=== PATIENT | male | born 1970 | race Caucasian/White ===

== ENCOUNTER 2019-08-25 11:57 | Inpatient (IN) | payer BC ==
[2019-08-25 13:02] LABS: Protime INR 1.24
[2019-08-25 13:03] LABS: Basophils % 0.5 % (0-1.3); Hematocrit 46.4 % (39.6-49.0); Lymphocytes % 5.8 % (15.3-44.8); RBC Red Blood Cell Count 5.08 M/uL (4.33-5.43)
[2019-08-25] MEDS ORDERED: NA CHLORIDE 0.9% 250 ML ONE (13:03)
[2019-08-25] MEDS ORDERED: NA CHLORIDE 0.9% 3,000 ML ONE (13:03)
[2019-08-25] MEDS ORDERED: CEFEPIME 2 GM VIAL ONE (13:03)
[2019-08-25] MEDS ORDERED: VANCOMYCIN/NS 1 gm 1 GM/250 ML BAG IV ONE ×3 (13:15→18:00)
[2019-08-25 13:16] LABS: ALT/SGPT 32 U/L (12-78); AST/SGOT 11 U/L (15-37); Albumin 3.4 g/dL (3.4-5.0); Alkaline Phosphatase 119 U/L (45-117); BUN Blood Urea Nitrogen 15 mg/dL (7-18); Bicarbonate 19 mmol/L (21-32); Bilirubin Direct 0.5 mg/dL (0-0.2); Bilirubin Total 1.4 mg/dL (0.2-1.0); CKMB Creatine Kinase MB < 1.0 ng/mL (0.3-3.6); Creatine Phosphokinase 55 U/L (39-308); Glucose Level 266 mg/dL (74-106); Lipase 119 U/L (73-393); Potassium 4.2 mmol/L (3.5-5.1); Protein, Total 8.3 g/dL (6.4-8.2); Sodium Level 126 mmol/L (136-145); Troponin (Emerg Dept Use Only) < 0.02 ng/mL (0.0-0.045)
[2019-08-25] MEDS ORDERED: FAMOTIDINE 20 MG/2 ML VIAL IV ONE (13:34)
[2019-08-25 13:42] LABS: Platelet Estimate ADEQ; Urine White Blood Cell Casts OK
[2019-08-25 13:43] LABS: Blood Morphology Comment NOT SEEN (NOT SEEN)
--- NOTE | 2019-08-25 13:58 | RAD REPORT ---
EXAM DESCRIPTION: RAD - Foot Right 3 View - 08/25/2019 1:29 pm CLINICAL HISTORY: Right foot pain status post injury FINDINGS: No fracture or dislocation is seen Pes planus deformity. Large calcaneal spur. 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 Amputation second phalanx Degenerative changes involve the MTP joints No bony destructive lesions seen
--- NOTE | 2019-08-25 14:01 | RAD REPORT ---
EXAM DESCRIPTION: Estelita Single View08/25/2019 1:29 pm CLINICAL HISTORY: Sepsis COMPARISON: 2017 FINDINGS: The lungs appear clear of acute infiltrate. The heart is normal size IMPRESSION: No acute abnormalities displayed
[2019-08-25] MEDS ORDERED: INSULIN -REGULAR HUMAN 50 UNIT/0.5 ML ML ONE (14:48)
--- NOTE | 2019-08-25 14:52 | ER ---
Nurse's Notes [facility] Name: Roverto Figueroa Age: 49 yrs Sex: Male : 1970 Arrival Date: 08/25/2019 Time: 12:[address] Private MD: Diagnosis: Cellulitis of right lower limb-foot Presentation: 08/25 12:15 Presenting complaint: Patient states: increased swelling to right foot, increased pain, iw black dot on very bottom and on side, hx of toe dislocation that never healed right, also feeling feverish X 2 days, vomiting last night. Transition of care: patient was not received from another setting of care. Onset of symptoms was August 23, 2019. Risk Assessment: Do you want to hurt yourself or someone else? Patient reports no desire to harm self or others. Initial Sepsis Screen: Does the patient meet any 2 criteria? HR > 90 bpm. Care prior to arrival: None. 12:15 Method Of Arrival: Wheelchair iw 12:15 Acuity: KAMRYN 3 iw 12:30 Initial Sepsis Screen: Does the patient have a suspected source of infection? Yes: Skin sg breakdown/wound. Historical: - Allergies: 12:18 No Known Allergies; iw - PMHx: 12:18 Diabetes - NIDDM; Hypertension; iw - PSHx: 12:18 None; iw - Immunization history:: Adult Immunizations not up to date. - Social history:: Smoking status: Patient/guardian denies using tobacco. - Ebola Screening: : Patient negative for fever greater than or equal to 101.5 degrees Fahrenheit, and additional compatible Ebola Virus Disease symptoms Patient denies exposure to infectious person Patient denies travel to an Ebola-affected area in the 21 days before illness onset No symptoms or risks identified at this time. Screenin:30 Abuse screen: Denies threats or abuse. Denies injuries from another. Nutritional sg screening: No deficits noted. Tuberculosis screening: No symptoms or risk factors identified. Never had TB. Sepsis Screening: . Infection: Patient has suspected or documented infection. SIRS - Systemic Inflammatory Response Syndrome: 2 or more indicates positive screen: [heart rate greater than 90 beats per minute] [WBC greater than or equal to 12,000/mm3 or less than or equal to 4,000/mm3 or greater than 0.5 K/uL bands]. Assessment: 12:30 General: Appears in no apparent distress. well groomed, well developed, well nourished, sg Behavior is calm, cooperative, appropriate for age. Pain: Pain: Complains of pain in right foot Quality of pain is described as aching, throbbing. 12:30 Neuro: Level of Consciousness is awake, alert, obeys commands, Oriented to person, sg place, time, Inbound Ingredient Logistics Specialist are equal bilaterally Moves all extremities. Gait is steady, Speech is normal, Pupils are PERRLA. Cardiovascular: Patient's skin is warm and dry. Chest pain is denied. Respiratory: Airway is patent Respiratory effort is even, unlabored, Respiratory pattern is regular, symmetrical. GI: Abdomen is round non-distended, Bowel sounds present X 4 quads. Reports normal bowel habits, tolerance of fluids, tolerance of food. : No signs and/or symptoms were reported regarding the genitourinary system. EENT: No signs and/or symptoms were reported regarding the EENT system. Derm: Skin is pink, warm \T\ dry. Skin temperature is hot Wound noted right foot Wound is unstageable due to eschar present at this time. Musculoskeletal: Circulation, motion, and sensation intact. Range of motion: intact in all extremities, Swelling present in right foot. 12:37 Reassessment: a code sepsis has been called. sg 12:58 Reassessment: Patient appears in no apparent distress at this time. pt requesting an sg antacid at this time, notified, orders received, pt medicated see EMAR. 15:50 Reassessment: a repeat lactate level has been drawn and sent per hospital sepsis sg protocol, awaiting results at this time. 15:56 Reassessment: Patient appears in no apparent distress at this time. ultrasound at sg bedside at this time. 16:10 Reassessment: Patient appears in no apparent distress at this time. Patient and/or sg family updated on plan of care and expected duration. Pain level reassessed. Patient is alert, oriented x 3, equal unlabored respirations, skin warm/dry/pink. ultrasound remains at bedside, pt to go to CT after Ultrasound, CT awaiting pt at this time, report called to Jigar COOK, pt to go to 2nd floor after radiology exam. Vital Signs: 12:17 BP 147 / 86; Pulse 130; Resp 18 S; Temp 99.1(O); Pulse Ox 97% on R/A; Weight 108.86 kg; iw Height 6 ft. (182.88 cm); Pain 8/10; 13:31 BP 142 / 80; Pulse 114; Resp 17; Temp 99.2; Pulse Ox 98% on R/A; sg 15:24 Pulse 102; Resp 17; Temp 99.0; Pulse Ox 99% on R/A; sg 12:17 Body Mass Index 32.55 (108.86 kg, 182.88 cm) iw ED Course: 12:04 Patient arrived in ED. mr 12:17 Triage completed. iw 12:17 Arm band placed on. iw 12:22 Kali Valiente, RN is Primary Nurse. sg 12:25 Sanju Jacobo MD is Attending Physician. kdr 12:26 Blood Glucose level 283 mg/dL. dh3 12:30 Patient has correct armband on for positive identification. Bed in low position. Call sg light in reach. Side rails up X2. Pulse ox on. NIBP on. Warm blanket given. Head of bed elevated. 12:38 Initial lab(s) drawn, by ED staff, sent to lab. Inserted saline lock: 20 gauge in right sg antecubital area, using aseptic technique. Blood collected. 12:40 First set of blood cultures drawn by ct. sg 12:44 EKG done, by ED staff, reviewed by Sanju Jacobo MD. dh3 13:30 Chest Single View XRAY In Process Unspecified. EDMS 13:30 Foot Right 3 View XRAY In Process Unspecified. EDMS 14:50 Paul Gutierrez MD is Hospitalizing Provider. kdr 16:14 No provider procedures requiring assistance completed. Patient admitted, IV remains in sg place. intact, No redness/swelling at site. Administered Medications: 12:58 Drug: NS 0.9% (30 ml/kg) 30 ml/kg Route: IV; Rate: bolus; Site: right antecubital; sg 15:40 Follow up: Response: No adverse reaction; IV Status: Completed infusion; IV Intake: sg 3265ml 12:58 Drug: Cefepime 2 grams Route: IVPB; Rate: 200 ml/hr; Infused Over: 30 mins; Site: right sg antecubital; 13:48 Drug: Pepcid 20 mg Route: IVP; Site: right antecubital; sg 14:15 Follow up: Response: No adverse reaction sg 13:49 Drug: vancoMYCIN 1 grams Route: IVPB; Infused Over: 2 hrs; Site: right antecubital; sg 14:48 Drug: Insulin Regular Human 6 units {Co-Signature: ragini (Kali Valiente RN).} Route: IVP; hb Site: right upper arm; 15:00 Follow up: Response: No adverse reaction; Blood sugar is lowered; medication was iw administered in the [facility] Intake: 15:40 IV: 3265ml; Total: 3265ml. sg Outcome: 14:51 Decision to Hospitalize by Provider. kdr 16:14 Admitted to Med/surg accompanied by tech, via stretcher, room 214, with chart, Report sg called to Jamie COOK 16:14 Condition: good 16:14 Instructed on the need for admit, safety practices. 16:22 Patient left the ED. sg Signatures: Dispatcher [employer] Kali Cerda RN RN sg Rittger, Kevin, MD MD [facility] Marissa Nadege Garcia RN RN iw Baxter, Heather, RN RN [place] [id number] Kali eid Corrections: (The following items were deleted from the chart) 12:53 12:52 Reassessment: a code sepsis has been called [facility] er 15:18 12:30 Pain: [facility] er 15:19 15:16 Neuro: Level of Consciousness is awake, alert, obeys commands, Oriented to sg person, place, time, Inbound Ingredient Logistics Specialist are equal bilaterally Moves all extremities. Gait is steady, Speech is normal, Pupils are PERRLA, 15:19 15:16 Cardiovascular: Patient's skin is warm and dry. Chest pain is denied sg 15:19 15:16 Respiratory: Airway is patent Respiratory effort is even, unlabored, Respiratory sg pattern is regular, symmetrical, sg 15:19 15:16 GI: Abdomen is round non-distended, Bowel sounds present X 4 quads. Reports sg normal bowel habits, tolerance of fluids, tolerance of food, sg 15:19 15:16 EENT: No signs and/or symptoms were reported regarding the EENT system. sg sg 15:19 15:16 : No signs and/or symptoms were reported regarding the genitourinary system. sg sg 15:19 15:16 Derm: Skin is pink, warm \T\ dry. Skin temperature is hot Wound noted right foot sg sg 15:19 15:16 Musculoskeletal: Circulation, motion, and sensation intact. Range of motion: sg intact in all extremities, Swelling present in right foot sg 15:24 12:30 Derm: Skin is pink, warm \T\ dry. Skin temperature is hot Wound noted right foot sg sg
--- NOTE | 2019-08-25 14:52 | EDPHYS ---
Physician Documentation [facility] Name: Roverto Figueroa Age: 49 yrs Sex: Male : 1970 Arrival Date: 08/25/2019 Time: 12:[address] Private MD: ED Physician Sanju Jacobo HPI: 08/25 15:47 This 49 yrs old Male presents to ER via Wheelchair with complaints of Foot kdr Pain, Feet Swelling. 15:47 The patient presents with swelling, The patient has had chronic swelling of the right kdr foot for several years after having his second toe amputated at [facility]. For the last several days, he has felt poorly with generalized body aches and malaise with subjective fever. he has also noted increased swelling and several lesions to the plantar and medial arch of the right foot.. The complaints affect the right foot. Context: The problem was sustained at home, resulted from a chronic condition, the patient can fully bear weight, the patient is able to ambulate, with mild difficulty. Onset: The symptoms/episode began/occurred gradually, 2 day(s) ago. Modifying factors: The symptoms are alleviated by nothing. Associated signs and symptoms: Pertinent positives: swelling, warmth, Pertinent negatives: calf tenderness, numbness, tingling. Severity of symptoms: At their worst the symptoms were mild, moderate, in the emergency department the symptoms are unchanged. The patient has not experienced similar symptoms in the past. The patient has been recently seen by a physician:. Historical: - Allergies: 12:18 No Known Allergies; iw - PMHx: 12:18 Diabetes - NIDDM; Hypertension; iw - PSHx: 12:18 None; iw - Immunization history:: Adult Immunizations not up to date. - Social history:: Smoking status: Patient/guardian denies using tobacco. - Ebola Screening: : Patient negative for fever greater than or equal to 101.5 degrees Fahrenheit, and additional compatible Ebola Virus Disease symptoms Patient denies exposure to infectious person Patient denies travel to an Ebola-affected area in the 21 days before illness onset No symptoms or risks identified at this time. ROS: 15:47 Constitutional: Negative for fever, chills, and weight loss, Eyes: Negative for injury, kdr pain, redness, and discharge, Neck: Negative for injury, pain, and swelling, Cardiovascular: Negative for chest pain, palpitations, and edema, Respiratory: Negative for shortness of breath, cough, wheezing, and pleuritic chest pain, Abdomen/GI: Negative for abdominal pain, nausea, vomiting, diarrhea, and constipation, Back: Negative for injury and pain, : Negative for injury, bleeding, discharge, and swelling, Skin: Negative for injury, rash, and discoloration, Neuro: Negative for headache, weakness, numbness, tingling, and seizure activity. Psych: Negative for depression, anxiety, suicide ideation, homicidal ideation, and hallucinations, Allergy/Immunology: Negative for hives, rash, and allergies, Endocrine: Negative for neck swelling, polydipsia, polyuria, polyphagia, and marked weight changes, Hematologic/Lymphatic: Negative for swollen nodes, abnormal bleeding, and unusual bruising. 15:47 MS/extremity: Positive for contusion, decreased range of motion, deformity, pain, swelling, tenderness, warmth, of the right ankle, medial aspect of right foot and dorsum of right foot, Negative for injury or acute deformity. Exam: 15:47 Constitutional: This is a well developed, well nourished patient who is awake, alert, kdr and in no acute distress. Head/Face: Normocephalic, atraumatic. Eyes: Pupils equal round and reactive to light, extra-ocular motions intact. Lids and lashes normal. Conjunctiva and sclera are non-icteric and not injected. Cornea within normal limits. Periorbital areas with no swelling, redness, or edema. ENT: Nares patent. No nasal discharge, no septal abnormalities noted. Tympanic membranes are normal and external auditory canals are clear. Oropharynx with no redness, swelling, or masses, exudates, or evidence of obstruction, uvula midline. Mucous membranes moist. Neck: Trachea midline, no thyromegaly or masses palpated, and no cervical lymphadenopathy. Supple, full range of motion without nuchal rigidity, or vertebral point tenderness. No Meningismus. Chest/axilla: Normal chest wall appearance and motion. Nontender with no deformity. No lesions are appreciated. Cardiovascular: Regular rate and rhythm with a normal S1 and S2. No gallops, murmurs, or rubs. Normal PMI, no JVD. No pulse deficits. Respiratory: Lungs have equal breath sounds bilaterally, clear to auscultation and percussion. No rales, rhonchi or wheezes noted. No increased work of breathing, no retractions or nasal flaring. Abdomen/GI: Soft, non-tender, with normal bowel sounds. No distension or tympany. No guarding or rebound. No evidence of tenderness throughout. Back: No spinal tenderness. No costovertebral tenderness. Full range of motion. Skin: Warm, dry with normal turgor. Normal color with no rashes, no lesions, and no evidence of cellulitis. Neuro: Awake and alert, GCS 15, oriented to person, place, time, and situation. Cranial nerves II-XII grossly intact. Motor strength 5/5 in all extremities. Sensory grossly intact. Cerebellar exam normal. Normal gait. Psych: Awake, alert, with orientation to person, place and time. Behavior, mood, and affect are within normal limits. 15:47 Musculoskeletal/extremity: The right foot has two lesions on the plantar and medial arch which are non-draining currently. The patient has limited pain sensation due to his peripheral neuroapthy. Vital Signs: 12:17 BP 147 / 86; Pulse 130; Resp 18 S; Temp 99.1(O); Pulse Ox 97% on R/A; Weight 108.86 kg; iw Height 6 ft. (182.88 cm); Pain 8/10; 13:31 BP 142 / 80; Pulse 114; Resp 17; Temp 99.2; Pulse Ox 98% on R/A; sg 15:24 Pulse 102; Resp 17; Temp 99.0; Pulse Ox 99% on R/A; sg 12:17 Body Mass Index 32.55 (108.86 kg, 182.88 cm) iw MDM: 14:51 Patient medically screened. kdr 15:47 Data reviewed: vital signs, nurses notes, lab test result(s), radiologic studies. kdr Counseling: I had a detailed discussion with the patient and/or guardian regarding: the historical points, exam findings, and any diagnostic results supporting the discharge/admit diagnosis, lab results, radiology results, the need for further work-up and treatment in the hospital. 08/25 12:29 Order name: Basic Metabolic Panel; Complete Time: 14:32 kdr 08/25 12:29 Order name: Blood Culture Adult (2) kdr 08/25 12:29 Order name: CBC with Diff; Complete Time: 14:32 kdr 08/25 12:29 Order name: Ckmb; Complete Time: 14:32 kdr 08/25 12:29 Order name: CPK; Complete Time: 14:32 kdr 08/25 12:29 Order name: Lactate; Complete Time: 14:32 kdr 08/25 12:29 Order name: LFT's; Complete Time: 14:32 kdr 08/25 12:29 Order name: Lipase; Complete Time: 14:32 kdr 08/25 12:29 Order name: Procalcitonin; Complete Time: 14:32 kdr 08/25 12:29 Order name: Protime (+inr); Complete Time: 14:32 kdr 08/25 12:29 Order name: Ptt, Activated; Complete Time: 14:32 kdr 08/25 12:29 Order name: Troponin (emerg Dept Use Only); Complete Time: 14:32 kdr 08/25 12:29 Order name: Urine Microscopic Only kdr 08/25 12:38 Order name: Glucose, Ancillary Testing; Complete Time: 14:32 EDMS 08/25 12:29 Order name: Chest Single View XRAY; Complete Time: 14:32 kdr 08/25 12:57 Order name: Foot Right 3 View XRAY; Complete Time: 14:32 kdr 08/25 13:36 Order name: CBC Smear Scan; Complete Time: 14:32 EDMS 08/25 14:37 Order name: Chem 7 kdr 08/25 15:22 Order name: CBC with Automated Diff EDMS 08/25 15:22 Order name: CBC with Automated Diff EDMS 08/25 15:22 Order name: Comprehensive Metabolic Panel EDMS 08/25 15:22 Order name: Comprehensive Metabolic Panel EDMS 08/25 15:22 Order name: Troponin I EDMS 08/25 15:22 Order name: Troponin I EDMS 08/25 15:23 Order name: Troponin I EDMS 08/25 15:23 Order name: Troponin I EDMS 08/25 15:23 Order name: Vancomycin Level Trough EDMS 08/25 15:23 Order name: Vancomycin Level Trough EDMS 08/25 15:23 Order name: Extremity Venous Uni Ltd EDMS 08/25 12:29 Order name: Accucheck; Complete Time: 12:46 kdr 08/25 12:29 Order name: Cardiac monitoring; Complete Time: 12:46 kdr 08/25 12:29 Order name: EKG - Nurse/Tech; Complete Time: 12:46 kdr 08/25 12:29 Order name: IV Saline Lock - Large Bore; Complete Time: 12:46 kdr 08/25 12:29 Order name: Labs collected and sent; Complete Time: 12:46 kdr 08/25 12:29 Order name: O2 Per Protocol; Complete Time: 12:46 kdr 08/25 12:29 Order name: O2 Sat Monitoring; Complete Time: 12:46 kdr 08/25 15:22 Order name: CONS Pharmacy Consult EDMS 08/25 15:22 Order name: Consistent Carb (ADA) 1800 Yfn EDMS 08/25 15:42 Order name: Lower Ext Wo Con W/ Mpr EDMS 08/25 15:42 Order name: Labs - recollect needed: repeat lactate due now; Complete Time: 15:56 iw Administered Medications: 12:58 Drug: NS 0.9% (30 ml/kg) 30 ml/kg Route: IV; Rate: bolus; Site: right antecubital; sg 15:40 Follow up: Response: No adverse reaction; IV Status: Completed infusion; IV Intake: sg 3265ml 12:58 Drug: Cefepime 2 grams Route: IVPB; Rate: 200 ml/hr; Infused Over: 30 mins; Site: right sg antecubital; 13:48 Drug: Pepcid 20 mg Route: IVP; Site: right antecubital; sg 14:15 Follow up: Response: No adverse reaction sg 13:49 Drug: vancoMYCIN 1 grams Route: IVPB; Infused Over: 2 hrs; Site: right antecubital; sg 14:48 Drug: Insulin Regular Human 6 units {Co-Signature: ragini (Kali Valiente RN).} Route: IVP; hb Site: right upper arm; 15:00 Follow up: Response: No adverse reaction; Blood sugar is lowered; medication was iw administered in the [facility] Disposition: 08/25/19 14:51 Hospitalization ordered by Paul Gutierrez for Inpatient Admission. Preliminary diagnosis is Cellulitis of right lower limb - foot. - Bed requested for Telemetry/MedSurg (Inpatient). - Status is Inpatient Admission. sg - Condition is Fair. - Problem is new. - Symptoms have improved. UTI on Admission? No Signatures: Dispatcher [facility] Oksana Jackson RN RN Kali Valiente RN RN sg Sanju Jacobo MD MD [facility] Nadege Dangelo RN RN Dyan Ellison RN RN Kali Valiente RN Corrections: (The following items were deleted from the chart) 15:42 15:22 CT RIGHT FOOT WO CONTRAST ordered. EDMS EDMS 16:01 14:51 Hospitalization Ordered by Paul Gutierrez MD for Inpatient Admission. Preliminary dw diagnosis is Cellulitis of right lower limb - foot. Bed requested for Telemetry/MedSurg (Inpatient). Status is Inpatient Admission. Condition is Fair. Problem is new. Symptoms have improved. UTI on Admission? No. kdr 16:22 16:01 08/25/2019 14:51 Hospitalization Ordered by Paul Gutierrez MD for Inpatient sg Admission. Preliminary diagnosis is Cellulitis of right lower limb - foot. Bed requested for Telemetry/MedSurg (Inpatient). Status is Inpatient Admission. Condition is Fair. Problem is new. Symptoms have improved. UTI on Admission? No. dw
[2019-08-25] MEDS ORDERED: MORPHINE 2 MG/ML SYR IV PRN (15:10)
[2019-08-25] MEDS ORDERED: ONDANSETRON 4 MG/2 ML VIAL IV PRN (15:10)
[2019-08-25] MEDS ORDERED: ALBUTEROL 2.5 MG/3 ML NEB SOL NEB PRN (15:10)
[2019-08-25] MEDS ORDERED: HYDRALAZINE HCL 20 MG/ML VIAL IV PRN (15:13)
[2019-08-25] MEDS ORDERED: MELATONIN 5 MG TABLET PO PRN (15:13)
[2019-08-25] MEDS ORDERED: GLUCAGON 1 MG/VIAL IM PRN (15:14)
[2019-08-25] MEDS ORDERED: D50W 25 GM/50 ML SYRINGE/VIAL IV PRN (15:14)
[2019-08-25 15:31] LABS: Potassium 4.1 mmol/L (3.5-5.1)
[2019-08-25] MEDS ORDERED: VANCOMYCIN 1.25 GM in NA CHLORIDE 0.9% 250 ML IVPB ONE (16:00)
--- NOTE | 2019-08-25 17:04 | RAD REPORT ---
EXAM DESCRIPTION: USExtremity Venous Uni Ltd08/25/2019 4:23 pm CLINICAL HISTORY: Right leg pain and swelling. COMPARISON: 2018 FINDINGS: Right common femoral, superficial femoral, popliteal and right posterior tibial veins are compressible and demonstrate augmentation. Doppler demonstrates good flow. IMPRESSION: No evidence of deep venous thrombosis involving the right lower extremity.
[2019-08-25 17:07] VITALS: BMI 33.7
[2019-08-25] MEDS: NA CHLORIDE 0.9% 1,000 ML IV SCH (17:08)
[2019-08-25] MEDS: ENOXAPARIN 40 MG/0.4 ML SQ SCH (17:11)
[2019-08-25] MEDS: INSULIN -REGULAR HUMAN 50 UNIT/0.5 ML ML SQ SCH ×2 (17:12→21:33)
--- NOTE | 2019-08-25 17:23 | RAD REPORT ---
EXAM DESCRIPTION: CT - Lower Ext Wo Con W/ Mpr - 08/25/2019 4:33 pm CLINICAL HISTORY: Right foot swelling and pain COMPARISON: August 25, 2019 x-ray right foot TECHNIQUE: Computed axial tomography of the right ankle and foot obtained. Contrast was not requeste d All CT scans are performed using dose optimization technique as appropriate and may include automated exposure control or mA/KV adjustment according to patient size. FINDINGS: Diffuse edema is present within the medial subcutaneous and plantar subcutaneous tissues Narrowing of the MTP joints with bony fragmentation and subchondral sclerosis. No additional bony katerina tructive lesion is noted. Chronic lateral subluxation of the base of the second metatarsal. Amputation second proximal phalanx. 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 If this remains a clinical concern MRI would be recommende d
[2019-08-25] MEDS: INSULIN GLARGINE 100 UNITS/ML SQ SCH (18:00)
[2019-08-25] MEDS ORDERED: INFLUENZA VACCINE (for 3y+) 0.5 ML DOSE IMVAC ONE (21:00)
[2019-08-25] MEDS ORDERED: PNEUMOCOCCAL VACCINE 0.5 ML IMVAC ONE (21:00)
[2019-08-25] MEDS: ACETAMINOPHEN 325 MG TABLET PO PRN (21:45)
[2019-08-26] MEDS: NA CHLORIDE 0.9% 1,000 ML IV SCH ×2 (02:00→05:30)
--- NOTE | 2019-08-26 03:49 | HP ---
Date of Admission: 08/25/2019 Presenting Complaint: Right foot swelling and pain. History Of Present Illness: Carolina Layne is a 49-year-old male with past medical history of hypertension, diabetes mellitus, history of right second digit amputation 2 years ago, complicated with chronic lower extremity swelling. The patient presented now because of worsening swelling with pain and new-onset fever since the last 3 weeks. The patient states the swelling has limited ambula tion. He denies any recent travel. He denies any shortness of breath. He admit to fever and chills at home, associated with intermittent nausea and decreased p.o. intake since the last 4 days. On ar rival in the ED, he was noted with a temperature of 99.1. The patient was also noted to be markedly tachycardic at 130 beats per minute. He was started on IV fluids and his heart rate has improved to 100 beats per minute now. The patient states he has had chronic swelling of the right foot, since en he was told to wear compression stockings, which he hardly does. He does recall history of infect ion in the foot resulting in amputation of the leg. He did have a 6-week course of IV antibiotics wi th PICC line after the second digit amputation on that same leg. He admit to intermittent swelling o n the left side, but not as much as the right. Past Medical History: Significant for hypertension, diabetes mellitus, obesity. Home Medications: Patient on meds. will bring home medications list. The patient d oes recall he takes metformin as well as a type of insulin. Allergies: NO KNOWN DRUG ALLERGY. Social History: He is a former smoker, quit about 5 years ago. No history of alcohol or illicit kalee g use. 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 He is and r esides with the in the community. Family History: Significant for father with history of bladder cancer. Mom with . No fam scott history of coronary artery disease, CVA, or DVTs. Review of Systems: All systems reviewed x14 were negative except as mentioned above. Physical Examination: Current Vitals: Blood pressure of 138/76; pulse of 100 to 104, improved from 136 on presentation; te mperature 99.1; O2 saturation of 96% on room air. General: Obese, middle-aged male, lying in bed, not in any distress. Head: Atraumatic, normocephalic. Pupils equal and reactive to light. [place] conjunctivae. Anicteric . Moist oral mucosa. Neck: No JVD. No carotid bruit. Respiratory: Good air entry. No crepitations. Cardiovascular: S1, S2, tachycardic with no murmur. GI: Abdomen obese, but soft. Bowel sounds positive in all 4 quadrants. No ascites by shifting dull ness. No suprapubic fullness. Extremities: Trace left lower extremity pedal edema. No calf tenderness. Right lower extremity wit h 2+ pedal edema and erythema just above the ankle area. Notable crescent-shaped distention, edemato us erythema extending from the medial malleolar region and crossing over to the base of the metatarsa ls. Area of darkened focus at the plantar surface in midway of crescent. Also noted bullae on the m edial surface of the crescent just above the arch of the foot. Tenderness to palpation all over the right foot also noted. Neuro: Patient is alert and oriented. Cranial nerves 2 through 12 grossly intact. No neurological focal motor deficits Laboratory Data: EKG on presentation shows sinus tach at a rate of 134 beats per minute. No ST-segm ent changes. WBC 7.2, hemoglobin 16, platelet 183, neutrophils 65, no bands. INR 1.2, PTT 29. Sodi um 126, chloride 91, bicarb 19, creatinine 1.2, glucose 266. Lactic acid 2.1. Troponin less than 0. 01. CK 55, albumin of 3.4, lipase 119. Procalcitonin of 0.61, T-bilirubin of 1.4. Urinalysis pendi ng. Chest x-ray shows no acute intrathoracic abnormality. Foot History: X-ray of the right foot shows a large calcaneal spur, pes planus deformity noted as we ll as chronic lateral subluxation base of the second metatarsal, amputation of the second phalanx not ed. Impression: 1.Right foot cellulitis. 2.Chronic right foot edema, likely due to calcaneal spur, osteoarthritis. 3.Hypertension. 4.Diabetes mellitus. 5.Impending sepsis given patient's tachycardia as well as borderline fever on presentation. Plan: 1.We will admit patient to inpatient status. My impression for the following right foot cellulitis is suspicions for osteomyelitis of the calcaneal base of metatarsal heads given previous right foot s econd digit amputation. We will obtain a CT of the right foot now to rule out evidence of osteomyeli tis. We will start patient on empiric vancomycin and clindamycin p.o. We will obtain blood cultures x2. We will do pain medication with Tylenol and [place] as needed. We will follow CBC trend since le ukocytosis. 2.Presumed sepsis. Continue IV fluid. Follow repeat lactic level. Continue antibiotics as stated. 3.Hypertension. Patient to update and bring home medications list. We will do IV hydralazine p.r.n . for now. 4.Diabetes mellitus. We will start the patient on Levemir insulin 50 units b.i.d. until home insuli n regimen is known. We will start insulin sliding scale with Accu-Cheks AC and at bedtime. 5.DVT prophylaxis. We will obtain ultrasound of the right foot to rule out DVT. We will start marisa ent on Lovenox subcu. 6.Advanced directives. Patient is a full code. Total time spent on review of record, discussion with patient and evaluation greater than 60 minutes. EO/MODL Voice ID: [id number]
[2019-08-26] MEDS ORDERED: VANCOMYCIN 1.25 GM in NA CHLORIDE 0.9% 250 ML IVPB SCH (04:00)
[2019-08-26] MEDS: VANCOMYCIN 2 GM in NA CHLORIDE 0.9% 500 ML IVPB SCH ×2 (05:30→16:41)
[2019-08-26 05:37] LABS: Basophils % 0.3 % (0-1.3); Hematocrit 41.6 % (39.6-49.0); Lymphocytes % 7.9 % (15.3-44.8); MPV 7.8 fL (7.6-11.3); RBC Red Blood Cell Count 4.52 M/uL (4.33-5.43)
[2019-08-26 05:55] LABS: ALT/SGPT 21 U/L (12-78); AST/SGOT 13 U/L (15-37); Albumin 2.7 g/dL (3.4-5.0); Alkaline Phosphatase 101 U/L (45-117); BUN Blood Urea Nitrogen 11 mg/dL (7-18); Bicarbonate 22 mmol/L (21-32); Glucose Level 173 mg/dL (74-106); Potassium 3.9 mmol/L (3.5-5.1); Sodium Level 133 mmol/L (136-145); Troponin I < 0.02 ng/mL (0.0-0.045)
[2019-08-26] MEDS: ENOXAPARIN 40 MG/0.4 ML SQ SCH (08:26)
[2019-08-26] MEDS: INSULIN -REGULAR HUMAN 50 UNIT/0.5 ML ML SQ SCH ×4 (08:26→21:43)
--- NOTE | 2019-08-26 10:12 | EKG ---
Test Date: 2019-08-25 Test Time: 12:44:49 Dianeticist: REMY MEASUREMENT RESULTS: Intervals: Rate: 118 SC: 148 QRSD: 92 QT: 320 QTc: 448 [place]: P: 42 SC: 148 QRS: 6 T: 76 INTERPRETIVE STATEMENTS: Sinus tachycardia Septal infarct, age undetermined Abnormal ECG No previous ECG available for comparison Electronically Signed On 08-26-19 10:11:52 FLOOR MECHANIC by Kerwin Damon
--- NOTE | 2019-08-26 10:46 | P.PN ---
Subjective Date of Service: 08/26/19 Chief Complaint: seen , adm for right foot cellulitis Subjective: No new changes, No C/O voiced admit to diaphoresis overnight but no fever now Review of Systems 10-point ROS is otherwise unremarkable Physical Examination - Vital Signs Temperature: 99.4 F Blood Pressure: 133/73 Pulse: 106 Respirations: 20 Pulse Ox (%): 96 - Physical Exam General: Alert, In no apparent distress, Obese HEENT: Atraumatic, Normocephalic, PERRLA, Mucous membr. moist/pink Neck: Supple, JVD not distended Respiratory: Clear to auscultation bilaterally, Normal air movement Cardiovascular: Normal pulses, Regular rate/rhythm, Normal S1 S2 Gastrointestinal: Normal bowel sounds, No tenderness Musculoskeletal: Swelling, Erythema, Tenderness (right foot , new extension blister of prior small blister on foot ) Neurological: Normal gait, Normal speech - Studies Laboratory Data (last 24 hrs) 08/25/19 15:00: Sodium 131 L, Potassium 4.1, BUN 13, Creatinine 1.03, Glucose 229 H 08/25/19 12:38: PT 14.5 H, INR 1.24, APTT 29.6 08/25/19 12:38: WBC 17.2 H, Hgb 16.4, Hct 46.4, Plt Count 183 08/25/19 12:38: Sodium 126 L, Potassium 4.2, BUN 15, Creatinine 1.23, Glucose 266 H, Total Bilirubin 1.4 H, AST 11 L, ALT 32, Alkaline Phosphatase 119 H, Lipase 119 Laboratory Last Values WBC 12.2 K/uL (4.3-10.9) H D 08/26/19 05:11 RBC 4.52 M/uL (4.33-5.43) 08/26/19 05:11 Hgb 14.6 g/dL (13.6-17.9) 08/26/19 05:11 Hct 41.6 % (39.6-49.0) 08/26/19 05:11 MCV 92.1 fL (80-100) 08/26/19 05:11 MCH 32.2 pg (27.0-35.0) 08/26/19 05:11 MCHC 35.0 g/dL (32.0-36.0) 08/26/19 05:11 RDW 13.5 % (12.1-15.2) 08/26/19 05:11 Plt Count 162 K/uL (152-406) 08/26/19 05:11 MPV 7.8 fL (7.6-11.3) 08/26/19 05:11 Neutrophils % 82.8 % (41.7-73.7) H 08/26/19 05:11 Lymphocytes % 7.9 % (15.3-44.8) L 08/26/19 05:11 Monocytes % 8.8 % (3.3-12.3) 08/26/19 05:11 Eosinophils % 0.2 % (0-4.4) 08/26/19 05:11 Basophils % 0.3 % (0-1.3) 08/26/19 05:11 Absolute Neutrophils 10.1 K/uL (1.8-8.0) H 08/26/19 05:11 Absolute Lymphocytes 1.0 K/uL (0.7-4.9) 08/26/19 05:11 Absolute Monocytes 1.1 K/uL (0.1-1.3) 08/26/19 05:11 Absolute Eosinophils 0.0 K/uL (0-0.5) 08/26/19 05:11 Absolute Basophils 0.0 K/uL (0-0.5) 08/26/19 05:11 Morphology Comment Not seen (NOT SEEN) 08/25/19 12:38 PT 14.5 SECONDS (9.5-12.5) H 08/25/19 12:38 INR 1.24 08/25/19 12:38 APTT 29.6 SECONDS (24.3-36.9) 08/25/19 12:38 Sodium 133 mmol/L (136-145) L 08/26/19 05:11 Potassium 3.9 mmol/L (3.5-5.1) 08/26/19 05:11 Chloride 102 mmol/L (98-107) 08/26/19 05:11 Carbon Dioxide 22 mmol/L (21-32) 08/26/19 05:11 BUN 11 mg/dL (7-18) 08/26/19 05:11 Creatinine 0.86 mg/dL (0.55-1.3) 08/26/19 05:11 Estimated GFR > 90 mL/min (=/>90) 08/26/19 05:11 Glucose 173 mg/dL (74-106) H 08/26/19 05:11 POC Glucose 199 mg/dl (65-120) H 08/26/19 07:58 Lactic Acid 2.4 mmol/L (0.4-2.0) H 08/25/19 15:50 Calcium 8.4 mg/dL (8.5-10.1) L 08/26/19 05:11 Total Bilirubin 1.0 mg/dL (0.2-1.0) 08/26/19 05:11 Direct Bilirubin 0.5 mg/dL (0-0.2) H 08/25/19 12:38 AST 13 U/L (15-37) L 08/26/19 05:11 ALT 21 U/L (12-78) 08/26/19 05:11 Alkaline Phosphatase 101 U/L (45-117) 08/26/19 05:11 Creatine Kinase 55 U/L (39-308) 08/25/19 12:38 CK-MB (CK-2) < 1.0 ng/mL (0.3-3.6) 08/25/19 12:38 Rapid Troponin I < 0.02 ng/mL (0.0-0.045) 08/25/19 12:38 Troponin I < 0.02 ng/mL (0.0-0.045) 08/26/19 05:11 Serum Total Protein 7.0 g/dL (6.4-8.2) 08/26/19 05:11 Albumin 2.7 g/dL (3.4-5.0) L 08/26/19 05:11 Globulin 4.3 g/dL (2.3-3.5) H D 08/26/19 05:11 Albumin/Globulin Ratio 0.6 (1.1-1.8) L 08/26/19 05:11 Lipase 119 U/L (73-393) 08/25/19 12:38 Procalcitonin 0.61 ng/mL (<0.50) H 08/25/19 12:38 Urine RBC Cancelled 08/25/19 12:29 Urine WBC Cancelled 08/25/19 12:29 Ur Squamous Epith Cells Cancelled 08/25/19 12:29 Ur Urothelial Cells Cancelled 08/25/19 12:29 Calcium Oxalate Crystal Cancelled 08/25/19 12:29 Uric Acid Crystals Cancelled 08/25/19 12:29 Triple Phos Crystals Cancelled 08/25/19 12:29 Other Crystals Cancelled 08/25/19 12:29 Amorphous Sediment Cancelled 08/25/19 12:29 Glitter Cells Cancelled 08/25/19 12:29 Urine Bacteria Cancelled 08/25/19 12:29 Hyaline Casts Cancelled 08/25/19 12:29 Fine Granular Casts Cancelled 08/25/19 12:29 Coarse Granular Casts Cancelled 08/25/19 12:29 Waxy Casts Cancelled 08/25/19 12:29 RBC Casts Cancelled 08/25/19 12:29 WBC Casts Cancelled 08/25/19 12:29 Urine Mucus Cancelled 08/25/19 12:29 Urine Other Cancelled 08/25/19 12:29 Urine Trichomonas Cancelled 08/25/19 12:29 Urine Yeast Cancelled 08/25/19 12:29 Ur Yeast w Hyphae Cancelled 08/25/19 12:29 Urine Yeast (Budding) Cancelled 08/25/19 12:29 Urine Sperm Cancelled 08/25/19 12:29 Urine Culture Reflexed Cancelled 08/25/19 12:29 Urine Total Volume Cancelled 08/25/19 12:29 Medications List Reviewed: Yes Assessment & Plan - Problems (Diagnosis) (1) Navicular fracture, foot Current Visit: Yes Status: Acute (2) Cellulitis and abscess of foot Current Visit: Yes Status: Acute (3) Diabetes Current Visit: Yes Status: Acute (4) HTN (hypertension) Current Visit: Yes Status: Acute (5) Osteomyelitis Current Visit: No Status: Acute Discharge Plan: Home Plan to discharge in: 48 Hours - Code Status/Comfort Care Code Status Assessed: Yes Code Status: Full Code Physician Review: Patient Assessed, Agree with Above Assessment and Plan Physician Review Additional Text: # Right Foot cellulitis - worsening area of blister - will consult surgery for possible debridement -c/w abx with vanco and clindamycin -CT did not show osteo , will cash for bone scan in am # DM -c/w regime , controlled # HTN -controlled # Right foot navicular fracture- may need ortho evel Dispo - for another 2-3 days Time Spent Managing Pts Care (In Minutes): 30
[2019-08-26] MEDS: INSULIN GLARGINE 100 UNITS/ML SQ SCH (16:40)
--- NOTE | 2019-08-26 18:40 | CON ---
Date of Consultation: 08/26/2019 Brief History Of Present Illness: Patient is a 49-year-old male with past medical history of hypertension, diabetes, and right 2nd digit amputation of the foot approximately 2 years ago, comp licated with chronic lower extremity swelling. The swelling got significantly worse over the past 3 weeks and pain increased as well as some redness to the dorsal aspect of the foot as well as drainage on the bottom of his foot. It has limited his ambulation due to this and he has been having worseni ng limp over the past similar episode of time and somewhat before this. He admits to fever and chill s at home associated with intermittent nausea, decreased p.o. intake over the last 4 days. Past Medical History: Significant for hypertension, diabetes, and obesity. Past Surgical History: Amputation of the right great toe as described. Allergies: NO KNOWN DRUG ALLERGIES. Home Medications: Included amlodipine, gabapentin, Lantus, metformin, and HydroDIURIL (hydrochloroth iazide). Social History: He is a former smoker, quitting approximately 5 years ago. He denies recreational d rug use, but does drink alcohol on occasion. 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 He lives with his . Family History: Significant for bladder cancer in his father. Review of Systems: A 10-point review of systems other than HPI, denies. Physical Examination: Vital Signs: At the time of examination, his blood pressure was 133/73, heart rate was 106, respirat ory rate 20, temperature 99.4. General: He is awake, alert, oriented. Psychiatric: Appropriate. Conversive. HEENT: Normocephalic. Sclerae anicteric. Mucous membranes moist. Oropharynx clear. Neck: Supple. No JVD. Chest: Normal expansion and excursion. Cardiovascular: Regular rate and rhythm. Pulmonary: Clear to auscultation bilaterally. Abdomen: Soft. Extremities: Focused examination of right lower extremity, he has a swollen right foot and a 2nd dig it phalanx amputation of the right foot. In addition, there is redness and streaking in the area con sistent with an infection. He does have drainage from the plantar aspect of the foot along the mid f oot near the 2nd and 3rd webspace. In addition, he has a blood blister on the side of his foot, whic h does not appear to have pus. It seems only to have blood material, which is seen through the trans lucent skin. He has a Charcot joint appearing foot generally with an enlargement of the area and the redness extends below the tibia on the right foot. There is minimal tenderness to the area. Remain elvia of the skin examination is unremarkable. Laboratory Data: Reveals a white blood count of 12.2, hemoglobin is 14.6, hematocrit of 41.6, platel et count is 162, neutrophils of 82%. Coagulation shows a PT of 14.5, INR 1.24, PTT is 29.6. His jennifer shannan shows a sodium 133, potassium 3.9, chloride 102, carbon dioxide 22, BUN 11, creatinine 0.8, gl ucose is 173. Lactic acid was 2.4 on admission. Total bilirubin is 1.4 on admission, now 1.0. AST 13, ALT 20, alkaline phosphatase is 101. Troponin less than 0.02 on 2 checks. Lipase is 119. Proca lcitonin 0.61. He had imaging performed, which included an extremity venous study, which showed no D VT in the right lower extremity. Lower extremity CT scan of the right foot was officially read as di ffuse edema within the medial subcutaneous and plantar subcutaneous tissues, likely cellulitis. Carroll ed degenerative changes involving the MTP joints, indicates a neuropathic joint and small nondisplace d fracture of the navicular bone. No radiographic evidence of osteomyelitis. He additionally had a foot x-ray on the right foot, which is officially read as no fracture, dislocation. Has planus defor mity, large calcaneal spur, chronic lateral subluxation at base of the 2nd metatarsal, amputation of the 2nd phalanx. Degenerative changes along the MTP. No bony destructive lesions appreciated. He h ad a chest x-ray performed as well, which is officially read as no acute abnormalities displayed. Assessment And Plan: This is a 49-year-old male who comes in with an infection of his right foot wit h some fluid on the plantar aspect and a blood blister on the lateral aspect. I have explained risks , benefits, and alternatives of debridement of this necrotic tissue and drainage of the fluid collect ion as well as culture, including but not limited to, bleeding, infection, damage to surrounding tiss ues, limb loss, need for further operation and procedures. In addition, I recommend continue IV flui ds, antibiotics, medical management. The patient agrees to proceed as indicated. JOE/RUTH ANN Voice ID: [id number] Report ID: [id number]
[2019-08-27 05:56] LABS: Troponin I < 0.02 ng/mL (0.0-0.045)
[2019-08-27] MEDS: VANCOMYCIN 2 GM in NA CHLORIDE 0.9% 500 ML IVPB SCH (06:47)
[2019-08-27] MEDS: ENOXAPARIN 40 MG/0.4 ML SQ SCH (09:00)
[2019-08-27] MEDS: INSULIN -REGULAR HUMAN 50 UNIT/0.5 ML ML SQ SCH ×4 (09:12→21:35)
[2019-08-27] MEDS ORDERED: NA CHLORIDE 0.9% 1,000 ML ONE (11:35)
--- NOTE | 2019-08-27 11:46 | RAD REPORT ---
EXAM DESCRIPTION: NM - Bone Imaging Three Phase - 08/27/2019 11:30 am CLINICAL HISTORY: Right foot pain and swelling COMPARISON: CT August 25, 2019 TECHNIQUE: 26.3 Tc MDPwas administered intravenously. Three-phase bone scan of the feet obtained FINDINGS: Perfusion and blood pool images demonstrate marked increased radiotracer uptake to the ri ght foot. Delayed images demonstrate persistence of a marked increased radiotracer uptake throughout midfoot. IMPRESSION: Marked increased radiotracer uptake on perfusion and blood pool images to the right foot compatible with cellulitis Marked increased radiotracer uptake on delayed images within the right midfoot. This can be seen with a neuropathic joint. A superimposed osteomyelitis would be difficult to detect in this region but is probably not present given the CT findings.
[2019-08-27] MEDS ORDERED: MIDAZOLAM HCL 2 MG/2 ML INJ ONE (11:50)
[2019-08-27] MEDS ORDERED: propofoL 200 MG/20 ML VIAL IV ONE (11:50)
[2019-08-27] MEDS ORDERED: FENTANYL CITR 100 MCG/2 ML ONE (11:50)
[2019-08-27] MEDS ORDERED: LIDOCAINE 1% MPF 5 ML VIAL ONE (11:50)
[2019-08-27] MEDS ORDERED: BUPIVACAINE 0.25% PF 30 ML VIAL ONE (11:54)
[2019-08-27] MEDS ORDERED: COLLAGENASE 30 GM OINTMENT TOP ONE (12:29)
[2019-08-27] MEDS ORDERED: KETOROLAC 30 MG/ML INJ ONE (12:32)
[2019-08-27] MEDS ORDERED: MORPHINE 10 MG/ML VIAL ONE (12:32)
--- NOTE | 2019-08-27 12:47 | P.OP ---
Preoperative diagnosis: RIGHT foot necrotizing soft tissue infection Postoperative diagnosis: RIGHT foot necrotizing soft tissue infection Primary procedure: Excisional Debridement of RIGHT lateral and plantar foot Anesthesia: GETA Estimated blood loss: <20cc Specimen: Cultures x 4, tissue Findings: extended into muscle up to bone Complications: None Transferred to: Recovery Room Condition: Good
[2019-08-27] MEDS ORDERED: ONDANSETRON 4 MG/2 ML VIAL ONE (13:22)
--- NOTE | 2019-08-27 13:51 | P.PN ---
Subjective Date of Service: 08/27/19 Chief Complaint: seen , adm for right foot cellulitis seen , feel fine -cash for OR fro debridement of right foot abscess today Review of Systems 10-point ROS is otherwise unremarkable Physical Examination - Vital Signs Temperature: 99.7 F Blood Pressure: 102/57 Pulse: 90 Respirations: 17 Pulse Ox (%): 97 - Physical Exam General: In no apparent distress, Oriented x3, Obese HEENT: Atraumatic, Normocephalic Neck: JVD not distended, No Thyromegaly Respiratory: Clear to auscultation bilaterally, Normal air movement Cardiovascular: Regular rate/rhythm, Normal S1 S2, Edema Gastrointestinal: Normal bowel sounds, Soft and benign Musculoskeletal: Swelling (rigt foot ), Erythema, Tenderness Neurological: Normal gait, Normal speech - Studies Medications List Reviewed: Yes Assessment & Plan - Problems (Diagnosis) (1) Navicular fracture, foot Current Visit: Yes Status: Acute (2) Cellulitis and abscess of foot Current Visit: Yes Status: Acute (3) Diabetes Current Visit: Yes Status: Acute (4) HTN (hypertension) Current Visit: Yes Status: Acute (5) Osteomyelitis Current Visit: No Status: Acute Physician Review: Patient Assessed, Agree with Above Assessment and Plan Physician Review Additional Text: # Right Foot cellulitis - s/p debridement with noted necrotic extension to muscle and bone today - s/p culture taken , follow cx result - c/w abx - may need wound care eval and possible wound vac -c/w abx with vanco and clindamycin -CT did not show osteo , follow bone scan but given operative findings , may have clinical osteomyelitis -will plan for Picc line for prolonged abx # DM -c/w regime , controlled # HTN -controlled # Right foot navicular fracture- may need ortho evel Dispo - for another 2-3 days
[2019-08-27] MEDS: INSULIN GLARGINE 100 UNITS/ML SQ SCH (17:05)
[2019-08-27] MEDS: VANCOMYCIN 2.25 GM in NA CHLORIDE 0.9% 500 ML IVPB SCH (17:12)
--- NOTE | 2019-08-27 23:48 | OP ---
Date of Procedure: 08/27/2019 Surgeon: Franklyn Hays MD, Brief History Of Present Illness: Patient is a 49-year-old male who comes with a complicated right l ower extremity wound, which is draining pus on the plantar aspect as well as the medial aspect of the same said foot with significant blister as well as purulent drainage. As such, he was deemed approp riate for operative intervention. Preoperative Diagnosis: Right foot necrotizing soft tissue infection. Postoperative Diagnosis: Right foot necrotizing soft tissue infection. Procedure Performed: Excisional debridement of the right lateral foot, on the lateral and plantar as pects area, generally approximately 22 cm x 18 cm size. Anesthesia: General endotracheal. Estimated Blood Loss: Less than 20 cc. Specimen: Cultures x4 and tissue. Findings: The necrotizing soft tissue infection extended into the muscle and abutting the bone inclu ding tendinous portions. There was some tracking along the plantar aspect of the foot as well. Complications: None. Disposition: Transferred to recovery room in good condition. Procedure In Detail: After informed consent was obtained, the patient was brought to the operating r oom and prepped and draped in usual sterile fashion. After adequate anesthesia was achieved in the a yadi of the plantar aspect of the foot where a purulent draining sinus was appreciated, this was opene d up using a scalpel blade down to subcutaneous tissues, immediately encountered was pus. This was c ultured at this time for both aerobic and anaerobic speciation. I then continued laterally to where there was a large fluid-filled blister on the medial aspect of the foot near the ankle joint. I exte nded this incision to this point and I appreciated that there was again purulent fluid appreciated. This was cultured once again and I circumferentially dissected down through subcutaneous tissues to e xpose pus and necrotizing soft tissue infection. I made progressive larger circles to ensure that I was beyond the necrotizing soft tissue infection and extended down into the muscle tissues and abutte d the bone in some areas but not significantly involving this area of bone, but did abut the muscle. I was able to remove all this necrotic tissue using electrocautery, sharp and blunt dissection, and I cleared out the area. Hemostasis was easily achieved with electrocautery. The defect was large as described above, but all necrotic and nonviable/infected tissue was removed. I then used a pulse la vage device to cleanse out the wound once again at the end and hemostasis was easily achieved with el ectrocautery. I then packed the wound with Santyl and damp to dry Kerlix, gauze, and a sterile dress ing was placed over top. The patient tolerated the procedure well without evidence of complication a nd transferred to PACU in good condition. All counts were correct at the end of the case. JOE/RUTH ANN Voice ID: [id number] Report ID: [id number]
[2019-08-28 05:47] LABS: Basophils % 0.5 % (0-1.3); Hematocrit 39.1 % (39.6-49.0); Lymphocytes % 12.2 % (15.3-44.8); MPV 7.8 fL (7.6-11.3); RBC Red Blood Cell Count 4.19 M/uL (4.33-5.43)
[2019-08-28] MEDS: VANCOMYCIN 2.25 GM in NA CHLORIDE 0.9% 500 ML IVPB SCH ×2 (05:58→17:42)
[2019-08-28 06:04] LABS: ALT/SGPT 22 U/L (12-78); AST/SGOT 18 U/L (15-37); Albumin 2.2 g/dL (3.4-5.0); Alkaline Phosphatase 104 U/L (45-117); BUN Blood Urea Nitrogen 15 mg/dL (7-18); Bicarbonate 26 mmol/L (21-32); Bilirubin Total 0.5 mg/dL (0.2-1.0); Glucose Level 181 mg/dL (74-106); Potassium 3.6 mmol/L (3.5-5.1); Protein, Total 6.2 g/dL (6.4-8.2); Sodium Level 136 mmol/L (136-145); Troponin I < 0.02 ng/mL (0.0-0.045)
[2019-08-28] MEDS: ENOXAPARIN 40 MG/0.4 ML SQ SCH (10:20)
[2019-08-28] MEDS: INSULIN -REGULAR HUMAN 50 UNIT/0.5 ML ML SQ SCH ×4 (10:20→21:29)
--- NOTE | 2019-08-28 11:58 | P.PN ---
Subjective Date of Service: 08/28/19 Chief Complaint: seen , adm for right foot cellulitis Subjective: No new changes, No C/O voiced, Doing well seen , pain improved Review of Systems 10-point ROS is otherwise unremarkable Physical Examination - Vital Signs Temperature: 98.3 F Blood Pressure: 116/67 Pulse: 86 Respirations: 18 Pulse Ox (%): 99 - Physical Exam General: Alert, In no apparent distress, Obese HEENT: Atraumatic, Normocephalic, PERRLA Neck: Supple, 2+ carotid pulse no bruit, JVD not distended Respiratory: Clear to auscultation bilaterally, Normal air movement Cardiovascular: No edema, Regular rate/rhythm, Normal S1 S2 Gastrointestinal: Normal bowel sounds, Soft and benign Musculoskeletal: No contractures, No erythema, Swelling (dsg over left foot ) Neurological: Normal gait, Normal speech, Normal strength at 5/5 x4 extr - Studies Laboratory Last Values WBC 7.9 K/uL (4.3-10.9) D 08/28/19 05:09 RBC 4.19 M/uL (4.33-5.43) L 08/28/19 05:09 Hgb 13.5 g/dL (13.6-17.9) L 08/28/19 05:09 Hct 39.1 % (39.6-49.0) L 08/28/19 05:09 MCV 93.4 fL (80-100) 08/28/19 05:09 MCH 32.3 pg (27.0-35.0) 08/28/19 05:09 MCHC 34.6 g/dL (32.0-36.0) 08/28/19 05:09 RDW 13.4 % (12.1-15.2) 08/28/19 05:09 Plt Count 171 K/uL (152-406) 08/28/19 05:09 MPV 7.8 fL (7.6-11.3) 08/28/19 05:09 Neutrophils % 76.9 % (41.7-73.7) H 08/28/19 05:09 Lymphocytes % 12.2 % (15.3-44.8) L 08/28/19 05:09 Monocytes % 9.8 % (3.3-12.3) 08/28/19 05:09 Eosinophils % 0.6 % (0-4.4) 08/28/19 05:09 Basophils % 0.5 % (0-1.3) 08/28/19 05:09 Absolute Neutrophils 6.1 K/uL (1.8-8.0) 08/28/19 05:09 Absolute Lymphocytes 1.0 K/uL (0.7-4.9) 08/28/19 05:09 Absolute Monocytes 0.8 K/uL (0.1-1.3) 08/28/19 05:09 Absolute Eosinophils 0.0 K/uL (0-0.5) 08/28/19 05:09 Absolute Basophils 0.0 K/uL (0-0.5) 08/28/19 05:09 Morphology Comment Not seen (NOT SEEN) 08/25/19 12:38 ESR Westergren 58 mm/HR (0-20) H 08/26/19 11:10 PT 14.5 SECONDS (9.5-12.5) H 08/25/19 12:38 INR 1.24 08/25/19 12:38 APTT 29.6 SECONDS (24.3-36.9) 08/25/19 12:38 Sodium 136 mmol/L (136-145) 08/28/19 05:09 Potassium 3.6 mmol/L (3.5-5.1) 08/28/19 05:09 Chloride 101 mmol/L (98-107) 08/28/19 05:09 Carbon Dioxide 26 mmol/L (21-32) 08/28/19 05:09 BUN 15 mg/dL (7-18) 08/28/19 05:09 Creatinine 0.84 mg/dL (0.55-1.3) 08/28/19 05:09 Estimated GFR > 90 mL/min (=/>90) 08/28/19 05:09 Glucose 181 mg/dL (74-106) H 08/28/19 05:09 POC Glucose 188 mg/dl (65-120) H 08/28/19 07:53 Lactic Acid 2.4 mmol/L (0.4-2.0) H 08/25/19 15:50 Calcium 8.5 mg/dL (8.5-10.1) 08/28/19 05:09 Total Bilirubin 0.5 mg/dL (0.2-1.0) 08/28/19 05:09 Direct Bilirubin 0.5 mg/dL (0-0.2) H 08/25/19 12:38 AST 18 U/L (15-37) 08/28/19 05:09 ALT 22 U/L (12-78) 08/28/19 05:09 Alkaline Phosphatase 104 U/L (45-117) 08/28/19 05:09 Creatine Kinase 55 U/L (39-308) 08/25/19 12:38 CK-MB (CK-2) < 1.0 ng/mL (0.3-3.6) 08/25/19 12:38 Rapid Troponin I < 0.02 ng/mL (0.0-0.045) 08/25/19 12:38 Troponin I < 0.02 ng/mL (0.0-0.045) 08/28/19 05:09 Serum Total Protein 6.2 g/dL (6.4-8.2) L 08/28/19 05:09 Albumin 2.2 g/dL (3.4-5.0) L 08/28/19 05:09 Globulin 4.0 g/dL (2.3-3.5) H 08/28/19 05:09 Albumin/Globulin Ratio 0.6 (1.1-1.8) L 08/28/19 05:09 Lipase 119 U/L (73-393) 08/25/19 12:38 Procalcitonin 0.61 ng/mL (<0.50) H 08/25/19 12:38 Urine RBC Cancelled 08/25/19 12:29 Urine WBC Cancelled 08/25/19 12:29 Ur Squamous Epith Cells Cancelled 08/25/19 12:29 Ur Urothelial Cells Cancelled 08/25/19 12:29 Calcium Oxalate Crystal Cancelled 08/25/19 12:29 Uric Acid Crystals Cancelled 08/25/19 12:29 Triple Phos Crystals Cancelled 08/25/19 12:29 Other Crystals Cancelled 08/25/19 12:29 Amorphous Sediment Cancelled 08/25/19 12:29 Glitter Cells Cancelled 08/25/19 12:29 Urine Bacteria Cancelled 08/25/19 12:29 Hyaline Casts Cancelled 08/25/19 12:29 Fine Granular Casts Cancelled 08/25/19 12:29 Coarse Granular Casts Cancelled 08/25/19 12:29 Waxy Casts Cancelled 08/25/19 12:29 RBC Casts Cancelled 08/25/19 12:29 WBC Casts Cancelled 08/25/19 12:29 Urine Mucus Cancelled 08/25/19 12:29 Urine Other Cancelled 08/25/19 12:29 Urine Trichomonas Cancelled 08/25/19 12:29 Urine Yeast Cancelled 08/25/19 12:29 Ur Yeast w Hyphae Cancelled 08/25/19 12:29 Urine Yeast (Budding) Cancelled 08/25/19 12:29 Urine Sperm Cancelled 08/25/19 12:29 Urine Culture Reflexed Cancelled 08/25/19 12:29 Urine Total Volume Cancelled 08/25/19 12:29 Vancomycin Trough 5.6 ug/mL (5.0-20.0) 08/27/19 05:06 Medications List Reviewed: Yes Assessment & Plan - Problems (Diagnosis) (1) Navicular fracture, foot Current Visit: Yes Status: Acute (2) Cellulitis and abscess of foot Current Visit: Yes Status: Acute (3) Diabetes Current Visit: Yes Status: Acute (4) HTN (hypertension) Current Visit: Yes Status: Acute (5) Osteomyelitis Current Visit: No Status: Acute Physician Review: Patient Assessed, Agree with Above Assessment and Plan Physician Review Additional Text: # Right Foot cellulitis - with MSSA bactremia -tissue wound cx also growing staph -c/w abx with Rocephin - will d/w with surgery regarding plan for worund care at LTC vs home with services -still clinicla osteomyelitis based on bone scan and op report -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
[2019-08-28] MEDS: INSULIN GLARGINE 100 UNITS/ML SQ SCH (17:42)
[2019-08-28] MEDS: ACETAMINOPHEN 325 MG TABLET PO PRN (21:27)
[2019-08-29] MEDS: VANCOMYCIN 2.25 GM in NA CHLORIDE 0.9% 500 ML IVPB SCH (05:59)
[2019-08-29 06:06] LABS: Absolute Lymphocytes (CBC) 1.2 K/uL (0.7-4.9); Basophils % 0.8 % (0-1.3); Hematocrit 37.6 % (39.6-49.0); Lymphocytes % 21.5 % (15.3-44.8); MPV 8.1 fL (7.6-11.3); RBC Red Blood Cell Count 4.12 M/uL (4.33-5.43)
[2019-08-29 06:27] LABS: ALT/SGPT 23 U/L (12-78); AST/SGOT 27 U/L (15-37); Albumin 2.2 g/dL (3.4-5.0); Alkaline Phosphatase 107 U/L (45-117); BUN Blood Urea Nitrogen 12 mg/dL (7-18); Bicarbonate 28 mmol/L (21-32); Bilirubin Total 0.6 mg/dL (0.2-1.0); Glucose Level 164 mg/dL (74-106); Potassium 3.4 mmol/L (3.5-5.1); Protein, Total 6.2 g/dL (6.4-8.2); Sodium Level 138 mmol/L (136-145)
[2019-08-29] MEDS: INSULIN -REGULAR HUMAN 50 UNIT/0.5 ML ML SQ SCH ×4 (08:16→21:41)
[2019-08-29] MEDS: ENOXAPARIN 40 MG/0.4 ML SQ SCH (08:17)
[2019-08-29] MEDS: GABAPENTIN 100 MG CAP PO SCH ×2 (12:59→21:41)
[2019-08-29] MEDS: CEFAZOLIN/SWI 2gm 2 GM/20 ML SYR IV SCH ×2 (12:59→17:32)
--- NOTE | 2019-08-29 13:46 | ECHO ---
HEIGHT: 6 ft 0 in WEIGHT: 248 lb 14.4 oz DATE OF STUDY: 08/29/[address]: Paul Gutierrez MD 2-DIMENSIONAL: YES M.MODE: YES DOPPLER: YES COLOR FLOW: YES TDS: NO PORTABLE: NO DEFINITY: NO BUBBLE STUDY: NO DIAGNOSIS: BACTEREMIA CARDIAC HISTORY: CATHERIZATION: NO SURGERY: NO PROSTHETIC VALVE: NO PACEMAKER: NO MEASUREMENTS (cm) DIASTOLIC (NORMALS) SYSTOLIC (NORMALS) IVSd 1.1 (0.6-1.2) LA Diam 3.9 (1.9-4.0) LVEF 63% LVIDd 3.8 (3.5-5.7) LVIDs 2.5 (2.0-3.5) %FS 33% LVPWd 1.1 (0.6-1.2) Ao Diam 2.8 (2.0-3.7) 2 DIMENSIONAL ASSESSMENT: RIGHT ATRIUM: NORMAL LEFT ATRIUM: NORMAL RIGHT VENTRICLE: NORMAL LEFT VENTRICLE: NORMAL TRICUSPID VALVE: NORMAL MITRAL VALVE: NORMAL PULMONIC VALVE: NORMAL AORTIC VALVE: NORMAL PERICARDIAL EFFUSION: NONE AORTIC ROOT: NORMAL LEFT VENTRICULAR WALL MOTION: NORMAL DOPPLER/COLOR FLOW: MILD MITRAL AND TRICUSPID REGURGITATION. MILD PULMONARY HYPERTENSION. ESTIMATED RIGHT VENTRICULAR SYSTOLIC PRESSURE 40 mmHg. COMMENTS: NORMAL 2D ECHOCARDIOGRAM. MILD MITRAL AND TRICUSPID REGURGITATION. MILD PULMONARY HYPERTENSION. TECHNOLOGIST: Ruthy GONZALEZ
--- NOTE | 2019-08-29 14:23 | P.PN ---
Subjective Date of Service: 08/29/19 Chief Complaint: seen , adm for right foot cellulitis Patient seen and examined at bedside with RN. Chart reviewed. Case discussed with general surgery. Overnight patient had no complaints to offer. Denies having any nausea vomiting abdominal pain or any other associated symptoms. Review of Systems 10-point ROS is otherwise unremarkable Physical Examination - Vital Signs Temperature: 98.3 F Blood Pressure: 124/64 Pulse: 75 Respirations: 18 Pulse Ox (%): 95 - Physical Exam General: Alert, In no apparent distress HEENT: Atraumatic, PERRLA, EOMI Neck: Supple, JVD not distended Respiratory: Clear to auscultation bilaterally, Normal air movement Cardiovascular: Regular rate/rhythm, Normal S1 S2 Gastrointestinal: Normal bowel sounds, No tenderness Musculoskeletal: Tenderness Integumentary: Tenderness/swelling Neurological: Normal speech, Normal tone, Normal affect Lymphatics: No axilla or inguinal lymphadenopathy - Studies Medications List Reviewed: Yes Assessment And Plan Discharge Plan: Home Plan to discharge in: Greater than 2 days - Code Status/Comfort Care Code Status Assessed: Yes Physician Review: Patient Assessed, Agree with Above Assessment and Plan Physician Review Additional Text: Assessment/Plan 1. Sepsis 2.2 to Right Foot cellulitis and MSSA bactremia -Wound and Blood + for MSSA -On Ancef, Will continue it for now -Wound culture consulted and Reccs noted. -s/p debridement with noted necrotic extension to muscle and bone with gen surgery -CT neagtive for osteomylities -Given the culture result patient will need to be on Ancef for total of 2 weeks. -will get PICC line placed today 2. DM -c/w regime , controlled on Accu-Cheks and insulin sliding scale 3. HTN -controlled home medication 4. Right foot navicular fracture- outpatient followup with Orthopedics once infectious disease resolved Disposition: Will get a PICC line placed and set up home antibiotics Critical Care: No
[2019-08-29] MEDS: INSULIN GLARGINE 100 UNITS/ML SQ SCH (17:32)
[2019-08-29] MEDS ORDERED: VANCOMYCIN 2.5 GM in NA CHLORIDE 0.9% 500 ML IVPB SCH (18:00)
[2019-08-29] MEDS: ACETAMINOPHEN 325 MG TABLET PO PRN (22:52)
[2019-08-30] MEDS: CEFAZOLIN/SWI 2gm 2 GM/20 ML SYR IV SCH ×3 (00:29→16:06)
[2019-08-30 05:19] LABS: Absolute Lymphocytes (CBC) 1.7 K/uL (0.7-4.9); Basophils % 1.2 % (0-1.3); Hematocrit 39.1 % (39.6-49.0); Lymphocytes % 31.2 % (15.3-44.8); MPV 7.9 fL (7.6-11.3); RBC Red Blood Cell Count 4.28 M/uL (4.33-5.43)
[2019-08-30 05:35] LABS: ALT/SGPT 31 U/L (12-78); AST/SGOT 39 U/L (15-37); Albumin 2.1 g/dL (3.4-5.0); Alkaline Phosphatase 130 U/L (45-117); BUN Blood Urea Nitrogen 11 mg/dL (7-18); Bicarbonate 28 mmol/L (21-32); Bilirubin Total 0.4 mg/dL (0.2-1.0); Glucose Level 215 mg/dL (74-106); Potassium 3.2 mmol/L (3.5-5.1); Protein, Total 6.3 g/dL (6.4-8.2); Sodium Level 138 mmol/L (136-145)
[2019-08-30] MEDS: INSULIN -REGULAR HUMAN 50 UNIT/0.5 ML ML SQ SCH ×2 (08:41→12:02)
[2019-08-30] MEDS: ENOXAPARIN 40 MG/0.4 ML SQ SCH (08:42)
[2019-08-30] MEDS: GABAPENTIN 100 MG CAP PO SCH ×2 (08:42→14:44)
[2019-08-30] MEDS ORDERED: AMLODIPINE 10 MG TAB PO SCH (09:00)
[2019-08-30] MEDS ORDERED: hydroCHLOROthiazide 25 MG TAB PO SCH (09:00)
[2019-08-30 09:02] VITALS: O2SAT 98
--- NOTE | 2019-08-30 11:16 | RAD REPORT ---
EXAM DESCRIPTION: Chest Single View CLINICAL HISTORY: 49 years Male, PICC Placement COMPARISON: None. FINDINGS: The heart and mediastinum are within normal limits. A right-sided PICC line is identified with distal tip in the superior vena cava. The lung arnold are clear of active infiltrates. The pulmonary vascularity is unremarkable. No active pleural disease is present. IMPRESSION: 1. Successful placement of right-sided PICC line. Electronically signed by: Juan Anderson MD 08/29/2019 11:00 PM HUMAN RELATIONS TEACHER Due to temporary technical issues with the PACS/Fluency reporting system, reports are being signed by the in house radiologist as a courtesy to ensure prompt reporting. The interpreting radiologist is f ully responsible for the content of the report.
--- NOTE | 2019-08-30 11:40 | P.DS ---
Admission Date: 08/25/19 Discharge Date: 08/30/19 Primary Care Provider: Dr. Dumont Disposition: DC HOME/HOME HEALTH CARE Discharge Condition: GOOD Reason for Admission: seen , adm for right foot cellulitis Consultations: Surgery-Dr. Hays Internal Medicine-Dr. Patino Procedures: CT: FINDINGS: Diffuse edema is present within the medial subcutaneous and plantar subcutaneous tissues Narrowing of the MTP joints with bony fragmentation and subchondral sclerosis. No additional bony destructive lesion is noted. Chronic lateral subluxation of the base of the second metatarsal. Amputation second proximal phalanx. Linear lucency is present within the anterior aspect of navicular consistent with a fracture IMPRESSION: Diffuse edema within the medial subcutaneous and plantar subcutaneous tissues likely a cellulitis Marked degenerative changes involving the MTP joints indicates a neuropathic joint Small nondisplaced fracture of the navicular bone No radiographic evidence of osteomyelitis Xray: FINDINGS: No fracture or dislocation is seen Pes planus deformity. Large calcaneal spur. 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 Amputation second phalanx Degenerative changes involve the MTP joints No bony destructive lesions seen Bone Scan: FINDINGS: Perfusion and blood pool images demonstrate marked increased radiotracer uptake to the right foot. Delayed images demonstrate persistence of a marked increased radiotracer uptake throughout midfoot. IMPRESSION: Marked increased radiotracer uptake on perfusion and blood pool images to the right foot compatible with cellulitis Marked increased radiotracer uptake on delayed images within the right midfoot. This can be seen with a neuropathic joint. A superimposed osteomyelitis would be difficult to detect in this region but is probably not present given the CT findings. ECHO: EF 55% LEFT VENTRICULAR WALL MOTION: NORMAL DOPPLER/COLOR FLOW: MILD MITRAL AND TRICUSPID REGURGITATION. MILD PULMONARY HYPERTENSION. ESTIMATED RIGHT VENTRICULAR SYSTOLIC PRESSURE 40 mmHg. COMMENTS: NORMAL 2D ECHOCARDIOGRAM. MILD MITRAL AND TRICUSPID REGURGITATION. MILD PULMONARY HYPERTENSION Surgery: Date of procedure: 08/27/2019 Surgeon: Dr. Hays Preop diagnosis: Right foot necrotizing soft tissue infection Postop diagnosis: Same Primary procedure: Excisional debridement of right lateral and plantar foot Medical Problem List: Right foot necrotizing soft tissue infection status post excisional debridement complicated with wound culture/bacteremia for Staph. aureus Hypertension Diabetes mellitus type 2 insulin dependent Diabetic neuropathy Chronic lymphedema Brief History of Present Illness: 49-year-old male with history of diabetes, hypertension and history of right 2nd digit amputation 2 years ago. Patient presented with fever, swelling to the lower extremities. Patient has an infection to the right lower extremity. Patient was admitted for further evaluation. Hospital Course: Patient admitted for right foot necrotizing soft tissue infection. Patient seen and evaluated by surgery. Surgical intervention was required. Excisional debridement noted. No osteomyelitis identified. Bone culture and blood cultures were positive for Staph aureus. This required long-term IV antibiotic therapy. At discharge home health and home antibiotics has been arranged. Patient will continue with Ancef 2 g IV 3 times a day for 14 days. Completion of antibiotics will be from the date of negative blood culture likely today. This will need to be followed up by a physician. I did consult Internal Medicine-Dr. Patino who will see the patient and follow up on the patient as an outpatient. Patient will also follow up with surgery to follow ups hospitalization and continue wound care. Patient will continue with current wound care. Patient with hypertension. Discharge will continue with Norvasc 10 mg daily. Patient with underlying diabetes mellitus type 2 insulin dependent. This has remained stable. Discharge patient will continue with his regular regimen of Lantus daily and metformin. Recommend blood sugars less than 140 fasting and less than 200 with meals. Further monitoring can be done by PCP. Patient with diabetic neuropathy. Patient may continue with gabapentin 100 mg 3 times a day. Vital Signs/Physical Exam: Temp Pulse Resp BP Pulse Ox 97.4 F 62 18 144/77 H 98 08/30/19 08:00 08/30/19 08:44 08/30/19 08:00 08/30/19 08:44 08/30/19 08:00 General: Alert, In no apparent distress, Oriented x3, Cooperative HEENT: Atraumatic Neck: Supple Respiratory: Clear to auscultation bilaterally, Normal air movement Cardiovascular: Normal pulses, Regular rate/rhythm Gastrointestinal: Normal bowel sounds, Soft and benign Neurological: Normal speech, Normal strength at 5/5 x4 extr, Normal tone Laboratory Data at Discharge: WBC 5.5 K/uL (4.3-10.9) 08/30/19 04:55 Hgb 13.8 g/dL (13.6-17.9) 08/30/19 04:55 Hct 39.1 % (39.6-49.0) L 08/30/19 04:55 Plt Count 186 K/uL (152-406) 08/30/19 04:55 PT 14.5 SECONDS (9.5-12.5) H 08/25/19 12:38 INR 1.24 08/25/19 12:38 APTT 29.6 SECONDS (24.3-36.9) 08/25/19 12:38 Sodium 138 mmol/L (136-145) 08/30/19 04:55 Potassium 3.2 mmol/L (3.5-5.1) L 08/30/19 04:55 BUN 11 mg/dL (7-18) 08/30/19 04:55 Creatinine 0.67 mg/dL (0.55-1.3) 08/30/19 04:55 Glucose 215 mg/dL (74-106) H 08/30/19 04:55 Total Bilirubin 0.4 mg/dL (0.2-1.0) 08/30/19 04:55 AST 39 U/L (15-37) H 08/30/19 04:55 ALT 31 U/L (12-78) 08/30/19 04:55 Alkaline Phosphatase 130 U/L (45-117) H 08/30/19 04:55 Troponin I < 0.02 ng/mL (0.0-0.045) 08/28/19 05:09 Lipase 119 U/L (73-393) 08/25/19 12:38 Home Medications: Amlodipine Besylate 10 mg PO DAILY 08/26/19 Gabapentin 100 mg PO TID 08/26/19 Insulin Glargine Human [Lantus*] 30 units SQ DAILY 08/26/19 Metformin HCl [Glucophage] 500 mg PO BID 08/26/19 hydroCHLOROthiazide [Hydrodiuril] 25 mg PO DAILY 08/26/19 Patient Discharge Instructions: 1. Patient will follow up with Dr. Patino. 2. Patient admitted for right foot necrotizing soft tissue infection. Patient seen and evaluated by surgery. Surgical intervention was required. Excisional debridement noted. No osteomyelitis identified. Bone culture and blood cultures were positive for Staph aureus. This required long-term IV antibiotic therapy. At discharge home health and home antibiotics has been arranged. Patient will continue with Ancef 2 g IV 3 times a day for 14 days. Completion of antibiotics will be from the date of negative blood culture likely today. This will need to be followed up by a physician. I did consult Internal Medicine-Dr. Patino who will see the patient and follow up on the patient as an outpatient. Patient will also follow up with surgery to follow ups hospitalization and continue wound care. Patient will continue with current wound care. This will include Santyl with 0.25% dakins solution damp to dry daily. 3. Patient with hypertension. Discharge will continue with Norvasc 10 mg daily. 4. Patient with underlying diabetes mellitus type 2 insulin dependent. This has remained stable. Discharge patient will continue with his regular regimen of Lantus daily and metformin. Recommend blood sugars less than 140 fasting and less than 200 with meals. Further monitoring can be done by PCP. 5. Patient with diabetic neuropathy. Patient may continue with gabapentin 100 mg 3 times a day. Activity: Non-weight bearing (Right foot) Followup: Franklyn Hays MD [ACTIVE - CAN ADMIT] - 1 Week Time spent managing pt's care (in minutes): 55
--- NOTE | 2019-08-30 13:52 | P.CNS ---
Date of Consult: 08/30/19 Patient is a pleasant 49 year old patient with a 5 year history of diabetes. Has not been going regularly to his pcp, or been regular with his medications. He came in to the hospital on 08/25. Was found to have a diabetic wound of his right foot. Required surgical debridement of the foot with Dr. Hays on 08/27. He is currently doing well. The patient last a1c was 8.0. However he has not had a recent one. He is slated to go home today. He needs a doctor to sign for an out patient IV antibiotics. Picc line is in place. He will be on Acef TID. He grew St Aureus out of his cultures. Which is multi drug sensitive. The patient seems pleasant and is willing to work with us [facility] diabetes PSG. Foot surgery. Oh MENDESDA. Meds. Please see nursing orders. 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 Will follow his antibiotics. Have him contact my office to establish care. Will work on the diabetes control. I have started discussing with him today Will have him follow up with us. Refer him to the [facility] diabetic education. Have spent a total of 25 min in the consult. Thank you for allowing me to take part in his care.
[2019-08-30 15:00] VITALS: BP 129/71; TEMP 97.7
== END 2019-08-30 17:27 | disposition home health service (06) | DRG 581 ==
LOC: ER 11:57 → ERHOLD 15:11 → 2ND 16:20
PROVIDERS: ADMIT Internal Medicine; ATTEND Internal Medicine
PROC: 0KBV0ZZ Excision of Right Foot Muscle, Open Approach (ICD-10-PCS; 2019-08-27)
PROC: 02HV33Z Insertion of Infusion Device into Superior Vena Cava, Percutaneous Approach (ICD-10-PCS; principal; 2019-08-29)
DX: L03.115 Cellulitis of right lower limb (principal); B95.61 Methicillin susceptible Staphylococcus aureus infection as the cause of diseases classified elsewhere; I10 Essential (primary) hypertension; E11.40 Type 2 diabetes mellitus with diabetic neuropathy, unspecified; I89.0 Lymphedema, not elsewhere classified; S92.251A Displaced fracture of navicular [scaphoid] of right foot, initial encounter for closed fracture; Z23 Encounter for immunization
CPT/HCPCS: 36415; 71045; 73700; 76377; 78315; 80048; 80053; 80076; 80202; 82550; 82553; 82947; 83605; 83690; 84145; 84484; 85025; 85610; 85652; 85730; 87040; 87070; 87075; 87077; 87186; 87205; 88304; 90471; 90670; 93005; 93306; 93971; 96361; 96374; 96375; 99285; A9503; J0690; J0692; J1650; J1815; J2250; J2270; J2405; J2704; J3010; J3370; J3590; J7030; J7040; Q2035

== ENCOUNTER 2020-04-29 16:29 | Inpatient (IN) | payer BC ==
[2020-04-29] MEDS ORDERED: HYDRALAZINE HCL 20 MG/ML VIAL IV PRN (16:52)
[2020-04-29] MEDS ORDERED: D50W 25 GM/50 ML SYRINGE/VIAL IV PRN (16:53)
[2020-04-29] MEDS ORDERED: GLUCAGON 1 MG/VIAL IM PRN (16:53)
[2020-04-29] MEDS ORDERED: ENOXAPARIN 40 MG/0.4 ML SQ SCH (17:00)
--- NOTE | 2020-04-29 17:02 | P.HP ---
Certification for Inpatient Patient admitted to: Inpatient With expected LOS: >2 Midnights Patient will require the following post-hospital care: Home Health Services Practitioner: I am a practitioner with admitting privileges, knowledge of patient current condition, hospital course, and medical plan of care. Services: Services provided to patient in accordance with Admission requirements found in Title 42 Section 412.3 of the Code of Federal Regulations Patient History Date of Service: 04/29/20 Primary Care Provider: Sukumar Reason for admission: infected diabetic foot. History of Present Illness: Patient of mine. Have been taking care of his foot ulcer. He has a chronic diabetic ulcer on the plantar surface of his right foot. Which I have been caring for in the wound center. He was having fevers yesterday per his . When she changed the dressing his foot was hot and there was discharge. She brought him to the office. The patient appeared toxic. In the office his vitals hr 150 weight 266 spO2 96% bp 187/67 temp 102.2 cbg was 314 The patient had a clean ulcer base with a mild odor. The foot was hot and more swollen then I remember when I last saw it. Which was 04/21 Considering all this the patient was sent to the hospital for a direct admission. Allergies No Known Allergies Allergy (Verified 08/25/19 16:47) Home medications list reviewed: Yes - Past Medical/Surgical History Diabetic: Yes -: Hypertension -: Diabetes -: Amputation of right toe 2016 - Family History Father -: Cancer - Social History Alcohol use: Yes CD- Drugs: No Caffeine use: Yes Review of Systems 10-point ROS is otherwise unremarkable (right plantar foot diabetic ulcer) General: Fever, Sweats Integumentary: Other (discharge from the diabetic wound) Physical Examination - Vital Signs Temperature: 102.2 F Blood Pressure: 189/67 Pulse: 150 Pulse Ox (%): 96 - Physical Exam General: Alert, In no apparent distress, Mild distress HEENT: Atraumatic, PERRLA, Mucous membr. moist/pink, EOMI, Sclerae nonicteric Neck: Supple, 2+ carotid pulse no bruit, No LAD, Without JVD or thyroid abnormality Respiratory: Clear to auscultation bilaterally, Normal air movement Cardiovascular: Regular rate/rhythm, Normal S1 S2 Gastrointestinal: Normal bowel sounds, No tenderness Musculoskeletal: Swelling (right foot), Warmth (of the right foot ) Integumentary: No rashes, Diabetic ulcer (slight odor) Neurological: Normal gait, Normal speech, Normal strength at 5/5 x4 extr, Normal tone, Normal affect Lymphatics: No axilla or inguinal lymphadenopathy Assessment and Plan - Problems (Diagnosis) (1) Cellulitis and abscess of foot Current Visit: No Status: Resolved Plan: will get cultures of the wound and blood cultures. Will then start the patient on vancomycin and levaquin. This will sufice till we have cultures. Will get an xray and mri of the right foot to rule out osteo. Have called. Dr. Hays. Will see the patient in the morning. Will keep him NPO after midnight in case the patient needs surgery. 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 Will hold his metformin. As he may have surgery tomorrow. Will order accucheck q6hrs for today. (3) Peripheral vascular disease due to secondary diabetes Current Visit: Yes Status: Acute Plan: diagnoised by Dr. Rocha. Will hold his elquis for now. Restart tomorrow if no surgery planned. (4) HTN (hypertension) Current Visit: No Status: Acute Plan: restart his home dosage of lisinopril. Will check his creatine and adjust his medications as warranted. Qualifiers: Hypertension type: essential hypertension Qualified Code(s): I10 - Essential (primary) hypertension - Advance Directives Does patient have a Living Will: No Does patient have a Durable POA for Healthcare: No - Code Status/Comfort Care Code Status Assessed: Yes Code Status: Full Code Physician Review: Patient Assessed, Agree with Above Assessment and Plan Critical Care: No Time Spent Managing Pts Care (In Minutes): 70
[2020-04-29 17:09] VITALS: BMI 35.6
[2020-04-29] MEDS ORDERED: VANCOMYCIN 2 GM in NA CHLORIDE 0.9% 500 ML IVPB ONE (18:00)
[2020-04-29] MEDS ORDERED: NA CHLORIDE 0.9% 500 ML IV SCH (18:00)
[2020-04-29 18:06] LABS: Protime INR 1.72
--- NOTE | 2020-04-29 18:09 | RAD REPORT ---
EXAM DESCRIPTION: RAD - Foot Right 2 View - 04/29/2020 6:02 pm CLINICAL HISTORY: foot infection Pain and swelling COMPARISON: Foot Right 3 View dated 08/25/2019; Foot Right 3 View dated 03/16/2018 FINDINGS: Charcot arthropathy changes are present involving the midfoot with midfoot collapse. Evide nce of previous second toe amputation present. Large amount of soft tissue swelling is present withou t subcutaneous gas. No radiographic finding to indicate osteomyelitis.
[2020-04-29 18:13] LABS: Absolute Lymphocytes (CBC) 0.1 K/uL (0.7-4.9); Basophils % 0.3 % (0-1.3); Hematocrit 41.4 % (39.6-49.0); Lymphocytes % 1.6 % (15.3-44.8); MPV 8.3 fL (7.6-11.3); RBC Red Blood Cell Count 4.61 M/uL (4.33-5.43)
[2020-04-29 18:15] LABS: Potassium 3.1 mmol/L (3.5-5.1)
[2020-04-29] MEDS: Levofloxacin500mg IV 500 MG/100 ML BAG IV SCH (18:18)
[2020-04-29] MEDS: NA CHLORIDE 0.9% 1,000 ML IV SCH (18:18)
[2020-04-29 18:34] LABS: Albumin 2.6 g/dL (3.4-5.0); Bilirubin Direct 0.9 mg/dL (0-0.2); Bilirubin Total 1.8 mg/dL (0.2-1.0); Protein, Total 7.2 g/dL (6.4-8.2)
[2020-04-29] MEDS ORDERED: ENOXAPARIN 40 MG/0.4 ML SQ ONE (20:48)
[2020-04-29] MEDS ORDERED: INSULIN -REGULAR HUMAN 50 UNIT/0.5 ML ML SQ SCH (21:00)
[2020-04-29 21:58] LABS: Blood Morphology Comment NOT SEEN (NOT SEEN); Platelet Estimate DECR
[2020-04-30] MEDS: INSULIN -REGULAR HUMAN 50 UNIT/0.5 ML ML IV SCH ×5 (01:13→22:31)
[2020-04-30] MEDS: ONDANSETRON 4 MG/2 ML VIAL IV PRN ×2 (01:52→16:37)
[2020-04-30] MEDS: NA CHLORIDE 0.9% 1,000 ML IV SCH ×3 (03:54→16:15)
[2020-04-30] MEDS: ACETAMINOPHEN 500 MG TAB PO PRN ×4 (03:57→20:18)
[2020-04-30] MEDS: PANTOPRAZOLE 40MG TABLET PO SCH (03:57)
[2020-04-30 04:46] LABS: Potassium 3.2 mmol/L (3.5-5.1)
[2020-04-30 05:53] LABS: Absolute Lymphocytes (CBC) 0.1 K/uL (0.7-4.9); Basophils % 0.2 % (0-1.3); Hematocrit 37.2 % (39.6-49.0); Lymphocytes % 1.5 % (15.3-44.8); MPV 8.5 fL (7.6-11.3); RBC Red Blood Cell Count 4.14 M/uL (4.33-5.43)
[2020-04-30] MEDS ORDERED: POTASSIUM CL SA 10 MEQ TAB PO ONE ×2 (08:02→20:00)
[2020-04-30] MEDS: lisinopriL 20 MG TAB PO SCH (08:04)
[2020-04-30] MEDS ORDERED: NA CHLORIDE 0.9% 500 ML IV ONE (08:15)
[2020-04-30] MEDS: VANCOMYCIN 2 GM in NA CHLORIDE 0.9% 500 ML IVPB SCH ×2 (09:33→20:21)
--- NOTE | 2020-04-30 09:57 | P.PN ---
Subjective Date of Service: 04/30/20 Primary Care Provider: Sukumar Chief Complaint: infected diabetic foot. Subjective: Improving (Patient looks much better today) Review of Systems 10-point ROS is otherwise unremarkable General: Fever Physical Examination - Vital Signs Temperature: 98 F Blood Pressure: 106/61 Pulse: 116 Respirations: 20 Pulse Ox (%): 112 - Physical Exam General: Alert, In no apparent distress HEENT: Atraumatic, PERRLA, EOMI Neck: Supple, JVD not distended Respiratory: Clear to auscultation bilaterally, Normal air movement Cardiovascular: Regular rate/rhythm, Normal S1 S2 Gastrointestinal: Normal bowel sounds, No tenderness Musculoskeletal: No tenderness Integumentary: No rashes Neurological: Normal speech, Normal tone, Normal affect Lymphatics: No axilla or inguinal lymphadenopathy - Studies Laboratory Data (last 24 hrs) 04/30/20 05:28: WBC 5.7 D, Hgb 13.2 L, Hct 37.2 L, Plt Count 96 L 04/30/20 04:21: Sodium 130 L, Potassium 3.2 L, BUN 17, Creatinine 1.04, Glucose 226 H 04/29/20 : Sodium Cancelled, Potassium Cancelled, BUN Cancelled, Creatinine Cancelled, Glucose Cancelled, Total Bilirubin Cancelled, AST Cancelled, ALT Cancelled, Alkaline Phosphatase Cancelled 04/29/20 17:25: PT 20.1 H, INR 1.72, APTT 32.7 04/29/20 17:25: WBC 8.2, Hgb 14.5, Hct 41.4, Plt Count 106 L 04/29/20 17:25: Sodium 126 L, Potassium 3.1 L, BUN 13, Creatinine 0.96, Glucose 292 H, Total Bilirubin 1.8 H, AST 20, ALT 35, Alkaline Phosphatase 98 Microbiology Data (last 24 hrs): 04/29/20 17:32 Blood - Blood Anaerobic Blood Culture - Final 04/29/20 17:31 Nasopharnyx Coronavirus COVID-19 PCR - Final Assessment & Plan - Problems (Diagnosis) (1) Cellulitis and abscess of foot Current Visit: No Status: Resolved Plan: will get cultures of the wound and blood cultures. Will then start the patient on vancomycin and levaquin. This will sufice till we have cultures. Will get an xray and mri of the right foot to rule out osteo. Have called. Dr. Hays. Will see the patient in the morning. Will keep him NPO after midnight in case the patient needs surgery. 04/30 Cultures pending. His wbc is low. No gas or abcess on xray. He has been seen by Dr. Hays. No plans for surgery. Will await the MRI. 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 Will hold his metformin. As he may have surgery tomorrow. Will order accucheck q6hrs for today. 04/30 Will restart the eliquis (3) Peripheral vascular disease due to secondary diabetes Current Visit: Yes Status: Acute Plan: diagnoised by Dr. Rocha. Will hold his elquis for now. Restart tomorrow if no surgery planned. (4) HTN (hypertension) Current Visit: No Status: Acute Plan: restart his home dosage of lisinopril. Will check his creatine and adjust his medications as warranted. Qualifiers: Hypertension type: essential hypertension Qualified Code(s): I10 - Essential (primary) hypertension Discharge Plan: Home Plan to discharge in: 48 Hours - Code Status/Comfort Care Code Status Assessed: No Physician Review: Patient Assessed, Agree with Above Assessment and Plan Critical Care: No Time Spent Managing Pts Care (In Minutes): 20
--- NOTE | 2020-04-30 10:22 | CON ---
Date of Consultation: 04/30/2020 Brief History Of Present Illness: The patient is a 49-year-old male, known to me from previous admis kirti on 08/26/2019, with past medical history of hypertension, diabetes, and right foot 2nd digit amp utation of the foot 2 years prior, complicated with lower extremity swelling. He had significant swe lling and required surgical intervention at that time with significant debridement and ongoing wound care. He had some significant improvement, but had a significant Charcot foot at that time and it go t significantly larger, but did heal quite well over the past time. He noted that there was some inc reased swelling and fever persistently. As such, he went to see his primary care doctor, Dr. Patino, who saw, evaluated the patient, and admitted him for antibiotic treatment and imaging to evaluate the foot for possible source of infection for the fever workup. The patient currently denies any pain. He has been getting wound care with Dr. Patino with significant improvement of the wound. Past Medical History: Significant for hypertension, diabetes, obesity. Past Surgical History: Amputation of the right great toe as described and debridement of the right f oot plantar aspect. Allergies: NO KNOWN DRUG ALLERGIES. Home Medications: Included Eliquis, aspirin, Farxiga, Zestril, metformin, and hydrochlorothiazide. Social History: He is a former smoker, quit approximately 5 years ago. Denies recreational drug use . Drinks alcohol on occasion. He lives with his . Family History: Significant for bladder cancer in his father. Review of Systems: Ten-point review of systems other than HPI, denies. Physical Examination: Vital Signs: At the time of my examination, his BMI is 35.7. His temperature was 98.0, his respirat ory rate 20, blood pressure was 97/50, pulse is 116. General: He is awake, alert, and oriented. PSYCHIATRIC: Appropriate. Conversive. HEENT: He is normocephalic. Sclerae anicteric. Mucous membranes are moist. Oropharynx is clear. Neck: Supple. No JVD. Chest: Normal expansion and excursion. Cardiovascular: Tachycardia, otherwise regular. Abdomen: Soft. Extremities: Focused examination of the lower extremity, he has a Charcot joint of his right foot wi th open wound on the plantar aspect. There is good granulation tissue, but some slight discoloration to a small cavitation/crater on the mid foot with some sloughing. There could be a low-grade infect ion by the appearance and some fibrinous exudate. The remainder of his examination is not remarkable . Laboratory Data: Reveals a white blood cell count of 5.7, hemoglobin 13.2, hematocrit 37.2, platelet count was 96. His neutrophils were 83 on admission. His PT was 20.1, INR 1.72, PTT 32.7. His sodi um 130, potassium 3.2, chloride 95, carbon dioxide 20, BUN 17, creatinine 1.04, glucose was 226. Lac tic acid was 1.8. His total bilirubin 1.8 on admission, direct component 0.9. He had imaging perfor med, which included a foot x-ray, officially read on 04/29 as Charcot arthropathy changes present inv olving the midfoot with midfoot collapse. Evidence of previous second toe amputation. Large amount of soft tissue swelling is present without subcutaneous gas. No radiographic evidence finding to ind icate osteomyelitis. Assessment And Plan: This is a 49-year-old male, who comes in with a recurrent chronic smoldering in fection of the right foot. 1.IV fluid. 2.Antibiotic coverage. 3.I recommend Dakin, Santyl combination with daily dressing changes, packing damp to dry of this gemma t and elevation and serial exams. The patient does not require surgical debridement at this point. However, we will re-evaluate to see if the patient requires surgical intervention. Continue medical management per Dr. Patino. Thank you for this interesting consult. JOE/RUTH ANN Voice ID: [id number] Report ID: [id number]
[2020-04-30] MEDS: COLLAGENASE 30 GM OINTMENT TOP SCH (10:23)
[2020-04-30] MEDS: SODIUM HYPOCHLORITE 0.25% 473 ML TOP SCH (10:23)
[2020-04-30] MEDS: Levofloxacin500mg IV 500 MG/100 ML BAG IV SCH (16:37)
[2020-04-30] MEDS ORDERED: ENOXAPARIN 40 MG/0.4 ML SQ SCH (17:00)
--- NOTE | 2020-04-30 18:28 | RAD REPORT ---
EXAM DESCRIPTION: MRIFoot Right Wo Cont04/30/2020 6:16 pm CLINICAL HISTORY: Right foot pain COMPARISON: April 29, 2020 x-ray TECHNIQUE: Axial, sagittal and coronal magnetic resonance imaging of the right foot was obtained. FINDINGS: Resection of the second phalanx. A 2 x 1 centimeter fluid collection lies adjacent to the second metatarsal head. The second metatarsal head has normal signal. 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 Extensive edema within the subcutaneous tissues IMPRESSION: Resection of the second phalanx. 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 A superimposed osteomyelit is this region would be difficult to detect although it does not appear to be present Extensive edema within the subcutaneous tissues probably a cellulitis
[2020-04-30] MEDS: APIXABAN 2.5 MG TABLET PO SCH (20:19)
[2020-05-01] MEDS: NA CHLORIDE 0.9% 1,000 ML IV SCH ×2 (00:35→09:47)
[2020-05-01] MEDS: ACETAMINOPHEN 500 MG TAB PO PRN ×2 (04:45→08:37)
[2020-05-01] MEDS: PANTOPRAZOLE 40MG TABLET PO SCH (05:40)
[2020-05-01 06:27] LABS: Absolute Lymphocytes (CBC) 0.5 K/uL (0.7-4.9); Basophils % 0.2 % (0-1.3); Hematocrit 34.6 % (39.6-49.0); Lymphocytes % 8.2 % (15.3-44.8); MPV 8.8 fL (7.6-11.3); RBC Red Blood Cell Count 3.88 M/uL (4.33-5.43)
[2020-05-01 06:37] LABS: BUN Blood Urea Nitrogen 13 mg/dL (7-18); Bicarbonate 21 mmol/L (21-32); Glucose Level 145 mg/dL (74-106); Potassium 3.1 mmol/L (3.5-5.1); Sodium Level 132 mmol/L (136-145)
[2020-05-01] MEDS: INSULIN -REGULAR HUMAN 50 UNIT/0.5 ML ML IV SCH ×4 (08:24→21:16)
[2020-05-01] MEDS: lisinopriL 20 MG TAB PO SCH (08:25)
[2020-05-01] MEDS: APIXABAN 2.5 MG TABLET PO SCH ×2 (08:25→21:16)
[2020-05-01] MEDS ORDERED: POTASSIUM 25 MEQ EFFERV TAB PO ONE (09:00)
[2020-05-01] MEDS: COLLAGENASE 30 GM OINTMENT TOP SCH (09:00)
[2020-05-01] MEDS: SODIUM HYPOCHLORITE 0.25% 473 ML TOP SCH (09:00)
[2020-05-01] MEDS: VANCOMYCIN 2 GM in NA CHLORIDE 0.9% 500 ML IVPB SCH ×2 (09:45→21:17)
--- NOTE | 2020-05-01 09:52 | P.PN ---
Subjective Date of Service: 05/01/20 Primary Care Provider: Sukumar Chief Complaint: infected diabetic foot. Subjective: Improving Review of Systems 10-point ROS is otherwise unremarkable General: Fever Physical Examination - Vital Signs Temperature: 99.6 F Blood Pressure: 124/58 Pulse: 113 Respirations: 16 Pulse Ox (%): 98 - Physical Exam General: Alert, In no apparent distress HEENT: Atraumatic, PERRLA, EOMI Neck: Supple, JVD not distended Respiratory: Clear to auscultation bilaterally, Normal air movement Cardiovascular: Regular rate/rhythm, Normal S1 S2 Gastrointestinal: Normal bowel sounds, No tenderness Musculoskeletal: No tenderness Integumentary: No rashes Neurological: Normal speech, Normal tone, Normal affect Lymphatics: No axilla or inguinal lymphadenopathy - Studies Laboratory Data (last 24 hrs) 05/01/20 07:49: Creatinine 0.77 05/01/20 05:58: Sodium 132 L, Potassium 3.1 L, BUN 13, Creatinine 0.75, Glucose 145 H 05/01/20 05:58: WBC 5.8, Hgb 12.4 L, Hct 34.6 L, Plt Count 101 L 04/30/20 15:26: Potassium 3.4 L Microbiology Data (last 24 hrs): 04/29/20 17:32 Wound - Foot Gram Stain - Final 04/29/20 17:32 Blood - Blood Anaerobic Blood Culture - Final 04/29/20 17:31 Nasopharnyx Coronavirus COVID-19 PCR - Final Assessment & Plan - Problems (Diagnosis) (1) Cellulitis and abscess of foot Current Visit: No Status: Resolved Plan: will get cultures of the wound and blood cultures. Will then start the patient on vancomycin and levaquin. This will sufice till we have cultures. Will get an xray and mri of the right foot to rule out osteo. Have called. Dr. Hays. Will see the patient in the morning. Will keep him NPO after midnight in case the patient needs surgery. 05/01 There is a small fluid collection on MRI. Low possibility of osteomyelitis. He did have a fever this morning. Will continue fluids. would like to get the antibiotic sensitivities before we discharge him home on the appropriate antibiotics Have called the lab. Hopefully will have them back by tomorrow. 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 Will hold his metformin. As he may have surgery tomorrow. Will order accucheck q6hrs for today. 04/30 Will restart the eliquis (3) Peripheral vascular disease due to secondary diabetes Current Visit: Yes Status: Acute Plan: diagnoised by Dr. Rocha. Will hold his elquis for now. Restart tomorrow if no surgery planned. (4) HTN (hypertension) Current Visit: No Status: Acute Plan: restart his home dosage of lisinopril. Will check his creatine and adjust his medications as warranted. Qualifiers: Hypertension type: essential hypertension Qualified Code(s): I10 - Essential (primary) hypertension Discharge Plan: Home Plan to discharge in: 24 Hours - Code Status/Comfort Care Code Status Assessed: No Physician Review: Patient Assessed, Agree with Above Assessment and Plan Critical Care: No Time Spent Managing Pts Care (In Minutes): 20
[2020-05-01] MEDS: Levofloxacin500mg IV 500 MG/100 ML BAG IV SCH (17:26)
[2020-05-02] MEDS: NA CHLORIDE 0.9% 1,000 ML IV SCH (00:48)
[2020-05-02 05:03] LABS: Absolute Lymphocytes (CBC) 0.9 K/uL (0.7-4.9); Basophils % 0.7 % (0-1.3); Hematocrit 35.3 % (39.6-49.0); Lymphocytes % 16.8 % (15.3-44.8)
[2020-05-02 05:19] LABS: BUN Blood Urea Nitrogen 11 mg/dL (7-18); Bicarbonate 25 mmol/L (21-32); Glucose Level 162 mg/dL (74-106); Sodium Level 132 mmol/L (136-145)
[2020-05-02] MEDS: PANTOPRAZOLE 40MG TABLET PO SCH (07:02)
--- NOTE | 2020-05-02 07:53 | P.DS ---
Admission Date: 04/29/20 Discharge Date: 05/02/20 Primary Care Provider: Sukumar Disposition: ROUTINE DISCHARGE Discharge Condition: GOOD Reason for Admission: infected diabetic foot. 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 Have been taking care of his foot ulcer. He has a chronic diabetic ulcer on the plantar surface of his right foot. Which I have been caring for in the wound center. He was having fevers yesterday per his . When she changed the dressing his foot was hot and there was discharge. She brought him to the office. The patient appeared toxic. In the office his vitals hr 150 weight 266 spO2 96% bp 187/67 temp 102.2 cbg was 314 The patient had a clean ulcer base with a mild odor. The foot was hot and more swollen then I remember when I last saw it. Which was 04/21 Considering all this the patient was sent to the hospital for a direct admission. Hospital Course: Patient was admitted to hospital for infected diabetic foot. The patient is doing better. He had a negative MRI. He had blood cultures which were positive for group B strep. Sensitive to pencillin and levaquin. Will send him home today on oral antibiotics. Will follow up in the wound care center on Tuesday. Vital Signs/Physical Exam: Temp Pulse Resp BP Pulse Ox 98.9 F 86 18 105/50 L 95 05/02/20 04:00 05/02/20 04:00 05/02/20 04:00 05/02/20 04:00 05/02/20 04:00 General: Alert, In no apparent distress HEENT: Atraumatic, PERRLA, EOMI Neck: Supple, JVD not distended Respiratory: Clear to auscultation bilaterally, Normal air movement Cardiovascular: Regular rate/rhythm, Normal S1 S2 Gastrointestinal: Normal bowel sounds, No tenderness Musculoskeletal: No tenderness Integumentary: No rashes Neurological: Normal speech, Normal tone, Normal affect Lymphatics: No axilla or inguinal lymphadenopathy Laboratory Data at Discharge: WBC 5.4 K/uL (4.3-10.9) 05/02/20 04:40 Hgb 12.4 g/dL (13.6-17.9) L 05/02/20 04:40 Hct 35.3 % (39.6-49.0) L 05/02/20 04:40 Plt Count 112 K/uL (152-406) L 05/02/20 04:40 PT 20.1 SECONDS (9.5-12.5) H 04/29/20 17:25 INR 1.72 04/29/20 17:25 APTT 32.7 SECONDS (24.3-36.9) 04/29/20 17:25 Sodium 132 mmol/L (136-145) L 05/02/20 04:40 Potassium 3.0 mmol/L (3.5-5.1) L 05/02/20 04:40 BUN 11 mg/dL (7-18) 05/02/20 04:40 Creatinine 0.70 mg/dL (0.55-1.3) 05/02/20 04:40 Glucose 162 mg/dL (74-106) H 05/02/20 04:40 Total Bilirubin Cancelled 04/29/20 Unknown AST Cancelled 04/29/20 Unknown ALT Cancelled 04/29/20 Unknown Alkaline Phosphatase Cancelled 04/29/20 Unknown Home Medications: Apixaban [Eliquis *] 2.5 mg PO BID 04/29/20 Aspirin Chewable [Aspirin Chewable*] 81 mg PO DAILY 04/29/20 Dapagliflozin Propanediol [Farxiga] 5 mg PO DAILY 04/29/20 Lisinopril [Zestril] 20 mg PO DAILY 04/29/20 Metformin HCl 1,000 mg PO BIDWM 04/29/20 hydroCHLOROthiazide [Hydrochlorothiazide*] 25 mg PO DAILY 04/29/20 Amox/Clavulanate [Augmentin 875-125 Tab] 1 each PO BID 14 Days #28 tab 05/02/20 Levofloxacin [Levaquin] 500 mg PO DAILY #14 tablet 05/02/20 New Medications: Amox/Clavulanate [Augmentin 875-125 Tab] 1 each PO BID 14 Days #28 tab Levofloxacin [Levaquin] 500 mg PO DAILY #14 tablet Diet: ADA Activity: Ad denzel Time spent managing pt's care (in minutes): 30
[2020-05-02] MEDS: COLLAGENASE 30 GM OINTMENT TOP SCH (08:12)
[2020-05-02] MEDS: APIXABAN 2.5 MG TABLET PO SCH (08:12)
[2020-05-02] MEDS: lisinopriL 20 MG TAB PO SCH (08:12)
[2020-05-02] MEDS: SODIUM HYPOCHLORITE 0.25% 473 ML TOP SCH (08:12)
[2020-05-02] MEDS: INSULIN -REGULAR HUMAN 50 UNIT/0.5 ML ML IV SCH (08:17)
[2020-05-02 08:20] VITALS: BP 131/72
[2020-05-02 08:34] VITALS: TEMP 97.9
[2020-05-02] MEDS: VANCOMYCIN 2 GM in NA CHLORIDE 0.9% 500 ML IVPB SCH (08:43)
[2020-05-02] MEDS ORDERED: POTASSIUM CL SA 10 MEQ TAB PO ONE (09:00)
[2020-05-02 09:11] VITALS: O2SAT 98
--- NOTE | 2020-05-02 10:00 | P.PN ---
Subjective Date of Service: 05/02/20 Primary Care Provider: Sukumar Chief Complaint: infected diabetic foot. Subjective: Improving Physical Examination - Vital Signs Temperature: 97.9 F Blood Pressure: 131/72 Pulse: 89 Respirations: 19 Pulse Ox (%): 98 - Physical Exam General: Alert, In no apparent distress, Cooperative Musculoskeletal: Other (charcot foot improved redness, no swelling, no cellulitis, wound improving, no drainage.) - Studies Laboratory Data (last 24 hrs) 05/02/20 04:40: Sodium 132 L, Potassium 3.0 L, BUN 11, Creatinine 0.70, Glucose 162 H 05/02/20 04:40: WBC 5.4, Hgb 12.4 L, Hct 35.3 L, Plt Count 112 L 05/01/20 15:13: Potassium 3.2 L Microbiology Data (last 24 hrs): 04/29/20 17:32 Wound - Foot Gram Stain - Final 04/29/20 17:32 Blood - Blood Aerobic Blood Culture - Final B Strep Non-A,B 04/29/20 17:32 Blood - Blood Blood Culture Gram Stain - Final 04/29/20 17:32 Blood - Blood Anaerobic Blood Culture - Final 04/29/20 17:25 Blood - Blood Aerobic Blood Culture - Final B Strep Non-A,B 04/29/20 17:25 Blood - Blood Blood Culture Gram Stain - Final 04/29/20 17:25 Blood - Blood Anaerobic Blood Culture - Final B Strep Non-A,B 04/29/20 17:25 Blood - Blood Gram Stain - Final Assessment And Plan - Current Problems (Diagnosis) (1) Charcot's joint, right ankle and foot Status: Acute Plan: - Continue dakins santyl combination for daily dressing changes until evaluated in wound care center - continue plan per Dr. Patino Physician Review: Patient Assessed, Agree with Above Assessment and Plan
== END 2020-05-02 08:44 | disposition home or self-care (01) | DRG 638 ==
LOC: 2ND 16:29
PROVIDERS: ADMIT Internal Medicine; ATTEND Internal Medicine
DX: E11.621 Type 2 diabetes mellitus with foot ulcer (principal); L03.115 Cellulitis of right lower limb; L02.611 Cutaneous abscess of right foot; L97.519 Non-pressure chronic ulcer of other part of right foot with unspecified severity; I10 Essential (primary) hypertension; E11.51 Type 2 diabetes mellitus with diabetic peripheral angiopathy without gangrene; E11.610 Type 2 diabetes mellitus with diabetic neuropathic arthropathy; B95.1 Streptococcus, group B, as the cause of diseases classified elsewhere; Z89.411 Acquired absence of right great toe; Z79.01 Long term (current) use of anticoagulants; Z79.82 Long term (current) use of aspirin; Z79.84 Long term (current) use of oral hypoglycemic drugs; Z79.899 Other long term (current) drug therapy; Z87.891 Personal history of nicotine dependence; Z11.59 Encounter for screening for other viral diseases
CPT/HCPCS: 36415; 80048; 80076; 80202; 82565; 82947; 83605; 84132; 85025; 85610; 85730; 87040; 87070; 87077; 87186; 87205; J1650; J2405; J3370; J3590; J7030; J7040; U0002

== ENCOUNTER 2020-05-07 08:28 | Day surgery (SDC) | payer BC ==
[2020-05-07 08:45] LABS: Absolute Lymphocytes (CBC) 1.6 K/uL (0.7-4.9); Basophils % 0.6 % (0-1.3); Hematocrit 37.8 % (39.6-49.0); Lymphocytes % 21.6 % (15.3-44.8); MPV 7.1 fL (7.6-11.3)
[2020-05-07 08:51] LABS: Protime INR 1.37
[2020-05-07] MEDS ORDERED: LIDOCAINE 1% MPF 5 ML VIAL ONE ×2 (09:05→10:16)
[2020-05-07] MEDS ORDERED: CEFAZOLIN/SWI 2gm 2 GM/20 ML SYR ONE (09:34)
[2020-05-07] MEDS: NA CHLORIDE 0.9% 1,000 ML ONE ×2 (09:40→10:15)
[2020-05-07] MEDS ORDERED: LIDOCAINE 1% MPF 30 ML VIAL ONE (09:43)
[2020-05-07] MEDS ORDERED: BUPIVACA 0.25%/EPI 0.0005%/PF 30 ML VIAL ONE (09:44)
[2020-05-07] MEDS ORDERED: POTASSIUM CL SA 10 MEQ TAB PO ONE (10:00)
[2020-05-07] MEDS ORDERED: FENTANYL CITR 100 MCG/2 ML ONE (10:16)
[2020-05-07] MEDS ORDERED: MIDAZOLAM HCL 2 MG/2 ML INJ ONE (10:16)
[2020-05-07] MEDS ORDERED: propofoL 200 MG/20 ML VIAL IV ONE (10:16)
[2020-05-07] MEDS ORDERED: dexAMETHasone 10 MG/ML VIAL ONE (10:38)
[2020-05-07] MEDS ORDERED: ONDANSETRON 4 MG/2 ML VIAL ONE (10:38)
[2020-05-07] MEDS ORDERED: KETOROLAC 30 MG/ML INJ ONE (10:38)
--- NOTE | 2020-05-07 11:00 | P.OP ---
Autism Specialist: NONE,NONE Preoperative diagnosis: Abscess of RIGHT foot Postoperative diagnosis: Abscess of RIGHT foot Primary procedure: Excisional Debridement of RIGHT foot Anesthesia: GETA Estimated blood loss: <20cc Specimen: cultures, debridement tissue Findings: multiloculated abscess of RIGHT foot along lateral midfoot, dorsum 2nd phal Complications: None Transferred to: Recovery Room Condition: Good
[2020-05-07 11:33] VITALS: O2SAT 96
--- NOTE | 2020-05-07 11:35 | OP ---
Date of Procedure: 05/07/2020 Surgeon: Franklyn Hays MD, Brief History Of Present Illness: The patient is a 49-year-old male with history of a Charcot foot o f the right foot status post debridement approximately a year ago with significant improvement at naseem t time. However, over the past month, he noted that there has been some worsening of the foot with s ome cellulitic changes and open wound on the lateral aspect of the foot with draining purulent fluid. As such, he was admitted to the hospital recently, given antibiotics, had a temporary transient imp rovement of his symptoms and then worsened after being discharged back home to the hospital. He has such presented to the clinic with the above-stated complaints and was deemed appropriate for operativ e intervention. I have discussed the possibility of oitjw-vmt-uyig amputation, however, the patient still is hesitant to consider zojck-chr-jxml amputation and asked for 1 last attempted debridement to see if it can spare his foot. If this was unsuccessful, he agrees to likely fmgva-sbd-ckex amputati on. Preoperative Diagnosis: Multiloculated abscesses of the right foot. Postoperative Diagnosis: Multiloculated abscesses of the right foot. Procedure Performed: Excisional debridement of the right foot. Anesthesia: General endotracheal. Estimated Blood Loss: Less than 20 mL. Specimen: Cultures sent for both aerobic and anaerobic speciation debridement tissue. Findings: Multiloculated abscess of the right foot along the lateral mid foot as well as the dorsal second phalanx extending laterally through the third metatarsophalangeal region into the metatarsal a yadi proximally and distally. Complications: None. Transferred to recovery room in good condition. Procedure In Detail: After informed consent was obtained, the patient was brought to the operating r oom, prepped and draped in the usual sterile fashion after adequate anesthesia achieved. I started w ith a small punctate opening on the lateral aspect of the dorsal mid foot and made an elliptical inci kirti around the area of obvious wound necrosis. I opened this area for approximately 2.5 to 3 cm and digitized the area and found to be consistent with a multiloculated abscess, which was cultured at t his time for aerobic and anaerobic speciation. I then digitized and broke a multiloculated abscesses here and found some necrosis. As such, I extended the incision proximally and distally to unroof th e entire area and allow for adequate cleansing of the area. I then debrided all necrotic tissue and digitized the area to expose and break up all loculations. After this was performed, I turned my att ention to the dorsal mid foot where an area of fluctuance was appreciated. I made approximately 4.5 cm incision and found that there was a multiloculated abscess here. I digitized for approximately se cond metatarsophalangeal joint space and extended along the third and fourth metatarsophalangeal join t. As such, I created a distal flap along this and a L-type incision to open this up and unroof in i ts entirety. I then removed this ellipse of skin and removed all necrotic tissue with a combination of sharp debridement and electrocautery. At this point after this was completed, I used the pulse la vage device to clean both wounds at this point and got down to good bleeding tissue. I oversewed a s mall bleeding vessel with a cexexl-mw-hhwli suture using a 3-0 Vicryl on the lateral mid foot area, w hich was a small superficial bleeder. At this point, I copiously irrigated the area once again and a chieved hemostasis with the remainder of the areas with supple hemostasis electrocautery. At this po int, the area was copiously irrigated once again and hemostasis was achieved at this point. I then p acked the wound with a gauze soaked in Betadine damp to dry. A sterile dressing was placed over the top. The patient tolerated the procedure well without evidence of complication, transferred in good condition. All counts were correct at the of the case. JOE/BRONSONL Voice ID: [id number] Report ID: [id number]
[2020-05-07 12:49] VITALS: BP 105/64; TEMP 96.9
== END 2020-05-07 12:09 | disposition home or self-care (01) ==
LOC: OR 08:28
PROVIDERS: ATTEND Surgery
PROC: 0HBMXZZ Excision of Right Foot Skin, External Approach (ICD-10-PCS; principal; 2020-05-07 10:00)
DX: E11.610 Type 2 diabetes mellitus with diabetic neuropathic arthropathy (principal); L03.115 Cellulitis of right lower limb; Z79.4 Long term (current) use of insulin; Z79.84 Long term (current) use of oral hypoglycemic drugs; I10 Essential (primary) hypertension
CPT/HCPCS: 87070; 85025; 80048; 36415; 87205; 85610; 82947 ×2; 88304; 85730; 87075; 11042; J2704; J2250; J3010; J1100; J0690; J7030; J2405; 88305

== ENCOUNTER 2021-07-30 16:47 | Emergency (ER) | payer BC ==
[2021-07-30] MEDS ORDERED: LIDOCAINE 4% PATCH ONE (20:02)
[2021-07-30 20:32] LABS: Absolute Lymphocytes (CBC) 1.2 K/uL (0.7-4.9); Basophils % 1.1 % (0-1.3); Hematocrit 37.3 % (39.6-49.0); MPV 7.2 fL (7.6-11.3); RBC Red Blood Cell Count 4.23 M/uL (4.33-5.43)
[2021-07-30 20:44] LABS: Potassium 3.6 mmol/L (3.5-5.1); Sodium Level 128 mmol/L (136-145)
[2021-07-30 20:53] LABS: ALT/SGPT 33 U/L (12-78); AST/SGOT 25 U/L (15-37); Albumin 2.5 g/dL (3.4-5.0); Alkaline Phosphatase 117 U/L (45-117); BUN Blood Urea Nitrogen 9 mg/dL (7-18); Bicarbonate 28 mmol/L (21-32); Bilirubin Direct 0.4 mg/dL (0-0.2); Bilirubin Total 0.9 mg/dL (0.2-1.0); Glucose Level 272 mg/dL (74-106); Lipase 143 U/L (73-393); Protein, Total 7.8 g/dL (6.4-8.2)
[2021-07-30 21:23] LABS: Urine Blood 2+ (Negative); Urine Glucose 3+ (Negative); Urine Protein 2+ (Negative)
--- NOTE | 2021-07-30 21:47 | RAD REPORT ---
EXAM DESCRIPTION: CT - Stone Protocol - 07/30/2021 9:20 pm CLINICAL HISTORY: left flank pain COMPARISON: Lower Ext Wo Con W/ Mpr dated 08/25/2019 TECHNIQUE: Axial 3 mm thick images were obtained without oral or IV contrast. The [id number] span s the entirety of the system including uppermost abdomen and lung bases. All CT scans are performed using dose optimization technique as appropriate and may include automated exposure control or mA/KV adjustment according to patient size. FINDINGS: No hydronephrosis is present and no obstructing ureteral calculi. No suspicious renal mass es. Isodense masses and pyelonephritis are not excluded on a stone protocol CT scan. No significant a drenal finding. No urinary bladder suspicious finding. Imaged portions of the liver, spleen and pancreas show no suspicious findings on non-contrast imaging . No gallbladder or biliary tree abnormality identified. No suspicious bowel findings. Appendix is normal. Small fat only left inguinal hernia present. No free air, free fluid or inflammatory stranding. No significant bony abnormality. Prominent L5-S1 disc and endplate degenerative changes present. Patient has multiple abnormal right inguinal nodes. Largest is 4 centimeter in size. IMPRESSION: Multiple abnormal right inguinal lymph nodes up to 4 cm in size. In the absence of any a dditional information, finding is concerning for lymphoma or other malignant process and follow-up ul trasound-guided biopsy likely be needed. No hydronephrosis, obstructing calculus or acute finding. No abnormality seen to explain left-side d pain pattern. Isodense masses and pyelonephritis are not excluded on stone protocol technique.
[2021-07-30 21:55] LABS: Urine Bacteria 20-50 /HPF (NONE SEEN); Urine Mucus 1+ /HPF (NONE SEEN); Urine Yeast MANY (NONE SEEN)
[2021-07-30] MEDS ORDERED: NA CHLORIDE 0.9% 1,000 ML ONE (22:09)
[2021-07-30] MEDS ORDERED: CEFTRIAXONE 1000 MG/VIAL ONE (22:09)
[2021-07-30] MEDS ORDERED: levoFLOXacin 750 MG TAB ONE (22:09)
--- NOTE | 2021-07-30 22:47 | EDPHYS ---
Physician Documentation [facility] Name: Roverto Figueroa Age: 51 yrs Sex: Male : 1970 Arrival Date: 07/30/2021 Time: 16:53 Bed 12 Private MD: ED Physician Jeevan Escobar HPI: 07/30 20:15 This 51 yrs old Male presents to ER via Wheelchair with complaints of Back cp Pain. 20:15 The patient presents with pain that is acute, with no known mechanism of injury. The cp symptoms are located in the left flank and left mid back. Onset: The symptoms/episode began/occurred this morning. The pain does not radiate. Associated signs and symptoms: Pertinent negatives: abdominal pain, fever, hematuria, incontinence, numbness, weakness. The problem was sustained from unknown cause. Modifying factors: the patient symptoms are aggravated by movement, twist and turn to right. Severity of symptoms: in the emergency department the symptoms are unchanged, despite home interventions. Historical: - Allergies: 17:25 No Known Allergies; ld1 - Home Meds: 17:25 Metformin Oral [Active]; Hydralazine Oral [Active]; ld1 - PMHx: 17:25 Diabetes - NIDDM; Hypertension; ld1 - PSHx: 17:25 Toe amputation; ld1 - Immunization history:: Adult Immunizations up to date, Client reports receiving the 2nd dose of the Covid vaccine. - Social history:: Smoking status: Patient denies any tobacco usage or history of. Patient/guardian denies using alcohol. ROS: 20:20 Constitutional: Negative for body aches, chills, fever, poor PO intake. cp 20:20 Eyes: Negative for injury, pain, redness, and discharge. cp 20:20 Neck: Negative for pain with movement, pain at rest, stiffness. 20:20 Cardiovascular: Negative for chest pain, edema, palpitations. 20:20 Respiratory: Negative for cough, shortness of breath, wheezing. 20:20 Abdomen/GI: Negative for abdominal pain, nausea, vomiting, and diarrhea. 20:20 Back: Positive for flank pain, on the left. 20:20 Skin: Positive for chronic wound to right foot. 20:20 Neuro: Negative for altered mental status, dizziness, headache, weakness. 20:20 All other systems are negative. Exam: 20:25 Constitutional: The patient appears in no acute distress, alert, awake, non-toxic, well cp developed, well nourished, obese. 20:25 Head/Face: Normocephalic, atraumatic. cp 20:25 Eyes: Periorbital structures: appear normal, Conjunctiva: normal, no exudate, no cp injection, Sclera: no appreciated abnormality, Lids and lashes: appear normal, bilaterally. 20:25 ENT: External ear(s): are unremarkable, Nose: is normal, Mouth: Lips: moist, Oral cp mucosa: moist, Posterior pharynx: Airway: no evidence of obstruction, patent. 20:25 Neck: C-spine: vertebral tenderness, is not appreciated, crepitus, is not appreciated, ROM/movement: is normal, is supple, without pain, no range of motions limitations. 20:25 Chest/axilla: Inspection: normal, Palpation: is normal, no crepitus, no tenderness. 20:25 Cardiovascular: Rate: normal, Rhythm: regular. 20:25 Respiratory: the patient does not display signs of respiratory distress, Respirations: normal, no use of accessory muscles, no retractions, labored breathing, is not present, Breath sounds: are clear throughout, no decreased breath sounds, no stridor, no wheezing. 20:25 Abdomen/GI: Inspection: obese Bowel sounds: active, all quadrants, Palpation: abdomen is soft and non-tender, in all quadrants. 20:25 Back: pain, that is mild, of the left mid back, ROM is painful, with rotation to the right, CVA tenderness, that is mild, is noted on the left, vertebral tenderness, is not appreciated, muscle spasm, is not present. 20:25 Neuro: Orientation: to person, place \T\ time. Mentation: is normal, Motor: moves all fours, strength is normal, Sensation: no obvious gross deficits. 20:25 Musculoskeletal/extremity: Extremities: noted in the right foot: erythema, swelling, cp golf ball size open wound plantar surface with purulent drainage. Vital Signs: 17:23 BP 149 / 89; Pulse 110; Resp 20; Temp 98.6(TE); Pulse Ox 96% on R/A; Weight 119.75 kg; ld1 Height 5 ft. 11 in. (180.34 cm); Pain 1/10; 19:13 BP 146 / 91; Pulse 106; Resp 19; Pulse Ox 97% on R/A; ld1 20:47 BP 149 / 89; Pulse 105; Resp 18; Pulse Ox 97% on R/A; ld1 22:30 BP 142 / 88; Pulse 101; Resp 18; Pulse Ox 100% on R/A; ld1 17:23 Body Mass Index 36.82 (119.75 kg, 180.34 cm) ld1 MDM: 19:53 Patient medically screened. lea 20:30 Differential diagnosis: ruptured disc, Ureterolithiasis pulled muscle, UTI, cp pyelonephritis, sepsis. 22:45 Data reviewed: vital signs, nurses notes, lab test result(s), radiologic studies, CT cp scan. 22:45 Counseling: I had a detailed discussion with the patient and/or guardian regarding: the cp historical points, exam findings, and any diagnostic results supporting the discharge/admit diagnosis, lab results, radiology results, the need for outpatient follow up, for definitive care, a general surgeon, an shank inspector, to return to the emergency department if symptoms worsen or persist or if there are any questions or concerns that arise at home. Response to treatment: Pain improved. Discussed admission for IV antibiotics for right foot cellulitis, but patient refuses at this time and requests to try outpatient oral antibiotics. 07/30 20: Order name: Basic Metabolic Panel; Complete Time: 21:02 cp 07/30 21: Interpretation: Normal except: NA 128; CL 90; GLUC 272. cp 07/30 20: Order name: CBC with Diff; Complete Time: 21:02 cp 07/30 21: Interpretation: Normal except: RBC 4.23; HGB 13.1; HCT 37.3; MPV 7.2; JANICE% 76.1; LYM% cp 14.0. 07/30 20: Order name: Hepatic Function; Complete Time: 21:02 cp 07/30 20: Order name: Lipase; Complete Time: 21:02 cp 07/30 20: Order name: Urine Microscopic Only; Complete Time: 21:56 cp 07/30 21:56 Interpretation: Normal except: UWBC 5-10; URBC 5-10; UBACT 20-50. cp 07/30 21:23 Order name: Urine Dipstick-Ancillary; Complete Time: 21:56 EDMS 11/11 21:57 Interpretation: Normal except: UGLUC 3+; UKET 2+; UBLD 2+; UPROT 2+. cp 07/30 20:01 Order name: IV Saline Lock; Complete Time: 21:23 cp 07/30 20:01 Order name: Labs collected and sent; Complete Time: 21:23 cp 07/30 20:01 Order name: Urine Dipstick-Ancillary (obtain specimen); Complete Time: 21:23 cp 07/30 21:03 Order name: CT Stone Protocol; Complete Time: 21:56 cp 07/30 21:56 Order name: Urine Culture EDMS Administered Medications: 20:06 Drug: Lidoderm Patch 5 % (700 mg/patch) 1 patches Route: Topical; Site: affected area; ld1 22:33 Drug: Rocephin (cefTRIAXone) 1 grams Route: IV; Rate: calculated rate; Site: right ld1 antecubital; 22:33 Drug: NS 0.9% 1000 ml Route: IV; Rate: 1 bolus; Site: right antecubital; ld1 Disposition: 07/31 08:49 Co-signature as Attending Physician, Jeevan Escobar MD I agree with the assessment and lea plan of care. Disposition Summary: 07/30/21 22:47 Discharge Ordered Location: Home cp Problem: new cp Symptoms: have improved cp Condition: Stable cp Diagnosis - Dorsalgia, unspecified cp - UTI/ Urinary tract infection, site not specified cp - Cellulitis of right lower limb cp Followup: cp - With: Private Physician - When: 2 - 3 days - Reason: Recheck today's complaints Discharge Instructions: - Discharge Summary Sheet cp - Acute Back Pain, Adult cp - Cellulitis, Adult cp - Urinary Tract Infection, Adult cp Forms: - Medication Reconciliation Form cp - Thank You Letter cp - Antibiotic Education cp - Prescription Opioid Use cp - Family Work Release tt3 Prescriptions: - Lidoderm 5 % Topical adhesive patch,medicated - apply 1 patch by TOPICAL route once daily; 1 box; Refills: 0, Product Selection cp Permitted - Cyclobenzaprine 10 mg Oral Tablet - take 1 tablet by ORAL route every 8 hours As needed; 20 tablet; Refills: 0, cp Product Selection Permitted - Bactrim DS 800-160 mg Oral Tablet - take 1 tablet by ORAL route every 12 hours for 7 days; 14 tablet; Refills: 0, cp Product Selection Permitted - levofloxacin 750 mg Oral Tablet - take 1 tablet by ORAL route once daily for 8-10 days; 9 tablet; Refills: 0, cp Product Selection Permitted Signatures: Dispatcher [employer] EDJeevan Ann MD MD cha Page, Corey, PA PA Shannan Bolden RN RN ld1 Corrections: (The following items were deleted from the chart) 22:05 07/30 20:25 Skin: cellulitis, is not appreciated, no rash present. cp cp
--- NOTE | 2021-07-30 22:47 | ER ---
Nurse's Notes [facility] Name: Roverto Figueroa Age: 51 yrs Sex: Male : 1970 Arrival Date: 07/30/2021 Time: 16:53 Bed 12 Private MD: Diagnosis: Dorsalgia, unspecified;UTI/ Urinary tract infection, site not specified;Cellulitis of right lower limb Presentation: 07/30 17:23 Chief complaint: Patient states: I am having really bad back pain that began today, ld1 denies trauma or pulling it. Coronavirus screen: At this time, the client does not indicate any symptoms associated with coronavirus-19. Ebola Screen: No symptoms or risks identified at this time. Initial Sepsis Screen: Does the patient meet any 2 criteria? No. Patient's initial sepsis screen is negative. Does the patient have a suspected source of infection? No. Patient's initial sepsis screen is negative. Risk Assessment: Do you want to hurt yourself or someone else? Patient reports no desire to harm self or others. Onset of symptoms was July 30, 2021 at 17:25. 17:23 Method Of Arrival: Wheelchair ld1 17:23 Acuity: KAMRYN 4 ld1 Triage Assessment: 17:23 General: Appears in no apparent distress. uncomfortable, Behavior is calm, cooperative, ld1 appropriate for age. Pain: Complains of pain in lumbar area Pain does not radiate. Pain currently is 1 out of 10 on a pain scale. at worst was 10 out of 10 on a pain scale. Quality of pain is described as throbbing, Pain began suddenly, Is continuous. EENT: No signs and/or symptoms were reported regarding the EENT system. Neuro: Level of Consciousness is awake, alert, obeys commands, Oriented to person, place, time, situation, Appropriate for age. Cardiovascular: Capillary refill < 3 seconds Patient's skin is warm and dry. Respiratory: Airway is patent Respiratory effort is even, unlabored, Respiratory pattern is regular, symmetrical. GI: Abdomen is round non-distended. : No signs and/or symptoms were reported regarding the genitourinary system. Derm: No signs and/or symptoms reported regarding the dermatologic system. Musculoskeletal: Reports pain in back. Historical: - Allergies: 17:25 No Known Allergies; ld1 - Home Meds: 17:25 Metformin Oral [Active]; Hydralazine Oral [Active]; ld1 - PMHx: 17:25 Diabetes - NIDDM; Hypertension; ld1 - PSHx: 17:25 Toe amputation; ld1 - Immunization history:: Adult Immunizations up to date, Client reports receiving the 2nd dose of the Covid vaccine. - Social history:: Smoking status: Patient denies any tobacco usage or history of. Patient/guardian denies using alcohol. Screenin:06 Abuse screen: Denies threats or abuse. Denies injuries from another. Nutritional ld1 screening: No deficits noted. Tuberculosis screening: No symptoms or risk factors identified. Fall Risk None identified. Assessment: 19:13 Reassessment: Patient appears in no apparent distress at this time. No changes from ld1 previously documented assessment. Patient and/or family updated on plan of care and expected duration. Pain level reassessed. Patient is alert, oriented x 3, equal unlabored respirations, skin warm/dry/pink. 20:47 Reassessment: Patient appears in no apparent distress at this time. Patient and/or ld1 family updated on plan of care and expected duration. Pain level reassessed. Patient is alert, oriented x 3, equal unlabored respirations, skin warm/dry/pink. 22:30 Reassessment: Patient appears in no apparent distress at this time. Patient and/or ld1 family updated on plan of care and expected duration. Pain level reassessed. wrapped wound on right foot. Patient denies any concerns, states he is ready to go home. Vital Signs: 17:23 BP 149 / 89; Pulse 110; Resp 20; Temp 98.6(TE); Pulse Ox 96% on R/A; Weight 119.75 kg; ld1 Height 5 ft. 11 in. (180.34 cm); Pain 1/10; 19:13 BP 146 / 91; Pulse 106; Resp 19; Pulse Ox 97% on R/A; ld1 20:47 BP 149 / 89; Pulse 105; Resp 18; Pulse Ox 97% on R/A; ld1 22:30 BP 142 / 88; Pulse 101; Resp 18; Pulse Ox 100% on R/A; ld1 17:23 Body Mass Index 36.82 (119.75 kg, 180.34 cm) ld1 ED Course: 16:53 Patient arrived in ED. mr Camila:23 Arm band placed on left wrist. ld1 17:25 Triage completed. ld1 19:13 Shannan Black, RN is Primary Nurse. ld1 19:53 Jeevan Quintana PA is PHCP. cp 19:53 Jeevan Escobar MD is Attending Physician. cp 20:29 Inserted saline lock: 20 gauge in right forearm, using aseptic technique. kj1 21:19 CT Stone Protocol In Process Unspecified. EDMS 21:23 Urine Microscopic Only Sent. ld1 23:06 No provider procedures requiring assistance completed. IV discontinued, intact, ld1 bleeding controlled, No redness/swelling at site. 23:07 Patient has correct armband on for positive identification. Placed in gown. Bed in low ld1 position. Call light in reach. Side rails up X2. Pulse ox on. NIBP on. Administered Medications: 20:06 Drug: Lidoderm Patch 5 % (700 mg/patch) 1 patches Route: Topical; Site: affected area; ld1 22:33 Drug: Rocephin (cefTRIAXone) 1 grams Route: IV; Rate: calculated rate; Site: right ld1 antecubital; 22:33 Drug: NS 0.9% 1000 ml Route: IV; Rate: 1 bolus; Site: right antecubital; ld1 Outcome: 22:47 Discharge ordered by MD. cp 23:06 Discharged to home via wheelchair, with family. ld1 23:06 Condition: stable 23:06 Discharge instructions given to patient, family, Instructed on discharge instructions, follow up and referral plans. medication usage, Demonstrated understanding of instructions, follow-up care, medications, Prescriptions given X 4. 23:07 Patient left the ED. ld1 Signatures: Dispatcher [employer] EDKY Marissa Branch Jeevan Quintana PA PA cp Jackson, Kandis kj1 Shannan Black, RN RN ld1 Corrections: (The following items were deleted from the chart) 17:26 17:23 Pulse 110bpm; Resp 95bpm; Pulse Ox 96% RA; Temp 98.6F Temporal; 119.75 kg; Height ld1 5 ft. 11 in.; BMI: 36.8; Pain 1/10; ld1 18:35 17:23 BP 149 / 89; Pulse 110bpm; Resp 95bpm; Pulse Ox 96% RA; Temp 98.6F Temporal; ld1 119.75 kg; Height 5 ft. 11 in.; BMI: 36.8; Pain 1/; ld1
[2021-07-30 23:25] VITALS: TEMP 98.6
[2021-07-30 23:29] VITALS: BP 142/88; O2SAT 100
--- OUTSIDE RECORDS SUMMARY | 2021-08-01 21:49 | XMS REPORT | Continuity of Care Document ---
:1970 Author Organization [facility] t Address [address] [place] [address] Care Team Providers Name Role Phone Shelbi ERNANDEZ Attending Clinician Unavailable Shahbaz LEWIS Attending Clinician Unavailable [id number] Attending Clinician Unavailable JENY Attending Clinician Unavailable Rachid Saavedra DO Attending Clinician Kathie GONSALES Attending Clinician Unavailable Jeison GONZÁLES Attending Clinician JEISON Attending Clinician Unavailable Kathie Gonsales DPM Attending Clinician [facility] Attending Clinician Unavailable Grace GONZALEZ Attending Clinician Dennis GONZÁLES Attending Clinician Doctor Unassigned, Name Attending Clinician Unavailable Payers Payer Name Policy Type Policy Number Effective Date Expiration Date S juani BCBS 2 [id number] 2020 00:00:00 Problems Condition Condition Condition Status Onset Resolution Last Treating Co mments Source Name Details Category Date Date Treatment Clinician Date 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[facility] 2-01 ity of foot foot 00:00: [place] deformity deformity 00 [facility] Branch Diabetic Diabetic Disease Active [facility]ive rs foot foot 9-25 [place] Type 2 Type 2 Disease Active [facility] diabetes diabetes 3-17 ity of mellitus mellitus 00:00: [place] with with 00 Medical diabetic diabetic Branch polyneurop polyneurop athy, athy, without without long-term long-term current current use of use of insulin insulin Obesity Obesity Disease Active Univers (BMI (BMI 3-07 ity of 30-39.9) 30-39.9) 00:00: [place] 00 [facility] Cellulitis Cellulitis Disease Active U nivers of foot, of foot, 3-06 ity of right right 00:00: [address] Essential Essential Disease Active 2014-09 Uni vers hypertensi hypertensi 0-06 it y of on on 00:00: [place] [id number] Medical Branch Erectile Erectile Disease Active 2014-09 Unive rs dysfunctio dysfunctio 0-06 it y of n, n, 00:00: [place] unspecifie unspecifie 00 Me dical d erectile d erectile Br anch dysfunctio dysfunctio n type n type Allergies, Adverse Reactions, Alerts Allergy Allergy Status Severity Reaction(s) Onset Inactive Treating Comm ents Source Name Type Date Date Clinician NO KNOWN Drug Active Univers ALLERGIE Class ity of S [facility] Social History Social Habit Start Date Stop Date Quantity Comments Source Exposure to Not sure [facility] SARS-CoV-2 (event) [facility] Cigarettes smoked 2020-10-20 2020-10-20 Univers ity of current (pack per 00:00:00 00:00:00 [facility] ) - Reported [place] Cigarette 2020-10-20 2020-10-20 University of pack-years 00:00:00 00:00:00 [facility] Tobacco use and 2020-10-20 2020-10-20 Never used Universit y of exposure 00:00:00 00:00:00 [facility] Alcohol intake 2020-10-20 2020-10-20 Current drinker Unive rsity of 00:00:00 00:00:00 of alcohol [facility] (finding) [place] Alcohol Comment 2017-06-13 2017-06-13 4-6 beers a day Univ ersity of 00:00:00 00:00:00 [facility] History of tobacco 2013-08-30 Cigarette Smoker University of use 00:00:00 [facility] Sex [birth year] Universit y of 00:00:00 00:00:00 [facility] Smoking Status Start Date Stop Date Source Former smoker 2020-10-20 00:00:00 2020-10-20 00:00:00 Universi ty of [facility] Medications Ordered Filled Start Stop Current Ordering Indication Dosage Frequency Signature Comments Components Source Medication Medication Date Date Medication? Clinician (SIG) Name Name dapaglifloz 2019- Yes 5mg Take 5 mg U nivers in 10-11 by mouth. ity of (FARXIGA) 5 19:20: [place] mg tablet 18 Medical Branch dapaglifloz 2020- Yes 5mg Take 5 mg U nivers in 10-11 by mouth. ity of (FARXIGA) 5 19:20: [place] mg tablet 18 Medical Branch dapaglifloz 2020- Yes 5mg Take 5 mg U nivers in 10-11 by mouth. ity of (FARXIGA) 5 19:20: [place] mg tablet 18 Medical Branch dapaglifloz 2020- Yes 5mg Take 5 mg U nivers in 10-11 by mouth. ity of (FARXIGA) 5 19:20: [place] mg tablet 18 Medical Branch dapaglifloz 2020- Yes 5mg Take 5 mg U nivers in 10-11 by mouth. ity of (FARXIGA) 5 19:20: [place] mg tablet 18 Medical Branch dapaglifloz 2019- Yes 5mg Take 5 mg U nivers in 10-11 by mouth. ity of (FARXIGA) 5 19:20: [place] mg tablet 18 Medical Branch dapaglifloz 2019- Yes 5mg Take 5 mg U nivers in 10-11 by mouth. ity of (FARXIGA) 5 19:20: [place] mg tablet 18 Medical Branch dapaglifloz 2019- Yes 5mg Take 5 mg U nivers in 10-11 by mouth. ity of (FARXIGA) 5 19:20: [place] mg tablet 18 Medical Branch dapaglifloz 2020- Yes 5mg Take 5 mg U nivers in 10-11 by mouth. ity of (FARXIGA) 5 19:20: [place] mg tablet 18 Medical Branch dapaglifloz 2020- Yes 5mg Take 5 mg U nivers in 10-11 by mouth. ity of (FARXIGA) 5 19:20: [place] mg tablet 18 Medical Branch dapaglifloz 2020- Yes 5mg Take 5 mg U nivers in 10-11 by mouth. ity of (FARXIGA) 5 19:20: [place] mg tablet 18 Medical Branch dapaglifloz 2020- Yes 5mg Take 5 mg U nivers in 10-11 by mouth. ity of (FARXIGA) 5 19:20: [place] mg tablet 18 [facility] NaCl 0.9% 2016-09 Yes 10mL Univers (NS) 0-18 ity of injection 17:12: [place] 10 mL 06 [facility] NaCl 0.9% 2016-09 Yes 10mL Univers (NS) 0-18 ity of injection 17:12: [place] [address] [place] [address] NaCl 0.9% 2016-09 Yes 10mL Univers (NS) 0-18 ity of injection 17:12: [place] 10 mL 06 [facility] NaCl 0.9% 2016-09 Yes 10mL Univers (NS) 0-18 ity of injection 17:12: [place] [address] [place] [address] NaCl 0.9% 2016-09 Yes 10mL Univers (NS) 0-18 ity of injection 17:12: [place] 10 mL 06 [facility] NaCl 0.9% 2016-09 Yes 10mL Univers (NS) 0-18 ity of injection 17:12: [place] [address] [place] [address] NaCl 0.9% 2016-09 Yes 10mL Univers (NS) 0-18 ity of injection 17:12: [place] 10 mL 06 [facility] NaCl 0.9% 2016-09 Yes 10mL Univers (NS) 0-18 ity of injection 17:12: [place] [address] [place] [address] NaCl 0.9% 2016-09 Yes 10mL Univers (NS) 0-18 ity of injection 17:12: [place] 10 mL 06 [facility] NaCl 0.9% 2016-09 Yes 10mL Univers (NS) 0-18 ity of injection 17:12: [place] [address] [place] [address] NaCl 0.9% 2016-09 Yes 10mL Univers (NS) 0-18 ity of injection 17:12: [place] [address] [place] [address] NaCl 0.9% 2016-09 Yes 10mL Univers (NS) 0-18 ity of injection 17:12: [place] [address] [place] [address] NaCl 0.9% 2016-09 Yes 10mL Univers (NS) 0-18 ity of injection 17:12: [place] [address] [place] [address] amLODIPine 2016-09 Yes [id number] 10mg Take 1 U nivers 10 mg 0-16 tablet by ity of tablet 00:00: mouth [place] 00 daily. Medical Branch insulin 2016-09 Yes [id number] 40U inject 40 U nivers glargine 0-16 Units ity of 100 unit/mL 00:00: [place] the [place] injection 00 skin at Medical bedtime. Branch blood sugar 2016-09 Yes [id number] Use TID, Univers diagnostic 0-16 DX E11.9 ity o f strip 00:00: ([facility] upon [facility] Branch approval) lancets-blo 2016-09 Yes [id number] 1{each} 1 Each 2 Univers od glucose 0-16 (two) ity of strips 30 00:00: times [place] gauge Cmpk 00 daily. Medical Branch Blood-Gluco 2016-09 Yes [id number] Use TID, Univers se Meter 0-16 DX E11.9 ity of Kit 00:00: ([facility] upon [facility] approval) sildenafil 2016-09 Yes [id number] Take 1 Tab Univers 25 mg 0-16 PO Daily 1 ity of tablet 00:00: hr (range: [place] 00 30 min - 4 Medical hrs) Branch before sexual activity as needed metFORMIN 2016-09 Yes [id number] 1000mg Take 2 Univers 500 mg 0-16 tablets by ity of tablet 00:00: mouth 2 [place] 00 (two) Medical times Branch daily with meals. hydroCHLORO 2016-09 Yes [id number] 25mg Take 1 Univers thiazide 25 0-16 tablet by ity of mg tablet 00:00: mouth [place] 00 daily. Medical Branch lisinopril 2016-09 Yes [id number] 5mg Take 1 U nivers 5 mg tablet 0-16 tablet by ity of 00:00: mouth [place] 00 daily. Medical Branch amLODIPine 2016-09 Yes [id number] 10mg Take 1 U nivers 10 mg 0-16 tablet by ity of tablet 00:00: mouth [place] 00 daily. Medical Branch insulin 2016-09 Yes [id number] 40U inject 40 U nivers glargine 0-16 Units ity of 100 unit/mL 00:00: [place] injection 00 skin at Medical bedtime. Branch blood sugar 2016-09 Yes [id number] Use TID, Univers diagnostic 0-16 DX E11.9 ity o f strip 00:00: ([facility] upon [facility] Branch approval) lancets-blo 2016-09 Yes [id number] 1{each} 1 Each 2 Univers od glucose 0-16 (two) ity of strips 30 00:00: times [place] gauge Cmpk 00 daily. Medical Branch Blood-Gluco 2016-09 Yes [id number] Use TID, Univers se Meter 0-16 DX E11.9 ity of Kit 00:00: ([place] [address] upon [facility] Branch approval) sildenafil 2016-09 Yes [id number] Take 1 Tab Univers 25 mg 0-16 PO Daily 1 ity of tablet 00:00: hr (range: [place] 00 30 min - 4 Medical hrs) Branch before sexual activity as needed metFORMIN 2016-09 Yes [id number] 1000mg Take 2 Univers 500 mg 0-16 tablets by ity of tablet 00:00: mouth 2 [place] 00 (two) Medical times Branch daily with meals. hydroCHLORO 2016-09 Yes [id number] 25mg Take 1 Univers thiazide 25 0-16 tablet by ity of mg tablet 00:00: mouth [place] 00 daily. Medical Branch lisinopril 2016-09 Yes [id number] 5mg Take 1 U nivers 5 mg tablet 0-16 tablet by ity of 00:00: mouth [place] 00 daily. Medical Branch amLODIPine 2016-09 Yes [id number] 10mg Take 1 U nivers 10 mg 0-16 tablet by ity of tablet 00:00: mouth [place] 00 daily. Medical Branch insulin 2016-09 Yes [id number] 40U inject 40 U nivers glargine 0-16 Units ity of 100 unit/mL 00:00: under the [place] injection 00 skin at Medical bedtime. Branch blood sugar 2016-09 Yes [id number] Use TID, Univers diagnostic 0-16 DX E11.9 ity o f strip 00:00: ([facility] upon [facility] approval) lancets-blo 2016-09 Yes [id number] 1{each} 1 Each 2 Univers od glucose 0-16 (two) ity of strips 30 00:00: times [place] gauge Cmpk 00 daily. Medical Branch Blood-Gluco 2016-09 Yes [id number] Use TID, Univers se Meter 0-16 DX E11.9 ity of Kit 00:00: ([place] [address] upon [facility] Branch approval) sildenafil 2016-09 Yes [id number] Take 1 Tab Univers 25 mg 0-16 PO Daily 1 ity of tablet 00:00: hr (range: [place] 00 30 min - 4 Medical hrs) Branch before sexual activity as needed metFORMIN 2016-09 Yes [id number] 1000mg Take 2 Univers 500 mg 0-16 tablets by ity of tablet 00:00: mouth 2 [place] 00 (two) Medical times Branch daily with meals. hydroCHLORO 2016-09 Yes [id number] 25mg Take 1 Univers thiazide 25 0-16 tablet by ity of mg tablet 00:00: mouth [place] 00 daily. Medical Branch lisinopril 2016-09 Yes [id number] 5mg Take 1 U nivers 5 mg tablet 0-16 tablet by ity of 00:00: mouth [place] 00 daily. Medical Branch amLODIPine 2016-09 Yes [id number] 10mg Take 1 U nivers 10 mg 0-16 tablet by ity of tablet 00:00: mouth [place] 00 daily. Medical Branch insulin 2016-09 Yes [id number] 40U inject 40 U nivers glargine 0-16 Units ity of 100 unit/mL 00:00: under the [place] injection 00 skin at Medical bedtime. Branch blood sugar 2016-09 Yes [id number] Use TID, Univers diagnostic 0-16 DX E11.9 ity o f strip 00:00: ([address] approval) lancets-blo 2016-09 Yes [id number] 1{each} 1 Each 2 Univers od glucose 0-16 (two) ity of strips 30 00:00: times [place] gauge Cmpk 00 daily. Medical Branch Blood-Gluco 2016-09 Yes [id number] Use TID, Univers se Meter 0-16 DX E11.9 ity of Kit 00:00: ([address] approval) sildenafil 2016-09 Yes [id number] Take 1 Tab Univers 25 mg 0-16 PO Daily 1 ity of tablet 00:00: hr (range: [place] 00 30 min - 4 Medical hrs) Branch before sexual activity as needed metFORMIN 2016-09 Yes [id number] 1000mg Take 2 Univers 500 mg 0-16 tablets by ity of tablet 00:00: mouth 2 [place] 00 (two) Medical times Branch daily with meals. hydroCHLORO 2016-09 Yes [id number] 25mg Take 1 Univers thiazide 25 0-16 tablet by ity of mg tablet 00:00: mouth [place] 00 daily. Medical Branch lisinopril 2016-09 Yes [id number] 5mg Take 1 U nivers 5 mg tablet 0-16 tablet by ity of 00:00: mouth [place] 00 daily. Medical Branch amLODIPine 2016-09 Yes [id number] 10mg Take 1 U nivers 10 mg 0-16 tablet by ity of tablet 00:00: mouth [place] 00 daily. Medical Branch insulin 2016-09 Yes [id number] 40U inject 40 U nivers glargine 0-16 Units ity of 100 unit/mL 00:00: under [place] injection 00 skin at Medical bedtime. Branch blood sugar 2016-09 Yes [id number] Use TID, Univers diagnostic 0-16 DX E11.9 ity o f strip 00:00: ([address] approval) lancets-blo 2016-09 Yes [id number] 1{each} 1 Each 2 Univers od glucose 0-16 (two) ity of strips 30 00:00: times [place] gauge Cmpk 00 daily. Medical Branch sildenafil 2016-09 Yes [id number] Take 1 Tab Univers 25 mg 0-16 PO Daily 1 ity of tablet 00:00: hr (range: [place] 00 30 min - 4 Medical hrs) Branch before sexual activity as needed Blood-Gluco 2016-09 Yes [id number] Use TID, Univers se Meter 0-16 DX E11.9 ity of Kit 00:00: ([address] approval) sildenafil 2016-09 Yes [id number] Take 1 Tab Univers 25 mg 0-16 PO Daily 1 ity of tablet 00:00: hr (range: [place] 00 30 min - 4 Medical hrs) Branch before sexual activity as needed metFORMIN 2016-09 Yes [id number] 1000mg Take 2 Univers 500 mg 0-16 tablets by ity of tablet 00:00: mouth 2 [place] 00 (two) Medical times Branch daily with meals. metFORMIN 2016-09 Yes [id number] 1000mg Take 2 Univers 500 mg 0-16 tablets by ity of tablet 00:00: mouth 2 [place] 00 (two) Medical times Branch daily with meals. hydroCHLORO 2016-09 Yes [id number] 25mg Take 1 Univers thiazide 25 0-16 tablet by ity of mg tablet 00:00: mouth [place] 00 daily. Medical Branch lisinopril 2016-09 Yes [id number] 5mg Take 1 U nivers 5 mg tablet 0-16 tablet by ity of 00:00: mouth [place] 00 daily. Medical Branch amLODIPine 2016-09 Yes [id number] 10mg Take 1 U nivers 10 mg 0-16 tablet by ity of tablet 00:00: mouth [place] 00 daily. Medical Branch insulin 2016-09 Yes [id number] 40U inject 40 U nivers glargine 0-16 Units ity of 100 unit/mL 00:00: under the [place] injection 00 skin at Medical bedtime. Branch blood sugar 2016-09 Yes [id number] Use TID, Univers diagnostic 0-16 DX E11.9 ity o f strip 00:00: ([place] [address] upon [facility] insurance Branch approval) lancets-blo 2016-09 Yes [id number] 1{each} 1 Each 2 Univers od glucose 0-16 (two) ity of strips 30 00:00: times [place] gauge Cmpk 00 daily. Medical Branch Blood-Gluco 2016-09 Yes [id number] Use TID, Univers se Meter 0-16 DX E11.9 ity of Kit 00:00: ([place] [address] upon [facility] Branch approval) hydroCHLORO 2016-09 Yes [id number] 25mg Take 1 Univers thiazide 25 0-16 tablet by ity of mg tablet 00:00: mouth [place] 00 daily. Medical Branch sildenafil 2016-09 Yes [id number] Take 1 Tab Univers 25 mg 0-16 PO Daily 1 ity of tablet 00:00: hr (range: [place] 00 30 min - 4 Medical hrs) Branch before sexual activity as needed metFORMIN 2016-09 Yes [id number] 1000mg Take 2 Univers 500 mg 0-16 tablets by ity of tablet 00:00: mouth 2 [place] 00 (two) Medical times Branch daily with meals. hydroCHLORO 2016-09 Yes [id number] 25mg Take 1 Univers thiazide 25 0-16 tablet by ity of mg tablet 00:00: mouth [place] 00 daily. Medical Branch lisinopril 2016-09 Yes [id number] 5mg Take 1 U nivers 5 mg tablet 0-16 tablet by ity of 00:00: mouth [place] 00 daily. Medical Branch lisinopril 2016-09 Yes [id number] 5mg Take 1 U nivers 5 mg tablet 0-16 tablet by ity of 00:00: mouth [place] 00 daily. Medical Branch amLODIPine 2016-09 Yes [id number] 10mg Take 1 U nivers 10 mg 0-16 tablet by ity of tablet 00:00: mouth [place] 00 daily. Medical Branch insulin 2016-09 Yes [id number] 40U inject 40 U nivers glargine 0-16 Units ity of 100 unit/mL 00:00: under the [place] injection 00 skin at Medical bedtime. Branch blood sugar 2016-09 Yes [id number] Use TID, Univers diagnostic 0-16 DX E11.9 ity o f strip 00:00: ([place] [address] upon [facility] Branch approval) lancets-blo 2016-09 Yes [id number] 1{each} 1 Each 2 Univers od glucose 0-16 (two) ity of strips 30 00:00: times [place] gauge Cmpk 00 daily. Medical Branch Blood-Gluco 2016-09 Yes [id number] Use TID, Univers se Meter 0-16 DX E11.9 ity of Kit 00:00: ([facility] 00 upon [facility] Branch approval) amLODIPine 2016-09 Yes [id number] 10mg Take 1 U nivers 10 mg 0-16 tablet by ity of tablet 00:00: mouth [place] 00 daily. Medical Branch sildenafil 2016-09 Yes [id number] Take 1 Tab Univers 25 mg 0-16 PO Daily 1 ity of tablet 00:00: hr (range: [place] 00 30 min - 4 Medical hrs) Branch before sexual activity as needed metFORMIN 2016-09 Yes [id number] 1000mg Take 2 Univers 500 mg 0-16 tablets by ity of tablet 00:00: mouth 2 [place] 00 (two) Medical times Branch daily with meals. hydroCHLORO 2016-09 Yes [id number] 25mg Take 1 Univers thiazide 25 0-16 tablet by ity of mg tablet 00:00: mouth [place] 00 daily. Medical Branch lisinopril 2016-09 Yes [id number] 5mg Take 1 U nivers 5 mg tablet 0-16 tablet by ity of 00:00: mouth [place] 00 daily. Medical Branch amLODIPine 2016-09 Yes [id number] 10mg Take 1 U nivers 10 mg 0-16 tablet by ity of tablet 00:00: mouth [place] 00 daily. Medical Branch insulin 2016-09 Yes [id number] 40U inject 40 U nivers glargine 0-16 Units ity of 100 unit/mL 00:00: under the [place] injection 00 skin at Medical bedtime. Branch insulin 2016-09 Yes [id number] 40U inject 40 U nivers glargine 0-16 Units ity of 100 unit/mL 00:00: under the [place] injection 00 skin at Medical bedtime. Branch blood sugar 2016-09 Yes [id number] Use TID, Univers diagnostic 0-16 DX E11.9 ity o f strip 00:00: ([address] approval) lancets-blo 2016-09 Yes [id number] 1{each} 1 Each 2 Univers od glucose 0-16 (two) ity of strips 30 00:00: times [place] gauge Cmpk 00 daily. Medical Branch Blood-Gluco 2016-09 Yes [id number] Use TID, Univers se Meter 0-16 DX E11.9 ity of Kit 00:00: ([address] approval) blood sugar 2016-09 Yes [id number] Use TID, Univers diagnostic 0-16 DX E11.9 ity o f strip 00:00: ([address] approval) sildenafil 2016-09 Yes [id number] Take 1 Tab Univers 25 mg 0-16 PO Daily 1 ity of tablet 00:00: hr (range: [place] 00 30 min - 4 Medical hrs) Branch before sexual activity as needed metFORMIN 2016-09 Yes [id number] 1000mg Take 2 Univers 500 mg 0-16 tablets by ity of tablet 00:00: mouth 2 [place] 00 (two) Medical times Branch daily with meals. hydroCHLORO 2016-09 Yes [id number] 25mg Take 1 Univers thiazide 25 0-16 tablet by ity of mg tablet 00:00: mouth [place] 00 daily. Medical Branch lisinopril 2016-09 Yes [id number] 5mg Take 1 U nivers 5 mg tablet 0-16 tablet by ity of 00:00: mouth [place] 00 daily. Medical Branch amLODIPine 2016-09 Yes [id number] 10mg Take 1 U nivers 10 mg 0-16 tablet by ity of tablet 00:00: mouth [place] 00 daily. Medical Branch insulin 2016-09 Yes [id number] 40U inject 40 U nivers glargine 0-16 Units ity of 100 unit/mL 00:00: under the [place] injection 00 skin at Medical bedtime. Branch blood sugar 2016-09 Yes [id number] Use TID, Univers diagnostic 0-16 DX E11.9 ity o f strip 00:00: ([address] approval) lancets-blo 2016-09 Yes [id number] 1{each} 1 Each 2 Univers od glucose 0-16 (two) ity of strips 30 00:00: times [place] gauge Cmpk 00 daily. Medical Branch Blood-Gluco 2016-09 Yes [id number] Use TID, Univers se Meter 0-16 DX E11.9 ity of Kit 00:00: ([facility] upon [facility] approval) lancets-blo 2016-09 Yes [id number] 1{each} 1 Each 2 Univers od glucose 0-16 (two) ity of strips 30 00:00: times [place] gauge Cmpk 00 daily. Medical Branch Blood-Gluco 2016-09 Yes [id number] Use TID, Univers se Meter 0-16 DX E11.9 ity of Kit 00:00: ([facility] upon [facility] approval) sildenafil 2016-09 Yes [id number] Take 1 Tab Univers 25 mg 0-16 PO Daily 1 ity of tablet 00:00: hr (range: [place] 00 30 min - 4 Medical hrs) Branch before sexual activity as needed metFORMIN 2016-09 Yes [id number] 1000mg Take 2 Univers 500 mg 0-16 tablets by ity of tablet 00:00: mouth 2 [place] 00 (two) Medical times Branch daily with meals. hydroCHLORO 2016-09 Yes [id number] 25mg Take 1 Univers thiazide 25 0-16 tablet by ity of mg tablet 00:00: mouth [place] 00 daily. Medical Branch lisinopril 2016-09 Yes [id number] 5mg Take 1 U nivers 5 mg tablet 0-16 tablet by ity of 00:00: mouth [place] 00 daily. Medical Branch amLODIPine 2016-09 Yes [id number] 10mg Take 1 U nivers 10 mg 0-16 tablet by ity of tablet 00:00: mouth [place] 00 daily. Medical Branch insulin 2016-09 Yes [id number] 40U inject 40 U nivers glargine 0-16 Units ity of 100 unit/mL 00:00: under the [place] injection 00 skin at Medical bedtime. Branch blood sugar 2016-09 Yes [id number] Use TID, Univers diagnostic 0-16 DX E11.9 ity o f strip 00:00: ([facility] upon [facility] approval) lancets-blo 2016-09 Yes [id number] 1{each} 1 Each 2 Univers od glucose 0-16 (two) ity of strips 30 00:00: times [place] gauge Cmpk 00 daily. Medical Branch Blood-Gluco 2016-09 Yes [id number] Use TID, Univers se Meter 0-16 DX E11.9 ity of Kit 00:00: ([facility] upon [facility] approval) sildenafil 2016-09 Yes [id number] Take 1 Tab Univers 25 mg 0-16 PO Daily 1 ity of tablet 00:00: hr (range: [place] 00 30 min - 4 Medical hrs) Branch before sexual activity as needed metFORMIN 2016-09 Yes [id number] 1000mg Take 2 Univers 500 mg 0-16 tablets by ity of tablet 00:00: mouth 2 [place] 00 (two) Medical times Branch daily with meals. hydroCHLORO 2016-09 Yes [id number] 25mg Take 1 Univers thiazide 25 0-16 tablet by ity of mg tablet 00:00: mouth [place] 00 daily. Medical Branch lisinopril 2016-09 Yes [id number] 5mg Take 1 U nivers 5 mg tablet 0-16 tablet by ity of 00:00: mouth [place] 00 daily. Medical Branch amLODIPine 2016-09 Yes [id number] 10mg Take 1 U nivers 10 mg 0-16 tablet by ity of tablet 00:00: mouth [place] 00 daily. Medical Branch insulin 2016-09 Yes [id number] 40U inject 40 U nivers glargine 0-16 Units ity of 100 unit/mL 00:00: under the [place] injection 00 skin at Medical bedtime. Branch blood sugar 2016-09 Yes [id number] Use TID, Univers diagnostic 0-16 DX E11.9 ity o f strip 00:00: ([place] [address] upon [facility] approval) lancets-blo 2016-09 Yes [id number] 1{each} 1 Each 2 Univers od glucose 0-16 (two) ity of strips 30 00:00: times [place] gauge Cmpk 00 daily. Medical Branch Blood-Gluco 2016-09 Yes [id number] Use TID, Univers se Meter 0-16 DX E11.9 ity of Kit 00:00: ([place] [address] upon [facility] Branch approval) sildenafil 2016-09 Yes [id number] Take 1 Tab Univers 25 mg 0-16 PO Daily 1 ity of tablet 00:00: hr (range: [place] 00 30 min - 4 Medical hrs) Branch before sexual activity as needed metFORMIN 2016-09 Yes [id number] 1000mg Take 2 Univers 500 mg 0-16 tablets by ity of tablet 00:00: mouth 2 [place] 00 (two) Medical times Branch daily with meals. hydroCHLORO 2016-09 Yes [id number] 25mg Take 1 Univers thiazide 25 0-16 tablet by ity of mg tablet 00:00: mouth [place] 00 daily. Medical Branch lisinopril 2016-09 Yes [id number] 5mg Take 1 U nivers 5 mg tablet 0-16 tablet by ity of 00:00: mouth [place] 00 daily. Medical Branch amLODIPine 2016-09 Yes [id number] 10mg Take 1 U nivers 10 mg 0-16 tablet by ity of tablet 00:00: mouth [place] 00 daily. Medical Branch insulin 2016-09 Yes [id number] 40U inject 40 U nivers glargine 0-16 Units ity of 100 unit/mL 00:00: under the [place] injection 00 skin at Medical bedtime. Branch blood sugar 2016-09 Yes [id number] Use TID, Univers diagnostic 0-16 DX E11.9 ity o f strip 00:00: ([address] approval) lancets-blo 2016-09 Yes [id number] 1{each} 1 Each 2 Univers od glucose 0-16 (two) ity of strips 30 00:00: times [place] gauge Cmpk 00 daily. Medical Branch Blood-Gluco 2016-09 Yes [id number] Use TID, Univers se Meter 0-16 DX E11.9 ity of Kit 00:00: ([address] approval) sildenafil 2016-09 Yes [id number] Take 1 Tab Univers 25 mg 0-16 PO Daily 1 ity of tablet 00:00: hr (range: [place] 00 30 min - 4 Medical hrs) Branch before sexual activity as needed metFORMIN 2016-09 Yes [id number] 1000mg Take 2 Univers 500 mg 0-16 tablets by ity of tablet 00:00: mouth 2 [place] 00 (two) Medical times Branch daily with meals. hydroCHLORO 2016-09 Yes [id number] 25mg Take 1 Univers thiazide 25 0-16 tablet by ity of mg tablet 00:00: mouth [place] 00 daily. Medical Branch lisinopril 2016-09 Yes [id number] 5mg Take 1 U nivers 5 mg tablet 0-16 tablet by ity of 00:00: mouth [place] 00 daily. Medical Branch Immunizations Ordered Filled Immunization Date Status Comments [facility] e Immunization Name Name Influenza Virus 2020-06-11 Completed Universit y of Vaccine 00:00:00 [facility] Influenza Virus 2020-06-11 Completed Universit y of Vaccine 00:00:00 [facility] Influenza Virus 2020-06-11 Completed Universit y of Vaccine 00:00:00 [facility] Influenza Virus 2020-06-11 Completed Universit y of Vaccine 00:00:00 [facility] Influenza Virus 2020-06-11 Completed Universit y of Vaccine 00:00:00 [facility] Influenza Virus 2020-06-11 Completed Universit y of Vaccine 00:00:00 [facility] Influenza Virus 2020-06-11 Completed Universit y of Vaccine 00:00:00 [facility] Influenza Virus 2020-06-11 Completed Universit y of Vaccine 00:00:00 [facility] Influenza Virus 2020-06-11 Completed Universit y of Vaccine 00:00:00 [facility] Influenza Virus 2020-06-11 Completed Universit y of Vaccine 00:00:00 [facility] Influenza Virus 2020-06-11 Completed Universit y of Vaccine 00:00:00 [facility] Influenza Virus 2020-06-11 Completed Universit y of Vaccine 00:00:00 [facility] Pneumococcal 2016-11-24 Completed University o f Polysaccharide, 00:00:00 [place] [facility] PPSV23 (PNEUMOVAX) [place] Influenza Virus 2016-11-24 Completed Universit y of Vaccine Quad IM 3+ 00:00:00 [facility] Pneumococcal 2016-11-24 Completed University o f Polysaccharide, 00:00:00 [place] [facility] PPSV23 (PNEUMOVAX) [place] Influenza Virus 2016-11-24 Completed Universit y of Vaccine Quad IM 3+ 00:00:00 [facility] Pneumococcal 2016-11-24 Completed University o f Polysaccharide, 00:00:00 [place] [facility] PPSV23 (PNEUMOVAX) Branch Influenza Virus 2016-11-24 Completed Universit y of Vaccine Quad IM 3+ 00:00:00 [facility] Pneumococcal 2016-11-24 Completed University o f Polysaccharide, 00:00:00 [place] [facility] PPSV23 (PNEUMOVAX) Branch Influenza Virus 2016-11-24 Completed Universit y of Vaccine Quad IM 3+ 00:00:00 [facility] Pneumococcal 2016-11-24 Completed University o f Polysaccharide, 00:00:00 [place] [facility] PPSV23 (PNEUMOVAX) [place] Influenza Virus 2016-11-24 Completed Universit y of Vaccine Quad IM 3+ 00:00:00 [facility] Pneumococcal 2016-11-24 Completed University o f Polysaccharide, 00:00:00 [facility] ical PPSV23 (PNEUMOVAX) Branch Influenza Virus 2016-11-24 Completed Universit y of Vaccine Quad IM 3+ 00:00:00 [facility] Pneumococcal 2016-11-24 Completed University o f Polysaccharide, 00:00:00 [place] [facility] PPSV23 (PNEUMOVAX) Branch Influenza Virus 2016-11-24 Completed Universit y of Vaccine Quad IM 3+ 00:00:00 [facility] Pneumococcal 2016-11-24 Completed University o f Polysaccharide, 00:00:00 [place] [facility] PPSV23 (PNEUMOVAX) Branch Influenza Virus 2016-11-24 Completed Universit y of Vaccine Quad IM 3+ 00:00:00 [facility] Pneumococcal 2016-11-24 Completed University o f Polysaccharide, 00:00:00 [place] [facility] PPSV23 (PNEUMOVAX) Branch Influenza Virus 2016-11-24 Completed Universit y of Vaccine Quad IM 3+ 00:00:00 [facility] Pneumococcal 2016-11-24 Completed University o f Polysaccharide, 00:00:00 [place] [facility] PPSV23 (PNEUMOVAX) Branch Influenza Virus 2016-11-24 Completed Universit y of Vaccine Quad IM 3+ 00:00:00 [facility] Pneumococcal 2016-11-24 Completed University o f Polysaccharide, 00:00:00 [place] [facility] PPSV23 (PNEUMOVAX) Branch Influenza Virus 2016-11-24 Completed Universit y of Vaccine Quad IM 3+ 00:00:00 [facility] Pneumococcal 2016-11-24 Completed University o f Polysaccharide, 00:00:00 [place] [facility] PPSV23 (PNEUMOVAX) Branch Influenza Virus 2016-11-24 Completed Universit y of Vaccine Quad IM 3+ 00:00:00 [facility] Pneumococcal 2016-11-24 Completed University o f Polysaccharide, 00:00:00 [place] [facility] PPSV23 (PNEUMOVAX) Branch Influenza Virus 2016-11-24 Completed Universit y of Vaccine Quad IM 3+ 00:00:00 [facility] Td 2016-11-22 Completed University of 00:00:00 [facility] Td 2016-11-22 Completed University of 00:00:00 [facility] Td 2016-11-22 Completed University of 00:00:00 [facility] Td 2016-11-22 Completed University of 00:00:00 [facility] Td 2016-11-22 Completed University of 00:00:00 [place] [facility] Td 2016-11-22 Completed University of 00:00:00 [place] [facility] Td 2016-11-22 Completed University of 00:00:00 [place] [facility] Td 2016-11-22 Completed University of 00:00:00 [place] [facility] Td 2016-11-22 Completed University of 00:00:00 [place] [facility] Td 2016-11-22 Completed University of 00:00:00 [place] [facility] Td 2016-11-22 Completed University of 00:00:00 [place] [facility] Td 2016-11-22 Completed University of 00:00:00 [place] [facility] Td 2016-11-22 Completed University of 00:00:00 [facility] Branch Vital Signs Vital Name Observation Time Observation Value Comments Source Body temperature 2020-10-20 16:33:00 36.67 Makenzie [facility] height 2020-10-20 16:33:00 180.3 cm Universi ty of [facility] Body weight 2020-10-20 16:33:00 121.11 kg Universi ty of [facility] BMI 2020-10-20 16:33:00 37.24 kg/m2 Universi ty of [facility] Body temperature 2020-09-29 15:34:00 36.44 Makenzie [facility] ersity [facility] Body weight 2020-09-29 15:34:00 121.473 kg Universi ty of [facility] BMI 2020-09-29 15:34:00 37.35 kg/m2 Universi ty [facility] Branch Systolic blood 2020-08-11 19:17:00 177 mm[Hg] Univer sity of pressure [facility] Diastolic blood 2020-08-11 19:17:00 101 mm[Hg] Unive rsity of pressure [facility] Heart rate 2020-08-11 19:17:00 110 /min Universi ty [facility] Body temperature 2020-08-11 19:15:00 36.44 Makenzie [facility] Respiratory rate 2020-08-11 19:15:00 16 /min [facility] ersity [facility] Body height 2020-08-11 19:15:00 180.3 cm Universi ty of [facility] Body weight 2020-08-11 19:15:00 121.473 kg Universi ty of [facility] Branch BMI 2020-08-11 19:15:00 37.35 kg/m2 [facility] Medical Branch Procedures Procedure Date / Time Performed Performing Clinician Sourc e XR FOOT 3+ VW RIGHT 2020-09-29 16:15:00 Kaye Gonsales [facility] Branch ASSIGNMENT OF BENEFITS 2020-08-11 19:07:32 Doctor Unassigned, No [facility] Center Name Medical Branch Encounters Start End Encounter Admission Attending Care Care Encounter Source Date/Time Date/Time Type Type Clinicians Facility Department ID 2021-05-18 2021-05-18 Outpatient SANDRA ERNANDEZ [id number] Sandra 10:15:00 10:15:00 MAGALIS Seybol d 2021-05-15 2021-05-15 Outpatient SANDRA ERNANDEZ [id number] Sandra 00:00:00 00:00:00 MAGALIS Seybol d 2021-04-28 2021-04-28 Outpatient SANDRA ERNANDEZ [id number] Sandra 00:00:00 00:00:00 MAGALIS Seybol d 2021-04-27 2021-04-27 Outpatient SANDRA ERNANDEZ [id number] Sandra 00:00:00 00:00:00 MAGALIS Seybol d 2021-04-22 2021-04-22 Outpatient SANDRA ERNANDEZ [id number] Sandra 00:00:00 00:00:00 MAGALIS Seybol d 2021-04-20 2021-04-20 Outpatient SANDRA ERNANDEZ [id number] Sandra 00:00:00 00:00:00 MAGALIS Seybol d 2021-04-17 2021-04-17 Outpatient SANDRA ERNANDEZ [id number] Sandra 00:00:00 00:00:00 MAGALIS Seybol d 2021-04-17 2021-04-17 Outpatient MARITZA LEWIS [id number] Sandra 00:00:00 00:00:00 Seybol d 2021-04-16 2021-04-16 Outpatient SANDRA ERNANDEZ [id number] Sandra 08:30:00 08:30:00 MAGALIS Seybol d 2021-04-16 2021-04-16 Outpatient YIN28-CFG SANDRA MCDANIELS [id number] Sandra 08:20:00 08:20:00 Seybol d 2021-04-06 2021-04-06 Outpatient JENY SANDRA MCDANIELS [id number] Sandra 00:00:00 00:00:00 ROSALBA Seybol d 2021-04-04 2021-04-04 Outpatient JENY SANDRA MCDANIELS [id number] Sandra 00:00:00 00:00:00 ROSALBA Seybol d 2020-12-02 2020-12-02 Patient [facility] [id number] Univers 00:00:00 00:00:00 Outreach [facility] [id number] i [facility] [id number] [facility] [place] [phone] Co kylah [address] [place] [address] 2020-11-10 2020-11-10 [facility] [id number] Univers 09:45:00 09:45:00 [facility] [id number] [facility] [place] [facility] 2020-11-10 2020-11-10 [facility] [id number] Univers 09:45:00 09:45:00 [facility] [place] [facility] 2020-10-31 2020-10-31 Telephone [facility] [id number] Univers 00:00:00 00:00:00 Rebecca SPECIALTY [id number] ity of [id number] [place] [phone] Co selinashanti DONOHUE [address] [place] [address] 2020-10-20 2020-10-20 [facility] [id number] Univers 10:05:41 13:50:58 Visit Rebecca SPECIALTY [id number] ity [id number] [phone] Co kylah DONOHUE [address] [facility] 2020-10-20 2020-10-20 [facility] [id number] Univers 09:45:00 09:45:00 KAYE [id number] ity [facility] 2020-10-20 2020-10-20 Outpatient R ARIANNA [facility] [id number] Univers 09:45:00 09:45:00 KAYE ity of [facility] 2020-10-13 2020-10-13 [facility] [id number] Univers 10:30:00 10:30:00 REBECCA [id number] ity [facility] 2020-10-13 2020-10-13 Outpatient R JEISON [facility] [id number] Univers 10:30:00 10:30:00 REBECCA ity [facility] 2020-09-29 2020-09-29 [facility] [id number] Univers 10:03:46 23:59:00 Encounter Kaye PRIMARY [id number] ity of A [place] [id number] [place] [phone] Co dical 807 [place] 2020-09-29 2020-09-29 Office [facility] [id number] Univers 09:27:17 10:36:22 Visit Kaye PRIMARY [id number] ity of [place] [id number] [phone] Co dical 198 [place] 2020-09-29 2020-09-29 [facility] [id number] Univers 09:15:00 09:15:00 KAYE [id number] ity [facility] 2020-09-29 2020-09-29 [facility] [id number] Univers 09:15:00 09:15:00 KAYE ity [facility] 2020-09-08 2020-09-08 Outpatient R [facility] [id number] Univers 14:00:00 14:00:00 [id number] ity [facility] 2020-08-11 2020-08-11 Study Coordinator [facility] [id number] Univers 14:45:44 15:00:44 Visit Teresa Edwards [facility] [id number] ity of CL[id number] [phone] [facility] 316 Branch 2020-08-11 2020-08-11 Office Nabila Collins [id number] Univers 13:08:19 14:38:25 Visit Teresa Edwards [facility] [id number] ity of CL[id number] [id number] [facility] 089 Branch 2020-08-11 2020-08-11 Outpatient [facility] [id number] Univers 13:00:00 13:00:00 [id number] ity of [facility] 2020-08-11 2020-08-11 Outpatient R [facility] [id number] Univers 13:00:00 13:00:00 ity of [facility] 2020-08-11 2020-08-11 Orders Doctor MALISSA [id number] Univers 00:00:00 00:00:00 Only Unassigned, FARHAN [id number] ity of [place] [facility] [id number] [place] as [phone] [facility] 009 [place] Results Test Description Test Time Test Comments Results Result [facility] e Comments XR FOOT 3+ VW 2020-09-19 1. ?Neuropathic Unive rsity of RIGHT 1 right mid foot. 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 There is a neuropathic joint throughout mid foot. ?There is no foreignbody. No definite soft tissue gas. There is pronounced soft tissueswelling. There is a remote fracture proximal fifth phalanx. [facility], [facility] Results Inft User - 09/29/2020 3:00 PM CSTHISTORY: Right foot charcot and edema Meet Valdivia is a 50 year old malewho presents with right foot charcot, edema, plantar open woundCOMPARISON: NoneFINDINGS:3 views of the right foot show prior second digit amputation.There is a neuropathic joint throughout mid foot. There is no foreignbody. No definite soft tissue gas. There is pronounced soft tissueswelling.Ther e is a remote fracture proximal fifth phalanx.IMPRESSION1 . Neuropathic right mid foot.RL: 1105
== END 2021-07-30 23:07 | disposition home or self-care (01) ==
LOC: ER 16:47
DX: N39.0 Urinary tract infection, site not specified (principal); L03.115 Cellulitis of right lower limb; E11.9 Type 2 diabetes mellitus without complications; I10 Essential (primary) hypertension
CPT/HCPCS: 87088; 85025; 87086; 80048; 36415; 80076; 83690; 76377; 74176; 96374; 99284; J7030; 81003; 81015

== ENCOUNTER 2021-09-13 07:20 | Inpatient (IN) | payer BC ==
--- OUTSIDE RECORDS SUMMARY | 2021-09-13 07:30 | XMS REPORT | Continuity of Care Document ---
:1970 Author Organization [facility] t Address [address] [place] [address] Care Team Providers Name Role Phone Shelbi ERNANDEZ Attending Clinician Unavailable Shahbaz LEWIS Attending Clinician Unavailable [id number] Attending Clinician Unavailable JENY Attending Clinician Unavailable Rachid Saavedra DO Attending Clinician Kathie GONSALES Attending Clinician Unavailable Jeison GONZÁLES Attending Clinician JEISON Attending Clinician Unavailable Kathie Gonsales DPM Attending Clinician [facility] Attending Clinician Unavailable Grace GONZALEZ Attending Clinician Dennis GONZÁLES Attending Clinician Doctor Unassigned, Name Attending Clinician Unavailable Payers Payer Name Policy Type Policy Number Effective Date Expiration Date S juani BCBS 2 [id number] 2020 00:00:00 Problems Condition Condition Condition Status Onset Resolution Last Treating Co mments Source Name Details Category Date Date Treatment Clinician Date 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 00:00: [place] deformity deformity 00 [facility] Diabetic Diabetic Disease Active Unive rs [...] (BMI 3-07 ity of 30-39.9) 30-39.9) 00:00: [place] 00 [facility] Cellulitis Cellulitis Disease Active U nivers of foot, of foot, 3-06 ity of right right 00:00: [address] Essential Essential Disease Active 2014-09 Uni vers hypertensi hypertensi 0-06 it y of on on 00:00: [place] [address] Medical Branch Erectile Erectile Disease Active 2014-09 [...] Active Univers ALLERGIE Class ity of S [facility] Social History Social Habit Start Date Stop Date Quantity Comments Source Exposure to Not sure [facility] SARS-CoV-2 (event) [facility] Cigarettes smoked 2020-10-20 2020-10-20 Univers ity of current (pack per 00:00:00 00:00:00 [facility] ) - Reported [place] Cigarette 2020-10-20 2020-10-20 University of pack-years 00:00:00 00:00:00 [facility] Tobacco use and 2020-10-20 2020-10-20 Never used Universit y of exposure 00:00:00 00:00:00 [facility] Alcohol intake 2020-10-20 2020-10-20 Current drinker Unive rsity of 00:00:00 00:00:00 of alcohol [facility] (finding) [place] Alcohol Comment 2017-06-13 2017-06-13 4-6 beers a day Univ ersity of 00:00:00 00:00:00 [facility] History of tobacco 2013-08-30 Cigarette Smoker University of use 00:00:00 [facility] Sex [birth year] Universit y of 00:00:00 00:00:00 [facility] Smoking Status Start Date Stop Date Source Former smoker 2020-10-20 00:00:00 2020-10-20 00:00:00 Universi ty of [facility] Medications Ordered Filled Start Stop Current Ordering [...] (FARXIGA) 5 19:20: [place] mg tablet 18 [facility] NaCl 0.9% 2016-09 Yes 10mL Univers (NS) 0-18 ity of injection 17:12: [place] 10 mL 06 [facility] NaCl 0.9% 2016-09 Yes 10mL Univers (NS) 0-18 ity of injection 17:12: [place] [address] [place] [address] NaCl 0.9% 2016-09 Yes 10mL Univers (NS) 0-18 ity of injection 17:12: [place] 10 mL 06 [facility] NaCl 0.9% 2016-09 Yes 10mL Univers (NS) 0-18 ity of injection 17:12: [place] [address] [place] [address] NaCl 0.9% 2016-09 Yes 10mL Univers (NS) 0-18 ity of injection 17:12: [place] 10 mL 06 [facility] NaCl 0.9% 2016-09 Yes 10mL Univers (NS) 0-18 ity of injection 17:12: [place] [address] [place] [address] NaCl 0.9% 2016-09 Yes 10mL Univers (NS) 0-18 ity of injection 17:12: [place] 10 mL 06 [facility] NaCl 0.9% 2016-09 Yes 10mL Univers (NS) 0-18 ity of injection 17:12: [place] [address] [place] [address] NaCl 0.9% 2016-09 Yes 10mL Univers (NS) 0-18 ity of injection 17:12: [place] 10 mL 06 [facility] NaCl 0.9% 2016-09 Yes 10mL Univers (NS) 0-18 ity of injection 17:12: [place] [address] [place] [address] NaCl 0.9% 2016-09 Yes 10mL Univers (NS) 0-18 ity of injection 17:12: [place] [address] [place] [address] NaCl 0.9% 2016-09 Yes 10mL Univers (NS) 0-18 ity of injection 17:12: [place] [address] [place] [address] NaCl 0.9% 2016-09 Yes 10mL Univers (NS) 0-18 ity of injection 17:12: [place] [address] [place] [address] amLODIPine 2016-09 Yes [id number] 10mg Take 1 U nivers 10 mg 0-16 tablet by ity of tablet 00:00: mouth [place] 00 daily. Medical Branch insulin 2016-09 Yes [id number] 40U inject 40 U nivers glargine 0-16 Units ity of 100 unit/mL 00:00: [place] injection 00 skin at Medical bedtime. Branch blood sugar 2016-09 Yes [id number] Use TID, Univers diagnostic 0-16 DX E11.9 ity o f strip 00:00: ([facility] upon [facility] Branch approval) lancets-blo 2016-09 Yes [id number] 1{each} 1 Each 2 Univers od glucose 0-16 (two) ity of strips 30 00:00: times [place] gauge Cmpk 00 daily. Medical Branch Blood-Gluco 2016-09 Yes [id number] Use TID, Univers se Meter 0-16 DX E11.9 ity of Kit 00:00: ([facility] upon [facility] approval) sildenafil 2016-09 Yes [id number] Take 1 Tab Univers 25 mg 0-16 PO Daily 1 ity of tablet 00:00: hr (range: [place] 00 30 min - 4 Medical hrs) Branch before sexual activity as needed metFORMIN 2016-09 Yes [id number] 1000mg Take 2 Univers 500 mg 0-16 tablets by ity of tablet 00:00: mouth 2 [place] 00 (two) Medical times Branch daily with meals. hydroCHLORO 2016-09 Yes [id number] 25mg Take 1 Univers thiazide 25 0-16 tablet by ity of mg tablet 00:00: mouth [place] 00 daily. Medical Branch lisinopril 2016-09 Yes [id number] 5mg Take 1 U nivers 5 mg tablet 0-16 tablet by ity of 00:00: mouth [place] 00 daily. Medical Branch amLODIPine 2016-09 Yes [id number] 10mg Take 1 U nivers 10 mg 0-16 tablet by ity of tablet 00:00: mouth [place] 00 daily. Medical Branch insulin 2016-09 Yes [id number] 40U inject 40 U nivers glargine 0-16 Units ity of 100 unit/mL 00:00: [place] injection 00 skin at Medical bedtime. Branch blood sugar 2016-09 Yes [id number] Use TID, Univers diagnostic 0-16 DX E11.9 ity o f strip 00:00: ([facility] upon [facility] Branch approval) lancets-blo 2016-09 Yes [id number] 1{each} 1 Each 2 Univers od glucose 0-16 (two) ity of strips 30 00:00: times [place] gauge Cmpk 00 daily. Medical Branch Blood-Gluco 2016-09 Yes [id number] Use TID, Univers se Meter 0-16 DX E11.9 ity of Kit 00:00: ([place] [address] upon [facility] Branch approval) sildenafil 2016-09 Yes [id number] Take 1 Tab Univers 25 mg 0-16 PO Daily 1 ity of tablet 00:00: hr (range: [place] 00 30 min - 4 Medical hrs) Branch before sexual activity as needed metFORMIN 2016-09 Yes [id number] 1000mg Take 2 Univers 500 mg 0-16 tablets by ity of tablet 00:00: mouth 2 [place] 00 (two) Medical times Branch daily with meals. hydroCHLORO 2016-09 Yes [id number] 25mg Take 1 Univers thiazide 25 0-16 tablet by ity of mg tablet 00:00: mouth [place] 00 daily. Medical Branch lisinopril 2016-09 Yes [id number] 5mg Take 1 U nivers 5 mg tablet 0-16 tablet by ity of 00:00: mouth [place] 00 daily. Medical Branch amLODIPine 2016-09 Yes [id number] 10mg Take 1 U nivers 10 mg 0-16 tablet by ity of tablet 00:00: mouth [place] 00 daily. Medical Branch insulin 2016-09 Yes [id number] 40U inject 40 U nivers glargine 0-16 Units ity of 100 unit/mL 00:00: [place] injection 00 skin at Medical bedtime. Branch blood sugar 2016-09 Yes [id number] Use TID, Univers diagnostic 0-16 DX E11.9 ity o f strip 00:00: ([facility] upon [facility] approval) lancets-blo 2016-09 Yes [id number] 1{each} 1 Each 2 Univers od glucose 0-16 (two) ity of strips 30 00:00: times [place] gauge Cmpk 00 daily. Medical Branch Blood-Gluco 2016-09 Yes [id number] Use TID, Univers se Meter 0-16 DX E11.9 ity of Kit 00:00: ([place] [address] upon [facility] Branch approval) sildenafil 2016-09 Yes [id number] Take 1 Tab Univers 25 mg 0-16 PO Daily 1 ity of tablet 00:00: hr (range: [place] 00 30 min - 4 Medical hrs) Branch before sexual activity as needed metFORMIN 2016-09 Yes [id number] 1000mg Take 2 Univers 500 mg 0-16 tablets by ity of tablet 00:00: mouth 2 [place] 00 (two) Medical times Branch daily with meals. hydroCHLORO 2016-09 Yes [id number] 25mg Take 1 Univers thiazide 25 0-16 tablet by ity of mg tablet 00:00: mouth [place] 00 daily. Medical Branch lisinopril 2016-09 Yes [id number] 5mg Take 1 U nivers 5 mg tablet 0-16 tablet by ity of 00:00: mouth [place] 00 daily. Medical Branch amLODIPine 2016-09 Yes [id number] 10mg Take 1 U nivers 10 mg 0-16 tablet by ity of tablet 00:00: mouth [place] 00 daily. Medical Branch insulin 2016-09 Yes [id number] 40U inject 40 U nivers glargine 0-16 Units ity of 100 unit/mL 00:00: [place] injection 00 skin at Medical bedtime. Branch blood sugar 2016-09 Yes [id number] Use TID, Univers diagnostic 0-16 DX E11.9 ity o f strip 00:00: ([address] approval) lancets-blo 2016-09 Yes [id number] 1{each} 1 Each 2 Univers od glucose 0-16 (two) ity of strips 30 00:00: times [place] gauge Cmpk 00 daily. Medical Branch Blood-Gluco 2016-09 Yes [id number] Use TID, Univers se Meter 0-16 DX E11.9 ity of Kit 00:00: ([address] approval) sildenafil 2016-09 Yes [id number] Take 1 Tab Univers 25 mg 0-16 PO Daily 1 ity of tablet 00:00: hr (range: [place] 00 30 min - 4 Medical hrs) Branch before sexual activity as needed metFORMIN 2016-09 Yes [id number] 1000mg Take 2 Univers 500 mg 0-16 tablets by ity of tablet 00:00: mouth 2 [place] 00 (two) Medical times Branch daily with meals. hydroCHLORO 2016-09 Yes [id number] 25mg Take 1 Univers thiazide 25 0-16 tablet by ity of mg tablet 00:00: mouth [place] 00 daily. Medical Branch lisinopril 2016-09 Yes [id number] 5mg Take 1 U nivers 5 mg tablet 0-16 tablet by ity of 00:00: mouth [place] 00 daily. Medical Branch amLODIPine 2016-09 Yes [id number] 10mg Take 1 U nivers 10 mg 0-16 tablet by ity of tablet 00:00: mouth [place] 00 daily. Medical Branch insulin 2016-09 Yes [id number] 40U inject 40 U nivers glargine 0-16 Units ity of 100 unit/mL 00:00: [place] injection 00 skin at Medical bedtime. Branch blood sugar 2016-09 Yes [id number] Use TID, Univers diagnostic 0-16 DX E11.9 ity o f strip 00:00: ([address] approval) lancets-blo 2016-09 Yes [id number] 1{each} 1 Each 2 Univers od glucose 0-16 (two) ity of strips 30 00:00: times [place] gauge Cmpk 00 daily. Medical Branch sildenafil 2016-09 Yes [id number] Take 1 Tab Univers 25 mg 0-16 PO Daily 1 ity of tablet 00:00: hr (range: [place] 00 30 min - 4 Medical hrs) Branch before sexual activity as needed Blood-Gluco 2016-09 Yes [id number] Use TID, Univers se Meter 0-16 DX E11.9 ity of Kit 00:00: ([address] approval) sildenafil 2016-09 Yes [id number] Take 1 Tab Univers 25 mg 0-16 PO Daily 1 ity of tablet 00:00: hr (range: [place] 00 30 min - 4 Medical hrs) Branch before sexual activity as needed metFORMIN 2016-09 Yes [id number] 1000mg Take 2 Univers 500 mg 0-16 tablets by ity of tablet 00:00: mouth 2 [place] 00 (two) Medical times Branch daily with meals. metFORMIN 2016-09 Yes [id number] 1000mg Take 2 Univers 500 mg 0-16 tablets by ity of tablet 00:00: mouth 2 [place] 00 (two) Medical times Branch daily with meals. hydroCHLORO 2016-09 Yes [id number] 25mg Take 1 Univers thiazide 25 0-16 tablet by ity of mg tablet 00:00: mouth [place] 00 daily. Medical Branch lisinopril 2016-09 Yes [id number] 5mg Take 1 U nivers 5 mg tablet 0-16 tablet by ity of 00:00: mouth [place] 00 daily. Medical Branch amLODIPine 2016-09 Yes [id number] 10mg Take 1 U nivers 10 mg 0-16 tablet by ity of tablet 00:00: mouth [place] 00 daily. Medical Branch insulin 2016-09 Yes [id number] 40U inject 40 U nivers glargine 0-16 Units ity of 100 unit/mL 00:00: [place] injection 00 skin at Medical bedtime. Branch blood sugar 2016-09 Yes [id number] Use TID, Univers diagnostic 0-16 DX E11.9 ity o f strip 00:00: ([place] [address] upon [facility] insurance Branch approval) lancets-blo 2016-09 Yes [id number] 1{each} 1 Each 2 Univers od glucose 0-16 (two) ity of strips 30 00:00: times [place] gauge Cmpk 00 daily. Medical Branch Blood-Gluco 2016-09 Yes [id number] Use TID, Univers se Meter 0-16 DX E11.9 ity of Kit 00:00: ([place] [address] upon [facility] Branch approval) hydroCHLORO 2016-09 Yes [id number] 25mg Take 1 Univers thiazide 25 0-16 tablet by ity of mg tablet 00:00: mouth [place] 00 daily. Medical Branch sildenafil 2016-09 Yes [id number] Take 1 Tab Univers 25 mg 0-16 PO Daily 1 ity of tablet 00:00: hr (range: [place] 00 30 min - 4 Medical hrs) Branch before sexual activity as needed metFORMIN 2016-09 Yes [id number] 1000mg Take 2 Univers 500 mg 0-16 tablets by ity of tablet 00:00: mouth 2 [place] 00 (two) Medical times Branch daily with meals. hydroCHLORO 2016-09 Yes [id number] 25mg Take 1 Univers thiazide 25 0-16 tablet by ity of mg tablet 00:00: mouth [place] 00 daily. Medical Branch lisinopril 2016-09 Yes [id number] 5mg Take 1 U nivers 5 mg tablet 0-16 tablet by ity of 00:00: mouth [place] 00 daily. Medical Branch lisinopril 2016-09 Yes [id number] 5mg Take 1 U nivers 5 mg tablet 0-16 tablet by ity of 00:00: mouth [place] 00 daily. Medical Branch amLODIPine 2016-09 Yes [id number] 10mg Take 1 U nivers 10 mg 0-16 tablet by ity of tablet 00:00: mouth [place] 00 daily. Medical Branch insulin 2016-09 Yes [id number] 40U inject 40 U nivers glargine 0-16 Units ity of 100 unit/mL 00:00: [place] injection 00 skin at Medical bedtime. Branch blood sugar 2016-09 Yes [id number] Use TID, Univers diagnostic 0-16 DX E11.9 ity o f strip 00:00: ([place] [address] upon [facility] Branch approval) lancets-blo 2016-09 Yes [id number] 1{each} 1 Each 2 Univers od glucose 0-16 (two) ity of strips 30 00:00: times [place] gauge Cmpk 00 daily. Medical Branch Blood-Gluco 2016-09 Yes [id number] Use TID, Univers se Meter 0-16 DX E11.9 ity of Kit 00:00: ([facility] 00 upon [facility] Branch approval) amLODIPine 2016-09 Yes [id number] 10mg Take 1 U nivers 10 mg 0-16 tablet by ity of tablet 00:00: mouth [place] 00 daily. Medical Branch sildenafil 2016-09 Yes [id number] Take 1 Tab Univers 25 mg 0-16 PO Daily 1 ity of tablet 00:00: hr (range: [place] 00 30 min - 4 Medical hrs) Branch before sexual activity as needed metFORMIN 2016-09 Yes [id number] 1000mg Take 2 Univers 500 mg 0-16 tablets by ity of tablet 00:00: mouth 2 [place] 00 (two) Medical times Branch daily with meals. hydroCHLORO 2016-09 Yes [id number] 25mg Take 1 Univers thiazide 25 0-16 tablet by ity of mg tablet 00:00: mouth [place] 00 daily. Medical Branch lisinopril 2016-09 Yes [id number] 5mg Take 1 U nivers 5 mg tablet 0-16 tablet by ity of 00:00: mouth [place] 00 daily. Medical Branch amLODIPine 2016-09 Yes [id number] 10mg Take 1 U nivers 10 mg 0-16 tablet by ity of tablet 00:00: mouth [place] 00 daily. Medical Branch insulin 2016-09 Yes [id number] 40U inject 40 U nivers glargine 0-16 Units ity of 100 unit/mL 00:00: [place] injection 00 skin at Medical bedtime. Branch insulin 2016-09 Yes [id number] 40U inject 40 U nivers glargine 0-16 Units ity of 100 unit/mL 00:00: [place] injection 00 skin at Medical bedtime. Branch blood sugar 2016-09 Yes [id number] Use TID, Univers diagnostic 0-16 DX E11.9 ity o f strip 00:00: ([address] approval) lancets-blo 2016-09 Yes [id number] 1{each} 1 Each 2 Univers od glucose 0-16 (two) ity of strips 30 00:00: times [place] gauge Cmpk 00 daily. Medical Branch Blood-Gluco 2016-09 Yes [id number] Use TID, Univers se Meter 0-16 DX E11.9 ity of Kit 00:00: ([address] approval) blood sugar 2016-09 Yes [id number] Use TID, Univers diagnostic 0-16 DX E11.9 ity o f strip 00:00: ([address] approval) sildenafil 2016-09 Yes [id number] Take 1 Tab Univers 25 mg 0-16 PO Daily 1 ity of tablet 00:00: hr (range: [place] 00 30 min - 4 Medical hrs) Branch before sexual activity as needed metFORMIN 2016-09 Yes [id number] 1000mg Take 2 Univers 500 mg 0-16 tablets by ity of tablet 00:00: mouth 2 [place] 00 (two) Medical times Branch daily with meals. hydroCHLORO 2016-09 Yes [id number] 25mg Take 1 Univers thiazide 25 0-16 tablet by ity of mg tablet 00:00: mouth [place] 00 daily. Medical Branch lisinopril 2016-09 Yes [id number] 5mg Take 1 U nivers 5 mg tablet 0-16 tablet by ity of 00:00: mouth [place] 00 daily. Medical Branch amLODIPine 2016-09 Yes [id number] 10mg Take 1 U nivers 10 mg 0-16 tablet by ity of tablet 00:00: mouth [place] 00 daily. Medical Branch insulin 2016-09 Yes [id number] 40U inject 40 U nivers glargine 0-16 Units ity of 100 unit/mL 00:00: under the [place] injection 00 skin at Medical bedtime. Branch blood sugar 2016-09 Yes [id number] Use TID, Univers diagnostic 0-16 DX E11.9 ity o f strip 00:00: ([address] approval) lancets-blo 2016-09 Yes [id number] 1{each} 1 Each 2 Univers od glucose 0-16 (two) ity of strips 30 00:00: times [place] gauge Cmpk 00 daily. Medical Branch Blood-Gluco 2016-09 Yes [id number] Use TID, Univers se Meter 0-16 DX E11.9 ity of Kit 00:00: ([facility] upon [facility] approval) lancets-blo 2016-09 Yes [id number] 1{each} 1 Each 2 Univers od glucose 0-16 (two) ity of strips 30 00:00: times [place] gauge Cmpk 00 daily. Medical Branch Blood-Gluco 2016-09 Yes [id number] Use TID, Univers se Meter 0-16 DX E11.9 ity of Kit 00:00: ([facility] upon [facility] approval) sildenafil 2016-09 Yes [id number] Take 1 Tab Univers 25 mg 0-16 PO Daily 1 ity of tablet 00:00: hr (range: [place] 00 30 min - 4 Medical hrs) Branch before sexual activity as needed metFORMIN 2016-09 Yes [id number] 1000mg Take 2 Univers 500 mg 0-16 tablets by ity of tablet 00:00: mouth 2 [place] 00 (two) Medical times Branch daily with meals. hydroCHLORO 2016-09 Yes [id number] 25mg Take 1 Univers thiazide 25 0-16 tablet by ity of mg tablet 00:00: mouth [place] 00 daily. Medical Branch lisinopril 2016-09 Yes [id number] 5mg Take 1 U nivers 5 mg tablet 0-16 tablet by ity of 00:00: mouth [place] 00 daily. Medical Branch amLODIPine 2016-09 Yes [id number] 10mg Take 1 U nivers 10 mg 0-16 tablet by ity of tablet 00:00: mouth [place] 00 daily. Medical Branch insulin 2016-09 Yes [id number] 40U inject 40 U nivers glargine 0-16 Units ity of 100 unit/mL 00:00: [place] injection 00 skin at Medical bedtime. Branch blood sugar 2016-09 Yes [id number] Use TID, Univers diagnostic 0-16 DX E11.9 ity o f strip 00:00: ([facility] upon [facility] approval) lancets-blo 2016-09 Yes [id number] 1{each} 1 Each 2 Univers od glucose 0-16 (two) ity of strips 30 00:00: times [place] gauge Cmpk 00 daily. Medical Branch Blood-Gluco 2016-09 Yes [id number] Use TID, Univers se Meter 0-16 DX E11.9 ity of Kit 00:00: ([facility] upon [facility] approval) sildenafil 2016-09 Yes [id number] Take 1 Tab Univers 25 mg 0-16 PO Daily 1 ity of tablet 00:00: hr (range: [place] 00 30 min - 4 Medical hrs) Branch before sexual activity as needed metFORMIN 2016-09 Yes [id number] 1000mg Take 2 Univers 500 mg 0-16 tablets by ity of tablet 00:00: mouth 2 [place] 00 (two) Medical times Branch daily with meals. hydroCHLORO 2016-09 Yes [id number] 25mg Take 1 Univers thiazide 25 0-16 tablet by ity of mg tablet 00:00: mouth [place] 00 daily. Medical Branch lisinopril 2016-09 Yes [id number] 5mg Take 1 U nivers 5 mg tablet 0-16 tablet by ity of 00:00: mouth [place] 00 daily. Medical Branch amLODIPine 2016-09 Yes [id number] 10mg Take 1 U nivers 10 mg 0-16 tablet by ity of tablet 00:00: mouth [place] 00 daily. Medical Branch insulin 2016-09 Yes [id number] 40U inject 40 U nivers glargine 0-16 Units ity of 100 unit/mL 00:00: [place] the [place] injection 00 skin at Medical bedtime. Branch blood sugar 2016-09 Yes [id number] Use TID, Univers diagnostic 0-16 DX E11.9 ity o f strip 00:00: ([place] [address] upon [facility] approval) lancets-blo 2016-09 Yes [id number] 1{each} 1 Each 2 Univers od glucose 0-16 (two) ity of strips 30 00:00: times [place] gauge Cmpk 00 daily. Medical Branch Blood-Gluco 2016-09 Yes [id number] Use TID, Univers se Meter 0-16 DX E11.9 ity of Kit 00:00: ([place] [address] upon [facility] Branch approval) sildenafil 2016-09 Yes [id number] Take 1 Tab Univers 25 mg 0-16 PO Daily 1 ity of tablet 00:00: hr (range: [place] 00 30 min - 4 Medical hrs) Branch before sexual activity as needed metFORMIN 2016-09 Yes [id number] 1000mg Take 2 Univers 500 mg 0-16 tablets by ity of tablet 00:00: mouth 2 [place] 00 (two) Medical times Branch daily with meals. hydroCHLORO 2016-09 Yes [id number] 25mg Take 1 Univers thiazide 25 0-16 tablet by ity of mg tablet 00:00: mouth [place] 00 daily. Medical Branch lisinopril 2016-09 Yes [id number] 5mg Take 1 U nivers 5 mg tablet 0-16 tablet by ity of 00:00: mouth [place] 00 daily. Medical Branch amLODIPine 2016-09 Yes [id number] 10mg Take 1 U nivers 10 mg 0-16 tablet by ity of tablet 00:00: mouth [place] 00 daily. Medical Branch insulin 2016-09 Yes [id number] 40U inject 40 U nivers glargine 0-16 Units ity of 100 unit/mL 00:00: under [place] injection 00 skin at Medical bedtime. Branch blood sugar 2016-09 Yes [id number] Use TID, Univers diagnostic 0-16 DX E11.9 ity o f strip 00:00: ([address] approval) lancets-blo 2016-09 Yes [id number] 1{each} 1 Each 2 Univers od glucose 0-16 (two) ity of strips 30 00:00: times [place] gauge Cmpk 00 daily. Medical Branch Blood-Gluco 2016-09 Yes [id number] Use TID, Univers se Meter 0-16 DX E11.9 ity of Kit 00:00: ([address] approval) sildenafil 2016-09 Yes [id number] Take 1 Tab Univers 25 mg 0-16 PO Daily 1 ity of tablet 00:00: hr (range: [place] 00 30 min - 4 Medical hrs) Branch before sexual activity as needed metFORMIN 2016-09 Yes [id number] 1000mg Take 2 Univers 500 mg 0-16 tablets by ity of tablet 00:00: mouth 2 [place] 00 (two) Medical times Branch daily with meals. hydroCHLORO 2016-09 Yes [id number] 25mg Take 1 Univers thiazide 25 0-16 tablet by ity of mg tablet 00:00: mouth [place] 00 daily. Medical Branch lisinopril 2016-09 Yes [id number] 5mg Take 1 U nivers 5 mg tablet 0-16 tablet by ity of 00:00: mouth [place] 00 daily. Medical Branch Immunizations Ordered Filled Immunization Date Status Comments [facility] e Immunization Name Name Influenza Virus 2020-06-11 Completed Universit y of Vaccine 00:00:00 [facility] Influenza Virus 2020-06-11 Completed Universit y of Vaccine 00:00:00 [facility] Influenza Virus 2020-06-11 Completed Universit y of Vaccine 00:00:00 [facility] Influenza Virus 2020-06-11 Completed Universit y of Vaccine 00:00:00 [facility] Influenza Virus 2020-06-11 Completed Universit y of Vaccine 00:00:00 [facility] Influenza Virus 2020-06-11 Completed Universit y of Vaccine 00:00:00 [facility] Influenza Virus 2020-06-11 Completed Universit y of Vaccine 00:00:00 [facility] Influenza Virus 2020-06-11 Completed Universit y of Vaccine 00:00:00 [facility] Influenza Virus 2020-06-11 Completed Universit y of Vaccine 00:00:00 [facility] Influenza Virus 2020-06-11 Completed Universit y of Vaccine 00:00:00 [facility] Influenza Virus 2020-06-11 Completed Universit y of Vaccine 00:00:00 [facility] Influenza Virus 2020-06-11 Completed Universit y of Vaccine 00:00:00 [facility] Pneumococcal 2016-11-24 Completed University o f Polysaccharide, 00:00:00 [place] [facility] PPSV23 (PNEUMOVAX) [place] Influenza Virus 2016-11-24 Completed Universit y of Vaccine Quad IM 3+ 00:00:00 [facility] Pneumococcal 2016-11-24 Completed University o f Polysaccharide, 00:00:00 [place] Med ical PPSV23 (PNEUMOVAX) [place] Influenza Virus 2016-11-24 Completed Universit y of Vaccine Quad IM 3+ 00:00:00 [facility] [facility] Pneumococcal 2016-11-24 Completed University o f Polysaccharide, 00:00:00 [place] [facility] PPSV23 (PNEUMOVAX) Branch Influenza Virus 2016-11-24 Completed Universit y of Vaccine Quad IM 3+ 00:00:00 [facility] Pneumococcal 2016-11-24 Completed University o f Polysaccharide, 00:00:00 [place] [facility] PPSV23 (PNEUMOVAX) Branch Influenza Virus 2016-11-24 Completed Universit y of Vaccine Quad IM 3+ 00:00:00 [facility] Pneumococcal 2016-11-24 Completed University o f Polysaccharide, 00:00:00 [place] [facility] PPSV23 (PNEUMOVAX) [place] Influenza Virus 2016-11-24 Completed Universit y of Vaccine Quad IM 3+ 00:00:00 [facility] Pneumococcal 2016-11-24 Completed University o f Polysaccharide, 00:00:00 [facility] ical PPSV23 (PNEUMOVAX) Branch Influenza Virus 2016-11-24 Completed Universit y of Vaccine Quad IM 3+ 00:00:00 [facility] Pneumococcal 2016-11-24 Completed University o f Polysaccharide, 00:00:00 [place] [facility] PPSV23 (PNEUMOVAX) Branch Influenza Virus 2016-11-24 Completed Universit y of Vaccine Quad IM 3+ 00:00:00 [facility] Pneumococcal 2016-11-24 Completed University o f Polysaccharide, 00:00:00 [place] [facility] PPSV23 (PNEUMOVAX) Branch Influenza Virus 2016-11-24 Completed Universit y of Vaccine Quad IM 3+ 00:00:00 [facility] Pneumococcal 2016-11-24 Completed University o f Polysaccharide, 00:00:00 [place] [facility] PPSV23 (PNEUMOVAX) Branch Influenza Virus 2016-11-24 Completed Universit y of Vaccine Quad IM 3+ 00:00:00 [facility] Pneumococcal 2016-11-24 Completed University o f Polysaccharide, 00:00:00 [place] [facility] PPSV23 (PNEUMOVAX) Branch Influenza Virus 2016-11-24 Completed Universit y of Vaccine Quad IM 3+ 00:00:00 [facility] Pneumococcal 2016-11-24 Completed University o f Polysaccharide, 00:00:00 [place] [facility] PPSV23 (PNEUMOVAX) Branch Influenza Virus 2016-11-24 Completed Universit y of Vaccine Quad IM 3+ 00:00:00 [facility] Pneumococcal 2016-11-24 Completed University o f Polysaccharide, 00:00:00 [place] [facility] PPSV23 (PNEUMOVAX) Branch Influenza Virus 2016-11-24 Completed Universit y of Vaccine Quad IM 3+ 00:00:00 [facility] Pneumococcal 2016-11-24 Completed University o f Polysaccharide, 00:00:00 [place] [facility] PPSV23 (PNEUMOVAX) Branch Influenza Virus 2016-11-24 Completed Universit y of Vaccine Quad IM 3+ 00:00:00 [facility] Td 2016-11-22 Completed University of 00:00:00 [facility] Td 2016-11-22 Completed University of 00:00:00 [facility] Td 2016-11-22 Completed University of 00:00:00 [facility] Td 2016-11-22 Completed University of 00:00:00 [facility] Td 2016-11-22 Completed University of 00:00:00 [facility] Td 2016-11-22 Completed University of 00:00:00 [facility] Td 2016-11-22 Completed University of 00:00:00 [facility] Td 2016-11-22 Completed University of 00:00:00 [facility] Td 2016-11-22 Completed University of 00:00:00 [facility] Td 2016-11-22 Completed University of 00:00:00 [facility] Td 2016-11-22 Completed University of 00:00:00 [facility] Td 2016-11-22 Completed University of 00:00:00 [facility] Td 2016-11-22 Completed University of 00:00:00 [facility] Branch Vital Signs Vital Name Observation Time Observation Value Comments Source Body temperature 2020-10-20 16:33:00 36.67 Makenzie [facility] Body height 2020-10-20 16:33:00 180.3 cm Universi ty of [facility] Body weight 2020-10-20 16:33:00 121.11 kg Universi ty of [facility] BMI 2020-10-20 16:33:00 37.24 kg/m2 Universi ty of [facility] Body temperature 2020-09-29 15:34:00 36.44 Makenzie [facility] ersity [facility] Body weight 2020-09-29 15:34:00 121.473 kg Universi ty of [facility] BMI 2020-09-29 15:34:00 37.35 kg/m2 Universi ty [facility] Branch Systolic blood 2020-08-11 19:17:00 177 mm[Hg] Univer sity of pressure [facility] Diastolic blood 2020-08-11 19:17:00 101 mm[Hg] Unive rsity of pressure [facility] Heart rate 2020-08-11 19:17:00 110 /min Universi ty [facility] Body temperature 2020-08-11 19:15:00 36.44 Makenzie [facility] Respiratory rate 2020-08-11 19:15:00 16 /min [facility] ersity [facility] Body height 2020-08-11 19:15:00 180.3 cm Universi ty of [facility] Body weight 2020-08-11 19:15:00 121.473 kg Universi ty of [facility] Branch BMI 2020-08-11 19:15:00 37.35 kg/m2 [facility] Medical Branch Procedures Procedure Date / Time Performed Performing Clinician Sourc e XR FOOT 3+ VW RIGHT 2020-09-29 16:15:00 Kaye Gonsales [facility] Branch ASSIGNMENT OF BENEFITS 2020-08-11 19:07:32 Doctor Unassigned, No [facility] Name Medical Branch Encounters Start End Encounter Admission Attending Care Care Encounter Source Date/Time Date/Time Type Type Clinicians Facility Department ID 2021-05-18 2021-05-18 Outpatient SANDRA ERNANDEZ [id number] Sandra 10:15:00 10:15:00 MAGALIS Seybol d 2021-05-15 2021-05-15 Outpatient SANDRA ERNANDEZ [id number] Sandra 00:00:00 00:00:00 MAGALIS Seybol d 2021-04-28 2021-04-28 Outpatient SANDRA ERNANDEZ [id number] Sandra 00:00:00 00:00:00 MAGALIS Seybol d 2021-04-27 2021-04-27 Outpatient SANDRA ERNANDEZ [id number] Sandra 00:00:00 00:00:00 MAGALIS Seybol d 2021-04-22 2021-04-22 Outpatient SANDRA ERNANDEZ [id number] Sandra 00:00:00 00:00:00 MAGALIS Seybol d 2021-04-20 2021-04-20 Outpatient SANDRA ERNANDEZ [id number] Sandra 00:00:00 00:00:00 MAGALIS Seybol d 2021-04-17 2021-04-17 Outpatient SANDRA ERNANDEZ [id number] Sandra 00:00:00 00:00:00 MAGALIS Seybol d 2021-04-17 2021-04-17 Outpatient MARITZA LEWIS [id number] Sandra 00:00:00 00:00:00 Seybol d 2021-04-16 2021-04-16 Outpatient SANDRA ERNANDEZ [id number] Sandra 08:30:00 08:30:00 MAGALIS Seybol d 2021-04-16 2021-04-16 Outpatient DEB98-[id number] SANDRA MCDANIELS [id number] Sandra 08:20:00 08:20:00 Seybol d 2021-04-06 2021-04-06 Outpatient JENY SANDRA MCDANIELS [id number] Sandra 00:00:00 00:00:00 ROSALBA Seybol d 2021-04-04 2021-04-04 Outpatient JENY SANDRA MCDANIELS [id number] Sandra 00:00:00 00:00:00 ROSALBA Seybol d 2020-12-02 2020-12-02 Patient [facility] [id number] Univers 00:00:00 00:00:00 [facility] [id number] i [facility] [id number] [facility] [place] [id number] Ia kylah [address] [place] [address] 2020-11-10 2020-11-10 [facility] [id number] Univers 09:45:00 09:45:00 [facility] [id number] [facility] 2020-11-10 2020-11-10 [facility] [id number] Univers 09:45:00 09:45:00 [facility] 2020-10-31 2020-10-31 Telephone [facility] [id number] Univers 00:00:00 00:00:00 Rebecca SPECIALTY [id number] ity [id number] [place] [id number] Ia selinashanti DONOHUE [address] [place] [address] 2020-10-20 2020-10-20 [facility] [id number] Univers 10:05:41 13:50:58 Visit Rebecca SPECIALTY [id number] [id number] [id number] Ia kylah DONOHUE 198 [facility] 2020-10-20 2020-10-20 [facility] [id number] Univers 09:45:00 09:45:00 KAYE [id number] ity [facility] 2020-10-20 2020-10-20 Outpatient R ARIANNA [facility] [id number] Univers 09:45:00 09:45:00 KAYE ity of [facility] 2020-10-13 2020-10-13 [facility] [id number] Univers 10:30:00 10:30:00 REBECCA [id number] ity [facility] 2020-10-13 2020-10-13 Outpatient R JEISON [facility] [id number] Univers 10:30:00 10:30:00 REBECCA ity [facility] 2020-09-29 2020-09-29 [facility] [id number] Univers 10:03:46 23:59:00 Encounter Kaye PRIMARY [id number] it[place] of [id number] [id number] Ia dical [address] [place] 2020-09-29 2020-09-29 Office [facility] [id number] Univers 09:27:17 10:36:22 Visit Kaye PRIMARY [id number] ity of [id number] [id number] Ia dical [address] [place] 2020-09-29 2020-09-29 [facility] [id number] Univers 09:15:00 09:15:00 KAYE [id number] ity [facility] 2020-09-29 2020-09-29 Outpatient [facility] [id number] Univers 09:15:00 09:15:00 KAYE ity [facility] 2020-09-08 2020-09-08 Outpatient R [facility] [id number] Univers 14:00:00 14:00:00 [id number] ity [facility] 2020-08-11 2020-08-11 Booth Manager [facility] UNIVERSIT [id number] Univers 14:45:44 15:00:44 Visit Teresa Edwards HEALTH [id number] ity of CL[id number] [id number] [facility] 316 Branch 2020-08-11 2020-08-11 Office Nabila Collins [id number] Univers 13:08:19 14:38:25 Visit Teresa Edwards [facility] [id number] ity of CL[id number] [id number] [facility] 089 Branch 2020-08-11 2020-08-11 Outpatient [facility] [id number] Univers 13:00:00 13:00:00 [id number] ity of [facility] 2020-08-11 2020-08-11 Outpatient R [facility] [id number] Univers 13:00:00 13:00:00 ity of [facility] 2020-08-11 2020-08-11 Orders Doctor MALISSA [id number] Univers 00:00:00 00:00:00 Only Unassigned, FARHAN [id number] ity of [facility] [id number] [place] as [id number] [facility] 009 [place] Results Test Description Test Time Test Comments Results Result [facility] e Comments XR FOOT 3+ VW 2020-09-19 1. ?Neuropathic Unive rsity of RIGHT 1 right mid foot. [place] [facility] 20:59:26 RL: [id number] Branch HISTORY: [...] is a remote fracture proximal fifth phalanx. [facility], Radiant Results Inft User - 09/29/2020 3:00 [...]
[2021-09-13 08:45] LABS: Absolute Lymphocytes (CBC) 0.9 K/uL (0.7-4.9); Hematocrit 30.4 % (39.6-49.0); Lymphocytes % 7.8 % (15.3-44.8); MPV 6.6 fL (7.6-11.3); RBC Red Blood Cell Count 3.53 M/uL (4.33-5.43)
[2021-09-13 08:52] LABS: Protime INR 1.41
--- NOTE | 2021-09-13 08:53 | RAD REPORT ---
EXAM DESCRIPTION: CT - Spine Lumbar Wo Con - 09/13/2021 8:34 am CLINICAL HISTORY: Radiculopathy. DEFORMITY COMPARISON: <Comparisons> TECHNIQUE: Axial noncontrast CT imaging of the lumbar spine was performed with coronal and sagittal re-formatted images. All CT scans are performed using dose optimization technique as appropriate and may include automated exposure control or mA/KV adjustment according to patient size. FINDINGS: No acute lumbar spine fracture seen. No aggressive marrow pattern or malalignment. Paraspinal tissues are normal in thickness. No paraspinal abscess or hematoma seen. Moderate lower lumbar degenerative spondylosis is present, most severe in the L5-S1. Moderate central canal narrowing at this level. Right iliac stent is noted. Small gallstone suspected. IMPRESSION: No acute lumbar spine abnormality seen. Moderate lower lumbar degenerative changes, most severe at L5-S1.
[2021-09-13 09:08] LABS: ALT/SGPT 19 U/L (12-78); AST/SGOT 14 U/L (15-37); Albumin 1.8 g/dL (3.4-5.0); Alkaline Phosphatase 150 U/L (45-117); Amylase 29 U/L (25-115); BUN Blood Urea Nitrogen 7 mg/dL (7-18); Bicarbonate 22 mmol/L (21-32); Bilirubin Direct 0.2 mg/dL (0-0.2); Bilirubin Total 0.7 mg/dL (0.2-1.0); CKMB Creatine Kinase MB < 1.0 ng/mL (1.0-3.6); Creatine Phosphokinase 18 U/L (39-308); Glucose Level 289 mg/dL (74-106); Lipase 147 U/L (73-393); Potassium 3.7 mmol/L (3.5-5.1); Protein, Total 8.1 g/dL (6.4-8.2); Sodium Level 127 mmol/L (136-145); Troponin (Emerg Dept Use Only) < 0.02 ng/mL (0.0-0.045)
[2021-09-13] MEDS ORDERED: ONDANSETRON 4 MG/2 ML VIAL ONE (09:11)
[2021-09-13] MEDS ORDERED: KETOROLAC 30 MG/ML INJ ONE (09:11)
[2021-09-13] MEDS ORDERED: NA CHLORIDE 0.9% 2,000 ML ONE (09:12)
[2021-09-13 09:25] LABS: Blood Morphology Comment NOT SEEN (NOT SEEN); Platelet Estimate ADEQ
--- NOTE | 2021-09-13 09:38 | RAD REPORT ---
EXAM DESCRIPTION: RAD - Chest Single View - 09/13/2021 8:59 am CLINICAL HISTORY: CONGESTION Chest pain. COMPARISON: Chest Single View dated 05/07/2020; Chest Single View dated 08/29/2019; Chest Single View dated 08/25/2019; Chest Pa And Lat (2 Views) dated 10/28/2016 FINDINGS: Portable technique limits examination quality. The lungs are grossly clear. The heart is normal in size. No displaced fractures. IMPRESSION: No acute intrathoracic process suspected.
--- NOTE | 2021-09-13 09:39 | RAD REPORT ---
EXAM DESCRIPTION: RAD - Foot Right 3 View - 09/13/2021 8:59 am CLINICAL HISTORY: PAIN COMPARISON: Foot Right W/Wo Con dated 06/20/2020; Foot Right Wo Cont dated 04/30/2020 FINDINGS: Marked flatfoot deformity is present with significant destructive changes in the midfoot. Second toe appears absent. Marked demineralization of the bones are present. Findings likely indicate s advanced osteomyelitis or Charcot arthropathy.
[2021-09-13] MEDS ORDERED: CEFEPIME 1 GM/VIAL ONE (09:43)
[2021-09-13] MEDS ORDERED: NA CHLORIDE 0.9% 100 ML ONE (09:45)
--- NOTE | 2021-09-13 09:53 | ER ---
[facility]urse's [facility] Name: Roverto Figueroa Age: 51 yrs Sex: Male : 1970 Arrival Date: 09/13/2021 Time: 07:22 Bed 15 Private MD: Diagnosis: Cellulitis of right lower limb;Other specified sepsis Presentation: 09/13 07:31 Chief complaint: Patient states: Pt EEMS, reports mid low back radiating to b/l legs eo2 onset last night, also with right foot sore "that's been going on for two years" per pt, states "I couldn't move this morning" EMS states: pt from home, autistic son called EMS, pt noncomplaint, hx DM, HTN. Chief complaint:. Coronavirus screen: Vaccine status: Patient reports receiving the 2nd dose of the covid vaccine. Ebola Screen: Patient negative for fever greater than or equal to 101.5 degrees Fahrenheit, and additional compatible Ebola Virus Disease symptoms Patient denies exposure to infectious person. Patient denies travel to an Ebola-affected area in the 21 days before illness onset. No symptoms or risks identified at this time. Initial Sepsis Screen: Does the patient meet any 2 criteria? HR > 90 bpm. Does the patient have a suspected source of infection? Yes: Skin breakdown/wound. Risk Assessment: Do you want to hurt yourself or someone else? Patient reports no desire to harm self or others. Onset of symptoms is unknown. 07:31 Method Of Arrival: EMS: [facility] eo2 07:31 Acuity: KAMRYN 3 eo2 Triage Assessment: 07:36 General: Appears in no apparent distress. uncomfortable, Behavior is calm, cooperative. eo2 Pain: Complains of pain in mid lower back radiating to b/l legs. Historical: - Allergies: 07:36 No Known Allergies; eo2 - Home Meds: 07:36 Hydralazine Oral [Active]; Metformin Oral [Active]; eo2 - PMHx: 07:36 Diabetes - NIDDM; Hypertension; eo2 - PSHx: 07:36 toe amputation; eo2 - Immunization history:: Adult Immunizations up to date, Client reports receiving the 2nd dose of the Covid vaccine. - Social history:: Smoking status: Patient/guardian denies using tobacco, Patient uses alcohol, occasionally. - Family history:: not pertinent. Screenin:16 Abuse screen: Denies threats or abuse. Denies injuries from another. Nutritional eo2 screening: No deficits noted. Tuberculosis screening: No symptoms or risk factors identified. Fall Risk Ambulatory Aid- Crutches/Cane/Walker (15 pts). Assessment: 07:38 General: Appears in no apparent distress. uncomfortable, Behavior is calm, cooperative, eo2 anxious. Pain: Complains of pain in mid lower back radiating to b/l legs. Neuro: No deficits noted. Denies dizziness, headache. Cardiovascular: Denies chest pain, Patient's skin is warm and dry. 07:38 Respiratory: Reports shortness of breath with pain Airway is patent Respiratory effort eo2 is even, unlabored, Respiratory pattern is regular, symmetrical, Breath sounds are clear bilaterally. GI: No deficits noted. No signs and/or symptoms were reported involving the gastrointestinal system. : No deficits noted. No signs and/or symptoms were reported regarding the genitourinary system. 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 10:43 Reassessment: Called pharmacy regarding vanc order, pharmacist to manage medication, eo2 states he'll speak with provider, change order dose and deliver it to RN. 10:46 Reassessment: Dr. Lopez at bedside, pt requesting more pain medication, will make eo2 Dr. Plascencia aware. 11:12 Reassessment: vanc 2g IV delivered by pharmacy was administered at 1111 am. eo2 14:13 Reassessment: Dr. Plascencia made aware of elevated temp and HR, received order for eo2 tylenol 1000mg PO once and NS 1000ML IV bolus. Orders pplaced, will carry out. 14:50 Reassessment: Vanc infusion stopped at this time. Will inform RN with [facility] access eo2 to stop medication in [facility]. 15:34 Reassessment: attempted to call report, kept on hold for 6 minutes, called and back on eo2 hold again for receiving nurse. 16:07 Reassessment: Dutch COOK made aware that dry gauze dressing change done on Right foot eo2 wound, also made aware of BG and Temp. Vital Signs: 07:31 BP 151 / 93; Pulse 111; Resp 17; Temp 99.7; Pulse Ox 100% on R/A; Weight 117.93 kg; eo2 Height 6 ft. 2 in. (187.96 cm); Pain 10/10; 08:17 BP 160 / 102; Pulse 115; Resp 20; Pulse Ox 97% ; eo2 09:00 BP 149 / 126; Pulse 111; Resp 23; Pulse Ox 97% ; eo2 10:00 BP 133 / 74; Pulse 126; Resp 24; Pulse Ox 99% ; eo2 10:30 Pain 10/10; eo2 11:00 BP 128 / 62; Pulse 117; Resp 23; Pulse Ox 99% ; Pain 10/10; eo2 12:00 BP 118 / 75; Pulse 112; Resp 22; Pulse Ox 97% ; eo2 12:10 Pain 5/10; eo2 12:10 Pain 5/10; eo2 13:17 BP 119 / 65; Pulse 116; Resp 27; Pulse Ox 97% ; eo2 14:00 BP 151 / 92; Pulse 125; Resp 22; Pulse Ox 99% ; Pain 4/10; eo2 14:04 Temp 101.6; eo2 16:06 Temp 100; Pain 5/10; eo2 16:08 BP 118 / 57; Pulse 120; Resp 17; Temp 100; Pulse Ox 99% ; Pain 5/10; eo2 07:31 Body Mass Index 33.38 (117.93 kg, 187.96 cm) eo2 14:04 Dr. Plascencia made aware eo2 ED Course: 07:22 Patient arrived in ED. eb 07:24 Mirian Plascencia MD is Attending Physician. ma2 07:31 Sonia Medina RN is Primary Nurse. eo2 07:36 Triage completed. eo2 07:36 Arm band placed on. eo2 08:00 Inserted saline lock: 18 gauge in right antecubital area, using aseptic technique. eo2 08:16 Patient has correct armband on for positive identification. Placed in gown. Bed in low eo2 position. Call light in reach. Side rails up X2. laundry attendant on. Pulse ox on. NIBP on. Door closed. Noise minimized. Warm blanket given. 08:16 No provider procedures requiring assistance completed. eo2 08:26 Patient moved to [place] will medicate upon return. eo2 08:34 CT Lumbar Spine Wo Con In Process Unspecified. EDMS 08:59 Chest Single View XRAY In Process Unspecified. EDMS 08:59 XRAY Foot RIGHT 3 View In Process Unspecified. EDMS 09:13 EKG done, COVID swab sent to lab. mh5 09:31 SARS-COV-2 RT PCR (Document "Date of Onset" if Symptomatic) Sent. mh5 09:36 EKG done, by ED staff, reviewed by Mirian Plascencia MD. ll3 09:52 Gil Luna MD is Hospitalizing Provider. ma2 15:42 Report given to Dutch COOK. eo2 17:07 Patient admitted, IV remains in place. eo2 Administered Medications: 09:30 Drug: NS 0.9% (30 ml/kg) 2000 ml {Note: admin 2L NS per Dr. Plascencia.} Route: IV; Rate: eo2 bolus; Site: right antecubital; 11:00 Follow up: Response: No adverse reaction; IV Status: Completed infusion; IV Intake: eo2 2000ml 09:30 Drug: Zofran (Ondansetron) 4 mg Route: IVP; Site: right antecubital; eo2 10:30 Follow up: Response: No adverse reaction; Vomiting decreased eo2 09:30 Drug: Ketorolac 30 mg Route: IVP; Site: right antecubital; eo2 10:30 Follow up: Pain 10/10 Adult; Response: No adverse reaction eo2 09:49 Drug: Cefepime 1 grams Route: IVPB; Rate: 200 ml/hr; Infused Over: 30 mins; Site: right eo2 antecubital; 10:20 Follow up: Response: No adverse reaction; IV Status: Completed infusion; IV Intake: eo2 100ml 11:05 Not Given (pharmacy to speak with physician and chnage orderr): vancoMYCIN 1 grams IVPB eo2 once over 2 hrs 11:10 Drug: Dilaudid (HYDROmorphone) 1 mg Route: IVP; Site: right antecubital; eo2 12:10 Follow up: Pain 5/10 Adult; Response: No adverse reaction; Pain is decreased eo2 14:49 Drug: Tylenol 1000 mg Route: PO; eo2 16:06 Follow up: Temp 100; Pain 5/10 Adult; Response: No adverse reaction; Temperature is eo2 decreased 14:49 Drug: NS 0.9% 1000 ml Route: IV; Rate: 1 bolus; Site: right antecubital; eo2 15:49 Follow up: Response: No adverse reaction; IV Status: Completed infusion; IV Intake: eo2 1000ml Intake: 10:20 IV: 100ml; Total: 100ml. eo2 11:00 IV: 2000ml; Total: 2100ml. eo2 15:49 IV: 1000ml; Total: 3100ml. eo2 Output: 13:15 Urine: 350ml (Voided); Total: 350ml. eo2 Outcome: 09:52 Decision to Hospitalize by Provider. ma2 17:05 Patient left the ED. eb 17:06 Admitted to Med/surg family with patient, via stretcher. eo2 17:06 Condition: stable 17:06 Instructed on the need for admit, Demonstrated understanding of instructions. Signatures: Dispatcher [employer] EDAlisa Nuno [facility] Mirian Plascencia MD MD ma2 Vidya Saucedo [place], RN RN 3 Sonia Medina RN RN eo2 Corrections: (The following items were deleted from the chart) 10:46 07:38 Musculoskeletal: right foot wound/infection for two years Denies weakness in eo2 lower back pain and weakness to b/l LE eo2 13:03 11:00 BP 128 / 62; Pulse 117bpm; Resp 23bpm; Pulse Ox 99%; eo2 eo2
--- NOTE | 2021-09-13 09:54 | EDPHYS ---
Physician Documentation [facility] Name: Roverto Figueroa Age: 51 yrs Sex: Male : 1970 Arrival Date: 09/13/2021 Time: 07:22 Bed 15 Private MD: ED Physician Mirian Plascencia HPI: 09/13 08:48 This 51 yrs old Male presents to ER via EMS with complaints of Back pain. ma2 08:48 The patient presents with pain that is chronic. The symptoms are located in the low ma2 back. Onset: The symptoms/episode began/occurred gradually, 3 day(s) ago. Associated signs and symptoms: Pertinent negatives: constipation, headache, incontinence, numbness. Severity of symptoms: At their worst the symptoms were mild, in the emergency department the symptoms are unchanged. The patient has experienced similar episodes in the past. Chronic back pain, no focal weakness, no urinary incontinence, saddle anesthesia, no change in sensation,. Historical: - Allergies: 07:36 No Known Allergies; eo2 - Home Meds: 07:36 Hydralazine Oral [Active]; Metformin Oral [Active]; eo2 - PMHx: 07:36 Diabetes - NIDDM; Hypertension; eo2 - PSHx: 07:36 toe amputation; eo2 - Immunization history:: Adult Immunizations up to date, Client reports receiving the 2nd dose of the Covid vaccine. - Social history:: Smoking status: Patient/guardian denies using tobacco, Patient uses alcohol, occasionally. - Family history:: not pertinent. ROS: 08:48 Constitutional: Negative for fever, chills, and weight loss. ma2 08:48 All other systems are negative. Exam: 08:48 Constitutional: This is a well developed, well nourished patient who is awake, alert, ma2 and in no acute distress. Head/Face: Normocephalic, atraumatic. Eyes: Pupils equal round and reactive to light, extra-ocular motions intact. Lids and lashes normal. Conjunctiva and sclera are non-icteric and not injected. Cornea within normal limits. Periorbital areas with no swelling, redness, or edema. ENT: Nares patent. No nasal discharge, no septal abnormalities noted. Tympanic membranes are normal and external auditory canals are clear. Oropharynx with no redness, swelling, or masses, exudates, or evidence of obstruction, uvula midline. Mucous membranes moist. Neck: Trachea midline, no thyromegaly or masses palpated, and no cervical lymphadenopathy. Supple, full range of motion without nuchal rigidity, or vertebral point tenderness. No Meningismus. Chest/axilla: Normal chest wall appearance and motion. Nontender with no deformity. No lesions are appreciated. Cardiovascular: Regular rate and rhythm with a normal S1 and S2. No gallops, murmurs, or rubs. Normal PMI, no JVD. No pulse deficits. Respiratory: Lungs have equal breath sounds bilaterally, clear to auscultation and percussion. No rales, rhonchi or wheezes noted. No increased work of breathing, no retractions or nasal flaring. Abdomen/GI: Soft, non-tender, with normal bowel sounds. No distension or tympany. No guarding or rebound. No evidence of tenderness throughout. Skin: Warm, dry with normal turgor. Normal color with no rashes, no lesions, and no evidence of cellulitis. MS/ Extremity: Pulses equal, no cyanosis. Neurovascular intact. Full, normal range of motion. Neuro: Awake and alert, GCS 15, oriented to person, place, time, and situation. Cranial nerves II-XII grossly intact. Motor strength 5/5 in all extremities. Sensory grossly intact. Cerebellar exam normal. Normal gait. 08:48 Back: pain, that is moderate, ROM is painful, normal spinal alignment noted, CVA tenderness, is absent, muscle spasm, is appreciated in the left low back and right low back. Vital Signs: 07:31 BP 151 / 93; Pulse 111; Resp 17; Temp 99.7; Pulse Ox 100% on R/A; Weight 117.93 kg; eo2 Height 6 ft. 2 in. (187.96 cm); Pain 10/10; 08:17 BP 160 / 102; Pulse 115; Resp 20; Pulse Ox 97% ; eo2 09:00 BP 149 / 126; Pulse 111; Resp 23; Pulse Ox 97% ; eo2 10:00 BP 133 / 74; Pulse 126; Resp 24; Pulse Ox 99% ; eo2 10:30 Pain 10/10; eo2 11:00 BP 128 / 62; Pulse 117; Resp 23; Pulse Ox 99% ; Pain 10/10; eo2 12:00 BP 118 / 75; Pulse 112; Resp 22; Pulse Ox 97% ; eo2 12:10 Pain 5/10; eo2 12:10 Pain 5/10; eo2 13:17 BP 119 / 65; Pulse 116; Resp 27; Pulse Ox 97% ; eo2 14:00 BP 151 / 92; Pulse 125; Resp 22; Pulse Ox 99% ; Pain 4/10; eo2 14:04 Temp 101.6; eo2 16:06 Temp 100; Pain 5/10; eo2 16:08 BP 118 / 57; Pulse 120; Resp 17; Temp 100; Pulse Ox 99% ; Pain 5/10; eo2 07:31 Body Mass Index 33.38 (117.93 kg, 187.96 cm) eo2 14:04 Dr. Plascencia made aware eo2 MDM: 07:24 Patient medically screened. ma2 09:51 Differential diagnosis: Joint Injury Osteoarthritis sprain. Data reviewed: vital signs, ma2 nurses notes. Counseling: I had a detailed discussion with the patient and/or guardian regarding: the historical points, exam findings, and any diagnostic results supporting the discharge/admit diagnosis, the presence of at least one elevated blood pressure reading (>120/80) during this emergency department visit, the need for outpatient follow up. Response to treatment: the patient's symptoms have markedly improved after treatment. 09/13 08:12 Order name: Amylase, Serum [facility] 09/13 08:12 Order name: Basic Metabolic Panel [facility] 09/13 08:12 Order name: Blood Culture Adult (2) [facility] 09/13 08:12 Order name: C-Reactive Protein; Complete Time: 09:45 [facility] 09/13 08:12 Order name: CBC with Diff ri2 09/13 08:12 Order name: CPK; Complete Time: 09:45 [facility] 09/13 08:12 Order name: Ckmb; Complete Time: 09:45 [facility] 09/13 08:12 Order name: LFT's; Complete Time: 09:45 [facility] 09/13 08:12 Order name: Lactate; Complete Time: 09:45 [facility] 09/13 08:12 Order name: Lipase; Complete Time: 09:45 [facility] 09/13 08:12 Order name: Procalcitonin; Complete Time: 09:45 [facility] 09/13 08:12 Order name: Protime (+inr); Complete Time: 09:45 ma2 09/13 08:12 Order name: Ptt, Activated; Complete Time: 09:45 ma2 09/13 08:12 Order name: Troponin (emerg Dept Use Only); Complete Time: 09:45 ma2 09/13 08:12 Order name: CT Lumbar Spine Wo Con; Complete Time: 09:45 ma2 09/13 08:12 Order name: Urine Microscopic Only ri2 09/13 08:12 Order name: Chest Single View XRAY; Complete Time: 09:45 ma2 09/13 08:12 Order name: Amylase; Complete Time: 09:45 EDMS 09/13 08:12 Order name: Basic Metabolic Panel; Complete Time: 09:45 EDMS 09/13 08:12 Order name: Blood Culture EDMS 09/13 08:44 Order name: SARS-COV-2 RT PCR (Document "Date of Onset" if Symptomatic) ri2 09/13 09:25 Order name: Manual Differential EDMS 09/13 10:40 Order name: Urine Dipstick-Ancillary EDMS 09/13 11:04 Order name: Vancomycin Level Trough EDMS 09/13 11:18 Order name: Comprehensive Metabolic Panel EDMS 09/13 11:19 Order name: CBC with Automated Diff EDMS 09/13 11:19 Order name: CBC with Automated Diff EDMS 09/13 11:19 Order name: Comprehensive Metabolic Panel EDMS 09/13 13:28 Order name: Lactate Sepsis 2 HR Follow-up EDMS 09/13 16:03 Order name: Glucose, Ancillary Testing EDMS 09/13 08:12 Order name: Accucheck; Complete Time: 09:38 ma2 09/13 08:12 Order name: Cardiac monitoring; Complete Time: 08:27 ma2 09/13 08:12 Order name: EKG - Nurse/Tech; Complete Time: 09:35 ma2 09/13 08:12 Order name: IV Saline Lock - Large Bore; Complete Time: 08:14 ma2 09/13 08:12 Order name: Labs collected and sent; Complete Time: 08:27 ma2 09/13 08:12 Order name: O2 Per Protocol; Complete Time: 08:14 ma2 09/13 08:12 Order name: O2 Sat Monitoring; Complete Time: 08:14 ma2 09/13 08:12 Order name: Urine Dipstick-Ancillary (obtain specimen) [facility] 09/13 08:12 Order name: XRAY Foot RIGHT 3 View; Complete Time: 09:45 [facility] 09/13 11:19 Order name: 60g Consistent Carbohydrate (ADA 1800/2000) EDMI 09/13 15:46 Order name: Glucose Level; Complete Time: 16:05 eo2 Administered Medications: 09:30 Drug: NS 0.9% (30 ml/kg) 2000 ml {Note: admin 2L NS per Dr. Plascencia.} Route: IV; Rate: eo2 bolus; Site: right antecubital; 11:00 Follow up: Response: No adverse reaction; IV Status: Completed infusion; IV Intake: eo2 2000ml 09:30 Drug: Zofran (Ondansetron) 4 mg Route: IVP; Site: right antecubital; eo2 10:30 Follow up: Response: No adverse reaction; Vomiting decreased eo2 09:30 Drug: Ketorolac 30 mg Route: IVP; Site: right antecubital; eo2 10:30 Follow up: Pain 10/10 Adult; Response: No adverse reaction eo2 09:49 Drug: Cefepime 1 grams Route: IVPB; Rate: 200 ml/hr; Infused Over: 30 mins; Site: right eo2 antecubital; 10:20 Follow up: Response: No adverse reaction; IV Status: Completed infusion; IV Intake: eo2 100ml 11:05 Not Given (pharmacy to speak with physician and chnage orderr): vancoMYCIN 1 grams IVPB eo2 once over 2 hrs 11:10 Drug: Dilaudid (HYDROmorphone) 1 mg Route: IVP; Site: right antecubital; eo2 12:10 Follow up: Pain 5/10 Adult; Response: No adverse reaction; Pain is decreased eo2 14:49 Drug: Tylenol 1000 mg Route: PO; eo2 16:06 Follow up: Temp 100; Pain 5/10 Adult; Response: No adverse reaction; Temperature is eo2 decreased 14:49 Drug: NS 0.9% 1000 ml Route: IV; Rate: 1 bolus; Site: right antecubital; eo2 15:49 Follow up: Response: No adverse reaction; IV Status: Completed infusion; IV Intake: eo2 1000ml Disposition Summary: 09/13/21 09:52 Hospitalization Ordered Hospitalization Status: Inpatient Admission ma2 Provider: Gil Luna ma2 Location: Telemetry/MedSurg (Inpatient) ma2 Condition: Stable ma2 Problem: new ma2 Symptoms: are unchanged ma2 Bed/Room Type: Standard ri2 Room Assignment: 203(09/13/21 15:26) eb Diagnosis - Cellulitis of right lower limb ma2 - Other specified sepsis ma2 Forms: - Medication Reconciliation Form ma2 - SBAR form ma2 Signatures: Dispatcher [employer] EDMS Mirian Plascencia MD MD ma2 Vidya Saucedo Eunice RN RN eo2 Corrections: (The following items were deleted from the chart) 15: 09:52 ma2 eb
[2021-09-13] MEDS ORDERED: VANCOMYCIN 1 GM/VIAL ONE (10:26)
[2021-09-13] MEDS ORDERED: NA CHLORIDE 0.9% 0 ML ONE (10:26)
[2021-09-13 10:41] LABS: Urine Blood 2+ (Negative); Urine Glucose 2+ (Negative); Urine Protein 2+ (Negative); Urine Specific Gravity >=1.030 (1.005-1.030)
[2021-09-13] MEDS: VANCOMYCIN 2 GM in NA CHLORIDE 0.9% 500 ML IVPB SCH ×2 (11:00→22:30)
[2021-09-13] MEDS ORDERED: HYDROMORPHONE HCL 1 MG/ML INJ ONE (11:01)
[2021-09-13] MEDS ORDERED: ONDANSETRON 4 MG/2 ML VIAL IV PRN (11:15)
--- NOTE | 2021-09-13 11:25 | P.HP ---
Certification for Inpatient Patient admitted to: Inpatient With expected LOS: >2 Midnights Practitioner: I am a practitioner with admitting privileges, knowledge of patient current condition, hospital course, and medical plan of care. Services: Services provided to patient in accordance with Admission requirements found in Title 42 Section 412.3 of the Code of Federal Regulations Patient History Date of Service: 09/13/21 Reason for admission: Right foot cellulitis History of Present Illness: Patient is 51 years of age has been having problems with his right foot for quite some time been complaining of increasing pain swelling on the right lateral aspect of his foot also had a recent fall came into the emergency room also complaining of some pain in his back no fever he is seen Dr. Coulter before he was advised to follow-up at [facility] see an infectious disease doctor Allergies No Known Allergies Allergy (Verified 05/07/20 08:35) Home Medications: Apixaban [Eliquis *] 2.5 mg PO BID 04/29/20 Dapagliflozin Propanediol [Farxiga] 5 mg PO DAILY 04/29/20 Lisinopril [Zestril] 20 mg PO DAILY 04/29/20 Metformin HCl 500 mg PO TID 04/29/20 Levofloxacin [Levaquin] 500 mg PO DAILY #14 tablet 05/02/20 Sulfamethoxazole/Trimethoprim [Sulfamethoxazole-Tmp Ds Tablet] 200 mg PO BID 05/07/20 - Past Medical/Surgical History Diabetic: Yes -: Hypertension -: Diabetes -: Amputation of right toe 2016 -: Femoral Stent - Family History Father -: Cancer - Social History Alcohol use: Yes CD- Drugs: No Caffeine use: Yes Review of Systems General: Weakness Musculoskeletal: Back Pain, Foot Pain Physical Examination - Vital Signs Temperature: 99.7 F Blood Pressure: 151/93 Pulse: 111 Respirations: 17 Pulse Ox (%): 100 (Room air) - Physical Exam General: Alert, Mild distress HEENT: Atraumatic Neck: Supple Respiratory: Clear to auscultation bilaterally Cardiovascular: No edema, Normal S1 S2 Gastrointestinal: Normal bowel sounds, Soft and benign Musculoskeletal: No clubbing Integumentary: Other (Right foot is swollen wrapped in bandages) Neurological: Normal speech - Studies Laboratory Data (last 24 hrs) 09/13/21 08:00: PT 16.3 H, INR 1.41, APTT 30.8 09/13/21 08:00: WBC 11.10 H, Hgb 10.2 L, Hct 30.4 L, Plt Count 439 H 09/13/21 08:00: Sodium 127 L, Potassium 3.7, BUN 7, Creatinine 0.62, Glucose 289 H, Total Bilirubin 0.7, AST 14 L, ALT 19, Alkaline Phosphatase 150 H, Amylase 29, Lipase 147 Assessment and Plan - Problems (Diagnosis) (1) Cellulitis and abscess of foot Current Visit: No Status: Acute Plan: Patient is 51 years of age admitted with a cellulitis/abscess of his right foot has gotten progressively worse over the past week he has had slightly more ankle swelling he recently tripped over and fell denies any fever clinical evidence of sepsis by evidenced by elevated white count procalcitonin he has been drinking excessively has elevated blood sugar mild hyponatremia we will continue with IV fluids vancomycin meropenem blood cultures surgery consult Dr. Coulter Complaining of some back pain foot x-ray possible osteomyelitis he has Charcot's arthropathy consult infectious disease MRI of the right foot without contrast to rule out osteomyelitis - Advance Directives Does patient have a Living Will: No Does patient have a Durable POA for Healthcare: No
[2021-09-13] MEDS ORDERED: Meropenem 1,000 MG in NA CHLORIDE 0.9% 100 ML IV SCH (11:30)
[2021-09-13 11:50] LABS: Urine Bacteria 20-50 /HPF (NONE SEEN); Urine RBC <5 /HPF (NONE SEEN)
[2021-09-13] MEDS ORDERED: ACETAMINOPHEN 500 MG TAB ONE (14:09)
[2021-09-13] MEDS ORDERED: NA CHLORIDE 0.9% 1,000 ML ONE (14:09)
[2021-09-13] MEDS: INSULIN -REGULAR HUMAN 50 UNIT/0.5 ML ML SQ SCH ×3 (16:30→22:32)
[2021-09-13] MEDS: Meropenem 1,000 MG in NA CHLORIDE 0.9% 100 ML IV SCH (17:00)
[2021-09-13] MEDS: NA CHLORIDE 0.9% 1,000 ML IV SCH (17:38)
[2021-09-13 18:25] VITALS: BMI 33.3
[2021-09-13] MEDS: MORPHINE 2 MG/ML SYR IV PRN ×2 (18:34→22:37)
[2021-09-13] MEDS: APIXABAN 2.5 MG TABLET PO SCH (22:33)
[2021-09-13] MEDS: METFORMIN HCL 500 MG TAB PO SCH (22:33)
[2021-09-13] MEDS ORDERED: HYDROMORPHONE HCL 1 MG/ML INJ IV ONE (23:20)
[2021-09-13] MEDS ORDERED: TRAMADOL HCL 50 MG TAB PO PRN (23:20)
[2021-09-13] MEDS ORDERED: Meropenem 1000 MG/VIAL IV ONE (23:31)
[2021-09-14] MEDS: Meropenem 1,000 MG in NA CHLORIDE 0.9% 100 ML IV SCH (01:00)
[2021-09-14] MEDS ORDERED: NA CHLORIDE 0.9% 100 ML ONE (01:13)
[2021-09-14] MEDS: NA CHLORIDE 0.9% 1,000 ML IV SCH ×2 (01:20→10:00)
[2021-09-14 05:36] LABS: Absolute Lymphocytes (CBC) 0.6 K/uL (0.7-4.9); Hematocrit 24.5 % (39.6-49.0); Lymphocytes % 5.7 % (15.3-44.8); MPV 6.6 fL (7.6-11.3); RBC Red Blood Cell Count 2.82 M/uL (4.33-5.43)
[2021-09-14 05:46] LABS: ALT/SGPT 14 U/L (12-78); AST/SGOT 8 U/L (15-37); Albumin 1.4 g/dL (3.4-5.0); Alkaline Phosphatase 118 U/L (45-117); BUN Blood Urea Nitrogen 8 mg/dL (7-18); Bicarbonate 22 mmol/L (21-32); Bilirubin Total 0.5 mg/dL (0.2-1.0); Glucose Level 226 mg/dL (74-106); Potassium 3.3 mmol/L (3.5-5.1); Protein, Total 6.5 g/dL (6.4-8.2); Sodium Level 129 mmol/L (136-145)
[2021-09-14] MEDS: VANCOMYCIN 2 GM in NA CHLORIDE 0.9% 500 ML IVPB SCH ×3 (08:53→21:00)
[2021-09-14] MEDS: APIXABAN 2.5 MG TABLET PO SCH (08:55)
[2021-09-14] MEDS: lisinopriL 20 MG TAB PO SCH (08:55)
[2021-09-14] MEDS: METFORMIN HCL 500 MG TAB PO SCH ×2 (08:55→21:33)
[2021-09-14] MEDS: INSULIN -REGULAR HUMAN 50 UNIT/0.5 ML ML SQ SCH ×4 (08:56→21:35)
[2021-09-14] MEDS: DAPAGLIFLOZIN PROPANEDIOL 5 MG PO SCH (08:56)
[2021-09-14] MEDS ORDERED: Meropenem 1,000 MG in NA CHLORIDE 0.9% 100 ML IV SCH (09:00)
--- NOTE | 2021-09-14 09:49 | P.PN ---
Date of Service: 09/14/21 Subjective: Feels a little bit better this morning, right foot not giving patient too much pain Reports she is more focused on his lower back pain. Pain started 3 days before presentation to ER, states he was dropped by EMS, but not quite sure if things are worse after the fall. Pain with any movement of his back. No new areas of numbness/tingling, no weakness ROS: 10 point ROS as noted above, otherwise negative Physical exam GEN: Alert, oriented, NAD HEENT: Normal conjunctiva, sclera anicteric CV: Regular rate and rhythm, R foot: 2+ edema Pulm: Nonlabored respirations on room air ABD: Soft, nontender, nondistended Integumentary: R foot with purulent drainage Neuro: Normal speech, normal affect Problem List Right foot wound with cellulitis/abscess History of right Charcot arthropathy Hypertension Diabetes mellitus type 2 insulin dependent Diabetic neuropathy Continue IV meropenem and vancomycin Discussed with pm technician today, patient unable to get MRI due to the amount of swelling in this foot/ankle, also with significant lower back pain and would not tolerate Infectious disease consulted for further antibiotic recommendations General surgery consulted, suspect this will need debridement/ I&D, has seen Dr. Hays for this previously pain medication as needed hold elquis for potential surgery Follow-up cultures Follow-up cultures if sent from the OR VTE: home eliquis held Code: full Dispo: Anticipate DC home in ~2 days Time Spent Managing Pts Care (In Minutes): 35
[2021-09-14] MEDS: HYDROCODONE/APAP 7.5/325 MG TAB PO PRN ×2 (09:59→21:34)
[2021-09-14] MEDS ORDERED: VANCOMYCIN 2 GM in NA CHLORIDE 0.9% 500 ML IVPB SCH (11:00)
--- NOTE | 2021-09-14 11:35 | CON ---
Date of Consultation: 09/14/2021 Brief History Of Present Illness: The patient is a 51-year-old male, known to me from previous admis ami, who presents to the hospital after stumbling and having a fall, complaining of predominantly b ack pain, but he noted that he had tripped and fell over some children's toys and twisted his foot in an unusual way. He does have a history of a Charcot joint on the right foot and a history also of a second digit amputation in 2017 and debridement in 2019 for a multiloculated abscess. He has a sign ificant Charcot foot with rounding of the foot. He had been getting wound care from myself and then officially transitioned to Infectious Disease doctor with [facility]. He had been getting improvement and had a few setbacks here and there, but ultimately the wound was almost closed on the plantar aspect o f the mid foot, but he continued to have a significant Charcot deformity. He did not have any compla ints up until he had his fall recently, at which point, he felt that the foot had become more unstabl e. He noted that this happened about several days prior and he noted that he started to have some dr de oliveira from the foot as well, which is a newer finding over the past few days all following his recen t fall. His predominant complaint is back pain and he presents now with drainage from his right foot on the plantar aspect. Past Medical History: Significant for hypertension, diabetes, obesity, Charcot foot. Past Surgical History: Includes a femoral stent, amputation of the right toe in 2016, debridement of multiloculated abscess of the right foot back in 2019. Allergies: NO KNOWN DRUG ALLERGIES. Home Medications: Include Eliquis, Farxiga, Zestril, metformin. He is recently started on Levaquin and Bactrim. Social History: He is a former smoker, quit approximately 6 to 7 years ago. Denies recreational kalee g use. He drinks alcohol on occasion. He lives with his . Family History: Significant for bladder cancer in his father. Review of Systems: A 10-point review of systems other than HPI, he continues to complain of back pain. Physical Examination: Vital Signs: At the time of my examination; his blood pressure was 119/67, heart rate was 101, respi ratory rate 20, temperature 97.9, SpO2 97% on room air. General: He is awake, alert, oriented. Psychiatric: Appropriate, conversive. HEENT: Normocephalic. Sclerae anicteric. Mucous membranes are moist. Oropharynx clear. Neck: Supple without JVD. Chest: Normal expansion and excursion. Cardiovascular: Regular rate and rhythm. Pulmonary: Clear to auscultation bilaterally. Abdomen: Soft. Extremities: Focused examination of lower extremity, his right lower extremity has significant Charc ot deformity. When I palpated the area, the tissue felt somewhat swollen and edematous. There was e rufina to the general region. I palpated the plantar aspect and some purulent fluid emanated from the plantar wound, which was approximately 2.5 cm x 3 cm in size. Continued palpation expressed more flu id from the foot consistent with a murky colored fluid concerning for abscess. Laboratory Data: He had a laboratory exam, which revealed a white blood cell count 10.3, hemoglobin is 8.2, hematocrit of 24.5, platelet count was 268. His neutrophils were 87%. His PT 16.3, INR 1.41 , PTT is 30.8. His sodium 129, potassium 3.3, chloride 95, carbon dioxide 22, BUN 8, creatinine 0.4, glucose was 226. His lactic acid was 1.2. He had imaging performed, which included a CT lumbar spi ne, which showed no acute lumbar spine abnormality, moderate lower lumbar degenerative changes most s evere at L5 on S1. He additionally had a foot x-ray on 09/13, which was officially read as marked fl atfoot deformity is present with significant destructive changes in the midfoot, second toe appears a bsent. Marked demineralization of the bones are present. Findings likely indicate advanced osteomye litis or Charcot arthropathy. Assessment And Plan: This is a 51-year-old man, who has a significant Charcot foot deformity with an ongoing infection. 1.Continue medical management, IV fluid hydration. 2.Antibiotic coverage to continue. 3.I have explained the risks, benefits, and alternatives of debridement of the foot wound including, but not limited to bleeding, infection, damage to surrounding tissues, need for further operation or procedures, ongoing wound care. In addition, the patient had limb loss with repeated infections and likely chronic osteomyelitic changes to a significant Charcot foot. I have explained that the patie nt will likely need a [id number] amputation in the future; however, the patient would not want to consider this at this time and prefers with a debridement to see if he is able to improve this foot as he did on his last occasion under my care. As such, we will proceed with debridement tomorrow. I have explained risks, benefits, and alternatives of the above stated plan. The patient agrees to pr oceed as indicated. Thank you for this interesting consult. JOE/RUTH ANN Voice ID: [id number] Report ID: [id number]
--- NOTE | 2021-09-14 11:45 | P.CNS ---
Date of Consult: 09/14/21 Chief Complaint: Right foot cellulitis History of Present Illness: The patient is a 51-year-old male with a past medical history of diabetes, iliac stent placement, hypertension, amputation of the right 2nd toe performed in 2017, and a chronic nonhealing diabetic foot ulcer/charcot foot deformity who presented to the emergency department secondary to increasing pain/swelling/redness/odor to right foot ulcer. Patient states that the ulcer had been improving however he recently a tripped over an object at home, and after this event the ulcer began to worsen. Of note patient follows up with Dr. Coulter in the wound center down stairs. Patient was hospitalized in 2019 and 2019 at this facility due to his foot ulcer. Both visits requires surgical I and D use and treatment for bacteremia. Imaging obtained on both visit its showed signs of neuropathic joint with possible osteomyelitis. Based off of both discharge summaries patient was not treated for heart osteomyelitis on either of those visits. X-ray performed on this visit showed signs concerning for advanced osteomyelitis vs charcot abnormality. Due to history and clinical condition we will treat as true osteomyelitis with 6 weeks of IV antibiotics. Blood and wound culture preliminary results growing gram-positive cocci. Continue monotherapy with IV vancomycin. Will adjust antibiotics based off full wound culture report. Patient currently denies nausea/vomiting/diarrhea/shortness breast/chest pain. Patient reports pain/tenderness to right foot. Allergies No Known Allergies Allergy (Verified 05/07/20 08:35) Home Medications: Apixaban [Eliquis *] 2.5 mg PO BID 04/29/20 Dapagliflozin Propanediol [Farxiga] 5 mg PO DAILY 04/29/20 Lisinopril [Zestril] 20 mg PO DAILY 04/29/20 Metformin HCl 500 mg PO TID 04/29/20 Levofloxacin [Levaquin] 500 mg PO DAILY #14 tablet 05/02/20 Sulfamethoxazole/Trimethoprim [Sulfamethoxazole-Tmp Ds Tablet] 200 mg PO BID 05/07/20 - Past Medical/Surgical History Diabetic: Yes -: Hypertension -: Diabetes -: Amputation of right toe 2016 -: Femoral Stent - Family History Father Medical History: Cancer - Social History Alcohol use: Yes CD- Drugs: No Caffeine use: Yes Review of Systems 10-point ROS is otherwise unremarkable Physical Examination Temp Pulse Resp BP Pulse Ox 97.9 F 101 H 20 119/67 97 09/14/21 08:00 09/14/21 08:00 09/14/21 08:00 09/14/21 08:00 09/14/21 08:00 General: Alert, Oriented x3, Cooperative, Obese HEENT: Atraumatic Neck: Supple Respiratory: Clear to auscultation bilaterally, Normal air movement Cardiovascular: No edema, Normal pulses, Regular rate/rhythm, Normal S1 S2 Capillary refill: <2 Seconds Gastrointestinal: Normal bowel sounds, Soft and benign, Non-distended Integumentary: Diabetic ulcer (To right foot. Extensive swelling noted. Chart costs abnormality.) Conclusions/Impression: Antibiotics: Vancomycin Start: 09/13 Indication: Osteomyelitis/bacteremia Assessment/plan Chronic nonhealing right diabetic foot ulcer with charcot foot deformity X-ray obtained on 09/13 showed advanced osteomyelitis vs charcot arthropathy. Due to nonhealing nature of ulcer/clinical condition/history will treat as true osteomyelitis. Patient will require 6 weeks of IV antibiotics. Recommend PICC line placement. Preliminary wound culture growing gram-positive cocci. Awaiting full culture report. Continue IV vancomycin, will tailor antibiotics based off full wound culture report. Vancomycin trough goal of 12-17. Vancomycin trough obtained on 09/14 pending. Patient has multiple comorbidities that influence wound healing including but not limited to: Protein caloric malnutrition, diabetes uncontrolled, anemia. Continue to monitor inflammatory markers including CRP and ESR. CRP obtained on 09/07 6-35, ESR pending. Bacteremia Source of infection: Infected right diabetic foot ulcer. Blood cultures obtained on 09/13 growing gram-positive cocci in 4/4 bottles. Awaiting full culture report. Continue IV vancomycin at this time. Diabetes Uncontrolled, hemoglobin A1c pending. Anemia Continue to monitor H&H Leukocytosis Resolve. Continue to monitor WBC trend. Protein caloric malnutrition Low albumin, recommend supplemental Glucerna protein drinks. -medical management per primary team -continue monitor for signs of infection Plan of care discussed with Dr. green Thank you for consultation.
[2021-09-15] MEDS: MORPHINE 2 MG/ML SYR IV PRN ×2 (02:55→19:31)
[2021-09-15 05:42] LABS: Absolute Lymphocytes (CBC) 0.7 K/uL (0.7-4.9); Hematocrit 25.1 % (39.6-49.0); MPV 6.4 fL (7.6-11.3); RBC Red Blood Cell Count 2.91 M/uL (4.33-5.43)
[2021-09-15 05:55] LABS: BUN Blood Urea Nitrogen 7 mg/dL (7-18); Bicarbonate 27 mmol/L (21-32); Glucose Level 197 mg/dL (74-106); Potassium 3.1 mmol/L (3.5-5.1); Sodium Level 131 mmol/L (136-145)
[2021-09-15] MEDS: NA CHLORIDE 0.9% 1,000 ML IV SCH ×3 (06:40→13:43)
[2021-09-15] MEDS: INSULIN -REGULAR HUMAN 50 UNIT/0.5 ML ML SQ SCH ×4 (08:14→22:09)
[2021-09-15] MEDS: VANCOMYCIN 2 GM in NA CHLORIDE 0.9% 500 ML IVPB SCH ×2 (08:15→22:09)
[2021-09-15] MEDS: DAPAGLIFLOZIN PROPANEDIOL 5 MG PO SCH (08:15)
[2021-09-15] MEDS: METFORMIN HCL 500 MG TAB PO SCH ×2 (08:15→22:08)
[2021-09-15] MEDS: lisinopriL 20 MG TAB PO SCH (08:16)
--- NOTE | 2021-09-15 10:56 | P.PN ---
Subjective Date of Service: 09/15/21 Chief Complaint: Right foot cellulitis Patient seen and examined at bedside, still complaining of lumbar back pain. Patient states that the pain shoots down his leg. Review of Systems 10-point ROS is otherwise unremarkable Physical Examination - Vital Signs Temperature: 97.0 F Blood Pressure: 139/72 Pulse: 72 Respirations: 20 Pulse Ox (%): 97 - Studies Microbiology 09/13/21 10:30 Clean Catch Urine [place] Count - Final <10,000 CFU/ML. 09/13/21 10:30 Clean Catch Urine - Final MIXED LEXY. 09/13/21 08:00 Blood - Blood Aerobic Blood Culture - Preliminary 09/13/21 08:00 Blood - Blood Blood Culture Gram Stain - Final 09/13/21 08:00 Blood - Blood Anaerobic Blood Culture - Preliminary 09/13/21 08:00 Blood - Blood Gram Stain - Final 09/13/21 08:15 Blood - Blood Aerobic Blood Culture - Preliminary 09/13/21 08:15 Blood - Blood Blood Culture Gram Stain - Final 09/13/21 08:15 Blood - Blood Anaerobic Blood Culture - Preliminary No growth in 24 hours. 09/13/21 08:15 Blood - Blood Gram Stain - Final Microbiology Data (last 24 hrs): 09/13/21 10:30 Clean Catch Urine [place] Count - Final <10,000 CFU/ML. 09/13/21 10:30 Clean Catch Urine - Final MIXED LEXY. 09/13/21 08:00 Blood - Blood Blood Culture Gram Stain - Final 09/13/21 08:00 Blood - Blood Gram Stain - Final 09/13/21 08:15 Blood - Blood Blood Culture Gram Stain - Final 09/13/21 08:15 Blood - Blood Gram Stain - Final Assessment And Plan - Plan Physical exam: General: Alert, Oriented x3, Cooperative, Obese HEENT: Atraumatic Neck: Supple Respiratory: Clear to auscultation bilaterally, Normal air movement Cardiovascular: No edema, Normal pulses, Regular rate/rhythm, Normal S1 S2 Capillary refill: <2 Seconds Gastrointestinal: Normal bowel sounds, Soft and benign, Non-distended Integumentary: Diabetic ulcer (To right foot. Extensive swelling noted. 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 D ue to nonhealing nature of ulcer/clinical condition/history will treat as true osteomyelitis. Patient will require 6 weeks of IV antibiotics. Recommend PICC line placement. Preliminary wound culture growing gram-positive cocci. Awaiting full culture report. Continue IV vancomycin, will tailor antibiotics based off full wound culture report. Vancomycin trough goal of 12-17. Vancomycin trough obtained on 09/14 the below therapeutic range at 9.7, dose adjusted---frequency increased to q12. Patient has multiple comorbidities that influence wound healing including but not limited to: Protein caloric malnutrition, diabetes uncontrolled and anemia. Continue to monitor inflammatory markers including CRP and ESR. CRP: 235, ESR: 1. Bacteremia Source of infection: Infected right diabetic foot ulcer. Blood cultures obtained on 09/13 growing gram-positive cocci in 4/4 bottles. Awaiting full culture report. Continue IV vancomycin at this time. Lower back pain Patient's initial complaint on admission was all lumbar back pain. Patient states that the pain is severe in nature and radiates down his leg, pain could be due to sciatica. CT negative for any acute abnormalities. Awaiting full blood culture report, if bacteria growing is Staph aureus there is concern vertebral osteomyelitis via hematological spread. Recommend MRI of the lumbar spine. Diabetes Uncontrolled, hemoglobin A1c of 10.6. Strict glucose monitoring needed in order for antibiotics to work. Anemia Continue to monitor H&H Leukocytosis Resolve. Continue to monitor WBC trend. Protein caloric malnutrition Low albumin, recommend supplemental Glucerna protein drinks. -medical management per primary team -continue monitor for signs of infection Plan of care discussed with Dr. green Thank you for consultation.
[2021-09-15] MEDS ORDERED: MORPHINE 4 MG/ML SYR IV ONE (11:08)
[2021-09-15] MEDS ORDERED: BUPIVACAINE 0.25% PF 10 ML VIAL ONE (13:29)
[2021-09-15] MEDS ORDERED: MIDAZOLAM HCL 2 MG/2 ML INJ ONE (13:31)
[2021-09-15] MEDS ORDERED: propofoL 200 MG/20 ML VIAL IV ONE (13:31)
[2021-09-15] MEDS ORDERED: FENTANYL CITR 100 MCG/2 ML ONE ×2 (13:31→14:09)
[2021-09-15] MEDS ORDERED: KETOROLAC 30 MG/ML INJ ONE (13:32)
[2021-09-15] MEDS ORDERED: ONDANSETRON 4 MG/2 ML VIAL ONE (13:32)
[2021-09-15] MEDS ORDERED: LIDOCAINE 2% MPF 5 ML VIAL ONE (13:32)
[2021-09-15] MEDS ORDERED: dexAMETHasone 4 MG/ML VIAL ONE (13:32)
[2021-09-15] MEDS ORDERED: SODIUM HYPOCHLORITE 0.25% 473 ML ONE (14:19)
[2021-09-15] MEDS ORDERED: LIDOCAINE 1% W/EPI 1:100,000 MDV 20 ML VIAL ONE (14:34)
--- NOTE | 2021-09-15 14:36 | P.PN ---
Subjective Date of Service: 09/15/21 Chief Complaint: Right foot cellulitis Patient complaining of back pain-specifically in the sacrum and inability to ambulate due to the pain. No recorded fever. Physical Examination - Vital Signs Temperature: 97.3 F Blood Pressure: 143/78 Pulse: 92 Respirations: 20 Pulse Ox (%): 98 - Studies Microbiology Data (last 24 hrs): 09/13/21 10:30 Clean Catch Urine [place] Count - Final <10,000 CFU/ML. 09/13/21 10:30 Clean Catch Urine - Final MIXED LEXY. 09/13/21 08:00 Blood - Blood Blood Culture Gram Stain - Final 09/13/21 08:00 Blood - Blood Gram Stain - Final 09/13/21 08:15 Blood - Blood Blood Culture Gram Stain - Final 09/13/21 08:15 Blood - Blood Gram Stain - Final Assessment And Plan - Plan Physical exam GEN: Alert, oriented, NAD HEENT: Normal conjunctiva, sclera anicteric CV: Regular rate and rhythm, no edema Pulm: Clear to auscultation bilaterally, no rhonchi or rales. ABD: Soft, nontender, no organomegaly. MSK: No joint tenderness, no chest wall tenderness. Patient unable to turn to the side for me to examine his spine because of pain. Integumentary: No rashes Neuro: Normal speech, normal affect. Assessment: Right foot infected wound Coagulase positive staph bacteremia Cellulitis/abscess of right foot History of Charcot's foot Acute back pain Hypertension Diabetes mellitus type 2: Plan: Continue IV vancomycin Infectious diseases following. Meropenem discontinued. Will obtain MRI of the lumbar and sacrum to rule out discitis and osteomyelitis as well as cord compression. Patient scheduled for wound debridement today by Dr. Hays. Aggressive blood sugar control. Continue insulin sliding scale. Pain management as needed Physical therapy after MRI.
--- NOTE | 2021-09-15 14:49 | P.OP ---
Preoperative diagnosis: RIGHT foot deep space infection with abscess Postoperative diagnosis: RIGHT foot deep space infection with abscess Primary procedure: Debridement of RIGHT foot deep space infection Anesthesia: GETA + Local Estimated blood loss: < 50cc Specimen: debridement tissue, cultures Findings: RIGHT foot deep space infection with abscess - multiloculated Complications: None Transferred to: Recovery Room Condition: Good
[2021-09-15] MEDS: HYDROMORPHONE HCL 1 MG/ML INJ ONE ×2 (15:15→15:20)
--- NOTE | 2021-09-15 21:32 | RAD REPORT ---
EXAM DESCRIPTION: RAD - Chest Single View - 09/15/2021 9:25 pm CLINICAL HISTORY: PICC line placement COMPARISON: September 13 FINDINGS: Portable chest was obtained following placement of a right upper extremity PICC line. The catheter tip is in the mid SVC.
[2021-09-15] MEDS: HYDROCODONE/APAP 7.5/325 MG TAB PO PRN (22:08)
[2021-09-15] MEDS: LIDOCAINE 4% PATCH TOP SCH (23:33)
[2021-09-16] MEDS: CYCLOBENZAPRINE 10 MG TAB PO PRN (00:33)
--- NOTE | 2021-09-16 01:32 | OP ---
Date of Procedure: 09/15/2021 Surgeon: Franklyn Hays MD, Preoperative Diagnosis: Right foot deep space infection with abscess. Postoperative Diagnosis: Right foot deep space infection with abscess. Procedure Performed: A debridement right foot deep space infection. Anesthesia: General endotracheal plus local with 0.25% Marcaine. Estimated Blood Loss: Less than 30 cc. Specimen: 1.Debridement tissue. 2.Cultures for both aerobic and anaerobic speciation. Findings: 1.Right foot deep space infection with multiloculated abscesses. 2.The patient continued to have oozing, likely due to his recent blood thinner usage. Complications: None. The patient was transferred to recovery room in good condition. Procedure In Detail: After informed consent was obtained, the patient was brought to the operating r oom, prepped and draped in the usual sterile fashion after adequate anesthesia was achieved. The awa ntar aspect of the right foot, which had a significant Charcot arthropathy, was examined. There was a fluid emanating from 2 punctate holes on the plantar aspect of the midfoot. This was circumferenti ally dissected using a 15 blade down to subcutaneous tissues. Electrocautery was used to dissect bryant n to the spaces. Ultimately a digital examination was performed and a large amount of purulent absce ss material was encountered in a multiloculated midfoot space abutting up to the bone. This was comp letely cleared out at this point. The area required extensive hemostasis with electrocautery. Pulse lavage was then performed to clean out the area and electrocautery was used once again, at this poin t, to help achieve hemostasis. Cultures were already sent for both aerobic and anaerobic speciation. Debridement tissue was sent off for pathologic examination. The wound was then packed with Dakin's 0.25% soaked Kerlix and pressure dressing was placed over the area. Again hemostasis was achieved a t the end of procedure. The patient tolerated the procedure well without evidence of complication an d transferred to PACU in good condition. All counts were correct at the end of the case. TK/MODL Voice ID: [id number] Report ID: [id number]
[2021-09-16 04:33] LABS: Absolute Lymphocytes (CBC) 1.1 K/uL (0.7-4.9); Hematocrit 24.6 % (39.6-49.0); Lymphocytes % 18.2 % (15.3-44.8); MPV 6.6 fL (7.6-11.3); RBC Red Blood Cell Count 2.86 M/uL (4.33-5.43)
[2021-09-16 04:46] LABS: BUN Blood Urea Nitrogen 9 mg/dL (7-18); Bicarbonate 28 mmol/L (21-32); Glucose Level 221 mg/dL (74-106); Potassium 3.1 mmol/L (3.5-5.1); Sodium Level 132 mmol/L (136-145)
[2021-09-16] MEDS: DAPAGLIFLOZIN PROPANEDIOL 5 MG PO SCH (08:23)
[2021-09-16] MEDS: INSULIN -REGULAR HUMAN 50 UNIT/0.5 ML ML SQ SCH ×4 (08:29→21:12)
[2021-09-16] MEDS: lisinopriL 20 MG TAB PO SCH (08:30)
[2021-09-16] MEDS: LIDOCAINE 4% PATCH TOP SCH (08:30)
[2021-09-16] MEDS: VANCOMYCIN 2 GM in NA CHLORIDE 0.9% 500 ML IVPB SCH (08:30)
[2021-09-16] MEDS: METFORMIN HCL 500 MG TAB PO SCH ×2 (08:30→17:30)
[2021-09-16] MEDS: MORPHINE 2 MG/ML SYR IV PRN (11:32)
[2021-09-16] MEDS: NA CHLORIDE 0.9% 1,000 ML IV SCH (11:36)
--- NOTE | 2021-09-16 12:12 | P.PN ---
Subjective Date of Service: 09/16/21 Chief Complaint: Right foot cellulitis Patient seen and examined at bedside, status post surgical I and D/debridement performed on 09/15. Surgery went well, no complications. Review of Systems 10-point ROS is otherwise unremarkable Physical Examination - Vital Signs Temperature: 97.7 F Blood Pressure: 143/70 Pulse: 90 Respirations: 20 Pulse Ox (%): 94 - Studies Laboratory Last Values WBC 11.10 K/uL (4.3-10.9) H 09/13/21 08:00 RBC 3.53 M/uL (4.33-5.43) L 09/13/21 08:00 Hgb 10.2 g/dL (13.6-17.9) L 09/13/21 08:00 Hct 30.4 % (39.6-49.0) L 09/13/21 08:00 MCV 86.0 fL (80-100) 09/13/21 08:00 MCH 28.9 pg (27.0-35.0) 09/13/21 08:00 MCHC 33.6 g/dL (32.0-36.0) 09/13/21 08:00 RDW 13.7 % (12.1-15.2) 09/13/21 08:00 Plt Count 439 K/uL (152-406) H 09/13/21 08:00 MPV 6.6 fL (7.6-11.3) L 09/13/21 08:00 Neutrophils % 87.0 % (41.7-73.7) H 09/13/21 08:00 Lymphocytes % 7.8 % (15.3-44.8) L 09/13/21 08:00 Monocytes % 4.9 % (3.3-12.3) 09/13/21 08:00 Eosinophils % 0.0 % (0-4.4) 09/13/21 08:00 Basophils % 0.3 % (0-1.3) 09/13/21 08:00 Absolute Neutrophils 9.6 K/uL (1.8-8.0) H 09/13/21 08:00 Segmented Neutrophils 79 % (40-80) 09/13/21 08:00 Absolute Lymphocytes 0.9 K/uL (0.7-4.9) 09/13/21 08:00 Lymphocytes 15 % (15-42) 09/13/21 08:00 Monocytes 6 % (0-10) 09/13/21 08:00 Absolute Monocytes 0.5 K/uL (0.1-1.3) 09/13/21 08:00 Absolute Eosinophils 0.0 K/uL (0-0.5) 09/13/21 08:00 Absolute Basophils 0.0 K/uL (0-0.5) 09/13/21 08:00 Platelet Estimate Adeq 09/13/21 08:00 Morphology Comment Not seen (NOT SEEN) 09/13/21 08:00 PT 16.3 SECONDS (9.5-12.5) H 09/13/21 08:00 INR 1.41 09/13/21 08:00 APTT 30.8 SECONDS (24.3-36.9) 09/13/21 08:00 Sodium 127 mmol/L (136-145) L 09/13/21 08:00 Potassium 3.7 mmol/L (3.5-5.1) 09/13/21 08:00 Chloride 91 mmol/L (98-107) L 09/13/21 08:00 Carbon Dioxide 22 mmol/L (21-32) 09/13/21 08:00 BUN 7 mg/dL (7-18) 09/13/21 08:00 Creatinine 0.62 mg/dL (0.55-1.3) 09/13/21 08:00 Estimated GFR > 90 mL/min (=/>90) 09/13/21 08:00 Glucose 289 mg/dL (74-106) H 09/13/21 08:00 Lactic Acid 3.2 mmol/L (0.4-2.0) H 09/13/21 08:00 Calcium 8.9 mg/dL (8.5-10.1) 09/13/21 08:00 Total Bilirubin 0.7 mg/dL (0.2-1.0) 09/13/21 08:00 Direct Bilirubin 0.2 mg/dL (0-0.2) 09/13/21 08:00 AST 14 U/L (15-37) L 09/13/21 08:00 ALT 19 U/L (12-78) 09/13/21 08:00 Alkaline Phosphatase 150 U/L (45-117) H 09/13/21 08:00 Creatine Kinase 18 U/L (39-308) L 09/13/21 08:00 CK-MB (CK-2) < 1.0 ng/mL (1.0-3.6) L 09/13/21 08:00 Rapid Troponin I < 0.02 ng/mL (0.0-0.045) 09/13/21 08:00 C-Reactive Protein 235.00 mg/L (<3.00) H 09/13/21 08:00 Serum Total Protein 8.1 g/dL (6.4-8.2) 09/13/21 08:00 Albumin 1.8 g/dL (3.4-5.0) L 09/13/21 08:00 Globulin 6.3 g/dL (2.3-3.5) H 09/13/21 08:00 Albumin/Globulin Ratio 0.3 (1.1-1.8) L 09/13/21 08:00 Amylase 29 U/L (25-115) 09/13/21 08:00 Lipase 147 U/L (73-393) 09/13/21 08:00 Procalcitonin 0.31 ng/mL (<0.050) H 09/13/21 08:00 Urine pH 5.0 (5.0-7.0) 09/13/21 10:37 Ur Specific [place] >=1.030 (1.005-1.030) 09/13/21 10:37 Glucose (UA)(Auto) 2+ (Negative) H 09/13/21 10:37 Urine Ketones 4+ (Negative) H 09/13/21 10:37 Urine Blood 2+ (Negative) H 09/13/21 10:37 Urine Nitrite Negative (Negative) 09/13/21 10:37 Ur Leukocyte Esterase Negative (Negative) 09/13/21 10:37 Urine RBC <5 /HPF (NONE SEEN) 09/13/21 10:30 Urine WBC None seen /HPF (<5) 09/13/21 10:30 Ur Squamous Epith Cells 10-20 /HPF (NONE SEEN) H 09/13/21 10:30 Urine Bacteria 20-50 /HPF (NONE SEEN) H 09/13/21 10:30 Fine Granular Casts 5-10 /LPF (NONE SEEN) 09/13/21 10:30 Urine Culture Reflexed Reflexed 09/13/21 10:30 Urine Total Protein 2+ (Negative) H 09/13/21 10:37 SARS-CoV-2 Rap RNA(RT-PCR) Negative (NEGATIVE) 09/13/21 08:44 Microbiology Data (last 24 hrs): 09/13/21 08:15 Blood - Blood Aerobic Blood Culture - Final Staph Aureus 09/13/21 08:15 Blood - Blood Blood Culture Gram Stain - Final 09/13/21 08:15 Blood - Blood Anaerobic Blood Culture - Final Staph Aureus 09/13/21 08:15 Blood - Blood Gram Stain - Final 09/13/21 08:00 Blood - Blood Aerobic Blood Culture - Final Staph Aureus 09/13/21 08:00 Blood - Blood Blood Culture Gram Stain - Final 09/13/21 08:00 Blood - Blood Anaerobic Blood Culture - Final Staph Aureus 09/13/21 08:00 Blood - Blood Gram Stain - Final 09/13/21 10:30 Clean Catch Urine [place] Count - Final <10,000 CFU/ML. 09/13/21 10:30 Clean Catch Urine - Final MIXED LEXY. Assessment And Plan - Plan Physical exam: General: Alert, Oriented x3, Cooperative, Obese HEENT: Atraumatic Neck: Supple Respiratory: Clear to auscultation bilaterally, Normal air movement Cardiovascular: No edema, Normal pulses, Regular rate/rhythm, Normal S1 S2 Capillary refill: <2 Seconds Gastrointestinal: Normal bowel sounds, Soft and benign, Non-distended Integumentary: Diabetic ulcer (To right foot. Extensive swelling noted. Chartcot abnormality.) Conclusions/Impression: Antibiotics: Rocephin Start: 09/16 Indication: Osteomyelitis/bacteremia Vancomycin Start: 09/13 Stop: 09/16 Indication: Osteomyelitis/bacteremia Assessment/plan Chronic nonhealing right diabetic foot ulcer with charcot foot deformity X-ray obtained on 09/13 showed advanced osteomyelitis vs charcot arthropathy. Due to nonhealing nature of ulcer/clinical condition/history will treat as true osteomyelitis. Patient will require 6 weeks of IV antibiotics. Patient had a right arm PICC line placed on 09/16. Blood and wound cultures growing methicillin-susceptible Staphylococcus aureus. Antibiotics de-escalating from IV vancomycin to IV rocphein 2g q24 hr. Due to MSSA bacteremia and there is concern for hematological spread of infection including endocarditis/vertebral osteomyelitis. Will obtain transesophageal echocardiogram and lumbar MRI. However patient will still be on 6 weeks of IV antibiotics which would also be treatment duration for these infections. Patient has multiple comorbidities t hat influence wound healing including but not limited to: Protein caloric malnutrition, diabetes uncontrolled and anemia. Continue to monitor inflammatory markers including CRP and ESR. CRP: 235, ESR: 1. Bacteremia Source of infection: Infected right diabetic foot ulcer. Blood cultures obtained on 09/13 growing methicillin-susceptible Staphylococcus aureus in 4/4 bottles. Antibiotics see escalated from the IV vancomycin to IV Rocephin. Lower back pain Patient's initial complaint on admission was all lumbar back pain. Patient states that the pain is severe in nature and radiates down his leg, pain could be due to sciatica. CT negative for any acute abnormalities. Blood and wound cultures growing methicillin-susceptible Staphylococcus aureus, as such vertebral osteomyelitis via hematological spread remains a concern. Recommend MRI of the lumbar spine. Diabetes Uncontrolled, hemoglobin A1c of 10.6. Strict glucose monitoring needed in order for antibiotics to work. Anemia Continue to monitor H&H Leukocytosis Resolve. Continue to monitor WBC trend. Protein caloric malnutrition Low albumin, recommend supplemental Glucerna protein drinks. -medical management per primary team -continue monitor for signs of infection Plan of care discussed with Dr. green Thank you for consultation.
[2021-09-16] MEDS ORDERED: HYDROMORPHONE HCL 2 MG/ML inj IV ONE (12:21)
--- NOTE | 2021-09-16 12:40 | P.PN ---
Subjective Date of Service: 09/16/21 Chief Complaint: Right foot cellulitis Patient still complaining of back pain and inability to get up and ambulate. Status right foot post wound debridement, drainage of abscess, and wound packing. Physical Examination - Vital Signs Temperature: 97.7 F Blood Pressure: 143/70 Pulse: 90 Respirations: 20 Pulse Ox (%): 94 - Physical Exam General: Alert - Studies Microbiology Data (last 24 hrs): 09/13/21 08:15 Blood - Blood Aerobic Blood Culture - Final Staph Aureus 09/13/21 08:15 Blood - Blood Blood Culture Gram Stain - Final 09/13/21 08:15 Blood - Blood Anaerobic Blood Culture - Final Staph Aureus 09/13/21 08:15 Blood - Blood Gram Stain - Final 09/13/21 08:00 Blood - Blood Aerobic Blood Culture - Final Staph Aureus 09/13/21 08:00 Blood - Blood Blood Culture Gram Stain - Final 09/13/21 08:00 Blood - Blood Anaerobic Blood Culture - Final Staph Aureus 09/13/21 08:00 Blood - Blood Gram Stain - Final 09/13/21 10:30 Clean Catch Urine [place] Count - Final <10,000 CFU/ML. 09/13/21 10:30 Clean Catch Urine - Final MIXED LEXY. Assessment And Plan - Plan Physical exam GEN: Alert, oriented, NAD HEENT: sclera anicteric CV: Regular rate and rhythm, no edema Pulm: Clear to auscultation bilaterally, no rhonchi or rales. ABD: Soft, nontender, no organomegaly. MSK: Right charcot foot. Integumentary: No rashes. Right foot wound packed and dressed. Neuro: Normal speech, normal affect. Assessment: Right foot MSSA infected wound MSSA bacteremia Cellulitis/abscess of right foot Charcot's foot Acute back pain Hypertension Diabetes mellitus type 2: Plan: Infectious disease input appreciated IV vancomycin changed to IV Rocephin. Infectious diseases following. Meropenem discontinued. MRI of the lumbar and sacrum to rule out discitis and osteomyelitis as well as cord compression is pending Status post wound debridement and abscess drainage on 09/[address] Hays. Aggressive blood sugar control. Continue insulin sliding scale. Pain management as needed Physical therapy after MRI result.
[2021-09-16] MEDS ORDERED: POTASSIUM CL SA 10 MEQ TAB PO ONE (12:42)
--- NOTE | 2021-09-16 14:41 | RAD REPORT ---
EXAM DESCRIPTION: MRI - Spine Lumbar W/Wo Cont- 09/16/2021 2:20 pm CLINICAL HISTORY: Bacteremia and acute back pain Sepsis, severe back pain, fever COMPARISON: MRI SACRUM W/WO dated 09/16/2021 FINDINGS: MRI of the lumbar spine and MRI of the sacrum/coccyx was performed without with gadolinium contrast material. Abnormal marrow signal and enhancement is present at L5-S1 with elevated T2 signal/fluid within the d isc space. This is compatible with spondylo-discitis. There is significant elevated T2 signal and postcontrast enhancement seen in the epidural space sanjay ing the L5 and S1 segments measuring up to 11 mm and resulting in severe canal stenosis. This likely represents developing epidural abscess. Small focus of elevated T2 signal with enhancement seen in the L1 vertebral body could indicate a sma ll area of spinal osteomyelitis developing. IMPRESSION: There is significant spondylo-discitis seen at L5-S1 with evidence of large developing e pidural abscess resulting in severe canal stenosis. Small focus of enhancement in the L1 vertebral body may represent early developing spinal osteomyelit is.
--- NOTE | 2021-09-16 17:47 | P.PN ---
Date of Service: 09/16/21 MRI of the lumbosacral spine results reviewed. It reports an epidural abscess at L5-S1 with resulting severe central canal stenosis. It also showed development osteomyelitis at L1 vertebral body. Plan: Transfer to tertiary center initiated for neurosurgical evaluation. I am told [facility] is for the capacity and did not accept the patient. Transfer to [facility] and [facility] initiated.
[2021-09-16] MEDS: HYDROMORPHONE HCL 0.5 MG/0.5 ML INJ IV PRN (21:10)
[2021-09-17] MEDS: HYDROMORPHONE HCL 0.5 MG/0.5 ML INJ IV PRN (02:31)
[2021-09-17] MEDS: NA CHLORIDE 0.9% 1,000 ML IV SCH ×3 (02:32→22:40)
[2021-09-17 06:05] LABS: Hematocrit 23.6 % (39.6-49.0); Lymphocytes % 20.8 % (15.3-44.8); MPV 6.5 fL (7.6-11.3); RBC Red Blood Cell Count 2.76 M/uL (4.33-5.43)
[2021-09-17 06:25] LABS: BUN Blood Urea Nitrogen 5 mg/dL (7-18); Bicarbonate 29 mmol/L (21-32); Glucose Level 257 mg/dL (74-106); Magnesium 1.9 mg/dL (1.8-2.4); Phosphorus 2.7 mg/dL (2.5-4.9); Sodium Level 133 mmol/L (136-145)
[2021-09-17 06:26] LABS: Potassium 2.9 mmol/L (3.5-5.1)
[2021-09-17] MEDS: KCL 20 MEQ/100 mL IVPB 20 MEQ/100 ML BAG IV SCH ×3 (07:17→13:04)
[2021-09-17] MEDS ORDERED: CEFTRIAXONE 2,000 MG in NA CHLORIDE 0.9% 100 ML IV SCH (09:00)
[2021-09-17] MEDS: DAPAGLIFLOZIN PROPANEDIOL 5 MG PO SCH (09:00)
[2021-09-17] MEDS: INSULIN -REGULAR HUMAN 50 UNIT/0.5 ML ML SQ SCH ×4 (09:18→21:17)
[2021-09-17] MEDS: LIDOCAINE 4% PATCH TOP SCH (09:19)
[2021-09-17] MEDS: METFORMIN HCL 500 MG TAB PO SCH ×2 (09:19→18:06)
[2021-09-17] MEDS: lisinopriL 20 MG TAB PO SCH (09:20)
[2021-09-17] MEDS: HYDROMORPHONE HCL 1 MG/ML INJ IV PRN ×4 (09:32→23:43)
--- NOTE | 2021-09-17 10:32 | P.PN ---
Subjective Date of Service: 09/17/21 Chief Complaint: Right foot cellulitis Patient reports uncontrolled back pain and inability to get up and ambulate. No recorded fever. Physical Examination - Vital Signs Temperature: 97.8 F Blood Pressure: 151/68 Pulse: 81 Respirations: 17 Pulse Ox (%): 94 - Studies Microbiology Data (last 24 hrs): 09/13/21 08:15 Blood - Blood Aerobic Blood Culture - Final Staph Aureus 09/13/21 08:15 Blood - Blood Blood Culture Gram Stain - Final 09/13/21 08:15 Blood - Blood Anaerobic Blood Culture - Final Staph Aureus 09/13/21 08:15 Blood - Blood Gram Stain - Final 09/13/21 08:00 Blood - Blood Aerobic Blood Culture - Final Staph Aureus 09/13/21 08:00 Blood - Blood Blood Culture Gram Stain - Final 09/13/21 08:00 Blood - Blood Anaerobic Blood Culture - Final Staph Aureus 09/13/21 08:00 Blood - Blood Gram Stain - Final Assessment And Plan - Plan Physical exam GEN: Alert, oriented, NAD HEENT: sclera anicteric CV: Regular rate and rhythm, no edema Pulm: Clear to auscultation bilaterally, no rhonchi or rales. ABD: Soft, nontender, no organomegaly. MSK: Right charcot foot. Integumentary: No rashes. Right foot wound packed and dressed. Neuro: Normal speech, normal affect. Assessment: Right foot MSSA infected wound MSSA bacteremia Cellulitis/abscess of right foot Charcot's foot Acute back pain Hypertension Diabetes mellitus type 2: L1 vertebral osteomyelitis L5-S1 epidural abscess L5-S1 Severe central canal stenosis Anemia Plan: Serial blood cultures are positive Infectious disease is following. MRI of the lumbar sacral spine reviewed. Patient with vertebral osteomyelitis and epidural abscess. Continue IV Rocephin. Meropenem discontinued. Transfer to tertiary center to be evaluated by neurosurgery initiated. So far I am told [facility], and [facility] are not able to take him because they are full to capacity. Waiting for response from [facility]. Status post wound debridement and abscess drainage on 09/[address] Hays. Continue wound care with wound packing. Aggressive blood sugar control. Continue insulin sliding scale. Hemoglobin is stable. Anemia likely secondary to sepsis. Monitor CBC and transfuse as needed for hemoglobin less than 7. Pain management as needed
--- NOTE | 2021-09-17 10:55 | P.PN ---
Subjective Date of Service: 09/17/21 Chief Complaint: Right foot cellulitis Patient seen and examined at bedside, for MRI performed on 09/16 showed spondylo-discitis at L5-S1 level with large developing epidural abscess resulting in the spinal cyst canal stenosis as well as full pole enhancement of the L1 vertebrae which could represent early developing vertebral osteomyelitis. Pending transfer for neurosurgical evaluation. Review of Systems 10-point ROS is otherwise unremarkable Physical Examination - Vital Signs Temperature: 97.8 F Blood Pressure: 151/68 Pulse: 81 Respirations: 17 Pulse Ox (%): 94 - Studies Active Medications Cyclobenzaprine HCl (Cyclobenzaprine 10 Mg Tab) 10 mg PO BIDP PRN PRN Reason: MUSCLE SPASMS Last Admin: 09/16/21 00:33 Dose: 10 mg Documented by: Home Med (Dapagliflozin Propanediol [Farxiga]) 5 mg PO DAILY [facility] Last Admin: 09/17/21 09:00 Dose: Not Given Documented by: Hydromorphone HCl (Hydromorphone Hcl 1 Mg/Ml Inj) 1 mg IV Q4H PRN PRN Reason: Pain scale 5-7 (Moderate) Last Admin: 09/17/21 09:32 Dose: 1 mg Documented by: Sodium Chloride (Ns 1000 Ml Ivbag) 1,000 mls @ 75 mls/hr IV .[id number] JENNIFER Last Admin: 09/17/21 09:15 Dose: 1,000 mls Documented by: Potassium Chloride (Kcl 20 Meq/100 Ml Ivpb (Premix)) 20 meq in 100 mls @ 50 mls/hr IV Q2H JENNIFER; Protocol Stop: 09/17/21 12:59 Last Admin: 09/17/21 09:16 Dose: 100 mls Documented by: Cefazolin Sodium 2,000 gm/ (Sodium Chloride) 100 mls @ 200 mls/hr IVPB Q8HR JENNIFER; Protocol Insulin Human Regular (Insulin -Regular Human 50 Unit/0.5 Ml Ml) 0 unit SQ ACHS JENNIFER; Protocol Last Admin: 09/17/21 09:18 Dose: 5 unit Documented by: Lidocaine (Lidocaine 4% Patch) 1 patch TOP DAILY [facility] Last Admin: 09/17/21 09:19 Dose: 1 patch Documented by: Lisinopril (Lisinopril 20 Mg Tab) 20 mg PO DAILY JENNIFER Last Admin: 09/17/21 09:20 Dose: 20 mg Documented by: Metformin HCl (Metformin Hcl 500 Mg Tab) 500 mg PO BIDWM [facility] Last Admin: 09/17/21 09:19 Dose: 500 mg Documented by: Ondansetron HCl (Ondansetron 4 Mg/2 Ml Vial) 4 mg IV Q8H PRN PRN Reason: NAUSEA / VOMITING Last Admin: 09/13/21 22:38 Dose: 4 mg Documented by: Sodium Chloride (Flush Normal Saline 10 Ml) 10 ml IV BID [facility] Last Admin: 09/17/21 09:20 Dose: 10 ml Documented by: Microbiology Data (last 24 hrs): 09/13/21 08:15 Blood - Blood Aerobic Blood Culture - Final Staph Aureus 09/13/21 08:15 Blood - Blood Blood Culture Gram Stain - Final 09/13/21 08:15 Blood - Blood Anaerobic Blood Culture - Final Staph Aureus 09/13/21 08:15 Blood - Blood Gram Stain - Final 09/13/21 08:00 Blood - Blood Aerobic Blood Culture - Final Staph Aureus 09/13/21 08:00 Blood - Blood Blood Culture Gram Stain - Final 09/13/21 08:00 Blood - Blood Anaerobic Blood Culture - Final Staph Aureus 09/13/21 08:00 Blood - Blood Gram Stain - Final Assessment And Plan - Plan Physical exam: General: Alert, Oriented x3, Cooperative, Obese HEENT: Atraumatic Neck: Supple Respiratory: Clear to auscultation bilaterally, Normal air movement Cardiovascular: No edema, Normal pulses, Regular rate/rhythm, Normal S1 S2 Capillary refill: <2 Seconds Musculoskeletal: Lumbar/sacral tenderness, patient states pain is slightly relieved with palpitation. Gastrointestinal: Normal bowel sounds, Soft and benign, Non-distended Integumentary: Diabetic ulcer (To right foot. Extensive swelling noted. 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 Due to nonhealing nature of ulcer/clinical condition/history will treat as true osteomyelitis. Patient will require 6 weeks of IV antibiotics. Patient had a right arm PICC line placed on 09/16. Blood and wound cultures growing methicillin-susceptible Staphylococcus aureus. Antibiotics initially de escalated from IV vancomycin to IV Rocephin due to Q 24 hr dosing in anticipation of being sent home with home health. MRI performed on 09/16 demonstrated large epidural abscess, patient is awaiting transfer for neurosurgi nancy evaluation. Due to this we have switched to be optimal agent of Ancef dosed 2 g Q 8 hr as patient will still be hospitalized. Patient has multiple comorbidities that influence wound healing including but not limited to: Protein caloric malnutrition, diabetes uncontrolled and anemia. Continue to monitor inflammatory markers including CRP and ESR. CRP: 235, ESR: 1. Epidural abscess with possible L1 vertebral body osteomyelitis Patient's initial complaint on admission was lower back pain. Patient states that the pain is severe in nature and radiates down his leg, however denied weakness/numbness/tingling or bowel/bladder incontinence. CT negative for any acute abnormalities. Due to clinical concern an MRI was obtained on 09/16. Findings included a large epidural abscess at L5- S1 level with possible L1 vertebral body osteomyelitis. Pending transfer for neurosurgical evaluation. Source infection: Hematological spread of bacteria from infected left diabetic foot ulcer. Bacteremia Source of infection: Infected right diabetic foot ulcer. Blood cultures obtained on 09/13 growing methicillin-susceptible Staphylococcus aureus in 4/4 bottles. Antibiotics see escalated from the IV vancomycin to IV cefazolin. Repeat cultures obtained on 09/14 and 09/15 are still positive. Additional repeats obtained on 09/17. Source infection not controlled, patient needs immediate transfer for neurosurgical evaluation. Concern for possible endocarditis Recommend patient to have transesophageal echocardiogram due to Staph bacteremia with hematological spread of of infection. Diabetes Uncontrolled, hemoglobin A1c of 10.6. Strict glucose monitoring needed in order for antibiotics to work. Anemia Continue to monitor H&H Leukocytosis Resolve. Continue to monitor WBC trend. Protein caloric malnutrition Low albumin, recommend supplemental Glucerna protein drinks. -medical management per primary team -continue monitor for signs of infection Plan of care discussed with Dr. green Thank you for consultation.
--- NOTE | 2021-09-17 11:57 | RAD REPORT ---
EXAM DESCRIPTION: MRI - MRI SACRUM W/WO - 09/16/2021 2:20 pm CLINICAL HISTORY: Bacteremia and acute back pain COMPARISON: No comparisons FINDINGS: MRI of the lumbar spine and MRI of the sacrum/coccyx was performed without with gadolinium contrast material. Abnormal marrow signal and enhancement is present at L5-S1 with elevated T2 signal/fluid within the d isc space. This is compatible with spondylo-discitis. There is significant elevated T2 signal and postcontrast enhancement seen in the epidural space sanjay ing the L5 and S1 segments measuring up to 11 mm and resulting in severe canal stenosis. This likely represents developing epidural abscess. Small focus of elevated T2 signal with enhancement seen in the L1 vertebral body could indicate a sma ll area of spinal osteomyelitis developing. IMPRESSION: There is significant spondylo-discitis seen at L5-S1 with evidence of large developing e pidural abscess resulting in severe canal stenosis. Small focus of enhancement in the L1 vertebral body may represent early developing spinal osteomyelit is.
[2021-09-17] MEDS: CYCLOBENZAPRINE 10 MG TAB PO PRN (13:09)
[2021-09-17] MEDS ORDERED: CEFAZOLIN 2 GM in NA CHLORIDE 0.9% 100 ML IVPB SCH (17:00)
[2021-09-17] MEDS: NA CHLORIDE 0.9% IVPB SCH (18:00)
[2021-09-17] MEDS: CEFAZOLIN IVPB SCH (18:00)
[2021-09-17] MEDS ORDERED: POTASSIUM 25 MEQ EFFERV TAB PO ONE (20:51)
[2021-09-17] MEDS ORDERED: HYDROCODONE/APAP 7.5/325 MG TAB PO PRN (23:06)
[2021-09-17] MEDS ORDERED: chlordiazePOXIDE HCl 5 MG CAP PO PRN (23:06)
[2021-09-18] MEDS ORDERED: NA CHLORIDE 0.9% 100 ML ONE (01:06)
[2021-09-18] MEDS: NA CHLORIDE 0.9% IVPB SCH ×2 (01:10→09:02)
[2021-09-18] MEDS: CEFAZOLIN IVPB SCH ×2 (01:10→09:02)
[2021-09-18] MEDS: HYDROMORPHONE HCL 1 MG/ML INJ IV PRN ×3 (05:05→13:28)
[2021-09-18 05:44] LABS: BUN Blood Urea Nitrogen 4 mg/dL (7-18); Bicarbonate 29 mmol/L (21-32); Glucose Level 195 mg/dL (74-106); Potassium 3.3 mmol/L (3.5-5.1); Sodium Level 135 mmol/L (136-145)
[2021-09-18 06:52] LABS: Absolute Lymphocytes (CBC) 0.9 K/uL (0.7-4.9); Hematocrit 25.3 % (39.6-49.0); Lymphocytes % 17.2 % (15.3-44.8); MPV 6.4 fL (7.6-11.3); RBC Red Blood Cell Count 2.98 M/uL (4.33-5.43)
[2021-09-18] MEDS: INSULIN -REGULAR HUMAN 50 UNIT/0.5 ML ML SQ SCH ×2 (08:30→11:30)
[2021-09-18] MEDS: DAPAGLIFLOZIN PROPANEDIOL 5 MG PO SCH (09:00)
[2021-09-18] MEDS ORDERED: POTASSIUM CL SA 10 MEQ TAB PO ONE (09:00)
[2021-09-18] MEDS: METFORMIN HCL 500 MG TAB PO SCH (09:01)
[2021-09-18] MEDS: LIDOCAINE 4% PATCH TOP SCH (09:02)
[2021-09-18] MEDS: NA CHLORIDE 0.9% 1,000 ML IV SCH (09:10)
[2021-09-18] MEDS: lisinopriL 20 MG TAB PO SCH (09:13)
--- NOTE | 2021-09-18 10:50 | P.PN ---
Subjective Date of Service: 09/18/21 Chief Complaint: Right foot cellulitis Patient seen and examined at bedside, patient denies any acute complaints. States back pain is well control. Tolerating antibiotics well with no nausea/vomiting/diarrhea. Review of Systems 10-point ROS is otherwise unremarkable Physical Examination - Vital Signs Temperature: 97.8 F Blood Pressure: 126/71 Pulse: 78 Respirations: 20 Pulse Ox (%): 97 - Studies Microbiology 09/13/21 08:15 Blood - Blood Aerobic Blood Culture - Final Staph Aureus 09/13/21 08:15 Blood - Blood Blood Culture Gram Stain - Final 09/13/21 08:15 Blood - Blood Anaerobic Blood Culture - Final Staph Aureus 09/13/21 08:15 Blood - Blood Gram Stain - Final 09/13/21 08:00 Blood - Blood Aerobic Blood Culture - Final Staph Aureus 09/13/21 08:00 Blood - Blood Blood Culture Gram Stain - Final 09/13/21 08:00 Blood - Blood Anaerobic Blood Culture - Final Staph Aureus 09/13/21 08:00 Blood - Blood Gram Stain - Final 09/13/21 10:30 Clean Catch Urine [place] Count - Final <10,000 CFU/ML. 09/13/21 10:30 Clean Catch Urine - Final MIXED LEXY. Assessment And Plan - Plan Physical exam: General: Alert, Oriented x3, Cooperative, Obese HEENT: Atraumatic Neck: Supple Respiratory: Clear to auscultation bilaterally, Normal air movement Cardiovascular: No edema, Normal pulses, Regular rate/rhythm, Normal S1 S2 Capillary refill: <2 Seconds Musculoskeletal: Lumbar/sacral tenderness, patient states pain is slightly relieved with palpitation. Gastrointestinal: Normal bowel sounds, Soft and benign, Non-distended Integumentary: Diabetic ulcer (To right foot. Extensive swelling noted. 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 Due to nonhealing nature of ulcer/clinical condition/history will treat as true osteomyelitis. Patient will require 6 weeks of IV antibiotics. Patient had a right arm PICC line placed on 09/16. Blood and wound cultures growing methicillin-susceptible Staphylococcus aureus. Antibiotics initially de escalated from IV vancomycin to IV Rocephin due to Q 24 hr dosing in anticipation of being sent home with home health. MRI performed on 09/16 demonstrated large epidural abscess, patient is awaiting transfer for neurosurgical evaluation. Due to this we have switched to be optimal agent of Ancef dosed 2 g Q 8 hr as patient will still be hospitalized. Patient has multiple comorbidities that influence wound healing including but not limited to: Protein caloric malnutrition, diabetes (uncontrolled), and anemia. Continue to monitor inflammatory markers including CRP and ESR. CRP: 235, ESR: 1. Epidural abscess with possible L1 vertebral body osteomyelitis Patient's initial complaint on admission was lower back pain. Patient states that the pain is severe in nature and radiates down his leg, however denied weakness/numbness/tingling or bowel/bladder incontinence. CT negative for any acute abnormalities. Due to clinical concern an MRI was obtained on 09/16. Findings included a large epidural abscess at L5- S1 level with possible L1 vertebral body osteomyelitis. Pending transfer for neurosurgical evaluation. Source infection: Hematological spread of bacteria from infected left diabetic foot ulcer. Bacteremia Source of infection: Infected right diabetic foot ulcer. Blood cultures obtained on 09/13 growing methicillin-susceptible Staphylococcus aureus in 4/4 bottles. Antibiotics de-escalated from the IV vancomycin to IV cefazolin. Repeat cultures obtained on 09/14 and 09/15 are still positive. Additional repeats obtained on 09/17 pending. Source infection not controlled, patient needs immediate transfer for neurosurgical evaluation. Concern for possible endocarditis Recommend patient to have transesophageal echocardiogram due to Staph bacteremia with hematological spread of of infection. Diabetes Uncontrolled, hemoglobin A1c of 10.6. Strict glucose monitoring needed in order for antibiotics to work. Anemia Continue to monitor H&H Leukocytosis Resolve. Continue to monitor WBC trend. Protein caloric malnutrition Low albumin, recommend supplemental Glucerna protein drinks. -medical management per primary team -continue monitor for signs of infection Plan of care discussed with Dr. green Thank you for consultation.
[2021-09-18 11:58] VITALS: BP 149/72; TEMP 97.6
[2021-09-18] MEDS: CYCLOBENZAPRINE 10 MG TAB PO PRN (12:47)
[2021-09-18 12:57] VITALS: O2SAT 97
--- NOTE | 2021-09-18 14:17 | P.DS ---
Admission Date: 09/13/21 Discharge Date: 09/18/21 Disposition: TRANSFER TO [facility] Discharge Condition: FAIR Reason for Admission: Right foot cellulitis Brief History of Present Illness: Patient is 51 years of age has been having problems with his right foot for quite some time been complaining of increasing pain swelling on the right lateral aspect of his foot also had a recent fall came into the emergency room also complaining of some pain in his back no fever he is seen Dr. Coulter before he was advised to follow-up at [facility] see an infectious disease doctor Hospital Course: Discharge diagnosis Right foot MSSA infected wound MSSA bacteremia Cellulitis/abscess of right foot Charcot's foot Acute back pain Hypertension Diabetes mellitus type 2: L1 vertebral osteomyelitis L5-S1 epidural abscess L5-S1 Severe central canal stenosis Anemia Patient admitted to the medical floor and started on aggressive antibiotic therapy-IV vancomycin and IV meropenem. Serial blood cultures grew MSSA-about 3 sets of blood cultures. Most recent blood culture 09/17 has shown no growth to date. Infectious disease consulted to assist with management. Antibiotics scaled down to cefazolin. Status post wound debridement and abscess drainage on 09/[address] Hays. Wound packed and dressed. MRI of the lumbar sacral spine done due to acute back pain. It reported L1 vertebral osteomyelitis and L5-S1 epidural abscess. Case discussed with neurology and hospitalist [facility]. Patient accepted for transfer Aggressive blood sugar control with insulin sliding scale. Hemoglobin was stable. Anemia likely secondary to sepsis. Vitals are stable for transfer. Vital Signs/Physical Exam: Temp Pulse Resp BP Pulse Ox 97.6 F 83 20 149/72 H 99 09/18/21 11:57 09/18/21 11:57 09/18/21 13:28 09/18/21 11:57 09/18/21 11:57 General: Alert, In no apparent distress, Oriented x3 HEENT: Mucous membr. moist/pink Neck: JVD not distended Respiratory: Clear to auscultation bilaterally, Normal air movement Cardiovascular: Regular rate/rhythm, Normal S1 S2, Edema (Right lower extremity) Gastrointestinal: Normal bowel sounds, Soft and benign, Non-distended, No tenderness Musculoskeletal: Other (Right charcot foot) Neurological: Other (No focal motor deficit.) Laboratory Data at Discharge: WBC 5.10 K/uL (4.3-10.9) 09/18/21 06:47 Hgb 8.5 g/dL (13.6-17.9) L 09/18/21 06:47 Hct 25.3 % (39.6-49.0) L 09/18/21 06:47 Plt Count 255 K/uL (152-406) 09/18/21 06:47 PT 16.3 SECONDS (9.5-12.5) H 09/13/21 08:00 INR 1.41 09/13/21 08:00 APTT 30.8 SECONDS (24.3-36.9) 09/13/21 08:00 Sodium 135 mmol/L (136-145) L 09/18/21 05:10 Potassium 3.3 mmol/L (3.5-5.1) L 09/18/21 05:10 BUN 4 mg/dL (7-18) L 09/18/21 05:10 Creatinine 0.48 mg/dL (0.55-1.3) L 09/18/21 05:10 Glucose 195 mg/dL (74-106) H 09/18/21 05:10 Phosphorus 2.7 mg/dL (2.5-4.9) 09/17/21 05:50 Magnesium 1.9 mg/dL (1.8-2.4) 09/17/21 05:50 Total Bilirubin 0.5 mg/dL (0.2-1.0) 09/14/21 04:34 AST 8 U/L (15-37) L 09/14/21 04:34 ALT 14 U/L (12-78) 09/14/21 04:34 Alkaline Phosphatase 118 U/L (45-117) H 09/14/21 04:34 Amylase 29 U/L (25-115) 09/13/21 08:00 Lipase 147 U/L (73-393) 09/13/21 08:00 Home Medications: Dapagliflozin Propanediol [Farxiga] 5 mg PO DAILY 04/29/20 Lisinopril [Zestril] 20 mg PO DAILY 04/29/20 Cyclobenzaprine [Flexeril*] 10 mg PO BIDP PRN tab 09/18/21 Hydrocodone 7.5/APAP 325 [[place] 7.5/325 mg*] 1 tab PO Q6H PRN tab 09/18/21 Hydromorphone [Dilaudid*] 1 mg IV Q4H PRN ml 09/18/21 Insulin -Regular Human [Novolin -R*] See Protocol SQ ACHS ml 09/18/21 Lidocaine 4% Patch [Lidoderm 5% Patch*] 1 patch TOP DAILY patch 09/18/21 chlordiazePOXIDE HCl [Librium*] 10 mg PO TID PRN cap 09/18/21 Followup: Unknown,U [Primary Care Provider] - Time spent managing pt's care (in minutes): 42
[2021-09-18] MEDS ORDERED: CEFAZOLIN 2 GM in NA CHLORIDE 0.9% 100 ML IVPB SCH (17:00)
== END 2021-09-18 15:17 | disposition short-term general hospital (02) | DRG 853 ==
LOC: ER 07:20 → ERHOLD 11:16 → 2ND 16:05
PROVIDERS: ADMIT Internal Medicine Sleep Medicine; ATTEND Internal Medicine
PROC: 02HV33Z Insertion of Infusion Device into Superior Vena Cava, Percutaneous Approach (ICD-10-PCS; 2021-09-15)
PROC: 0JBQ0ZZ Excision of Right Foot Subcutaneous Tissue and Fascia, Open Approach (ICD-10-PCS; principal; 2021-09-15 12:00)
DX: A41.01 Sepsis due to Methicillin susceptible Staphylococcus aureus (principal); G06.2 Extradural and subdural abscess, unspecified; M86.671 Other chronic osteomyelitis, right ankle and foot; L03.115 Cellulitis of right lower limb; L02.611 Cutaneous abscess of right foot; E87.1 Hypo-osmolality and hyponatremia; E46 Unspecified protein-calorie malnutrition; M46.26 Osteomyelitis of vertebra, lumbar region; E11.69 Type 2 diabetes mellitus with other specified complication; E11.610 Type 2 diabetes mellitus with diabetic neuropathic arthropathy; E11.621 Type 2 diabetes mellitus with foot ulcer; L97.519 Non-pressure chronic ulcer of other part of right foot with unspecified severity; M21.6X1 Other acquired deformities of right foot; M54.50 Low back pain, unspecified; D64.9 Anemia, unspecified; I10 Essential (primary) hypertension; Z79.84 Long term (current) use of oral hypoglycemic drugs; Z68.33 Body mass index [BMI] 33.0-33.9, adult; Z79.899 Other long term (current) drug therapy; Z79.01 Long term (current) use of anticoagulants; Z79.4 Long term (current) use of insulin; Z87.891 Personal history of nicotine dependence; Z20.822 Contact with and (suspected) exposure to COVID-19
CPT/HCPCS: 36415; 36569; 71045; 72131; 72158; 72197; 80048; 80053; 80076; 80202; 81003; 81015; 82150; 82550; 82553; 82947; 83036; 83605; 83690; 83735; 84100; 84132; 84145; 84484; 85025; 85610; 85652; 85730; 86140; 87040; 87070; 87075; 87077; 87086; 87088; 87186; 87205; 88304; 93005; 94760; 96361; 96365; 96375; 99285; A9577; J0690; J0692; J0696; J1100; J1170; J2185; J2250; J2270; J2405; J2704; J3010; J3370; J3480; J7030; J7040; J7050; U0003

== ENCOUNTER 2021-10-01 07:25 | Emergency (ER) | payer BC ==
--- OUTSIDE RECORDS SUMMARY | 2021-10-01 07:31 | XMS REPORT | Continuity of Care Document ---
:1970 Author Organization [facility] t Address [address] [place] [address] Care Team Providers Name Role Phone JT TIERNEY Attending Clinician Unavailable Chris WHITEHEAD Attending Clinician Unavailable Shelbi ERNANDEZ Attending Clinician Unavailable Shahbaz LEWIS Attending Clinician Unavailable [address] Attending Clinician Unavailable JENY Attending Clinician Unavailable Rachid Saavedra DO Attending Clinician Kathie KELLER Attending Clinician Unavailable Jeison GONZÁLES Attending Clinician JEISON Attending Clinician Unavailable Kathie Keller DPM Attending Clinician [facility] Attending Clinician Unavailable Grace GONZALEZ Attending Clinician Dennis GONZÁLES Attending Clinician Doctor Unassigned, Name Attending Clinician Unavailable SANYAL Admitting Clinician Unavailable Payers Payer Name Policy Type Policy Number Effective Date Expiration Date S ource BCBS PPO POS EPO [id number] 2017 00:00:00 CHOICE [employer]BS 2 [id number] 2020 00:00:00 Problems Condition Condition Condition Status Onset Resolution Last Treating Co mments Source Name Details Category Date Date Treatment Clinician Date 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[facility] 2-01 ity of foot foot 00:00: [place] deformity deformity 00 [facility] Branch Diabetic Diabetic Disease Active Unive rs foot foot 9-25 [place] Type 2 Type 2 Disease Active [facility] diabetes diabetes 3-17 ity of mellitus mellitus 00:00: [place] with with 00 Medical diabetic diabetic Branch polyneurop polyneurop athy, athy, without without long-term long-term current current use of use of insulin insulin Obesity Obesity Disease Active Univers (BMI (BMI 3-07 ity of 30-39.9) 30-39.9) 00:00: [place] [facility] Branch Cellulitis Cellulitis Disease Active U nivers of foot, of foot, 3-06 ity of right right 00:00: [place] [facility] Essential Essential Disease Active 2014-09 Uni vers hypertensi hypertensi 0-06 it y of on on 00:00: [address] Branch Erectile Erectile Disease Active 2014-09 Unive rs dysfunctio dysfunctio 0- it y of n, n, 00:00: [place] unspecifie unspecifie 00 Me dical d erectile d erectile Br anch dysfunctio dysfunctio n type n type Allergies, Adverse Reactions, Alerts Allergy Allergy Status Severity Reaction(s) Onset Inactive Treating Comm ents Source Name Type Date Date Clinician NO KNOWN Drug Active Univers ALLERGIE Class ity of S [facility] NO KNOWN Allergy Active [facility] Social History Social Habit Start Date Stop Date Quantity Comments Source Exposure to Not sure [place] of SARS-CoV-2 (event) [facility] Cigarettes smoked 2020-10-20 2020-10-20 Univers ity of current (pack per 00:00:00 00:00:00 [place] ) - Reported Branch Cigarette 2020-10-20 2020-10-20 University of pack-years 00:00:00 00:00:00 [facility] Tobacco use and 2020-10-20 2020-10-20 Never used Universit y of exposure 00:00:00 00:00:00 [facility] Alcohol intake 2020-10-20 2020-10-20 Current drinker Unive rsity of 00:00:00 00:00:00 of alcohol [facility] [place] [facility] (finding) [place] Alcohol Comment 2017-06-13 2017-06-13 4-6 beers a day Univ ersity of 00:00:00 00:00:00 [facility] History of tobacco 2013-08-30 Cigarette Smoker University of use 00:00:00 [facility] Sex [birth year] At [birth year] Universit y of 00:00:00 00:00:00 [facility] Smoking Status Start Date Stop Date Source Former smoker 2020-10-20 00:00:00 2020-10-20 00:00:00 [facility] Medications Ordered Filled Start Stop Current Ordering Indication Dosage Frequency Signature Comments Components Source Medication Medication Date Date Medication? Clinician (SIG) Name Name dapaglifloz 2020-1 Yes 5mg Take 5 mg U nivers in 10-11 by mouth. ity of (FARXIGA) 5 19:20: [place] mg tablet 18 Medical Branch dapaglifloz 2020-1 Yes 5mg Take 5 mg U nivers in 10-11 by mouth. ity of (FARXIGA) 5 19:20: [place] mg tablet 18 Medical Branch dapaglifloz 2020-1 Yes 5mg Take 5 mg U nivers in 10-11 by mouth. ity of (FARXIGA) 5 19:20: [place] mg tablet 18 Medical Branch dapaglifloz 2020-1 Yes 5mg Take 5 mg U nivers in 10-11 by mouth. ity of (FARXIGA) 5 19:20: [place] mg tablet 18 Medical Branch dapaglifloz 2020-1 Yes 5mg Take 5 mg U nivers in 10-11 by mouth. ity of (FARXIGA) 5 19:20: [place] mg tablet 18 Medical Branch dapaglifloz 2020-1 Yes 5mg Take 5 mg U nivers in 10-11 by mouth. ity of (FARXIGA) 5 19:20: [place] mg tablet 18 Medical Branch dapaglifloz 2020-1 Yes 5mg Take 5 mg U nivers in 10-11 by mouth. ity of (FARXIGA) 5 19:20: [place] mg tablet 18 Medical Branch dapaglifloz 2020-1 Yes 5mg Take 5 mg U nivers in 10-11 by mouth. ity of (FARXIGA) 5 19:20: [place] mg tablet 18 Medical Branch dapaglifloz 2020-1 Yes 5mg Take 5 mg U nivers in 23 by mouth. ity of (FARXIGA) 5 19:20: [place] mg tablet 18 Medical Branch dapaglifloz 2020-1 Yes 5mg Take 5 mg U nivers in 10-11 by mouth. ity of (FARXIGA) 5 19:20: [place] mg tablet 18 Medical Branch dapaglifloz 2019-09 Yes 5mg Take 5 mg U nivers in 10-11 by mouth. ity of (FARXIGA) 5 19:20: [place] mg tablet 18 Medical Branch dapaglifloz 2019-09 Yes 5mg Take 5 mg U nivers in 10-11 by mouth. ity of (FARXIGA) 5 19:20: [place] mg tablet 18 Medical Branch NaCl 0.9% 2016-09 Yes 10mL Univers (NS) 0-18 ity of injection 17:12: [place] [address] [place] [address] Branch NaCl 0.9% 2016-09 Yes 10mL Univers (NS) 0-18 ity of injection 17:12: [place] [address] [place] [address] NaCl 0.9% 2016-09 Yes 10mL Univers (NS) 0-18 ity of injection 17:12: [place] [address] [place] [address] NaCl 0.9% 2016-09 Yes 10mL Univers (NS) 0-18 ity of injection 17:12: [place] [address] [place] [address] Branch NaCl 0.9% 2016-09 Yes 10mL Univers (NS) 0-18 ity of injection 17:12: [place] [address] [place] [address] Branch NaCl 0.9% 2016-09 Yes 10mL Univers (NS) 0-18 ity of injection 17:12: [place] [address] [place] [address] NaCl 0.9% 2016-09 Yes 10mL Univers (NS) 0-18 ity of injection 17:12: [place] [address] [place] [address] NaCl 0.9% 2016-09 Yes 10mL Univers (NS) 0-18 ity of injection 17:12: [place] [address] [place] [address] Branch NaCl 0.9% 2016-09 Yes 10mL Univers (NS) 0-18 ity of injection 17:12: [place] [address] [place] [address] Branch NaCl 0.9% 2016-09 Yes 10mL Univers (NS) 0-18 ity of injection 17:12: [place] [address] [place] [address] Branch NaCl 0.9% 2016-09 Yes 10mL Univers (NS) 0-18 ity of injection 17:12: [place] [address] [place] [address] NaCl 0.9% 2016-09 Yes 10mL Univers (NS) 0-18 ity of injection 17:12: [place] [address] [place] [address] Branch NaCl 0.9% 2016-09 Yes 10mL Univers (NS) 0-18 ity of injection 17:12: [place] 10 mL 06 Medical Branch amLODIPine 2016-09 Yes [id number] 10mg Take 1 U nivers 10 mg 0-16 tablet by ity of tablet 00:00: mouth [place] 00 daily. Medical Branch insulin 2016-09 Yes [id number] 40U inject 40 U nivers glargine 0-16 Units ity of 100 unit/mL 00:00: [place] the [place] injection 00 skin at Medical bedtime. Branch blood sugar 2016-09 Yes [id number] Use TID, Univers diagnostic 0-16 DX E11.9 ity o f strip 00:00: ([place] [address] upon [facility] approval) lancets-blo 2016-09 Yes [id number] 1{each} 1 Each 2 Univers od glucose 0-16 (two) ity of strips 30 00:00: times [place] gauge Cmpk 00 daily. Medical Branch Blood-Gluco 2016-09 Yes [id number] Use TID, Univers se Meter 0-16 DX E11.9 ity of Kit 00:00: ([address] approval) sildenafil 2016-09 Yes [id number] Take 1 Tab Univers 25 mg 0-16 PO Daily 1 ity of tablet 00:00: hr (range: [place] 00 30 min - 4 Medical hrs) Branch before sexual activity as needed metFORMIN 2016-09 Yes [id number] 1000mg Take 2 Univers 500 mg 0-16 tablets by ity of tablet 00:00: mouth 2 [place] 00 (two) Medical times Branch daily with meals. hydroCHLORO 2016-09 Yes [id number] 25mg Take 1 Univers thiazide 25 0-16 tablet by ity of mg tablet 00:00: mouth [place] 00 daily. Medical Branch lisinopril 2016-09 Yes [id number] 5mg Take 1 U nivers 5 mg tablet 0-16 tablet by ity of 00:00: mouth [place] 00 daily. Medical Branch amLODIPine 2016-09 Yes [id number] 10mg Take 1 U nivers 10 mg 0-16 tablet by ity of tablet 00:00: mouth [place] 00 daily. Medical Branch insulin 2016-09 Yes [id number] 40U inject 40 U nivers glargine 0-16 Units ity of 100 unit/mL 00:00: [place] injection 00 skin at Medical bedtime. Branch blood sugar 2016-09 Yes [id number] Use TID, Univers diagnostic 0-16 DX E11.9 ity o f strip 00:00: ([facility] upon [facility] approval) lancets-blo 2016-09 Yes [id number] 1{each} 1 Each 2 Univers od glucose 0-16 (two) ity of strips 30 00:00: times [place] gauge Cmpk 00 daily. Medical Branch Blood-Gluco 2016-09 Yes [id number] Use TID, Univers se Meter 0-16 DX E11.9 ity of Kit 00:00: ([facility] upon [facility] approval) sildenafil 2016-09 Yes [id number] Take 1 Tab Univers 25 mg 0-16 PO Daily 1 ity of tablet 00:00: hr (range: [place] 00 30 min - 4 Medical hrs) Branch before sexual activity as needed metFORMIN 2016-09 Yes [id number] 1000mg Take 2 Univers 500 mg 0-16 tablets by ity of tablet 00:00: mouth 2 [place] 00 (two) Medical times Branch daily with meals. hydroCHLORO 2016-09 Yes [id number] 25mg Take 1 Univers thiazide 25 0-16 tablet by ity of mg tablet 00:00: mouth [place] 00 daily. Medical Branch lisinopril 2016-09 Yes [id number] 5mg Take 1 U nivers 5 mg tablet 0-16 tablet by ity of 00:00: mouth [place] 00 daily. Medical Branch amLODIPine 2016-09 Yes [id number] 10mg Take 1 U nivers 10 mg 0-16 tablet by ity of tablet 00:00: mouth [place] 00 daily. Medical Branch insulin 2016-09 Yes [id number] 40U inject 40 U nivers glargine 0-16 Units ity of 100 unit/mL 00:00: under the [place] injection 00 skin at Medical bedtime. Branch blood sugar 2016-09 Yes [id number] Use TID, Univers diagnostic 0-16 DX E11.9 ity o f strip 00:00: ([facility] upon [facility] approval) lancets-blo 2016-09 Yes [id number] 1{each} 1 Each 2 Univers od glucose 0-16 (two) ity of strips 30 00:00: times [place] gauge Cmpk 00 daily. Medical Branch Blood-Gluco 2016-09 Yes [id number] Use TID, Univers se Meter 0-16 DX E11.9 ity of Kit 00:00: ([address] approval) sildenafil 2016-09 Yes [id number] Take 1 Tab Univers 25 mg 0-16 PO Daily 1 ity of tablet 00:00: hr (range: [place] 00 30 min - 4 Medical hrs) Branch before sexual activity as needed metFORMIN 2016-09 Yes [id number] 1000mg Take 2 Univers 500 mg 0-16 tablets by ity of tablet 00:00: mouth 2 [place] 00 (two) Medical times Branch daily with meals. hydroCHLORO 2016-09 Yes [id number] 25mg Take 1 Univers thiazide 25 0-16 tablet by ity of mg tablet 00:00: mouth [place] 00 daily. Medical Branch lisinopril 2016-09 Yes [id number] 5mg Take 1 U nivers 5 mg tablet 0-16 tablet by ity of 00:00: mouth [place] 00 daily. Medical Branch amLODIPine 2016-09 Yes [id number] 10mg Take 1 U nivers 10 mg 0-16 tablet by ity of tablet 00:00: mouth [place] 00 daily. Medical Branch insulin 2016-09 Yes [id number] 40U inject 40 U nivers glargine 0-16 Units ity of 100 unit/mL 00:00: under the [place] injection 00 skin at Medical bedtime. Branch blood sugar 2016-09 Yes [id number] Use TID, Univers diagnostic 0-16 DX E11.9 ity o f strip 00:00: ([address] Branch approval) lancets-blo 2016-09 Yes [id number] 1{each} 1 Each 2 Univers od glucose 0-16 (two) ity of strips 30 00:00: times [place] gauge Cmpk 00 daily. Medical Branch Blood-Gluco 2016-09 Yes [id number] Use TID, Univers se Meter 0-16 DX E11.9 ity of Kit 00:00: ([address] Branch approval) sildenafil 2016-09 Yes [id number] Take 1 Tab Univers 25 mg 0-16 PO Daily 1 ity of tablet 00:00: hr (range: [place] 00 30 min - 4 Medical hrs) Branch before sexual activity as needed metFORMIN 2016-09 Yes [id number] 1000mg Take 2 Univers 500 mg 0-16 tablets by ity of tablet 00:00: mouth 2 [place] 00 (two) Medical times Branch daily with meals. hydroCHLORO 2016-09 Yes [id number] 25mg Take 1 Univers thiazide 25 0-16 tablet by ity of mg tablet 00:00: mouth [place] 00 daily. Medical Branch lisinopril 2016-09 Yes [id number] 5mg Take 1 U nivers 5 mg tablet 0-16 tablet by ity of 00:00: mouth [place] 00 daily. Medical Branch amLODIPine 2016-09 Yes [id number] 10mg Take 1 U nivers 10 mg 0-16 tablet by ity of tablet 00:00: mouth [place] 00 daily. Medical Branch insulin 2016-09 Yes [id number] 40U inject 40 U nivers glargine 0-16 Units ity of 100 unit/mL 00:00: [place] injection 00 skin at Medical bedtime. Branch blood sugar 2016-09 Yes [id number] Use TID, Univers diagnostic 0-16 DX E11.9 ity o f strip 00:00: ([place] [address] upon [facility] Branch approval) lancets-blo 2016-09 Yes [id number] 1{each} 1 Each 2 Univers od glucose 0-16 (two) ity of strips 30 00:00: times [place] gauge Cmpk 00 daily. Medical Branch sildenafil 2016-09 Yes [id number] Take 1 Tab Univers 25 mg 0-16 PO Daily 1 ity of tablet 00:00: hr (range: [place] 00 30 min - 4 Medical hrs) Branch before sexual activity as needed Blood-Gluco 2016-09 Yes [id number] Use TID, Univers se Meter 0-16 DX E11.9 ity of Kit 00:00: ([address] approval) sildenafil 2016-09 Yes [id number] Take 1 Tab Univers 25 mg 0-16 PO Daily 1 ity of tablet 00:00: hr (range: [place] 00 30 min - 4 Medical hrs) Branch before sexual activity as needed metFORMIN 2016-09 Yes [id number] 1000mg Take 2 Univers 500 mg 0-16 tablets by ity of tablet 00:00: mouth 2 [place] 00 (two) Medical times Branch daily with meals. metFORMIN 2016-09 Yes [id number] 1000mg Take 2 Univers 500 mg 0-16 tablets by ity of tablet 00:00: mouth 2 [place] 00 (two) Medical times Branch daily with meals. hydroCHLORO 2016-09 Yes [id number] 25mg Take 1 Univers thiazide 25 0-16 tablet by ity of mg tablet 00:00: mouth [place] 00 daily. Medical Branch lisinopril 2016-09 Yes [id number] 5mg Take 1 U nivers 5 mg tablet 0-16 tablet by ity of 00:00: mouth [place] 00 daily. Medical Branch amLODIPine 2016-09 Yes [id number] 10mg Take 1 U nivers 10 mg 0-16 tablet by ity of tablet 00:00: mouth [place] 00 daily. Medical Branch insulin 2016-09 Yes [id number] 40U inject 40 U nivers glargine 0-16 Units ity of 100 unit/mL 00:00: under the [place] injection 00 skin at Medical bedtime. Branch blood sugar 2016-09 Yes [id number] Use TID, Univers diagnostic 0-16 DX E11.9 ity o f strip 00:00: ([address] approval) lancets-blo 2016-09 Yes [id number] 1{each} 1 Each 2 Univers od glucose 0-16 (two) ity of strips 30 00:00: times [place] gauge Cmpk 00 daily. Medical Branch Blood-Gluco 2016-09 Yes [id number] Use TID, Univers se Meter 0-16 DX E11.9 ity of Kit 00:00: ([place] [address] upon [facility] approval) hydroCHLORO 2016-09 Yes [id number] 25mg Take 1 Univers thiazide 25 0-16 tablet by ity of mg tablet 00:00: mouth [place] 00 daily. Medical Branch sildenafil 2016-09 Yes [id number] Take 1 Tab Univers 25 mg 0-16 PO Daily 1 ity of tablet 00:00: hr (range: [place] 00 30 min - 4 Medical hrs) Branch before sexual activity as needed metFORMIN 2016-09 Yes [id number] 1000mg Take 2 Univers 500 mg 0-16 tablets by ity of tablet 00:00: mouth 2 [place] 00 (two) Medical times Branch daily with meals. hydroCHLORO 2016-09 Yes [id number] 25mg Take 1 Univers thiazide 25 0-16 tablet by ity of mg tablet 00:00: mouth [place] 00 daily. Medical Branch lisinopril 2016-09 Yes [id number] 5mg Take 1 U nivers 5 mg tablet 0-16 tablet by ity of 00:00: mouth [place] 00 daily. Medical Branch lisinopril 2016-09 Yes [id number] 5mg Take 1 U nivers 5 mg tablet 0-16 tablet by ity of 00:00: mouth [place] 00 daily. Medical Branch amLODIPine 2016-09 Yes [id number] 10mg Take 1 U nivers 10 mg 0-16 tablet by ity of tablet 00:00: mouth [place] 00 daily. Medical Branch insulin 2016-09 Yes [id number] 40U inject 40 U nivers glargine 0-16 Units ity of 100 unit/mL 00:00: under the [place] injection 00 skin at Medical bedtime. Branch blood sugar 2016-09 Yes [id number] Use TID, Univers diagnostic 0-16 DX E11.9 ity o f strip 00:00: ([place] [address] upon [facility] insurance Branch approval) lancets-blo 2016-09 Yes [id number] 1{each} 1 Each 2 Univers od glucose 0-16 (two) ity of strips 30 00:00: times [place] gauge Cmpk 00 daily. Medical Branch Blood-Gluco 2016-09 Yes [id number] Use TID, Univers se Meter 0-16 DX E11.9 ity of Kit 00:00: ([place] [address] upon [facility] approval) amLODIPine 2016-09 Yes [id number] 10mg Take 1 U nivers 10 mg 0-16 tablet by ity of tablet 00:00: mouth [place] 00 daily. Medical Branch sildenafil 2016-09 Yes [id number] Take 1 Tab Univers 25 mg 0-16 PO Daily 1 ity of tablet 00:00: hr (range: [place] 00 30 min - 4 Medical hrs) Branch before sexual activity as needed metFORMIN 2016-09 Yes [id number] 1000mg Take 2 Univers 500 mg 0-16 tablets by ity of tablet 00:00: mouth 2 [place] 00 (two) Medical times Branch daily with meals. hydroCHLORO 2016-09 Yes [id number] 25mg Take 1 Univers thiazide 25 0-16 tablet by ity of mg tablet 00:00: mouth [place] 00 daily. Medical Branch lisinopril 2016-09 Yes [id number] 5mg Take 1 U nivers 5 mg tablet 0-16 tablet by ity of 00:00: mouth [place] 00 daily. Medical Branch amLODIPine 2016-09 Yes [id number] 10mg Take 1 U nivers 10 mg 0-16 tablet by ity of tablet 00:00: mouth [place] 00 daily. Medical Branch insulin 2016-09 Yes [id number] 40U inject 40 U nivers glargine 0-16 Units ity of 100 unit/mL 00:00: under the [place] injection 00 skin at Medical bedtime. Branch insulin 2016-09 Yes [id number] 40U inject 40 U nivers glargine 0-16 Units ity of 100 unit/mL 00:00: under the [place] injection 00 skin at Medical bedtime. Branch blood sugar 2016-09 Yes [id number] Use TID, Univers diagnostic 0-16 DX E11.9 ity o f strip 00:00: ([place] [address] upon [facility] approval) lancets-blo 2016-09 Yes [id number] 1{each} 1 Each 2 Univers od glucose 0-16 (two) ity of strips 30 00:00: times [place] gauge Cmpk 00 daily. Medical Branch Blood-Gluco 2016-09 Yes [id number] Use TID, Univers se Meter 0-16 DX E11.9 ity of Kit 00:00: ([facility] upon [facility] approval) blood sugar 2016-09 Yes [id number] Use TID, Univers diagnostic 0-16 DX E11.9 ity o f strip 00:00: ([place] [address] upon [facility] approval) sildenafil 2016-09 Yes [id number] Take 1 Tab Univers 25 mg 0-16 PO Daily 1 ity of tablet 00:00: hr (range: [place] 00 30 min - 4 Medical hrs) Branch before sexual activity as needed metFORMIN 2016-09 Yes [id number] 1000mg Take 2 Univers 500 mg 0-16 tablets by ity of tablet 00:00: mouth 2 [place] 00 (two) Medical times Branch daily with meals. hydroCHLORO 2016-09 Yes [id number] 25mg Take 1 Univers thiazide 25 0-16 tablet by ity of mg tablet 00:00: mouth [place] 00 daily. Medical Branch lisinopril 2016-09 Yes [id number] 5mg Take 1 U nivers 5 mg tablet 0-16 tablet by ity of 00:00: mouth [place] 00 daily. Medical Branch amLODIPine 2016-09 Yes [id number] 10mg Take 1 U nivers 10 mg 0-16 tablet by ity of tablet 00:00: mouth [place] 00 daily. Medical Branch insulin 2016-09 Yes [id number] 40U inject 40 U nivers glargine 0-16 Units ity of 100 unit/mL 00:00: under the [place] injection 00 skin at Medical bedtime. Branch blood sugar 2016-09 Yes [id number] Use TID, Univers diagnostic 0-16 DX E11.9 ity o f strip 00:00: ([facility] upon [facility] approval) lancets-blo 2016-09 Yes [id number] 1{each} 1 Each 2 Univers od glucose 0-16 (two) ity of strips 30 00:00: times [place] gauge Cmpk 00 daily. Medical Branch Blood-Gluco 2016-09 Yes [id number] Use TID, Univers se Meter 0-16 DX E11.9 ity of Kit 00:00: ([facility] upon [facility] approval) lancets-blo 2016-09 Yes [id number] 1{each} 1 Each 2 Univers od glucose 0-16 (two) ity of strips 30 00:00: times [place] gauge Cmpk 00 daily. Medical Branch Blood-Gluco 2016-09 Yes [id number] Use TID, Univers se Meter 0-16 DX E11.9 ity of Kit 00:00: ([facility] upon [facility] approval) sildenafil 2016-09 Yes [id number] Take 1 Tab Univers 25 mg 0-16 PO Daily 1 ity of tablet 00:00: hr (range: [place] 00 30 min - 4 Medical hrs) Branch before sexual activity as needed metFORMIN 2016-09 Yes [id number] 1000mg Take 2 Univers 500 mg 0-16 tablets by ity of tablet 00:00: mouth 2 [place] 00 (two) Medical times Branch daily with meals. hydroCHLORO 2016-09 Yes [id number] 25mg Take 1 Univers thiazide 25 0-16 tablet by ity of mg tablet 00:00: mouth [place] 00 daily. Medical Branch lisinopril 2016-09 Yes [id number] 5mg Take 1 U nivers 5 mg tablet 0-16 tablet by ity of 00:00: mouth [place] 00 daily. Medical Branch amLODIPine 2016-09 Yes [id number] 10mg Take 1 U nivers 10 mg 0-16 tablet by ity of tablet 00:00: mouth [place] 00 daily. Medical Branch insulin 2016- Yes [id number] 40U inject 40 U nivers glargine 0-16 Units ity of 100 unit/mL 00:00: under the [place] injection 00 skin at Medical bedtime. Branch blood sugar 2016-09 Yes [id number] Use TID, Univers diagnostic 0-16 DX E11.9 ity o f strip 00:00: ([facility] upon Medical insurance Branch approval) lancets-blo 2016-09 Yes [id number] 1{each} 1 Each 2 Univers od glucose 0-16 (two) ity of strips 30 00:00: times [place] [facility] Blood-Gluco 2016-09 Yes [id number] Use TID, Univers se Meter 0-16 DX E11.9 ity of Kit 00:00: ([address] Branch approval) sildenafil 2016-09 Yes [id number] Take 1 Tab Univers 25 mg 0-16 PO Daily 1 ity of tablet 00:00: hr (range: [place] 00 30 min - 4 Medical hrs) Branch before sexual activity as needed metFORMIN 2016-09 Yes [id number] 1000mg Take 2 Univers 500 mg 0-16 tablets by ity of tablet 00:00: mouth 2 [place] 00 (two) Medical times Branch daily with meals. hydroCHLORO 2016-09 Yes [id number] 25mg Take 1 Univers thiazide 25 0-16 tablet by ity of mg tablet 00:00: mouth [place] 00 daily. Medical Branch lisinopril 2016-09 Yes [id number] 5mg Take 1 U nivers 5 mg tablet 0-16 tablet by ity of 00:00: mouth [place] 00 daily. Medical Branch amLODIPine 2016-09 Yes [id number] 10mg Take 1 U nivers 10 mg 0-16 tablet by ity of tablet 00:00: mouth [place] 00 daily. Medical Branch insulin 2016-09 Yes [id number] 40U inject 40 U nivers glargine 0-16 Units ity of 100 unit/mL 00:00: under the [place] injection 00 skin at Medical bedtime. Branch blood sugar 2016-09 Yes [id number] Use TID, Univers diagnostic 0-16 DX E11.9 ity o f strip 00:00: ([address] Branch approval) lancets-blo 2016-09 Yes [id number] 1{each} 1 Each 2 Univers od glucose 0-16 (two) ity of strips 30 00:00: times [place] gauge Cmpk 00 daily. Medical Branch Blood-Gluco 2016-09 Yes [id number] Use TID, Univers se Meter 0-16 DX E11.9 ity of Kit 00:00: ([address] Branch approval) sildenafil 2016-09 Yes [id number] Take 1 Tab Univers 25 mg 0-16 PO Daily 1 ity of tablet 00:00: hr (range: [place] 00 30 min - 4 Medical hrs) Branch before sexual activity as needed metFORMIN 2016-09 Yes [id number] 1000mg Take 2 Univers 500 mg 0-16 tablets by ity of tablet 00:00: mouth 2 [place] 00 (two) Medical times Branch daily with meals. hydroCHLORO 2016-09 Yes [id number] 25mg Take 1 Univers thiazide 25 0-16 tablet by ity of mg tablet 00:00: mouth [place] 00 daily. Medical Branch lisinopril 2016-09 Yes [id number] 5mg Take 1 U nivers 5 mg tablet 0-16 tablet by ity of 00:00: mouth [place] 00 daily. Medical Branch amLODIPine 2016-09 Yes [id number] 10mg Take 1 U nivers 10 mg 0-16 tablet by ity of tablet 00:00: mouth [place] 00 daily. Medical Branch insulin 2016-09 Yes [id number] 40U inject 40 U nivers glargine 0-16 Units ity of 100 unit/mL 00:00: under the [place] injection 00 skin at Medical bedtime. Branch blood sugar 2016-09 Yes [id number] Use TID, Univers diagnostic 0-16 DX E11.9 ity o f strip 00:00: ([place] [address] upon [facility] approval) lancets-blo 2016-09 Yes [id number] 1{each} 1 Each 2 Univers od glucose 0-16 (two) ity of strips 30 00:00: times [place] gauge Cmpk 00 daily. Medical Branch Blood-Gluco 2016-09 Yes [id number] Use TID, Univers se Meter 0-16 DX E11.9 ity of Kit 00:00: ([address] approval) sildenafil 2016-09 Yes [id number] Take 1 Tab Univers 25 mg 0-16 PO Daily 1 ity of tablet 00:00: hr (range: [place] 00 30 min - 4 Medical hrs) Branch before sexual activity as needed metFORMIN 2016-09 Yes [id number] 1000mg Take 2 Univers 500 mg 0-16 tablets by ity of tablet 00:00: mouth 2 [place] 00 (two) Medical times Branch daily with meals. hydroCHLORO 2016-09 Yes [id number] 25mg Take 1 Univers thiazide 25 0-16 tablet by ity of mg tablet 00:00: mouth [place] 00 daily. Medical Branch lisinopril 2016-09 Yes [id number] 5mg Take 1 U nivers 5 mg tablet 0-16 tablet by ity of 00:00: mouth [place] 00 daily. Medical [place] Immunizations Ordered Filled Immunization Date Status Comments [facility] e Immunization Name Name Influenza Virus 2020-06-11 Completed Universit y of Vaccine 00:00:00 [facility] Influenza Virus 2020-06-11 Completed Universit y of Vaccine 00:00:00 [facility] Influenza Virus 2020-06-11 Completed Universit y of Vaccine 00:00:00 [facility] Influenza Virus 2020-06-11 Completed Universit y of Vaccine 00:00:00 [facility] Influenza Virus 2020-06-11 Completed Universit y of Vaccine 00:00:00 [facility] Influenza Virus 2020-06-11 Completed Universit y of Vaccine 00:00:00 [facility] Influenza Virus 2020-06-11 Completed Universit y of Vaccine 00:00:00 [facility] Influenza Virus 2020-06-11 Completed Universit y of Vaccine 00:00:00 [facility] Influenza Virus 2020-06-11 Completed Universit y of Vaccine 00:00:00 [facility] Influenza Virus 2020-06-11 Completed Universit y of Vaccine 00:00:00 [facility] Influenza Virus 2020-06-11 Completed Universit y of Vaccine 00:00:00 [facility] Influenza Virus 2020-06-11 Completed Universit y of Vaccine 00:00:00 [facility] Pneumococcal 2016-11-24 Completed University o f Polysaccharide, 00:00:00 [facility] ical PPSV23 (PNEUMOVAX) [place] Influenza Virus 2016-11-24 Completed Universit y of Vaccine Quad IM 3+ 00:00:00 [facility] Pneumococcal 2016-11-24 Completed University o f Polysaccharide, 00:00:00 [place] Med ical PPSV23 (PNEUMOVAX) Branch Influenza Virus 2016-11-24 Completed Universit y of Vaccine Quad IM 3+ 00:00:00 [facility] Pneumococcal 2016-11-24 Completed University o f Polysaccharide, 00:00:00 [place] Med ical PPSV23 (PNEUMOVAX) [place] Influenza Virus 2016-11-24 Completed Universit y of Vaccine Quad IM 3+ 00:00:00 [facility] Pneumococcal 2016-11-24 Completed University o f Polysaccharide, 00:00:00 [facility] ical PPSV23 (PNEUMOVAX) [place] Influenza Virus 2016-11-24 Completed Universit y of Vaccine Quad IM 3+ 00:00:00 [facility] Pneumococcal 2016-11-24 Completed University o f Polysaccharide, 00:00:00 [place] Med ical PPSV23 (PNEUMOVAX) Branch Influenza Virus 2016-11-24 Completed Universit y of Vaccine Quad IM 3+ 00:00:00 [facility] Pneumococcal 2016-11-24 Completed University o f Polysaccharide, 00:00:00 [place] Med ical PPSV23 (PNEUMOVAX) Branch Influenza Virus 2016-11-24 Completed Universit y of Vaccine Quad IM 3+ 00:00:00 [facility] Pneumococcal 2016-11-24 Completed University o f Polysaccharide, 00:00:00 [place] Med ical PPSV23 (PNEUMOVAX) Branch Influenza Virus 2016-11-24 Completed Universit y of Vaccine Quad IM 3+ 00:00:00 [facility] Pneumococcal 2016-11-24 Completed University o f Polysaccharide, 00:00:00 [place] Med ical PPSV23 (PNEUMOVAX) Branch Influenza Virus 2016-11-24 Completed Universit y of Vaccine Quad IM 3+ 00:00:00 [facility] Pneumococcal 2016-11-24 Completed University o f Polysaccharide, 00:00:00 [place] Med ical PPSV23 (PNEUMOVAX) Branch Influenza Virus 2016-11-24 Completed Universit y of Vaccine Quad IM 3+ 00:00:00 [facility] Pneumococcal 2016-11-24 Completed University o f Polysaccharide, 00:00:00 [place] Med ical PPSV23 (PNEUMOVAX) Branch Influenza Virus 2016-11-24 Completed Universit y of Vaccine Quad IM 3+ 00:00:00 [facility] Pneumococcal 2016-11-24 Completed University o f Polysaccharide, 00:00:00 [place] Med ical PPSV23 (PNEUMOVAX) Branch Influenza Virus 2016-11-24 Completed Universit y of Vaccine Quad IM 3+ 00:00:00 [facility] Pneumococcal 2016-11-24 Completed University o f Polysaccharide, 00:00:00 [place] Med ical PPSV23 (PNEUMOVAX) Branch Influenza Virus 2016-11-24 Completed Universit y of Vaccine Quad IM 3+ 00:00:00 [facility] Pneumococcal 2016-11-24 Completed University o f Polysaccharide, 00:00:00 [place] Med ical PPSV23 (PNEUMOVAX) Branch Influenza Virus 2016-11-24 Completed Universit y of Vaccine Quad IM 3+ 00:00:00 [facility] [place] [facility] YRS Branch Td 2016-11-22 Completed University of 00:00:00 [facility] Td 2016-11-22 Completed University of 00:00:00 [facility] [place] [facility] Branch Td 2016-11-22 Completed University of 00:00:00 [place] [facility] Td 2016-11-22 Completed University of 00:00:00 [facility] [place] [facility] Branch Td 2016-11-22 Completed University of 00:00:00 [facility] [place] [facility] Branch Td 2016-11-22 Completed University of 00:00:00 [place] [facility] Td 2016-11-22 Completed University of 00:00:00 [place] [facility] Td 2016-11-22 Completed University of 00:00:00 [facility] [place] [facility] Branch Td 2016-11-22 Completed University of 00:00:00 [facility] [place] [facility] Branch Td 2016-11-22 Completed University of 00:00:00 [place] [facility] Td 2016-11-22 Completed University of 00:00:00 [facility] [place] [facility] Branch Td 2016-11-22 Completed University of 00:00:00 [facility] [place] [facility] Branch Td 2016-11-22 Completed University of 00:00:00 [facility] Vital Signs Vital Name Observation Time Observation Value Comments Source Body temperature 2020-10-20 16:33:00 36.67 Makenzie [facility] Body height 2020-10-20 16:33:00 180.3 cm [facility] Body weight 2020-10-20 16:33:00 121.11 kg [facility] BMI 2020-10-20 16:33:00 37.24 kg/m2 [facility] Body temperature 2020-09-29 15:34:00 36.44 [facility]akenzie [facility] 2020-09-29 15:34:00 121.473 kg [facility] BMI 2020-09-29 15:34:00 37.35 kg/m2 [facility] Systolic blood 2020-08-11 19:17:00 177 mm[Hg] Univer sity of pressure [facility] Diastolic blood 2020-08-11 19:17:00 101 mm[Hg] Unive rsity of pressure [facility] Heart rate 2020-08-11 19:17:00 110 /min [facility] Body temperature 2020-08-11 19:15:00 36.44 Makenzei [facility] Respiratory rate 2020-08-11 19:15:00 16 /min [facility] Body height 2020-08-11 19:15:00 180.3 cm [facility] Body weight 2020-08-11 19:15:00 121.473 kg [facility] BMI 2020-08-11 19:15:00 37.35 kg/m2 [facility] Procedures Procedure Date / Time Performed Performing Clinician Sourc e XR FOOT 3+ VW RIGHT 2020-09-29 16:15:00 Kaye Keller Un [facility] A [facility] ASSIGNMENT OF BENEFITS 2020-08-11 19:07:32 Doctor Unassigned, No [facility] Encounters Start End Encounter Admission Attending Care Care Encounter Source Date/Time Date/Time Type Type Clinicians Facility Department ID 2021-09-18 2021-09-25 Inpatient UR VINCENT TIERNEY Neurosurger 20 [id number] [facility] 16:39:00 18:24:00 MRINALINI y 2021-05-18 2021-05-18 Outpatient SANDRA ERNANDEZ [id number] Sandra 10:15:00 10:15:00 MAGALIS Seybol d 2021-05-15 2021-05-15 Outpatient SANDRA ERNANDEZ [id number] Sandra 00:00:00 00:00:00 MAGALIS Seybol d 2021-04-28 2021-04-28 Outpatient SANDRA ERNANDEZ [id number] Sandra 00:00:00 00:00:00 MAGALIS Seybol d 2021-04-27 2021-04-27 Outpatient SANDRA ERNANDEZ [id number] Sandra 00:00:00 00:00:00 MAGALIS Seybol d 2021-04-22 2021-04-22 Outpatient SANDRA ERNANDEZ [id number] Sandra 00:00:00 00:00:00 MAGALIS Seybol d 2021-04-20 2021-04-20 Outpatient SANDRA ERNANDEZ [id number] Sandra 00:00:00 00:00:00 MAGALIS Seybol d 2021-04-17 2021-04-17 Outpatient BENJAMINEVERETTSANDRA [id number] Sandra 00:00:00 00:00:00 MAGALIS Seybol d 2021-04-17 2021-04-17 Outpatient MARITZA LEWIS SANDRA MCDANIELS [id number] Sandra 00:00:00 00:00:00 Seybol d 2021-04-16 2021-04-16 Outpatient SANDRA ERNANDEZ [id number] Sandra 08:30:00 08:30:00 MAGALIS Seybol d 2021-04-16 2021-04-16 Outpatient [id number] SANDRA MCDANIELS [id number] Sandra 08:20:00 08:20:00 Seybol d 2021-04-06 2021-04-06 Outpatient SANDRA FERMIN [id number] Sandra 00:00:00 00:00:00 ROSALBA Seybol d 2021-04-04 2021-04-04 Outpatient SANDRA FERMIN [id number] Sandra 00:00:00 00:00:00 ROSALBA Seybol d 2020-12-02 2020-12-02 Patient Quentin [facility] [id number] Univers 00:00:00 00:00:00 Outreach Lars PRIMARY [id number] i ty of [facility] [id number] [place] [id number] [address] 2020-11-10 2020-11-10 Outpatient Shaun KELLER [facility] [id number] Univers 09:45:00 09:45:00 KAYE [id number] [facility] 2020-11-10 2020-11-10 Outpatient Shaun KELLER [facility] [id number] Univers 09:45:00 09:45:00 KAYE [facility] 2020-10-31 2020-10-31 Telephone Jeison [facility] [id number] Univers 00:00:00 00:00:00 Rebecca SPECIALTY [id number] ity [id number] [phone] Mo dical JAYDE [address] [facility] 2020-10-20 2020-10-20 [facility] [id number] Univers 10:05:41 13:50:58 Visit Rebecca SPECIALTY [id number] ity [id number] [id number] Mo kylah DONOHUE [address] [facility] 2020-10-20 2020-10-20 Outpatient R ARIANNA [facility] [id number] Univers 09:45:00 09:45:00 KAYE [id number] ity [facility] 2020-10-20 2020-10-20 [facility] [id number] Univers 09:45:00 09:45:00 KAYE ity [facility] 2020-10-13 2020-10-13 Outpatient R JEISON [facility] [id number] Univers 10:30:00 10:30:00 REBECCA [id number] ity [facility] 2020-10-13 2020-10-13 Outpatient R JEISON [facility] [id number] Univers 10:30:00 10:30:00 REBECCA ity [facility] 2020-09-29 2020-09-29 [facility] [id number] Univers 10:03:46 23:59:00 Encounter Kaye PRIMARY [id number] ity of [id number] [id number] Mo dical 807 [place] 2020-09-29 2020-09-29 [facility] [id number] Univers 09:27:17 10:36:22 Visit Kaye PRIMARY [id number] ity of [id number] [id number] Mo dical 198 [place] 2020-09-29 2020-09-29 [facility] [id number] Univers 09:15:00 09:15:00 KAYE [id number] ity of [facility] 2020-09-29 2020-09-29 Outpatient R ARIANNA, [facility] [id number] Univers 09:15:00 09:15:00 KAYE ity of [facility] 2020-09-08 2020-09-08 Outpatient R [facility] [id number] Univers 14:00:00 14:00:00 [id number] ity [facility] 2020-08-11 2020-08-11 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 Display Specialist [facility] UNIVERSIT [id number] Univers 14:45:44 15:00:44 Visit [facility] Teresa [facility] [id number] ity of CL[place]ICS [id number] [id number] [facility] [address] [place] 2020-08-11 2020-08-11 Office Nabila Collins [id number] Univers 13:08:19 14:38:25 Visit [facility] [id number] ity of CL[place]ICS [id number] [id number] [place] [id number] [place] 2020-08-11 2020-08-11 Outpatient [facility] [id number] Univers 13:00:00 13:00:00 [id number] ity of [facility] 2020-08-11 2020-08-11 Outpatient R [facility] [id number] Univers 13:00:00 13:00:00 ity of [facility] 2020-08-11 2020-08-11 Orders Doctor MALISSA [id number] Univers 00:00:00 00:00:00 Only Unassigned, FARHAN [id number] ity of [facility] [id number] [place] [phone] [address] Results Test Description Test Time Test Comments Results Result Comments Source POCT-GLUCOSE METER 2021-09-25 11:26:37 Test Item Value Reference Range Interpretation Comme nts POC-GLUCOSE METER (BESHASHI) 160 mg/dL 70-110 H : TESTED AT [facility] 67 ANJEL (test code = 1538) ADONAY Mckeon, [address]: Plastic Bubble Packer/Techni lucy ID = [id number] for Tian Fletcher (CELLAVISION MANUAL DIFF)2021-09-25 08:29:01 Test Item Value Reference Range Interpretation Comments NEUTROPHILS - REL 73 % (CELLAVISION)(BEAKER) (test code = 2816) LYMPHOCYTES - REL 19 % (CELLAVISION)(BEAKER) (test code = 2817) MONOCYTES - REL 4 % (CELLAVISION)(BEAKER) (test code = 2818) BASOPHILS - REL 3 % (CELLAVISION)(BEAKER) (test code = 2820) MYELOCYTES - REL 1 % 0-0 H (CELLAVISION)(BEAKER) (test code = 2822) NEUTROPHILS - ABS 3.58 K/ul 1.78-5.38 (CELLAVISION)(BEAKER) (test code = 2830) LYMPHOCYTES - ABS 0.93 K/ul 1.32-3.57 L (CELLAVISION)(BEAKER) (test code = 2831) MONOCYTES - ABS 0.20 K/uL 0.30-0.82 L (CELLAVISION)(BEAKER) (test code = 2832) BASOPHILS - ABS 0.15 K/uL 0.01-0.08 H (CELLAVISION)(BEAKER) (test code = 2835) MYELOCYTES-ABS 0.05 K/uL 0.00-0.00 H (CELLAVISION)(BEAKER) (test code = 2837) TOTAL COUNTED (BEAKER) (test code 100 = 1351) MANUAL NRBC PER 100 CELLS 2 /100 WBC 0-0 H (BEAKER) (test code = 1353) WBC MORPHOLOGY (BEAKER) (test Normal code = 487) GIANT PLATELETS (BEAKER) (test Present code = 313) POLYCHROMATOPHILLIC RBCS(BEAKER) 3+ many (test code = 478) ANISOCYTOSIS (BEAKER) (test code 2+ moderate = 961) MICROCYTES (BEAKER) (test code = 2+ moderate 965) ARTIFACT (CELLAVISION)(BEAKER) Present (test code = 3432) PLATELET CONCENTRATION Adequate (CELLAVISION)(BEAKER) (test code = 3438) Plastic Bubble Packer ID - claudia Hoyt comments: Slide comments:CBC W/PLT COUNT & AUTO [id number] 08:29:00 Test Item Value Reference Range Interpretation Comments WHITE BLOOD CELL COUNT (BEAKER) 4.9 K/ L 3.5-10.5 (test code = 775) RED BLOOD CELL COUNT (BEAKER) 2.81 M/ L 4.63-6.08 L (test code = 761) HEMOGLOBIN (BEAKER) (test code = 7.9 GM/DL 13.7-17.5 L 410) HEMATOCRIT (BEAKER) (test code = 25.2 % 40.1-51.0 L 411) MEAN CORPUSCULAR VOLUME (BEAKER) 89.7 fL 79.0-92.2 (test code = 753) MEAN CORPUSCULAR HEMOGLOBIN 28.1 pg 25.7-32.2 (BEAKER) (test code = 751) MEAN CORPUSCULAR HEMOGLOBIN CONC 31.3 GM/DL 32.3-36.5 L (BEAKER) (test code = 752) RED CELL DISTRIBUTION WIDTH 13.8 % 11.6-14.4 (BEAKER) (test code = 412) PLATELET COUNT (BEAKER) (test 269 K/CU MM 150-450 code = 756) MEAN PLATELET VOLUME (BEAKER) 8.8 fL 9.4-12.4 L (test code = 754) NUCLEATED RED BLOOD CELLS 0 /100 WBC 0-0 (BEAKER) (test code = 413) POCT-GLUCOSE [id number] 08:03:44 Test Item Value Reference Range Interpretation Comments POC-GLUCOSE METER 155 mg/dL 70-110 H : TESTED A T [facility] 6720 (BEAKER) (test code = SHILPA Dunn [facility], 1538) 900[address]: Plastic Bubble Packer/Techni lucy ID = [id number] for Marcelino Cabrera BASIC METABOLIC [id number] 06:46:41 Test Item Value Reference Range Interpretation Comments SODIUM (BEAKER) 137 meq/L 136-145 (test code = 381) POTASSIUM (BEAKER) 4.0 meq/L 3.5-5.1 (test code = 379) CHLORIDE (BEAKER) 101 meq/L 98-107 (test code = 382) CO2 (BEAKER) (test 29 meq/L 22-29 code = 355) BLOOD UREA NITROGEN 6 mg/dL 7-21 L (BEAKER) (test code = 354) CREATININE (BEAKER) 0.62 mg/dL 0.57-1.25 (test code = 358) GLUCOSE RANDOM 158 mg/dL 70-105 H (BEAKER) (test code = 652) CALCIUM (BEAKER) 9.2 mg/dL 8.4-10.2 (test code = 697) EGFR (BEAKER) (test 136 mL/min/1.73 ESTIM ATED GFR IS code = 1092) sq m NOT ACCURATE CREATININE CLEARANCE IN PREDICTING GLOMERULAR FILTRATION RATE . ESTIMATED GFR I S NOT APPLICABLE FOR DIALYSIS PATIEN TS. Plastic Bubble Packer ID - ESTRADA MPOCT-GLUCOSE [id number] 17:47:29 Test Item Value Reference Range Interpretation Comments POC-GLUCOSE METER 160 mg/dL 70-110 H : TESTED A T [facility] 6720 (BEAKER) (test code = [facility], 1538) [id number]: Plastic Bubble Packer/Techni lucy ID = [id number] for Marcelino Cabrera POCT-GLUCOSE [id number] 11:07:55 Test Item Value Reference Range Interpretation Comments POC-GLUCOSE METER 185 mg/dL 70-110 H : TESTED A T [facility] 6720 (BEAKER) (test code = [facility], 1538) 07133: Plastic Bubble Packer/Techni lucy ID = [id number] for Alisa Guadarrama POCT-GLUCOSE [id number] 07:59:08 Test Item Value Reference Range Interpretation Comments POC-GLUCOSE METER 202 mg/dL 70-110 H : TESTED A T [facility] 6720 (BEAKER) (test code = [facility], 1538) 19204: Plastic Bubble Packer/Techni lucy ID = [id number] for Bl ban Marcelino (CELLAVISION MANUAL DIFF)2021-09-24 07:06:11 Test Item Value Reference Range Interpretation Comments NEUTROPHILS - REL 71 % (CELLAVISION)(BEAKER) (test code = 2816) LYMPHOCYTES - REL 22 % (CELLAVISION)(BEAKER) (test code = 2817) MONOCYTES - REL 5 % (CELLAVISION)(BEAKER) (test code = 2818) EOSINOPHILS - REL 1 % (CELLAVISION)(BEAKER) (test code = 2819) NEUTROPHILS - ABS 3.48 K/ul 1.78-5.38 (CELLAVISION)(BEAKER) (test code = 2830) LYMPHOCYTES - ABS 1.08 K/ul 1.32-3.57 L (CELLAVISION)(BEAKER) (test code = 2831) MONOCYTES - ABS 0.25 K/uL 0.30-0.82 L (CELLAVISION)(BEAKER) (test code = 2832) EOSINOPHILS - ABS 0.05 K/uL 0.04-0.54 (CELLAVISION)(BEAKER) (test code = 2834) TOTAL COUNTED (BEAKER) (test code = 100 1351) PLT MORPHOLOGY (BEAKER) (test code Normal = 486) HYPERSEGMENTATION Present (CELLAVISION)(BEAKER) (test code = 3445) POLYCHROMATOPHILLIC RBCS(BEAKER) 1+ few (test code = 478) ANISOCYTOSIS (BEAKER) (test code = 1+ few 961) MICROCYTES (BEAKER) (test code = 1+ few 965) ARTIFACT (CELLAVISION)(BEAKER) Present (test code = 3432) PLATELET CONCENTRATION Adequate (CELLAVISION)(BEAKER) (test code = 3438) Plastic Bubble Packer ID - Emily Torres comments: Slide comments:CBC W/PLT COUNT & AUTO [id number] 07:06:05 Test Item Value Reference Range Interpretation Comments WHITE BLOOD CELL COUNT (BEAKER) 4.9 K/ L 3.5-10.5 (test code = 775) RED BLOOD CELL COUNT (BEAKER) 2.75 M/ L 4.63-6.08 L (test code = 761) HEMOGLOBIN (BEAKER) (test code = 7.7 GM/DL 13.7-17.5 L 410) HEMATOCRIT (BEAKER) (test code = 24.5 % 40.1-51.0 L 411) MEAN CORPUSCULAR VOLUME (BEAKER) 89.1 fL 79.0-92.2 (test code = 753) MEAN CORPUSCULAR HEMOGLOBIN 28.0 pg 25.7-32.2 (BEAKER) (test code = 751) MEAN CORPUSCULAR HEMOGLOBIN CONC 31.4 GM/DL 32.3-36.5 L (BEAKER) (test code = 752) RED CELL DISTRIBUTION WIDTH 13.7 % 11.6-14.4 (BEAKER) (test code = 412) PLATELET COUNT (BEAKER) (test 246 K/CU MM 150-450 code = 756) MEAN PLATELET VOLUME (BEAKER) 8.7 fL 9.4-12.4 L (test code = 754) NUCLEATED RED BLOOD CELLS 0 /100 WBC 0-0 (BEAKER) (test code = 413) BASIC METABOLIC [id number] 06:51:21 Test Item Value Reference Range Interpretation Comments SODIUM (BEAKER) 135 meq/L 136-145 L (test code = 381) POTASSIUM (BEAKER) 3.8 meq/L 3.5-5.1 (test code = 379) CHLORIDE (BEAKER) 101 meq/L 98-107 (test code = 382) CO2 (BEAKER) (test 28 meq/L 22-29 code = 355) BLOOD UREA NITROGEN 7 mg/dL 7-21 (BEAKER) (test code = 354) CREATININE (BEAKER) 0.66 mg/dL 0.57-1.25 (test code = 358) GLUCOSE RANDOM 222 mg/dL 70-105 H (BEAKER) (test code = 652) CALCIUM (BEAKER) 9.1 mg/dL 8.4-10.2 (test code = 697) EGFR (BEAKER) (test 127 mL/min/1.73 ESTIM ATED GFR IS code = 1092) sq m NOT ACCURATE CREATININE CLEARANCE IN PREDICTING GLOMERULAR FILTRATION RATE . ESTIMATED GFR I S NOT APPLICABLE FOR DIALYSIS PATIEN TS. Plastic Bubble Packer ID - DEVIKA WBLOOD [id number] 06:01:11 Test Item Value Reference Range Interpretation Comments CULTURE (BEAKER) (test No growth in 5 days code = 1095) BLOOD [id number] 01:01:07 Test Item Value Reference Range Interpretation Comments CULTURE (BEAKER) (test No growth in 5 days code = 1095) POCT-GLUCOSE [id number] 21:28:29 Test Item Value Reference Range Interpretation Comments POC-GLUCOSE METER 187 mg/dL 70-110 H : TESTED A T [facility] 6720 (BEAKER) (test code = [facility] [place], 1538) 64791: Plastic Bubble Packer/Techni lucy ID = [id number] for Steph Kumar BLOOD [id number] 20:00:49 Test Item Value Reference Range Interpretation Comments CULTURE (BEAKER) (test No growth in 5 days code = 1095) The specimen volume collected for this blood culture was below the optimum (10 mL per bottle or 20 mL total). Use of lower volumes may adversely affect recovery and/or detection times of some organisms.POCT-GLUCOSE [id number] 17:25:26 Test Item Value Reference Range Interpretation Comments POC-GLUCOSE METER 191 mg/dL 70-110 H : TESTED A T [facility] 6720 (BEAKER) (test code = [facility], 1538) [id number]: Plastic Bubble Packer/Techni lucy ID = [id number] for An Bina loja POCT-GLUCOSE [id number] 11:29:27 Test Item Value Reference Range Interpretation Comments POC-GLUCOSE METER 209 mg/dL 70-110 H : TESTED A T [facility] 6720 (BEAKER) (test code = [facility], 1538) 40730: Plastic Bubble Packer/Techni lucy ID = [id number] for An Bina loja BASIC METABOLIC [id number] 06:30:06 Test Item Value Reference Range Interpretation Comments SODIUM (BEAKER) 133 meq/L 136-145 L (test code = 381) POTASSIUM (BEAKER) 3.7 meq/L 3.5-5.1 (test code = 379) CHLORIDE (BEAKER) 100 meq/L 98-107 (test code = 382) CO2 (BEAKER) (test 25 meq/L 22-29 code = 355) BLOOD UREA NITROGEN 7 mg/dL 7-21 (BEAKER) (test code = 354) CREATININE (BEAKER) 0.61 mg/dL 0.57-1.25 (test code = 358) GLUCOSE RANDOM 186 mg/dL 70-105 H (BEAKER) (test code = 652) CALCIUM (BEAKER) 8.6 mg/dL 8.4-10.2 (test code = 697) EGFR (BEAKER) (test 139 mL/min/1.73 ESTIM ATED GFR IS code = 1092) sq m NOT ACCURATE CREATININE CLEARANCE IN PREDICTING GLOMERULAR FILTRATION RATE . ESTIMATED GFR I S NOT APPLICABLE FOR DIALYSIS PATIEN TS. Plastic Bubble Packer ID - ESTRADA [facility] W/PLT COUNT & AUTO [id number] 05:32:16 Test Item Value Reference Range Interpretation Comments WHITE BLOOD CELL COUNT (BEAKER) 5.3 K/ L 3.5-10.5 (test code = 775) RED BLOOD CELL COUNT (BEAKER) 2.75 M/ L 4.63-6.08 L (test code = 761) HEMOGLOBIN (BEAKER) (test code = 7.7 GM/DL 13.7-17.5 L 410) HEMATOCRIT (BEAKER) (test code = 24.4 % 40.1-51.0 L 411) MEAN CORPUSCULAR VOLUME (BEAKER) 88.7 fL 79.0-92.2 (test code = 753) MEAN CORPUSCULAR HEMOGLOBIN 28.0 pg 25.7-32.2 (BEAKER) (test code = 751) MEAN CORPUSCULAR HEMOGLOBIN CONC 31.6 GM/DL 32.3-36.5 L (BEAKER) (test code = 752) RED CELL DISTRIBUTION WIDTH 14.0 % 11.6-14.4 (BEAKER) (test code = 412) PLATELET COUNT (BEAKER) (test 241 K/CU MM 150-450 code = 756) MEAN PLATELET VOLUME (BEAKER) 8.7 fL 9.4-12.4 L (test code = 754) NUCLEATED RED BLOOD CELLS 0 /100 WBC 0-0 (BEAKER) (test code = 413) NEUTROPHILS RELATIVE PERCENT 62 % (BEAKER) (test code = 429) LYMPHOCYTES RELATIVE PERCENT 26 % (BEAKER) (test code = 430) MONOCYTES RELATIVE PERCENT 9 % (BEAKER) (test code = 431) EOSINOPHILS RELATIVE PERCENT 2 % (BEAKER) (test code = 432) BASOPHILS RELATIVE PERCENT 0 % (BEAKER) (test code = 437) NEUTROPHILS ABSOLUTE COUNT 3.30 K/ L 1.78-5.38 (BEAKER) (test code = 670) LYMPHOCYTES ABSOLUTE COUNT 1.39 K/ L 1.32-3.57 (BEAKER) (test code = 414) MONOCYTES ABSOLUTE COUNT (BEAKER) 0.48 K/ L 0.30-0.82 (test code = 415) EOSINOPHILS ABSOLUTE COUNT 0.09 K/ L 0.04-0.54 (BEAKER) (test code = 416) BASOPHILS ABSOLUTE COUNT (BEAKER) 0.02 K/ L 0.01-0.08 (test code = 417) IMMATURE GRANULOCYTES-RELATIVE 1 % 0-1 PERCENT (BEAKER) (test code = 2801) POCT-GLUCOSE [id number] 21:11:15 Test Item Value Reference Range Interpretation Comments POC-GLUCOSE METER 179 mg/dL 70-110 H : TESTED A T [facility] 6720 (BEAKER) (test code = [facility], 1538) 76278: Plastic Bubble Packer/Techni lucy ID = [id number] for Josephine Roberto POCT-GLUCOSE [id number] 17:05:43 Test Item Value Reference Range Interpretation Comments POC-GLUCOSE METER 152 mg/dL 70-110 H : TESTED A T [facility] 6720 (BEAKER) (test code = [facility], 1538) 89456: Plastic Bubble Packer/Techni lucy ID = [id number] for ALFREDA DELEON POCT-GLUCOSE [id number] 15:29:50 Test Item Value Reference Range Interpretation Comments POC-GLUCOSE METER 177 mg/dL 70-110 H : TESTED A T [facility] 6720 (BEAKER) (test code = [facility], 1538) 10143: Plastic Bubble Packer/Techni lucy ID = [id number] for RO PAULINA MONROYECA POCT-GLUCOSE [id number] 08:25:18 Test Item Value Reference Range Interpretation Comments POC-GLUCOSE METER 174 mg/dL 70-110 H : TESTED A T [facility] 6720 (BEAKER) (test code = [facility], 1538) 10848: Plastic Bubble Packer/Techni lucy ID = [id number] for RO DGMARIZOL, PAULINAECA (CELLAVISION MANUAL DIFF)2021-09-22 07:24:33 Test Item Value Reference Range Interpretation Comments NEUTROPHILS - REL 75 % (CELLAVISION)(BEAKER) (test code = 2816) LYMPHOCYTES - REL 19 % (CELLAVISION)(BEAKER) (test code = 2817) MONOCYTES - REL 4 % (CELLAVISION)(BEAKER) (test code = 2818) EOSINOPHILS - REL 1 % (CELLAVISION)(BEAKER) (test code = 2819) METAMYELOCYTES - REL 1 % 0-0 H (CELLAVISION)(BEAKER) (test code = 2821) NEUTROPHILS - ABS 3.90 K/ul 1.78-5.38 (CELLAVISION)(BEAKER) (test code = 2830) LYMPHOCYTES - ABS 0.99 K/ul 1.32-3.57 L (CELLAVISION)(BEAKER) (test code = 2831) MONOCYTES - ABS 0.21 K/uL 0.30-0.82 L (CELLAVISION)(BEAKER) (test code = 2832) EOSINOPHILS - ABS 0.05 K/uL 0.04-0.54 (CELLAVISION)(BEAKER) (test code = 2834) METAMYELOCYTES - ABS 0.05 K/uL 0.00-0.00 H (CELLAVISION)(BEAKER) (test code = 2836) TOTAL COUNTED (BEAKER) (test code 100 = 1351) MANUAL NRBC PER 100 CELLS (BEAKER) 1 /100 WBC 0-0 H (test code = 1353) WBC MORPHOLOGY (BEAKER) (test code Normal = 487) GIANT PLATELETS (BEAKER) (test Present code = 313) ANISOCYTOSIS (BEAKER) (test code = 1+ few 961) MICROCYTES (BEAKER) (test code = 1+ few 965) ARTIFACT (CELLAVISION)(BEAKER) Present (test code = 3432) PLATELET CONCENTRATION Adequate (CELLAVISION)(BEAKER) (test code = 3438) Plastic Bubble Packer ID - claudia Hoyt comments: Slide comments:CBC W/PLT COUNT & AUTO [id number] 07:24:32 Test Item Value Reference Range Interpretation Comments WHITE BLOOD CELL COUNT (BEAKER) 5.2 K/ L 3.5-10.5 (test code = 775) RED BLOOD CELL COUNT (BEAKER) 2.81 M/ L 4.63-6.08 L (test code = 761) HEMOGLOBIN (BEAKER) (test code = 8.0 GM/DL 13.7-17.5 L 410) HEMATOCRIT (BEAKER) (test code = 25.1 % 40.1-51.0 L 411) MEAN CORPUSCULAR VOLUME (BEAKER) 89.3 fL 79.0-92.2 (test code = 753) MEAN CORPUSCULAR HEMOGLOBIN 28.5 pg 25.7-32.2 (BEAKER) (test code = 751) MEAN CORPUSCULAR HEMOGLOBIN CONC 31.9 GM/DL 32.3-36.5 L (BEAKER) (test code = 752) RED CELL DISTRIBUTION WIDTH 13.7 % 11.6-14.4 (BEAKER) (test code = 412) PLATELET COUNT (BEAKER) (test 236 K/CU MM 150-450 code = 756) MEAN PLATELET VOLUME (BEAKER) 8.6 fL 9.4-12.4 L (test code = 754) NUCLEATED RED BLOOD CELLS 0 /100 WBC 0-0 (BEAKER) (test code = 413) BASIC METABOLIC [id number] 05:28:03 Test Item Value Reference Range Interpretation Comments SODIUM (BEAKER) 132 meq/L 136-145 L (test code = 381) POTASSIUM (BEAKER) 3.8 meq/L 3.5-5.1 (test code = 379) CHLORIDE (BEAKER) 100 meq/L 98-107 (test code = 382) CO2 (BEAKER) (test 27 meq/L 22-29 code = 355) BLOOD UREA NITROGEN 7 mg/dL 7-21 (BEAKER) (test code = 354) CREATININE (BEAKER) 0.66 mg/dL 0.57-1.25 (test code = 358) GLUCOSE RANDOM 197 mg/dL 70-105 H (BEAKER) (test code = 652) CALCIUM (BEAKER) 8.7 mg/dL 8.4-10.2 (test code = 697) EGFR (BEAKER) (test 127 mL/min/1.73 ESTIM ATED GFR IS code = 1092) sq m NOT ACCURATE CREATININE CLEARANCE IN PREDICTING GLOMERULAR FILTRATION RATE . ESTIMATED GFR I S NOT APPLICABLE FOR DIALYSIS PATIEN TS. Plastic Bubble Packer ID - ESTRADA MPOCT-GLUCOSE [id number] 21:57:41 Test Item Value Reference Range Interpretation Comments POC-GLUCOSE METER 192 mg/dL 70-110 H : TESTED A T [facility] 6720 (BEAKER) (test code = [facility] [place], 1538) 91515: Plastic Bubble Packer/Techni lucy ID = [id number] for Danae Robertoarabella POCT-GLUCOSE [id number] 17:57:30 Test Item Value Reference Range Interpretation Comments POC-GLUCOSE METER 183 mg/dL 70-110 H : TESTED A T [facility] 6720 (BEAKER) (test code = [facility] [place], 1538) 01377: Plastic Bubble Packer/Techni lucy ID = [id number] for JOSE BASSETT HEPATIC FUNCTION [id number] 16:01:45 Test Item Value Reference Range Interpretation Comments TOTAL PROTEIN (BEAKER) (test code = 7.1 gm/dL 6.0-8.3 770) ALBUMIN (BEAKER) (test code = 1145) 2.6 g/dL 3.5-5.0 L BILIRUBIN TOTAL (BEAKER) (test code 0.7 mg/dL 0.2-1.2 = 377) BILIRUBIN DIRECT (BEAKER) (test 0.4 mg/dL 0.1-0.5 code = 706) ALKALINE PHOSPHATASE (BEAKER) (test 114 U/L 40-150 code = 346) AST (SGOT) (BEAKER) (test code = 18 U/L 5-34 353) ALT (SGPT) (BEAKER) (test code = 11 U/L 6-55 347) Plastic Bubble Packer ID - ESTRADA MOperator ID - ESTRADA [id number] 15:56:05 Test Item Value Reference Range Interpretation Comments PHOSPHORUS (BEAKER) (test code = 3.5 mg/dL 2.3-4.7 604) Plastic Bubble Packer ID - ESTRADA MC-REACTIVE [id number] 15:56:05 Test Item Value Reference Range Interpretation Comments C-REACTIVE PROTEIN (BEAKER) (test 15.79 mg/dL 0.00-0.50 H code = 676) Plastic Bubble Packer ID - ESTRADA MBASIC METABOLIC [id number] 15:56:04 Test Item Value Reference Range Interpretation Comments SODIUM (BEAKER) 131 meq/L 136-145 L (test code = 381) POTASSIUM (BEAKER) 4.1 meq/L 3.5-5.1 (test code = 379) CHLORIDE (BEAKER) 98 meq/L 98-107 (test code = 382) CO2 (BEAKER) (test 26 meq/L 22-29 code = 355) BLOOD UREA NITROGEN 7 mg/dL 7-21 (BEAKER) (test code = 354) CREATININE (BEAKER) 0.62 mg/dL 0.57-1.25 (test code = 358) GLUCOSE RANDOM 202 mg/dL 70-105 H (BEAKER) (test code = 652) CALCIUM (BEAKER) 8.8 mg/dL 8.4-10.2 (test code = 697) EGFR (BEAKER) (test 136 mL/min/1.73 ESTIM ATED GFR IS code = 1092) sq m NOT ACCURATE CREATININE CLEARANCE IN PREDICTING GLOMERULAR FILTRATION RATE . ESTIMATED GFR I S NOT APPLICABLE FOR DIALYSIS PATIEN TS. Plastic Bubble Packer ID - ESTRADA [id number] 15:56:04 Test Item Value Reference Range Interpretation Comments MAGNESIUM (BEAKER) (test code = 1.7 mg/dL 1.6-2.6 627) Plastic Bubble Packer ID - ESTRADA MCBC W/PLT COUNT & AUTO [id number] 14:57:10 Test Item Value Reference Range Interpretation Comments WHITE BLOOD CELL COUNT (BEAKER) 5.9 K/ L 3.5-10.5 (test code = 775) RED BLOOD CELL COUNT (BEAKER) 3.01 M/ L 4.63-6.08 L (test code = 761) HEMOGLOBIN (BEAKER) (test code = 8.5 GM/DL 13.7-17.5 L 410) HEMATOCRIT (BEAKER) (test code = 26.5 % 40.1-51.0 L 411) MEAN CORPUSCULAR VOLUME (BEAKER) 88.0 fL 79.0-92.2 (test code = 753) MEAN CORPUSCULAR HEMOGLOBIN 28.2 pg 25.7-32.2 (BEAKER) (test code = 751) MEAN CORPUSCULAR HEMOGLOBIN CONC 32.1 GM/DL 32.3-36.5 L (BEAKER) (test code = 752) RED CELL DISTRIBUTION WIDTH 13.5 % 11.6-14.4 (BEAKER) (test code = 412) PLATELET COUNT (BEAKER) (test 237 K/CU MM 150-450 code = 756) MEAN PLATELET VOLUME (BEAKER) 8.4 fL 9.4-12.4 L (test code = 754) NUCLEATED RED BLOOD CELLS 0 /100 WBC 0-0 (BEAKER) (test code = 413) NEUTROPHILS RELATIVE PERCENT 72 % (BEAKER) (test code = 429) LYMPHOCYTES RELATIVE PERCENT 16 % (BEAKER) (test code = 430) MONOCYTES RELATIVE PERCENT 10 % (BEAKER) (test code = 431) EOSINOPHILS RELATIVE PERCENT 1 % (BEAKER) (test code = 432) BASOPHILS RELATIVE PERCENT 0 % (BEAKER) (test code = 437) NEUTROPHILS ABSOLUTE COUNT 4.24 K/ L 1.78-5.38 (BEAKER) (test code = 670) LYMPHOCYTES ABSOLUTE COUNT 0.96 K/ L 1.32-3.57 L (BEAKER) (test code = 414) MONOCYTES ABSOLUTE COUNT (BEAKER) 0.56 K/ L 0.30-0.82 (test code = 415) EOSINOPHILS ABSOLUTE COUNT 0.07 K/ L 0.04-0.54 (BEAKER) (test code = 416) BASOPHILS ABSOLUTE COUNT (BEAKER) 0.02 K/ L 0.01-0.08 (test code = 417) IMMATURE GRANULOCYTES-RELATIVE 1 % 0-1 PERCENT (BEAKER) (test code = 2801) POCT-GLUCOSE [id number] 12:33:22 Test Item Value Reference Range Interpretation Comments POC-GLUCOSE METER 162 mg/dL 70-110 H : TESTED A T [facility] 6720 (BEAKER) (test code = [facility], 1538) 02550: Plastic Bubble Packer/Techni lucy ID = [id number] for RO DGERS, JAMECA POCT-GLUCOSE [id number] 08:13:06 Test Item Value Reference Range Interpretation Comments POC-GLUCOSE METER 180 mg/dL 70-110 H : TESTED A T [facility] 6720 (BEAKER) (test code = [facility], 1538) 71921: Plastic Bubble Packer/Techni lucy ID = [id number] for RO DGERS, JAMECA POCT-GLUCOSE [id number] 20:39:42 Test Item Value Reference Range Interpretation Comments POC-GLUCOSE METER 175 mg/dL 70-110 H : TESTED A T [facility] 6720 (BEAKER) (test code = [facility], 1538) 96016: Plastic Bubble Packer/Techni lucy ID = [id number] for Steph Kumar POCT-GLUCOSE [id number] 17:10:08 Test Item Value Reference Range Interpretation Comments POC-GLUCOSE METER 188 mg/dL 70-110 H : TESTED A T [facility] 6720 (BEAKER) (test code = [facility], 1538) 29955: Plastic Bubble Packer/Techni lucy ID = [id number] for OJ LEONOR, ARIAN POCT-GLUCOSE [id number] 11:49:26 Test Item Value Reference Range Interpretation Comments POC-GLUCOSE METER 180 mg/dL 70-110 H : TESTED A T [facility] 6720 (JESSICA) (test code = [facility], 1538) 74060: Plastic Bubble Packer/Techni lucy ID = [id number] for OJ LEONOR, RAIAN POCT-GLUCOSE [id number] 17:09:11 Test Item Value Reference Range Interpretation Comments POC-GLUCOSE METER 174 mg/dL 70-110 H : TESTED A T [facility] 6720 (JESSICA) (test code = [facility], 1538) 63625: Plastic Bubble Packer/Techni lucy ID = [id number] for An derson, Bina POCT-GLUCOSE [id number] 11:42:24 Test Item Value Reference Range Interpretation Comments POC-GLUCOSE METER 175 mg/dL 70-110 H : TESTED A T [facility] 6720 (JESSICA) (test code = [facility], 1538) 02989: Plastic Bubble Packer/Techni lucy ID = [id number] for An derson, Bina MR, SPINE, LUMBAR, [id number] 10:43:00Unlisted Reason for Exam - Click Yes and Enter Reason Below->No [facility] 1970 Sex: MFINAL REPORT EXAM/TECHNIQUE: MRI of the lumbar spine with and without IV contrast IV contrast. Multiplanar multisequence technique was performed. INDICATION: Abscess. COMPARISON: None. FINDINGS: There are five lumbar-type vertebral bodies. Normal appearance of the conus medullaris. Cauda equina is grossly normal in appearance. No acute fracture. No infiltrative marrow process. Normal alignment of the lumbar spine. There are several vertebral body hemangiomas including a STIR hyperintense lesion at L1, likely representing an atypical hemangioma. There are STIR hyperintensity and enhancement of the L5 vertebral body, L5-S1 disc, and superior aspect of the S1 vertebral body. There is enhancement involving the prevertebral soft tissue without significant psoas enhancement. Left L5-S1 joint effusion without adjacent enhancement or loss of fat. Otherwise, substantial synovial effusion, enhancement, or edema. There is epidural enhancement at L5 extending to L1 containing small pockets of T2 hyperintense nonenhancing pockets, suggestive of abscesses, the largest measur ing 15 x 2 mm. There appears to be a central organizing abscess measuring 44 x 9 mm. Normal appearance of the kidneys. Paraspinal musculature is unremarkable. T12-L1: No spinal canal narrowing. No neural foraminal narrowing. L1-L2: No spinal canal narrowing. No neural foraminal narrowing.L2-L3: No spinal canal narrowing. No neural foraminal narrowing.L3-L4: Symmetric disc bulge, facet arthropathy, ligamentum flavum prominence contributes to mild spinal canal narrowing. No neural foraminal narrowing.L4-L5: Symmetric disc bulge, facet arthropathy, and ligamentum flavum prominence contributes to mildspinal canal narrowing and mild bilateral neural foraminal narrowing.L5-S1: Epidural phlegmon, disc extrusion, contribute to severe spinal canal narrowing. Symmetric disc bulge and facet arthropathy contribute to moderate bilateral neural foraminal narrowing. 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 This phlegmon contributes to severe spinal canal narrowing at this level. Signed: Siddhartha Pineda [facility] Verified Date/Time: 09/19/2021 10:43:41 POCT-GLUCOSE [id number] 07:25:08 Test Item Value Reference Range Interpretation Comments POC-GLUCOSE METER 181 mg/dL 70-110 H : TESTED A T [facility] 6720 (BEAKER) (test code = [facility], 1538) 78505: Plastic Bubble Packer/Techni lucy ID = [id number] for An Bina loja C-REACTIVE [id number] 05:36:13 Test Item Value Reference Range Interpretation Comments C-REACTIVE PROTEIN (BEAKER) (test 15.70 mg/dL 0.00-0.50 H code = 676) Plastic Bubble Packer ID - ESTRADA MCOMPREHENSIVE METABOLIC [id number] 05:36:12 Test Item Value Reference Range Interpretation Comments TOTAL PROTEIN 6.2 gm/dL 6.0-8.3 (BEAKER) (test code = 770) ALBUMIN (BEAKER) 2.3 g/dL 3.5-5.0 L (test code = 1145) ALKALINE PHOSPHATASE 110 U/L 40-150 (BEAKER) (test code = 346) BILIRUBIN TOTAL 0.5 mg/dL 0.2-1.2 (BEAKER) (test code = 377) SODIUM (BEAKER) (test 133 meq/L 136-145 L code = 381) POTASSIUM (BEAKER) 3.9 meq/L 3.5-5.1 (test code = 379) CHLORIDE (BEAKER) 99 meq/L 98-107 (test code = 382) CO2 (BEAKER) (test 29 meq/L 22-29 code = 355) BLOOD UREA NITROGEN 3 mg/dL 7-21 L (BEAKER) (test code = 354) CREATININE (BEAKER) 0.57 mg/dL 0.57-1.25 (test code = 358) GLUCOSE RANDOM 184 mg/dL 70-105 H (BEAKER) (test code = 652) CALCIUM (BEAKER) 8.4 mg/dL 8.4-10.2 (test code = 697) AST (SGOT) (BEAKER) 16 U/L 5-34 (test code = 353) ALT (SGPT) (BEAKER) 11 U/L 6-55 (test code = 347) EGFR (BEAKER) (test 150 ESTIMATE D GFR IS code = 1092) mL/min/1.73 sq NOT ACCURA TE m CREATININE CLEARANCE IN PREDICTING GLOMERULAR FILTRATION RATE . ESTIMATED GFR I S NOT APPLICABLE FOR DIALYSIS PATIEN TS. Plastic Bubble Packer ID - ESTRADA MSARS-COV2/RT-PCR ([facility])2021-09-19 01:23:23 Test Item Value Reference Range Interpretation Comments SARS-COV2/RT-PCR Negative Negative The SARS-Co V-2 target (test code = nucleic acids a re not [id number]) detected in thi s specimen. Negative result s do not preclude SARS-C oV-2 infection and s hould not be used as the darren e basis for patient managem ent decisions. Nega tive results must be combine d with clinical observ ations, patient history , and epidemiological information. A false negativ e result may occur if a spec imen is improperly juan ected, transported or handled. This SARS CoV-2 test is a rapid, real-liza e RT-PCR test intended for th e qualitative detection of nu cleic acid from SARS-CoV-2 in a nasopharyngeal swab specimen collected from individuals suspected of CO VID-19 by their healthcar e provider. This test has been authorized by FDA under an EUA for use by authorized laboratories. This test is only authorized for the duration of the declaration that circumstances exist justifying the authorization of emergency use of in vitro diagnostic tests for detection and/or diagnosis of COVID-19 under Section 564(b)(1) of the Federal Food, Drug and Cosmetic Act, 21 U.S.C. 360bbb- 3(b)(1), unless the authorization is terminated or revoked sooner. Fact Sheet for Healthcare Providers: https://www.[employer]/Documents/Xpert%20Xpress%20SARS%20CoV-2/Fact%20Sheets/3023802%20SARS-COV -2%20HEALTHCARE%20PROVIDERS%20FACT%20SHEET.pdf Fact Sheet for Healthcare Patients: https://www.[employer]/Documents/Xpert %20Xpress%20SARS%20CoV-2/Fact%20Sheets/3023801%64ZELM-RNK-0%20PATIENT%20FACT%20 SHEET.pdfPOCT-GLUCOSE [id number] 22:10:31 Test Item Value Reference Range Interpretation Comments POC-GLUCOSE METER 176 mg/dL 70-110 H : TESTED A T [facility] 6720 (JESSICA) (test code = [facility] [place], 1538) 15247: Plastic Bubble Packer/Techni lucy ID = [id number] for Steph Kumar [id number] 19:54:47 Test Item Value Reference Range Interpretation Comments PHOSPHORUS (BEAKER) (test code = 2.8 mg/dL 2.3-4.7 604) Plastic Bubble Packer ID - DBBASIC METABOLIC [id number] 19:54:46 Test Item Value Reference Range Interpretation Comments SODIUM (BEAKER) 132 meq/L 136-145 L (test code = 381) POTASSIUM (BEAKER) 3.4 meq/L 3.5-5.1 L (test code = 379) CHLORIDE (BEAKER) 98 meq/L 98-107 (test code = 382) CO2 (BEAKER) (test 26 meq/L 22-29 code = 355) BLOOD UREA NITROGEN 4 mg/dL 7-21 L (BEAKER) (test code = 354) CREATININE (BEAKER) 0.55 mg/dL 0.57-1.25 L (test code = 358) GLUCOSE RANDOM 159 mg/dL 70-105 H (BEAKER) (test code = 652) CALCIUM (BEAKER) 8.2 mg/dL 8.4-10.2 L (test code = 697) EGFR (BEAKER) (test 156 mL/min/1.73 ESTIM ATED GFR IS code = 1092) sq m NOT ACCURATE CREATININE CLEARANCE IN PREDICTING GLOMERULAR FILTRATION RATE . ESTIMATED GFR I S NOT APPLICABLE FOR DIALYSIS PATIEN TS. Plastic Bubble Packer ID - [id number] 19:54:46 Test Item Value Reference Range Interpretation Comments MAGNESIUM (BEAKER) (test code = 1.7 mg/dL 1.6-2.6 627) Plastic Bubble Packer ID - [id number] 19:51:43 Test Item Value Reference Range Interpretation Comments PARTIAL THROMBOPLASTIN TIME 38.0 seconds 22.5-36.0 H (BEAKER) (test code = 760) [id number] 19:51:43 Test Item Value Reference Range Interpretation Comments PROTIME (BEAKER) (test 17.3 seconds 11.9-14.2 H code = 759) INR (BEAKER) (test 1.44 See_Comment [Automat ed code = 370) message] The sy stem which generated this result transmitted reference range : <=5.90. The reference range was not used to interpret this result as normal/abnormal . PARTIAL THROMBOPLASTIN 38.0 seconds 22.5-36.0 H TIME (BEAKER) (test code = 760) RECOMMENDED COUMADIN/WARFARIN INR THERAPY RANGESSTANDARD DOSE: 2.0 - 3.0 Includes: PROPHYLAXIS forvenous thrombosis, systemic embolization; TREATMENT for venous thrombosis and/or pulmonary embolus.HIGH RISK: Target INR is 2.5-3.5 for patients with mechanical heart valves.PROTHROMBIN TIME/[id number] 19:51:01 Test Item Value Reference Range Interpretation Comments PROTIME (BEAKER) 17.3 seconds 11.9-14.2 H (test code = 759) INR (BEAKER) (test 1.44 See_Comment [Automat ed message] code = 370) The system [employer] generated this result transmitted ref erence range: <=5.90. The reference range was not used to int erpret this result as normal/abnormal . RECOMMENDED COUMADIN/WARFARIN INR THERAPY RANGESSTANDARD DOSE: 2.0 - 3.0 Includes: PROPHYLAXIS forvenous thrombosis, systemic embolization; TREATMENT for venous thrombosis and/or pulmonary embolus.HIGH RISK: Target INR is 2.5-3.5 for patients with mechanical heart valves.CBC W/PLT COUNT & AUTO DIFFERENTIAL 2021-09-18 19:37:43 Test Item Value Reference Range Interpretation Comments WHITE BLOOD CELL COUNT (BEAKER) 5.9 K/ L 3.5-10.5 (test code = 775) RED BLOOD CELL COUNT (BEAKER) 2.78 M/ L 4.63-6.08 L (test code = 761) HEMOGLOBIN (BEAKER) (test code = 8.0 GM/DL 13.7-17.5 L 410) HEMATOCRIT (BEAKER) (test code = 23.8 % 40.1-51.0 L 411) MEAN CORPUSCULAR VOLUME (BEAKER) 85.6 fL 79.0-92.2 (test code = 753) MEAN CORPUSCULAR HEMOGLOBIN 28.8 pg 25.7-32.2 (BEAKER) (test code = 751) MEAN CORPUSCULAR HEMOGLOBIN CONC 33.6 GM/DL 32.3-36.5 (BEAKER) (test code = 752) RED CELL DISTRIBUTION WIDTH 13.2 % 11.6-14.4 (BEAKER) (test code = 412) PLATELET COUNT (BEAKER) (test 246 K/CU MM 150-450 code = 756) MEAN PLATELET VOLUME (BEAKER) 9.0 fL 9.4-12.4 L (test code = 754) NUCLEATED RED BLOOD CELLS 0 /100 WBC 0-0 (BEAKER) (test code = 413) NEUTROPHILS RELATIVE PERCENT 69 % (BEAKER) (test code = 429) LYMPHOCYTES RELATIVE PERCENT 19 % (BEAKER) (test code = 430) MONOCYTES RELATIVE PERCENT 10 % (BEAKER) (test code = 431) EOSINOPHILS RELATIVE PERCENT 1 % (BEAKER) (test code = 432) BASOPHILS RELATIVE PERCENT 0 % (BEAKER) (test code = 437) NEUTROPHILS ABSOLUTE COUNT 4.04 K/ L 1.78-5.38 (BEAKER) (test code = 670) LYMPHOCYTES ABSOLUTE COUNT 1.08 K/ L 1.32-3.57 L (BEAKER) (test code = 414) MONOCYTES ABSOLUTE COUNT (BEAKER) 0.57 K/ L 0.30-0.82 (test code = 415) EOSINOPHILS ABSOLUTE COUNT 0.06 K/ L 0.04-0.54 (BEAKER) (test code = 416) BASOPHILS ABSOLUTE COUNT (BEAKER) 0.01 K/ L 0.01-0.08 (test code = 417) IMMATURE GRANULOCYTES-RELATIVE 2 % 0-1 H PERCENT (BEAKER) (test code = 2801) POCT-GLUCOSE [id number] 17:15:12 Test Item Value Reference Range Interpretation Comments POC-GLUCOSE METER 147 mg/dL 70-110 H : TESTED A T [facility] 6720 (BEAKER) (test code = [facility] [place], 1538) 10647: Plastic Bubble Packer/Techni lucy ID = [id number] for An Bina loja XR FOOT 3+ VW [id number] 20:59:26 1. ?Neuropathic right mid foot. 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 There is a neuropathic joint throughout mid foot. ?There is no foreignbody. No definite soft tissue gas. There is pronounced soft tissueswelling. There is a remote fracture proximal fifth phalanx. [facility], Radiant Results Inft User - 09/29/2020 3:00 PM CSTHISTORY: Right footcharcot and edema Meet Valdivia is a 50 year old malewho presents with right foot charcot, edema, plantar open woundCOMPARISON: NoneFINDINGS:3 views of the right foot show prior second digit amputation.There is a neuropathic joint throughout mid foot. There is no foreignbody. No definite soft tissuegas. There is pronounced soft tissueswelling.There is a remote fracture proximal fifth phalanx.IMPRESSION1. Neuropathic right mid foot.[id number]
--- NOTE | 2021-10-01 08:43 | RAD REPORT ---
EXAM DESCRIPTION: RAD - Chest Single View - 10/01/2021 8:37 am CLINICAL HISTORY: PICC placement verification COMPARISON: Chest Single View dated 09/15/2021; Chest Single View dated 09/13/2021; Chest Single Vie w dated 05/07/2020; Chest Single View dated 08/29/2019 FINDINGS: Portable chest was obtained following placement of a right upper extremity PICC line. The catheter tip projects over the SVC..
--- NOTE | 2021-10-01 10:10 | EDPHYS ---
Physician Documentation [facility] Name: Roverto Figueroa Age: 51 yrs Sex: Male : 1970 Arrival Date: 10/01/2021 Time: 07:26 Bed 2 Private MD: ED Physician Mirian Plascencia HPI: 10/01 09:36 This 51 yrs old Male presents to ER via Wheelchair with complaints of picc line ma2 bleeding. 09:36 Onset: The symptoms/episode began/occurred gradually, 1 day(s) ago. Severity of ma2 symptoms: At their worst the symptoms were very mild in the emergency department the symptoms have resolved. The patient has not experienced similar symptoms in the past. Patient was discharged on the , 2 days ago with a PICC line on the right upper arm for antibiotics 3 times daily, patient used to take Eliquis, that was stopped 5 days ago, he is here because there was bleeding from the PICC line, bleeding was minimal, lasted for few minutes, and resolved. At this time patient has no symptom or complaint. Historical: - Allergies: 07:44 No Known Allergies; vg1 - Home Meds: 07:44 Hydralazine Oral [Active]; Metformin Oral [Active]; vg1 - PMHx: 07:44 Diabetes - NIDDM; Hypertension; vg1 - Immunization history:: Client reports receiving the 2nd dose of the Covid vaccine, Flu vaccine is up to date. - Social history:: Smoking status: Patient denies any tobacco usage or history of. Patient/guardian denies using alcohol, street drugs, The patient lives with family. - Family history:: not pertinent. ROS: 09:36 Constitutional: Negative for fever, chills, and weight loss. ma2 09:36 All other systems are negative. Exam: 09:36 Constitutional: This is a well developed, well nourished patient who is awake, alert, ma2 and in no acute distress. Eyes: Pupils equal round and reactive to light, extra-ocular motions intact. Lids and lashes normal. Conjunctiva and sclera are non-icteric and not injected. Cornea within normal limits. Periorbital areas with no swelling, redness, or edema. ENT: Nares patent. No nasal discharge, no septal abnormalities noted. Tympanic membranes are normal and external auditory canals are clear. Oropharynx with no redness, swelling, or masses, exudates, or evidence of obstruction, uvula midline. Mucous membranes moist. Neck: Trachea midline, no thyromegaly or masses palpated, and no cervical lymphadenopathy. Supple, full range of motion without nuchal rigidity, or vertebral point tenderness. No Meningismus. Chest/axilla: Normal chest wall appearance and motion. Nontender with no deformity. No lesions are appreciated. Cardiovascular: Regular rate and rhythm with a normal S1 and S2. No gallops, murmurs, or rubs. Normal PMI, no JVD. No pulse deficits. Respiratory: Lungs have equal breath sounds bilaterally, clear to auscultation and percussion. No rales, rhonchi or wheezes noted. No increased work of breathing, no retractions or nasal flaring. Abdomen/GI: Soft, non-tender, with normal bowel sounds. No distension or tympany. No guarding or rebound. No evidence of tenderness throughout. Skin: Warm, dry with normal turgor. Normal color with no rashes, no lesions, and no evidence of cellulitis. MS/ Extremity: Right upper extremity PICC line, with no active bleeding, will change dressing PICC line with good flow, otherwise pulses equal, no cyanosis. Neurovascular intact. Full, normal range of motion. Neuro: Awake and alert, GCS 15, oriented to person, place, time, and situation. Cranial nerves II-XII grossly intact. Motor strength 5/5 in all extremities. Sensory grossly intact. Cerebellar exam normal. Normal gait. Vital Signs: 07:41 BP 137 / 81; Pulse 128; Resp 18; Temp 97.7; Pulse Ox 100% ; Weight 72.57 kg; Height 6 vg1 ft. 0 in. (182.88 cm); 07:41 Body Mass Index 21.70 (72.57 kg, 182.88 cm) vg1 MDM: 08:01 Patient medically screened. ma2 09:36 Differential Diagnosis PICC line bleeding resolved, patient is not on Eliquis anymore, ma2 he has no symptom at this time, dressing changed, no active bleeding. No symptom at this time. Although tachycardia was noticed initially, patient pulse at this time is 80 bpm, will discharge home follow-up with PCP in 1 day.. Data reviewed: vital signs, nurses notes. Counseling: I had a detailed discussion with the patient and/or guardian regarding: the historical points, exam findings, and any diagnostic results supporting the discharge/admit diagnosis, the presence of at least one elevated blood pressure reading (>120/80) during this emergency department visit, the need for outpatient follow up. Response to treatment: the patient's symptoms have resolved after treatment. 10/01 07:57 Order name: XRAY Chest (1 view); Complete Time: 09:14 jl7 Administered Medications: No medications were administered Disposition Summary: 10/01/21 10:09 Discharge Ordered Location: Home ma2 Condition: Stable ma2 Diagnosis - Acute pain, not elsewhere classified - PICC line bleeding - Resolved ma2 Followup: ma2 - With: Private Physician - When: Tomorrow - Reason: If symptoms return, Continuance of care Discharge Instructions: - Discharge Summary Sheet ma2 - PICC Home Care Guide ma2 Forms: - Medication Reconciliation Form ma2 - Thank You Letter ma2 - Antibiotic Education ma2 - Prescription Opioid Use ma2 - Family Work Release ww Signatures: Dispatcher [employer] EDMirian Neumann MD MD ma2 Phuong Villegas, RN RN vg1
--- NOTE | 2021-10-01 10:10 | ER ---
Nurse's Notes [facility] [place] Name: Roverto Figueroa Age: 51 yrs Sex: Male : 1970 Arrival Date: 10/01/2021 Time: 07:26 Bed 2 Private MD: Diagnosis: Acute pain, not elsewhere classified-PICC line bleeding - Resolved Presentation: 10/01 07:41 Chief complaint: Patient states: picc line began bleeding today around 0530; states it vg1 was placed about 2 weeks ago and dressing was changed on 09/29/21; states is currently taking antibiotics for an abscess on lower back. Picc line on Right upper arm. Coronavirus screen: Vaccine status: Patient reports receiving the 2nd dose of the covid vaccine. Client denies travel out of the [place] in the last 14 days. Ebola Screen: Patient negative for fever greater than or equal to 101.5 degrees Fahrenheit, and additional compatible Ebola Virus Disease symptoms. Initial Sepsis Screen: Does the patient meet any 2 criteria? HR > 90 bpm. Does the patient have a suspected source of infection? Yes:. Risk Assessment: Do you want to hurt yourself or someone else? Patient reports no desire to harm self or others. Onset of symptoms was October 01, 2021. 07:41 Method Of Arrival: Wheelchair vg1 07:41 Acuity: KAMRYN 3 vg1 Triage Assessment: 07:44 General: Appears in no apparent distress. uncomfortable, Behavior is calm, cooperative. vg1 Pain: Complains of pain in lower back. Neuro: Level of Consciousness is awake, alert, obeys commands, Oriented to person, place, time, situation. Historical: - Allergies: 07:44 No Known Allergies; vg1 - Home Meds: 07:44 Hydralazine Oral [Active]; Metformin Oral [Active]; vg1 - PMHx: 07:44 Diabetes - NIDDM; Hypertension; vg1 - Immunization history:: Client reports receiving the 2nd dose of the Covid vaccine, Flu vaccine is up to date. - Social history:: Smoking status: Patient denies any tobacco usage or history of. Patient/guardian denies using alcohol, street drugs, The patient lives with family. - Family history:: not pertinent. Screenin:08 Abuse screen: Denies threats or abuse. Denies injuries from another. Nutritional ww screening: No deficits noted. Tuberculosis screening: No symptoms or risk factors identified. Fall Risk No secondary diagnosis (0 pts). IV access (20 points). Ambulatory Aid- Crutches/Cane/Walker (15 pts). Gait- Weak (10 pts.). Mental Status- Oriented to own ability (0 pts). Total Blount Fall Scale indicates High Risk Score (45 or more points). Fall prevention measures have been instituted. Side Rails Up X 2 Placed Close to Nursing Station 1:1 Attendant Assigned Frequent Obs/Assessments Occuring Family Present and informed to notify staff if the need to leave the bedside. Assessment: 08:30 General: Appears comfortable, obese, Behavior is calm, cooperative, appropriate for ww age. General: complains of chronic back pain and currently being treated for a spinal abscess. Pain: Complains of pain in back and right foot. Neuro: Level of Consciousness is awake, alert, obeys commands, Oriented to person, place, time, situation. Cardiovascular: Denies chest pain, shortness of breath. Respiratory: Airway is patent Respiratory effort is even, unlabored, Respiratory pattern is regular, symmetrical. GI: No deficits noted. No signs and/or symptoms were reported involving the gastrointestinal system. : No deficits noted. No signs and/or symptoms were reported regarding the genitourinary system. EENT: No deficits noted. No signs and/or symptoms were reported regarding the EENT system. Derm: Skin has lesions on right foot ulcer dressed and wound care managed by home health care. Vital Signs: 07:41 BP 137 / 81; Pulse 128; Resp 18; Temp 97.7; Pulse Ox 100% ; Weight 72.57 kg; Height 6 vg1 ft. 0 in. (182.88 cm); 07:41 Body Mass Index 21.70 (72.57 kg, 182.88 cm) vg1 ED Course: 07:26 Patient arrived in ED. am2 07:35 Masoud Conn RN is Primary Nurse. jl7 07:44 Triage completed. vg1 07:44 Arm band placed on. vg1 07:59 Mirian Plascencia MD is Attending Physician. ma2 08:37 XRAY Chest (1 view) In Process Unspecified. EDMS 10:08 Patient has correct armband on for positive identification. Bed in low position. Call ww light in reach. Adult w/ patient. 10:08 No provider procedures requiring assistance completed. Accessed PICC line. intact, ww bleeding controlled, No redness/swelling at site. 10:08 Dressings: Changed right upper PICC line dressing with sterile technique using central ww line dressing kit. Patient tolerated well. Red PICC access flushed without patency and give good blood return. Purple PICC access flushes with some resistant. According to patient and spouse that has been an ongoing issue. Informed to contact home health nurse and provider managing the PICC. Verbal understanding. Administered Medications: No medications were administered Outcome: 08:30 Discharged to home with family. ww 08:30 Condition: stable 08:30 Discharge instructions given to patient, significant other, Instructed on discharge instructions, follow up and referral plans. medication usage, safety practices, PICC techniques Demonstrated understanding of instructions, follow-up care, medications, wound care. 10:09 Discharge ordered by . dori 10:38 Patient left the ED. ww Signatures: Dispatcher [employer] Masoud Woodall, RN RN jl7 Hermelinda Hylton Mohammad, MD MD ma2 Phuong Villegas RN RN vg1 Yenny Hassan RN RN ww
[2021-10-01 10:42] VITALS: BP 137/81; TEMP 97.7; O2SAT 100
== END 2021-10-01 10:38 | disposition home or self-care (01) ==
LOC: ER 07:25
DX: T82.838A Hemorrhage due to vascular prosthetic devices, implants and grafts, initial encounter (principal); E11.9 Type 2 diabetes mellitus without complications; I10 Essential (primary) hypertension
CPT/HCPCS: 71045; 99284

== ENCOUNTER 2022-01-04 11:40 | Observation (INO) | payer BC ==
--- OUTSIDE RECORDS SUMMARY | 2022-01-04 11:46 | XMS REPORT | Continuity of Care Document ---
:1970 Author Organization [facility] t Address [address] [place] [address] Care Team Providers Name Role Phone Alice Mckeon MD Primary Care Physician Karen GONZÁLES Attending Clinician LAB90 Attending Clinician Unavailable KAREN Attending Clinician Unavailable LAMBERT Attending Clinician Unavailable Shelbi ERNANDEZ Attending Clinician Unavailable Magdalene HUBBARD Attending Clinician Unavailable LAB39 Attending Clinician Unavailable SHREE Attending Clinician Unavailable [id number] Attending Clinician Unavailable Shree CHO Attending Clinician JT TIERNEY Attending Clinician Unavailable Chris WHITEHEAD Attending Clinician Unavailable Shahbaz LEWIS Attending Clinician Unavailable [id number] Attending Clinician Unavailable JENY Attending Clinician Unavailable Rachid Saaevdra DO Attending Clinician Kathie KELLER Attending Clinician Unavailable Jeison GONZÁLES Attending Clinician JEISON Attending Clinician Unavailable Kathie Keller DPM Attending Clinician [facility] Attending Clinician Unavailable Grace GONZALEZ Attending Clinician Dennis GONZÁLES Attending Clinician Doctor Unassigned, Name Attending Clinician Unavailable SANYAL Admitting Clinician Unavailable Payers Payer Name Policy Type Policy Number Effective Date Expiration Date S ource BCBS PPO POS EPO [id number] 2017 00:00:00 CHOICE Problems Condition Condition Condition Status Onset Resolution Last Treating Co mments Source Name Details Category Date Date Treatment Clinician Date Chronic Chronic Disease Active Sandra infection infection 2-01 Seyb old 00:00: 00 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 5-27 Seyb old diabetes diabetes 00:00: mellitus mellitus 00 with with hyperglyce hyperglyce will will DM type 2 DM type 2 Disease Active Louis sey with with 5-27 Seybold diabetic diabetic 00:00: dyslipidem dyslipidem 00 ia ia 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 5-27 Se ybold y y 00:00: associated associated 00 with type with type 2 diabetes 2 diabetes mellitus mellitus Essential Essential Disease Active Louis sey hypertensi hypertensi 4-08 Se ybold on on 00:00: 00 Vascular Vascular Disease Active Kelse y disease disease 4-08 Seybold 00:00: 00 Type 2 Type 2 Disease Active Sandra diabetes diabetes 4-08 Seybol d mellitus, mellitus, 00:00: without without 00 long-term long-term current current use of use of insulin insulin Diabetic Diabetic Disease Active Kelse y ulcer of ulcer of 4-08 Seybol d right right 00:00: midfoot midfoot 00 associated associated with type with type 2 diabetes 2 diabetes mellitus, mellitus, limited to limited to breakdown breakdown of skin of skin 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Univers bottom bottom 2-01 ity of foot foot 00:00: [place] deformity deformity 00 [facility] Branch Diabetic Diabetic Disease Active Unive [...] (BMI 3-07 ity of 30-39.9) 30-39.9) 00:00: [place] 00 Medical Branch Cellulitis Cellulitis Disease Active U nivers of foot, of foot, 3-06 ity of right right 00:00: [place] 00 [facility] Essential Essential Disease Active 2014-09 Uni vers hypertensi hypertensi 0-06 it y of on on 00:00: Medical Branch Erectile Erectile Disease Active 2014-09 Unive rs dysfunctio dysfunctio 0-06 it y of n, n, 00:00: [place] unspecifie unspecifie 00 Me dical d erectile d erectile Br anch dysfunctio dysfunctio n type n type Allergies, Adverse Reactions, Alerts Allergy Allergy Status Severity Reaction(s) Onset Inactive Treating Comm ents Source Name Type Date Date Clinician NO KNOWN Allergy Active [facility] NO KNOWN Drug [facility] Social History Social Habit Start Date Stop Date Quantity Comments Source Exposure to Not sure University of SARS-CoV-2 (event) [facility] Tobacco use and 2021-11-03 2021-11-03 Smokeless Sandra leonejarod exposure 00:00:00 00:00:00 tobacco non-user Cigarettes smoked 2020-10-20 2020-10-20 Univers ity of current (pack per 00:00:00 00:00:00 [facility] ) - Reported Branch Cigarette 2020-10-20 2020-10-20 University of pack-years 00:00:00 00:00:00 [facility] Alcohol intake 2020-10-20 2020-10-20 Current drinker Unive rsity of 00:00:00 00:00:00 of alcohol [facility] (finding) [place] Alcohol Comment 2017-06-13 2017-06-13 4-6 beers a day Univ ersity of 00:00:00 00:00:00 [facility] History of tobacco 2013-08-30 Cigarette Smoker University of use 00:00:00 [facility] Sex [birth year] At [birth year] Sandra Pina evgeny 00:00:00 00:00:00 Smoking Status Start Date Stop Date Source Ex-smoker 2021-11-03 00:00:00 2021-11-03 00:00:00 Sandra tony Medications Ordered Filled Start Stop Current Ordering Indication Dosage Frequency Signature Comments Components Source Medication Medication Date Date Medication? Clinician (SIG) Name Name Fluconazole Yes [id number] fluconazol Sandra 150 MG oral 15 e 150 mg Seyb old Tablet 14:36: tablet 04 Sodium 2021- No [id number] [facility] Ke lsey Hypochlorit 01-01 Solution Sey bold e (Dakins, 14:35: 00:00 0.5 % full 44 :00 strength,) 0.5 % apply externally Solution Silver 2021- No [id number] SSD 1 % Ke lsey sulfADIAZIN 01-01 topical Seyb old E (SSD) 1 % 14:35: 00:00 cream apply 32 :00 APPLY A externally 1/16 INCH Cream THICK LAYER TO ENTIRE BURN AREA TOPICALLY TWICE DAILY hydroCHLORO Yes [id number] TAKE 1 Sandra thiazide 25 -08 TABLET(25 Sey bold MG oral 00:00: MG) BY Tablet 00 MOUTH DAILY TRIMETHOPRI 2021- Yes 1{tbl} Take 1 Fabian licona M-SULFAMETH 12-22 tablet by Se ybold OXAZOLE 00:00: 04:59 mouth 3 (Bactrim 00 :00 times DS) 800-160 daily for MG oral 10 days Tablet Ceftriaxone 2021- No [id number] 2g K agustíny (ROCEPHIN) 11-03 Seybold injection 20:30: 21:10 00 :00 Ceftriaxone 2021- No [id number] 2g 2 g, K elsey (ROCEPHIN) 11-03 intramuscu Se ybold injection 20:30: 21:10 lar, ONCE, 00 :00 1 dose, On Tue11/03/21 at 1430
Fo r IM preparatio n, each 1 gram vial diluted with 2.1 mL 1% lidocaine to make 350 mg/mL. Inject desired dose IM.
Levofloxaci 2021- No [id number] 100mL 100 mL Sandra n in 11-03 every 24 Seybold Dextrose 5 14:17: 00:00 hours % 20 :00 (LEVAQUIN) 500 MG/100ML intravenous Solution Amoxicillin 2021- No [id number] amoxicilli Sandra -Pot 2-15 02-15 n 875 Seybold Clavulanate 14:17: 00:00 mg-potassi 875-125 MG 20 :00 um oral Tablet clavulanat e 125 mg tablet TAKE 1 TABLET BY MOUTH EVERY 12 HOURS Sodium Yes [id number] Dakin's Louis sey Hypochlorit 2-15 Solution Seyb old e (Dakmark, 13:16: 0.5 % full 01 strength,) 0.5 % apply externally Solution Silver Yes [id number] SSD 1 % Louis sey sulfADIAZIN 2-15 topical Seybo ld E (SSD) 1 % 13:16: cream apply 01 APPLY A externally 1/16 INCH Cream THICK LAYER TO ENTIRE BURN AREA TOPICALLY TWICE DAILY Fluconazole Yes [id number] fluconazol Sandra 150 MG oral 2-15 e 150 mg Seyb old Tablet 13:16: tablet 01 TRIMETHOPRI 2021- Yes [id number] 1{tbl} Take 1 Sandra M-SULFAMETH 207 11-06 tablet by Se ybold OXAZOLE 00:00: 05:59 mouth 2 800-160 MG 00 :00 times oral Tablet daily for 10 days TRIMETHOPRI Yes [id number] sulfametho Sandra M-SULFAMETH - xazole 800 Se ybold OXAZOLE 08:50: mg-trimeth 800-160 MG 14 oprim 160 oral Tablet mg tablet TAKE 1 TABLET BY MOUTH EVERY 12 HOURS FOR 5 DAYS Sodium Yes [id number] [facility] sey Hypochlorit 2-01 Solution Seyb [facility], 08:50: 0.5 % full 14 strength,) 0.5 % apply externally Solution Silver Yes [id number] SSD 1 % Louis sey sulfADIAZIN 2-01 topical Seybo ld E (SSD) 1 % 08:50: cream apply 14 APPLY A externally 1/16 INCH Cream THICK LAYER TO ENTIRE BURN AREA TOPICALLY TWICE DAILY Levofloxaci Yes [id number] 100mL 100 mL Sandra n in 2-01 every 24 Seybold Dextrose 5 08:50: hours % 14 (LEVAQUIN) 500 MG/100ML intravenous Solution Fluconazole Yes [id number] fluconazol Sandra 150 MG oral 2-01 e 150 mg Seyb old Tablet 08:50: tablet 14 Amoxicillin 2021-0 Yes [id number] amoxicilli Sandra -Pot 2-01 n 875 Seybold Clavulanate 08:50: mg-potassi 875-125 MG 14 um oral Tablet clavulanat e 125 mg tablet TAKE 1 TABLET BY MOUTH EVERY 12 HOURS Cyclobenzap 2021-0 Yes [id number] 10mg Q.[id number] Take 1 Sandra rine HCl 10 10-20 [id number] tablet (10 Seybold MG oral 00:00: 3D mg total) Tablet 00 by mouth 3 times daily as needed for muscle spasms Sennosides 2021- Yes [id number] 1{tbl} Take 1 Sandra (Senna) 8.6 10-20 9102 tablet by Sey bold MG oral 00:00: mouth 2 Tablet 00 times daily Metformin 2021-0 Yes [id number] 1000mg Take 2 Sandra HCl 500 MG 2-01 tablets Seybol d oral Tablet 00:00: (1,000 mg 00 total) by mouth 2 times daily (with meals) Dulaglutide 2021- Yes [id number] 1.5mg Inject 1.5 Sandra (Trulicity) 2-01 mg into Seybo ld 1.5 00:00: the skin MG/0.5ML 00 once a subcutaneou week s Solution Pen-injecto r Metformin 2021-0 Yes [id number] 1000mg Take 2 Sandra HCl 500 MG 2-01 tablets Seybol d oral Tablet 00:00: (1,000 mg 00 total) by mouth 2 times daily (with meals) Dulaglutide 2021-0 Yes [id number] 1.5mg Inject 1.5 Sandra (Trulicity) 2-01 mg into Seybo ld 1.5 00:00: the skin MG/0.5ML 00 once a subcutaneou week s Solution Pen-injecto r Cyclobenzap 2021- Yes [id number] 10mg Q.[id number] Take 1 Sandra rine HCl 10 - [id number] tablet (10 Seybold MG oral 00:00: 3D mg total) Tablet 00 by mouth 3 times daily as needed for muscle spasms Sennosides Yes [id number] 1{tbl} Take 1 Sandra (Senna) 8.6 2 9102 tablet by Sey bold MG oral 00:00: mouth 2 Tablet 00 times daily Metformin Yes [id number] 1000mg Take 2 Sandra HCl 500 MG 2-01 tablets Seybol d oral Tablet 00:00: (1,000 mg 00 total) by mouth 2 times daily (with meals) Dulaglutide Yes [id number] 1.5mg Inject 1.5 Sandra (Trulicity) 2-01 mg into Seybo ld 1.5 00:00: the skin MG/0.5ML 00 once a subcutaneou week s Solution Pen-injecto r Cyclobenzap 2021- No [id number] 10mg Q.[id number] Take 1 Sandra rine HCl 10 10-20 [id number] tablet (10 Seybold MG oral 00:00: 00:00 3D mg total) Tablet 00 :00 by mouth 3 times daily as needed for muscle spasms Sennosides 2021- No [id number] 1{tbl} Take 1 Sandra (Senna) 8.6 201-01 9102 tablet by Se ybold MG oral 00:00: 00:00 mouth 2 Tablet 00 :00 times daily SSD 1 % Yes [id number] APPLY A Ke lsey apply -19 1/16 INCH Seybold externally 00:00: THICK Cream 00 LAYER TO ENTIRE BURN AREA TOPICALLY TWICE DAILY SSD 1 % Yes [id number] APPLY A Ke lsey apply - 1/16 INCH Seybold externally 00:00: THICK Cream 00 LAYER TO ENTIRE BURN AREA TOPICALLY TWICE DAILY SSD 1 % 2021- No [id number] APPLY A K elsey apply 10-07-15 1/16 INCH Seybold externally 00:00: 00:00 THICK Cream 00 :00 LAYER TO ENTIRE BURN AREA TOPICALLY TWICE DAILY Sodium 2021- No [id number] 10mL 10 mL as K elsey chloride 09-25 needed Seybold flush 0.9 % 00:00: 05:59 intravenous 00 :00 Solution Heparin 2021- No [id number] 300U 300 units Sandra Sodium Lock 09-25 as needed Se ybold Flush 100 00:00: 05:59 UNIT/ML 00 :00 intravenous Solution Morphine Yes [id number] morphine Sandra Sulfate ER 1-06 ER 15 mg Seybo ld 15 MG oral 00:00: tablet,ext Tab CR 00 ended release Morphine Yes [id number] morphine Sandra Sulfate ER 1-06 ER 15 mg Seybo ld 15 MG oral 00:00: tablet,ext Tab CR 00 ended release Morphine 2021- No [id number] morphine Sandra Sulfate ER -06 04-15 ER 15 mg Seyb old 15 MG oral 00:00: 00:00 tablet,ext Tab CR 00 :00 ended release ceFAZolin 2021- No [id number] 2g Inject 2 g Sandra Sodium-Dext 09-24 into the Sey bold stefania 2-4 00:00: 05:59 vein GM/100ML-% 00 :00 intravenous Solution levoFLOXaci 2020-09 Yes [id number] TAKE 1 Sandra n 750 MG -12 TABLET BY Seybol d oral Tablet 00:00: MOUTH 00 EVERY DAY UNTIL ALL TAKEN levoFLOXaci 2020-09- No [id number] TAKE 1 Sandra n 750 MG -12 02-15 TABLET BY Seybo ld oral Tablet 00:00: 00:00 MOUTH 00 :00 EVERY DAY UNTIL ALL TAKEN Becaplermin Yes [id number] Apply 1 Sandra (Regranex) 04-16 applicatio Sey bold 0.01 % 00:00: n apply 00 topically externally daily Gel Becaplermin Yes [id number] Apply 1 Sandra (Regranex) 04-16 applicatio Sey bold 0.01 % 00:00: n apply 00 topically externally daily Gel Doxycycline Yes [id number] 100mg Take 1 Sandra Hyclate 100 04-16 tablet Seybol d MG oral 00:00: (100 mg Tablet 00 total) by mouth 2 times daily Becaplermin Yes [id number] Apply 1 Sandra (Regranex) 04-16 applicatio Sey bold 0.01 % 00:00: n apply 00 topically externally daily Gel levoFLOXaci Yes [id number] 500mg Take 1 Sandra n 7-29 tablet Seybold (Levaquin) 00:00: (500 mg 500 MG oral 00 total) by Tablet mouth daily Doxycycline 2021- No [id number] 100mg Take 1 Sandra Hyclate 100 7-29 02-15 tablet Seybo ld MG oral 00:00: 00:00 (100 mg Tablet 00 :00 total) by mouth 2 times daily levoFLOXaci 2021- No [id number] 500mg Take 1 Sandra n 7-29 02-15 tablet Seybold (Levaquin) 00:00: 00:00 (500 mg 500 MG oral 00 :00 total) by Tablet mouth daily Insulin Yes [id number] Takes Pamela ey Syringe-Nee 5-27 insulin Seybo ld dle U-100 00:00: BID 30G X 5/16" 00 0.5 ML does not apply Misc HUMALOG MIX Yes [id number] 20 units Sandra 75/25 5-27 SQ before Seybold (75-25) 100 00:00: breakfast UNIT/ML SC 00 and 15 SUSP units SQ before supper meal Insulin Yes [id number] Takes Pamela ey Syringe-Nee 5-27 insulin Seybo ld dle U-100 00:00: BID 30G X 5/16" 00 0.5 ML does not apply Misc HUMALOG MIX Yes [id number] 20 units Sandra 75/25 5-27 SQ before Seybold (75-25) 100 00:00: breakfast UNIT/ML SC 00 and 15 SUSP units SQ before supper meal Insulin Yes [id number] Takes Pamela ey Syringe-Nee 5-27 insulin Seybo ld dle U-100 00:00: BID 30G X 5/16" 00 0.5 ML does not apply Misc HUMALOG MIX 2021- No [id number] 20 units Sandra 75/25 5-27 04-15 SQ before Seybold (75-25) 100 00:00: 00:00 breakfast UNIT/ML SC 00 :00 and 15 SUSP units SQ before supper meal Dulaglutide 2021- No [id number] 1.5mg Inject 1.5 Sandra (Trulicity) 5-27 02-01 mg into Seyb old 1.5 00:00: 00:00 the skin MG/0.5ML 00 :00 once a subcutaneou week s Solution Pen-injecto r Lisinopril Yes [id number] 40mg Take 1 K elsey 40 MG oral 4-13 tablet (40 Sey bold Tablet 00:00: mg total) 00 by mouth daily Lisinopril Yes [id number] 40mg Take 1 K elsey 40 MG oral 4-13 tablet (40 Sey bold Tablet 00:00: mg total) 00 by mouth daily Lisinopril Yes [id number] 40mg Take 1 K elsey 40 MG oral 4-13 tablet (40 Sey bold Tablet 00:00: mg total) 00 by mouth daily Metformin 2021- No [id number] 1000mg Take 2 Sandra HCl 500 MG 4-13 - tablets Seybo ld oral Tablet 00:00: 00:00 (1,000 mg 00 :00 total) by mouth 2 times daily (with meals) Apixaban Yes [id number] 2.5mg Take 1 Ke lsey (Eliquis) 4-08 tablet Seybold 2.5 MG oral 00:00: (2.5 mg Tablet 00 total) by mouth 2 times daily Sildenafil Yes [id number] 100mg Take 1 Sandra Citrate 100 4-08 tablet Seybol d MG oral 00:00: (100 mg Tablet 00 total) by mouth as needed for erectile dysfunctio n Atorvastati Yes [id number] 40mg Take 1 Sandra n Calcium 4-08 tablet (40 Seyb old 40 MG oral 00:00: mg total) Tablet 00 by mouth daily hydroCHLORO Yes [id number] 25mg Take 1 Sandra thiazide 25 4-08 tablet (25 Se ybold MG oral 00:00: mg total) Tablet 00 by mouth daily Apixaban Yes [id number] 2.5mg Take 1 Ke lsey (Eliquis) 4-08 tablet Seybold 2.5 MG oral 00:00: (2.5 mg Tablet 00 total) by mouth 2 times daily Sildenafil Yes [id number] 100mg Take 1 Sandra Citrate 100 4-08 tablet Seybol d MG oral 00:00: (100 mg Tablet 00 total) by mouth as needed for erectile dysfunctio n Atorvastati Yes [id number] 40mg Take 1 Sandra n Calcium 4-08 tablet (40 Seyb old 40 MG oral 00:00: mg total) Tablet 00 by mouth daily Collagenase Yes [id number] Apply 1 Sandra (Santyl) 4-08 applicatio Seybo ld 250 UNIT/GM 00:00: n apply 00 topically externally daily Ointment hydroCHLORO Yes [id number] 25mg Take 1 Sandra thiazide 25 4-08 tablet (25 Se ybold MG oral 00:00: mg total) Tablet 00 by mouth daily Apixaban Yes [id number] 2.5mg Take 1 Moy brinkey (Eliquis) 4-08 tablet Seybold 2.5 MG oral 00:00: (2.5 mg Tablet 00 total) by mouth 2 times daily Sildenafil Yes [id number] 100mg Take 1 Sandra Citrate 100 4-08 tablet Seybol d MG oral 00:00: (100 mg Tablet 00 total) by mouth as needed for erectile dysfunctio n Atorvastati Yes [id number] 40mg Take 1 Sandra n Calcium 4-08 tablet (40 Seyb old 40 MG oral 00:00: mg total) Tablet 00 by mouth daily Collagenase Yes [id number] Apply 1 Sandra (Santyl) 4-08 applicatio Seybo ld 250 UNIT/GM 00:00: n apply 00 topically externally daily Ointment Collagenase 2020-0 2021- No [id number] Apply 1 Sandra (Santyl) 4-08 04-15 applicatio Seyb old 250 UNIT/GM 00:00: 00:00 n apply 00 :00 topically externally daily Ointment dapaglifloz 2019-09 Yes 5mg Take 5 mg U nivers in -23 by mouth. [facility] 5 19:20: [place] mg tablet 18 Medical [...] 17:12: [place] 10 mL 06 Medical Branch NaCl 0.9% 2016-09 Yes 10mL Univers (NS) 0-18 ity of injection 17:12: [place] [address] [place] [address] NaCl 0.9% 2016-09 Yes 10mL Univers (NS) 0-18 ity of injection 17:12: [place] [address] [place] [address] NaCl 0.9% 2016-09 Yes 10mL Univers (NS) 0-18 ity of injection 17:12: [place] [address] [place] [address] NaCl 0.9% 2016-09 Yes 10mL Univers (NS) 0-18 ity of injection 17:12: [place] [address] [place] [address] NaCl 0.9% 2016-09 Yes 10mL Univers (NS) 0-18 ity of injection 17:12: [place] [address] [place] [address] NaCl 0.9% 2016-09 Yes 10mL Univers (NS) 0-18 ity of injection 17:12: [place] [address] [place] [address] NaCl 0.9% 2016-09 Yes 10mL Univers (NS) 0-18 ity of injection 17:12: [place] [address] [place] [address] NaCl 0.9% 2016-09 Yes 10mL Univers (NS) 0-18 ity of injection 17:12: [place] [address] [place] [address] NaCl 0.9% 2016-09 Yes 10mL Univers (NS) 0-18 ity of injection 17:12: [place] [address] [place] [address] NaCl 0.9% 2016-09 Yes 10mL Univers (NS) 0-18 ity of injection 17:12: [place] [address] [place] [address] NaCl 0.9% 2016-09 Yes 10mL Univers (NS) 0-18 ity of injection 17:12: [address] NaCl 0.9% 2016-09 Yes 10mL Univers (NS) 0-18 ity of injection 17:12: [address] amLODIPine 2016-09 Yes [id number] 10mg Take 1 U nivers 10 mg 0-16 tablet by ity of tablet 00:00: mouth [place] 00 daily. Medical Branch insulin 2016-09 Yes [id number] 40U inject 40 U nivers glargine 0-16 Units ity of 100 unit/mL 00:00: [place] the [place] injection 00 skin at Medical bedtime. Branch blood sugar 2016-09 Yes [id number] Use TID, Univers diagnostic 0-16 DX E11.9 ity o f strip 00:00: (Brand [place] [address] [facility] Branch approval) lancets-blo 2016-09 Yes [id number] 1{each} 1 Each 2 Univers od glucose 0-16 (two) ity of strips 30 00:00: times [place] gauge Cmpk 00 daily. Medical Branch Blood-Gluco 2016-09 Yes [id number] Use TID, Univers se Meter 0-16 DX E11.9 ity of Kit 00:00: ([address] approval) sildenafil 2016-09 Yes [id number] Take 1 Tab Univers 25 mg 0-16 PO Daily 1 ity of tablet 00:00: hr (range: [place] 00 30 min - 4 Medical hrs) Branch before sexual activity as needed metFORMIN 2016-09 Yes [id number] 1000mg Take 2 Univers 500 mg 0-16 tablets by ity of tablet 00:00: mouth 2 [place] 00 (two) Medical times Branch daily with meals. hydroCHLORO 2016-09 Yes [id number] 25mg Take 1 Univers thiazide 25 0-16 tablet by ity of mg tablet 00:00: mouth [place] 00 daily. Medical Branch lisinopril 2016-09 Yes [id number] 5mg Take 1 U nivers 5 mg tablet 0-16 tablet by ity of 00:00: mouth [place] 00 daily. Medical Branch amLODIPine 2016-09 Yes [id number] 10mg Take 1 U nivers 10 mg 0-16 tablet by ity of tablet 00:00: mouth [place] 00 daily. Medical Branch insulin 2016-09 Yes [id number] 40U inject 40 U nivers glargine 0-16 Units ity of 100 unit/mL 00:00: [place] the [place] injection 00 skin at Medical bedtime. Branch blood sugar 2016-09 Yes [id number] Use TID, Univers diagnostic 0-16 DX E11.9 ity o f strip 00:00: ([address] approval) lancets-blo 2016-09 Yes [id number] 1{each} 1 Each 2 Univers od glucose 0-16 (two) ity of strips 30 00:00: times [place] gauge Cmpk 00 daily. Medical Branch Blood-Gluco 2016-09 Yes [id number] Use TID, Univers se Meter 0-16 DX E11.9 ity of Kit 00:00: ([address] approval) sildenafil 2016-09 Yes [id number] Take 1 Tab Univers 25 mg 0-16 PO Daily 1 ity of tablet 00:00: hr (range: [place] 00 30 min - 4 Medical hrs) Branch before sexual activity as needed metFORMIN 2016-09 Yes [id number] 1000mg Take 2 Univers 500 mg 0-16 tablets by ity of tablet 00:00: mouth 2 [place] 00 (two) Medical times Branch daily with meals. hydroCHLORO 2016-09 Yes [id number] 25mg Take 1 Univers thiazide 25 0-16 tablet by ity of mg tablet 00:00: mouth [place] 00 daily. Medical Branch lisinopril 2016-09 Yes [id number] 5mg Take 1 U nivers 5 mg tablet 0-16 tablet by ity of 00:00: mouth [place] 00 daily. Medical Branch amLODIPine 2016-09 Yes [id number] 10mg Take 1 U nivers 10 mg 0-16 tablet by ity of tablet 00:00: mouth [place] 00 daily. Medical Branch insulin 2016-09 Yes [id number] 40U inject 40 U nivers glargine 0-16 Units ity of 100 unit/mL 00:00: [place] the [place] injection 00 skin at Medical bedtime. Branch blood sugar 2016-09 Yes [id number] Use TID, Univers diagnostic 0-16 DX E11.9 ity o f strip 00:00: ([place] [address] upon [facility] approval) lancets-blo 2016-09 Yes [id number] 1{each} 1 Each 2 Univers od glucose 0-16 (two) ity of strips 30 00:00: times [place] gauge Cmpk 00 daily. Medical Branch Blood-Gluco 2016-09 Yes [id number] Use TID, Univers se Meter 0-16 DX E11.9 ity of Kit 00:00: ([address] approval) sildenafil 2016-09 Yes [id number] Take 1 Tab Univers 25 mg 0-16 PO Daily 1 ity of tablet 00:00: hr (range: [place] 00 30 min - 4 Medical hrs) Branch before sexual activity as needed metFORMIN 2016-09 Yes [id number] 1000mg Take 2 Univers 500 mg 0-16 tablets by ity of tablet 00:00: mouth 2 [place] 00 (two) Medical times Branch daily with meals. hydroCHLORO 2016-09 Yes [id number] 25mg Take 1 Univers thiazide 25 0-16 tablet by ity of mg tablet 00:00: mouth [place] 00 daily. Medical Branch lisinopril 2016-09 Yes [id number] 5mg Take 1 U nivers 5 mg tablet 0-16 tablet by ity of 00:00: mouth [place] 00 daily. Medical Branch amLODIPine 2016-09 Yes [id number] 10mg Take 1 U nivers 10 mg 0-16 tablet by ity of tablet 00:00: mouth [place] 00 daily. Medical Branch insulin 2016-09 Yes [id number] 40U inject 40 U nivers glargine 0-16 Units ity of 100 unit/mL 00:00: under the [place] injection 00 skin at Medical bedtime. Branch blood sugar 2016-09 Yes [id number] Use TID, Univers diagnostic 0-16 DX E11.9 ity o f strip 00:00: ([place] [address] upon [facility] approval) lancets-blo 2016-09 Yes [id number] 1{each} 1 Each 2 Univers od glucose 0-16 (two) ity of strips 30 00:00: times [place] gauge Cmpk 00 daily. Medical Branch Blood-Gluco 2016-09 Yes [id number] Use TID, Univers se Meter 0-16 DX E11.9 ity of Kit 00:00: ([address] approval) sildenafil 2016-09 Yes [id number] Take 1 Tab Univers 25 mg 0-16 PO Daily 1 ity of tablet 00:00: hr (range: [place] 00 30 min - 4 Medical hrs) Branch before sexual activity as needed metFORMIN 2016-09 Yes [id number] 1000mg Take 2 Univers 500 mg 0-16 tablets by ity of tablet 00:00: mouth 2 [place] 00 (two) Medical times Branch daily with meals. hydroCHLORO 2016-09 Yes [id number] 25mg Take 1 Univers thiazide 25 0-16 tablet by ity of mg tablet 00:00: mouth [place] 00 daily. Medical Branch lisinopril 2016-09 Yes [id number] 5mg Take 1 U nivers 5 mg tablet 0-16 tablet by ity of 00:00: mouth [place] 00 daily. Medical Branch amLODIPine 2016-09 Yes [id number] 10mg Take 1 U nivers 10 mg 0-16 tablet by ity of tablet 00:00: mouth [place] 00 daily. Medical Branch insulin 2016-09 Yes [id number] 40U inject 40 U nivers glargine 0-16 Units ity of 100 unit/mL 00:00: [place] the [place] injection 00 skin at Medical bedtime. Branch blood sugar 2016-09 Yes [id number] Use TID, Univers diagnostic 0-16 DX E11.9 ity o f strip 00:00: ([address] approval) lancets-blo 2016-09 Yes [id number] 1{each} 1 Each 2 Univers od glucose 0-16 (two) ity of strips 30 00:00: times [place] gauge Cmpk 00 daily. Medical Branch sildenafil 2016-09 Yes [id number] Take 1 Tab Univers 25 mg 0-16 PO Daily 1 ity of tablet 00:00: hr (range: [place] 00 30 min - 4 Medical hrs) Branch before sexual activity as needed Blood-Gluco 2016-09 Yes [id number] Use TID, Univers se Meter 0-16 DX E11.9 ity of Kit 00:00: ([address] approval) sildenafil 2016-09 Yes [id number] Take 1 Tab Univers 25 mg 0-16 PO Daily 1 ity of tablet 00:00: hr (range: [place] 00 30 min - 4 Medical hrs) Branch before sexual activity as needed metFORMIN 2016-09 Yes [id number] 1000mg Take 2 [facility] 500 mg 0-16 tablets by ity of tablet 00:00: mouth 2 [place] 00 (two) Medical times Branch daily with meals. metFORMIN 2016-09 Yes [id number] 1000mg Take 2 Univers 500 mg 0-16 tablets by ity of tablet 00:00: mouth 2 [place] 00 (two) Medical times Branch daily with meals. hydroCHLORO 2016-09 Yes [id number] 25mg Take 1 Univers thiazide 25 0-16 tablet by ity of mg tablet 00:00: mouth [place] 00 daily. Medical Branch lisinopril 2016-09 Yes [id number] 5mg Take 1 U nivers 5 mg tablet 0-16 tablet by ity of 00:00: mouth [place] 00 daily. Medical Branch amLODIPine 2016-09 Yes [id number] 10mg Take 1 U nivers 10 mg 0-16 tablet by ity of tablet 00:00: mouth [place] 00 daily. Medical Branch insulin 2016-09 Yes [id number] 40U inject 40 U nivers glargine 0-16 Units ity of 100 unit/mL 00:00: [place] injection 00 skin at Medical bedtime. Branch blood sugar 2016-09 Yes [id number] Use TID, Univers diagnostic 0-16 DX E11.9 ity o f strip 00:00: (Brand [place] 00 upon Medical insurance Branch approval) lancets-blo 2016-09 Yes [id number] 1{each} 1 Each 2 Univers od glucose 0-16 (two) ity of strips 30 00:00: times [place] gauge Cmpk 00 daily. Medical Branch Blood-Gluco 2016-09 Yes [id number] Use TID, Univers se Meter 0-16 DX E11.9 ity of Kit 00:00: (Brand [place] upon [facility] Branch approval) hydroCHLORO 2016-09 Yes [id number] 25mg Take 1 Univers thiazide 25 0-16 tablet by ity of mg tablet 00:00: mouth [place] 00 daily. Medical Branch sildenafil 2016-09 Yes [id number] Take 1 Tab Univers 25 mg 0-16 PO Daily 1 ity of tablet 00:00: hr (range: [place] 00 30 min - 4 Medical hrs) Branch before sexual activity as needed metFORMIN 2016-09 Yes [id number] 1000mg Take 2 Univers 500 mg 0-16 tablets by ity of tablet 00:00: mouth 2 [place] 00 (two) Medical times Branch daily with meals. hydroCHLORO 2016-09 Yes [id number] 25mg Take 1 Univers thiazide 25 0-16 tablet by ity of mg tablet 00:00: mouth [place] 00 daily. Medical Branch lisinopril 2016-09 Yes [id number] 5mg Take 1 U nivers 5 mg tablet 0-16 tablet by ity of 00:00: mouth [place] 00 daily. Medical Branch lisinopril 2016-09 Yes [id number] 5mg Take 1 U nivers 5 mg tablet 0-16 tablet by ity of 00:00: mouth [place] 00 daily. Medical Branch amLODIPine 2016-09 Yes [id number] 10mg Take 1 U nivers 10 mg 0-16 tablet by ity of tablet 00:00: mouth [place] 00 daily. Medical Branch insulin 2016-09 Yes [id number] 40U inject 40 U nivers glargine 0-16 Units ity of 100 unit/mL 00:00: [place] injection 00 skin at Medical bedtime. Branch blood sugar 2016-09 Yes [id number] Use TID, Univers diagnostic 0-16 DX E11.9 ity o f strip 00:00: (Brand [place] upon [facility] insurance Branch approval) lancets-blo 2016-09 Yes [id number] 1{each} 1 Each 2 Univers od glucose 0-16 (two) ity of strips 30 00:00: times [place] gauge Cmpk 00 daily. Medical Branch Blood-Gluco 2016-09 Yes [id number] Use TID, Univers se Meter 0-16 DX E11.9 ity of Kit 00:00: ([facility] insurance Branch approval) amLODIPine 2016-09 Yes [id number] 10mg Take 1 U nivers 10 mg 0-16 tablet by ity of tablet 00:00: mouth [place] 00 daily. Medical Branch sildenafil 2016-09 Yes [id number] Take 1 Tab Univers 25 mg 0-16 PO Daily 1 ity of tablet 00:00: hr (range: [place] 00 30 min - 4 Medical hrs) Branch before sexual activity as needed metFORMIN 2016-09 Yes [id number] 1000mg Take 2 [facility] 500 mg 0-16 tablets by ity of tablet 00:00: mouth 2 [place] 00 (two) Medical times Branch daily with meals. hydroCHLORO 2016-09 Yes [id number] 25mg Take 1 Univers thiazide 25 0-16 tablet by ity of mg tablet 00:00: mouth [place] 00 daily. Medical Branch lisinopril 2016-09 Yes [id number] 5mg Take 1 U nivers 5 mg tablet 0-16 tablet by ity of 00:00: mouth [place] 00 daily. Medical Branch amLODIPine 2016-09 Yes [id number] 10mg Take 1 U nivers 10 mg 0-16 tablet by ity of tablet 00:00: mouth [place] 00 daily. Medical Branch insulin 2016-09 Yes [id number] 40U inject 40 U nivers glargine 0-16 Units ity of 100 unit/mL 00:00: [place] injection 00 skin at Medical bedtime. Branch insulin 2016-09 Yes [id number] 40U inject 40 U nivers glargine 0-16 Units ity of 100 unit/mL 00:00: [place] the [place] injection 00 skin at Medical bedtime. Branch blood sugar 2016-09 Yes [id number] Use TID, Univers diagnostic 0-16 DX E11.9 ity o f strip 00:00: ([facility] insurance Branch approval) lancets-blo 2016-09 Yes [id number] 1{each} 1 Each 2 Univers od glucose 0-16 (two) ity of strips 30 00:00: times [place] gauge Cmpk 00 daily. Medical Branch Blood-Gluco 2016-09 Yes [id number] Use TID, Univers se Meter 0-16 DX E11.9 ity of Kit 00:00: ([facility] upon [facility] approval) blood sugar 2016-09 Yes [id number] Use TID, Univers diagnostic 0-16 DX E11.9 ity o f strip 00:00: ([facility] upon [facility] approval) sildenafil 2016-09 Yes [id number] Take 1 Tab [facility] 25 mg 0-16 PO Daily 1 ity of tablet 00:00: hr (range: [place] 00 30 min - 4 Medical hrs) Branch before sexual activity as needed metFORMIN 2016-09 Yes [id number] 1000mg Take 2 Univers 500 mg 0-16 tablets by ity of tablet 00:00: mouth 2 [place] 00 (two) Medical times Branch daily with meals. hydroCHLORO 2016-09 Yes [id number] 25mg Take 1 Univers thiazide 25 0-16 tablet by ity of mg tablet 00:00: mouth [place] 00 daily. Medical Branch lisinopril 2016-09 Yes [id number] 5mg Take 1 U nivers 5 mg tablet 0-16 tablet by ity of 00:00: mouth [place] 00 daily. Medical Branch amLODIPine 2016-09 Yes [id number] 10mg Take 1 U nivers 10 mg 0-16 tablet by ity of tablet 00:00: mouth [place] 00 daily. Medical Branch insulin 2016-09 Yes [id number] 40U inject 40 U nivers glargine 0-16 Units ity of 100 unit/mL 00:00: [place] the [place] injection 00 skin at Medical bedtime. Branch blood sugar 2016-09 Yes [id number] Use TID, Univers diagnostic 0-16 DX E11.9 ity o f strip 00:00: ([facility] upon [facility] approval) lancets-blo 2016-09 Yes [id number] 1{each} 1 Each 2 Univers od glucose 0-16 (two) ity of strips 30 00:00: times [place] gauge Cmpk 00 daily. Medical Branch Blood-Gluco 2016-09 Yes [id number] Use TID, Univers se Meter 0-16 DX E11.9 ity of Kit 00:00: ([facility] upon [facility] approval) lancets-blo 2016-09 Yes [id number] 1{each} 1 Each 2 Univers od glucose 0-16 (two) ity of strips 30 00:00: times [place] gauge Cmpk 00 daily. Medical Branch Blood-Gluco 2016-09 Yes [id number] Use TID, Univers se Meter 0-16 DX E11.9 ity of Kit 00:00: ([place] [address] [facility] Branch approval) sildenafil 2016-09 Yes [id number] Take 1 Tab Univers 25 mg 0-16 PO Daily 1 ity of tablet 00:00: hr (range: [place] 00 30 min - 4 Medical hrs) Branch before sexual activity as needed metFORMIN 2016-09 Yes [id number] 1000mg Take 2 Univers 500 mg 0-16 tablets by ity of tablet 00:00: mouth 2 [place] 00 (two) Medical times Branch daily with meals. hydroCHLORO 2016-09 Yes [id number] 25mg Take 1 Univers thiazide 25 0-16 tablet by ity of mg tablet 00:00: mouth [place] 00 daily. Medical Branch lisinopril 2016-09 Yes [id number] 5mg Take 1 U nivers 5 mg tablet 0-16 tablet by ity of 00:00: mouth [place] 00 daily. Medical Branch amLODIPine 2016-09 Yes [id number] 10mg Take 1 U nivers 10 mg 0-16 tablet by ity of tablet 00:00: mouth [place] 00 daily. Medical Branch insulin 2016-09 Yes [id number] 40U inject 40 U nivers glargine 0-16 Units ity of 100 unit/mL 00:00: [place] the [place] injection 00 skin at Medical bedtime. Branch blood sugar 2016-09 Yes [id number] Use TID, Univers diagnostic 0-16 DX E11.9 ity o f strip 00:00: ([place] [address] [facility] Branch approval) lancets-blo 2016-09 Yes [id number] 1{each} 1 Each 2 Univers od glucose 0-16 (two) ity of strips 30 00:00: times [place] gauge Cmpk 00 daily. Medical Branch Blood-Gluco 2016-09 Yes [id number] Use TID, Univers se Meter 0-16 DX E11.9 ity of Kit 00:00: ([place] [address] [facility] Branch approval) sildenafil 2016-09 Yes [id number] Take 1 Tab Univers 25 mg 0-16 PO Daily 1 ity of tablet 00:00: hr (range: [place] 00 30 min - 4 Medical hrs) Branch before sexual activity as needed metFORMIN 2016-09 Yes [id number] 1000mg Take 2 Univers 500 mg 0-16 tablets by ity of tablet 00:00: mouth 2 [place] 00 (two) Medical times Branch daily with meals. hydroCHLORO 2016-09 Yes [id number] 25mg Take 1 Univers thiazide 25 0-16 tablet by ity of mg tablet 00:00: mouth [place] 00 daily. Medical Branch lisinopril 2016-09 Yes [id number] 5mg Take 1 U nivers 5 mg tablet 0-16 tablet by ity of 00:00: mouth [place] 00 daily. Medical Branch amLODIPine 2016-09 Yes [id number] 10mg Take 1 U nivers 10 mg 0-16 tablet by ity of tablet 00:00: mouth [place] 00 daily. Medical Branch insulin 2016-09 Yes [id number] 40U inject 40 U nivers glargine 0-16 Units ity of 100 unit/mL 00:00: under the [place] injection 00 skin at Medical bedtime. Branch blood sugar 2016-09 Yes [id number] Use TID, Univers diagnostic 0-16 DX E11.9 ity o f strip 00:00: ([address] approval) lancets-blo 2016-09 Yes [id number] 1{each} 1 Each 2 Univers od glucose 0-16 (two) ity of strips 30 00:00: times [place] gauge Cmpk 00 daily. Medical Branch Blood-Gluco 2016-09 Yes [id number] Use TID, Univers se Meter 0-16 DX E11.9 ity of Kit 00:00: ([address] approval) sildenafil 2016-09 Yes [id number] Take 1 Tab Univers 25 mg 0-16 PO Daily 1 ity of tablet 00:00: hr (range: [place] 00 30 min - 4 Medical hrs) Branch before sexual activity as needed metFORMIN 2016-09 Yes [id number] 1000mg Take 2 Univers 500 mg 0-16 tablets by ity of tablet 00:00: mouth 2 [place] 00 (two) Medical times Branch daily with meals. hydroCHLORO 2016-09 Yes [id number] 25mg Take 1 Univers thiazide 25 0-16 tablet by ity of mg tablet 00:00: mouth [place] 00 daily. Medical Branch lisinopril 2016-09 Yes [id number] 5mg Take 1 U nivers 5 mg tablet 0-16 tablet by ity of 00:00: mouth [place] 00 daily. Medical Branch amLODIPine 2016-09 Yes [id number] 10mg Take 1 U nivers 10 mg 0-16 tablet by ity of tablet 00:00: mouth [place] 00 daily. Medical Branch insulin 2016-09 Yes [id number] 40U inject 40 U nivers glargine 0-16 Units ity of 100 unit/mL 00:00: under the [place] injection 00 skin at Medical bedtime. Branch blood sugar 2016-09 Yes [id number] Use TID, Univers diagnostic 0-16 DX E11.9 ity o f strip 00:00: ([place] [address] [facility] Branch approval) lancets-blo 2016-09 Yes [id number] 1{each} 1 Each 2 Univers od glucose 0-16 (two) ity of strips 30 00:00: times [place] gauge Cmpk 00 daily. Medical Branch Blood-Gluco 2016-09 Yes [id number] Use TID, Univers se Meter 0-16 DX E11.9 ity of Kit 00:00: ([facility] [address] [facility] Branch approval) sildenafil 2016-09 Yes [id number] Take 1 Tab Univers 25 mg 0-16 PO Daily 1 ity of tablet 00:00: hr (range: [place] 00 30 min - 4 Medical hrs) Branch before sexual activity as needed metFORMIN 2016-09 Yes [id number] 1000mg Take 2 Univers 500 mg 0-16 tablets by ity of tablet 00:00: mouth 2 [place] 00 (two) Medical times Branch daily with meals. hydroCHLORO 2016-09 Yes [id number] 25mg Take 1 Univers thiazide 25 0-16 tablet by ity of mg tablet 00:00: mouth [place] 00 daily. [facility] Branch lisinopril 2016-09 Yes [id number] 5mg Take 1 U nivers 5 mg tablet 0-16 tablet by ity of 00:00: mouth [place] 00 daily. [facility] Branch Immunizations Ordered Immunization Filled Immunization Date Status Commen ts Source Name Name Influenza, 2021-08-31 Completed Sandra Argueta Injectable, Mdck, 00:00:00 Quadrivalent With Preservatie Influenza, 2021-08-31 Completed Sandra Argueta Injectable, Mdck, 00:00:00 Quadrivalent With Preservatie Influenza, 2021-08-31 Completed Sandra Argueta Injectable, Mdck, 00:00:00 Quadrivalent With Preservatie Covid-19 Vaccine 2020-12-03 Completed Sandra Flores (Spikevax), 00:00:00 Mrna-lnp, [place] [employer], Pf Covid-19 Vaccine 2020-12-03 Completed Sandra tony Moderna (Spikevax), 00:00:00 Mrna-lnp, [place] [employer], Pf Covid-19 Vaccine 2020-12-03 Completed Sandra mojicabold Moderna (Spikevax), 00:00:00 Mrna-lnp, [place] [employer], Pf Covid-19 Vaccine 2020-12-03 Completed Sandra tony Moderna (Spikevax), 00:00:00 Mrna-lnp, [place] [employer], Pf Covid-19 Vaccine 2020-12-03 Completed Sandra rodriguezld (Moderna), Mrna-lnp, 00:00:00 [place] [employer], Pf, 100 Mcg/0.5ml,IM Covid-19 Vaccine 2020-12-03 Completed Sandra rodriguezld (Moderna), Mrna-lnp, 00:00:00 [place] [employer], Pf, 100 Mcg/0.5ml,IM Influenza Virus 2020-06-11 Completed Sandra Pina ybold Vaccine, Unspecified 00:00:00 Formulation Influenza Virus 2020-06-11 Completed Sandra Se ybold Vaccine, Unspecified 00:00:00 Formulation Influenza Virus 2020-06-11 Completed Sandra Pina ybold Vaccine, Unspecified 00:00:00 Formulation Influenza Virus 2020-06-11 Completed [facility] 2020-06-11 Completed [facility] y [facility] Vaccine 00:[facility] Influ[facility] Virus 2020-06-11 Completed [facility]it y of Vaccine 00:00:00 [facility] Influenza Virus 2020-06-11 Completed Universit y of Vaccine 00:00:00 [facility] Influenza Virus 2020-06-11 Completed Universit y of Vaccine 00:00:00 [facility] Influenza Virus 2020-06-11 Completed Universit y of Vaccine 00:00:00 [facility] Influenza Virus 2020-06-11 Completed [facility]it y of Vaccine 00:00:00 [facility] Influenza Virus 2020-06-11 Completed Universit y of Vaccine 00:00:00 [facility] Influenza Virus 2020-06-11 Completed [facility]it y of Vaccine 00:00:00 [facility] Influenza Virus 2020-06-11 Completed Universit y of Vaccine 00:00:00 [facility] Influenza Virus 2020-06-11 Completed Universit y of Vaccine 00:00:00 [facility] Influenza Virus 2020-06-11 Completed [facility]it y [facility] Vaccine 00:00:00 [facility] Influenza, Seasonal, 2019-08-25 Completed Pamela ey Seybold Injectable, 00:00:00 Preservative Free Pneumococcal Vaccine, 2019-08-25 Completed Louis sey Seybold Polysaccharide 00:00:00 Influenza, Seasonal, 2019-08-25 Completed Pamela ey Seybold Injectable, 00:00:00 Preservative Free Pneumococcal Vaccine, 2019-08-25 Completed Louis sey Seybold Polysaccharide 00:00:00 Influenza, Seasonal, 2019-08-25 Completed Pamela ey Seybold Injectable, 00:00:00 Preservative Free Pneumococcal Vaccine, 2019-08-25 Completed Louis sey Seybold Polysaccharide 00:00:00 Influenza Virus 2016-11-24 Completed Sandra Se ybold Vaccine, No Preserv, 00:00:00 age 6 months and up Pneumococcal Vaccine, 2016-11-24 Completed Louis sey Seybold Polysaccharide 00:00:00 Influenza Virus 2016-11-24 Completed Sandra Se ybold Vaccine, No Preserv, 00:00:00 age 6 months and up Pneumococcal Vaccine, 2016-11-24 Completed Louis sey Seybold Polysaccharide 00:00:00 Influenza Virus 2016-11-24 Completed Sandra Se ybold Vaccine, No Preserv, 00:00:00 age 6 months and up Pneumococcal Vaccine, 2016-11-24 Completed Louis sey Seybold Polysaccharide 00:00:00 Pneumococcal 2016-11-24 Completed University o f Polysaccharide, 00:00:00 [place] Med ical PPSV23 (PNEUMOVAX) Branch Influenza Virus 2016-11-24 Completed Universit y of Vaccine Quad IM 3+ 00:00:00 [facility] Pneumococcal 2016-11-24 Completed University o f Polysaccharide, 00:00:00 [place] Med ical PPSV23 (PNEUMOVAX) Branch Influenza Virus 2016-11-24 Completed Universit y of Vaccine Quad IM 3+ 00:00:00 [facility] Pneumococcal 2016-11-24 Completed University o f Polysaccharide, 00:00:00 [place] Med ical PPSV23 (PNEUMOVAX) [place] Influenza Virus 2016-11-24 Completed Universit y of Vaccine Quad IM 3+ 00:00:00 [facility] Pneumococcal 2016-11-24 Completed University o f Polysaccharide, 00:00:00 [place] Med ical PPSV23 (PNEUMOVAX) Branch Influenza Virus 2016-11-24 Completed Universit y of Vaccine Quad IM 3+ 00:00:00 [facility] Pneumococcal 2016-11-24 Completed University o f Polysaccharide, 00:00:00 [place] Med ical PPSV23 (PNEUMOVAX) Branch Influenza Virus 2016-11-24 Completed Universit y of Vaccine Quad IM 3+ 00:00:00 [facility] Pneumococcal 2016-11-24 Completed University o f Polysaccharide, 00:00:00 [place] Med ical PPSV23 (PNEUMOVAX) Branch Influenza Virus 2016-11-24 Completed Universit y of Vaccine Quad IM 3+ 00:00:00 [facility] Pneumococcal 2016-11-24 Completed University o f Polysaccharide, 00:00:00 [place] Med ical PPSV23 (PNEUMOVAX) Branch Influenza Virus 2016-11-24 Completed Universit y of Vaccine Quad IM 3+ 00:00:00 [facility] Pneumococcal 2016-11-24 Completed University o f Polysaccharide, 00:00:00 [place] Med ical PPSV23 (PNEUMOVAX) Branch Influenza Virus 2016-11-24 Completed Universit y of Vaccine Quad IM 3+ 00:00:00 [facility] Pneumococcal 2016-11-24 Completed University o f Polysaccharide, 00:00:00 [place] Med ical PPSV23 (PNEUMOVAX) Branch Influenza Virus 2016-11-24 Completed Universit y of Vaccine Quad IM 3+ 00:00:00 [facility] Pneumococcal 2016-11-24 Completed University o f Polysaccharide, 00:00:00 [place] Med ical PPSV23 (PNEUMOVAX) Branch Influenza Virus 2016-11-24 Completed Universit y of Vaccine Quad IM 3+ 00:00:00 [facility] Pneumococcal 2016-11-24 Completed University o f Polysaccharide, 00:00:00 [place] Med ical PPSV23 (PNEUMOVAX) Branch Influenza Virus 2016-11-24 Completed Universit y of Vaccine Quad IM 3+ 00:00:00 [facility] Pneumococcal 2016-11-24 Completed University o f Polysaccharide, 00:00:00 [place] Med ical PPSV23 (PNEUMOVAX) Branch Influenza Virus 2016-11-24 Completed Universit y of Vaccine Quad IM 3+ 00:00:00 [facility] Pneumococcal 2016-11-24 Completed University o f Polysaccharide, 00:00:00 [facility] ical PPSV23 (PNEUMOVAX) Branch Influenza Virus 2016-11-24 Completed Universit y of Vaccine Quad IM 3+ 00:00:00 [facility] Branch Td (adult) 2016-11-22 Completed Sandra Pinaybold 00:00:00 Td (adult) 2016-11-22 Completed Sandra Pinaybold 00:00:00 Td (adult) 2016-11-22 Completed Sandra Pinaybold 00:00:00 Td 2016-11-22 Completed [facility] Td 2016-11-22 Completed [facility] Td 2016-11-22 Completed [facility] 00[facility]00:00 [facility] Td 2016-11-22 Completed [facility] 00:00:00 [facility] Td 2016-11-22 Completed [facility] 00:00:00 [facility] Td 2016-11-22 Completed University [facility] 00:00:00 [facility] Td 2016-11-22 Completed [facility] 00:00:00 [facility] Td 2016-11-22 Completed University [facility] 00:00:00 [facility] Td 2016-11-22 Completed University [facility] 00:00:00 [facility] Td 2016-11-22 Completed [facility] 00:00:00 [facility] Td 2016-11-22 Completed [facility] 00:00:00 [facility] Td 2016-11-22 Completed [facility] 00:00:00 [facility] Td 2016-11-22 Completed [facility] 00:[facility]:00 [facility] Vital Signs Vital Name Observation Time Observation Value Comments Source Systolic blood 2022-01-01 153 mm[Hg] per pt Sandra Pinaybaugusto d pressure 19:29:00 Diastolic blood 2022-01-01 93 mm[Hg] per pt Sandra Pinaybjose ld pressure 19:29:00 Body temperature 2022-01-01 36.33 Makenzie Sandra yb old 19:29:00 Body height 2022-01-01 182.9 cm per pt Sandra Seybold 19:29:00 Body weight 2022-01-01 117.935 kg per pt Sandra Pinaybold 19:29:00 BMI 2022-01-01 35.26 kg/m2 Sandra Pinaybjarod 19:29:00 Systolic blood 2021-11-03 158 mm[Hg] Sandra Seybol d pressure 19:16:00 Diastolic blood 2021-11-03 96 mm[Hg] Sandra Seybo ld pressure 19:16:00 Heart rate 2021-11-03 90 /min Sandra Seybold 19:16:00 Body temperature 2021-11-03 36.72 Makenzie Sandra Lozano old 19:16:00 Respiratory rate 2021-11-03 14 /min Sandra Lozano old 19:16:00 Body height 2021-11-03 182.9 cm Sandra Seybold 19:16:00 Body weight 2021-11-03 117.935 kg patient reports Sandra Pinaybo ld 19:16:00 BMI 2021-11-03 35.26 kg/m2 Sandra Pinaybold 19:16:00 Systolic blood 2021-10-20 136 mm[Hg] Sandra Seybol d pressure 14:49:00 Diastolic blood 2021-10-20 76 mm[Hg] Sandra Seybo ld pressure 14:49:00 Heart rate 2021-10-20 113 /min Sandra Pinaybold 14:49:00 Body temperature 2021-10-20 36.72 Makenzie Sandra Lozano old 14:49:00 Respiratory rate 2021-10-20 15 /min Sandra Lozano old 14:49:00 Body height 2021-10-20 182.9 cm Sandra Pinaybold 14:49:00 Body temperature 2020-10-20 36.67 Makenzie [facility] Body height 2020-10-20 180.3 cm [facility] 16:33:00 [facility] Body weight 2020-10-20 121.11 kg [facility] 16:33:00 [facility] BMI 2020-10-20 37.24 kg/m2 University [facility] 16:33:00 [facility] Body temperature 2020-09-29 36.44 Makenzie [facility] 15:34:00 [facility] Body weight 2020-09-29 121.473 kg University [facility] 15:34:00 [facility] BMI 2020-09-29 37.35 kg/m2 University [facility] 15:34:00 [facility] Systolic blood 2020-08-11 177 mm[Hg] University of pressure 19:17:00 [facility] Diastolic blood 2020-08-11 101 mm[Hg] [place] o f pressure 19:17:00 [facility] Heart rate 2020-08-11 110 /min [facility] 19:17:00 [facility] Body temperature 2020-08-11 36.44 Makenzie University 19:15:00 [facility] Respiratory rate 2020-08-11 16 /min University 19:15:00 [facility] Body height 2020-08-11 180.3 cm University 19:15:00 [facility] Body weight 2020-08-11 121.473 kg University 19:15:00 [facility] BMI 2020-08-11 37.35 kg/m2 University 19:15:00 [facility] Procedures Procedure Date / Time Performed Performing Clinician Sourc e XR FOOT 3+ VW RIGHT 2020-09-29 16:15:00 Kaye Keller [facility] ASSIGNMENT OF BENEFITS 2020-08-11 19:07:32 Doctor Unassigned, No [facility] Name [facility] Encounters Start End Encounter Admission Attending Care Care Encounter Source Date/Time Date/Time Type Type Clinicians Facility Department ID 2022-01-01 2022-01-01 [facility] Anabelle Orange [id number] Sandra 14:30:00 15:08:38 ne [facility] [id number] Se evgeny Clifford [id number] 2021-12-28 2021-12-28 Outpatient LAB90 SANDRA MCDANIELS [id number] Sandra 13:45:00 13:45:00 Minerva vallejo 2021-12-22 2021-12-22 Outpatient ANABELLE MCDANIELS [id number] Sandra 00:00:00 00:00:00 Minerva MCMAHAN 2021-12-21 2021-12-21 Outpatient SHELBI MCDANIELS [id number] Sandra 00:00:00 00:00:00 MD Minerva VAUGHN 2021-11-25 2021-11-25 Outpatient ANABELLE MCDANIELS [id number] Sandra 14:00:00 14:00:00 Minerva MCMAHAN 2021-11-24 2021-11-24 Outpatient AKINEVERETT SANDRA MCDANIELS [id number] Sandra 09:00:00 09:00:00 MAGALIS Seybol d 2021-11-19 2021-11-19 Outpatient STEVIE SANDRA MCDANIELS [id number] Sandra 00:00:00 00:00:00 TEETEE Seybol d 2021-11-17 2021-11-17 [facility] SANDRA MCDANIELS [id number] Sandra 00:00:00 00:00:00 MD JOHANA Seybol d 2021-11-16 2021-11-16 Outpatient STEVIE SANDRA MCDANIELS [id number] Sandra 00:00:00 00:00:00 TEETEE Seybol d 2021-11-11 2021-11-11 Outpatient STEVIE SANDRA MCDANIELS [id number] Sandra 08:00:00 08:00:00 TEETEE Seybol d 2021-11-11 2021-11-11 Outpatient STEVIE SANDRA MCDANIELS [id number] Sandra 00:00:00 00:00:00 TEETEE Seybol d 2021-11-04 2021-11-04 Outpatient STEVIE SANDRA MCDANIELS [id number] Sandra 00:00:00 00:00:00 TEETEE Seybol d 2021-11-03 2021-11-03 Outpatient LAB39 SANDRA MCDANIELS [id number] Sandra 15:15:00 15:15:00 Seybol d 2021-11-03 2021-11-03 Office [facility] [id number] Sandra 13:30:00 14:30:00 Visit [facility] [id number] [facility] 1.2.7.2.686 [id number] 2021-10-28 2021-10-28 Outpatient SANDRA ALMONTE [id number] Sandra 00:00:00 00:00:00 MARY Seybol d 2021-10-26 2021-10-26 Outpatient SANDRA ALMONTE [id number] Sandra 00:00:00 00:00:00 MARY Seybol d 2021-10-26 2021-10-26 Outpatient HILDA-LATI SANDRA MCDANIELS [id number] Sandra 00:00:00 00:00:00 MARJ, Seybol d CORRIE 2021-10-20 2021-10-20 Outpatient NUL88-EWT SANDRA MCDANIELS [id number] Sandra 10:15:00 10:15:00 Seybol d 2021-10-20 2021-10-20 Outpatient LAB90 SANDRA MCDANIELS [id number] Sandra 10:10:00 10:10:00 Seybol d 2021-10-20 2021-10-20 Office Ramesh Almonte [id number] Sandra 09:00:00 09:30:00 Visit Mary Elias 350.1.13.13 evgeny 1.2.7.2.686 [id number] 2021-09-18 2021-09-25 Inpatient UR NIALL [facility] Neurosurger 20 [id number] [facility] 16:39:00 18:24:00 MRINALINI y 2021-05-18 2021-05-18 Outpatient AKINEVERETT, SANDRA MCDANIELS [id number] Sandra 10:15:00 10:15:00 MAGALIS Seybol d 2021-05-15 2021-05-15 Outpatient AKINADE, SANDRA MCDANIELS [id number] Sandra 00:00:00 00:00:00 MAGALIS Seybol d 2021-04-28 2021-04-28 Outpatient AKINADE, SANDRA MCDANIELS [id number] Sandra 00:00:00 00:00:00 MAGALIS Seybol d 2021-04-27 2021-04-27 Outpatient AKINADE, SANDRA MCDANIELS [id number] Sandra 00:00:00 00:00:00 MAGALIS Seybol d 2021-04-22 2021-04-22 Outpatient AKINADE, SANDRA MCDANIELS [id number] Sandra 00:00:00 00:00:00 MAGALIS Seybol d 2021-04-20 2021-04-20 Outpatient AKINADE, SANDRA MCDANIELS [id number] Sandra 00:00:00 00:00:00 MAGALIS Seybol d 2021-04-172021-04-17 Outpatient BENJAMINEVERETT SANDRA MCDANIELS [id number] Sandra 00:00:00 00:00:00 MAGALIS Seybol d 2021-04-17 2021-04-17 Outpatient MARITZA LEWIS SANDRA MCDANIELS [id number] Sandra 00:00:00 00:00:00 Seybol d 2021-04-16 2021-04-16 Outpatient SANDRA ERNANDEZ [id number] Sandra 08:30:00 08:30:00 MAGALIS Seybol d 2021-04-16 2021-04-16 Outpatient EKT60-AET SANDRA MCDANIELS [id number] Sandra 08:20:00 08:20:00 Seybol d 2021-04-06 2021-04-06 Outpatient SANDRA FERMIN [id number] Sandra 00:00:00 00:00:00 ROSALBA Seybol d 2021-04-04 2021-04-04 Outpatient SANDRA FERMIN [id number] Sandra 00:00:00 00:00:00 ROSALBA Seybol d 2020-12-02 2020-12-02 Patient Quentin [facility] 1.2.840.114 [id number] Univers 00:00:00 00:00:00 Outreach Lars PRIMARY 350.1.13.10 i ty of [facility] 4.2.7.2.686 [facility] [phone] Ny dical [address] [place] [address] 2020-11-10 2020-11-10 Outpatient Shaun KELLER [facility] [id number] Univers 09:45:00 09:45:00 KAYE [id number] [facility] 2020-11-10 2020-11-10 Outpatient Shaun KELLER [facility] [id number] Univers 09:45:00 09:45:00 KAYE [facility] 2020-10-31 2020-10-31 Telephone Jeison [facility] 12.840.114 [id number] Univers 00:00:00 00:00:00 Armin SPECIALTY 350.1.13.10 it[place] [id number] [place] kylah DONOHUE 198 [facility] 2020-10-20 2020-10-20 [facility] 1.2.840.114 [id number] Univers 10:05:41 13:50:58 Visit Armin SPECIALTY 350.1.13.10 [place] [id number] Ny kylah DONOHUE 198 [facility] 2020-10-20 2020-10-20 Outpatient R ARIANNA [facility] [id number] Univers 09:45:00 09:45:00 KAYE [id number] ity [facility] 2020-10-20 2020-10-20 [facility] [id number] Univers 09:45:00 09:45:00 KAYE ity [facility] 2020-10-13 2020-10-13 Outpatient R JEISON [facility] [id number] Univers 10:30:00 10:30:00 [facility] [id number] 2020-10-13 Outpatient R JEISON [facility] [id number] Univers 10:30:00 10:30:00 ARMIN ity [facility] 2020-09-29 2020-09-29 [facility] 1.2.840.114 [id number] Univers 10:03:46 23:59:00 Encounter Kaye PRIMARY 350.1.13.10 [place] [id number] [place] dical [address] [place] 2020-09-29 2020-09-29 [facility] 1.2.771.588 [id number] Univers 09:27:17 10:36:22 Visit Kaye PRIMARY 350.1.13.10 it[place] [id number] Ny dicmd [address] [place] 2020-09-29 2020-09-29 [facility] [id number] Univers 09:15:00 09:15:00 KAYE [id number] [facility] 2020-09-29 2020-09-29 Outpatient R ARIANNA, [facility] [id number] Univers 09:15:00 09:15:00 KAYE [facility] 2020-09-08 2020-09-08 Outpatient R [facility] [id number] Univers 14:00:00 14:00:00 [id number] [facility] 2020-08-11 2020-08-11 [employer] [facility] 1.2.840.114 [id number] Univers 14:45:44 15:00:44 Visit [facility] 350.1.13.10 ity of CL[place] [id number] [facility] [address] [place] 2020-08-11 2020-08-11 Office Nabila Collins 1.2.840.114 [id number] Univers 13:08:19 14:38:25 Visit [facility] 350.1.13.10 ity of CL[place]ICS [place] [id number] [facility] [address] [place] 2020-08-11 2020-08-11 Outpatient [facility] [id number] Univers 13:00:00 13:00:00 [id number] [facility] 2020-08-11 2020-08-11 Outpatient R [facility] [id number] Univers 13:00:00 13:00:00 [facility] 2020-08-11 2020-08-11 Orders Doctor MALISSA 1.2.840.114 [id number] Univers 00:00:00 00:00:00 Only Unassigned, FARHAN 350.1.13.10 ity of [facility] 4.2.7.2.686 Oemr as [id number] [address] Results Test Description Test Time Test Comments Results Result Comments Source POCT-GLUCOSE METER 2021-09-25 11:26:37 Test Item Value Reference Range Interpretation Comme nts POC-GLUCOSE METER (BESHASHI) 160 mg/dL 70-110 H : TESTED AT [facility] 8792 ANJEL (test code = 1538) ADONAY Mckeon, [address]2580: Internal Communications Manager/Techni lucy ID = [id number] for Tian Fletcher (CELLAVISION MANUAL DIFF)2021-09-25 08:29:01 [...] CONCENTRATION Adequate (CELLAVISION)(BEAKER) (test code = 3438) Internal Communications Manager ID - claudia Hoyt comments: Slide comments:CBC W/PLT COUNT & AUTO [id number] 08:29:00 Test Item Value Reference Range Interpretation [...] 0-0 (BEAKER) (test code = 413) POCT-GLUCOSE [id number] 08:03:44 Test Item Value Reference Range Interpretation Comments POC-GLUCOSE METER 155 mg/dL 70-110 H : TESTED A T [facility] 6720 (BEAKER) (test code = [facility], 1538) 04878: Internal Communications Manager/Techni lucy ID = [id number] for Marcelino Cabrera BASIC METABOLIC [id number] 06:46:41 Test Item Value Reference Range Interpretation [...] S NOT APPLICABLE FOR DIALYSIS PATIEN TS. Internal Communications Manager ID - ESTRADA MPOCT-GLUCOSE [id number] 17:47:29 Test Item Value Reference Range Interpretation Comments POC-GLUCOSE METER 160 mg/dL 70-110 H : TESTED A T [facility] 6720 (BEAKER) (test code = [facility] [place], 1538) 72326: Internal Communications Manager/Techni lucy ID = [id number] for Marcelino Cabrera POCT-GLUCOSE [id number] 11:07:55 Test Item Value Reference Range Interpretation Comments POC-GLUCOSE METER 185 mg/dL 70-110 H : TESTED A T [facility] 6720 (BEAKER) (test code = [facility] [place], 1538) 85679: Internal Communications Manager/Techni lucy ID = [id number] for Alisa Guadarrama POCT-GLUCOSE [id number] 07:59:08 Test Item Value Reference Range Interpretation Comments POC-GLUCOSE METER 202 mg/dL 70-110 H : TESTED A T [facility] 6720 (BEAKER) (test code = [facility] [place], 1538) 97642: Internal Communications Manager/Techni lucy ID = [id number] for Bl acsantana Marcelino (CELLAVISION MANUAL DIFF)2021-09-24 07:06:11 Test Item [...] CONCENTRATION Adequate (CELLAVISION)(BEAKER) (test code = 3438) Internal Communications Manager ID - Emily Torres comments: Slide comments:CBC W/PLT COUNT & AUTO [id number] 07:06:05 Test Item Value Reference Range Interpretation [...] (BEAKER) (test code = 413) BASIC METABOLIC [id number] 06:51:21 Test Item Value Reference Range Interpretation [...] S NOT APPLICABLE FOR DIALYSIS PATIEN TS. Internal Communications Manager ID - DEVIKA WBLOOD [id number] 06:01:11 Test Item Value Reference Range Interpretation Comments CULTURE (BEAKER) (test No growth in 5 days code = 1095) BLOOD [id number] 01:01:07 Test Item Value Reference Range Interpretation Comments CULTURE (BEAKER) (test No growth in 5 days code = 1095) POCT-GLUCOSE [id number] 21:28:29 Test Item Value Reference Range Interpretation Comments POC-GLUCOSE METER 187 mg/dL 70-110 H : TESTED A T [facility] 6720 (BEAKER) (test code = SH[place] URIAS [place], 1538) 17634: Internal Communications Manager/Techni lucy ID = [id number] for Steph Kumar BLOOD [id number] 20:00:49 Test Item Value Reference Range Interpretation Comments CULTURE (BEAKER) (test No growth in 5 days code = 1095) The specimen volume collected for this blood culture was below the optimum (10 mL per bottle or 20 mL total). Use of lower volumes may adversely affect recovery and/or detection times of some organisms.POCT-GLUCOSE [id number] 17:25:26 Test Item Value Reference Range Interpretation Comments POC-GLUCOSE METER 191 mg/dL 70-110 H : TESTED A T [facility] 6720 (BEAKER) (test code = [facility] [place], 1538) 49983: Internal Communications Manager/Techni lucy ID = [id number] for An Bina loja POCT-GLUCOSE [id number] 11:29:27 Test Item Value Reference Range Interpretation Comments POC-GLUCOSE METER 209 mg/dL 70-110 H : TESTED A T [facility] 6720 (BEAKER) (test code = [facility] [place], 1538) 27681: Internal Communications Manager/Techni lucy ID = [id number] for An Bina loja BASIC METABOLIC [id number] 06:30:06 Test Item Value Reference Range Interpretation [...] S NOT APPLICABLE FOR DIALYSIS PATIEN TS. Internal Communications Manager ID - ESTRADA MCBC W/PLT COUNT & AUTO [id number] 05:32:16 Test Item Value Reference Range Interpretation [...] PERCENT (BEAKER) (test code = 2801) POCT-GLUCOSE [id number] 21:11:15 Test Item Value Reference Range Interpretation Comments POC-GLUCOSE METER 179 mg/dL 70-110 H : TESTED A T [facility] 6720 (BEAKER) (test code = [facility] [place], 1538) 95706: Internal Communications Manager/Techni lucy ID = [id number] for Josephine Roberto POCT-GLUCOSE [id number] 17:05:43 Test Item Value Reference Range Interpretation Comments POC-GLUCOSE METER 152 mg/dL 70-110 H : TESTED A T [facility] 6720 (BEAKER) (test code = [facility] [place], 1538) 73783: Internal Communications Manager/Techni lucy ID = [id number] for ALFREDA DELEON POCT-GLUCOSE [id number] 15:29:50 Test Item Value Reference Range Interpretation Comments POC-GLUCOSE METER 177 mg/dL 70-110 H : TESTED A T [facility] 6720 (BEAKER) (test code = [facility] [place], 1538) 58178: Internal Communications Manager/Techni lucy ID = [id number] for RO PAULINA MONROYECA POCT-GLUCOSE [id number] 08:25:18 Test Item Value Reference Range Interpretation Comments POC-GLUCOSE METER 174 mg/dL 70-110 H : TESTED A T [facility] 6720 (BEAKER) (test code = [facility] [place], 1538) 12916: Internal Communications Manager/Techni lucy ID = [id number] for RO DGMARIZOL, PAULINAECA (CELLAVISION MANUAL DIFF)2021-09-22 [...] CONCENTRATION Adequate (CELLAVISION)(BEAKER) (test code = 3438) Internal Communications Manager ID - claudia Hoyt comments: Slide comments:CBC W/PLT COUNT & AUTO [id number] 07:24:32 Test Item Value Reference Range Interpretation [...] (BEAKER) (test code = 413) BASIC METABOLIC [id number] 05:28:03 Test Item Value Reference Range Interpretation [...] S NOT APPLICABLE FOR DIALYSIS PATIEN TS. Internal Communications Manager ID - ESTRADA MPOCT-GLUCOSE [id number] 21:57:41 Test Item Value Reference Range Interpretation Comments POC-GLUCOSE METER 192 mg/dL 70-110 H : TESTED Kathie T [facility] 6720 (BEAKER) (test code = [place], 1538) 43188: Internal Communications Manager/Techni lucy ID = [id number] for Josephine Roberto POCT-GLUCOSE [id number] 17:57:30 Test Item Value Reference Range Interpretation Comments POC-GLUCOSE METER 183 mg/dL 70-110 H : TESTED A T [facility] 6720 (BEAKER) (test code = SHILPA Dunn [place], 1538) 50423: Internal Communications Manager/Techni lucy ID = [id number] for JOSE BASSETT HEPATIC FUNCTION [id number] 16:01:45 Test Item Value Reference Range Interpretation [...] (test code = 11 U/L 6-55 347) Internal Communications Manager ID - ESTRADA MOperator ID - ESTRADA [id number] 15:56:05 Test Item Value Reference Range Interpretation Comments PHOSPHORUS (BEAKER) (test code = 3.5 mg/dL 2.3-4.7 604) Internal Communications Manager ID - ESTRADA MC-REACTIVE [id number] 15:56:05 Test Item Value Reference Range Interpretation Comments C-REACTIVE PROTEIN (BEAKER) (test 15.79 mg/dL 0.00-0.50 H code = 676) Internal Communications Manager ID - ESTRADA MBASIC METABOLIC [id number] 15:56:04 Test Item Value Reference Range Interpretation [...] S NOT APPLICABLE FOR DIALYSIS PATIEN TS. Internal Communications Manager ID - ESTRADA [id number] 15:56:04 Test Item Value Reference Range Interpretation Comments MAGNESIUM (BEAKER) (test code = 1.7 mg/dL 1.6-2.6 627) Internal Communications Manager ID - ESTRADA MCBC W/PLT COUNT & AUTO [id number] 14:57:10 Test Item Value Reference Range Interpretation [...] PERCENT (BEAKER) (test code = 2801) POCT-GLUCOSE [id number] 12:33:22 Test Item Value Reference Range Interpretation Comments POC-GLUCOSE METER 162 mg/dL 70-110 H : TESTED A T [facility] 6720 (BEAKER) (test code = [facility] [place], 1538) 72357: Internal Communications Manager/Techni lucy ID = [id number] for RO DGERS, JAMECA POCT-GLUCOSE [id number] 08:13:06 Test Item Value Reference Range Interpretation Comments POC-GLUCOSE METER 180 mg/dL 70-110 H : TESTED A T [facility] 6720 (BEAKER) (test code = [facility] [place], 1538) 67826: Internal Communications Manager/Techni lucy ID = [id number] for RO DGERS, JAMECA POCT-GLUCOSE [id number] 20:39:42 Test Item Value Reference Range Interpretation Comments POC-GLUCOSE METER 175 mg/dL 70-110 H : TESTED A T [facility] 6720 (BEAKER) (test code = [facility] [place], 1538) 38563: Internal Communications Manager/Techni lucy ID = [id number] for Steph Kumar POCT-GLUCOSE [id number] 17:10:08 Test Item Value Reference Range Interpretation Comments POC-GLUCOSE METER 188 mg/dL 70-110 H : TESTED A T [facility] 6720 (BEAKER) (test code = [facility] [place], 1538) 62260: Internal Communications Manager/Techni lucy ID = [id number] for OJ LEONOR, ARIAN POCT-GLUCOSE [id number] 11:49:26 Test Item Value Reference Range Interpretation Comments POC-GLUCOSE METER 180 mg/dL 70-110 H : TESTED A T [facility] 6720 (BEAKER) (test code = [facility] [place], 1538) 39033: Internal Communications Manager/Techni lucy ID = [id number] for OJ LEONOR, ARIAN POCT-GLUCOSE [id number] 17:09:11 Test Item Value Reference Range Interpretation Comments POC-GLUCOSE METER 174 mg/dL 70-110 H : TESTED A T [facility] 6720 (BEAKER) (test code = [facility] [place], 1538) 62103: Internal Communications Manager/Techni lucy ID = [id number] for An derson, Bina POCT-GLUCOSE [id number] 11:42:24 Test Item Value Reference Range Interpretation Comments POC-GLUCOSE METER 175 mg/dL 70-110 H : TESTED A T [facility] 6720 (BEAKER) (test code = [facility] [place], 1538) 51574: Internal Communications Manager/Techni lucy ID = [id number] for An derson, Bina MR, SPINE, LUMBAR, [id number] 10:43:00Unlisted Reason for Exam - Click Yes and Enter Reason Below->No [facility] 1970 Sex: MFINAL [...] narrowing at this level. Signed: Siddhartha Pineda MDReport Verified Date/Time: 09/19/2021 10:43:41 POCT-GLUCOSE [id number] 07:25:08 Test Item Value Reference Range Interpretation Comments POC-GLUCOSE METER 181 mg/dL 70-110 H : TESTED A T [facility] 6720 (BEAKER) (test code = [facility], 1538) 44991: Internal Communications Manager/Techni lucy ID = [id number] for An Bina loja C-REACTIVE [id number] 05:36:13 Test Item Value Reference Range Interpretation Comments C-REACTIVE PROTEIN (BEAKER) (test 15.70 mg/dL 0.00-0.50 H code = 676) Internal Communications Manager ID - ESTRADA MCOMPREHENSIVE METABOLIC [id number] 05:36:12 Test Item Value Reference Range Interpretation [...] S NOT APPLICABLE FOR DIALYSIS PATIEN TS. Internal Communications Manager ID - ESTRADA MSARS-COV2/RT-PCR ([facility])2021-09-19 01:23:23 Test Item Value Reference Range Interpretation Comments SARS-COV2/RT-PCR Negative Negative The SARS-Co V-2 target (test code = nucleic acids a re not [id number]) detected in thi s specimen. Negative result [...] revoked sooner. Fact Sheet for Healthcare Providers: https://www.[employer]/Documents/Xpert%20Xpress%20SARS%20CoV-2/Fact%20Sheets/3023802%20SARS-COV -2%20HEALTHCARE%20PROVIDERS%20FACT%20SHEET.pdf Fact Sheet for Healthcare Patients: https://www.[employer]/Documents/Xpert %20Xpress%20SARS%20CoV-2/Fact%20Sheets/3023801%54ZHYX-CPP-6%20PATIENT%20FACT%20 SHEET.pdfPOCT-GLUCOSE [id number] 22:10:31 Test Item Value Reference Range Interpretation Comments POC-GLUCOSE METER 176 mg/dL 70-110 H : TESTED A T [facility] 6720 (JESSICA) (test code = [place], 1538) 22404: Internal Communications Manager/Techni lucy ID = [id number] for Steph Kumar [id number] 19:54:47 Test Item Value Reference Range Interpretation Comments PHOSPHORUS (BEAKER) (test code = 2.8 mg/dL 2.3-4.7 604) Internal Communications Manager ID - DBBASIC METABOLIC [id number] 19:54:46 Test Item Value Reference Range Interpretation [...] S NOT APPLICABLE FOR DIALYSIS PATIEN TS. Internal Communications Manager ID - [id number] 19:54:46 Test Item Value Reference Range Interpretation Comments MAGNESIUM (BEAKER) (test code = 1.7 mg/dL 1.6-2.6 627) Internal Communications Manager ID - [id number] 19:51:43 Test Item Value Reference Range Interpretation Comments PARTIAL THROMBOPLASTIN TIME 38.0 seconds 22.5-36.0 H (BEAKER) (test code = 760) [id number] 19:51:43 Test Item Value Reference Range Interpretation [...] 2.5-3.5 for patients with mechanical heart valves.PROTHROMBIN TIME/[id number] 19:51:01 Test Item Value Reference Range Interpretation Comments PROTIME (BEAKER) 17.3 seconds 11.9-14.2 H (test code = 759) INR (BEAKER) (test 1.44 See_Comment [Automat ed message] code = 370) The system [employer] generated this result transmitted ref erence range: [...] PERCENT (BEAKER) (test code = 2801) POCT-GLUCOSE [id number] 17:15:12 Test Item Value Reference Range Interpretation Comments POC-GLUCOSE METER 147 mg/dL 70-110 H : TESTED A T [facility] 6720 (BEAKER) (test code = [facility], 1538) 11804: Internal Communications Manager/Techni lucy ID = [id number] for An Bina loja XR FOOT 3+ VW [id number] 20:59:26 1. ?Neuropathic right mid foot. RL: [...] fifth phalanx.IMPRESSION1. Neuropathic right mid foot.RL: [facility]
--- NOTE | 2022-01-04 12:35 | EDPHYS ---
Physician Documentation [facility] Name: Roverto Figueroa Age: 51 yrs Sex: Male : 1970 Arrival Date: 01/04/2022 Time: 11:43 Bed 18 Private MD: ED Physician Raffi Abreu HPI: 01/04 16:07 This 51 yrs old Male presents to ER via Wheelchair with complaints of Blood Clot. ms3 16:07 The patient presents with DVT. The complaints affect the left leg. Onset: The ms3 symptoms/episode began/occurred acutely, today. Modifying factors: The symptoms are alleviated by nothing. the symptoms are aggravated by nothing. Associated signs and symptoms: The patient has no apparent associated signs or symptoms. Treatment prior to arrival includes: no previous treatment. Received Call from Dr. Hays and patient with left femoral DVT that needs admission for anticoagulation. Dr. Hays of states sure radiology is concerned since venogram was recently performed that clot may propagate.. Historical: - Allergies: 16:09 No Known Allergies; beverly - Home Meds: 13:26 Hydralazine Oral [Active]; Metformin Oral [Active]; ph 16:09 hydrochlorothiazide 12.5 mg Oral tab 1 tab once daily [Active]; fluconazole 150 mg Oral beverly tab 1 tab [Active]; Regranex 0.01 % Topical gel once daily [Active]; lisinopril 40 mg Oral tab 1 tab once daily [Active]; sildenafil 100 mg oral tab 1 tab once daily [Active]; atorvastatin 40 mg oral tab 1 tab once daily [Active]; sulfamethoxazole-trimethoprim 400-80 mg Oral tab 2 tabs once daily [Active]; - PMHx: 13:26 Diabetes - NIDDM; Hypertension; ph - PSHx: 13:26 toe amputation; ph - Immunization history:: Adult Immunizations up to date. - Social history:: Smoking status: Patient denies any tobacco usage or history of. ROS: 16:07 Constitutional: Negative for fever, and chills. ENT: Negative for injury, pain, and ms3 discharge, Neck: Negative for injury, pain, and swelling, Cardiovascular: Negative for chest pain, and palpitations. Respiratory: Negative for shortness of breath, cough, wheezing, and pleuritic chest pain, Abdomen/GI: Negative for abdominal pain, nausea, vomiting, diarrhea, and constipation, MS/Extremity: Negative for injury and deformity, Skin: Negative for injury, rash, and discoloration, Neuro: Negative for headache, weakness, numbness, tingling. 16:07 All other systems are negative. Exam: 16:07 Constitutional: This is a well developed, well nourished patient who is awake, alert, ms3 and in no acute distress. Head/Face: Normocephalic, atraumatic. Neck: Trachea midline, no cervical lymphadenopathy. Supple, full range of motion without nuchal rigidity, or vertebral point tenderness. No Meningismus. Chest/axilla: Normal chest wall appearance and motion. Nontender with no deformity. Cardiovascular: Regular rate and rhythm with a normal S1 and S2. No gallops, murmurs, or rubs. Normal PMI, no JVD. No pulse deficits. Respiratory: Lungs have equal breath sounds bilaterally, clear to auscultation and percussion. No rales, rhonchi or wheezes noted. No increased work of breathing, no retractions or nasal flaring. Abdomen/GI: Soft, non-tender, with normal bowel sounds. No distension or tympany. No guarding or rebound. No evidence of tenderness throughout. Skin: Warm, dry with normal turgor. Normal color with no rashes, no lesions, and no evidence of cellulitis. 16:07 Musculoskeletal/extremity: Charcot right foot. LLE NTTP, no swelling. Vital Signs: 13:24 BP 153 / 85; Pulse 95; Resp 18; Temp 98.5; Pulse Ox 99% on R/A; Weight 117.93 kg; ph Height 6 ft. 0 in. (182.88 cm); 17:01 BP 154 / 88; Pulse 88; Resp 18; Pulse Ox 98% ; beverly 13:24 Body Mass Index 35.26 (117.93 kg, 182.88 cm) ph MDM: 12:34 Patient medically screened. ms3 16:07 Differential diagnosis: DVT. Data reviewed: vital signs, nurses notes, lab test ms3 result(s). ED course: Discussed case with GLADYS Arriaga, and he accepts patient on behalf of Dr Jamison. Discussed plan with patient and his and they understand/ agree with plan.. 01/04 11:43 Order name: CBC with Diff ms3 01/04 11:43 Order name: BMP ms3 01/04 13:40 Order name: Urinalysis EDMS 01/04 13:40 Order name: Basic Metabolic Panel EDMS 01/04 13:40 Order name: Basic Metabolic Panel EDMS 01/04 13:40 Order name: CBC with Automated Diff EDMS 01/04 13:40 Order name: Regular EDMS 01/04 13:40 Order name: CBC with Automated Diff EDMS 01/04 13:42 Order name: COVID-19 SARS RT PCR (Document "Date of Onset" if Symptomatic) bd 01/04 16:41 Order name: Urine Dipstick-Ancillary EDMS Administered Medications: No medications were administered Disposition Summary: 01/04/22 12:34 Hospitalization Ordered Hospitalization Status: Observation ms3 Provider: Mirian Jamison ms3 Location: Telemetry/MedSurg (observation) ms3 Condition: Stable ms3 Problem: new ms3 Symptoms: are unchanged ms3 Bed/Room Type: Standard ms3 Room Assignment: 205(01/04/22 16:47) Diagnosis - Femoral DVT ms3 Forms: - Medication Reconciliation Form ms3 - SBAR form ms3 Signatures: Dispatcher [employer] EDMS Rachel Burgos bd Abigail Sylvester RN RN Raffi Abreu DO DO ms3 Dyan Bowman RN RN beverly Corrections: (The following items were deleted from the chart) 16:19 13:26 Allergies: No Known Allergies; ph beverly 16:19 16:09 Allergies: Hydrochlorothiazide [Inactive]; beverly beverly 16:47 12:34 ms3 bd
[2022-01-04] MEDS ORDERED: HYDROCODONE/APAP 10/325 TAB PO PRN (13:34)
[2022-01-04] MEDS ORDERED: ACETAMINOPHEN 500 MG TAB PO PRN (13:35)
[2022-01-04] MEDS ORDERED: ONDANSETRON 4 MG/2 ML VIAL IV PRN (13:35)
--- NOTE | 2022-01-04 13:41 | P.HP ---
Certification for Inpatient Patient admitted to: Observation With expected LOS: <2 Midnights Patient will require the following post-hospital care: None Practitioner: I am a practitioner with admitting privileges, knowledge of patient current condition, hospital course, and medical plan of care. Services: Services provided to patient in accordance with Admission requirements found in Title 42 Section 412.3 of the Code of Federal Regulations Patient History Date of Service: 01/04/22 Reason for admission: DVT History of Present Illness: Patient is a 51-year-old male with a past medical history significant for DM2, hypertension, obesity, chronic pain syndrome, Charcot's foot, anemia, right foot wound, PVD who presents with complaint of DVT. Patient reported that he has been following up with his vascular surgeon in the last 2 years. Patient reported that his right foot wound is almost healed. Patient indicated that he had repair of his veins in the right leg and went back for evaluation of his left leg veins with his vascular surgeon today. An ultrasound done at the vascular surgeons office indicated a DVT. Patient was instructed to come to the ER. Patient reports chronic bilateral lower extremity swelling. Patient denies any other signs and symptoms. Symptoms are aggravated or relieved by nothing. Patient reported that he is not able to ambulate for long period of time because of his Charcot foot. Patient decided to present to the hospital as directed. Of note, patient reported that he has not been compliant with his El iquis. He reported that he is supposed to to take it twice a day but he has been taking it once a day When he remembers. Allergies No Known Allergies Allergy (Verified 05/07/20 08:35) Home medications list reviewed: Yes Home Medications: Dapagliflozin Propanediol [Farxiga] 5 mg PO DAILY 04/29/20 Lisinopril [Zestril] 20 mg PO DAILY 04/29/20 Cyclobenzaprine [Flexeril*] 10 mg PO BIDP PRN tab 09/18/21 Hydrocodone 7.5/APAP 325 [Lucama 7.5/325 mg*] 1 tab PO Q6H PRN tab 09/18/21 Hydromorphone [Dilaudid*] 1 mg IV Q4H PRN ml 09/18/21 Insulin -Regular Human [Novolin -R*] See Protocol SQ ACHS ml 09/18/21 Lidocaine 4% Patch [Lidoderm 5% Patch*] 1 patch TOP DAILY patch 09/18/21 chlordiazePOXIDE HCl [Librium*] 10 mg PO TID PRN cap 09/18/21 - Past Medical/Surgical History Diabetic: Yes -: Hypertension -: Diabetes -: Amputation of right toe 2016 -: Femoral Stent - Family History Father -: Cancer - Social History Smoking Status: Never smoker Alcohol use: Yes CD- Drugs: No Caffeine use: Yes Review of Systems General: Unremarkable Eyes: Unremarkable ENT: Unremarkable Respiratory: Unremarkable Cardiovascular: Unremarkable Gastrointestinal: Unremarkable Genitourinary: Unremarkable Musculoskeletal: Pedal edema Integumentary: Unremarkable Neurological: Unremarkable Lymphatics: Unremarkable Physical Examination - Physical Exam General: Alert, In no apparent distress, Oriented x3, Cooperative HEENT: Normocephalic, PERRLA Neck: Supple, 2+ carotid pulse no bruit, JVD not distended Respiratory: Clear to auscultation bilaterally, Normal air movement Cardiovascular: Normal pulses, Regular rate/rhythm, Normal S1 S2 Capillary refill: <2 Seconds Gastrointestinal: Normal bowel sounds, Soft and benign Musculoskeletal: Swelling, Tenderness, Other (Right Charcot's foot) Integumentary: No rashes, No significant lesion, No erythema Neurological: Normal gait, Normal speech, Normal strength at 5/5 x4 extr Lymphatics: No axilla or inguinal lymphadenopathy Assessment and Plan - Plan --DVT. Patient had an ultrasound done at his vascular surgeon's office. Noted to have DVT in the left femoral vein. Patient placed on weight-based Lovenox subQ. Continue supportive care. --DM2 with hyperglycemia. BS monitoring with sliding scale insulin. --Hypertension. Stable. Continue home medications and hydralazine as needed. --Chronic pain syndrome. Continue home medication. --History of Charcot's foot with right foot wound. Patient reported that wound is almost healed. Patient follows with outpatient vascular surgeon. Continue supportive care. --Anemia. H&H stable. We will continue to monitor hemoglobin. --History of PVD. Status post right femoral stent. Continue Lovenox subQ -- Class I obesity. Likely secondary to excess calories intake. Patient counseled on weight reduction, diet and exercise therapy. --UTI POA. Patient placed on antibiotics. --Chronic bilateral lower extremity swelling. Patient follow-up with an outpatient vascular surgeon. Patient reported that he was referred to a lymphedema clinic for lymphedema evaluation. Continue supportive care. --DVT prophylaxis with Lovenox subQ -- Discharge Plan: Home Plan to discharge in: 48 Hours - Advance Directives Does patient have a Living Will: No Does patient have a Durable POA for Healthcare: No - Code Status/Comfort Care Code Status Assessed: Yes Code Status: Full Code Physician Review: Patient Assessed, Agree with Above Assessment and Plan Critical Care: No
[2022-01-04 14:17] LABS: Absolute Lymphocytes (CBC) 1.9 K/uL (0.7-4.9); Hematocrit 44.7 % (39.6-49.0); Lymphocytes % 19.2 % (15.3-44.8); MPV 7.3 fL (7.6-11.3)
[2022-01-04 14:31] LABS: BUN Blood Urea Nitrogen 11 mg/dL (7-18); Bicarbonate 24 mmol/L (21-32); Glucose Level 259 mg/dL (74-106); Potassium 4.1 mmol/L (3.5-5.1); Sodium Level 137 mmol/L (136-145)
[2022-01-04 16:35] VITALS: BMI 35.1
[2022-01-04 16:41] LABS: Urine Blood 2+ (Negative); Urine Glucose 2+ (Negative); Urine Protein 2+ (Negative); Urine Specific Gravity >=1.030 (1.005-1.030); Urine pH 5.5 (5.0-7.0)
[2022-01-04] MEDS ORDERED: GLUCAGON 1 MG/VIAL IM PRN (17:17)
[2022-01-04] MEDS ORDERED: D10W 250 ML BAG IV PRN (17:29)
--- NOTE | 2022-01-04 17:51 | ER ---
Nurse's Notes [facility] Name: Roverto Figueroa Age: 51 yrs Sex: Male : 1970 Arrival Date: 01/04/2022 Time: 11:43 Bed 18 [facility] MD: Diagnosis: Femoral DVT Presentation: 01/04 13:24 Chief complaint: Patient states: Currently being evaluated outpatient for poor ph circulation in both legs, had US today of L leg and blood clot was found. Pt denies pain or SOB at this time. Coronavirus screen: Vaccine status: Patient reports receiving the 2nd dose of the covid vaccine. Ebola Screen: No symptoms or risks identified at this time. Initial Sepsis Screen: Does the patient meet any 2 criteria? No. Patient's initial sepsis screen is negative. Does the patient have a suspected source of infection? No. Patient's initial sepsis screen is negative. Risk Assessment: Do you want to hurt yourself or someone else? Patient reports no desire to harm self or others. Onset of symptoms was January 04, 2022. 13:24 Method Of Arrival: Wheelchair 13:24 Acuity: KAMRYN 3 ph Triage Assessment: 17:01 General: Appears in no apparent distress. beverly Historical: - Allergies: 16:09 No Known Allergies; beverly - Home Meds: 13:26 Hydralazine Oral [Active]; Metformin Oral [Active]; ph 16:09 hydrochlorothiazide 12.5 mg Oral tab 1 tab once daily [Active]; fluconazole 150 mg Oral beverly tab 1 tab [Active]; Regranex 0.01 % Topical gel once daily [Active]; lisinopril 40 mg Oral tab 1 tab once daily [Active]; sildenafil 100 mg oral tab 1 tab once daily [Active]; atorvastatin 40 mg oral tab 1 tab once daily [Active]; sulfamethoxazole-trimethoprim 400-80 mg Oral tab 2 tabs once daily [Active]; - PMHx: 13:26 Diabetes - NIDDM; Hypertension; ph - PSHx: 13:26 toe amputation; ph - Immunization history:: Adult Immunizations up to date. - Social history:: Smoking status: Patient denies any tobacco usage or history of. Screenin:09 Abuse screen: Denies threats or abuse. Denies injuries from another. Nutritional beverly screening: No deficits noted. Tuberculosis screening: No symptoms or risk factors identified. Fall Risk None identified. Assessment: 16:02 General: Appears in no apparent distress. Behavior is agitated, uncooperative. Pain: beverly Complains of pain in right leg and left leg. Derm: Skin is red. Musculoskeletal: Reports pain in right leg and left leg. Vital Signs: 13:24 BP 153 / 85; Pulse 95; Resp 18; Temp 98.5; Pulse Ox 99% on R/A; Weight 117.93 kg; ph Height 6 ft. 0 in. (182.88 cm); 17:01 BP 154 / 88; Pulse 88; Resp 18; Pulse Ox 98% ; beverly 13:24 Body Mass Index 35.26 (117.93 kg, 182.88 cm) ph ED Course: 11:43 Patient arrived in ED. mr 11:43 Raffi Abreu DO is Attending Physician. ms3 12:33 Mirian Jamison MD is Hospitalizing Provider. ms3 13:26 Triage completed. ph 13:27 Arm band placed on Patient placed in waiting room, Patient notified of wait time. ph 14:22 Abigail Sylvester, RN is Primary Nurse. ph 16:09 Patient has correct armband on for positive identification. Bed in low position. beverly 16:20 No provider procedures requiring assistance completed. beverly 17:01 Inserted saline lock: 20 gauge in left antecubital area, using aseptic technique. beverly 17:50 Patient admitted, IV remains in place. beverly Administered Medications: No medications were administered Outcome: 12:34 Decision to Hospitalize by Provider. ms3 17:49 Admitted to [facility] beverly 17:49 Condition: good 17:49 Instructed on the need for admit. 17:50 Patient left the ED. beverly Signatures: Marissa Branch mr Abigail Sylvester RN RN Raffi Abreu DO DO ms3 Dyan Bowman RN RN beverly Corrections: (The following items were deleted from the chart) 16:19 13:26 Allergies: No Known Allergies; ph beverly 16:19 16:09 Allergies: Hydrochlorothiazide [Inactive]; beverly beverly
[2022-01-04] MEDS: CEFTRIAXONE 1,000 MG in NA CHLORIDE 0.9% 50 ML IVPB SCH (18:04)
[2022-01-04] MEDS: HYDRALAZINE HCL 20 MG/ML VIAL IV PRN (18:09)
[2022-01-04] MEDS ORDERED: DIAZEPAM 5 MG TABLET PO ONE (20:25)
[2022-01-04 20:42] VITALS: O2SAT 98
[2022-01-04] MEDS: INSULIN -REGULAR HUMAN 50 UNIT/0.5 ML ML SQ SCH (21:00)
[2022-01-04] MEDS: Enoxaparin 120 MG/0.8 ML SYR SQ SCH (22:00)
[2022-01-05 05:51] LABS: Absolute Lymphocytes (CBC) 2.1 K/uL (0.7-4.9); Hematocrit 40.3 % (39.6-49.0); Lymphocytes % 18.1 % (15.3-44.8); MPV 7.3 fL (7.6-11.3); RBC Red Blood Cell Count 3.86 M/uL (4.33-5.43)
[2022-01-05 05:56] LABS: BUN Blood Urea Nitrogen 12 mg/dL (7-18); Bicarbonate 24 mmol/L (21-32); Glucose Level 254 mg/dL (74-106); Potassium 3.5 mmol/L (3.5-5.1); Sodium Level 135 mmol/L (136-145)
[2022-01-05 08:06] VITALS: BP 193/95; TEMP 97.6
[2022-01-05] MEDS: Enoxaparin 120 MG/0.8 ML SYR SQ SCH (08:25)
[2022-01-05] MEDS: CEFTRIAXONE 1,000 MG in NA CHLORIDE 0.9% 50 ML IVPB SCH (08:26)
[2022-01-05] MEDS: INSULIN -REGULAR HUMAN 50 UNIT/0.5 ML ML SQ SCH ×2 (08:26→11:25)
[2022-01-05] MEDS: HYDRALAZINE HCL 20 MG/ML VIAL IV PRN (08:27)
[2022-01-05] MEDS ORDERED: POTASSIUM CL SA 10 MEQ TAB PO ONE (09:00)
== END 2022-01-05 13:00 | disposition home or self-care (01) ==
LOC: ER 11:40 → ERHOLD 13:57 → 2ND 17:26
PROVIDERS: ADMIT Hospitalist; ATTEND Hospitalist
DX: I82.412 Acute embolism and thrombosis of left femoral vein (principal); E11.65 Type 2 diabetes mellitus with hyperglycemia; E11.610 Type 2 diabetes mellitus with diabetic neuropathic arthropathy; N39.0 Urinary tract infection, site not specified; I10 Essential (primary) hypertension; D64.9 Anemia, unspecified; G89.4 Chronic pain syndrome; S91.301A Unspecified open wound, right foot, initial encounter; I73.9 Peripheral vascular disease, unspecified; M79.89 Other specified soft tissue disorders; E66.9 Obesity, unspecified; Z68.35 Body mass index [BMI] 35.0-35.9, adult; Z71.3 Dietary counseling and surveillance; Z20.822 Contact with and (suspected) exposure to COVID-19; Z91.14 Patient's other noncompliance with medication regimen; Z79.4 Long term (current) use of insulin; Z79.899 Other long term (current) drug therapy; Z95.820 Peripheral vascular angioplasty status with implants and grafts; Z89.421 Acquired absence of other right toe(s); Z80.9 Family history of malignant neoplasm, unspecified
CPT/HCPCS: 85025 ×2; 80048 ×2; 36415; 82947 ×4; 81003; 99285; U0003; J0360 ×2; J1815; J1650 ×2; J2405; G0378 ×3

== ENCOUNTER 2023-01-19 05:50 | Day surgery (SDC) | payer BC ==
[2023-01-18 12:16] LABS: Potassium 3.2 mEq/L (3.5-5.1)
--- NOTE | 2023-01-18 16:05 | EKG ---
Test Date: 2023-01-18 Test Time: 11:34:02 Road Gang Supervisor: ZOË MEASUREMENT RESULTS: Intervals: Rate: 95 AK: 138 QRSD: 118 QT: 414 QTc: 520 [place]: P: 36 AK: 138 QRS: -9 T: 30 INTERPRETIVE STATEMENTS: Sinus rhythm with fusion complexes Low voltage QRS Incomplete right bundle branch block Electronically Signed On 01-18-23 16:04:33 CDT by Wellington Marcelo
[2023-01-19] MEDS ORDERED: NA CHLORIDE 0.9% 1,000 ML ONE (06:16)
[2023-01-19] MEDS ORDERED: LIDOCAINE 1% MPF 5 ML VIAL ONE (06:35)
[2023-01-19] MEDS ORDERED: FENTANYL CITR 100 MCG/2 ML ONE (06:36)
[2023-01-19] MEDS ORDERED: MIDAZOLAM HCL 2 MG/2 ML INJ ONE ×2 (06:36→08:09)
[2023-01-19] MEDS ORDERED: dexAMETHasone 4 MG/ML VIAL ONE (06:36)
[2023-01-19] MEDS ORDERED: ROPIVACAINE HCL 40 ML ONE (06:37)
[2023-01-19] MEDS ORDERED: BUPIVACAINE 0.25% PF 10 ML VIAL ONE (07:18)
[2023-01-19] MEDS ORDERED: LIDOCAINE 1% W/EPI 1:100,000 10 ML VIAL ONE (07:20)
[2023-01-19] MEDS ORDERED: ONDANSETRON 4 MG/2 ML VIAL ONE (07:30)
[2023-01-19] MEDS: LIDOCAINE 1% W/EPI 1:100,000 10 ML VIAL ONE ×2 (07:47→08:18)
[2023-01-19] MEDS: CEFAZOLIN SODIUM 2 GM/VIAL ONE ×2 (07:47→07:51)
[2023-01-19] MEDS ORDERED: propofoL 200 MG/20 ML VIAL IV ONE (08:09)
--- NOTE | 2023-01-19 08:34 | P.OP ---
Preoperative diagnosis: RIGHT Lateral Ankle Infected Abscess Postoperative diagnosis: RIGHT Lateral Ankle Infected Abscess Primary procedure: Incision and Drainage of RIGHT Lateral Ankle Infected Abscess Anesthesia: Block + Local Estimated blood loss: < 10 cc Specimen: cultures sent Findings: ~ 4cm x 3cm x 3 cm abscess of RIGHT lateral ankle Complications: None Transferred to: Recovery Room Condition: Good
--- NOTE | 2023-01-19 08:51 | OP ---
Date of Procedure: 01/19/2023 Surgeon: Franklyn Hays MD, Preoperative Diagnosis: Right lateral ankle infected abscess. Postoperative Diagnosis: Right lateral ankle infected abscess. Procedure Performed: Incision, drainage, and debridement of right lateral ankle infected abscess. Anesthesia: Block plus local with 1% lidocaine with epinephrine. Estimated Blood Loss: Less than 10 cc. Specimen: Culture sent for both aerobic and anaerobic speciation. Findings: Approximately 4 cm x 3 cm x 3 cm abscess of the right lateral ankle. Complications: None. Disposition: The patient was transferred to the recovery room in good condition. Procedure In Detail: After informed consent was obtained, the patient was brought to the operating r oom, prepped and draped in the usual sterile fashion after adequate anesthesia was achieved. There w as an area on the lateral right ankle that was draining spontaneously through a small hole. I made a n elliptical incision around this area and then palpated the cavity, which was found to be approximat esperanza 4 cm x 3 cm. I then unroofed this area of tissue and sent this off for pathologic examination as debridement tissue. After this was completed, I palpated an area of the abscess cavity, which exten ded inferiorly for approximately 1.5 to 2 cm. I just elongated in a T-type orientation off the ellip se to unroof and open this area. Additional multiloculated abscess was encountered at this point. T his was all digitized until completely clear. I then irrigated the area copiously. I achieved hemos tasis with electrocautery and then packed the wound with Vashe-soaked Kerlix and a sterile dressing p laced over top. The patient tolerated the procedure well without evidence of complication and transf erred to PACU in good condition. All counts were correct at the end of the case. TK/MODL Voice ID: [id number] Report ID: [id number]
[2023-01-19 09:40] VITALS: TEMP 98.4
[2023-01-19 09:42] VITALS: BP 128/56; O2SAT 99
--- NOTE | 2023-01-20 07:52 | EKG ---
Test Date: 2023-01-18 Test Time: 11:35:55 Hazardous Materials Analyst: ZOË MEASUREMENT RESULTS: Intervals: Rate: 94 MT: 146 QRSD: 100 QT: 414 QTc: 517 [place]: P: 21 MT: 146 QRS: -40 T: 28 INTERPRETIVE STATEMENTS: Sinus rhythm with fusion complexes Left axis deviation Low voltage QRS Cannot rule out Anterior infarct, age undetermined Inferior injury pattern Prolonged QT ACUTE ME Abnormal ECG Compared to ECG 01/18/2023 11:34:02 Left-axis deviation now present Myocardial infarct finding now present Prolonged QT interval now present Incomplete right bundle-branch block no longer present Electronically Signed On 01-20-23 07:49:46 CDT by Wellington Marcelo
--- NOTE | 2023-01-20 11:03 | EKG ---
Test Date: 2023-01-19 Test Time: 09:10:37 President: CATHY MEASUREMENT RESULTS: Intervals: Rate: 83 VT: 144 QRSD: 130 QT: 446 QTc: 524 [place]: P: 51 VT: 144 QRS: 7 T: 73 INTERPRETIVE STATEMENTS: Normal sinus rhythm Right bundle branch block T wave abnormality, consider lateral ischemia Abnormal ECG Compared to ECG 01/19/2023 09:09:52 No significant changes Electronically Signed On 01-20-23 11:01:40 CDT by Wellington Marcelo
--- NOTE | 2023-01-20 11:03 | EKG ---
Test Date: 2023-01-19 Test Time: 09:09:52 Radio Survey Worker: CATHY MEASUREMENT RESULTS: Intervals: Rate: 79 AK: 142 QRSD: 128 QT: 446 QTc: 511 [place]: P: 45 AK: 142 QRS: 2 T: 71 INTERPRETIVE STATEMENTS: Normal sinus rhythm Right bundle branch block T wave abnormality, consider lateral ischemia Abnormal ECG Compared to ECG 01/18/2023 11:35:55 Right bundle-branch block now present T-wave abnormality now present Possible ischemia now present Fusion complex(es) no longer present Left-axis deviation no longer present Myocardial infarct finding no longer present Prolonged QT interval no longer present Electronically Signed On 01-20-23 11:01:40 CDT by Wellington Marcelo
== END 2023-01-19 09:30 | disposition home or self-care (01) ==
LOC: OR 05:50
PROVIDERS: ATTEND Surgery
PROC: 0HDMXZZ Extraction of Right Foot Skin, External Approach (ICD-10-PCS; 2023-01-19)
PROC: 0H9MXZZ Drainage of Right Foot Skin, External Approach (ICD-10-PCS; principal; 2023-01-19 07:30)
DX: L02.415 Cutaneous abscess of right lower limb (principal); L08.9 Local infection of the skin and subcutaneous tissue, unspecified; I10 Essential (primary) hypertension; E11.9 Type 2 diabetes mellitus without complications; E66.9 Obesity, unspecified; E87.1 Hypo-osmolality and hyponatremia; E87.6 Hypokalemia
CPT/HCPCS: 10060; 11000; 93005 ×2; 87070; 80048; 36415; 87205 ×2; 82947; 88304; 87075; J2704; J1100; J2001; J2250 ×2; J3010; J2405; J7030

== ENCOUNTER 2023-03-28 18:59 | Inpatient (IN) | payer BC ==
--- OUTSIDE RECORDS SUMMARY | 2023-03-28 19:06 | XMS REPORT | Continuity of Care Document ---
:1970 Author Organization [facility] t Address [address] [place] [address] [address] [place] [address] Care Team Providers Name Role Phone Arnaud Mckeon MD Primary Care Physician MARY SWANN Attending Clinician Unavailable ABBEY LARA Attending Clinician Unavailable GERARDO MCCALL Attending Clinician Unavailable JAMIE GILMAN Attending Clinician Unavailable LAB90 Attending Clinician Unavailable SABRINA DOWNS Attending Clinician Unavailable PROVIDER, VIDEOVISITNOAlice Attending Clinician Unavailable Corrie Jones MD Attending Clinician [phone] CORRIE JONES Attending Clinician Unavailable MD LAMBERT Attending Clinician Unavailable MAGALIS ERNANDEZ Attending Clinician Unavailable TEETEE HUBBARD Attending Clinician Unavailable LAB39 Attending Clinician Unavailable [id number] Attending Clinician Unavailable Mary Mcdonough Attending Clinician DOLLY TIERNEY Attending Clinician Unavailable EMILY WHITEHEAD Attending Clinician Unavailable MARITZA LEWIS Attending Clinician Unavailable [id number] Attending Clinician Unavailable ROSALBA FERMIN Attending Clinician Unavailable Lars Saavedra DO Attending Clinician KAYE KELLER Attending Clinician Unavailable Armin Mchugh MD Attending Clinician ARMIN MCHUGH Attending Clinician Unavailable Ogunlana DPM, Kaye A Attending Clinician [phone] [facility] Attending Clinician Unavailable Grace December Attending Clinician Nabila Collins MD Attending Clinician Doctor Unassigned, Jim Thorpe Attending Clinician Unavailable FELICIA MORENO Admitting Clinician Unavailable Payers Payer Name Policy Type Policy Number Effective Date Expiration Date S ource BCBS 2 [id number] 2020 00:00:00 BCBS PPO POS EPO [id number] 2017 00:00:00 CHOICE Problems Condition Condition Condition Status Onset Resolution Last Treating Co mments Source Name Details Category Date Date Treatment Clinician Date Charcot's Charcot's Disease Active Shaun sey arthropath arthropath 1-24 Se ybold y y 00:00: - associated associated 00 Ex terna with type with type l 2 diabetes 2 diabetes mellitus mellitus Chronic Chronic Disease Active Sandra infection infection 2- Seyb old 00:00: - 00 Externa l Foot ulcer Foot ulcer Disease Recurre [facility] secondary 00:[facility]: [facility] nancy DM DM 00 Center Anemia Anemia Disease Active [facility] 00 [place] HTN HTN Disease Active [facility] (hypertens (hypertens 1- Bebe kes ion) ion) 00:00: Medical 00 [place] HLD HLD Disease Active [facility] (hyperlipi (hyperlipi 1- Bebe kes demia) demia) 00:00: Medical 00 [place] MSSA MSSA Disease Active [facility] bacteremia bacteremia 1- Bebe kes 00:00: Medical 00 [place] Diabetes Diabetes Disease Recurre 2020-[address] [facility] nce [facility] Center Diabetic Diabetic Disease Recurre 2020-[address] [facility] [address] Charcot Charcot nce 2- [facility] foot foot 00:00: Medical 00 [place] Spondylodi Spondylodi Disease Active 2020-[address] scitis scitis 2 [facility] Epidural Epidural Disease [facility] 2020[facility] abscess [facility] 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 5-27 Seyb old diabetes diabetes 00:00: - mellitus 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 hyperglyce will will DM type 2 DM type 2 Disease Active Shaun sey with with 5-27 Seybold diabetic diabetic 00:00: - dyslipidem dyslipidem 00 Ex terna ia ia l 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 5-27 Se ybold y y 00:00: - associated associated 00 Ex terna with type with type l 2 diabetes 2 diabetes mellitus mellitus Essential Essential Disease Active Shaun sey hypertensi hypertensi 4-08 Se ybold on on 00:00: - 00 Externa l Vascular Vascular Disease Active Kelse y disease disease 4-08 Seybold 00:00: - 00 Externa l Type 2 Type 2 Disease Active Sandra diabetes diabetes 4-08 Seybol d mellitus, mellitus, 00:00: - without without 00 Externa long-term long-term l current current use of use of insulin insulin Diabetic Diabetic Disease Active Kelse y ulcer of ulcer of 4-08 Seybol d right right 00:00: - midfoot midfoot 00 Externa associated associated l with type with type 2 diabetes 2 diabetes mellitus, mellitus, limited to limited to breakdown breakdown of skin of skin 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[facility] bottom bottom 2-01 ity of foot foot 00:00: [place] deformity deformity 00 [facility] Diabetic Diabetic Disease Active Unive [...] foot, 3-06 ity of right right 00:00: [address] Essential Essential Disease Active 2014-09 Uni vers hypertensi hypertensi 0-06 it y of on on 00:00: [address] Erectile Erectile Disease Active 2014-09 Unive rs [...] Active Univers ALLERGIE Class ity of S [facility] NO KNOWN Allergy Active [facility] Family History Family Member Diagnosis Comments Start Date Stop Date Source Natural brother Alcohol abuse [facility] Natural father Cancer [facility] Social History Social Habit Start Date Stop Date Quantity Comments Source Exposure to Not sure University of SARS-CoV-2 (event) [facility] History of tobacco Current smoker [facility] use [facility] Tobacco use and 2021-11-03 2021-11-03 Smokeless Sandra ybold - exposure 00:00:00 00:00:00 tobacco non-user External Cigarettes smoked 2021-09-18 2021-09-18 GEORGE Reddy Bebelandry current (pack per 00:00:00 00:00:00 [facility] day) - Reported Cigarette 2021-09-18 2021-09-18 GEORGE [place] pack-years 00:00:00 00:00:00 [facility] Alcohol intake 2021-09-18 2021-09-18 Current drinker [facility]00 of [facility] (finding) Alcohol Comment 2017-06-13 2017-06-13 4-6 beers a day Univ ersity of 00:00:00 00:00:00 [facility] Sex [birth year] At [birth year] GEORGE [place] 00:00:00 00:00:00 [facility] Smoking Status Start Date Stop Date Source Ex-smoker 2021-11-03 00:00:00 2021-11-03 00:00:00 Sandra tony - External Medications Ordered Filled Start Stop Current Ordering Indication Dosage Frequency Signature Comments Components Source Medication Medication Date Date Medication? Clinician (SIG) Name Name Ondansetron Yes [id number] 8mg Q.[id number] Take 2 Sandra (ZOFRAN) 4 3-27 [id number] tablets (8 Seybold MG oral 00:00: 3D mg total) - TABLET 00 by mouth Externa DISPERSIBLE every 8 l hours as needed for nausea Pantoprazol 2022-0 Yes [id number] 40mg Take 1 Sandra e Sodium 40 3-27 tablet (40 Se ybold MG oral 00:00: mg total) - Tablet 00 by mouth Externa Delayed daily l Response Amoxicillin 2022-0 Yes [id number] 1{tbl} Take 1 Sandra -Pot 3-21 tablet by Seybold Clavulanate 00:00: mouth 2 - 875-125 MG 00 times Externa oral Tablet daily l Amoxicillin 2022-0 2022- No [id number] 1{tbl} Take 1 Sandra -Pot 3-21 03-27 tablet by Seybold Clavulanate 00:00: 00:00 mouth 2 - 875-125 MG 00 :00 times Externa oral Tablet daily l Omeprazole 2022-0 Yes [id number] 20mg Take 1 Sandra 20 MG oral 3-10 capsule Seybol d Delayed 00:00: (20 mg - Release 00 total) by Externa Capsule mouth l daily Ondansetron 2022-0 Yes [id number] 4mg Q.[id number] Take 1 Sandra (ZOFRAN) 4 3-10 [id number] tablet (4 Seybold MG oral 00:00: 3D mg total) - TABLET 00 by mouth Externa DISPERSIBLE every 8 l hours as needed for nausea Doxycycline 2022-0 Yes [id number] 100mg Take 1 Sandra Hyclate 100 3-10 tablet Seybol d MG oral 00:00: (100 mg - Tablet 00 total) by Externa mouth 2 l times daily Omeprazole 2022-0 2022- No [id number] 20mg Take 1 Sandra 20 MG oral 3-10 03-27 capsule Seybo ld Delayed 00:00: 00:00 (20 mg - Release 00 :00 total) by Externa Capsule mouth l daily Ondansetron 2022-0 2022- No [id number] 4mg Q.[id number] Take 1 Sandra (ZOFRAN) 4 11-26 [id number] tablet (4 Seybold MG oral 00:00: 00:00 3D mg total) - TABLET 00 :00 by mouth Externa DISPERSIBLE every 8 l hours as needed for nausea Doxycycline 2022- No [id number] 100mg Take 1 Sandra Hyclate 100 11-26 tablet Seybo ld MG oral 00:00: 00:00 (100 mg - Tablet 00 :00 total) by Externa mouth 2 l times daily TRIMETHOPRI 2022- No [id number] 1{tbl} Take 1 Sandra M-SULFAMETH 11-17 tablet by Se ybold OXAZOLE 00:00: 00:00 mouth 2 - (BACTRIM 00 :00 times Externa DS) 800-160 daily for l MG oral 7 days Tablet TRIMETHOPRI 2022- No [id number] 1{tbl} Take 1 Sandra M-SULFAMETH 11-17 tablet by Se ybold OXAZOLE 00:00: 05:59 mouth 2 - (BACTRIM 00 :00 times Externa DS) 800-160 daily for l MG oral 7 days Tablet [place]-3 Yes [id number] TAKE 2 Shaun sey Fatty Acids 2-21 CAPSULES Seyb old (GNP Fish 00:00: BY MOUTH - Oil) 1000 00 TWICE Externa MG oral DAILY l Capsule [place]-3 Yes [id number] TAKE 2 Shaun sey Fatty Acids 2-21 CAPSULES Seyb old (GNP Fish 00:00: BY MOUTH - Oil) 1000 00 TWICE Externa MG oral DAILY l Capsule [place]-3 0 Yes [id number] TAKE 2 Shaun sey Fatty Acids 2-21 CAPSULES Seyb old (GNP Fish 00:00: BY MOUTH - Oil) 1000 00 TWICE Externa MG oral DAILY l Capsule Tirzepatide Yes [id number] 5mg Inject 0.5 Sandra (Mounjaro) 2-20 mL (5 mg Seybo ld 5 MG/0.5ML 00:00: total) - subcutaneou 00 into the Exte rna s Solution skin once l Pen-injecto a week r Apixaban 2023-0 Yes [id number] 2.5mg Take 1 Ke lsey (Eliquis) 2-20 tablet Seybold 2.5 MG oral 00:00: (2.5 mg - Tablet 00 total) by Externa mouth 2 l times daily Lisinopril 2022-0 Yes [id number] 20mg Take 1 K elsey 20 MG oral 2-20 tablet (20 Sey bold Tablet 00:00: mg total) - 00 by mouth Externa daily l hydroCHLORO 2022-0 Yes [id number] 25mg Take 1 Sandra thiazide 25 2-20 tablet (25 Se ybold MG oral 00:00: mg total) - Tablet 00 by mouth Externa daily l [place]-3 2022-0 Yes [id number] 2000mg Take 2 K elsey Fatty Acids 2-20 capsules Seyb old 1000 MG 00:00: (2,000 mg - oral 00 total) by Externa Capsule mouth 2 l times daily Omeprazole 2022-0 Yes [id number] 20mg Take 1 Sandra 20 MG oral 2-20 capsule Seybol d Delayed 00:00: (20 mg - Release 00 total) by Externa Capsule mouth l daily Tirzepatide 2022-0 Yes [id number] 5mg Inject 0.5 Sandra (Mounjaro) 2-20 mL (5 mg Seybo ld 5 MG/0.5ML 00:00: total) - subcutaneou 00 into the Exte rna s Solution skin once l Pen-injecto a week r Apixaban 2022-0 Yes [id number] 2.5mg Take 1 Ke lsey (Eliquis) 2-20 tablet Seybold 2.5 MG oral 00:00: (2.5 mg - Tablet 00 total) by Externa mouth 2 l times daily Lisinopril 2022-0 Yes [id number] 20mg Take 1 K elsey 20 MG oral 2-20 tablet (20 Sey bold Tablet 00:00: mg total) - 00 by mouth Externa daily l hydroCHLORO 2022-0 Yes [id number] 25mg Take 1 Sandra thiazide 25 2-20 tablet (25 Se ybold MG oral 00:00: mg total) - Tablet 00 by mouth Externa daily l Omeprazole 3-0 Yes [id number] 20mg Take 1 Sandra 20 MG oral 2-20 capsule Seybol d Delayed 00:00: (20 mg - Release 00 total) by Externa Capsule mouth l daily Tirzepatide 2022-0 Yes [id number] 5mg Inject 0.5 Sandra (Mounjaro) 2-20 mL (5 mg Seybo ld 5 MG/0.5ML 00:00: total) - subcutaneou 00 into the Exte rna s Solution skin once l Pen-injecto a week r Apixaban 2022-0 Yes [id number] 2.5mg Take 1 Ke lsey (Eliquis) 2-20 tablet Seybold 2.5 MG oral 00:00: (2.5 mg - Tablet 00 total) by Externa mouth 2 l times daily Lisinopril 2022-0 Yes [id number] 20mg Take 1 K elsey 20 MG oral 2-20 tablet (20 Sey bold Tablet 00:00: mg total) - 00 by mouth Externa daily l hydroCHLORO 2022-0 Yes [id number] 25mg Take 1 Sandra thiazide 25 2-20 tablet (25 Se ybold MG oral 00:00: mg total) - Tablet 00 by mouth Externa daily l Tirzepatide 2022-0 Yes [id number] 5mg Inject 0.5 Sandra (Mounjaro) 2-20 mL (5 mg Seybo ld 5 MG/0.5ML 00:00: total) - subcutaneou 00 into the Exte rna s Solution skin once l Pen-injecto a week r Apixaban 2022-0 Yes [id number] 2.5mg Take 1 Ke lsey (Eliquis) 2-20 tablet Seybold 2.5 MG oral 00:00: (2.5 mg - Tablet 00 total) by Externa mouth 2 l times daily Lisinopril 3-0 Yes [id number] 20mg Take 1 K elsey 20 MG oral 2-20 tablet (20 Sey bold Tablet 00:00: mg total) - 00 by mouth Externa daily l hydroCHLORO 3-0 Yes [id number] 25mg Take 1 Sandra thiazide 25 2-20 tablet (25 Se ybold MG oral 00:00: mg total) - Tablet 00 by mouth Externa daily l Metformin 2022-0 Yes [id number] TAKE 2 Ke lsey HCl 500 MG 2-03 TABLETS(10 Sey bold oral Tablet 00:00: 00 MG) BY - 00 MOUTH Externa TWICE l DAILY WITH MEALS Metformin 2022-0 Yes [id number] TAKE 2 Ke lsey HCl 500 MG 2-03 TABLETS(10 Sey bold oral Tablet 00:00: 00 MG) BY - 00 MOUTH Externa TWICE l DAILY WITH MEALS Metformin 2022-0 Yes [id number] TAKE 2 Ke lsey HCl 500 MG 2-03 TABLETS(10 Sey bold oral Tablet 00:00: 00 MG) BY - 00 MOUTH Externa TWICE l DAILY WITH MEALS Metformin 2022-0 Yes [id number] TAKE 2 Ke lsey HCl 500 MG 2-03 TABLETS(10 Sey bold oral Tablet 00:00: 00 MG) BY - 00 MOUTH Externa TWICE l DAILY WITH MEALS [place]-3 2022-0 202- No [id number] 2000mg Take 2 Sandra Fatty Acids -29 02-20 capsules Sey bold 1000 MG 00:00: 00:00 (2,000 mg - oral 00 :00 total) by Externa Capsule mouth 2 l times daily Amlodipine 2022-0 2023- No Take by Shaun sey Besylate 10 -24 -24 mouth Seybol d MG oral 09:02: 00:00 every 24 - Tablet 12 :00 hours Externa l Fluconazole 2022-0 2023- No [id number] fluconazol Sandra 150 MG oral -24 -24 e 150 mg Sey bold Tablet 08:34: 00:00 tablet - 57 :00 Externa l Apixaban 2022-0 Yes [id number] 2.5mg Take 1 Ke lsey (Eliquis) -24 tablet Seybold 2.5 MG oral 00:00: (2.5 mg - Tablet 00 total) by Externa mouth 2 l times daily hydroCHLORO 3-0 Yes [id number] 25mg Take 1 Sandra thiazide 25 1-24 tablet (25 Se ybold MG oral 00:00: mg total) - Tablet 00 by mouth Externa daily l Metformin 2022-0 Yes [id number] 1000mg Take 2 Sandra HCl 500 MG 1-24 tablets Seybol d oral Tablet 00:00: (1,000 mg - 00 total) by Externa mouth in l the morning and 2 tablets (1,000 mg total) in the evening. Take with meals. Lisinopril 2023-0 Yes [id number] 20mg Take 1 K elsey 20 MG oral 1-24 tablet (20 Sey bold Tablet 00:00: mg total) - 00 by mouth Externa daily l Tirzepatide Yes [id number] 2.5mg Inject 0.5 Sandra (Mounjaro) 1-24 mL (2.5 mg Sey bold 2.5 00:00: total) - MG/0.5ML 00 into the Externa subcutaneou skin once l s Solution a week Pen-injecto r Atorvastati Yes [id number] 40mg Take 1 Sandra n Calcium 1-24 tablet (40 Seyb old 40 MG oral 00:00: mg total) - Tablet 00 by mouth Externa daily l Atorvastati Yes [id number] 40mg Take 1 Sandra n Calcium 1-24 tablet (40 Seyb old 40 MG oral 00:00: mg total) - Tablet 00 by mouth Externa daily l Atorvastati 2022- No [id number] 40mg Take 1 Sandra n Calcium 1-24 03- tablet (40 Sey bold 40 MG oral 00:00: 00:00 mg total) - Tablet 00 :00 by mouth Externa daily l Apixaban 2022- No [id number] 2.5mg Take 1 K elsey (Eliquis) 10-12 02-20 tablet Seybold 2.5 MG oral 00:00: 00:00 (2.5 mg - Tablet 00 :00 total) by Externa mouth 2 l times daily hydroCHLORO 2022- No [id number] 25mg Take 1 Sandra thiazide 25 -24 02-20 tablet (25 S eybold MG oral 00:00: 00:00 mg total) - Tablet 00 :00 by mouth Externa daily l Lisinopril 2022- No [id number] 20mg Take 1 Sandra 20 MG oral -24 02-20 tablet (20 Se ybold Tablet 00:00: 00:00 mg total) - 00 :00 by mouth Externa daily l Tirzepatide 2022- No [id number] 2.5mg Inject 0.5 Sandra (Mounjaro) -24 02-20 mL (2.5 mg Se ybold 2.5 00:00: 00:00 total) - MG/0.5ML 00 :00 into the Externa subcutaneou skin once l s Solution a week Pen-injecto r Atorvastati 2022- No [id number] 40mg Take 1 Sandra n Calcium 24 10-12 tablet (40 Sey bold 40 MG oral 00:00: 00:00 mg total) - Tablet 00 :00 by mouth Externa daily l Fluconazole Yes [id number] fluconazol Sandra 150 MG oral 4-15 e 150 mg Seyb old Tablet 14:36: tablet 04 Sodium 2021- No [id number] Dakin's Ke lsey Hypochlorit 4-15 -15 Solution Sey bold e (Dakins, 14:35: 00:00 0.5 % full 44 :00 strength,) 0.5 % apply externally Solution Silver 2021- No [id number] SSD 1 % Ke lsey sulfADIAZIN 15 -15 topical Seyb old E (SSD) 1 % 14:35: 00:00 cream apply 32 :00 APPLY A externally 1/16 INCH Cream THICK LAYER TO ENTIRE BURN AREA TOPICALLY TWICE DAILY hydroCHLORO Yes [id number] TAKE 1 Sandra thiazide 25 4-08 TABLET(25 Sey bold MG oral 00:00: MG) BY Tablet 00 MOUTH DAILY hydroCHLORO 2022- No [id number] TAKE 1 Sandra thiazide 25 4-08 -24 TABLET(25 Se ybold MG oral 00:00: 00:00 MG) BY - Tablet 00 :00 MOUTH Externa DAILY l TRIMETHOPRI 2021- No 1{tbl} Take 1 K elsey M-SULFAMETH 4-05 -16 tablet by Se ybold OXAZOLE 00:00: 04:59 mouth 3 (Bactrim 00 :00 times DS) 800-160 daily for MG oral 10 days Tablet Ceftriaxone 2021- No [id number] 2g K elsey (ROCEPHIN) 2-15 02-15 Seybold injection 20:30: 21:10 00 :00 Ceftriaxone 2021- No [id number] 2g 2 g, K elsey (ROCEPHIN) 11-03 intramuscu Se ybold injection 20:30: 21:10 lar, ONCE, 00 :00 1 dose, On Tue11/03/21 at 1430
Fo r IM preparatio n, each 1 gram vial diluted with 2.1 mL 1% lidocaine to make 350 mg/mL. Inject desired dose IM.
Levofloxaci 2021- No [id number] 100mL 100 mL Sandra n in 11-03 every 24 Seybold Dextrose 5 14:17: 00:00 hours % 20 :00 (LEVAQUIN) 500 MG/100ML intravenous Solution Amoxicillin 2021- No [id number] amoxicilli Sandra -Pot 11-03 n 875 Seybold Clavulanate 14:17: 00:00 mg-potassi 875-125 MG 20 :00 um oral Tablet clavulanat e 125 mg tablet TAKE 1 TABLET BY MOUTH EVERY 12 HOURS Sodium Yes [id number] Dakin's Shaun sey Hypochlorit 2-15 Solution Seyb old e (Dakins, 13:16: 0.5 % full 01 strength,) 0.5 % apply externally Solution Silver Yes [id number] SSD 1 % Shaun sey sulfADIAZIN 2-15 topical Seybo ld E (SSD) 1 % 13:16: cream apply 01 APPLY A externally 1/16 INCH Cream THICK LAYER TO ENTIRE BURN AREA TOPICALLY TWICE DAILY Fluconazole Yes [id number] fluconazol Sandra 150 MG oral 2-15 e 150 mg Seyb old Tablet 13:16: tablet 01 TRIMETHOPRI 2021- No [id number] 1{tbl} Take 1 Sandra M-SULFAMETH -11-06 tablet by Se ybold OXAZOLE 00:00: 05:59 mouth 2 800-160 MG 00 :00 times oral Tablet daily for 10 days TRIMETHOPRI Yes [id number] sulfametho Sandra M-SULFAMETH 2- xazole 800 Se ybold OXAZOLE 08:50: mg-trimeth 800-160 MG 14 oprim 160 oral Tablet mg tablet TAKE 1 TABLET BY MOUTH EVERY 12 HOURS FOR 5 DAYS Sodium Yes [id number] Dakin's Shaun sey Hypochlorit 2- Solution Seyb old e (Dakins, 08:50: 0.5 % full 14 strength,) 0.5 % apply externally Solution Silver Yes [id number] SSD 1 % Shaun sey sulfADIAZIN 2 topical Seybo ld E (SSD) 1 % 08:50: cream apply 14 APPLY A externally 1/16 INCH Cream THICK LAYER TO ENTIRE BURN AREA TOPICALLY TWICE DAILY Levofloxaci Yes [id number] 100mL 100 mL Sandra n in 2- every 24 Seybold Dextrose 5 08:50: hours % 14 (LEVAQUIN) 500 MG/100ML intravenous Solution Fluconazole Yes [id number] fluconazol Sandra 150 MG oral 10-20 e 150 mg Seyb old Tablet 08:50: tablet 14 Amoxicillin Yes [id number] amoxicilli Sandra -Pot 2- n 875 Seybold Clavulanate 08:50: mg-potassi 875-125 MG 14 um oral Tablet clavulanat e 125 mg tablet TAKE 1 TABLET BY MOUTH EVERY 12 HOURS Cyclobenzap Yes [id number] 10mg Q.[id number] Take 1 Sandra rine HCl 10 - [id number] tablet (10 Seybold MG oral 00:00: 3D mg total) Tablet 00 by mouth 3 times daily as needed for muscle spasms Sennosides Yes [id number] 1{tbl} Take 1 Sandra (Senna) 8.6 10-20 9102 tablet by Sey bold MG oral 00:00: mouth 2 Tablet 00 times daily Metformin Yes [id number] 1000mg Take 2 Sandra HCl 500 MG 2-01 tablets Seybol d oral Tablet 00:00: (1,000 mg 00 total) by mouth 2 times daily (with meals) Dulaglutide Yes [id number] 1.5mg Inject 1.5 Sandra (Trulicity) 2-01 mg into Seybo ld 1.5 00:00: the skin MG/0.5ML 00 once a subcutaneou week s Solution Pen-injecto r Metformin Yes [id number] 1000mg Take 2 Sandra HCl 500 MG 2-01 tablets Seybol d oral Tablet 00:00: (1,000 mg 00 total) by mouth 2 times daily (with meals) Dulaglutide Yes [id number] 1.5mg Inject 1.5 Sandra (Trulicity) 2-01 mg into Seybo ld 1.5 00:00: the skin MG/0.5ML 00 once a subcutaneou week s Solution Pen-injecto r Cyclobenzap Yes [id number] 10mg Q.[id number] Take 1 Sandra rine HCl 10 - [id number] tablet (10 Seybold MG oral 00:00: 3D mg total) Tablet 00 by mouth 3 times daily as needed for muscle spasms Sennosides Yes [id number] 1{tbl} Take 1 Sandra (Senna) 8.6 2- 9102 tablet by Sey bold MG oral 00:00: mouth 2 Tablet 00 times daily Metformin Yes [id number] 1000mg Take 2 Sandra HCl 500 MG 2-01 tablets Seybol d oral Tablet 00:00: (1,000 mg 00 total) by mouth 2 times daily (with meals) Dulaglutide Yes [id number] 1.5mg Inject 1.5 Sandra (Trulicity) 2-01 mg into Seybo ld 1.5 00:00: the skin MG/0.5ML 00 once a subcutaneou week s Solution Pen-injecto r Metformin 2021-0 2022- No [id number] 1000mg Take 2 Sandra HCl 500 MG 2-01 01-24 tablets Seybo ld oral Tablet 00:00: 00:00 (1,000 mg - 00 :00 total) by Externa mouth 2 l times daily (with meals) Dulaglutide 2022- No [id number] 1.5mg Inject 1.5 Sandra (Trulicity) 2-01 01-24 mg into Seyb old 1.5 00:00: 00:00 the skin - MG/0.5ML 00 :00 once a Externa subcutaneou week l s Solution Pen-injecto r Cyclobenzap 0 2022- No [id number] 10mg Q.[id number] Take 1 Sandra rine HCl 10 2-01 04-15 [id number] tablet (10 Seybold MG oral 00:00: 00:00 3D mg total) Tablet 00 :00 by mouth 3 times daily as needed for muscle spasms Sennosides 2021- No [id number] 1{tbl} Take 1 Sandra (Senna) 8.6 10-20 9102 tablet by Se ybold MG oral 00:00: 00:00 mouth 2 Tablet 00 :00 times daily SSD 1 % Yes [id number] APPLY A Ke lsey apply 10-07 1/16 INCH Seybold externally 00:00: THICK Cream 00 LAYER TO ENTIRE BURN AREA TOPICALLY TWICE DAILY SSD 1 % Yes [id number] APPLY A Ke lsey apply 10-07/16 INCH Seybold externally 00:00: THICK Cream 00 LAYER TO ENTIRE BURN AREA TOPICALLY TWICE DAILY SSD 1 % 2021- No [id number] APPLY A K elsey apply 10-07/16 INCH Seybold externally 00:00: 00:00 THICK Cream 00 :00 LAYER TO ENTIRE BURN AREA TOPICALLY TWICE DAILY lisinopriL Yes lisinopril [facility] (PRINIVIL,Z 09-25 20 mg [facility] ESTRIL) 20 18:24: tablet Medic al MG tablet 37 Center dapaglifloz Yes 5mg Take [address] in 07 by mouth. [facility] (Farxiga) 5 18:24: Medica l mg tablet 37 Center collagenase Yes Santyl [address] [facility] (SantyL) 09-25 unit/gram [facility] 250 units/g 18:24: topical Med ical ointment 37 ointment Center Apply a nickel thick layer (2 mm) to wound daily as directed. Sodium 2021- No [id number] 10mL 10 mL as K elsey chloride 09-25 needed Seybold flush 0.9 % 00:00: 05:59 intravenous 00 :00 Solution Heparin 2021- No [id number] 300U 300 units Sandra Sodium Lock 09-25 as needed Se ybold Flush 100 00:00: 05:59 UNIT/ML 00 :00 intravenous Solution Morphine 2022-0 Yes [id number] morphine Sandra Sulfate ER 1-06 ER 15 mg Seybo ld 15 MG oral 00:00: tablet,ext Tab CR 00 ended release Morphine 2021-0 Yes [id number] morphine Sandra Sulfate ER 1-06 ER 15 mg Seybo ld 15 MG oral 00:00: tablet,ext Tab CR 00 ended release Morphine 2021-0 2021- No [id number] morphine Sandra Sulfate ER 1-06 04-15 ER 15 mg Seyb old 15 MG oral 00:00: 00:00 tablet,ext Tab CR 00 :00 ended release ceFAZolin 2021-0 2021- No [id number] 2g Inject 2 g Sandra Sodium-Dext 09-24 into the Donna bold stefania 2-4 00:00: 05:59 vein GM/100ML-% 00 :00 intravenous Solution levoFLOXaci 2020-09 Yes [id number] TAKE 1 Sandra n 750 MG -12 TABLET BY Seybol d oral Tablet 00:00: MOUTH 00 EVERY DAY UNTIL ALL TAKEN levoFLOXaci 1 2021- No [id number] TAKE 1 Sandra n 750 MG -12 -15 TABLET BY Seybo ld oral Tablet 00:00: 00:00 MOUTH 00 :00 EVERY DAY UNTIL ALL TAKEN Becaplermin 2020-0 Yes [id number] Apply 1 Sandra (Regranex) 04-16 applicatio Sey bold 0.01 % 00:00: n apply 00 topically externally daily Gel Becaplermin 2020-0 Yes [id number] Apply 1 Sandra (Regranex) 04-16 applicatio Sey bold 0.01 % 00:00: n apply 00 topically externally daily Gel Doxycycline 2020-0 Yes [id number] 100mg Take 1 Sandra Hyclate 100 04-16 tablet Seybol d MG oral 00:00: (100 mg Tablet 00 total) by mouth 2 times daily Becaplermin 2020- Yes [id number] Apply 1 Sandra (Regranex) 04-16 applicatio Sey bold 0.01 % 00:00: n apply 00 topically externally daily Gel levoFLOXaci 2020-0 Yes [id number] 500mg Take 1 Sandra n 04-16 tablet Seybold (Levaquin) 00:00: (500 mg 500 MG oral 00 total) by Tablet mouth daily becaplermin Yes Apply [facility] (Re[facility]ex[facility] 04-16 topically. Baron es 0.01 % gel 00:00: [address] Becaplermin 2022- No [id number] Apply 1 Sandra (Regranex) 04-1624 applicatio Se ybold 0.01 % 00:00: 00:00 n - apply 00 :00 topically Externa externally daily l Gel Doxycycline 0 2021- No [id number] 100mg Take 1 Sandra Hyclate 100 04-16-15 tablet Seybo ld MG oral 00:00: 00:00 (100 mg Tablet 00 :00 total) by mouth 2 times daily levoFLOXaci 2021- No [id number] 500mg Take 1 Sandra n 04-16 02-15 tablet Seybold (Levaquin) 00:00: 00:00 (500 mg 500 MG oral 00 :00 total) by Tablet mouth daily Insulin Yes [id number] Takes Pamela ey Syringe-Nee 5-27 insulin Seybo ld dle U-100 00:00: BID 30G X 516" 00 0.5 ML does not apply Misc Insulin Yes [id number] Takes Pamela ey Syringe-Nee 5-27 insulin Seybo ld dle U-100 00:00: BID - 30G X 516" 00 Externa 0.5 ML does l not apply Misc Insulin Yes [id number] Takes Pamela ey Syringe-Nee 5-27 insulin Seybo ld dle U-100 00:00: BID - 30G X 516" 00 Externa 0.5 ML does l not apply Misc Insulin Yes [id number] Takes Pamela ey Syringe-Nee 5-27 insulin Seybo ld dle U-100 00:00: BID - 30G X 5/16" 00 Externa 0.5 ML does l not apply Misc Insulin Yes [id number] Takes Pamela ey Syringe-Nee 5-27 insulin Seybo ld dle U-100 00:00: BID - 30G X 5/16" 00 Externa 0.5 ML does l not apply Misc Insulin Yes [id number] Takes Pamela ey Syringe-Nee 5-27 insulin Seybo ld dle U-100 00:00: BID - 30G X 16" 00 Externa 0.5 ML does l not apply Misc HUMALOG MIX Yes [id number] 20 units Sandra 75/25 5-27 SQ before Seybold (75-25) 100 00:00: breakfast UNIT/ML SC 00 and 15 SUSP units SQ before supper meal Insulin Yes [id number] Takes Pamela ey Syringe-Nee 5-27 insulin Seybo ld dle U-100 00:00: BID 30G X 16" 00 0.5 ML does not apply Misc HUMALOG MIX Yes [id number] 20 units Sandra 75/25 5-27 SQ before Seybold (75-25) 100 00:00: breakfast UNIT/ML SC 00 and 15 SUSP units SQ before supper meal Insulin Yes [id number] Takes Pamela ey Syringe-Nee 5-27 insulin Seybo ld dle U-100 00:00: BID 30G X 16" 00 0.5 ML does not apply Misc insulin Yes Takes [facility] syringe-nee 5-27 [facility] U-100 00:00: BID Medical 0.5 mL 30 00 Center gauge x 16" Syrg insulin Yes [address] [facility] lispro 5-27 SQ before [facility] protamine-i 00:00: breakfast M edical nsulin 00 and 15 Center lispro units SQ (HumaLOG before Mix supper 75-25,U-100 meal ,Insuln) 100 unit/mL (75-25) Susp injection dulaglutide Yes 1.5mg Inject 1.[address] [facility] (Trulicity) 5-27 mg [facility] 1.5 mg/0.5 00:00: subcutaneo M edical mL PnIj 00 usly. Center HUMALOG MIX 2022- No [id number] 20 units Sanrda 75/25 5-27 04-15 SQ before Seybold (75-25) 100 00:00: 00:00 breakfast UNIT/ML SC 00 :00 and 15 SUSP units SQ before supper meal Dulaglutide 2021- No [id number] 1.5mg Inject 1.5 Sandra (Trulicity) 5-27 02-01 mg into Seyb old 1.5 00:00: 00:00 the skin MG/0.5ML 00 :00 once a subcutaneou week s Solution Pen-injecto r Lisinopril Yes [id number] 40mg Take 1 K elsey 40 MG oral 4-13 tablet (40 Sey bold Tablet 00:00: mg total) 00 by mouth daily Lisinopril Yes [id number] 40mg Take 1 K elsey 40 MG oral 4-13 tablet (40 Sey bold Tablet 00:00: mg total) 00 by mouth daily Lisinopril Yes [id number] 40mg Take 1 K elsey 40 MG oral 4-13 tablet (40 Sey bold Tablet 00:00: mg total) 00 by mouth daily Lisinopril 2022- No [id number] 40mg Take 1 Sandra 40 MG oral 4-13 -24 tablet (40 Se ybold Tablet 00:00: 00:00 mg total) - 00 :00 by mouth Externa daily l Metformin 2021- No [id number] 1000mg Take 2 Sandra HCl 500 MG 4-13 02- tablets Seybo ld oral Tablet 00:00: 00:00 (1,000 mg 00 :00 total) by mouth 2 times daily (with meals) Apixaban Yes [id number] 2.5mg Take 1 Ke lsey (Eliquis) 4-08 tablet Seybold 2.5 MG oral 00:00: (2.5 mg Tablet 00 total) by mouth 2 times daily Sildenafil Yes [id number] 100mg Take 1 Sandra Citrate 100 4-08 tablet Seybol d MG oral 00:00: (100 mg Tablet 00 total) by mouth as needed for erectile dysfunctio n Atorvastati Yes [id number] 40mg Take 1 Sandra n Calcium 4-08 tablet (40 Seyb old 40 MG oral 00:00: mg total) Tablet 00 by mouth daily Sildenafil Yes [id number] 100mg Take 1 Sandra Citrate 100 4-08 tablet Seybol d MG oral 00:00: (100 mg - Tablet 00 total) by Externa mouth as l needed for erectile dysfunctio n Sildenafil Yes [id number] 100mg Take 1 Sandra Citrate 100 4-08 tablet Seybol d MG oral 00:00: (100 mg - Tablet 00 total) by Externa mouth as l needed for erectile dysfunctio n Sildenafil Yes [id number] 100mg Take 1 Sandra Citrate 100 4-08 tablet Seybol d MG oral 00:00: (100 mg - Tablet 00 total) by Externa mouth as l needed for erectile dysfunctio n Sildenafil Yes [id number] 100mg Take 1 Sandra Citrate 100 4-08 tablet Seybol d MG oral 00:00: (100 mg - Tablet 00 total) by Externa mouth as l needed for erectile dysfunctio n hydroCHLORO Yes [id number] 25mg Take 1 Sandra thiazide 25 4-08 tablet (25 Se ybold MG oral 00:00: mg total) Tablet 00 by mouth daily Sildenafil Yes [id number] 100mg Take 1 Sandra Citrate 100 4-08 tablet Seybol d MG oral 00:00: (100 mg - Tablet 00 total) by Externa mouth as l needed for erectile dysfunctio n Apixaban Yes [id number] 2.5mg Take 1 Ke [place] (Eliquis) 4-08 tablet Seybold 2.5 MG oral 00:00: (2.5 mg Tablet 00 total) by mouth 2 times daily Sildenafil Yes [id number] 100mg Take 1 Sandra Citrate 100 4-08 tablet Seybol d MG oral 00:00: (100 mg Tablet 00 total) by mouth as needed for erectile dysfunctio n Atorvastati Yes [id number] 40mg Take 1 Sandra n Calcium 4-08 tablet (40 Seyb old 40 MG oral 00:00: mg total) Tablet 00 by mouth daily Collagenase Yes [id number] Apply 1 Sandra (Santyl) 4-08 applicatio Seybo ld 250 UNIT/GM 00:00: n apply 00 topically externally daily Ointment hydroCHLORO Yes [id number] 25mg Take 1 Sandra thiazide 25 4-08 tablet (25 Se ybold MG oral 00:00: mg total) Tablet 00 by mouth daily Apixaban Yes [id number] 2.5mg Take 1 Ke lsey (Eliquis) 4-08 tablet Seybold 2.5 MG oral 00:00: (2.5 mg Tablet 00 total) by mouth 2 times daily Sildenafil Yes [id number] 100mg Take 1 Sandra Citrate 100 4-08 tablet Seybol d MG oral 00:00: (100 mg Tablet 00 total) by mouth as needed for erectile dysfunctio n Atorvastati Yes [id number] 40mg Take 1 Sandra n Calcium 4-08 tablet (40 Seyb old 40 MG oral 00:00: mg total) Tablet 00 by mouth daily Collagenase Yes [id number] Apply 1 Sandra (Santyl) 12-25 applicatio Seybo ld 250 UNIT/GM 00:00: n apply 00 topically externally daily Ointment atorvastati Yes atorvastat [facility] (LIPITOR) 08 in 40 mg Luke s 40 MG 00:00: tablet Medical tablet 00 [place] sildenafiL Yes 100mg Take [address] [facility] [address] (VIAGRA) 4-08 mg by [facility] 100 MG 00:00: mouth. Medical tablet [address] [place] [address] Apixaban 2022- No [id number] 2.5mg Take 1 K elsey (Eliquis) 12-2524 tablet Seybold 2.5 MG oral 00:00: 00:00 (2.5 mg - Tablet 00 :00 total) by Externa mouth 2 l times daily Atorvastati 2022- No [id number] 40mg Take 1 Sandra n Calcium -08 -24 tablet (40 Sey bold 40 MG oral 00:00: 00:00 mg total) - Tablet 00 :00 by mouth Externa daily l Collagenase 2021- No [id number] Apply 1 Sandra (Santyl) 12-25 04-15 applicatio Seyb old 250 UNIT/GM 00:00: [...] [facility] (NS) 0-18 ity of injection 17:12: [place] [address] [place] [address] NaCl 0.9% 2016-09 Yes 10mL Univers (NS) 0-18 ity of injection 17:12: [place] [address] [place] [address] NaCl 0.9% 2016-09 Yes 10mL Univers (NS) 0-18 ity of injection 17:12: [place] [address] [place] [address] NaCl 0.9% 2016-09 Yes 10mL Univers (NS) 0-18 ity of injection 17:12: [place] [address] [place] [address] NaCl 0.9% 2016-09 Yes 10mL Univers (NS) 0-18 ity of injection 17:12: [place] [address] [place] [address] NaCl 0.9% 2016-09 Yes 10mL [facility] (NS) 0-18 ity of injection 17:12: [place] [address] [place] [address] NaCl 0.9% 2016-09 Yes 10mL Univers (NS) 0-18 ity of injection 17:12: [place] [address] [place] [address] NaCl 0.9% 2016-09 Yes 10mL Univers (NS) 0-18 ity of injection 17:12: [place] [address] [place] [address] NaCl 0.9% 2016-09 Yes 10mL Univers (NS) 0-18 ity of injection 17:12: [place] [address] [place] [address] NaCl 0.9% 2016-09 Yes 10mL Univers (NS) 0-18 ity of injection 17:12: [address] NaCl 0.9% 2016-09 Yes 10mL Univers (NS) 0-18 ity of injection 17:12: [place] [address] [place] [address] NaCl 0.9% 2016-09 Yes 10mL Univers (NS) 0-18 ity of injection 17:12: [place] [address] [place] [address] NaCl 0.9% 2016-09 Yes 10mL Univers (NS) 0-18 ity of injection 17:12: [address] amLODIPine 2016-09 Yes [id number] 10mg Take 1 U nivers 10 mg 0-16 tablet by ity of tablet 00:00: mouth [place] 00 daily. Medical Branch insulin 2016-09 Yes [id number] 40U inject 40 U nivers glargine 0-16 Units ity of 100 unit/mL 00:00: [place] injection 00 skin at Medical bedtime. Branch blood sugar 2016-09 Yes [id number] Use TID, Univers diagnostic 0-16 DX E11.9 ity o f strip 00:00: ([address] Branch approval) lancets-blo 2016-09 Yes [id number] 1{each} 1 Each 2 Univers od glucose 0-16 (two) ity of strips 30 00:00: times [place] gauge Cmpk 00 daily. Medical Branch Blood-Gluco 2016-09 Yes [id number] Use TID, Univers se Meter 0-16 DX E11.9 ity of Kit 00:00: ([place] [address] upon [facility] Branch approval) sildenafil 2016-09 Yes [id number] Take 1 Tab [facility] 25 mg 0-16 PO Daily 1 ity of tablet 00:00: hr (range: [place] 00 30 min - 4 Medical hrs) Branch before sexual activity as needed metFORMIN 2016-09 Yes [id number] 1000mg Take 2 [facility] 500 mg 0-16 tablets by ity of tablet 00:00: mouth 2 [place] 00 (two) Medical times Branch daily with meals. hydroCHLORO 2016-09 Yes [id number] 25mg Take 1 Univers thiazide 25 0-16 tablet by ity of mg tablet 00:00: mouth [place] 00 daily. Medical Branch lisinopril 2016-09 Yes [id number] 5mg Take 1 U nivers 5 mg tablet 0-16 tablet by ity of 00:00: mouth [place] 00 daily. Medical Branch amLODIPine 2016-09 Yes [id number] 10mg Take 1 U nivers 10 mg 0-16 tablet by ity of tablet 00:00: mouth [place] 00 daily. Medical Branch insulin 2016-09 Yes [id number] 40U inject 40 U nivers glargine 0-16 Units ity of 100 unit/mL 00:00: [place] injection 00 skin at Medical bedtime. Branch blood sugar 2016-09 Yes [id number] Use TID, [facility] diagnostic 0-16 DX E11.9 ity o f strip 00:00: ([address] Branch approval) lancets-blo 2016-09 Yes [id number] 1{each} 1 Each 2 [facility] od glucose 0-16 (two) ity of strips 30 00:00: times [place] gauge Cmpk 00 daily. Medical Branch Blood-Gluco 2016-09 Yes [id number] Use TID, Univers se Meter 0-16 DX E11.9 ity of Kit 00:00: ([address] approval) sildenafil 2016-09 Yes [id number] Take 1 Tab [facility] 25 mg 0-16 PO Daily 1 ity of tablet 00:00: hr (range: [place] 00 30 min - 4 Medical hrs) Branch before sexual activity as needed metFORMIN 2016-09 Yes [id number] 1000mg Take 2 [facility] 500 mg 0-16 tablets by ity of tablet 00:00: mouth 2 [place] 00 (two) Medical times Branch daily with meals. hydroCHLORO 2016-09 Yes [id number] 25mg Take 1 Univers thiazide 25 0-16 tablet by ity of mg tablet 00:00: mouth [place] 00 daily. Medical Branch lisinopril 2016-09 Yes [id number] 5mg Take 1 U nivers 5 mg tablet 0-16 tablet by ity of 00:00: mouth [place] 00 daily. Medical Branch amLODIPine 2016-09 Yes [id number] 10mg Take 1 U nivers 10 mg 0-16 tablet by ity of tablet 00:00: mouth [place] 00 daily. Medical Branch insulin 2016-09 Yes [id number] 40U inject 40 U nivers glargine 0-16 Units ity of 100 unit/mL 00:00: [place] injection 00 skin at Medical bedtime. Branch blood sugar 2016-09 Yes [id number] Use TID, Univers diagnostic 0-16 DX E11.9 ity o f strip 00:00: ([address] approval) lancets-blo 2016-09 Yes [id number] 1{each} 1 Each 2 [facility] od glucose 0-16 (two) ity of strips 30 00:00: times [place] gauge Cmpk 00 daily. Medical Branch Blood-Gluco 2016-09 Yes [id number] Use TID, Univers se Meter 0-16 DX E11.9 ity of Kit 00:00: ([address] approval) sildenafil 2016-09 Yes [id number] Take 1 Tab Univers 25 mg 0-16 PO Daily 1 ity of tablet 00:00: hr (range: [place] 00 30 min - 4 Medical hrs) Branch before sexual activity as needed metFORMIN 2016-09 Yes [id number] 1000mg Take 2 Univers 500 mg 0-16 tablets by ity of tablet 00:00: mouth 2 [place] 00 (two) Medical times Branch daily with meals. hydroCHLORO 2016-09 Yes [id number] 25mg Take 1 Univers thiazide 25 0-16 tablet by ity of mg tablet 00:00: mouth [place] 00 daily. Medical Branch lisinopril 2016-09 Yes [id number] 5mg Take 1 U nivers 5 mg tablet 0-16 tablet by ity of 00:00: mouth [place] 00 daily. Medical Branch amLODIPine 2016-09 Yes [id number] 10mg Take 1 U nivers 10 mg 0-16 tablet by ity of tablet 00:00: mouth [place] 00 daily. Medical Branch insulin 2016-09 Yes [id number] 40U inject 40 U nivers glargine 0-16 Units ity of 100 unit/mL 00:00: [place] injection 00 skin at Medical bedtime. Branch blood sugar 2016-09 Yes [id number] Use TID, Univers diagnostic 0-16 DX E11.9 ity o f strip 00:00: ([place] [address] upon [facility] Branch approval) lancets-blo 2016-09 Yes [id number] 1{each} 1 Each 2 Univers od glucose 0-16 (two) ity of strips 30 00:00: times [place] gauge Cmpk 00 daily. Medical Branch Blood-Gluco 2016-09 Yes [id number] Use TID, Univers se Meter 0-16 DX E11.9 ity of Kit 00:00: ([place] [address] upon [facility] approval) sildenafil 2016-09 Yes [id number] Take 1 Tab Univers 25 mg 0-16 PO Daily 1 ity of tablet 00:00: hr (range: [place] 00 30 min - 4 Medical hrs) Branch before sexual activity as needed metFORMIN 2016-09 Yes [id number] 1000mg Take 2 Univers 500 mg 0-16 tablets by ity of tablet 00:00: mouth 2 [place] 00 (two) Medical times Branch daily with meals. hydroCHLORO 2016-09 Yes [id number] 25mg Take 1 Univers thiazide 25 0-16 tablet by ity of mg tablet 00:00: mouth [place] 00 daily. Medical Branch lisinopril 2016-09 Yes [id number] 5mg Take 1 U nivers 5 mg tablet 0-16 tablet by ity of 00:00: mouth [place] 00 daily. Medical Branch amLODIPine 2016-09 Yes [id number] 10mg Take 1 U nivers 10 mg 0-16 tablet by ity of tablet 00:00: mouth [place] 00 daily. Medical Branch insulin 2016-09 Yes [id number] 40U inject 40 U nivers glargine 0-16 Units ity of 100 unit/mL 00:00: [place] injection 00 skin at Medical bedtime. Branch blood sugar 2016-09 Yes [id number] Use TID, Univers diagnostic 0-16 DX E11.9 ity o f strip 00:00: ([place] [address] upon [facility] approval) lancets-blo 2016-09 Yes [id number] 1{each} 1 Each 2 Univers od glucose 0-16 (two) ity of strips 30 00:00: times [place] gauge Cmpk 00 daily. Medical Branch sildenafil 2016-09 Yes [id number] Take 1 Tab Univers 25 mg 0-16 PO Daily 1 ity of tablet 00:00: hr (range: [place] 00 30 min - 4 Medical hrs) Branch before sexual activity as needed Blood-Gluco 2016-09 Yes [id number] Use TID, Univers se Meter 0-16 DX E11.9 ity of Kit 00:00: ([address] approval) sildenafil 2016-09 Yes [id number] Take 1 Tab Univers 25 mg 0-16 PO Daily 1 ity of tablet 00:00: hr (range: [place] 00 30 min - 4 Medical hrs) Branch before sexual activity as needed metFORMIN 2016-09 Yes [id number] 1000mg Take 2 [facility] 500 mg 0-16 tablets by ity of tablet 00:00: mouth 2 [place] 00 (two) Medical times Branch daily with meals. metFORMIN 2016-09 Yes [id number] 1000mg Take 2 [facility] 500 mg 0-16 tablets by ity of tablet 00:00: mouth 2 [place] 00 (two) Medical times Branch daily with meals. hydroCHLORO 2016-09 Yes [id number] 25mg Take 1 [facility] thiazide 25 0-16 tablet by ity of mg tablet 00:00: mouth [place] 00 daily. Medical Branch lisinopril 2016-09 Yes [id number] 5mg Take 1 U nivers 5 mg tablet 0-16 tablet by ity of 00:00: mouth [place] 00 daily. Medical Branch amLODIPine 2016-09 Yes [id number] 10mg Take 1 U nivers 10 mg 0-16 tablet by ity of tablet 00:00: mouth [place] 00 daily. Medical Branch insulin 2016-09 Yes [id number] 40U inject 40 U nivers glargine 0-16 Units ity of 100 unit/mL 00:00: [place] injection 00 skin at Medical bedtime. Branch blood sugar 2016-09 Yes [id number] Use TID, Univers diagnostic 0-16 DX E11.9 ity o f strip 00:00: ([place] [address] upon [facility] Branch approval) lancets-blo 2016-09 Yes [id number] 1{each} 1 Each 2 Univers od glucose 0-16 (two) ity of strips 30 00:00: times [place] gauge Cmpk 00 daily. Medical Branch Blood-Gluco 2016-09 Yes [id number] Use TID, Univers se Meter 0-16 DX E11.9 ity of Kit 00:00: ([facility] 00 upon [facility] Branch approval) hydroCHLORO 2016-09 Yes [id number] 25mg Take 1 Univers thiazide 25 0-16 tablet by ity of mg tablet 00:00: mouth [place] 00 daily. Medical Branch sildenafil 2016-09 Yes [id number] Take 1 Tab [facility] 25 mg 0-16 PO Daily 1 ity of tablet 00:00: hr (range: [place] 00 30 min - 4 Medical hrs) Branch before sexual activity as needed metFORMIN 2016-09 Yes [id number] 1000mg Take 2 Univers 500 mg 0-16 tablets by ity of tablet 00:00: mouth 2 [place] 00 (two) Medical times Branch daily with meals. hydroCHLORO 2016-09 Yes [id number] 25mg Take 1 Univers thiazide 25 0-16 tablet by ity of mg tablet 00:00: mouth [place] 00 daily. Medical Branch lisinopril 2016-09 Yes [id number] 5mg Take 1 U nivers 5 mg tablet 0-16 tablet by ity of 00:00: mouth [place] 00 daily. Medical Branch lisinopril 2016-09 Yes [id number] 5mg Take 1 U nivers 5 mg tablet 0-16 tablet by ity of 00:00: mouth [place] 00 daily. Medical Branch amLODIPine 2016-09 Yes [id number] 10mg Take 1 U nivers 10 mg 0-16 tablet by ity of tablet 00:00: mouth [place] 00 daily. Medical Branch insulin 2016-09 Yes [id number] 40U inject 40 U nivers glargine 0-16 Units ity of 100 unit/mL 00:00: [place] the [place] injection 00 skin at Medical bedtime. Branch blood sugar 2016-09 Yes [id number] Use TID, Univers diagnostic 0-16 DX E11.9 ity o f strip 00:00: (Brand 00 upon [facility] insurance Branch approval) lancets-blo 2016-09 Yes [id number] 1{each} 1 Each 2 Univers od glucose 0-16 (two) ity of strips 30 00:00: times [place] gauge Cmpk 00 daily. Medical Branch Blood-Gluco 2016-09 Yes [id number] Use TID, Univers se Meter 0-16 DX E11.9 ity of Kit 00:00: ([address] approval) amLODIPine 2016-09 Yes [id number] 10mg Take 1 U nivers 10 mg 0-16 tablet by ity of tablet 00:00: mouth [place] 00 daily. Medical Branch sildenafil 2016-09 Yes [id number] Take 1 Tab [facility] 25 mg 0-16 PO Daily 1 ity of tablet 00:00: hr (range: [place] 00 30 min - 4 Medical hrs) Branch before sexual activity as needed metFORMIN 2016-09 Yes [id number] 1000mg Take 2 Univers 500 mg 0-16 tablets by ity of tablet 00:00: mouth 2 [place] 00 (two) Medical times Branch daily with meals. hydroCHLORO 2016-09 Yes [id number] 25mg Take 1 Univers thiazide 25 0-16 tablet by ity of mg tablet 00:00: mouth [place] 00 daily. Medical Branch lisinopril 2016-09 Yes [id number] 5mg Take 1 U nivers 5 mg tablet 0-16 tablet by ity of 00:00: mouth [place] 00 daily. Medical Branch amLODIPine 2016-09 Yes [id number] 10mg Take 1 U nivers 10 mg 0-16 tablet by ity of tablet 00:00: mouth [place] 00 daily. Medical Branch insulin 2016-09 Yes [id number] 40U inject 40 U nivers glargine 0-16 Units ity of 100 unit/mL 00:00: [place] injection 00 skin at Medical bedtime. Branch insulin 2016-09 Yes [id number] 40U inject 40 U nivers glargine 0-16 Units ity of 100 unit/mL 00:00: under the [place] injection 00 skin at Medical bedtime. Branch blood sugar 2016-09 Yes [id number] Use TID, Univers diagnostic 0-16 DX E11.9 ity o f strip 00:00: ([address] approval) lancets-blo 2016-09 Yes [id number] 1{each} 1 Each 2 Univers od glucose 0-16 (two) ity of strips 30 00:00: times [place] gauge Cmpk 00 daily. Medical Branch Blood-Gluco 2016-09 Yes [id number] Use TID, Univers se Meter 0-16 DX E11.9 ity of Kit 00:00: ([facility] upon [facility] approval) blood sugar 2016-09 Yes [id number] Use TID, Univers diagnostic 0-16 DX E11.9 ity o f strip 00:00: ([facility] upon [facility] approval) sildenafil 2016-09 Yes [id number] Take 1 Tab Univers 25 mg 0-16 PO Daily 1 ity of tablet 00:00: hr (range: [place] 00 30 min - 4 Medical hrs) Branch before sexual activity as needed metFORMIN 2016-09 Yes [id number] 1000mg Take 2 [facility] 500 mg 0-16 tablets by ity of tablet 00:00: mouth 2 [place] 00 (two) Medical times Branch daily with meals. hydroCHLORO 2016-09 Yes [id number] 25mg Take 1 Univers thiazide 25 0-16 tablet by ity of mg tablet 00:00: mouth [place] 00 daily. Medical Branch lisinopril 2016-09 Yes [id number] 5mg Take 1 U nivers 5 mg tablet 0-16 tablet by ity of 00:00: mouth [place] 00 daily. Medical Branch amLODIPine 2016-09 Yes [id number] 10mg Take 1 U nivers 10 mg 0-16 tablet by ity of tablet 00:00: mouth [place] 00 daily. Medical Branch insulin 2016-09 Yes [id number] 40U inject 40 U nivers glargine 0-16 Units ity of 100 unit/mL 00:00: under the [place] injection 00 skin at Medical bedtime. Branch blood sugar 2016-09 Yes [id number] Use TID, Univers diagnostic 0-16 DX E11.9 ity o f strip 00:00: ([facility] upon [facility] approval) lancets-blo 2016-09 Yes [id number] 1{each} 1 Each 2 Univers od glucose 0-16 (two) ity of strips 30 00:00: times [place] gauge Cmpk 00 daily. Medical Branch Blood-Gluco 2016-09 Yes [id number] Use TID, Univers se Meter 0-16 DX E11.9 ity of Kit 00:00: ([place] [address] upon [facility] approval) lancets-blo 2016-09 Yes [id number] 1{each} 1 Each 2 Univers od glucose 0-16 (two) ity of strips 30 00:00: times [place] gauge Cmpk 00 daily. Medical Branch Blood-Gluco 2016-09 Yes [id number] Use TID, Univers se Meter 0-16 DX E11.9 ity of Kit 00:00: ([address] approval) sildenafil 2016-09 Yes [id number] Take 1 Tab [facility] 25 mg 0-16 PO Daily 1 ity of tablet 00:00: hr (range: [place] 00 30 min - 4 Medical hrs) Branch before sexual activity as needed metFORMIN 2016-09 Yes [id number] 1000mg Take 2 [facility] 500 mg 0-16 tablets by ity of tablet 00:00: mouth 2 [place] 00 (two) Medical times Branch daily with meals. hydroCHLORO 2016-09 Yes [id number] 25mg Take 1 Univers thiazide 25 0-16 tablet by ity of mg tablet 00:00: mouth [place] 00 daily. Medical Branch lisinopril 2016-09 Yes [id number] 5mg Take 1 U nivers 5 mg tablet 0-16 tablet by ity of 00:00: mouth [place] 00 daily. Medical Branch amLODIPine 2016-09 Yes [id number] 10mg Take 1 U nivers 10 mg 0-16 tablet by ity of tablet 00:00: mouth [place] 00 daily. Medical Branch insulin 2016-09 Yes [id number] 40U inject 40 U nivers glargine 0-16 Units ity of 100 unit/mL 00:00: under the [place] injection 00 skin at Medical bedtime. Branch blood sugar 2016-09 Yes [id number] Use TID, Univers diagnostic 0-16 DX E11.9 ity o f strip 00:00: ([address] approval) lancets-blo 2016-09 Yes [id number] 1{each} 1 Each 2 Univers od glucose 0-16 (two) ity of strips 30 00:00: times [place] gauge Cmpk 00 daily. Medical Branch Blood-Gluco 2016-09 Yes [id number] Use TID, Univers se Meter 0-16 DX E11.9 ity of Kit 00:00: ([address] approval) sildenafil 2016-09 Yes [id number] Take 1 Tab [facility] 25 mg 0-16 PO Daily 1 ity of tablet 00:00: hr (range: [place] 00 30 min - 4 Medical hrs) Branch before sexual activity as needed metFORMIN 2016-09 Yes [id number] 1000mg Take 2 [facility] 500 mg 0-16 tablets by ity of tablet 00:00: mouth 2 [place] 00 (two) Medical times Branch daily with meals. hydroCHLORO 2016-09 Yes [id number] 25mg Take 1 Univers thiazide 25 0-16 tablet by ity of mg tablet 00:00: mouth [place] 00 daily. Medical Branch lisinopril 2016-09 Yes [id number] 5mg Take 1 U nivers 5 mg tablet 0-16 tablet by ity of 00:00: mouth [place] 00 daily. Medical Branch amLODIPine 2016-09 Yes [id number] 10mg Take 1 U nivers 10 mg 0-16 tablet by ity of tablet 00:00: mouth [place] 00 daily. Medical Branch insulin 2016-09 Yes [id number] 40U inject 40 U nivers glargine 0-16 Units ity of 100 unit/mL 00:00: under the [place] injection 00 skin at Medical bedtime. Branch blood sugar 2016-09 Yes [id number] Use TID, Univers diagnostic 0-16 DX E11.9 ity o f strip 00:00: ([place] [address] upon [facility] approval) lancets-blo 2016-09 Yes [id number] 1{each} 1 Each 2 Univers od glucose 0-16 (two) ity of strips 30 00:00: times [place] gauge Cmpk 00 daily. Medical Branch Blood-Gluco 2016-09 Yes [id number] Use TID, Univers se Meter 0-16 DX E11.9 ity of Kit 00:00: ([address] approval) sildenafil 2016-09 Yes [id number] Take 1 Tab [facility] 25 mg 0-16 PO Daily 1 ity of tablet 00:00: hr (range: [place] 00 30 min - 4 Medical hrs) Branch before sexual activity as needed metFORMIN 2016-09 Yes [id number] 1000mg Take 2 [facility] 500 mg 0-16 tablets by ity of tablet 00:00: mouth 2 [place] 00 (two) Medical times Branch daily with meals. hydroCHLORO 2016-09 Yes [id number] 25mg Take 1 [facility] thiazide 25 0-16 tablet by ity of mg tablet 00:00: mouth [place] 00 daily. Medical Branch lisinopril 2016-09 Yes [id number] 5mg Take 1 U nivers 5 mg tablet 0-16 tablet by ity of 00:00: mouth [place] 00 daily. Medical Branch amLODIPine 2016-09 Yes [id number] 10mg Take 1 U nivers 10 mg 0-16 tablet by ity of tablet 00:00: mouth [place] 00 daily. Medical Branch insulin 2016-09 Yes [id number] 40U inject 40 U nivers glargine 0-16 Units ity of 100 unit/mL 00:00: [place] injection 00 skin at Medical bedtime. Branch blood sugar 2016-09 Yes [id number] Use TID, Univers diagnostic 0-16 DX E11.9 ity o f strip 00:00: ([place] [id number] upon [facility] approval) lancets-blo 2016-09 Yes [id number] 1{each} 1 Each 2 Univers od glucose 0-16 (two) ity of strips 30 00:00: times [place] gauge Cmpk 00 daily. Medical Branch Blood-Gluco 2016-09 Yes [id number] Use TID, Univers se Meter 0-16 DX E11.9 ity of Kit 00:00: ([place] [id number] upon [facility] approval) sildenafil 2016-09 Yes [id number] Take 1 Tab Univers 25 mg 0-16 PO Daily 1 ity of tablet 00:00: hr (range: [place] 00 30 min - 4 Medical hrs) Branch before sexual activity as needed metFORMIN 2016-09 Yes [id number] 1000mg Take 2 [facility] 500 mg 0-16 tablets by ity of tablet 00:00: mouth 2 [place] 00 (two) Medical times Branch daily with meals. hydroCHLORO 2016-09 Yes [id number] 25mg Take 1 Univers thiazide 25 0-16 tablet by ity of mg tablet 00:00: mouth [place] 00 daily. Medical Branch lisinopril 2016-09 Yes [id number] 5mg Take 1 U nivers 5 mg tablet 0-16 tablet by ity of 00:00: mouth [place] 00 daily. Medical Branch Immunizations Ordered Immunization Filled Immunization Date Status Commen ts Source Name Name Influenza, 2021-08-31 Completed Sandra Argueta Injectable, Mdck, 00:00:00 Quadrivalent With Preservatie Influenza, 2021-08-31 Completed Sandra Argueta Injectable, Mdck, 00:00:00 Quadrivalent With Preservatie Influenza, 2021-08-31 Completed Sandra Argueta - Injectable, Mdck, 00:00:00 Externa l Quadrivalent With Preservatie Influenza, 2021-08-31 Completed Sandra Seybold - Injectable, Mdck, 00:00:00 Externa l Quadrivalent With Preservatie Influenza, 2021-08-31 Completed Sandra Seybold - Injectable, Mdck, 00:00:00 Externa l Quadrivalent With Preservatie Influenza, 2021-08-31 Completed Sandra Seybold - Injectable, Mdck, 00:00:00 Externa l Quadrivalent With Preservatie Influenza, 2021-08-31 Completed Sandra Seybold - Injectable, Mdck, 00:00:00 Externa l Quadrivalent With Preservatie Influenza, 2021-08-31 Completed Sandra Lozanoold Injectable, Mdck, 00:00:00 Quadrivalent With Preservatie Covid-19 Vaccine 2020-12-03 Completed Sandra Del Castillo eybold Moderna (Spikevax), 00:00:00 Mrna-lnp, [place] [employer], Pf Covid-19 Vaccine 2020-12-03 Completed Sandra tony Moderna (Spikevax), 00:00:00 Mrna-lnp, [place] [employer], Pf Covid-19 Vaccine 2020-12-03 Completed Sandra tony Moderna (Spikevax), 00:00:00 Mrna-lnp, [place] [employer], Pf Covid-19 Vaccine 2020-12-03 Completed Sandra Del Castillo eyerick Moderna (Spikevax), 00:00:00 Mrna-lnp, [place] [employer], Pf Covid-19 Vaccine 2020-12-03 Completed Sandra tony - Moderna (Spikevax), 00:00:00 Exter nal Mrna-lnp, [place] [employer], Pf Covid-19 Vaccine 2020-12-03 Completed Sandra Del Castillo eyorlinld - Moderna (Spikevax), 00:00:00 Exter nal Mrna-lnp, [place] [employer], Pf Covid-19 Vaccine 2020-12-03 Completed Sandra Del Castillo eybold - Moderna (Spikevax), 00:00:00 Exter nal Mrna-lnp, [place] [employer], Pf Covid-19 Vaccine 2020-12-03 Completed Sandra tony - Moderna (Spikevax), 00:00:00 Exter nal Mrna-lnp, [place] [employer], Pf Covid-19 Vaccine 2020-12-03 Completed Sandra tony - Moderna (Spikevax), 00:00:00 Exter nal Mrna-lnp, [place] [employer], Pf Covid-19 Vaccine 2020-12-03 Completed Sandra Del Castillo eybold - Moderna (Spikevax), 00:00:00 Exter nal Mrna-lnp, [place] [employer], Pf Covid-19 Vaccine 2020-12-03 Completed Sandra mojicaboevangelist - Moderna (Spikevax), 00:00:00 Exter nal Mrna-lnp, [place] [employer], Pf Covid-19 Vaccine 2020-12-03 Completed Sandra Del Castillo eyerick - Moderna (Spikevax), 00:00:00 Exter nal Mrna-lnp, [place] [employer], Pf Covid-19 Vaccine 2020-12-03 Completed Sandra Del Castillo eyboevangelist - Moderna (Spikevax), 00:00:00 Exter nal Mrna-lnp, [place] [employer], Pf Covid-19 Vaccine 2020-12-03 Completed Sandra Del Castillo eybold - Moderna (Spikevax), 00:00:00 Exter nal Mrna-lnp, [place] [employer], Pf Covid-19 Vaccine 2020-12-03 Completed Sandra tony (Moderna), Mrna-lnp, 00:00:00 [place] [employer], Pf, 100 Mcg/0.5ml,IM Covid-19 Vaccine 2020-12-03 Completed Sandra rodriguezld (Moderna), Mrna-lnp, 00:00:00 [place] [employer], Pf, 100 Mcg/0.5ml,IM Influenza Virus 2020-06-11 Completed Universit y of Vaccine 00:00:00 [facility] Influenza Virus 2020-06-11 Completed Universit y of Vaccine 00:00:00 [facility] Influenza Virus 2020-06-11 Completed Universit y of Vaccine 00:00:00 [facility] Influenza Virus 2020-06-11 Completed Universit y of Vaccine 00:00:00 [facility] Influenza Virus 2020-06-11 Completed Universit y of Vaccine 00:00:00 [facility] Influenza Virus 2020-06-11 Completed Universit y of Vaccine 00:00:00 [facility] Influenza Virus 2020-06-11 Completed Universit y of Vaccine 00:00:00 [facility] Influenza Virus 2020-06-11 Completed Universit y of Vaccine 00:00:00 [facility] Influenza Virus 2020-06-11 Completed Universit y of Vaccine 00:00:00 [facility] Influenza Virus 2020-06-11 Completed Universit y of Vaccine 00:00:00 [facility] Influenza Virus 2020-06-11 Completed Universit y of Vaccine 00:00:00 [facility] Influenza Virus 2020-06-11 Completed Universit y of Vaccine 00:00:00 [facility] Influenza Virus 2020-06-11 Completed Sandra Se ybold Vaccine, Unspecified 00:00:00 Formulation Influenza Virus 2020-06-11 Completed Sandra Se ybold Vaccine, Unspecified 00:00:00 Formulation Influenza Virus 2020-06-11 Completed Sandra Se ybold - Vaccine, Unspecified 00:00:00 Exte rnal Formulation Influenza Virus 2020-06-11 Completed Sandra Se ybold - Vaccine, Unspecified 00:00:00 Exte rnal Formulation Influenza Virus 2020-06-11 Completed Sandra Se ybold - Vaccine, Unspecified 00:00:00 Exte rnal Formulation Influenza Virus 2020-06-11 Completed Sandra Se ybold - Vaccine, Unspecified 00:00:00 Exte rnal Formulation Influenza Virus 2020-06-11 Completed Sandra Se ybold - Vaccine, Unspecified 00:00:00 Exte rnal Formulation Influenza Virus 2020-06-11 Completed Sandra Se ybold Vaccine, Unspecified 00:00:00 Formulation Influenza, Seasonal, 2019-08-25 Completed Pamela ey Seybold Injectable, 00:00:00 Preservative Free Pneumococcal Vaccine, 2019-08-25 Completed Shaun sey Seybold Polysaccharide 00:00:00 Influenza, Seasonal, 2019-08-25 Completed Pamela ey Seybold Injectable, 00:00:00 Preservative Free Pneumococcal Vaccine, 2019-08-25 Completed Shaun sey Seybold Polysaccharide 00:00:00 Influenza, Seasonal, 2019-08-25 Completed Pamela ey Seybold - Injectable, 00:00:00 External Preservative Free Pneumococcal Vaccine, 2019-08-25 Completed Shaun sey Seybold - Polysaccharide 00:00:00 External Influenza, Seasonal, 2019-08-25 Completed Pamela ey Seybold - Injectable, 00:00:00 External Preservative Free Pneumococcal Vaccine, 2019-08-25 Completed Shaun sey Seybold - Polysaccharide 00:00:00 External Influenza, Seasonal, 2019-08-25 Completed Pamela ey Seybold - Injectable, 00:00:00 External Preservative Free Pneumococcal Vaccine, 2019-08-25 Completed Shaun sey Seybold - Polysaccharide 00:00:00 External Influenza, Seasonal, 2019-08-25 Completed Pamela ey Seybold - Injectable, 00:00:00 External Preservative Free Pneumococcal Vaccine, 2019-08-25 Completed Shaun sey Seybold - Polysaccharide 00:00:00 External Influenza, Seasonal, 2019-08-25 Completed Pamela ey Seybold - Injectable, 00:00:00 External Preservative Free Pneumococcal Vaccine, 2019-08-25 Completed Shaun sey Seybold - Polysaccharide 00:00:00 External Influenza, Seasonal, 2019-08-25 Completed Pamela ey Seybold Injectable, 00:00:00 Preservative Free Pneumococcal Vaccine, 2019-08-25 Completed Shaun sey Seybold Polysaccharide 00:00:00 Pneumococcal 2016-11-24 Completed University o f Polysaccharide, 00:00:00 [place] [facility] ical PPSV23 (PNEUMOVAX) Branch Influenza Virus 2016-11-24 Completed Universit y of Vaccine Quad IM 3+ 00:00:00 [facility] Pneumococcal 2016-11-24 Completed University o f Polysaccharide, 00:00:00 [place] [facility] ical PPSV23 (PNEUMOVAX) Branch Influenza Virus 2016-11-24 Completed Universit y of Vaccine Quad IM 3+ 00:00:00 [facility] Pneumococcal 2016-11-24 Completed University o f Polysaccharide, 00:00:00 [place] [facility] ical PPSV23 (PNEUMOVAX) Branch Influenza Virus 2016-11-24 Completed Universit y of Vaccine Quad IM 3+ 00:00:00 [facility] Pneumococcal 2016-11-24 Completed University o f Polysaccharide, 00:00:00 [place] [facility] ical PPSV23 (PNEUMOVAX) Branch Influenza Virus 2016-11-24 Completed Universit y of Vaccine Quad IM 3+ 00:00:00 [facility] Pneumococcal 2016-11-24 Completed University o f Polysaccharide, 00:00:00 [place] [facility] ical PPSV23 (PNEUMOVAX) Branch Influenza Virus 2016-11-24 Completed Universit y of Vaccine Quad IM 3+ 00:00:00 [facility] Pneumococcal 2016-11-24 Completed University o f Polysaccharide, 00:00:00 [place] [facility] ical PPSV23 (PNEUMOVAX) Branch Influenza Virus 2016-11-24 Completed Universit y of Vaccine Quad IM 3+ 00:00:00 [facility] Pneumococcal 2016-11-24 Completed University o f Polysaccharide, 00:00:00 [place] [facility] ical PPSV23 (PNEUMOVAX) Branch Influenza Virus 2016-11-24 Completed Universit y of Vaccine Quad IM 3+ 00:00:00 [facility] Pneumococcal 2016-11-24 Completed University o f Polysaccharide, 00:00:00 [place] [facility] ical PPSV23 (PNEUMOVAX) Branch Influenza Virus 2016-11-24 Completed Universit y of Vaccine Quad IM 3+ 00:00:00 [facility] Pneumococcal 2016-11-24 Completed University o f Polysaccharide, 00:00:00 [place] [facility] ical PPSV23 (PNEUMOVAX) Branch Influenza Virus 2016-11-24 Completed Universit y of Vaccine Quad IM 3+ 00:00:00 [facility] Pneumococcal 2016-11-24 Completed University o f Polysaccharide, 00:00:00 [place] [facility] ical PPSV23 (PNEUMOVAX) Branch Influenza Virus 2016-11-24 Completed Universit y of Vaccine Quad IM 3+ 00:00:00 [facility] Pneumococcal 2016-11-24 Completed University o f Polysaccharide, 00:00:00 [place] [facility] ical PPSV23 (PNEUMOVAX) Branch Influenza Virus 2016-11-24 Completed Universit y of Vaccine Quad IM 3+ 00:00:00 [facility] Pneumococcal 2016-11-24 Completed University o f Polysaccharide, 00:00:00 [place] [facility] ical PPSV23 (PNEUMOVAX) Branch Influenza Virus 2016-11-24 Completed Universit y of Vaccine Quad IM 3+ 00:00:00 [facility] Pneumococcal 2016-11-24 Completed University o f Polysaccharide, 00:00:00 [place] [facility] ical PPSV23 (PNEUMOVAX) Branch Influenza Virus 2016-11-24 Completed Universit y of Vaccine Quad IM 3+ 00:00:00 [facility] Influenza Virus 2016-11-24 Completed Sandra pepper Vaccine, No Preserv, 00:00:00 age 6 months and up Pneumococcal Vaccine, 2016-11-24 Completed Shaun sey Seybold Polysaccharide 00:00:00 Influenza Virus 2016-11-24 Completed Sandra Se ybold Vaccine, No Preserv, 00:00:00 age 6 months and up Pneumococcal Vaccine, 2016-11-24 Completed Shaun sey Seybold Polysaccharide 00:00:00 Influenza Virus 2016-11-24 Completed Sandra Se ybold - Vaccine, No Preserv, 00:00:00 Exte rnal age 6 months and up Pneumococcal Vaccine, 2016-11-24 Completed Shaun sey Seybold - Polysaccharide 00:00:00 External Influenza Virus 2016-11-24 Completed Sandra Se ybold - Vaccine, No Preserv, 00:00:00 Exte rnal age 6 months and up Pneumococcal Vaccine, 2016-11-24 Completed Shaun sey Seybold - Polysaccharide 00:00:00 External Influenza Virus 2016-11-24 Completed Sandra Se ybold - Vaccine, No Preserv, 00:00:00 Exte rnal age 6 months and up Pneumococcal Vaccine, 2016-11-24 Completed Shaun sey Seybold - Polysaccharide 00:00:00 External Influenza Virus 2016-11-24 Completed Sandra Se ybold - Vaccine, No Preserv, 00:00:00 Exte rnal age 6 months and up Pneumococcal Vaccine, 2016-11-24 Completed Shaun sey Seybold - Polysaccharide 00:00:00 External Influenza Virus 2016-11-24 Completed Sandar Se ybold - Vaccine, No Preserv, 00:00:00 Exte rnal age 6 months and up Pneumococcal Vaccine, 2016-11-24 Completed Shaun sey Seybold - Polysaccharide 00:00:00 External Influenza Virus 2016-11-24 Completed Sandra Se ybold Vaccine, No Preserv, 00:00:00 age 6 months and up Pneumococcal Vaccine, 2016-11-24 Completed Shaun sey Seybold Polysaccharide 00:00:00 Td 2016-11-22 Completed University of 00:00:00 [facility] Td 2016-11-22 Completed University of 00:00:00 [facility] Td 2016-11-22 Completed University of 00:00:00 [facility] Td 2016-11-22 Completed University of 00:00:00 [facility] Td 2016-11-22 Completed University of 00:00:00 [facility] Td 2016-11-22 Completed University of 00:00:00 [facility] Td 2016-11-22 Completed University of 00:00:00 [facility] Td 2016-11-22 Completed University of 00:00:00 [facility] Td 2016-11-22 Completed University of 00:00:00 [facility] Td 2016-11-22 Completed University of 00:00:00 [facility] Td 2016-11-22 Completed University of 00:00:00 [facility] Td 2016-11-22 Completed University of 00:00:00 [facility] Td 2016-11-22 Completed University of 00:00:00 [facility] Td (adult) 2016-11-22 Completed Sandra Seybold 00:00:00 Td (adult) 2016-11-22 Completed Sandra Seybold 00:00:00 Td (adult) 2016-11-22 Completed Sandra Seybold - 00:00:00 External Td (adult) 2016-11-22 Completed Sandra Seybold - 00:00:00 External Td (adult) 2016-11-22 Completed Sandra Seybold - 00:00:00 External Td (adult) 2016-11-22 Completed Sandra Seybold - 00:00:00 External Td (adult) 2016-11-22 Completed Sandra Seybold - 00:00:00 External Td (adult) 2016-11-22 Completed Sandra Seybold 00:00:00 Vital Signs Vital Name Observation Time Observation Value Comments Source Body weight 2022-12-13 120.566 kg Sandra Argueta - 22:09:00 External BMI 2022-12-13 36.05 kg/m2 Sandra Lozanoold - 22:09:00 External Systolic blood 2022-12-13 134 mm[Hg] Sandra Lozanool d - pressure 21:39:00 External Diastolic blood 2022-12-13 76 mm[Hg] Sandra Lozanoo ld - pressure 21:39:00 External Heart rate 2022-12-13 67 /min Sandra Lozanoold - :39:00 External Body temperature 2022-12-13 36.89 Makenzie Sandra Lozano old - :39:00 External Respiratory rate 2022-12-13 16 /min Sandra Lozano old - :39:00 External Body height 2022-12-13 182.9 cm Sandra Argueta - :39:00 External Body height 2022-11-17 182.9 cm Sandra Seybold - 16:35:00 External Body weight 2022-11-17 120.203 kg Sandra Seybold - 16:35:00 External BMI 2022-11-17 35.94 kg/m2 Sandra Seybold - 16:35:00 External Systolic blood 2022-10-12 160 mm[Hg] Sandra Seybol d - pressure 14:28:00 External Diastolic blood 2022-10-12 100 mm[Hg] Sandra Seybo ld - pressure 14:28:00 External Heart rate 2022-10-12 113 /min Sandra Seybold - 14:28:00 External Body temperature 2022-10-12 36.56 Makenzie Sandra Seyb old - 14:28:00 External Respiratory rate 2022-10-12 16 /min Sandra Seyb old - 14:28:00 External Body height 2022-10-12 182.9 cm Sandra Seybold - 14:28:00 External Body weight 2022-10-12 125.193 kg Sandra Seybold - 14:28:00 External BMI 2022-10-12 37.43 kg/m2 Sandra Seybold - 14:28:00 External Systolic blood 2022-01-01 153 mm[Hg] per pt Sandra Seybol d pressure 19:29:00 Diastolic blood 2022-01-01 93 mm[Hg] per pt Sandra Seybo ld pressure 19:29:00 Body temperature 2022-01-01 36.33 Makenzie Sandra Seyb old 19:29:00 Body height 2022-01-01 182.9 cm per pt Sandra Seybold 19:29:00 Body weight 2022-01-01 117.935 kg per pt Sandra Seybold 19:29:00 BMI 2022-01-01 35.26 kg/m2 Sandra Seybold 19:29:00 Systolic blood 2021-11-03 158 mm[Hg] Sandra Seybol d pressure 19:16:00 Diastolic blood 2021-11-03 96 mm[Hg] Sandra Seybo ld pressure 19:16:00 Heart rate 2021-11-03 90 /min Sandra Seybold 19:16:00 Body temperature 2021-11-03 36.72 Makenzie Sandra Seyb old 19:16:00 Respiratory rate 2021-11-03 14 /min Sandra Lozano old 19:16:00 Body height 2021-11-03 182.9 cm Sandra Argueta 19:16:00 Body weight 2021-11-03 117.935 kg patient reports Sandra Sprague ld 19:16:00 BMI 2021-11-03 35.26 kg/m2 Sandra Argueta 19:16:00 Systolic blood 2021-10-20 136 mm[Hg] Sandra Lozanool d pressure 14:49:00 Diastolic blood 2021-10-20 76 mm[Hg] Sandra Lozanoo ld pressure 14:49:00 Heart rate 2021-10-20 113 /min Sandra Argueta 14:49:00 Body temperature 2021-10-20 36.72 Makenzie Sandra Lozano old 14:49:00 Respiratory rate 2021-10-20 15 /min Sandra Lozano old 14:49:00 Body height 2021-10-20 182.9 cm Sandra Argueta 14:49:00 Body temperature 2020-10-20 36.67 Makenzie University of 16:33:00 [facility] Body height 2020-10-20 180.3 cm University of 16:33:00 [facility] Body weight 2020-10-20 121.11 kg University of 16:33:00 [facility] BMI 2020-10-20 37.24 kg/m2 University of 16:33:00 [facility] Body temperature 2020-09-29 36.44 Makenzie University of 15:34:00 [facility] Body weight 2020-09-29 121.473 kg University of 15:34:00 [facility] BMI 2020-09-29 37.35 kg/m2 University of 15:34:00 [facility] Systolic blood 2020-08-11 177 mm[Hg] University of pressure 19:17:00 [facility] Diastolic blood 2020-08-11 101 mm[Hg] University o f pressure 19:17:00 [facility] Heart rate 2020-08-11 110 /min University of 19:17:00 [facility] Body temperature 2020-08-11 36.44 Makenzie University of 19:15:00 [facility] Respiratory rate 2020-08-11 16 /min University of 19:15:00 [facility] Body height 2020-08-11 180.3 cm [facility] 19:15:00 [facility] Body weight 2020-08-11 121.473 kg [facility] 19:15:00 [facility] BMI 2020-08-11 37.35 kg/m2 [facility] 19:15:00 [facility] Procedures Procedure Date / Time Performed Performing Clinician Luan gonzalez XR FOOT 3+ VW RIGHT 2020-09-29 16:15:00 Kaye Keller [facility] ASSIGNMENT OF BENEFITS 2020-08-11 19:07:32 Doctor Unassigned, No [facility] Name [facility] Plan of Care Planned Activity Planned Date Details Comments Source Future Scheduled 2026-11-22 DTAP/TDAP/TD VACCINES [facility] 00:00:00 (2 - Td or Tdap) [code Medic al Center = DTAP/TDAP/TD VACCINES (2 - Td or Tdap)] Future Scheduled 2023-05-20 Influenza Vaccine (#1) [facility] 00:00:00 [code = Influenza Medical Ce nter Vaccine (#1)] Future Scheduled 2022-09-[address] [facility] 00:00:00 (12+) [code = Medical Center DEPRESSION SCREENING (12+)] Future Scheduled 2022-09-[address] [facility] 00:00:00 Counseling and Medical Cente r Screening (12+) [code = Tobacco Cessation Counseling and Screening (12+)] Future Scheduled 2021-09-[address] [facility] 00:[facility]:00 measurement (procedure) [facility] [code = 02483818] Future Scheduled 2021-01-28 COVID-19 VACCINE (2 - [facility] 00:00:00 Booster for Moderna Medical Center series) [code = COVID-19 VACCINE (2 - Booster for Moderna series)] Future Scheduled 2019 SHINGLES VACCINES ([address] [facility] 00:00:00 2) [code = SHINGLES [facility] VACCINES (1 of 2)] Future Scheduled 2004 Lipid panel (procedure) [facility] 00:00:00 [code = 27378920] Medical Ce nter Future Scheduled 1987 HEPATITIS C SCREENING [facility] 00:00:00 [code = HEPATITIS C Medical Center SCREENING] Future Scheduled 1979 DIABETIC EYE EXAM [code [facility] 00:00:00 = DIABETIC EYE EXAM] Medical Center Future Scheduled [address] [facility] 00[facility] examination Medical Center (regime/therapy) [code = 421426116] Future Scheduled 1979 Urine screening for [facility] 00:00:00 protein (procedure) [facility] [code = 837290054] Future Scheduled 1969 CT Colonography (combo) [facility] 00:00:00 [code = CT Colonography [facility] (combo)] Future Scheduled 1969 Screening for malignant [facility] 00:00:00 neoplasm of colon Medical Ce nter (procedure) [code = 162697501] Future Scheduled 1969 Screening for malignant [facility] 00:00:00 neoplasm of colon Medical Ce nter (procedure) [code = 816783862] Future Scheduled 1969 Screening for malignant [facility] 00:00:00 neoplasm of colon Medical Ce nter (procedure) [code = 938856081] Future Scheduled 1969 Screening for malignant [facility] 00:00:00 neoplasm of colon Medical Ce nter (procedure) [code = 177917687] Future Scheduled 1969 Sigmoidoscopy [code = [facility] 00:[facility] Sigmoidoscopy] Medical Cente r Encounters Start End Encounter Admission Attending Care Care Encounter Source Date/Time Date/Time Type Type Clinicians Facility Department ID 2023-02-15 2023-02-15 Outpatient SANDRA SWANN [id number] Sandra 00:00:00 00:00:00 MARY Lozanool genevieve 2023-02-11 2023-02-11 Outpatient SANDRA SWANN [id number] Sandra 00:00:00 00:00:00 MARY vallejo 2023-01-21 2023-01-21 Outpatient SANDRA SWANN [id number] Sandra 00:00:00 00:00:00 MARY vallejo 2023-01-13 2023-01-13 Outpatient SANDRA SWANN [id number] Sandra 00:00:00 00:00:00 MARY Seybol d 2023-01-05 2023-01-05 Outpatient HUNDL, SANDRA MCDANIELS [id number] Sandra 00:00:00 00:00:00 MARY Seybol d 2023-01-04 2023-01-04 Outpatient HUNDL, SANDRA MCDANIELS [id number] Sandra 00:00:00 00:00:00 MARY Seybol d 2022-12-27 2022-12-27 Outpatient HUNDL, SANDRA MCDANIELS [id number] Sandra 00:00:00 00:00:00 MARY Seybol d 2022-12-20 2022-12-20 Outpatient HUNDL, SANDRA MCDANIELS [id number] Sandra 00:00:00 00:00:00 MARY Seybol d 2022-12-13 2022-12-13 Outpatient HUNDL, SANDRA MCDANIELS [id number] Sandra 16:30:00 16:30:00 MARY Seybol d 2022-12-13 2022-12-13 Outpatient JANE, SANDRA MCDANIELS [id number] Sandra 08:40:00 08:40:00 ABBEY Seybol d 2022-12-13 2022-12-13 Outpatient SANDRA MCDANIELS [id number] Sandra 08:25:00 08:25:00 Seybol d 2022-12-13 2022-12-13 Outpatient SANDRA MCDANIELS [id number] Sandra 08:15:00 08:15:00 Seybol d 2022-12-13 2022-12-13 Outpatient JANE, SANDRA MCDANIELS [id number] Sandra 00:00:00 00:00:00 ABBEY Seybol d 2022-12-10 2022-12-10 Outpatient JANE, SANDRA MCDANIELS [id number] Sandra 00:00:00 00:00:00 ABBEY Seybol d 2022-12-07 2022-12-07 Outpatient HUNDL, SANDRA MCDANIELS [id number] Sandra 00:00:00 00:00:00 MARY Seybol d 2022-12-06 2022-12-06 Outpatient PREZAS, SANDRA MCDANIELS [id number] Sandra 00:00:00 00:00:00 GERARDO Seybol d 2022-11-26 2022-11-26 Outpatient JAMIERAMESH SANDRA MCDANIELS [id number] Sandra 13:30:00 13:30:00 Seybol d 2022-11-26 2022-11-26 Outpatient LAB90 SANDRA MCDANIELS [id number] Sandra 12:55:00 12:55:00 Seybol d 2022-11-25 2022-11-25 Outpatient HUNDL, SANDRA MCDANIELS [id number] Sandra 00:00:00 00:00:00 MARY Seybol d 2022-11-23 2022-11-23 Outpatient HUNDL, SANDRA MCDANIELS [id number] Sandra 13:30:00 13:30:00 MARY Seybol d 2022-11-23 2022-11-23 Outpatient HUNDL, SANDRA MCDANIELS [id number] Sandra 13:30:00 13:30:00 MARY Seybol d 2022-11-17 2022-11-17 Outpatient ONWUCHURUBA SANDRA MCDANIELS [id number] Sandra 10:30:00 10:30:00 , SABRINA Sey bold 2022-11-14 2022-11-14 Outpatient HUNDL, SANDRA MCDANIELS [id number] Sandra 00:00:00 00:00:00 MARY Seybol d 2022-11-09 2022-11-09 Outpatient HUNDL, SANDRA MCDANIELS [id number] Sandra 00:00:00 00:00:00 MARY Seybol d 2022-11-08 2022-11-08 Outpatient HUNDL, SANDRA MCDANIELS [id number] Sandra 10:30:00 10:30:00 MARY Seybol d 2022-10-22 2022-10-22 Outpatient HUNDL, SANDRA MCDANIELS [id number] Sandra 00:00:00 00:00:00 MARY Seybol d 2022-10-21 2022-10-21 Outpatient PROVIDERSANDRA [id number] Sandra 20:00:00 20:00:00 VIDEOVISITN Se ybold OW 2022-10-17 2022-10-17 Outpatient HUNDL, SANDRA MCDANIELS [id number] Sandra 00:00:00 00:00:00 MARY Seybol d 2022-10-12 2022-10-12 Outpatient LAB90 SANDRA MCDANIELS [id number] Sandra 09:15:00 09:15:00 Seybol d 2022-10-12 2022-10-12 Outpatient SHREE SANDRA MCDANIELS [id number] Sandra 08:30:00 08:30:00 MARY Seybol d 2022-09-28 2022-09-28 Outpatient SHREE SANDRA MCDANIELS [id number] Sandra 08:00:00 08:00:00 MARY Seybol d 2022-01-01 2022-01-01 Telemedici Anabelle Norton [id number] Sandra 14:30:00 15:08:38 al marjGrand 350.1.13.13 Se evgeny Denton Hoover 1.2.7.2.686 [id number] 2021-12-28 2021-12-28 Outpatient LAB90 SANDRA MCDANIELS [id number] Sandra 13:45:00 13:45:00 Seybol d 2021-12-22 2021-12-22 Outpatient HILDA-OMKAR MCDANIELS [id number] Sandra 00:00:00 00:00:00 MARJ, Seybol d CORRIE 2021-12-21 2021-12-21 Outpatient SHELBI MCDANIELS [id number] Sandra 00:00:00 00:00:00 MD JOHANA Seybol d 2021-11-25 2021-11-25 Outpatient HILDA-OMKAR MCDANIELS [id number] Sandra 14:00:00 14:00:00 MARJ, Seybol d CORRIE 2021-11-24 2021-11-24 Outpatient SANDRA ERNANDEZ [id number] Sandra 09:00:00 09:00:00 MAGALIS Seybol d 2021-11-19 2021-11-19 Outpatient SANDRA HUBBARD [id number] Sandra 00:00:00 00:00:00 TEETEE Seybol d 2021-11-17 2021-11-17 Outpatient SHELBI MYERSSEY [id number] Sandra 00:00:00 00:00:00 MD JOHANA Seybol d 2021-11-16 2021-11-16 Outpatient STEVIE SANDRA MCDANIELS [id number] Sandra 00:00:00 00:00:00 TEETEE Seybol d 2021-11-11 2021-11-11 Outpatient STEVIE SANDRA MCDANIELS [id number] Sandra 08:00:00 08:00:00 TEETEE Seybol d 2021-11-11 2021-11-11 Outpatient STEVIE SANRDA MCDANIELS [id number] Sandra 00:00:00 00:00:00 TEETEE Seybol d 2021-11-04 2021-11-04 Outpatient STEVIE SANDRA MCDANIELS [id number] Sandra 00:00:00 00:00:00 TEETEE Seybol d 2021-11-03 2021-11-03 Outpatient LAB39 SANDRA MCDANIELS [id number] Sandra 15:15:00 15:15:00 Seybol d 2021-11-03 2021-11-03 Office Anabelle [facility] [id number] Sandra 13:30:00 14:30:00 Visit GABI mcmahan 350.1.13.13 evgeny Denton 1.2.7.2.686 [id number] 2021-10-28 2021-10-28 Outpatient SHREE SANDRA MCDANIELS [id number] Sandra 00:00:00 00:00:00 MARY Seybol d 2021-10-26 2021-10-26 Outpatient SHREE SANDRA MCDANIELS [id number] Sandra 00:00:00 00:00:00 MARY Seybol d 2021-10-26 2021-10-26 Outpatient ANABELLE MCDANIELS [id number] Sandra 00:00:00 00:00:00 Minerva MCMAHAN 2021-10-20 2021-10-20 Outpatient [id number] SANDRA MCDANIELS [id number] Sandra 10:15:00 10:15:00 Seybol d 2021-10-20 2021-10-20 Outpatient LAB90 SANDRA MCDANIELS [id number] Sandra 10:10:00 10:10:00 Seybol d 2021-10-20 2021-10-20 Office Ramesh Swann [id number] Sandra 09:00:00 09:30:00 Visit Mary Elias 350.1.13.13 Se evgeny 1.2.7.2.686 [id number] 2021-09-18 2021-09-25 Inpatient UR VINCENT TIERNEY Neurosurger 20 [id number] [facility] 16:39:00 18:24:00 MRINALINI y 2021-05-18 2021-05-18 Outpatient SANDRA ERNANDEZ [id number] Sandra 10:15:00 10:15:00 MAGALIS Seybol d 2021-05-15 2021-05-15 Outpatient SANDRA ERNANDEZ [id number] Sandra 00:00:00 00:00:00 MAGALIS Seybol d 2021-04-28 2021-04-28 Outpatient SANDRA ERNANDEZ [id number] Sandra 00:00:00 00:00:00 MAGALIS Seybol d 2021-04-27 2021-04-27 Outpatient SANDRA ERNANDEZ [id number] Sandra 00:00:00 00:00:00 MAGALIS Seybol d 2021-04-22 2021-04-22 Outpatient SANDRA ERNANDEZ [id number] Sandra 00:00:00 00:00:00 MAGALIS Seybol d 2021-04-20 2021-04-20 Outpatient SANDRA ERNANDEZ [id number] Sandra 00:00:00 00:00:00 MAGALIS Seybol d 2021-04-17 2021-04-17 Outpatient SANDRA ERNANDEZ [id number] Sandra 00:00:00 00:00:00 MAGALIS Seybol d 2021-04-17 2021-04-17 Outpatient MARITZA LEWIS [id number] Sandra 00:00:00 00:00:00 Seybol d 2021-04-16 2021-04-16 Outpatient SANDRA ERNANDEZ [id number] Sandra 08:30:00 08:30:00 MAGALIS Seybol d 2021-04-16 2021-04-16 Outpatient [id number] SANDRA SANDRA [id number] Sandra 08:20:00 08:20:00 Seybol d 2021-04-06 2021-04-06 Outpatient SANDRA FERMIN [id number] Sandra 00:00:00 00:00:00 ROSALBA Seybol d 2021-04-04 2021-04-04 Outpatient JENY SANDRA MCDANIELS [id number] Sandra 00:00:00 00:00:00 ROSALBA Seybol d 2020-12-02 2020-12-02 Patient Quentin [facility] 1.2.840.114 [id number] Univers 00:00:00 00:00:00 Outreach Lars PRIMARY 350.1.13.10 i ty of [facility] [place] [facility] [id number] Vt kylah [address] [place] [address] 2020-11-10 2020-11-10 [facility] [id number] Univers 09:45:00 09:45:00 [facility] 2020-10-31 2020-10-31 Telephone [facility] 1.2.840.114 [id number] Univers 00:00:00 00:00:00 Armin SPECIALTY 350.1.13.10 ity of CARE 4.2.7.2.686 [facility] s CENTER AT [id number] Vt dical EMIJazmine 198 [facility] 2020-10-20 2020-10-20 [facility] 1.2.840.114 [id number] Univers 10:05:41 13:50:58 Visit Armin SPECIALTY 350.1.13.10 ity of CARE 4.2.7.2.686 [facility] s [place] AT [id number] Vt dical VICTORY 198 [facility] 2020-10-20 2020-10-20 Outpatient [facility] [id number] Univers 09:45:00 09:45:00 KAYE ity [facility] 2020-10-13 2020-10-13 Outpatient [facility] [id number] Univers 10:30:00 10:30:00 ARMIN ity of [facility] 2020-09-29 2020-09-29 Hospital [facility] 1.2.840.114 [id number] Univers 10:03:46 23:59:00 Encounter Kaye PRIMARY 350.1.13.10 it[place] [id number] Vt dical 807 [place] 2020-09-29 2020-09-29 Office [facility] 1.2.663.693 [id number] Univers 09:27:17 10:36:22 Visit Kaye PRIMARY 350.1.13.10 it[place] [id number] Vt dicor 198 [place] 2020-09-29 2020-09-29 Outpatient R [facility] [id number] Univers 09:15:00 09:15:00 KAYE ity of [facility] 2020-08-11 2020-08-11 Front Office Attendant [facility] UNIVERSIT 1.2.840.114 [id number] Univers 14:45:44 15:00:44 Visit [facility] 350.1.13.10 ity [place] [id number] [facility] 316 [place] 2020-08-11 2020-08-11 Office Nabila Collins UNIVERSIT 1.2.840.114 [id number] Univers 13:08:19 14:38:25 Visit [facility] 350.1.13.10 ity of CL[place] [id number] [facility] 089 [place] 2020-08-11 2020-08-[address] [facility] [id number] Univers 13:00:00 13:00:00 ity of [facility] 2020-08-11 2020-08-11 Orders Doctor LEONARDO 1.2.840.114 [id number] Univers 00:00:00 00:00:00 Only Unassigned, FARHAN 350.1.13.10 ity of [place] [facility] 4.2.7.2.686 [place] [id number] [place] [address] Branch Results Test Description Test Time Test Comments Results Result Comments Source POCT-GLUCOSE METER 2021-09-25 11:26:37 Test Item Value Reference Range Interpretation Comme nts POC-GLUCOSE METER (BEAKER) 160 mg/dL 70-110 H : [facility]ED AT [facility] (test code = 1538) ADONAY Francis Mike, [address]: Franchise Specialist/Techni lucy ID = [id number] for Tian Fletcher (CELLAVISION MANUAL DIFF)2021-09-25 08:29:01 [...] CONCENTRATION Adequate (CELLAVISION)(BEAKER) (test code = 3438) Franchise Specialist ID - claudia Hoyt comments: Slide comments:CBC W/PLT COUNT & AUTO [id number] 08:29:00 Test Item Value Reference Range Interpretation [...] 0-0 (BEAKER) (test code = 413) POCT-GLUCOSE [id number] 08:03:44 Test Item Value Reference Range Interpretation Comments POC-GLUCOSE METER 155 mg/dL 70-110 H : TESTED A T [facility] 6720 (BEAKER) (test code = SHILPA URIAS ID, 1538) 97697: Franchise Specialist/Techni lucy ID = [id number] for Marcelino Cabrera BASIC METABOLIC [id number] 06:46:41 Test Item Value Reference Range Interpretation [...] S NOT APPLICABLE FOR DIALYSIS PATIEN TS. Franchise Specialist ID - ESTRADA MPOCT-GLUCOSE [id number] 17:47:29 Test Item Value Reference Range Interpretation Comments POC-GLUCOSE METER 160 mg/dL 70-110 H : TESTED A T [facility] 6720 (BEAKER) (test code = [facility], 1538) 94401: Franchise Specialist/Techni lucy ID = [id number] for Marcelino Cabrera POCT-GLUCOSE [id number] 11:07:55 Test Item Value Reference Range Interpretation Comments POC-GLUCOSE METER 185 mg/dL 70-110 H : TESTED A T [facility] 6720 (BEAKER) (test code = [facility], 1538) 38222: Franchise Specialist/Techni lucy ID = [id number] for Alisa Guadarrama POCT-GLUCOSE [id number] 07:59:08 Test Item Value Reference Range Interpretation Comments POC-GLUCOSE METER 202 mg/dL 70-110 H : TESTED A T [facility] 6720 (BEAKER) (test code = [facility], 1538) 43402: Franchise Specialist/Techni lucy ID = [id number] for Tian Cabrerais (CELLAVISION MANUAL DIFF)2021-09-24 07:06:11 Test Item Value [...] CONCENTRATION Adequate (CELLAVISION)(BEAKER) (test code = 3438) Franchise Specialist ID - Emily Torres comments: Slide comments:CBC W/PLT COUNT & AUTO [id number] 07:06:05 Test Item Value Reference Range Interpretation [...] (BEAKER) (test code = 413) BASIC METABOLIC [id number] 06:51:21 Test Item Value Reference Range Interpretation [...] S NOT APPLICABLE FOR DIALYSIS PATIEN TS. Franchise Specialist ID - DEVIKA WBLOOD [id number] 06:01:11 Test Item Value Reference Range Interpretation Comments CULTURE (BEAKER) (test No growth in 5 days code = 1095) BLOOD [id number] 01:01:07 Test Item Value Reference Range Interpretation Comments CULTURE (BEAKER) (test No growth in 5 days code = 1095) POCT-GLUCOSE [id number] 21:28:29 Test Item Value Reference Range Interpretation Comments POC-GLUCOSE METER 187 mg/dL 70-110 H : TESTED A T [facility] 6720 (BEAKER) (test code = [facility], 1538) 74010: Franchise Specialist/Techni lucy ID = [id number] for Steph Kumar BLOOD [id number] 20:00:49 Test Item Value Reference Range Interpretation Comments CULTURE (BEAKER) (test No growth in 5 days code = 1095) The specimen volume collected for this blood culture was below the optimum (10 mL per bottle or 20 mL total). Use of lower volumes may adversely affect recovery and/or detection times of some organisms.POCT-GLUCOSE [id number] 17:25:26 Test Item Value Reference Range Interpretation Comments POC-GLUCOSE METER 191 mg/dL 70-110 H : TESTED A T [facility] 6720 (BEAKER) (test code = [facility], 1538) 15644: Franchise Specialist/Techni lucy ID = [id number] for An Bina loja POCT-GLUCOSE [id number] 11:29:27 Test Item Value Reference Range Interpretation Comments POC-GLUCOSE METER 209 mg/dL 70-110 H : TESTED A T [facility] 6720 (BEAKER) (test code = [facility], 1538) 97140: Franchise Specialist/Techni lucy ID = [id number] for An Bina loja BASIC METABOLIC [id number] 06:30:06 Test Item Value Reference Range Interpretation [...] S NOT APPLICABLE FOR DIALYSIS PATIEN TS. Franchise Specialist ID - ESTRADA MCBC W/PLT COUNT & AUTO [id number] 05:32:16 Test Item Value Reference Range Interpretation [...] PERCENT (BEAKER) (test code = 2801) POCT-GLUCOSE [id number] 21:11:15 Test Item Value Reference Range Interpretation Comments POC-GLUCOSE METER 179 mg/dL 70-110 H : TESTED A T [facility] 6720 ([facility] (test code = [facility], [facility]) 68563: Franchise Specialist/Techni lucy ID = [id number] for Ty Danae westbrookn POCT-GLUCOSE [id number] 17:05:43 Test Item Value Reference Range Interpretation Comments POC-GLUCOSE METER 152 mg/dL 70-110 H : TESTED A T [facility] 6720 ([facility] (test code = [facility], [facility]) 32161: Franchise Specialist/Techni lucy ID = [id number] for ALFREDA DELEON POCT-GLUCOSE [id number] 15:29:50 Test Item Value Reference Range Interpretation Comments POC-GLUCOSE METER 177 mg/dL 70-110 H : TESTED A T [facility] 6720 (BEAKER) (test code = [facility], [facility]) 73645: Franchise Specialist/Techni lucy ID = [id number] for RO DGERS, JAMECA POCT-GLUCOSE [id number] 08:25:18 Test Item Value Reference Range Interpretation Comments POC-GLUCOSE METER 174 mg/dL 70-110 H : TESTED A T [facility] 6720 (BEAKER) (test code = [facility], [facility]) 06242: Franchise Specialist/Techni lucy ID = [id number] for RO DGERS, JAMECA (CELLAVISION MANUAL DIFF)2021-09-22 07:24:33 Test Item Value [...] CONCENTRATION Adequate (CELLAVISION)(BEAKER) (test code = 3438) Franchise Specialist ID - claudia Hoyt comments: Slide comments:CBC W/PLT COUNT & AUTO [id number] 07:24:32 Test Item Value Reference Range Interpretation [...] (BEAKER) (test code = 413) BASIC METABOLIC [id number] 05:28:03 Test Item Value Reference Range Interpretation [...] S NOT APPLICABLE FOR DIALYSIS PATIEN TS. Franchise Specialist ID - ESTRADA MPOCT-GLUCOSE [id number] 21:57:41 Test Item Value Reference Range Interpretation Comments POC-GLUCOSE METER 192 mg/dL 70-110 H : TESTED A T [facility] 6720 (BEAKER) (test code = [facility] [place], 1538) 33586: Franchise Specialist/Techni lucy ID = [id number] for Josephine Roberto POCT-GLUCOSE [id number] 17:57:30 Test Item Value Reference Range Interpretation Comments POC-GLUCOSE METER 183 mg/dL 70-110 H : TESTED A T [facility] 6720 (BEAKER) (test code = [facility] [place], 1538) 26870: Franchise Specialist/Techni lucy ID = [id number] for JOSE BASSETT HEPATIC FUNCTION [id number] 16:01:45 Test Item Value Reference Range Interpretation [...] (test code = 11 U/L 6-55 347) Franchise Specialist ID - ESTRADA MOperator ID - ESTRADA [id number] 15:56:05 Test Item Value Reference Range Interpretation Comments PHOSPHORUS (BEAKER) (test code = 3.5 mg/dL 2.3-4.7 604) Franchise Specialist ID - ESTRADA MC-REACTIVE [id number] 15:56:05 Test Item Value Reference Range Interpretation Comments C-REACTIVE PROTEIN (BEAKER) (test 15.79 mg/dL 0.00-0.50 H code = 676) Franchise Specialist ID - ESTRADA MBASIC METABOLIC [id number] 15:56:04 Test Item Value Reference Range Interpretation [...] S NOT APPLICABLE FOR DIALYSIS PATIEN TS. Franchise Specialist ID - ESTRADA [id number] 15:56:04 Test Item Value Reference Range Interpretation Comments MAGNESIUM (BEAKER) (test code = 1.7 mg/dL 1.6-2.6 627) Franchise Specialist ID - ESTRADA MCBC W/PLT COUNT & AUTO [id number] 14:57:10 Test Item Value Reference Range Interpretation [...] PERCENT (BEAKER) (test code = 2801) POCT-GLUCOSE [id number] 12:33:22 Test Item Value Reference Range Interpretation Comments POC-GLUCOSE METER 162 mg/dL 70-110 H : TESTED A T [facility] 6720 (BEAKER) (test code = [facility], 1538) 53385: Franchise Specialist/Techni lucy ID = [id number] for RO DGERS, JAMECA POCT-GLUCOSE [id number] 08:13:06 Test Item Value Reference Range Interpretation Comments POC-GLUCOSE METER 180 mg/dL 70-110 H : TESTED A T [facility] 6720 (BEAKER) (test code = [facility], 1538) 00097: Franchise Specialist/Techni lucy ID = [id number] for RO DGERS, JAMECA POCT-GLUCOSE [id number] 20:39:42 Test Item Value Reference Range Interpretation Comments POC-GLUCOSE METER 175 mg/dL 70-110 H : TESTED A T [facility] 6720 (BEAKER) (test code = [facility], 1538) 11898: Franchise Specialist/Techni lucy ID = [id number] for Steph Kumar POCT-GLUCOSE [id number] 17:10:08 Test Item Value Reference Range Interpretation Comments POC-GLUCOSE METER 188 mg/dL 70-110 H : TESTED A T [facility] 6720 (BEAKER) (test code = [facility], 1538) 29383: Franchise Specialist/Techni lucy ID = [id number] for OJ LEONOR, ARIAN POCT-GLUCOSE [id number] 11:49:26 Test Item Value Reference Range Interpretation Comments POC-GLUCOSE METER 180 mg/dL 70-110 H : TESTED A T [facility] 6720 (BEAKER) (test code = [facility], 1538) 17081: Franchise Specialist/Techni lucy ID = [id number] for OJ LEONOR, ARIAN POCT-GLUCOSE [id number] 17:09:11 Test Item Value Reference Range Interpretation Comments POC-GLUCOSE METER 174 mg/dL 70-110 H : TESTED A T [facility] 6720 (BEAKER) (test code = [facility], 1538) 11924: Franchise Specialist/Techni lucy ID = [id number] for An derson, Bina POCT-GLUCOSE [id number] 11:42:24 Test Item Value Reference Range Interpretation Comments POC-GLUCOSE METER 175 mg/dL 70-110 H : TESTED A T [facility] 6720 (BEAKER) (test code = [facility], 1538) 41809: Franchise Specialist/Techni lucy ID = [id number] for An derson, Bina MR, SPINE, LUMBAR, [id number] 10:43:00Unlisted Reason for Exam - Click Yes and Enter Reason Below->No [facility] : 1970 Sex: MFINAL REPORT EXAM/TECHNIQUE: MRI of the lumbar spine with and without IV contrast IV contrast. Multiplanar multisequence technique was performed. INDICATION: Abscess. COMPARISON: None.FINDINGS: There are five lumbar-type vertebral bodies. Normal appearance of the conus medullaris. Cauda equina is grossly normal in appearance. No acute fracture. No infiltrative marrow process. Normalalignment of the lumbar spine. There are several vertebral body hemangiomas including a STIR hyperintense lesion at L1, likely representing an atypical hemangioma. There are STIR hyperintensity and enhancement of the L5 vertebral body, L5-S1 disc, and superior aspect of the S1 vertebral body. There isenhancement involving the prevertebral soft tissue without significant psoas enhancement. Left L5-W1fagml effusion without adjacent enhancement or loss of fat. Otherwise, substantial synovial effusion, enhancement, or edema. There is epidural enhancement at L5 extending to L1 containing small pocketsof T2 hyperintense nonenhancing pockets, suggestive of abscesses, the largest measuring 15 x 2 mm. There appears to [...] mild spinal canal narrowing. No neural foraminal narrowing. L4-L5: Symmetricdisc bulge, facet arthropathy, and ligamentum flavum prominence contributes to mild spinal canal narrowing and mild bilateral neural foraminal [...] Pineda MDReport Verified Date/Time: 09/19/2021 10:43:41 POCT-GLUCOSE [id number] 07:25:08 Test Item Value Reference Range Interpretation Comments POC-GLUCOSE METER 181 mg/dL 70-110 H : TESTED Kathie Blanco [facility] 6720 (BEAKER) (test code = MARGARETTEJORGE URIAS ID, 1538) 92132: Franchise Specialist/Techni lucy ID = [id number] for An Bina loja C-REACTIVE [id number] 05:36:13 Test Item Value Reference Range Interpretation Comments C-REACTIVE PROTEIN (BEAKER) (test 15.70 mg/dL 0.00-0.50 H code = 676) Franchise Specialist ID - ESTRADA MCOMPREHENSIVE METABOLIC [id number] 05:36:12 Test Item Value Reference Range Interpretation [...] S NOT APPLICABLE FOR DIALYSIS PATIEN TS. Franchise Specialist ID - ESTRADA MSARS-COV2/RT-PCR ([facility])2021-09-19 01:23:23 Test Item Value Reference Range Interpretation Comments SARS-COV2/RT-PCR Negative Negative The SARS-Co V-2 target (test code = nucleic acids a re not 9250112) detected in thi s specimen. Negative result [...] This SARS CoV-2 test is a rapid, real-time RT-PC R test intended for th e qualitative detection [...] Food, Drug and Cosmetic Act, 21 U.S.C. 360bbb-3(b)(1), unless the authorization is terminated or revoked sooner. Fact Sheet for Healthcare Providers: https://www.[employer].co m/Documents/Xpert%20Xpress%20SARS%20CoV-2/Fact%20Sheets/302-2263%30WVKK-MLK-1%20 HEALTHCARE%20PROVIDERS%20FACT%20SHEET.pdf Fact Sheet for Healthcare Patients: https://www.cepheid.com/Documents/Xpert%20Xp ress%20SARS%20CoV-2/Fact%20Sheets/302-3801%33YKVP-WQT-8%20PATIENT%20FACT%20SHEET .pdfPOCT-GLUCOSE [id number] 22:10:31 Test Item Value Reference Range Interpretation Comments POC-GLUCOSE METER 176 mg/dL 70-110 H : TESTED A T [facility] 6720 (BEAKER) (test code = SHILPA URIAS [place], 1538) 90853: Franchise Specialist/Techni lucy ID = [id number] for Steph Kumar [id number] 19:54:47 Test Item Value Reference Range Interpretation Comments PHOSPHORUS (BEAKER) (test code = 2.8 mg/dL 2.3-4.7 604) Franchise Specialist ID - DBBASIC METABOLIC [id number] 19:54:46 Test Item Value Reference Range Interpretation [...] S NOT APPLICABLE FOR DIALYSIS PATIEN TS. Franchise Specialist ID - [id number] 19:54:46 Test Item Value Reference Range Interpretation Comments MAGNESIUM (BEAKER) (test code = 1.7 mg/dL 1.6-2.6 627) Franchise Specialist ID - [id number] 19:51:43 Test Item Value Reference Range Interpretation Comments PARTIAL THROMBOPLASTIN TIME 38.0 seconds 22.5-36.0 H (BEAKER) (test code = 760) [id number] 19:51:43 Test Item Value Reference Range Interpretation [...] RANGESSTANDARD DOSE: 2.0 - 3.0 Includes: PROPHYLAXIS for venous thrombosis, systemic embolization; TREATMENT for venous thrombosis and/or pulmonary embolus.HIGH RISK: Target INR is 2.5-3.5 for patients with mechanical heart valves.PROTHROMBIN TIME/[id number] 19:51:01 Test Item Value Reference Range Interpretation Comments PROTIME (BEAKER) 17.3 seconds 11.9-14.2 H (test code = 759) INR (BEAKER) (test 1.44 See_Comment [Automat ed message] code = 370) The system [employer] generated this result transmitted ref erence range: <=5.90. The reference range was not used to int erpret this result as normal/abnormal . RECOMMENDED COUMADIN/WARFARIN INR THERAPY RANGESSTANDARD DOSE: 2.0 - 3.0 Includes: PROPHYLAXIS for venous thrombosis, systemic embolization; TREATMENT for venous thrombosis and/or pulmonary embolus.HIGH RISK: Target INR is 2.5-3.5 for patients with mechanical heart valves.CBC W/PLT COUNT & AUTO [id number] 19:37:43 Test Item Value Reference Range Interpretation [...] PERCENT (BEAKER) (test code = 2801) POCT-GLUCOSE [id number] 17:15:12 Test Item Value Reference Range Interpretation Comments POC-GLUCOSE METER 147 mg/dL 70-110 H : TESTED Kathie Blanco [facility] [id number] (BEAKER) (test code = SHILPA URIAS ID, [id number]) [id number]: Franchise Specialist/Techni lucy ID = [id number] for An Bina loja XR FOOT 3+ VW [id number] 20:59:26 1. ?Neuropathic right mid foot. 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 There is a neuropathic joint throughout mid foot. ?There is no foreignbody. No definite soft tissue gas. There is pronounced soft tissueswelling. There is a remote fracture proximal fifth phalanx. [facility], Radiant Results Inft User - 09/29/2020 3:00 PM CSTHISTORY: Right foot charcot and edema Meet Valdivia is a 50 year old malewho presents with right foot charcot, edema, plantar open woundCOMPARISON: NoneFINDINGS:3 views of the right foot show prior second digit amputation.There is a neuropathic joint throughout mid foot. There is no foreignbody. No definite soft tissue gas.There is pronounced soft tissueswelling.There is a remote fracture proximal fifth phalanx.IMPRESSION1. Neuropathic right mid foot.RL: 1105 [facility]
[2023-03-28 19:43] LABS: Absolute Lymphocytes (CBC) 1.2 K/uL (0.7-4.9); Lymphocytes % 16.1 % (15.3-44.8); MCV 85.7 fL (80-100); MPV 6.4 fL (7.6-11.3); RBC Red Blood Cell Count 3.03 M/uL (4.33-5.43)
[2023-03-28 19:46] LABS: Protime INR 1.54
[2023-03-28] MEDS ORDERED: NA CHLORIDE 0.9% 1,000 ML ONE (19:57)
[2023-03-28] MEDS ORDERED: FAMOTIDINE 20 MG/2 ML VIAL IV ONE (19:57)
[2023-03-28 20:02] LABS: AST/SGOT 14 U/L (15-37); Albumin 2.2 g/dL (3.4-5.0); Alkaline Phosphatase 137 U/L (45-117); BUN Blood Urea Nitrogen 18 mg/dL (7-18); Bicarbonate 27 mEq/L (21-32); Bilirubin Direct 0.2 mg/dL (0-0.2); Bilirubin Indirect, Calculated 0.2 mg/dL (0.2-0.8); Bilirubin Total 0.4 mg/dL (0.2-1.0); Glomerular Filtration Rate 47 ml/min (=/>90); Glucose Level 212 mg/dL (74-106); Magnesium 1.9 mg/dL (1.6-2.4); NT PRO-BNP 472 pg/mL (<125); Potassium 3.3 mEq/L (3.5-5.1); Sodium Level 126 mEq/L (136-145); Troponin High Sensitivity 7.5 pg/mL (<58.9)
[2023-03-28 20:17] LABS: ALT/SGPT < 10 U/L (16-61)
--- NOTE | 2023-03-28 20:22 | RAD REPORT ---
EXAM DESCRIPTION: US - Extrem Venous W Compress Fox - 03/28/2023 8:17 pm CLINICAL HISTORY: PAIN COMPARISON: OB Limited dated 03/24/2023Extremity Venous Uni Ltd dated 08/25/2019 TECHNIQUE: Real-time sonographic evaluation of the lower extremity deep venous systems was performed using color Doppler, grayscale, and compression. FINDINGS: Bilateral lower extremities. Normal compressibility, flow augmentation, phasic flow and spontaneous flow is identified in both the left and right lower extremity deep venous systems. No intraluminal filling defects seen. IMPRESSION: No DVT in either lower extremity.
[2023-03-28] MEDS ORDERED: PANTOPRAZOLE 40 MG INJ ONE (20:36)
--- NOTE | 2023-03-28 20:38 | RAD REPORT ---
EXAM DESCRIPTION: RAD - Chest Single View - 03/28/2023 8:24 pm CLINICAL HISTORY: Chest pain;SOB COMPARISON: Chest Single View dated 10/01/2021; Chest Single View dated 09/15/2021; Chest Single View dated 09/13/2021; Chest Single View dated 05/07/2020 FINDINGS: Lines: None. Lungs: No evidence of edema or pneumonia. Pleural: No significant pleural effusions or pneumothorax. Cardiac: The heart size is within normal limits. Mediastinum: Within normal limits. Bones: No acute fractures. Other: None IMPRESSION: No acute cardiopulmonary disease.
--- NOTE | 2023-03-28 20:41 | ER ---
Nurse's Notes [facility] Name: Roverto Figueroa Age: 52 yrs Sex: Male : 1970 Arrival Date: 03/28/2023 Time: 18:59 Bed 3 Private MD: Diagnosis: Edema, unspecified;Type 2 diabetes mellitus with hyperglycemia;Type 2 diabetes mellitus with foot ulcer-WITH WOUND VAC;Anemia, unspecified;Unspecified kidney failure;Obesity, unspecified;Dyspnea;Chest pain, unspecified;[facility] (current) use of anticoagulants Presentation: 03/28 19:03 Chief complaint: Patient states: SOB SINCE THIS AM. ABNORMAL EKG AFTER SURGERY IN FEBRUARY. bp Coronavirus screen: At this time, the client does not indicate any symptoms associated with coronavirus-19. Ebola Screen: No symptoms or risks identified at this time. Initial Sepsis Screen: Does the patient meet any 2 criteria? HR > 90 bpm. No. Patient's initial sepsis screen is negative. Does the patient have a suspected source of infection? Yes:. Risk Assessment: Do you want to hurt yourself or someone else? Patient reports no desire to harm self or others. Onset of symptoms was March 28, 2023. 19:03 Method Of Arrival: Wheelchair bp 19:03 Acuity: KAMRYN 3 bp Triage Assessment: 19:05 General: Appears distressed, Behavior is cooperative, appropriate for age, anxious. bp Pain: Complains of pain in chest. EENT: No deficits noted. Neuro: No deficits noted. Cardiovascular: Reports chest pain. Respiratory: Reports shortness of breath Onset: The symptoms/episode began/occurred this morning, the patient has mild shortness of breath. GI: No signs and/or symptoms were reported involving the gastrointestinal system. : No signs and/or symptoms were reported regarding the genitourinary system. Derm: No deficits noted. Musculoskeletal: No deficits noted. Historical: - Allergies: 19:05 No Known Allergies; bp - PMHx: 19:05 Diabetes - NIDDM; Hypertension; bp - PSHx: 19:05 toe amputation; bp - Immunization history:: Adult Immunizations up to date. - Social history:: Smoking status: unknown. Screenin:32 [facility] ED Fall Risk Assessment (Adult) Score/Fall Risk Level 0 - 2 = Low Risk. Abuse as6 screen: Denies threats or abuse. Denies injuries from another. Nutritional screening: No deficits noted. Tuberculosis screening: No symptoms or risk factors identified. Assessment: 19:30 General: Appears in no apparent distress. Behavior is cooperative, agitated. General: as6 Reports fatigue for. Pain: Complains of pain in chest Quality of pain is described as sharp, shooting. Neuro: Level of Consciousness is awake, alert, obeys commands, Oriented to person, place, time, situation. Cardiovascular: Reports chest pain, shortness of breath, Rhythm is regular. Respiratory: Airway is patent Respiratory effort is even, unlabored, Respiratory pattern is regular, symmetrical, Breath sounds are clear bilaterally. GI: No deficits noted. No signs and/or symptoms were reported involving the gastrointestinal system. : No deficits noted. No signs and/or symptoms were reported regarding the genitourinary system. EENT: No deficits noted. No signs and/or symptoms were reported regarding the EENT system. Derm: wound vac to right lower extremity. Musculoskeletal: Reports weakness in generalized. 19:32 Respiratory: Reports shortness of breath. as6 Vital Signs: 19:03 BP 109 / 85; Pulse 105; Resp 20; Temp 97.2; Pulse Ox 100% ; bp 19:29 BP 121 / 69; Pulse 82; Resp 17 S; Pulse Ox 100% on R/A; as6 20:24 BP 130 / 72; Pulse 75; Resp 15 S; Pulse Ox 97% on R/A; as6 21:18 BP 102 / 54; Pulse 86; Resp 19 S; Pulse Ox 100% on R/A; as6 ED Course: 19:00 Patient arrived in ED. rg4 19:05 Triage completed. bp 19:05 Arm band placed on. bp 19:14 Ben Real, RN is Primary Nurse. as6 19:32 Bed in low position. Call light in reach. Side rails up X 1. Client placed on as6 continuous cardiac and pulse oximetry monitoring. NIBP monitoring applied. 19:34 Jeevan Escobar MD is Attending Physician. [facility] 19:37 Inserted saline lock: 20 gauge in right antecubital area, using aseptic technique. ah1 Blood collected. 19:38 Lipase Sent. ah1 19:38 Basic Metabolic Panel Sent. ah1 19:38 CBC with Diff Sent. ah1 19:38 LFT's Sent. ah1 19:38 Magnesium Sent. ah1 19:38 NT PRO-BNP Sent. ah1 19:38 PT-INR Sent. ah1 19:38 Troponin HS Sent. ah1 19:44 SARS RAPID Sent. ah1 19:44 Flu Sent. ah1 19:44 Lipase Sent. ah1 19:44 Basic Metabolic Panel Sent. ah1 19:44 CBC with Diff Sent. ah1 19:44 LFT's Sent. ah1 19:45 Magnesium Sent. ah1 19:45 NT PRO-BNP Sent. ah1 19:45 PT-INR Sent. ah1 19:45 Troponin HS Sent. ah1 20:19 US Extremity Venous W Compression Fox In Process Unspecified. EDMS 20:26 XRAY Chest (1 view) In Process Unspecified. EDMS 20:35 Type And Screen Sent. as6 20:38 Jesús Scott MD is Referral Physician. lea 20:46 Jesús Scott MD is Hospitalizing Provider. lea 21:18 No provider procedures requiring assistance completed. Patient admitted, IV remains in as6 place. 21:32 Provided Education on: need for admit. as6 21:32 Type And Screen Sent. [facility] Administered Medications: 19:52 Drug: Famotidine IVP 20 mg Route: IVP; Site: right antecubital; as6 21:19 Follow up: Response: No adverse reaction as6 19:52 Drug: NS 0.9% IV 1000 ml Route: IV; Rate: 125 ml/hr; Site: right antecubital; as6 21:19 Follow up: Response: No adverse reaction; IV Status: Infusion continued upon admission; as6 IV Intake: 230ml 20:35 Drug: Pantoprazole IVP 40 mg Route: IVP; Site: right antecubital; as6 21:19 Follow up: Response: No adverse reaction as6 20:52 Drug: Potassium PO Effervescent Tablet 25 mEq Route: PO; as6 21:19 Follow up: Response: No adverse reaction as6 Medication: 19:32 VIS not applicable for this client. as6 Intake: 21:19 IV: 230ml; Total: 230ml. as6 Outcome: 20:41 Discharge ordered by . lea 20:48 Decision to Hospitalize by Provider. lea 21:18 Condition: stable as6 21:18 Instructed on the need for admit. 21:32 Admitted to Med/surg accompanied by tech, room 221, Report called to Eddie COOK as6 21:43 Patient left the ED. as6 Signatures: Dispatcher [employer] EDJeevan Ann MD MD cha Garcia, Rubi rg4 Vance Ferraro, RN RN Ben Meade RN RN as6 Juanito Howard [facility]
--- NOTE | 2023-03-28 20:41 | EDPHYS ---
Physician Documentation [facility] Name: Roverto Figueroa Age: 52 yrs Sex: Male : 1970 Arrival Date: 03/28/2023 Time: 18:59 Bed 3 Private MD: ED Physician Jeevan Escobar HPI: 03/28 19:41 This 52 yrs old Male presents to ER via Wheelchair with complaints of lea Breathing Difficulty, Chest Pain. 19:41 The patient has shortness of breath at rest, with light activity. Onset: The lea symptoms/episode began/occurred just prior to arrival, this morning. Duration: The symptoms are intermittent, with no pattern. The patient's shortness of breath is aggravated by exertion, is alleviated by rest, application of supplemental oxygen. Associated signs and symptoms: Pertinent positives: chest pain. The patient has experienced similar episodes in the past, a few times. Historical: - Allergies: 19:05 No Known Allergies; bp - PMHx: 19:05 Diabetes - NIDDM; Hypertension; bp - PSHx: 19:05 toe amputation; bp - Immunization history:: Adult Immunizations up to date. - Social history:: Smoking status: unknown. ROS: 19:42 Constitutional: Negative for fever, chills, and weight loss, Eyes: Negative for injury, lea pain, redness, and discharge, ENT: Negative for injury, pain, and discharge, Neck: Negative for injury, pain, and swelling, Respiratory: Negative for shortness of breath, cough, wheezing, and pleuritic chest pain, Abdomen/GI: Negative for abdominal pain, nausea, vomiting, diarrhea, and constipation, Back: Negative for injury and pain, : Negative for injury, bleeding, discharge, and swelling, MS/Extremity: Negative for injury and deformity, Skin: Negative for injury, rash, and discoloration, Neuro: Negative for headache, weakness, numbness, tingling, and seizure, Psych: Negative for depression, anxiety, suicide ideation, homicidal ideation, and hallucinations, Allergy/Immunology: Negative for hives, rash, and allergies, Endocrine: Negative for neck swelling, polydipsia, polyuria, polyphagia, and marked weight changes, Hematologic/Lymphatic: Negative for swollen nodes, abnormal bleeding, and unusual bruising. 19:42 Cardiovascular: Positive for chest pain. 19:42 MS/extremity: Positive for pain, swelling, of the right leg. Exam: 19:42 Constitutional: This is a well developed, well nourished patient who is awake, alert, lea and in no acute distress. Head/Face: Normocephalic, atraumatic. Eyes: Pupils equal round and reactive to light, extra-ocular motions intact. Lids and lashes normal. Conjunctiva and sclera are non-icteric and not injected. Cornea within normal limits. Periorbital areas with no swelling, redness, or edema. ENT: Nares patent. No nasal discharge, no septal abnormalities noted. Tympanic membranes are normal and external auditory canals are clear. Oropharynx with no redness, swelling, or masses, exudates, or evidence of obstruction, uvula midline. Mucous membranes moist. Neck: Trachea midline, no thyromegaly or masses palpated, and no cervical lymphadenopathy. Supple, full range of motion without nuchal rigidity, or vertebral point tenderness. No Meningismus. Chest/axilla: Normal chest wall appearance and motion. Nontender with no deformity. No lesions are appreciated. Cardiovascular: Regular rate and rhythm with a normal S1 and S2. No gallops, murmurs, or rubs. Normal PMI, no JVD. No pulse deficits. Respiratory: Lungs have equal breath sounds bilaterally, clear to auscultation and percussion. No rales, rhonchi or wheezes noted. No increased work of breathing, no retractions or nasal flaring. Abdomen/GI: Soft, non-tender, with normal bowel sounds. No distension or tympany. No guarding or rebound. No evidence of tenderness throughout. Back: No spinal tenderness. No costovertebral tenderness. Full range of motion. Male : Normal genitalia with no discharge or lesions. Skin: Warm, dry with normal turgor. Normal color with no rashes, no lesions, and no evidence of cellulitis. Neuro: Awake and alert, GCS 15, oriented to person, place, time, and situation. Cranial nerves II-XII grossly intact. Motor strength 5/5 in all extremities. Sensory grossly intact. Cerebellar exam normal. Normal gait. Psych: Awake, alert, with orientation to person, place and time. Behavior, mood, and affect are within normal limits. 19:42 ECG was reviewed by the Attending Physician. 19:42 Musculoskeletal/extremity: Extremities: grossly normal except: decreased ROM, pain, swelling, tenderness. Vital Signs: 19:03 BP 109 / 85; Pulse 105; Resp 20; Temp 97.2; Pulse Ox 100% ; bp 19:29 BP 121 / 69; Pulse 82; Resp 17 S; Pulse Ox 100% on R/A; as6 20:24 BP 130 / 72; Pulse 75; Resp 15 S; Pulse Ox 97% on R/A; as6 21:18 BP 102 / 54; Pulse 86; Resp 19 S; Pulse Ox 100% on R/A; as6 MDM: 19:34 Patient medically screened. lea 19:44 Differential diagnosis: contusion, tendonitis, Anemia Anxiety Reaction CHF lea exacerbation, Chronic Obstructive Pulmonary Disease abnormal EKG, acute myocardial infarction, acute pericarditis, anxiety, coronary artery disease cholecystitis, esophagitis, gastritis, gastroesophageal reflux disease (GERD), hiatal hernia, pancreatitis, pericarditis, pneumonia, pneumothorax, pulmonary embolus, unstable angina, Myocardial Infarction pneumonia, pulmonary edema, reactive airway disease, Unstable Angina. Antibiotic administration: Not indicated. HEART Score: History: Slightly Suspicious (0), ECG: Non specific repolarization disturbance / LBTB / PM (1), Age: > 45 and < 65 years (1), Risk Factors: > or = 3 Risk factors for atherosclerotic disease (2), [Hypertension] [DM] [+ Family HX] [Obesity] Troponin: < or = 1 x Normal Limit (0). The patient was not given aspirin in the Emergency Department. Not indicated due to patient's past medical history. MARISSA Risk Score: 1 - Three or more CAD risk factors, TOTAL SCORE = 1. Immunization status: Influenza vaccine: within last 5 years. Data reviewed: vital signs, nurses notes, EMS record, lab test result(s), EKG, radiologic studies, CT scan, doppler, plain films. Consideration of Admission/Observation Patient was admitted/placed on observation. Escalation of care including admission/observation considered. I considered the following discharge prescriptions or medication management in the emergency department Medications were administered in the Emergency Department. See NOV. Test considered but Not performed: Ultrasound no echo 2d in er. Historians other than the Patient: EMS: ems informed. Care significantly affected by the following chronic conditions: Diabetes, Hypertension, Obesity. Counseling: I had a detailed discussion with the patient and/or guardian regarding: the historical points, exam findings, and any diagnostic results supporting the discharge/admit diagnosis, lab results, radiology results, the need for further work-up and treatment in the hospital. 03/28 19:27 Order name: Basic Metabolic Panel; Complete Time: 20:32 03/28 19:27 Order name: CBC with Diff; Complete Time: 20:12 03/28 19:27 Order name: LFT's; Complete Time: 20:32 03/28 19:27 Order name: Magnesium; Complete Time: 20:32 03/28 19:27 Order name: NT PRO-BNP; Complete Time: 20:32 03/28 19:27 Order name: PT-INR; Complete Time: 20:12 03/28 19:27 Order name: Troponin HS; Complete Time: 20:32 03/28 19:35 Order name: Lipase; Complete Time: 20:12 [facility] 03/28 19:35 Order name: Flu; Complete Time: 20:32 [facility] 03/28 19:35 Order name: Urinalysis w/ reflexes [facility] 03/28 19:51 Order name: SARS-COV-2 RT PCR 03/28 20:12 Order name: Type And Screen [facility] 03/28 19:27 Order name: XRAY Chest (1 view); Complete Time: 20:42 03/28 19:41 Order name: US Extremity Venous W Compression Fox; Complete Time: 20:32 [facility] 03/28 19:27 Order name: EKG; Complete Time: 19:28 03/28 19:27 Order name: Cardiac monitoring; Complete Time: 19:28 03/28 19:27 Order name: EKG - Nurse/Tech; Complete Time: 19:28 03/28 19:27 Order name: IV Saline Lock; Complete Time: 19:36 03/28 19:27 Order name: Labs collected and sent; Complete Time: 19:36 03/28 19:27 Order name: O2 Per Protocol; Complete Time: 19:28 03/28 19:27 Order name: O2 Sat Monitoring; Complete Time: 19:28 03/28 21:07 Order name: Labs - recollect needed: type and screen ; Complete Time: 21:32 bc6 EC:42 Rate is 83 beats/min. Rhythm is regular. QRS [place] is Normal. OR interval is normal. QRS lea interval is normal. QT interval is normal. No Q waves. T waves are Normal. No ST changes noted. Clinical impression: NSR w/ Non-specific ST/T Changes and No evidence of ischemia. Interpreted by me. Reviewed by me. Administered Medications: 19:52 Drug: Famotidine IVP 20 mg Route: IVP; Site: right antecubital; as6 21:19 Follow up: Response: No adverse reaction as6 19:52 Drug: NS 0.9% IV 1000 ml Route: IV; Rate: 125 ml/hr; Site: right antecubital; as6 21:19 Follow up: Response: No adverse reaction; IV Status: Infusion continued upon admission; as6 IV Intake: 230ml 20:35 Drug: Pantoprazole IVP 40 mg Route: IVP; Site: right antecubital; as6 21:19 Follow up: Response: No adverse reaction as6 20:52 Drug: Potassium PO Effervescent Tablet 25 mEq Route: PO; as6 21:19 Follow up: Response: No adverse reaction as6 Disposition Summary: 03/28/23 20:48 Hospitalization Ordered Hospitalization Status: Inpatient Admission lea Provider: Jesús Scott cha Location: Telemetry/MedSurg (Inpatient)(03/28/23 20:48) lea Condition: Fair(03/28/23 20:48) lea Problem: new(03/28/23 20:48) lea Symptoms: have improved(03/28/23 20:48) lea Bed/Room Type: Standard [facility] Room Assignment: 221(03/28/23 21:14) Diagnosis - Edema, unspecified(03/28/23 20:48) lea - Type 2 diabetes mellitus with hyperglycemia(03/28/23 20:48) lea - Type 2 diabetes mellitus with foot ulcer - WITH WOUND VAC lea - Anemia, unspecified(03/28/23 20:48) lea - Unspecified kidney failure(03/28/23 20:48) lea - Obesity, unspecified(03/28/23 20:48) lea - Dyspnea lea - Chest pain, unspecified(03/28/23 20:48) lea - [facility] (current) use of anticoagulants lea Forms: - Medication Reconciliation Form lea - SBAR form lea Signatures: Dispatcher [employer] EDMS Jeevan Escobar MD MD cha Garcia, Cindy, RN RN cg Vance Ferraro, RN RN Ben Meade, JOEY RN as6 Jacqui Betancur 6 Corrections: (The following items were deleted from the chart) 20:41 19:43 Chest For PE Angio+CT.RAD.BRZ ordered. EDMS EDMS 20:46 20:41 Home lea lea 20:46 20:41 new lea lea 20:46 20:41 have improved lea lea 20:46 20:41 Stable lea lea 20:46 20:41 Chest pain, unspecified lea lea 20:46 20:41 Anemia, unspecified lea lea 20:46 20:41 Edema, unspecified lea lea 20:46 20:41 Obesity, unspecified lea lea 20:46 20:41 Type 2 diabetes mellitus with hyperglycemia lea lea 20:46 20:41 Unspecified kidney failure lea lea 20:46 20:41 Hypokalemia lea lea 21:14 20:48 lea cg
[2023-03-28] MEDS ORDERED: POTASSIUM 25 MEQ EFFERV TAB ONE (20:58)
--- NOTE | 2023-03-28 20:58 | P.HP ---
Certification for Inpatient Patient admitted to: Inpatient With expected LOS: <2 Midnights Patient will require the following post-hospital care: None Practitioner: I am a practitioner with admitting privileges, knowledge of patient current condition, hospital course, and medical plan of care. Services: Services provided to patient in accordance with Admission requirements found in Title 42 Section 412.3 of the Code of Federal Regulations Patient History Date of Service: 03/28/23 Reason for admission: Chest pain History of Present Illness: 52-year-old male with a past medical history significant for DM2, hypertension, obesity, chronic pain syndrome, Charcot's foot, anemia, PVD chronic right lower foot wound with a Vac-Pac dressing presents to the emergency room with shortness of breath. He reports shortness of breath at rest today with mild associated chest pain. He reports symptoms worse with exertion problem, relieved by rest. He denies shortness of breath or chest pain on evaluation. He reports associated fatigue over the last week that was worse today. He reports taking Bactrim for right lower foot wound that is being followed by surgery. He denies fever, cough, he reports right lower extremity swelling that is chronic. He is nonweightbearing, uses a electric wheelchair for transfers. He reports alcohol use 3-4 drinks per day, that includes rum and beer. He denies tobacco use. laboratory evaluation Sodium is 126, potassium is 3.3, acute kidney injury, BUN 18, creatinine 1.71, glucose 212, hypocalcemia 8.0, albumin is low at 2.2, lipase elevated at 76, CBC WBCs are normal, early left shift neutrophils at 74.6, microcytic anemia 8.7, 26.0, COVID, pending, UA pending, troponin normal at 7.5, BNP elevated at 472, EKG NSR w/ Non-specific ST/T Changes and No evidence of ischemia Chest x-ray no acute pulmonary disease Allergies No Known Allergies Allergy (Verified 05/07/20 08:35) Home Medications: Lisinopril [Zestril] 1 tab PO DAILY 01/04/22 hydroCHLOROthiazide [Hydrochlorothiazide] 1 tab PO DAILY 01/04/22 Apixaban [Eliquis] 5 mg PO BID #60 tablet 01/05/22 Metformin ER [Glucophage ER*] 1,000 mg PO BID 01/18/23 - Past Medical/Surgical History Diabetic: Yes -: Hypertension -: Diabetes -: Amputation of right toe 2016 -: Femoral Stent - Family History Father -: Cancer - Social History Alcohol use: Yes CD- Drugs: No Caffeine use: Yes Physical Examination - Physical Exam General: Alert, In no apparent distress, Oriented x3, Disheveled HEENT: Atraumatic, Normocephalic, PERRLA Neck: Supple, 2+ carotid pulse no bruit, JVD not distended Respiratory: Clear to auscultation bilaterally, Normal air movement (88) Cardiovascular: Edema, Irregular heart rate/rhythm Capillary refill: Other (Right lower extremity edema) Gastrointestinal: Normal bowel sounds, Non-distended Musculoskeletal: Swelling (Right lower extremity) Integumentary: Diabetic ulcer (With edema) - Studies Laboratory Data (last 24 hrs) 03/28/23 19:35: Lipase 76 H 03/28/23 19:35: PT 16.9 H, INR 1.54 03/28/23 19:35: WBC 7.30, Hgb 8.7 L, Hct 26.0 L, Plt Count 378 03/28/23 19:35: Sodium 126 L, Potassium 3.3 L, BUN 18, Creatinine 1.71 H, Glucose 212 H, Magnesium 1.9, Total Bilirubin 0.4, AST 14 L, ALT < 10 L, Alkaline Phosphatase 137 H Microbiology Data (last 24 hrs): 03/28/23 19:42 Nasopharnyx Influenza Type A Antigen Screen - Final 03/28/23 19:42 Nasopharnyx Influenza Type B Antigen Screen - Final Assessment and Plan - Plan Assessment plan Chest pain rule out [place] Acute kidney injury unknown baseline Dyspnea Microcytic anemia Hyponatremia DM2 with hyperglycemia. BS monitoring with sliding scale insulin. Hypertension. Stable. Continue home medications and hydralazine as needed. History of Charcot's foot with right foot wound. Patient reported that wound is almost healed. Patient follows with outpatient vascular surgeon. Continue supportive care. History of PVD Nonweightbearing wheelchair dependent Right lower extremity pressure ulcer Obesity Alcohol use DVT prophylaxis Assessment plan Chest pain rule out [place]-cardiology consult, trend troponins Acute kidney injury unknown baseline-gentle IV fluids, nephrology consult trend kidney function Dyspnea-O2 2 L keep sats greater than 92% Microcytic anemia-type and cross, trend H&H Hyponatremia-gentle IV fluids DM2 with hyperglycemia. BS monitoring with sliding scale insulin. Hypertension.Continue home medications and hydralazine as needed. History of Charcot's foot with right foot wound. Patient follows with outpatient vascular surgeon. Wound care consult History of PVD-supportive care Nonweightbearing wheelchair dependent-PT consult fall precautions Right lower extremity pressure ulcer-wound care Obesity-education on diabetic diet Alcohol use-CIWA precautions DVT prophylaxis Diet n.p.o. after midnight Full code Discharge Plan: Home Plan to discharge in: 48 Hours - Advance Directives Does patient have a Living Will: No Does patient have a Durable POA for Healthcare: No - Code Status/Comfort Care Code Status: Full Code Physician Review: Patient Assessed, Agree with Above Assessment and Plan
[2023-03-28] MEDS ORDERED: ONDANSETRON 4 MG/2 ML VIAL IV PRN (21:04)
[2023-03-28] MEDS ORDERED: ACETAMINOPHEN 500 MG TAB PO PRN (21:04)
[2023-03-28] MEDS ORDERED: ALPRAZOLAM 0.25 MG TABLET PO PRN (21:04)
[2023-03-28 22:18] VITALS: BMI 32.7
[2023-03-28] MEDS: NA CHLORIDE 0.9% 1,000 ML IV SCH (22:33)
[2023-03-28 23:51] VITALS: O2SAT 98
[2023-03-29] MEDS: LORAZEPAM 1 MG TABLET PO PRN ×2 (03:07→22:20)
[2023-03-29] MEDS: HEPARIN 5000 UNIT/ML 1 ML VIAL SQ SCH ×3 (03:16→17:02)
[2023-03-29 04:10] LABS: Absolute Lymphocytes (CBC) 2.1 K/uL (0.7-4.9); Hematocrit 24.2 % (39.6-49.0); Lymphocytes % 30.4 % (15.3-44.8); MCV 86.9 fL (80-100); MPV 6.5 fL (7.6-11.3); RBC Red Blood Cell Count 2.78 M/uL (4.33-5.43)
[2023-03-29 05:22] LABS: Phosphorus 3.5 mg/dL (2.5-4.9); Potassium 3.5 mEq/L (3.5-5.1)
[2023-03-29] MEDS: INSULIN -REGULAR HUMAN 50 UNIT/0.5 ML ML SQ SCH ×4 (07:30→21:00)
[2023-03-29] MEDS ORDERED: POTASSIUM CL SA 10 MEQ TAB PO ONE (09:00)
--- NOTE | 2023-03-29 17:23 | P.PN ---
Subjective Date of Service: 03/29/23 Chief Complaint: Chest pain Patient presented with shortness of breath. He now states his shortness of breath is better but does not feel at baseline. Physical Examination - Vital Signs Temperature: 97.5 F Blood Pressure: 124/71 Pulse: 83 Respirations: 18 Pulse Ox (%): 100 - Studies Laboratory Data (last 24 hrs) 03/28/23 19:35: Lipase 76 H 03/28/23 19:35: PT 16.9 H, INR 1.54 03/28/23 19:35: WBC 7.30, Hgb 8.7 L, Hct 26.0 L, Plt Count 378 03/28/23 19:35: Sodium 126 L, Potassium 3.3 L, BUN 18, Creatinine 1.71 H, Glucose 212 H, Magnesium 1.9, Total Bilirubin 0.4, AST 14 L, ALT < 10 L, Alkaline Phosphatase 137 H Microbiology Data (last 24 hrs): 03/28/23 19:42 Nasopharnyx Influenza Type A Antigen Screen - Final 03/28/23 19:42 Nasopharnyx Influenza Type B Antigen Screen - Final Assessment And Plan - Plan Physical Exam General: Alert, In no apparent distress, Oriented x3, Disheveled Neck: Supple, no elevated JVD. Respiratory: Clear to auscultation bilaterally, Normal air movement. Cardiovascular: Edema, Irregular heart rate/rhythm Capillary refill: Other (Right lower extremity edema) Gastrointestinal: Normal bowel sounds, Non-distended Musculoskeletal: Right lower extremity swelling, right charcot foot. Integumentary: Diabetic ulcer Diagnosis Shortness of breath Chest pain. Acute on chronic kidney disease stage III Microcytic anemia Hyponatremia DM2 with hyperglycemia. BS monitoring with sliding scale insulin. Hypertension. Stable. Continue home medications and hydralazine as needed. History of Charcot's foot with right foot wound. Patient reported that wound is almost healed. Patient follows with outpatient vascular surgeon. Continue supportive care. History of PVD Nonweightbearing wheelchair dependent Right lower extremity pressure ulcer Obesity Alcohol use DVT prophylaxis Plan Chest pain Troponin trended negative. ACS ruled out. Shortness of breath/generalized weakness Patient with lower extremity edema. Need to rule out CHF. Echocardiogram is pending. Acute on chronic kidney disease stage III Serum creatinine improved from yesterday Discontinue IV fluid. Microcytic anemia Unknown etiology. Suspect occult GI bleed. No active bleeding. Monitor and transfuse as needed for hemoglobin less than 7. Follow-up as outpatient. Hold Eliquis for now Hyponatremia Improved. Unknown etiology. Differential diagnosis-dehydration versus renal sodium loss secondary to hydrochlorothiazide use. Hold hydrochlorothiazide. Monitor BMP. DM2 with hyperglycemia. BS monitoring with sliding scale insulin. Hypertension. Patient blood pressure has been borderline low . Hold antihypertensives for now History of Charcot's foot/history of PVD. Patient follows with outpatient vascular surgeon. Local wound care Patient is wheelchair dependent Alcohol use Patient denies history of alcohol withdrawal. CIWA precautions DVT prophylaxis: Heparin SQ. Full code
[2023-03-29] MEDS: NA CHLORIDE 0.9% 1,000 ML IV SCH (17:29)
--- NOTE | 2023-03-29 20:23 | EKG ---
Test Date: 2023-03-28 Test Time: 19:22:36 Aircraft Avionics Technician: MEASUREMENT RESULTS: Intervals: Rate: 83 CT: 160 QRSD: 130 QT: 462 QTc: 542 [place]: P: 50 CT: 160 QRS: 26 T: 51 INTERPRETIVE STATEMENTS: Normal sinus rhythm Right bundle branch block Abnormal ECG Compared to ECG 01/19/2023 09:10:37 T-wave abnormality no longer present Possible ischemia no longer present Electronically Signed On 03-29-23 20:21:43 CDT by Wellington Marcelo
[2023-03-30] MEDS: HEPARIN 5000 UNIT/ML 1 ML VIAL SQ SCH ×2 (01:23→08:16)
[2023-03-30 03:50] LABS: Absolute Lymphocytes (CBC) 1.9 K/uL (0.7-4.9); Hematocrit 22.5 % (39.6-49.0); Lymphocytes % 34.8 % (15.3-44.8); MCV 87.3 fL (80-100); MPV 6.6 fL (7.6-11.3); RBC Red Blood Cell Count 2.58 M/uL (4.33-5.43)
[2023-03-30 03:59] LABS: Phosphorus 2.5 mg/dL (2.5-4.9); Potassium 3.7 mEq/L (3.5-5.1)
[2023-03-30 06:37] LABS: Specific Gravity 1.018 (1.005-1.030); Urine Bacteria None Seen /HPF (<20); Urine Bilirubin NEGATIVE (Negative); Urine Blood 1+ (Negative); Urine Clarity Clear (Clear); Urine Color Yellow (Yellow); Urine Glucose 4+ (Over) (Negative); Urine Mucus Slight /HPF (None Seen); Urine Protein TRACE (Negative); Urine Urobilinogen 3+ (Normal)
--- NOTE | 2023-03-30 06:51 | ECHO ---
HEIGHT: 6 ft 0 in WEIGHT: 241 lb 6.4 oz DATE OF STUDY: 03/29/[address]: Joseph Henriquez MD 2-DIMENSIONAL: YES M.MODE: YES DOPPLER: YES COLOR FLOW: YES TDS: PORTABLE: YES DEFINITY: BUBBLE STUDY: DIAGNOSIS: CONGESTIVE HEART FAILURE CARDIAC HISTORY: CATHERIZATION: SURGERY: PROSTHETIC VALVE: PACEMAKER: MEASUREMENTS (cm) DIASTOLIC (NORMALS) SYSTOLIC (NORMALS) IVSd 1.0 (0.6-1.2) LA Diam 3.8 (1.9-4.0) LVEF 74% LVIDd 5.4 (3.5-5.7) LVIDs 3.1 (2.0-3.5) %FS 43% LVPWd 1.1 (0.6-1.2) Ao Diam 3.3 (2.0-3.7) 2 DIMENSIONAL ASSESSMENT: RIGHT ATRIUM: NORMAL LEFT ATRIUM: NORMAL RIGHT VENTRICLE: NORMAL LEFT VENTRICLE: NORMAL TRICUSPID VALVE: NORMAL MITRAL VALVE: NORMAL PULMONIC VALVE: NORMAL AORTIC VALVE: SCLEROSIS PERICARDIAL EFFUSION: NONE AORTIC ROOT: NORMAL LEFT VENTRICULAR WALL MOTION: NORMAL DOPPLER/COLOR FLOW: NORMAL COMMENTS: 1. NORMAL LEFT VENTRICULAR SIZE AND FUNCTION 2. AORTIC SCLEROSIS 3. NO WALL MOTION ABNORMALITY 4. NO EFFUSION TECHNOLOGIST: JASIEL GONZALEZ
[2023-03-30 08:00] VITALS: BP 122/67; TEMP 97.7
[2023-03-30] MEDS: INSULIN -REGULAR HUMAN 50 UNIT/0.5 ML ML SQ SCH (08:16)
[2023-03-30] MEDS ORDERED: POTASSIUM PHOS IN 0.9 % NACL 15 MMOL/250 ML BAG IV ONE (09:00)
--- NOTE | 2023-03-30 10:16 | P.DS ---
Admission Date: 03/28/23 Discharge Date: 03/30/23 Disposition: ROUTINE DISCHARGE Discharge Condition: FAIR Reason for Admission: Chest pain Brief History of Present Illness: 52-year-old male with a past medical history significant for DM2, hypertension, obesity, chronic pain syndrome, Charcot's foot, anemia, PVD chronic right lower foot wound with a Vac-Pac dressing presents to the emergency room with shortness of breath. He reports shortness of breath at rest today with mild associated chest pain. He reports symptoms worse with exertion problem, relieved by rest. He denies shortness of breath or chest pain on evaluation. He reports associated fatigue over the last week that was worse today. He reports taking Bactrim for right lower foot wound that is being followed by surgery. He denied fever, cough, he reports right lower extremity swelling that is chronic. He is nonweightbearing, uses a electric wheelchair for transfers. He reports alcohol use 3-4 drinks per day, that includes rum and beer. He denies tobacco use. Laboratory evaluation Sodium is 126, potassium is 3.3, acute kidney injury, BUN 18, creatinine 1.71, glucose 212, hypocalcemia 8.0, albumin is low at 2.2, lipase elevated at 76, CBC WBCs are normal, early left shift neutrophils at 74.6, microcytic anemia 8.7, 26.0, COVID, pending, UA pending, troponin normal at 7.5, BNP elevated at 472, EKG NSR w/ Non-specific ST/T Changes and No evidence of ischemia Chest x-ray no acute pulmonary disease. Patient was hospitalized for further management. Hospital Course: Patient admitted to the medical floor and the following medical problems addressed: Chest pain Troponin trended negative. ACS ruled out. Chest pain likely noncardiac. Shortness of breath/generalized weakness Patient with lower extremity edema. Echocardiogram showed normal EF. Acute on chronic kidney disease stage III Serum creatinine improved with IV fluid hydration. He was seen in consultation by nephrology-Dr. Leigh. Patient will follow-up with Dr. Leigh as outpatient Microcytic anemia Unknown etiology. Suspect occult GI bleed. No active bleeding. Patient is on Eliquis for severe peripheral vascular disease. Hemodilution contributed to the drop in hemoglobin. Follow-up as outpatient. GI referral made on discharge. Hyponatremia Improved. Unknown etiology. Differential diagnosis-dehydration versus renal sodium loss secondary to hydrochlorothiazide use. Held hydrochlorothiazide. Monitor BMP. DM2 with hyperglycemia. Managed with insulin sliding scale Hypertension. Patient blood pressure has been borderline low . Held antihypertensives. Patient's symptoms could be related to orthostatic hypotension given his borderline low blood pressure History of Charcot's foot/history of PVD. Patient follows with outpatient vascular surgeon. Local wound care Patient is wheelchair dependent Alcohol use Patient denied history of alcohol withdrawal. No symptoms or signs of alcohol withdrawal during the hospital stay. Vital Signs/Physical Exam: Temp Pulse Resp BP Pulse Ox 97.7 F 79 16 122/67 97 03/30/23 07:58 03/30/23 07:58 03/30/23 07:58 03/30/23 07:58 03/30/23 07:58 General: Alert, In no apparent distress, Oriented x3 HEENT: Mucous membr. moist/pink Neck: JVD not distended Respiratory: Clear to auscultation bilaterally, Normal air movement Cardiovascular: Regular rate/rhythm, Normal S1 S2, Edema (Mild bilateral lower extremity edema.) Gastrointestinal: Normal bowel sounds, Soft and benign, Non-distended, No tenderness Musculoskeletal: Swelling (Right foot Charcot deformity) Laboratory Data at Discharge: WBC 5.50 thou/uL (4.3-10.9) 03/30/23 02:33 Hgb 7.7 g/dL (13.6-17.9) L 03/30/23 02:33 Hct 22.5 % (39.6-49.0) L 03/30/23 02:33 Plt Count 290 thou/uL (152-406) 03/30/23 02:33 PT 16.9 SECONDS (9.5-12.5) H 03/28/23 19:35 INR 1.54 03/28/23 19:35 Sodium 131 mEq/L (136-145) L 03/30/23 02:33 Potassium 3.7 mEq/L (3.5-5.1) 03/30/23 02:33 BUN 12 mg/dL (7-18) 03/30/23 02:33 Creatinine 1.60 mg/dL (0.70-1.30) H 03/30/23 02:33 Glucose 273 mg/dL (74-106) H 03/30/23 02:33 Phosphorus 2.5 mg/dL (2.5-4.9) 03/30/23 02:33 Magnesium 2.0 mg/dL (1.6-2.4) 03/30/23 02:33 Total Bilirubin 0.4 mg/dL (0.2-1.0) 03/28/23 19:35 AST 14 U/L (15-37) L 03/28/23 19:35 ALT < 10 U/L (16-61) L 03/28/23 19:35 Alkaline Phosphatase 137 U/L (45-117) H 03/28/23 19:35 Lipase 76 U/L (13-75) H 03/28/23 19:35 Home Medications: Apixaban [Eliquis] 5 mg PO BID #60 tablet 01/05/22 Diet: AHA Activity: Fall precautions Followup: NONE,NONE [Primary Care Provider] - Taras Jama MD [ACTIVE - CAN ADMIT] - Charles Almonte MD [ASSOCIATE-ACTIVE - CAN ADMIT] - 1-2 Weeks Carmen Leigh MD [ACTIVE - CAN ADMIT] - 1-2 Weeks Time spent managing pt's care (in minutes): 33
--- NOTE | 2023-03-30 12:59 | CON ---
Date of Consultation: 03/29/2023 Reason For Consultation: Elevated BUN and creatinine, fluid management. History Of Present Illness: This is a 52-year-old gentleman with significant past medical history of diabetes complicated with neuropathy, hypertension, obesity, Charcot joint, on wound care, PAD with right lower foot wound, on wound VAC. The patient came to the hospital with chest pain. Primary wor kup showed elevation in BUN and creatinine with creatinine 1.6, GFR of 51. Reviewing the record for the patient early in February, the patient's creatinine is 0.8 with GFR of above 90. The patient denied taking any nonsteroidal. No IV contrast. The patient admitted to the hospital with hydration, kidne y function slightly improve, but still elevated. The patient feeling better. Workup for chest pain was negative. Echocardiogram, normal ejection fraction. Past Medical History: Includes; 1.Diabetes complicated with neuropathy. 2.Hypertension. 3.Hyperlipidemia. 4.Amputation of the right toe. Past Surgical History: Amputation of the right toe, formal femoral stent, wound VAC on the right gemma t with Charcot joint. Family History: Positive for diabetes and hypertension. Social History: Alcohol use. Denied smoking. Denied drugs abuse. Review of Systems: Head and Neck: No red eye. No ear pain. GI: No nausea. No vomiting. : No polyuria. No dysuria. No hematuria. Public Administration Teacher: Not applicable. Respiratory: No shortness of breath. Cardiovascular: Has chest pain. Endocrine: No polydipsia. Skin: No rash. Neuro: Has neuropathy. Musculoskeletal: Has pain on the foot. Home Medications: Include lisinopril, hydrochlorothiazide, Eliquis, and metformin. Physical Examination: General: When I saw the patient; the patient sitting in his wheelchair. Vital Signs: Blood pressure 122/67, pulse of 79, afebrile. Chest: Clear to auscultation. Heart: S1, S2. Regular. Abdomen: Soft, nontender. Extremity: Wound VAC on the right foot. No edema. Neurologic: Alert. No focality. Laboratory Data: WBC 5.5, H and H 7.7/22.5. Sodium 131, potassium 3.7, bicarb 28, BUN 12, creatinin e 1.6, calcium 8.2, phosphorus 2.5, magnesium 2. Assessment And Plan: 1.Acute kidney injury secondary to prerenal secondary to glucose diuresis, on the recovery. The pat ient is going to need workup. The patient is going to be discharged. We will follow up the patient closely as outpatient. I handled card for the patient to follow up in 2 weeks. We are going to need full workup including renal ultrasound with the presence of anemia. The patient is going to need al so serum protein electrophoresis. 2.Hypertension, controlled, optimal with the presence of acute kidney injury. Hold hydrochlorothiaz ty and lisinopril. 3.Diabetes as by primary. 4.Hyponatremia, depletional, superimposed with hydrochlorothiazide. Discontinue hydrochlorothiazide . We will send further workup. 5.Coronary artery disease was ruled out. CHARU/RUTH ANN Voice ID: [id number] Report ID: [id number]
--- NOTE | 2023-03-30 22:29 | CON ---
Date of Consultation: 03/30/2023 Reason For Consultation: Chest pain. History Of Present Illness: A -sxof-vvt male with history of diabetes, hypertension, anemi a, peripheral vascular disease, presented with shortness of breath, and chest discomfort. Symptoms a re worse with exertion. He was observed overnight and cardiac enzymes were done, they were negative, and he had no further episodes of chest pain. Denies having any nausea, vomiting, diarrhea, or diap horesis. Past Medical History: As outlined above in HPI. Medications: Refer to reconciliation sheet for detailed list. Allergies: NO KNOWN DRUG ALLERGIES. Family History: No premature coronary artery disease or cancer. Social History: He does not smoke. Drinks alcohol on a regular basis. Does not use any drugs. Review of Systems: All systems reviewed and they are negative except as mentioned in HPI. Physical Examination: Vital Signs: Reviewed. Head and Neck: Pupils are equal, reactive to light. Intact eye movements. No JVD. No cervical lym phadenopathy. Neck is supple. Thyroid is not enlarged. Lungs: Clear to auscultation bilaterally. No rhonchi, wheezing, or crackles. No accessory muscle u se. Heart: Regular rate and rhythm. No extra sounds. Abdomen: Soft, nontender. Bowel sounds positive. No organomegaly. No masses or hernia. No rigidi ty or rebound. Extremities: No clubbing, cyanosis. Trace edema. Neurologic: Alert, awake, and oriented x3. No focal deficits appreciated. Investigations: BUN is 12, creatinine 1.6, hemoglobin is 7.7. The troponins x4 are negative, and th e NT-proBNP was 363. Assessment/recommendation: 1.Chest pain. No significant EKG abnormalities, and the patient has been chest pain free and then s renata admission, cardiac enzymes are negative. He can be released today and plan for Lexiscan nuclear stress test and an echo as an outpatient. We will arrange for diet. 2.Chronic kidney disease. Creatinine appears to be stable. 3.Hypertension. Blood pressure is controlled with current regimen of medications. SR/MODL Voice ID: [id number] Report ID: [id number]
== END 2023-03-30 11:22 | disposition home or self-care (01) | DRG 683 ==
LOC: ER 18:59 → ERHOLD 21:02 → 2ND 21:38
PROVIDERS: ADMIT Internal Medicine; ATTEND Internal Medicine
DX: N17.9 Acute kidney failure, unspecified (principal); E87.1 Hypo-osmolality and hyponatremia; I12.9 Hypertensive chronic kidney disease with stage 1 through stage 4 chronic kidney disease, or unspecified chronic kidney disease; N18.30 Chronic kidney disease, stage 3 unspecified; E11.22 Type 2 diabetes mellitus with diabetic chronic kidney disease; E11.610 Type 2 diabetes mellitus with diabetic neuropathic arthropathy; E11.51 Type 2 diabetes mellitus with diabetic peripheral angiopathy without gangrene; E11.40 Type 2 diabetes mellitus with diabetic neuropathy, unspecified; E11.65 Type 2 diabetes mellitus with hyperglycemia; E83.51 Hypocalcemia; D63.1 Anemia in chronic kidney disease; D50.9 Iron deficiency anemia, unspecified; G89.4 Chronic pain syndrome; E78.5 Hyperlipidemia, unspecified; E66.9 Obesity, unspecified; Z99.3 Dependence on wheelchair; Z68.32 Body mass index [BMI] 32.0-32.9, adult; Z79.01 Long term (current) use of anticoagulants; Z79.84 Long term (current) use of oral hypoglycemic drugs; Z89.421 Acquired absence of other right toe(s); Z79.899 Other long term (current) drug therapy; Z20.822 Contact with and (suspected) exposure to COVID-19; T50.2X5A Adverse effect of carbonic-anhydrase inhibitors, benzothiadiazides and other diuretics, initial encounter
CPT/HCPCS: 36415; 71045; 80048; 80076; 81001; 82947; 83690; 83735; 83880; 84100; 84484; 85025; 85610; 86850; 86900; 86901; 87635; 87804; 93005; 93306; 93970; 96361; 96374; 96375; 97110; 97162; 97530; 99285; C9113; J1644; J1815; J7030

== ENCOUNTER 2023-04-07 11:47 | Inpatient (IN) | payer BC ==
--- OUTSIDE RECORDS SUMMARY | 2023-04-07 11:55 | XMS REPORT | Continuity of Care Document ---
:1970 Author Organization [facility] t Address [address] [place] [address] [address] [place] [address] Care Team Providers Name Role Phone Arnaud Mckeon MD Primary Care Physician GERARDO MCCALL Attending Clinician Unavailable MARY SWANN Attending Clinician Unavailable ABBEY LARA Attending Clinician Unavailable [facility] Attending Clinician Unavailable LAB90 Attending Clinician Unavailable SABRINA DOWNS Attending Clinician Unavailable PROVIDER, VIDEOVISITNOAlice Attending Clinician Unavailable Corrie Jones MD Attending Clinician [phone] CORRIE JONES Attending Clinician Unavailable MD LAMBERT Attending Clinician Unavailable MAGALIS ERNANDEZ Attending Clinician Unavailable TEETEE HUBBARD Attending Clinician Unavailable LAB39 Attending Clinician Unavailable [id number] Attending Clinician Unavailable Mary Mcdonough Attending Clinician DOLLY TIERNEY Attending Clinician Unavailable EMILY WHITEHEAD Attending Clinician Unavailable MARITZA LEWIS Attending Clinician Unavailable [id number] Attending Clinician Unavailable ROSALBA FERMIN Attending Clinician Unavailable Lars Saavedra DO Attending Clinician KAYE KELLER Attending Clinician Unavailable Armin Mchugh MD Attending Clinician ARMIN MCHUGH Attending Clinician Unavailable Ogunlana DPM, Kaye A Attending Clinician [phone] [facility] Attending Clinician Unavailable Grace December Attending Clinician Nabila Collins MD Attending Clinician Doctor Unassigned, [place] Attending Clinician Unavailable FELICIA MORENO Admitting Clinician Unavailable Payers Payer Name Policy Type Policy Number Effective Date Expiration Date S ource BCBS 2 [id number] 2020 00:00:00 BCBS PPO POS EPO [id number] 2017 00:00:00 CHOICE Problems Condition Condition Condition [...] to nce [facility] secondary 00:00: [facility] nancy DM DM 00 Center Anemia Anemia Disease Active [facility] [place] HTN HTN Disease Active [facility] (hypertens (hypertens 1- Bebe kes ion) ion) 00:00: Medical 00 [place] HLD HLD Disease Active [facility] (hyperlipi (hyperlipi 1- Bebe kes demia) demia) 00:00: Medical 00 [place] MSSA MSSA Disease Active [facility] bacteremia bacteremia 1- Bebe kes 00:00: Medical 00 [place] Diabetes Diabetes Disease Recurre 2020-[address] [facility] [address] [facility]ce [facility] 00[facility] 00 Center Diabetic Diabetic Disease Recurre 2020-[address] [facility] Charcot Charcot nce 2- [facility] foot foot 00:00: Medical 00 [place] Spondylodi Spondylodi Disease Active 2020-[address] scitis scitis 2 [facility] Center Epidural Epidural Disease Active 2020-09 [facility] abscess abscess [facility] Center 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 5-27 Seyb old diabetes diabetes 00:00: - mellitus mellitus 00 Digital Associate a with with l hyperglyce hyperglyce will [...] foot foot 00:00: [place] deformity deformity 00 [facility] Diabetic Diabetic Disease Active Unive [...] foot, 3-06 ity of right right 00:00: [address] Essential Essential Disease Active 2014-09 Uni vers hypertensi hypertensi 0-06 it y of on on 00:00: [address] Erectile Erectile Disease Active 2014-09 Unive rs dysfunctio dysfunctio 0-06 it y of n, n, 00:00: [place] unspecifie unspecifie 00 Me dical d erectile d erectile Br anch dysfunctio dysfunctio n type n type Allergies, Adverse Reactions, Alerts Allergy Allergy Status Severity Reaction(s) Onset Inactive Treating Comm ents Source Name Type Date Date Clinician NO KNOWN Allergy Active [facility] ALLERGIE [facility] NO KNOWN Drug Active Univers ALLERGIE Class ity of S [facility] Family History Family Member Diagnosis Comments Start Date Stop Date Source Natural brother Alcohol abuse [facility] Natural father Cancer [facility] Social History Social Habit Start Date Stop Date Quantity Comments Source History of tobacco Cigarette Smoker [facility] Exposure to Not sure [facility] of SARS-CoV-2 (event) [facility] Tobacco use and 2021-11-03 2021-11-03 Smokeless Sandra Se leoneold - exposure 00:00:00 00:00:00 tobacco non-user External Cigarettes smoked 2021-09-18 2021-09-18 GEORGE [place] current (pack per 00:00:00 00:00:00 [facility] day) - Reported Cigarette 2021-09-18 2021-09-18 GEORGE Henderson pack-years 00:00:00 00:00:00 [facility] Center Alcohol intake 2021-09-18 2021-09-18 Current drinker [facility]:00 of [facility] (finding) Alcohol Comment 2017-06-13 2017-06-13 4-6 beers a day Univ ersity of 00:00:00 00:00:00 [facility] Sex [birth year] At [birth year] GEORGE Clemente 00:00:00 00:00:00 [facility] Smoking Status Start Date Stop Date Source Ex-smoker 2021-11-03 00:00:00 2021-11-03 00:00:00 Sandra tony - External Medications Ordered Filled Start Stop Current Ordering Indication Dosage Frequency Signature Comments Components Source Medication Medication Date Date Medication? Clinician (SIG) Name Name Ondansetron Yes [id number] 8mg Q.[id number] Take 2 Sandra (ZOFRAN) 4 3-27 [id number] tablets (8 Seybold MG oral 00:00: 3D mg total) - TABLET 00 by mouth Externa DISPERSIBLE every 8 l hours as needed for nausea Pantoprazol 2022-0 Yes [id number] 40mg Take 1 Sandra e Sodium 40 3-27 tablet (40 Se ybold MG oral 00:00: mg total) - Tablet 00 by mouth Externa Delayed daily l Response Amoxicillin 0 Yes [id number] 1{tbl} Take 1 Sandra -Pot 3-21 tablet by Seybold Clavulanate 00:00: mouth 2 - 875-125 MG 00 times Externa oral Tablet daily l Amoxicillin 2022-0 2022- No [id number] 1{tbl} Take 1 Sandra -Pot 3-21 -27 tablet by Seybold Clavulanate 00:00: 00:00 mouth 2 - 875-125 MG 00 :00 times Externa oral Tablet daily l Omeprazole 2022-0 Yes [id number] 20mg Take 1 Sandra 20 MG oral 3-10 capsule Seybol d Delayed 00:00: (20 mg - Release 00 total) by Externa Capsule mouth l daily Ondansetron 2022-0 Yes [id number] 4mg Q.[id number] Take 1 Sandra (ZOFRAN) 4 3-10 [id number] tablet (4 Seybold MG oral 00:00: 3D mg total) - TABLET 00 by mouth Externa DISPERSIBLE every 8 l hours as needed for nausea Doxycycline 2022-0 Yes [id number] 100mg Take 1 Sandra Hyclate 100 3-10 tablet Seybol d MG oral 00:00: (100 mg - Tablet 00 total) by Externa mouth 2 l times daily Omeprazole 2022-0 2022- No [id number] 20mg Take 1 Sandra 20 MG oral 3-10 03-27 capsule Seybo ld Delayed 00:00: 00:00 (20 mg - Release 00 :00 total) by Externa Capsule mouth l daily Ondansetron 2022-0 2022- No [id number] 4mg Q.[id number] Take 1 Sandra (ZOFRAN) 4 11-26 [id number] tablet (4 Seybold MG oral 00:00: 00:00 3D mg total) - TABLET 00 :00 by mouth Externa DISPERSIBLE every 8 l hours as needed for nausea Doxycycline 2022- No [id number] 100mg Take 1 Sandra Hyclate 100 11-26 tablet Seybo ld MG oral 00:00: 00:00 (100 mg - Tablet 00 :00 total) by Externa mouth 2 l times daily TRIMETHOPRI 2022- No [id number] 1{tbl} Take 1 Sandra M-SULFAMETH 11-17 tablet by Se ybold OXAZOLE 00:00: 00:00 mouth 2 - (BACTRIM 00 :00 times Externa DS) 800-160 daily for l MG oral 7 days Tablet TRIMETHOPRI 2022- No [id number] 1{tbl} Take 1 Sandra M-SULFAMETH 11-17 tablet by Se ybold OXAZOLE 00:00: 05:59 mouth 2 - (BACTRIM 00 :00 times Externa DS) 800-160 daily for l MG oral 7 days Tablet Calcium-3 Yes [id number] TAKE 2 Shaun sey Fatty Acids 2-21 CAPSULES Seyb old (GNP Fish 00:00: BY MOUTH - Oil) 1000 00 TWICE Externa MG oral DAILY l Capsule Calcium-3 0 Yes [id number] TAKE 2 Shaun sey Fatty Acids 2-21 CAPSULES Seyb old (GNP Fish 00:00: BY MOUTH - Oil) 1000 00 TWICE Externa MG oral DAILY l Capsule Calcium-3 0 Yes [id number] TAKE 2 Shaun sey Fatty Acids 2-21 CAPSULES Seyb old (GNP Fish 00:00: BY MOUTH - Oil) 1000 00 TWICE Externa MG oral DAILY l Capsule Tirzepatide Yes [id number] 5mg Inject 0.5 Sandra (Mounjaro) 2-20 mL (5 mg Seybo ld 5 MG/0.5ML 00:00: total) - subcutaneou 00 into the Exte rna s Solution skin once l Pen-injecto a week r Apixaban Yes [id number] 2.5mg Take 1 Ke lsey (Eliquis) 2-20 tablet Seybold 2.5 MG oral 00:00: (2.5 mg - Tablet 00 total) by Externa mouth 2 l times daily Lisinopril 2022-0 Yes [id number] 20mg Take 1 K elsey 20 MG oral 2-20 tablet (20 Sey bold Tablet 00:00: mg total) - 00 by mouth Externa daily l hydroCHLORO 2022-0 Yes [id number] 25mg Take 1 Sandra thiazide 25 2-20 tablet (25 Se ybold MG oral 00:00: mg total) - Tablet 00 by mouth Externa daily l Calcium-3 2022-0 Yes [id number] 2000mg Take 2 K elsey Fatty Acids 2-20 capsules Seyb old 1000 MG 00:00: (2,000 mg - oral 00 total) by Externa Capsule mouth 2 l times daily Omeprazole 2022-0 Yes [id number] 20mg Take 1 Sandra 20 MG oral 2-20 capsule Seybol d Delayed 00:00: (20 mg - Release 00 total) by Externa Capsule mouth l daily Tirzepatide 2022-0 Yes [id number] 5mg Inject 0.5 Sandra (Mounjaro) 2-20 mL (5 mg Seybo ld 5 MG/0.5ML 00:00: total) - subcutaneou 00 into the Exte rna s Solution skin once l Pen-injecto a week r Apixaban 2022-0 Yes [id number] 2.5mg Take 1 Ke lsey (Eliquis) 2-20 tablet Seybold 2.5 MG oral 00:00: (2.5 mg - Tablet 00 total) by Externa mouth 2 l times daily Lisinopril 2022-0 Yes [id number] 20mg Take 1 K elsey 20 MG oral 2-20 tablet (20 Sey bold Tablet 00:00: mg total) - 00 by mouth Externa daily l hydroCHLORO 3-0 Yes [id number] 25mg Take 1 Sandra thiazide 25 2-20 tablet (25 Se ybold MG oral 00:00: mg total) - Tablet 00 by mouth Externa daily l Omeprazole 3-0 Yes [id number] 20mg Take 1 Sandra 20 MG oral 2-20 capsule Seybol d Delayed 00:00: (20 mg - Release 00 total) by Externa Capsule mouth l daily Tirzepatide 2022-0 Yes [id number] 5mg Inject 0.5 Sandra (Mounjaro) 2-20 mL (5 mg Seybo ld 5 MG/0.5ML 00:00: total) - subcutaneou 00 into the Exte rna s Solution skin once l Pen-injecto a week r Apixaban 2022-0 Yes [id number] 2.5mg Take 1 Ke lsey (Eliquis) 2-20 tablet Seybold 2.5 MG oral 00:00: (2.5 mg - Tablet 00 total) by Externa mouth 2 l times daily Lisinopril 2022-0 Yes [id number] 20mg Take 1 K elsey 20 MG oral 2-20 tablet (20 Sey bold Tablet 00:00: mg total) - 00 by mouth Externa daily l hydroCHLORO 2022-0 Yes [id number] 25mg Take 1 Sandra thiazide 25 2-20 tablet (25 Se ybold MG oral 00:00: mg total) - Tablet 00 by mouth Externa daily l Tirzepatide 2022-0 Yes [id number] 5mg Inject 0.5 Sandra (Mounjaro) 2-20 mL (5 mg Seybo ld 5 MG/0.5ML 00:00: total) - subcutaneou 00 into the Exte rna s Solution skin once l Pen-injecto a week r Apixaban 2022-0 Yes [id number] 2.5mg Take 1 Ke lsey (Eliquis) 2-20 tablet Seybold 2.5 MG oral 00:00: (2.5 mg - Tablet 00 total) by Externa mouth 2 l times daily Lisinopril 3-0 Yes [id number] 20mg Take 1 K elsey 20 MG oral 2-20 tablet (20 Sey bold Tablet 00:00: mg total) - 00 by mouth Externa daily l hydroCHLORO 3-0 Yes [id number] 25mg Take 1 Sandra thiazide 25 2-20 tablet (25 Se ybold MG oral 00:00: mg total) - Tablet 00 by mouth Externa daily l Metformin 2022-0 Yes [id number] TAKE 2 Ke lsey HCl 500 MG 2-03 TABLETS(10 Sey bold oral Tablet 00:00: 00 MG) BY - 00 MOUTH Externa TWICE l DAILY WITH MEALS Metformin 2022-0 Yes [id number] TAKE 2 Ke lsey HCl 500 MG 2-03 TABLETS(10 Sey bold oral Tablet 00:00: 00 MG) BY - 00 MOUTH Externa TWICE l DAILY WITH MEALS Metformin 2022-0 Yes [id number] TAKE 2 Ke lsey HCl 500 MG 2-03 TABLETS(10 Sey bold oral Tablet 00:00: 00 MG) BY - 00 MOUTH Externa TWICE l DAILY WITH MEALS Metformin 2022-0 Yes [id number] TAKE 2 Ke lsey HCl 500 MG 2-03 TABLETS(10 Sey bold oral Tablet 00:00: 00 MG) BY - 00 MOUTH Externa TWICE l DAILY WITH MEALS Calcium-3 2022-0 2023- No [id number] 2000mg Take 2 Sandra Fatty Acids 1-29 02-20 capsules Sey bold 1000 MG 00:00: 00:00 (2,000 mg - oral 00 :00 total) by Externa Capsule mouth 2 l times daily Amlodipine 2022-0 2023- No Take by Shaun sey Besylate 10 -24 -24 mouth Seybol d MG oral 09:02: 00:00 every 24 - Tablet 12 :00 hours Externa l Fluconazole 2022-0 2023- No [id number] fluconazol Sandra 150 MG oral -24 -24 e 150 mg Sey bold Tablet 08:34: 00:00 tablet - 57 :00 Externa l Apixaban 2022-0 Yes [id number] 2.5mg Take 1 Ke lsey (Eliquis) -24 tablet Seybold 2.5 MG oral 00:00: (2.5 mg - Tablet 00 total) by Externa mouth 2 l times daily hydroCHLORO 2022-0 Yes [id number] 25mg Take 1 Sandra thiazide 25 1-24 tablet (25 Se ybold MG oral 00:00: mg total) - Tablet 00 by mouth Externa daily l Metformin 2022-0 Yes [id number] 1000mg Take 2 Sandra HCl 500 MG 1-24 tablets Seybol d oral Tablet 00:00: (1,000 mg - 00 total) by Externa mouth in l the morning and 2 tablets (1,000 mg total) in the evening. Take with meals. Lisinopril 2023-0 Yes [id number] 20mg Take 1 K elsey 20 MG oral 1-24 tablet (20 Sey bold Tablet 00:00: mg total) - 00 by mouth Externa daily l Tirzepatide Yes [id number] 2.5mg Inject 0.5 Sandra (Mounjaro) 1-24 mL (2.5 mg Sey bold 2.5 00:00: total) - MG/0.5ML 00 into the Externa subcutaneou skin once l s Solution a week Pen-injecto r Atorvastati Yes [id number] 40mg Take 1 Sandra n Calcium 1-24 tablet (40 Seyb old 40 MG oral 00:00: mg total) - Tablet 00 by mouth Externa daily l Atorvastati Yes [id number] 40mg Take 1 Sandra n Calcium 1-24 tablet (40 Seyb old 40 MG oral 00:00: mg total) - Tablet 00 by mouth Externa daily l Atorvastati 2022- No [id number] 40mg Take 1 Sandra n Calcium -24 03-01 tablet (40 Sey bold 40 MG oral 00:00: 00:00 mg total) - Tablet 00 :00 by mouth Externa daily l Apixaban 2022- No [id number] 2.5mg Take 1 K elsey (Eliquis) 10-12 02-20 tablet Seybold 2.5 MG oral 00:00: 00:00 (2.5 mg - Tablet 00 :00 total) by Externa mouth 2 l times daily hydroCHLORO 0 2022- No [id number] 25mg Take 1 Sandra thiazide 25 -24 02-20 tablet (25 S eybold MG oral 00:00: 00:00 mg total) - Tablet 00 :00 by mouth Externa daily l Lisinopril 0 2022- No [id number] 20mg Take 1 Sandra 20 MG oral -24 02-20 tablet (20 Se ybold Tablet 00:00: 00:00 mg total) - 00 :00 by mouth Externa daily l Tirzepatide 0 2022- No [id number] 2.5mg Inject 0.5 Sandra (Mounjaro) -24 02-20 mL (2.5 mg Se ybold 2.5 00:00: 00:00 total) - MG/0.5ML 00 :00 into the Externa subcutaneou skin once l s Solution a week Pen-injecto r Atorvastati 2022- No [id number] 40mg Take 1 Sandra n Calcium -24 24 tablet (40 Sey bold 40 MG oral 00:00: 00:00 mg total) - Tablet 00 :00 by mouth Externa daily l Fluconazole Yes [id number] fluconazol Sandra 150 MG oral 4-15 e 150 mg Seyb old Tablet 14:36: tablet 04 Sodium 2021- No [id number] Dakin's Ke lsey Hypochlorit 15 -15 Solution Sey bold e (Dakins, 14:35: 00:00 0.5 % full 44 :00 strength,) 0.5 % apply externally Solution Silver 2021- No [id number] SSD 1 % Ke lsey sulfADIAZIN 15 -15 topical Seyb old E (SSD) 1 % 14:35: 00:00 cream apply 32 :00 APPLY A externally 1/16 INCH Cream THICK LAYER TO ENTIRE BURN AREA TOPICALLY TWICE DAILY hydroCHLORO Yes [id number] TAKE 1 Sandra thiazide 25 4-08 TABLET(25 Sey bold MG oral 00:00: MG) BY Tablet 00 MOUTH DAILY hydroCHLORO 2022- No [id number] TAKE 1 Sandra thiazide 25 4-08 -24 TABLET(25 Se ybold MG oral 00:00: 00:00 MG) BY - Tablet 00 :00 MOUTH Externa DAILY l TRIMETHOPRI 2021- No 1{tbl} Take 1 K elsey M-SULFAMETH 4-05 -16 tablet by Se ybold OXAZOLE 00:00: 04:59 mouth 3 (Bactrim 00 :00 times DS) 800-160 daily for MG oral 10 days Tablet Ceftriaxone 2021- No [id number] 2g K elsey (ROCEPHIN) 2-15 -15 Seybold injection 20:30: 21:10 00 :00 Ceftriaxone 2021- No [id number] 2g 2 g, K elsey (ROCEPHIN) 11-03 intramuscu Se ybold injection 20:30: 21:10 lar, ONCE, 00 :00 1 dose, On Tue11/03/21 at 1430
Fo r IM preparatio n, each 1 gram vial diluted with 2.1 mL 1% lidocaine to make 350 mg/mL. Inject desired dose IM.
Levofloxaci 2021- No [id number] 100mL 100 mL Sandra n in 11-03 every 24 Seybold Dextrose 5 14:17: 00:00 hours % 20 :00 (LEVAQUIN) 500 MG/100ML intravenous Solution Amoxicillin 2021- No [id number] amoxicilli Sandra -Pot 11-03 n 875 Seybold Clavulanate 14:17: 00:00 mg-potassi 875-125 MG 20 :00 um oral Tablet clavulanat e 125 mg tablet TAKE 1 TABLET BY MOUTH EVERY 12 HOURS Sodium Yes [id number] Dakin's Shaun sey Hypochlorit 2-15 Solution Seyb old e (Dakins, 13:16: 0.5 % full 01 strength,) 0.5 % apply externally Solution Silver Yes [id number] SSD 1 % Shaun sey sulfADIAZIN 2-15 topical Seybo ld E (SSD) 1 % 13:16: cream apply 01 APPLY A externally 1/16 INCH Cream THICK LAYER TO ENTIRE BURN AREA TOPICALLY TWICE DAILY Fluconazole Yes [id number] fluconazol Sandra 150 MG oral 2-15 e 150 mg Seyb old Tablet 13:16: tablet 01 TRIMETHOPRI 2021- No [id number] 1{tbl} Take 1 Sandra M-SULFAMETH -07 11-06 tablet by Se ybold OXAZOLE 00:00: 05:59 mouth 2 800-160 MG 00 :00 times oral Tablet daily for 10 days TRIMETHOPRI Yes [id number] sulfametho Sandra M-SULFAMETH 2- xazole 800 Se ybold OXAZOLE 08:50: mg-trimeth 800-160 MG 14 oprim 160 oral Tablet mg tablet TAKE 1 TABLET BY MOUTH EVERY 12 HOURS FOR 5 DAYS Sodium Yes [id number] Dakin's Shaun sey Hypochlorit - Solution Seyb old e (Dakins, 08:50: 0.5 % full 14 strength,) 0.5 % apply externally Solution Silver Yes [id number] SSD 1 % Shaun sey sulfADIAZIN 10-20 topical Seybo ld E (SSD) 1 % 08:50: cream apply 14 APPLY A externally 1/16 INCH Cream THICK LAYER TO ENTIRE BURN AREA TOPICALLY TWICE DAILY Levofloxaci Yes [id number] 100mL 100 mL Sandra n in - every 24 Seybold Dextrose 5 08:50: hours % 14 (LEVAQUIN) 500 MG/100ML intravenous Solution Fluconazole Yes [id number] fluconazol Sandra 150 MG oral 10-20 e 150 mg Seyb old Tablet 08:50: tablet 14 Amoxicillin Yes [id number] amoxicilli Sandra -Pot 10-20 n 875 Seybold Clavulanate 08:50: mg-potassi 875-125 MG 14 um oral Tablet clavulanat e 125 mg tablet TAKE 1 TABLET BY MOUTH EVERY 12 HOURS Cyclobenzap Yes [id number] 10mg Q.[id number] Take 1 Sandra rine HCl 10 10-20 [id number] tablet (10 Seybold MG oral 00:00: 3D mg total) Tablet 00 by mouth 3 times daily as needed for muscle spasms Sennosides Yes [id number] 1{tbl} Take 1 Sandra (Senna) 8.6 10-20 9102 tablet by Sey bold MG oral 00:00: mouth 2 Tablet 00 times daily Metformin Yes [id number] 1000mg Take 2 Sandra HCl 500 MG 2- tablets Seybol d oral Tablet 00:00: (1,000 mg 00 total) by mouth 2 times daily (with meals) Dulaglutide Yes [id number] 1.5mg Inject 1.5 Sandra (Trulicity) 2-01 mg into Seybo ld 1.5 00:00: the skin MG/0.5ML 00 once a subcutaneou week s Solution Pen-injecto r Metformin Yes [id number] 1000mg Take 2 Sandra HCl 500 MG 2-01 tablets Seybol d oral Tablet 00:00: (1,000 mg 00 total) by mouth 2 times daily (with meals) Dulaglutide Yes [id number] 1.5mg Inject 1.5 Sandra (Trulicity) 2-01 mg into Seybo ld 1.5 00:00: the skin MG/0.5ML 00 once a subcutaneou week s Solution Pen-injecto r Cyclobenzap Yes [id number] 10mg Q.[id number] Take 1 Sandra rine HCl 10 10-20 [id number] tablet (10 Seybold MG oral 00:00: 3D mg total) Tablet 00 by mouth 3 times daily as needed for muscle spasms Sennosides Yes [id number] 1{tbl} Take 1 Sandra (Senna) 8.6 10-20 9102 tablet by Sey bold MG oral 00:00: mouth 2 Tablet 00 times daily Metformin Yes [id number] 1000mg Take 2 Sandra HCl 500 MG 2-01 tablets Seybol d oral Tablet 00:00: (1,000 mg 00 total) by mouth 2 times daily (with meals) Dulaglutide Yes [id number] 1.5mg Inject 1.5 Sandra (Trulicity) 2-01 mg into Seybo ld 1.5 00:00: the skin MG/0.5ML 00 once a subcutaneou week s Solution Pen-injecto r Metformin 2021-0 2022- No [id number] 1000mg Take 2 Sandra HCl 500 MG 2-01 01-24 tablets Seybo ld oral Tablet 00:00: 00:00 (1,000 mg - 00 :00 total) by Externa mouth 2 l times daily (with meals) Dulaglutide 2021-0 2022- No [id number] 1.5mg Inject 1.5 Sandra (Trulicity) 2-01 01-24 mg into Seyb old 1.5 00:00: 00:00 the skin - MG/0.5ML 00 :00 once a Externa subcutaneou week l s Solution Pen-injecto r Cyclobenzap 2021-0 2022- No [id number] 10mg Q.[id number] Take 1 Sandra rine HCl 10 2- 04-15 [id number] tablet (10 Seybold MG oral 00:00: 00:00 3D mg total) Tablet 00 :00 by mouth 3 times daily as needed for muscle spasms Sennosides 2021- No [id number] 1{tbl} Take 1 Sandra (Senna) 8.6 10-20 9102 tablet by Se ybold MG oral 00:00: 00:00 mouth 2 Tablet 00 :00 times daily SSD 1 % Yes [id number] APPLY A Ke lsey apply 10-07/16 INCH Seybold externally 00:00: THICK Cream 00 LAYER TO ENTIRE BURN AREA TOPICALLY TWICE DAILY SSD 1 % Yes [id number] APPLY A Ke lsey apply 10-07/16 INCH Seybold externally 00:00: THICK Cream 00 LAYER TO ENTIRE BURN AREA TOPICALLY TWICE DAILY SSD 1 % 2021- No [id number] APPLY A K elsey apply 10-07/16 INCH Seybold externally 00:00: 00:00 THICK Cream 00 :00 LAYER TO ENTIRE BURN AREA TOPICALLY TWICE DAILY dapaglifloz Yes 5mg Take [address] in -07 [facility] 18:24: Medica l mg tablet 37 Center collagenase Yes Santyl [address] [facility] (SantyL) 1-07 unit/gram [facility] 250 units/g 18:24: topical Med ical ointment 37 ointment Center Apply a nickel thick layer (2 mm) to wound daily as directed. lisinopriL Yes lisinopril [facility] (PRINIVIL,Z -07 20 mg [facility] ESTRIL) 20 18:24: tablet Medic al MG tablet 37 Center dapaglifloz 0 Yes 5mg Take [address] in -07 by mouth. [facility] (Farxiga) 5 18:24: Medica l mg tablet 37 Center collagenase 0 Yes Santyl [address] [facility] [address] (SantyL) 1-07 unit/gram [facility] 250 units/g 18:24: topical Med ical ointment 37 ointment Center Apply a nickel thick layer (2 mm) to wound daily as directed. lisinopriL Yes lisinopril [facility] (PRINIVIL,Z 09-25 20 mg [facility] ESTRIL) 20 18:24: tablet Medic al MG tablet 37 Center Sodium 2021- No [id number] 10mL 10 mL as K elsey chloride 09-25 needed Seybold flush 0.9 % 00:00: 05:59 intravenous 00 :00 Solution Heparin 2021- No [id number] 300U 300 units Sandra Sodium Lock 09-25 as needed Se ybold Flush 100 00:00: 05:59 UNIT/ML 00 :00 intravenous Solution Morphine Yes [id number] morphine Sandra Sulfate ER -06 ER 15 mg Seybo ld 15 MG oral 00:00: tablet,ext Tab CR 00 ended release Morphine Yes [id number] morphine Sandra Sulfate ER 1-06 ER 15 mg Seybo ld 15 MG oral 00:00: tablet,ext Tab CR 00 ended release Morphine 2021- No [id number] morphine Sandra Sulfate ER 06 04-15 ER 15 mg Seyb old 15 MG oral 00:00: 00:00 tablet,ext Tab CR 00 :00 ended release ceFAZolin 2021- No [id number] 2g Inject 2 g Sandra Sodium-Dext 09-24 into the Sey bold stefania 2-4 00:00: 05:59 vein GM/100ML-% 00 :00 intravenous Solution levoFLOXaci 2020-09 Yes [id number] TAKE 1 Sandra n 750 MG 12 TABLET BY Seybol d oral Tablet 00:00: MOUTH 00 EVERY DAY UNTIL ALL TAKEN levoFLOXaci 2020-09- No [id number] TAKE 1 Sandra n 750 MG 09-30-15 TABLET BY Seybo ld oral Tablet 00:00: 00:00 MOUTH 00 :00 EVERY DAY UNTIL ALL TAKEN Becaplermin Yes [id number] Apply 1 Sandra (Regranex) 04-16 applicatio Sey bold 0.01 % 00:00: n apply 00 topically externally daily Gel Becaplermin Yes [id number] Apply 1 Sandra (Regranex) 04-16 applicatio Sey bold 0.01 % 00:00: n apply 00 topically externally daily Gel Doxycycline Yes [id number] 100mg Take 1 Sandra Hyclate 100 04-16 tablet Seybol d MG oral 00:00: (100 mg Tablet 00 total) by mouth 2 times daily Becaplermin Yes [id number] Apply 1 Sandra (Regranex) 04-16 applicatio Sey bold 0.01 % 00:00: n apply 00 topically externally daily Gel levoFLOXaci Yes [id number] 500mg Take 1 Sandra n 04-16 tablet Seybold (Levaquin) 00:00: (500 mg 500 MG oral 00 total) by Tablet mouth daily becaplermin Yes Apply [facility]Regranex[facility] 04-16 topically. Baron es 0.01 % gel 00:00: Medical 00 [facility] becaplermin Yes Apply [facility] (Regranex) 04-16 topically. Baron es 0.01 % gel 00:00: Medical 00 [facility] Becaplermin 0 2023- No [id number] Apply 1 Sandra (Regranex) 04-16-24 applicatio Se ybold 0.01 % 00:00: 00:00 n - apply 00 :00 topically Externa externally daily l Gel Doxycycline 0 2021- No [id number] 100mg Take 1 Sandra Hyclate 100 04-16 02-15 tablet Seybo ld MG oral 00:00: 00:00 (100 mg Tablet 00 :00 total) by mouth 2 times daily levoFLOXaci 2020-0 2021- No [id number] 500mg Take 1 Sandra n 04-16 02-15 tablet Seybold (Levaquin) 00:00: 00:00 (500 mg 500 MG oral 00 :00 total) by Tablet mouth daily Insulin Yes [id number] Takes Pamela ey Syringe-Nee 5-27 insulin Seybo ld dle U-100 00:00: BID 30G X 5/16" 00 0.5 ML does not apply Misc Insulin 2020- Yes [id number] Takes Pamela ey Syringe-Nee 5-27 insulin Seybo ld dle U-100 00:00: BID - 30G X 02/01" 00 Externa 0.5 ML does l not apply Misc Insulin 0 Yes [id number] Takes Pamela ey Syringe-Nee 5-27 insulin Seybo ld dle U-100 00:00: BID - 30G X 02/01" 00 Externa 0.5 ML does l not apply Misc Insulin 0 Yes [id number] Takes Pamela ey Syringe-Nee 5-27 insulin Seybo ld dle U-100 00:00: BID - 30G X 02/01" 00 Externa 0.5 ML does l not apply Misc Insulin 0 Yes [id number] Takes [facility]ela ey Syringe-Nee 5-27 insulin Sey[facility] ld dle U-100 00:00: BID - 30G X 02/01" 00 Externa 0.5 ML does l not apply Misc Insulin 0 Yes [id number] Takes Pamela ey Syringe-Nee 5-27 insulin Seybo ld dle U-100 00:00: BID - 30G X 02/01" 00 Externa 0.5 ML does l not apply Misc HUMALOG MIX 0 Yes [id number] 20 units Sandra 75/25 5-27 SQ before Seybold (75-25) 100 00:00: breakfast UNIT/ML SC 00 and 15 SUSP units SQ before supper meal Insulin 0 Yes [id number] Takes Pamela ey Syringe-Nee 5-27 insulin Seybo ld dle U-100 00:00: BID 30G X 02/01" 00 0.5 ML does not apply Misc HUMALOG MIX 0 Yes [id number] 20 units Sandra 75/25 5-27 SQ before Seybold (75-25) 100 00:00: breakfast UNIT/ML SC 00 and 15 SUSP units SQ before supper meal Insulin 0 Yes [id number] Takes Pamela ey Syringe-Nee 5-27 insulin Sey[facility] ld dle U-100 00:00: BID 30G X 02/01" 00 0.5 ML does not apply Misc insulin [address] [facility] syringe-nee 5-27 insulin [facility] U-100 00:00: BID Medical 0.5 mL 30 00 Center gauge x 02/01" Syrg insulin Yes [address] [facility] lispro 5-27 SQ before [facility] protamine-i 00:00: breakfast M edical nsulin 00 and 15 Center lispro units SQ (HumaLOG before Mix supper 75-25,U-100 meal ,Insuln) 100 unit/mL (75-25) Susp injection dulaglutide Yes 1.5mg Inject 1.[address] [facility] (Trulicity) 5-27 mg [facility] 1.5 mg/0.5 00:00: subcutaneo M edical mL PnIj 00 usly. [facility] insulin Yes Takes [facility] syringe-nee 5-27 insulin [facility] dle U-100 00:00: BID Medical 0.5 mL 30 00 Center gauge x /16" Syrg insulin Yes [address] [facility] lispro 5-27 SQ before [facility] protamine-i 00:00: breakfast M edical nsulin 00 and 15 Center lispro units SQ (HumaLOG before Mix supper 75-25,U-100 meal ,Insuln) 100 unit/mL (75-25) Susp injection dulaglutide Yes 1.5mg Inject 1.[address] [facility] (Trulicity) 5-27 mg [facility] 1.5 mg/0.5 00:00: subcutaneo M edical mL PnIj 00 usly. [facility] HUMALOG MIX 2021- No [id number] 20 units Sandra 75/25 5-27 04-15 SQ before Seybold (75-25) 100 00:00: 00:00 breakfast UNIT/ML SC 00 :00 and 15 SUSP units SQ before supper meal Dulaglutide 2021- No [id number] 1.5mg Inject 1.5 [facility] (Trulicity) 5-27 02-01 mg into Seyb old 1.5 00:00: 00:00 the skin MG/0.5ML 00 :00 once a subcutaneou week s Solution Pen-injecto r Lisinopril Yes [id number] 40mg Take 1 K elsey 40 MG oral 4-13 tablet (40 Sey bold Tablet 00:00: mg total) 00 by mouth daily Lisinopril Yes [id number] 40mg Take 1 K elsey 40 MG oral 4-13 tablet (40 Sey bold Tablet 00:00: mg total) 00 by mouth daily Lisinopril Yes [id number] 40mg Take 1 K elsey 40 MG oral 4-13 tablet (40 Sey bold Tablet 00:00: mg total) 00 by mouth daily Lisinopril 0 3- No [id number] 40mg Take 1 Sandra 40 MG oral 4-13 -24 tablet (40 Se ybold Tablet 00:00: 00:00 mg total) - 00 :00 by mouth Externa daily l Metformin 0 2021- No [id number] 1000mg Take 2 Sandra HCl 500 MG 4-13 - tablets Seybo ld oral Tablet 00:00: 00:00 (1,000 mg 00 :00 total) by mouth 2 times daily (with meals) Apixaban Yes [id number] 2.5mg Take 1 [facility] (Eliquis) 4-08 tablet Seybold 2.5 MG oral 00:00: (2.5 mg Tablet 00 total) by mouth 2 times daily Sildenafil Yes [id number] 100mg Take 1 Sandra Citrate 100 4-08 tablet Seybol d MG oral 00:00: (100 mg Tablet 00 total) by mouth as needed for erectile dysfunctio n Atorvastati Yes [id number] 40mg Take 1 Sandra n Calcium 4-08 tablet (40 Seyb old 40 MG oral 00:00: mg total) Tablet 00 by mouth daily Sildenafil Yes [id number] 100mg Take 1 [facility] Citrate 100 4-08 tablet Seybol d MG oral 00:00: (100 mg - Tablet 00 total) by Externa mouth as l needed for erectile dysfunctio n Sildenafil Yes [id number] 100mg Take 1 [facility] Citrate 100 4-08 tablet Seybol d MG oral 00:00: (100 mg - Tablet 00 total) by Externa mouth as l needed for erectile dysfunctio n Sildenafil Yes [id number] 100mg Take 1 Sandra Citrate 100 4-08 tablet Seybol d MG oral 00:00: (100 mg - Tablet 00 total) by Externa mouth as l needed for erectile dysfunctio n Sildenafil Yes [id number] 100mg Take 1 Sandra Citrate 100 4-08 tablet Seybol d MG oral 00:00: (100 mg - Tablet 00 total) by Externa mouth as l needed for erectile dysfunctio n hydroCHLORO Yes [id number] 25mg Take 1 Sandra thiazide 25 4-08 tablet (25 Se ybold MG oral 00:00: mg total) Tablet 00 by mouth daily Sildenafil Yes [id number] 100mg Take 1 Sandra Citrate 100 4-08 tablet Seybol d MG oral 00:00: (100 mg - Tablet 00 total) by Externa mouth as l needed for erectile dysfunctio n Apixaban Yes [id number] 2.5mg Take 1 [facility] (Eliquis) 4-08 tablet Seybold 2.5 MG oral 00:00: (2.5 mg Tablet 00 total) by mouth 2 times daily Sildenafil Yes [id number] 100mg Take 1 Sandra Citrate 100 4-08 tablet Seybol d MG oral 00:00: (100 mg Tablet 00 total) by mouth as needed for erectile dysfunctio n Atorvastati Yes [id number] 40mg Take 1 Sandra n Calcium 4-08 tablet (40 Seyb old 40 MG oral 00:00: mg total) Tablet 00 by mouth daily Collagenase Yes [id number] Apply 1 Sandra (Santyl) 4-08 applicatio Seybo ld 250 UNIT/GM 00:00: n apply 00 topically externally daily Ointment hydroCHLORO Yes [id number] 25mg Take 1 Sandra thiazide 25 4-08 tablet (25 Se ybold MG oral 00:00: mg total) Tablet 00 by mouth daily Apixaban Yes [id number] 2.5mg Take 1 [facility] (Eliquis) 4-08 tablet Seybold 2.5 MG oral 00:00: (2.5 mg Tablet 00 total) by mouth 2 times daily Sildenafil Yes [id number] 100mg Take 1 Sandra Citrate 100 4-08 tablet Seybol d MG oral 00:00: (100 mg Tablet 00 total) by mouth as needed for erectile dysfunctio n Atorvastati Yes [id number] 40mg Take 1 Sandra n Calcium 4-08 tablet (40 Seyb old 40 MG oral 00:00: mg total) Tablet 00 by mouth daily Collagenase Yes [id number] Apply 1 Sandra (Santyl) 08 applicatio Seybo ld 250 UNIT/GM 00:00: n apply 00 topically externally daily Ointment atorvastati Yes atorvastat [facility] (LIPITOR) 4-08 in 40 mg Luke s 40 MG 00:00: tablet Medical tablet 00 [facility] sildenafiL Yes 100mg Take [address] [facility] [address] [facility] (VIAGRA) 4-08 mg by [facility] 100 MG 00:00: mouth. Medical tablet 00 [facility] sildenafiL Yes 100mg Take [address] [facility] [address] (VIAGRA) 4-08 mg by [facility] 100 MG 00:00: mouth. Medical tablet 00 [facility] atorvastati Yes atorvastat [facility] (LIPITOR) 4-08 in 40 mg Luke s 40 MG 00:00: tablet Medical tablet 00 [facility] Apixaban 0 2022- No [id number] 2.5mg Take 1 K elsey (Eliquis) 12-25-24 tablet Seybold 2.5 MG oral 00:00: 00:00 (2.5 mg - Tablet 00 :00 total) by Externa mouth 2 l times daily Atorvastati 2022- No [id number] 40mg Take 1 Sandra n Calcium -04 19-24 tablet (40 Sey bold 40 MG oral 00:00: 00:00 mg total) - Tablet 00 :00 by mouth Externa daily l Collagenase 0 2021- No [id number] Apply 1 Sandra (Santyl) 12-25 04-15 applicatio Seyb old 250 UNIT/GM 00:00: 00:00 n apply 00 :00 topically externally daily Ointment dapaglifloz 2019-09 Yes 5mg Take 5 mg U nivers in -23 by mouth. ity of (FARXIGA) 5 19:20: [place] mg tablet 18 Medical Branch dapaglifloz 2019-09 Yes 5mg Take 5 mg U nivers in -23 by mouth. ity of (FARXIGA) 5 19:20: [...] Univers (NS) 0-18 ity of injection 17:12: [place] [address] [place] [address] NaCl 0.9% 2016-09 Yes 10mL Univers (NS) 0-18 ity of injection 17:12: [place] [address] [place] [address] NaCl 0.9% 2016-09 Yes 10mL Univers (NS) 0-18 ity of injection 17:12: [place] [address] [place] [address] NaCl 0.9% 2016-09 Yes 10mL Univers (NS) 0-18 ity of injection 17:12: [place] [address] [place] [address] NaCl 0.9% 2016-09 Yes 10mL Univers (NS) 0-18 ity of injection 17:12: [place] [address] [place] [address] NaCl 0.9% 2016-09 Yes 10mL Univers (NS) 0-18 ity of injection 17:12: [place] [address] [place] [address] NaCl 0.9% 2016-09 Yes 10mL Univers (NS) 0-18 ity of injection 17:12: [place] [address] [place] [address] NaCl 0.9% 2016-09 Yes 10mL Univers (NS) 0-18 ity of injection 17:12: [place] [address] [place] [address] NaCl 0.9% 2016-09 Yes 10mL Univers (NS) 0-18 ity of injection 17:12: [place] [address] [place] [address] NaCl 0.9% 2016-09 Yes 10mL Univers (NS) 0-18 ity of injection 17:12: [place] [address] [place] [address] NaCl 0.9% 2016-09 Yes 10mL Univers (NS) 0-18 ity of injection 17:12: [address] amLODIPine 2016-09 Yes [id number] 10mg Take 1 U nivers 10 mg 0-16 tablet by ity of tablet 00:00: mouth [place] 00 daily. Medical Branch insulin 2016-09 Yes [id number] 40U inject 40 U nivers glargine 0-16 Units ity of 100 unit/mL 00:00: [place] injection 00 skin at Medical bedtime. Branch blood sugar 2016-09 Yes [id number] Use TID, Univers diagnostic 0-16 DX E11.9 ity o f strip 00:00: (Brand [place] 00 upon [facility] Branch approval) lancets-blo 2016-09 Yes [id number] 1{each} 1 Each 2 Univers od glucose 0-16 (two) ity of strips 30 00:00: times [place] gauge Cmpk 00 daily. Medical Branch Blood-Gluco 2016-09 Yes [id number] Use TID, Univers se Meter 0-16 DX E11.9 ity of Kit 00:00: ([address] approval) sildenafil 2016-09 Yes [id number] Take 1 Tab Univers 25 mg 0-16 PO Daily 1 ity of tablet 00:00: hr (range: [place] 00 30 min - 4 Medical hrs) Branch before sexual activity as needed metFORMIN 2016-09 Yes [id number] 1000mg Take 2 [facility] 500 mg 0-16 tablets by ity of tablet 00:00: mouth 2 [place] 00 (two) Medical times Branch daily with meals. hydroCHLORO 2016-09 Yes [id number] 25mg Take 1 [facility] thiazide 25 0-16 tablet by ity of mg tablet 00:00: mouth [place] 00 daily. Medical Branch lisinopril 2016-09 Yes [id number] 5mg Take 1 U nivers 5 mg tablet 0-16 tablet by ity of 00:00: mouth [place] 00 daily. Medical Branch amLODIPine 2016-09 Yes [id number] 10mg Take 1 U nivers 10 mg 0-16 tablet by ity of tablet 00:00: mouth [place] 00 daily. Medical Branch insulin 2016-09 Yes [id number] 40U inject 40 U nivers glargine 0-16 Units ity of 100 unit/mL 00:00: [place] injection 00 skin at Medical bedtime. Branch blood sugar 2016-09 Yes [id number] Use TID, Univers diagnostic 0-16 DX E11.9 ity o f strip 00:00: ([address] approval) lancets-blo 2016-09 Yes [id number] 1{each} 1 Each 2 Univers od glucose 0-16 (two) ity of strips 30 00:00: times [place] gauge Cmpk 00 daily. Medical Branch Blood-Gluco 2016-09 Yes [id number] Use TID, Univers se Meter 0-16 DX E11.9 ity of Kit 00:00: ([address] Branch approval) sildenafil 2016-09 Yes [id number] Take 1 Tab Univers 25 mg 0-16 PO Daily 1 ity of tablet 00:00: hr (range: [place] 00 30 min - 4 Medical hrs) Branch before sexual activity as needed metFORMIN 2016-09 Yes [id number] 1000mg Take 2 [facility] 500 mg 0-16 tablets by ity of tablet 00:00: mouth 2 [place] 00 (two) Medical times Branch daily with meals. hydroCHLORO 2016-09 Yes [id number] 25mg Take 1 [facility] thiazide 25 0-16 tablet by ity of mg tablet 00:00: mouth [place] 00 daily. Medical Branch lisinopril 2016-09 Yes [id number] 5mg Take 1 U nivers 5 mg tablet 0-16 tablet by ity of 00:00: mouth [place] 00 daily. Medical Branch amLODIPine 2016-09 Yes [id number] 10mg Take 1 U nivers 10 mg 0-16 tablet by ity of tablet 00:00: mouth [place] 00 daily. Medical Branch insulin 2016-09 Yes [id number] 40U inject 40 U nivers glargine 0-16 Units ity of 100 unit/mL 00:00: [place] injection 00 skin at Medical bedtime. Branch blood sugar 2016-09 Yes [id number] Use TID, Univers diagnostic 0-16 DX E11.9 ity o f strip 00:00: ([address] approval) lancets-blo 2016-09 Yes [id number] 1{each} 1 Each 2 Univers od glucose 0-16 (two) ity of strips 30 00:00: times [place] gauge Cmpk 00 daily. Medical Branch Blood-Gluco 2016-09 Yes [id number] Use TID, Univers se Meter 0-16 DX E11.9 ity of Kit 00:00: ([address] approval) sildenafil 2016-09 Yes [id number] Take 1 Tab [facility] 25 mg 0-16 PO Daily 1 ity of tablet 00:00: hr (range: [place] 00 30 min - 4 Medical hrs) Branch before sexual activity as needed metFORMIN 2016-09 Yes [id number] 1000mg Take 2 [facility] 500 mg 0-16 tablets by ity of tablet 00:00: mouth 2 [place] 00 (two) Medical times Branch daily with meals. hydroCHLORO 2016-09 Yes [id number] 25mg Take 1 Univers thiazide 25 0-16 tablet by ity of mg tablet 00:00: mouth [place] 00 daily. Medical Branch lisinopril 2016-09 Yes [id number] 5mg Take 1 U nivers 5 mg tablet 0-16 tablet by ity of 00:00: mouth [place] 00 daily. Medical Branch amLODIPine 2016-09 Yes [id number] 10mg Take 1 U nivers 10 mg 0-16 tablet by ity of tablet 00:00: mouth [place] 00 daily. Medical Branch insulin 2016-09 Yes [id number] 40U inject 40 U nivers glargine 0-16 Units ity of 100 unit/mL 00:00: [place] injection 00 skin at Medical bedtime. Branch blood sugar 2016-09 Yes [id number] Use TID, Univers diagnostic 0-16 DX E11.9 ity o f strip 00:00: ([place] [address] upon [facility] insurance Branch approval) lancets-blo 2016-09 Yes [id number] 1{each} 1 Each 2 Univers od glucose 0-16 (two) ity of strips 30 00:00: times [place] gauge Cmpk 00 daily. Medical Branch Blood-Gluco 2016-09 Yes [id number] Use TID, Univers se Meter 0-16 DX E11.9 ity of Kit 00:00: ([address] approval) sildenafil 2016-09 Yes [id number] Take 1 Tab Univers 25 mg 0-16 PO Daily 1 ity of tablet 00:00: hr (range: [place] 00 30 min - 4 Medical hrs) Branch before sexual activity as needed metFORMIN 2016-09 Yes [id number] 1000mg Take 2 Univers 500 mg 0-16 tablets by ity of tablet 00:00: mouth 2 [place] 00 (two) Medical times Branch daily with meals. hydroCHLORO 2016-09 Yes [id number] 25mg Take 1 Univers thiazide 25 0-16 tablet by ity of mg tablet 00:00: mouth [place] 00 daily. Medical Branch lisinopril 2016-09 Yes [id number] 5mg Take 1 U nivers 5 mg tablet 0-16 tablet by ity of 00:00: mouth [place] 00 daily. Medical Branch amLODIPine 2016-09 Yes [id number] 10mg Take 1 U nivers 10 mg 0-16 tablet by ity of tablet 00:00: mouth [place] 00 daily. Medical Branch insulin 2016-09 Yes [id number] 40U inject 40 U nivers glargine 0-16 Units ity of 100 unit/mL 00:00: [place] injection 00 skin at Medical bedtime. Branch blood sugar 2016-09 Yes [id number] Use TID, Univers diagnostic 0-16 DX E11.9 ity o f strip 00:00: ([place] [address] upon Medical insurance Branch approval) lancets-blo 2016-09 Yes [id number] 1{each} 1 Each 2 Univers od glucose 0-16 (two) ity of strips 30 00:00: times [place] gauge Cmpk 00 daily. Medical Branch sildenafil 2016-09 Yes [id number] Take 1 Tab Univers 25 mg 0-16 PO Daily 1 ity of tablet 00:00: hr (range: [place] 00 30 min - 4 Medical hrs) Branch before sexual activity as needed Blood-Gluco 2016-09 Yes [id number] Use TID, Univers se Meter 0-16 DX E11.9 ity of Kit 00:00: ([place] [address] upon [facility] Branch approval) sildenafil 2016-09 Yes [id number] Take 1 Tab Univers 25 mg 0-16 PO Daily 1 ity of tablet 00:00: hr (range: [place] 00 30 min - 4 Medical hrs) Branch before sexual activity as needed metFORMIN 2016-09 Yes [id number] 1000mg Take 2 Univers 500 mg 0-16 tablets by ity of tablet 00:00: mouth 2 [place] 00 (two) Medical times Branch daily with meals. metFORMIN 2016-09 Yes [id number] 1000mg Take 2 Univers 500 mg 0-16 tablets by ity of tablet 00:00: mouth 2 [place] 00 (two) Medical times Branch daily with meals. hydroCHLORO 2016-09 Yes [id number] 25mg Take 1 Univers thiazide 25 0-16 tablet by ity of mg tablet 00:00: mouth [place] 00 daily. Medical Branch lisinopril 2016-09 Yes [id number] 5mg Take 1 U nivers 5 mg tablet 0-16 tablet by ity of 00:00: mouth [place] 00 daily. Medical Branch amLODIPine 2016-09 Yes [id number] 10mg Take 1 U nivers 10 mg 0-16 tablet by ity of tablet 00:00: mouth [place] 00 daily. Medical Branch insulin 2016-09 Yes [id number] 40U inject 40 U nivers glargine 0-16 Units ity of 100 unit/mL 00:00: under the [place] injection 00 skin at Medical bedtime. Branch blood sugar 2016-09 Yes [id number] Use TID, Univers diagnostic 0-16 DX E11.9 ity o f strip 00:00: ([address] approval) lancets-blo 2016-09 Yes [id number] 1{each} 1 Each 2 Univers od glucose 0-16 (two) ity of strips 30 00:00: times [place] gauge Cmpk 00 daily. Medical Branch Blood-Gluco 2016-09 Yes [id number] Use TID, Univers se Meter 0-16 DX E11.9 ity of Kit 00:00: ([facility] upon [facility] approval) hydroCHLORO 2016-09 Yes [id number] 25mg Take 1 Univers thiazide 25 0-16 tablet by ity of mg tablet 00:00: mouth [place] 00 daily. Medical Branch sildenafil 2016-09 Yes [id number] Take 1 Tab Univers 25 mg 0-16 PO Daily 1 ity of tablet 00:00: hr (range: [place] 00 30 min - 4 Medical hrs) Branch before sexual activity as needed metFORMIN 2016-09 Yes [id number] 1000mg Take 2 Univers 500 mg 0-16 tablets by ity of tablet 00:00: mouth 2 [place] 00 (two) Medical times Branch daily with meals. hydroCHLORO 2016-09 Yes [id number] 25mg Take 1 Univers thiazide 25 0-16 tablet by ity of mg tablet 00:00: mouth [place] 00 daily. Medical Branch lisinopril 2016-09 Yes [id number] 5mg Take 1 U nivers 5 mg tablet 0-16 tablet by ity of 00:00: mouth [place] 00 daily. Medical Branch lisinopril 2016-09 Yes [id number] 5mg Take 1 U nivers 5 mg tablet 0-16 tablet by ity of 00:00: mouth [place] 00 daily. Medical Branch amLODIPine 2016-09 Yes [id number] 10mg Take 1 U nivers 10 mg 0-16 tablet by ity of tablet 00:00: mouth [place] 00 daily. Medical Branch insulin 2016-09 Yes [id number] 40U inject 40 U nivers glargine 0-16 Units ity of 100 unit/mL 00:00: under the [place] injection 00 skin at Medical bedtime. Branch blood sugar 2016-09 Yes [id number] Use TID, Univers diagnostic 0-16 DX E11.9 ity o f strip 00:00: ([facility] upon [facility] Branch approval) lancets-blo 2016-09 Yes [id number] 1{each} 1 Each 2 Univers od glucose 0-16 (two) ity of strips 30 00:00: times [place] gauge Cmpk 00 daily. Medical Branch Blood-Gluco 2016-09 Yes [id number] Use TID, Univers se Meter 0-16 DX E11.9 ity of Kit 00:00: ([address] approval) amLODIPine 2016-09 Yes [id number] 10mg Take 1 U nivers 10 mg 0-16 tablet by ity of tablet 00:00: mouth [place] 00 daily. Medical Branch sildenafil 2016-09 Yes [id number] Take 1 Tab Univers 25 mg 0-16 PO Daily 1 ity of tablet 00:00: hr (range: [place] 00 30 min - 4 Medical hrs) Branch before sexual activity as needed metFORMIN 2016-09 Yes [id number] 1000mg Take 2 Univers 500 mg 0-16 tablets by ity of tablet 00:00: mouth 2 [place] 00 (two) Medical times Branch daily with meals. hydroCHLORO 2016-09 Yes [id number] 25mg Take 1 Univers thiazide 25 0-16 tablet by ity of mg tablet 00:00: mouth [place] 00 daily. Medical Branch lisinopril 2016-09 Yes [id number] 5mg Take 1 U nivers 5 mg tablet 0-16 tablet by ity of 00:00: mouth [place] 00 daily. Medical Branch amLODIPine 2016-09 Yes [id number] 10mg Take 1 U nivers 10 mg 0-16 tablet by ity of tablet 00:00: mouth [place] 00 daily. Medical Branch insulin 2016-09 Yes [id number] 40U inject 40 U nivers glargine 0-16 Units ity of 100 unit/mL 00:00: under the [place] injection 00 skin at Medical bedtime. Branch insulin 2016-09 Yes [id number] 40U inject 40 U nivers glargine 0-16 Units ity of 100 unit/mL 00:00: under the [place] injection 00 skin at Medical bedtime. Branch blood sugar 2016-09 Yes [id number] Use TID, Univers diagnostic 0-16 DX E11.9 ity o f strip 00:00: ([address] approval) lancets-blo 2016-09 Yes [id number] 1{each} 1 Each 2 Univers od glucose 0-16 (two) ity of strips 30 00:00: times [place] gauge Cmpk 00 daily. Medical Branch Blood-Gluco 2016-09 Yes [id number] Use TID, Univers se Meter 0-16 DX E11.9 ity of Kit 00:00: ([address] approval) blood sugar 2016-09 Yes [id number] Use TID, Univers diagnostic 0-16 DX E11.9 ity o f strip 00:00: ([facility] upon [facility] approval) sildenafil 2016-09 Yes [id number] Take 1 Tab Univers 25 mg 0-16 PO Daily 1 ity of tablet 00:00: hr (range: [place] 00 30 min - 4 Medical hrs) Branch before sexual activity as needed metFORMIN 2016-09 Yes [id number] 1000mg Take 2 Univers 500 mg 0-16 tablets by ity of tablet 00:00: mouth 2 [place] 00 (two) Medical times Branch daily with meals. hydroCHLORO 2016-09 Yes [id number] 25mg Take 1 Univers thiazide 25 0-16 tablet by ity of mg tablet 00:00: mouth [place] 00 daily. [facility] Branch lisinopril 2016-09 Yes [id number] 5mg Take 1 U nivers 5 mg tablet 0-16 tablet by ity of 00:00: mouth [place] 00 daily. [facility] Branch amLODIPine 2016-09 Yes [id number] 10mg Take 1 U nivers 10 mg 0-16 tablet by ity of tablet 00:00: mouth [place] 00 daily. [facility] Branch insulin 2016-09 Yes [id number] 40U inject 40 U nivers glargine 0-16 Units ity of 100 unit/mL 00:00: under the [place] injection 00 skin at Medical bedtime. [place] blood sugar 2016-09 Yes [id number] Use TID, Univers diagnostic 0-16 DX E11.9 ity o f strip 00:00: ([facility] upon [facility] approval) lancets-blo 2016-09 Yes [id number] 1{each} 1 Each 2 Univers od glucose 0-16 (two) ity of strips 30 00:00: times [place] gauge Cmpk 00 daily. [facility] Branch Blood-Gluco 2016-09 Yes [id number] Use TID, Univers se Meter 0-16 DX E11.9 ity of Kit 00:00: ([facility] approval) lancets-blo 2016-09 Yes [id number] 1{each} 1 Each 2 Univers od glucose 0-16 (two) ity of strips 30 00:00: times [place] gauge Cmpk 00 daily. [facility] Blood-Gluco 2016-09 Yes [id number] Use TID, Univers se Meter 0-16 DX E11.9 ity of Kit 00:00: ([address] approval) sildenafil 2016-09 Yes [id number] Take 1 Tab Univers 25 mg 0-16 PO Daily 1 ity of tablet 00:00: hr (range: [place] 00 30 min - 4 Medical hrs) Branch before sexual activity as needed metFORMIN 2016-09 Yes [id number] 1000mg Take 2 Univers 500 mg 0-16 tablets by ity of tablet 00:00: mouth 2 [place] 00 (two) Medical times Branch daily with meals. hydroCHLORO 2016-09 Yes [id number] 25mg Take 1 Univers thiazide 25 0-16 tablet by ity of mg tablet 00:00: mouth [place] 00 daily. Medical Branch lisinopril 2016-09 Yes [id number] 5mg Take 1 U nivers 5 mg tablet 0-16 tablet by ity of 00:00: mouth [place] 00 daily. Medical Branch amLODIPine 2016-09 Yes [id number] 10mg Take 1 U nivers 10 mg 0-16 tablet by ity of tablet 00:00: mouth [place] 00 daily. Medical Branch insulin 2016-09 Yes [id number] 40U inject 40 U nivers glargine 0-16 Units ity of 100 unit/mL 00:00: under the [place] injection 00 skin at Medical bedtime. Branch blood sugar 2016-09 Yes [id number] Use TID, Univers diagnostic 0-16 DX E11.9 ity o f strip 00:00: ([address] Branch approval) lancets-blo 2016-09 Yes [id number] 1{each} 1 Each 2 Univers od glucose 0-16 (two) ity of strips 30 00:00: times [place] gauge Cmpk 00 daily. Medical Branch Blood-Gluco 2016-09 Yes [id number] Use TID, Univers se Meter 0-16 DX E11.9 ity of Kit 00:00: ([address] Branch approval) sildenafil 2016-09 Yes [id number] Take 1 Tab Univers 25 mg 0-16 PO Daily 1 ity of tablet 00:00: hr (range: [place] 00 30 min - 4 Medical hrs) Branch before sexual activity as needed metFORMIN 2016-09 Yes [id number] 1000mg Take 2 [facility] 500 mg 0-16 tablets by ity of tablet 00:00: mouth 2 [place] 00 (two) Medical times Branch daily with meals. hydroCHLORO 2016-09 Yes [id number] 25mg Take 1 Univers thiazide 25 0-16 tablet by ity of mg tablet 00:00: mouth [place] 00 daily. Medical Branch lisinopril 2016-09 Yes [id number] 5mg Take 1 U nivers 5 mg tablet 0-16 tablet by ity of 00:00: mouth [place] 00 daily. Medical Branch amLODIPine 2016-09 Yes [id number] 10mg Take 1 U nivers 10 mg 0-16 tablet by ity of tablet 00:00: mouth [place] 00 daily. Medical Branch insulin 2016-09 Yes [id number] 40U inject 40 U nivers glargine 0-16 Units ity of 100 unit/mL 00:00: under the [place] injection 00 skin at Medical bedtime. Branch blood sugar 2016-09 Yes [id number] Use TID, Univers diagnostic 0-16 DX E11.9 ity o f strip 00:00: ([place] [address] upon [facility] Branch approval) lancets-blo 2016-09 Yes [id number] 1{each} 1 Each 2 Univers od glucose 0-16 (two) ity of strips 30 00:00: times [place] gauge Cmpk 00 daily. Medical Branch Blood-Gluco 2016-09 Yes [id number] Use TID, Univers se Meter 0-16 DX E11.9 ity of Kit 00:00: ([place] [address] upon [facility] approval) sildenafil 2016-09 Yes [id number] Take 1 Tab Univers 25 mg 0-16 PO Daily 1 ity of tablet 00:00: hr (range: [place] 00 30 min - 4 Medical hrs) Branch before sexual activity as needed metFORMIN 2016-09 Yes [id number] 1000mg Take 2 Univers 500 mg 0-16 tablets by ity of tablet 00:00: mouth 2 [place] 00 (two) Medical times Branch daily with meals. hydroCHLORO 2016-09 Yes [id number] 25mg Take 1 Univers thiazide 25 0-16 tablet by ity of mg tablet 00:00: mouth [place] 00 daily. Medical Branch lisinopril 2016-09 Yes [id number] 5mg Take 1 U nivers 5 mg tablet 0-16 tablet by ity of 00:00: mouth [place] 00 daily. Medical Branch amLODIPine 2016-09 Yes [id number] 10mg Take 1 U nivers 10 mg 0-16 tablet by ity of tablet 00:00: mouth [place] 00 daily. Medical Branch insulin 2016-09 Yes [id number] 40U inject 40 U nivers glargine 0-16 Units ity of 100 unit/mL 00:00: [place] injection 00 skin at Medical bedtime. Branch blood sugar 2016-09 Yes [id number] Use TID, Univers diagnostic 0-16 DX E11.9 ity o f strip 00:00: ([place] [address] upon [facility] approval) lancets-blo 2016-09 Yes [id number] 1{each} 1 Each 2 Univers od glucose 0-16 (two) ity of strips 30 00:00: times [place] gauge Cmpk 00 daily. [facility] Branch Blood-Gluco 2016-09 Yes [id number] Use TID, Univers se Meter 0-16 DX E11.9 ity of Kit 00:00: ([place] [address] upon [facility] approval) sildenafil 2016-09 Yes [id number] Take 1 Tab Univers 25 mg 0-16 PO Daily 1 ity of tablet 00:00: hr (range: [place] 00 30 min - 4 Medical hrs) Branch before sexual activity as needed metFORMIN 2016-09 Yes [id number] 1000mg Take 2 Univers 500 mg 0-16 tablets by ity of tablet 00:00: mouth 2 [place] 00 (two) Medical times Branch daily with meals. hydroCHLORO 2016-09 Yes [id number] 25mg Take 1 Univers thiazide 25 0-16 tablet by ity of mg tablet 00:00: mouth [place] 00 daily. [facility] Branch lisinopril 2016-09 Yes [id number] 5mg Take 1 U nivers 5 mg tablet 0-16 tablet by ity of 00:00: mouth [place] 00 daily. [facility] Immunizations Ordered Immunization Filled Immunization Date Status Commen ts Source Name Name Influenza, 2021-08-31 Completed Sandra Seybold Injectable, Mdck, 00:00:00 Quadrivalent With Preservatie Influenza, 2021-08-31 Completed Sandra Seybold Injectable, Mdck, 00:00:00 Quadrivalent With Preservatie Influenza, 2021-08-31 Completed Sandra Pinaybold - Injectable, Mdck, 00:00:00 Externa l Quadrivalent With Preservatie Influenza, 2021-08-31 Completed Sandra Seybold - Injectable, Mdck, 00:00:00 Externa l Quadrivalent With Preservatie Influenza, 2021-08-31 Completed Sandra Pinaybold - Injectable, Mdck, 00:00:00 Externa l Quadrivalent With Preservatie Influenza, 2021-08-31 Completed Sandra Argueta - Injectable, Mdck, 00:00:00 Externa l Quadrivalent With Preservatie Influenza, 2021-08-31 Completed Sandra Argueta - Injectable, Mdck, 00:00:00 Externa l Quadrivalent With Preservatie Influenza, 2021-08-31 Completed Sandra Argueta Injectable, Mdck, 00:00:00 Quadrivalent With Preservatie Covid-19 Vaccine 2020-12-03 Completed Sandra tony Moderna [...] Protein, Pf Covid-19 Vaccine 2020-12-03 Completed Sandra S eybold - Moderna (Spikevax), 00:00:00 Exter nal [...] 100 Mcg/0.5ml,IM Covid-19 Vaccine 2020-12-03 Completed Sandra Del Castillo eybold (Moderna), Mrna-lnp, 00:00:00 [place] Protein, Pf, 100 Mcg/0.5ml,IM Influenza Virus 2020-06-11 Completed Universit y of Vaccine 00:00:00 [facility] Influenza Virus 2020-06-11 Completed Universit y of Vaccine 00:00:00 [facility] Influenza Virus 2020-06-11 Completed Universit y of Vaccine 00:00:00 [facility] Influenza Virus 2020-06-11 Completed Universit y of Vaccine 00:00:00 [facility] Influenza Virus 2020-06-11 Completed Universit y of Vaccine 00:00:00 [facility] Influenza Virus 2020-06-11 Completed Universit y of Vaccine 00:00:00 [facility] Influenza Virus 2020-06-11 Completed Universit y of Vaccine 00:00:00 [facility] Influenza Virus 2020-06-11 Completed Universit y of Vaccine 00:00:00 [facility] Influenza Virus 2020-06-11 Completed Universit y of Vaccine 00:00:00 [facility] Influenza Virus 2020-06-11 Completed Universit y of Vaccine 00:00:00 [facility] Influenza Virus 2020-06-11 Completed Universit y of Vaccine 00:00:00 [facility] Influenza Virus 2020-06-11 Completed Universit y of Vaccine 00:00:00 [facility] Influenza Virus 2020-06-11 Completed Sandra Se [...] 2016-11-24 Completed University o f Polysaccharide, 00:00:00 [place] [facility] PPSV23 (PNEUMOVAX) [place] Influenza Virus 2016-11-24 Completed Universit y of Vaccine Quad IM 3+ 00:00:00 [facility] Pneumococcal 2016-11-24 Completed University o f Polysaccharide, 00:00:00 [place] [facility] PPSV23 (PNEUMOVAX) Branch Influenza Virus 2016-11-24 Completed Universit y of Vaccine Quad IM 3+ 00:00:00 [facility] Pneumococcal 2016-11-24 Completed University o f Polysaccharide, 00:00:00 [place] [facility] PPSV23 (PNEUMOVAX) Branch Influenza Virus 2016-11-24 Completed Universit y of Vaccine Quad IM 3+ 00:00:00 [facility] Pneumococcal 2016-11-24 Completed University o f Polysaccharide, 00:00:00 [place] [facility] PPSV23 (PNEUMOVAX) Branch Influenza Virus 2016-11-24 Completed Universit y of Vaccine Quad IM 3+ 00:00:00 [facility] Pneumococcal 2016-11-24 Completed University o f Polysaccharide, 00:00:00 [place] [facility] PPSV23 (PNEUMOVAX) Branch Influenza Virus 2016-11-24 Completed Universit y of Vaccine Quad IM 3+ 00:00:00 [facility] Pneumococcal 2016-11-24 Completed University o f Polysaccharide, 00:00:00 [place] [facility] PPSV23 (PNEUMOVAX) Branch Influenza Virus 2016-11-24 Completed Universit y of Vaccine Quad IM 3+ 00:00:00 [facility] Pneumococcal 2016-11-24 Completed University o f Polysaccharide, 00:00:00 [place] Med ical PPSV23 (PNEUMOVAX) Branch Influenza Virus 2016-11-24 Completed Universit y of Vaccine Quad IM 3+ 00:00:00 [facility] Pneumococcal 2016-11-24 Completed University o f Polysaccharide, 00:00:00 [place] Med ical PPSV23 (PNEUMOVAX) Branch Influenza Virus 2016-11-24 Completed Universit y of Vaccine Quad IM 3+ 00:00:00 [facility] Pneumococcal 2016-11-24 Completed University o f Polysaccharide, 00:00:00 [place] [facility] PPSV23 (PNEUMOVAX) Branch Influenza Virus 2016-11-24 Completed Universit y of Vaccine Quad IM 3+ 00:00:00 [facility] Pneumococcal 2016-11-24 Completed University o f Polysaccharide, 00:00:00 [place] [facility] PPSV23 (PNEUMOVAX) Branch Influenza Virus 2016-11-24 Completed Universit y of Vaccine Quad IM 3+ 00:00:00 [facility] Pneumococcal 2016-11-24 Completed University o f Polysaccharide, 00:00:00 [place] [facility] PPSV23 (PNEUMOVAX) Branch Influenza Virus 2016-11-24 Completed Universit y of Vaccine Quad IM 3+ 00:00:00 [facility] Pneumococcal 2016-11-24 Completed University o f Polysaccharide, 00:00:00 [place] [facility] PPSV23 (PNEUMOVAX) Branch Influenza Virus 2016-11-24 Completed Universit y of Vaccine Quad IM 3+ 00:00:00 [facility] Pneumococcal 2016-11-24 Completed University o f Polysaccharide, 00:00:00 [place] [facility] PPSV23 (PNEUMOVAX) Branch Influenza Virus 2016-11-24 Completed Universit y of Vaccine Quad IM 3+ 00:00:00 [facility] Influenza Virus 2016-11-24 Completed Sandra Se ybold [...] 00:00:00 Td 2016-11-22 Completed University of 00:00:00 [facility] Td 2016-11-22 Completed University of 00:00:00 [facility] Td 2016-11-22 Completed University of 00:00:00 [facility] Td 2016-11-22 Completed University of 00:00:00 [facility] Td 2016-11-22 Completed University of 00:00:00 [facility] Td 2016-11-22 Completed University of 00:00:00 [facility] Td 2016-11-22 Completed University of 00:00:00 [facility] Td 2016-11-22 Completed University of 00:00:00 [facility] Td 2016-11-22 Completed University of 00:00:00 [facility] Td 2016-11-22 Completed University of 00:00:00 [facility] Td 2016-11-22 Completed University of 00:00:00 [facility] Td 2016-11-22 Completed University of 00:00:00 [facility] Td 2016-11-22 Completed University of 00:00:00 [facility] Td (adult) 2016-11-22 Completed Sandra Seybold [...] Source Body weight 2022-12-13 120.566 kg Sandra Seybold - 22:09:00 External BMI 2022-12-13 36.05 kg/m2 Sandra Seybold - 22:09:00 External Systolic blood 2022-12-13 134 mm[Hg] Sandra Seybol d - pressure 21:39:00 External Diastolic blood 2022-12-13 76 mm[Hg] Sandra Seybo ld - pressure 21:39:00 External Heart rate 2022-12-13 67 /min Sandra Seybold - 21:39:00 External Body temperature 2022-12-13 36.89 Makenzie Sandra Seyb old - 21:39:00 External Respiratory rate 2022-12-13 16 /min Sandra Seyb old - 21:39:00 External Body height 2022-12-13 182.9 cm Asndra Seybold - 21:39:00 External Body height 2022-11-17 182.9 cm Sandra [...] weight 2022-10-12 125.193 kg Sandra Seybold - 14:28: External BMI 2022-10-12 37.43 kg/m2 Sandra Seybold [...] 19:16:00 Respiratory rate 2021-11-03 14 /min Sandra Seyb old 19:16:00 Body height 2021-11-03 182.9 cm Sandra Seybold 19:16:00 Body weight 2021-11-03 117.935 kg patient reports Sandra Seybo ld 19:16:00 BMI 2021-11-03 35.26 kg/m2 Sandra Argueta 19:16:00 Systolic blood 2021-10-20 136 mm[Hg] Sandra Palma d pressure 14:49:00 Diastolic blood 2021-10-20 76 mm[Hg] Sandra Sprague ld pressure 14:49:00 Heart rate 2021-10-20 113 /min Sandra Lozanoold 14:49:00 Body temperature 2021-10-20 36.72 Makenzie Sandra Lozano old 14:49:00 Respiratory rate 2021-10-20 15 /min Sandra Lozano old 14:49:00 Body height 2021-10-20 182.9 cm Sandra Argueta 14:49:00 Body temperature 2020-10-20 36.67 Makenzie University of 16:33:00 [facility] Body height 2020-10-20 180.3 cm University of 16:33:00 [facility] Body weight 2020-10-20 121.11 kg University of 16:33:00 [facility] BMI 2020-10-20 37.24 kg/m2 University of 16:33:00 [facility] Body temperature 2020-09-29 36.44 Makenzie University of 15:34:00 [facility] Body weight 2020-09-29 121.473 kg University of 15:34:00 [facility] BMI 2020-09-29 37.35 kg/m2 University of 15:34:00 [facility] Systolic blood 2020-08-11 177 mm[Hg] University of pressure 19:17:00 [facility] Diastolic blood 2020-08-11 101 mm[Hg] University o f pressure 19:17:00 [facility] Heart rate 2020-08-11 110 /min University of 19:17:00 [facility] Body temperature 2020-08-11 36.44 Makenzie University of 19:15:00 [facility] Respiratory rate 2020-08-11 16 /min University of 19:15:00 [facility] Body height 2020-08-11 180.3 cm University of 19:15:00 [facility] Body weight 2020-08-11 121.473 kg University of 19:15:00 [facility] BMI 2020-08-11 37.35 kg/m2 University of 19:15:00 [facility] Procedures Procedure Date / Time Performed Performing Clinician Sourc e XR FOOT 3+ VW RIGHT 2020-09-29 16:15:00 Kaye Keller [facility] ASSIGNMENT OF BENEFITS 2020-08-11 19:07:32 Doctor Unassigned, No General acute hospital Plan of Care Planned Activity Planned Date Details Comments Source Future Scheduled 2026-11-22 DTAP/TDAP/TD VACCINES ([address] [facility] 00:00:00 - Td or Tdap) [code = Medica l Center DTAP/TDAP/TD VACCINES (2 - Td or Tdap)] Future Scheduled 2026-11-22 DTAP/TDAP/TD VACCINES ([address] [facility] 00:00:00 - Td or Tdap) [code = Medica l Center DTAP/TDAP/TD VACCINES (2 - Td or Tdap)] Future Scheduled 2023-05-20 Influenza Vaccine (#1) [facility] 00:[facility]:00 [code = Influenza Vaccine Me dical Center (#1)] Future Scheduled 2023-05-20 Influenza Vaccine (#1) [facility] 00:00:00 [code = Influenza Vaccine Me dical Center (#1)] Future Scheduled 2022-09-[address] [facility] 00:00:00 (12+) [code = DEPRESSION Med ical Center SCREENING (12+)] Future Scheduled 2022-09-[address] [facility] 00:00:00 (12+) [code = DEPRESSION Med ical Center SCREENING (12+)] Future Scheduled 2022-09-[address] [facility] 00:00:00 Counseling and Screening Med ical Center (12+) [code = Tobacco Cessation Counseling and Screening (12+)] Future Scheduled 2022-09-[address] [facility] 00:00:00 Counseling and Screening Med ical Center (12+) [code = Tobacco Cessation Counseling and Screening (12+)] Future Scheduled 2021-09-[address] [facility] 00:[facility]:00 measurement (procedure) [facility]i [facility]ancy Center [code = 35621507] Future Scheduled 2021-09-[address] [facility] 00:00:00 measurement (procedure) Medi nancy Center [code = 89492350] Future Scheduled 2021-01-28 COVID-19 VACCINE (2 - [facility]00 Booster for [facility] series) [code = COVID-19 VACCINE (2 - Booster for Moderna series)] Future Scheduled 2021-01-28 COVID-19 VACCINE (2 - [facility] 00:[facility]:00 Booster for [facility] series) [code = COVID-19 VACCINE (2 - Booster for Moderna series)] Future Scheduled 2019 SHINGLES VACCINES ([address] [facility] 00:00:00 2) [code = SHINGLES Medical Center VACCINES (1 of 2)] Future Scheduled 2019 SHINGLES VACCINES ([address] [facility] 00:00:00 2) [code = SHINGLES Medical Center VACCINES (1 of 2)] Future Scheduled 2004 Lipid panel (procedure) [facility] 00:00:00 [code = 00561306] Medical Ce nter Future Scheduled 2004 Lipid panel (procedure) [facility] 00:00:00 [code = 54437554] Medical Ce nter Future Scheduled 1987 HEPATITIS C SCREENING [facility] 00:00:00 [code = HEPATITIS C Medical Center SCREENING] Future Scheduled 1987 HEPATITIS C [facility]CRE[facility]ING [facility] 00:00:00 [code = HEPATITIS C Medical Center SCREENING] Future Scheduled [address] [facility] 00:00:00 virus screening Medical Cent er (procedure) [code = 410269438] Future Scheduled 1979 Diabetic foot examination [facility] 00:00:00 (regime/therapy) [code = [facility] 528011783] Future Scheduled 1979 Urine screening for [facility] 00:00:00 protein (procedure) [code [facility] = [id number]] Future Scheduled 1979 DIABETIC EYE EXAM [code = [facility] 00:00:00 DIABETIC EYE EXAM] Medical C enter Future Scheduled 1979 Diabetic foot examination [facility] 00:00:00 (regime/therapy) [code = [facility] [id number]] Future Scheduled 1979 Urine screening for [facility] 00:00:00 protein (procedure) [code Me dical Center = 338695932] Future Scheduled 1979 DIABETIC EYE EXAM [code = [facility] 00:00:00 DIABETIC EYE EXAM] Medical C enter Future Scheduled 1969 CT Colonography (combo) [facility] 00:00:00 [code = CT Colonography Medi nancy Center (combo)] Future Scheduled 1969 Screening for malignant [facility] 00:00:00 neoplasm of colon Medical Ce nter (procedure) [code = 242094743] Future Scheduled 1969 Screening for malignant [facility] 00:00:00 neoplasm of colon Medical Ce nter (procedure) [code = 097644313] Future Scheduled 1969 Screening for malignant [facility] 00:00:00 neoplasm of colon Medical Ce nter (procedure) [code = 678232050] Future Scheduled 1969 Screening for malignant [facility] 00:00:00 neoplasm of colon Medical Ce nter (procedure) [code = 705016203] Future Scheduled 1969 Sigmoidoscopy [code = [facility] 00:[facility] Sigmoidoscopy] Medical Cente r Future Scheduled 1969 CT Colonography (combo) [facility] 00:00:00 [code = CT [facility] ([facility] Future Scheduled 1969 Screening for malignant [facility] 00:00:00 neoplasm of colon Medical Ce nter (procedure) [code = 566061365] Future Scheduled 1969 Screening for malignant [facility] 00:00:00 neoplasm of colon Medical Ce nter (procedure) [code = 438913563] Future Scheduled 1969 Screening for malignant [facility] 00:00:00 neoplasm of colon Medical Ce nter (procedure) [code = 681387673] Future Scheduled 1969 Screening for malignant [facility] 00:00:00 neoplasm of colon Medical Ce nter (procedure) [code = 333572606] Future Scheduled 1969 Sigmoidoscopy [code = [facility] 00:[facility] Sigmoidoscopy] Medical Cente r Encounters Start End Encounter Admission Attending Care Care Encounter Source Date/Time Date/Time Type Type Clinicians Facility Department ID 2023-04-18 2023-04-18 Outpatient SANDRA MCCALL [id number] Sandra 11:45:00 11:45:00 GERARDO Seybol d 2023-04-08 2023-04-08 Outpatient SANDRA MCCALL [id number] Sandra 08:30:00 08:30:00 GERARDO Seybol d 2023-02-15 2023-02-15 Outpatient SANDRA SWANN [id number] Sandra 00:00:00 00:00:00 MARY Seybol d 2023-02-11 2023-02-11 Outpatient SANDRA SWANN [id number] Sandra 00:00:00 00:00:00 MARY Seybol d 2023-01-21 2023-01-21 Outpatient SANDRA SWANN [id number] Sandra 00:00:00 00:00:00 MARY Seybol d 2023-01-13 2023-01-13 Outpatient SANDRA SWANN [id number] Sandra 00:00:00 00:00:00 MARY Seybol d 2023-01-05 2023-01-05 Outpatient SANDRA SWANN [id number] Sandra 00:00:00 00:00:00 MARY Seybol d 2023-01-04 2023-01-04 Outpatient SANDRA SWANN [id number] Sandra 00:00:00 00:00:00 MARY Seybol d 2022-12-27 2022-12-27 Outpatient SANDRA SWANN [id number] Sandra 00:00:00 00:00:00 MARY Seybol d 2022-12-20 2022-12-20 Outpatient SANDRA SWANN [id number] Sandra 00:00:00 00:00:00 MARY Seybol d 2022-12-13 2022-12-13 Outpatient SANDRA SWANN [id number] Sandra 16:30:00 16:30:00 MARY Seybol d 2022-12-13 2022-12-13 Outpatient SANDRA LARA [id number] Sandra 08:40:00 08:40:00 ABBEY Seybol d 2022-12-13 2022-12-13 Outpatient SANDRA MCDANIELS [id number] Sandra 08:25:00 08:25:00 Seybol d 2022-12-13 2022-12-13 Outpatient SANDRA MCDANIELS [id number] Sandra 08:15:00 08:15:00 Seybol d 2022-12-13 2022-12-13 Outpatient JANE, SANDRA MCDAINELS [id number] Sandra 00:00:00 00:00:00 ABBEY Seybol d 2022-12-10 2022-12-10 Outpatient JANE, SANDRA MCDANIELS [id number] Sandra 00:00:00 00:00:00 ABBEY Seybol d 2022-12-07 2022-12-07 Outpatient HUNDL, SANDRA MCDANIELS [id number] Sandra 00:00:00 00:00:00 MARY Seybol d 2022-12-06 2022-12-06 Outpatient PREZAS, SANDRA MCDANIELS [id number] Sandra 00:00:00 00:00:00 GERARDO Seybol d 2022-11-26 2022-11-26 Outpatient JAMIE, BANKS SANDRA MCDANIELS [id number] Sandra 13:30:00 13:30:00 Seybol d 2022-11-26 2022-11-26 Outpatient LAB90 SANRDA MCDANIELS [id number] Sandra 12:55:00 12:55:00 Seybol d 2022-11-25 2022-11-25 Outpatient HUNDL, SANDRA MCDANIELS [id number] Sandra 00:00:00 00:00:00 MARY Seybol d 2022-11-23 2022-11-23 Outpatient HUNDL, SANDRA MCDANIELS [id number] Sandra 13:30:00 13:30:00 MARY Seybol d 2022-11-23 2022-11-23 Outpatient HUNDL, SANDRA MCDANIELS [id number] Sandra 13:30:00 13:30:00 MARY Seybol d 2022-11-17 2022-11-17 Outpatient ONWUCHURUBA SANDRA MCDANIELS [id number] Sandra 10:30:00 10:30:00 , SABRINA Thompson bold 2022-11-14 2022-11-14 Outpatient HUNDL, SANDRA MCDANIELS [id number] Sandra 00:00:00 00:00:00 MARY Seybol d 2022-11-09 2022-11-09 Outpatient HUNDL, SANDRA MCDANIELS [id number] Sandra 00:00:00 00:00:00 MARY Seybol d 2022-11-08 2022-11-08 Outpatient HUNDL, SANDRA MCDANIELS [id number] Sandra 10:30:00 10:30:00 MARY Seybol d 2022-10-22 2022-10-22 Outpatient HUNDL, SANDRA MCDANIELS [id number] Sandra 00:00:00 00:00:00 MARY Seybol d 2022-10-21 2022-10-21 Outpatient PROVIDER, SANDRA MCDANIELS [id number] Sandra 20:00:00 20:00:00 VIDEOVISITN Se ybold OW 2022-10-17 2022-10-17 Outpatient HUNDL, SANDRA MCDANIELS [id number] Sandra 00:00:00 00:00:00 MARY Seybol d 2022-10-12 2022-10-12 Outpatient LAB90 SANDRA MCDANIELS [id number] Sandra 09:15:00 09:15:00 Seybol d 2022-10-12 2022-10-12 Outpatient HUNDL, SANDRA MCDANIELS [id number] Sandra 08:30:00 08:30:00 MARY Seybol d 2022-09-28 2022-09-28 Outpatient HUNDL, SANDRA MCDANIELS [id number] Sandra 08:00:00 08:00:00 MARY Seybol d 2022-01-01 2022-01-01 Telemedici [facility] [id number] Sandra 14:30:00 15:08:38 ne Grand marj [id number] Se evgeny [place] Venessa [id number] 2021-12-28 2021-12-28 Outpatient LAB90 SANDRA MCDANIELS [id number] Sandra 13:45:00 13:45:00 Seybol d 2021-12-22 2021-12-22 Outpatient HILDA-OMKAR MCDANIELS [id number] Sandra 00:00:00 00:00:00 MARJ, Seybol d CORRIE 2021-12-21 2021-12-21 Outpatient SHELBI SANDRA MCDANIELS [id number] Sandra 00:00:00 00:00:00 MD JOHANA Seybol d 2021-11-25 2021-11-25 Outpatient HILDABRO MCDANIELS [id number] Sandra 14:00:00 14:00:00 MARJ, Seybol d CORRIE 2021-11-24 2021-11-24 Outpatient SANDRA ERNANDEZ [id number] Sandra 09:00:00 09:00:00 MAGALIS Seybol d 2021-11-19 2021-11-19 Outpatient SANDRA HUBBARD [id number] Sandra 00:00:00 00:00:00 TEETEE Seybol d 2021-11-17 2021-11-17 Outpatient CASTROROSANNA SANDRA MCDANIELS [id number] Sandra 00:00:00 00:00:00 MD JOHANA Seybol d 2021-11-16 2021-11-16 Outpatient SANDRA HUBBARD [id number] Sandra 00:00:00 00:00:00 TEETEE Seybol d 2021-11-11 2021-11-11 Outpatient SANDRA HUBBARD [id number] Sandra 08:00:00 08:00:00 TEETEE Seybol d 2021-11-11 2021-11-11 Outpatient SANDRA HUBBARD [id number] Sandra 00:00:00 00:00:00 TEETEE Seybol d 2021-11-04 2021-11-04 Outpatient SANDRA HUBBARD [id number] Sandra 00:00:00 00:00:00 TEETEE Seybol d 2021-11-03 2021-11-03 Outpatient LAB39 SANDRA MCDANIELS [id number] Sandra 15:15:00 15:15:00 Seybol d 2021-11-03 2021-11-03 Office [facility] [id number] Sandra 13:30:00 14:30:00 Visit GABI mcmahan [id number] Se evgeny [place] [id number] 2021-10-28 2021-10-28 Outpatient RIVKARobles SANDRA MCDANIELS [id number] Sandra 00:00:00 00:00:00 MARY Seybol d 2021-10-26 2021-10-26 Outpatient RIVKARobles SANDRA MCDANIELS [id number] Sandra 00:00:00 00:00:00 MARY Seybol d 2021-10-26 2021-10-26 Outpatient HILDAOMKAR MCDANIELS [id number] Sandra 00:00:00 00:00:00 Minerva MCMAHAN 2021-10-20 2021-10-20 Outpatient [id number] SANDRA MCDANIELS [id number] Sandra 10:15:00 10:15:00 Seybol d 2021-10-20 2021-10-20 Outpatient LAB90 SANDRA MCDANIELS [id number] Sandra 10:10:00 10:10:00 Seybol d 2021-10-20 2021-10-20 Office Ramesh Swann [id number] Sandra 09:00:00 09:30:00 Visit Mary Elias [id number] Se evgeny [id number] 2021-09-18 2021-09-25 Inpatient UR VINCENT TIERNEY Neurosurger 20 [id number] [facility] 16:39:00 18:24:00 MRINALINI y 2021-05-18 2021-05-18 Outpatient SANDRA ERNANDEZ [id number] Sandra 10:15:00 10:15:00 MAGALIS Seybol d 2021-05-15 2021-05-15 Outpatient SANDRA ERNANDEZ [id number] Sandra 00:00:00 00:00:00 MAGALIS Seybol d 2021-04-28 2021-04-28 Outpatient SANDRA ERNANDEZ [id number] Sandra 00:00:00 00:00:00 MAGALIS Seybol d 2021-04-27 2021-04-27 Outpatient AKINSANDRA FLOYD [id number] Sandra 00:00:00 00:00:00 MAGALIS Seybol d 2021-04-22 2021-04-22 Outpatient AKINSANDRA FLOYD [id number] Sandra 00:00:00 00:00:00 MAGALIS Seybol d 2021-04-20 2021-04-20 Outpatient AKINSANDRA FLOYD [id number] Sandra 00:00:00 00:00:00 MAGALIS Seybol d 2021-04-17 2021-04-17 Outpatient AKINSANDRA FLOYD [id number] Sandra 00:00:00 00:00:00 MAGALIS Seybol d 2021-04-17 2021-04-17 Outpatient MARITZA LEWIS [id number] Sandra 00:00:00 00:00:00 Seybol d 2021-04-16 2021-04-16 Outpatient SANDRA ERNANDEZ [id number] Sandra 08:30:00 08:30:00 MAGALIS Seybol d 2021-04-16 2021-04-16 Outpatient [id number] SANDRA MCDANIELS [id number] Sandra 08:20:00 08:20:00 Seybol d 2021-04-06 2021-04-06 Outpatient SANDRA FERMIN [id number] Sandra 00:00:00 00:00:00 ROSALBA Seybol d 2021-04-04 2021-04-04 Outpatient SANDRA FERMIN [id number] Sandra 00:00:00 00:00:00 ROSALBA Seybol d 2020-12-02 2020-12-02 Patient Quentin [facility] [id number] Univers 00:00:00 00:00:00 Outreach Lars JENKINS [id number] michelle cedillo [facility] [id number] Elmer PARR [id number] Me dical [address] 2020-11-10 2020-11-10 [facility] [id number] [facility] 09:45:00 09:45:00 KAYE ity of [facility] 2020-10-31 2020-10-31 [facility]phone [facility] [id number] Univers 00:00:00 00:00:00 Armin SPECIALTY [id number] [place] [phone] [place] kylah DONOHUE [address] [place] [address] 2020-10-20 2020-10-20 Office [facility] 1.2.840.114 [id number] Univers 10:05:41 13:50:58 Visit Armin SPECIALTY 350.1.13.10 ity of CARE 4.2.7.2.686 [facility] AT [id number] [place] kylah DONOHUE [address] [place] [address] 2020-10-20 2020-10-20 [facility] [id number] [facility] 09:45:00 09:45:00 KAYE ity of [facility] 2020-10-13 2020-10-13 [facility] [id number] [facility] 10:30:00 10:30:00 ARMIN ity of [facility] 2020-09-29 2020-09-29 [facility] 1.2.840.114 [id number] Univers 10:03:46 23:59:00 Encounter Kaye PRIMARY [id number] [place] [id number] [facility] [address] 2020-09-29 2020-09-29 Office [facility] [id number] Univers 09:27:17 10:36:22 Visit Kaye PRIMARY 350.1.13.10 [place] [id number] [facility] [address] 2020-09-29 2020-09-29 [facility] [id number] Univers 09:15:00 09:15:00 KAYE ity of [facility] 2020-08-11 2020-08-11 Automatic Beam Warper Tender [facility] UNIVERSIT 1.2.840.114 [id number] Univers 14:45:44 15:00:44 Visit Teresa Edwards [facility] 350.1.13.10 [place] CL[place] [id number] [facility] [address] 2020-08-11 2020-08-11 Office Nabila Collins UNIVERSIT 1.2.840.114 [id number] Univers 13:08:19 14:38:25 Visit GraceTeresa [facility] 350.1.13.10 [place] [id number] [facility] [address] 2020-08-11 2020-08-11 Outpatient R [facility] [id number] Univers 13:00:00 13:00:[address] [facility] 2020-08-11 2020-08-11 Orders Doctor MALISSA 1.2.840.114 [id number] Univers 00:00:00 00:00:00 Only Unassigned, FARHAN 350.1.13.10 ity of [facility] 4.2.7.2.686 O[place] as [id number] [facility] [address] Results Test Description Test Time Test Comments Results Result Comments Source POCT-GLUCOSE METER 2021-09-25 11:26:37 Test Item Value Reference Range Interpretation Comme [facility] POC-GLUCOSE METER (AKER) 160 mg/dL 70-110 H : TESTED AT [facility] [address] (test code = 1538) ADONAY Mckeon 86782: Homeopathic Doctor/Techni lucy ID = [id number] for Tian Fletcher (CELLAVISION MANUAL DIFF)2021-09-25 08:29:01 [...] CONCENTRATION Adequate (CELLAVISION)(BEAKER) (test code = 3438) Homeopathic Doctor ID - claudia Hoyt comments: Slide comments:CBC W/PLT COUNT & AUTO [id number] 08:29:00 Test Item Value Reference Range Interpretation [...] 0-0 (BEAKER) (test code = 413) POCT-GLUCOSE [id number] 08:03:44 Test Item Value Reference Range Interpretation Comments POC-GLUCOSE METER 155 mg/dL 70-110 H : TESTED A T [facility] 6720 (BEAKER) (test code = SHILPA URIAS [place], 1538) 67622: Homeopathic Doctor/Techni lucy ID = [id number] for Marcelino Cabrera BASIC METABOLIC [id number] 06:46:41 Test Item Value Reference Range Interpretation [...] S NOT APPLICABLE FOR DIALYSIS PATIEN TS. Homeopathic Doctor ID - ESTRADA MPOCT-GLUCOSE [id number] 17:47:29 Test Item Value Reference Range Interpretation Comments POC-GLUCOSE METER 160 mg/dL 70-110 H : TESTED A T [facility] 6720 (BEAKER) (test code = [facility], 1538) 17823: Homeopathic Doctor/Techni lucy ID = [id number] for Bl Marcelino cevallos POCT-GLUCOSE [id number] 11:07:55 Test Item Value Reference Range Interpretation Comments POC-GLUCOSE METER 185 mg/dL 70-110 H : TESTED A T [facility] 6720 (BEAKER) (test code = [facility], 1538) 96129: Homeopathic Doctor/Techni lucy ID = [id number] for Alisa Guadarrama POCT-GLUCOSE [id number] 07:59:08 Test Item Value Reference Range Interpretation Comments POC-GLUCOSE METER 202 mg/dL 70-110 H : TESTED A T [facility] 6720 (BEAKER) (test code = [facility], 1538) 08556: Homeopathic Doctor/Techni lucy ID = [id number] for Bl acMarcelino dillon (CELLAVISION MANUAL DIFF)2021-09-24 07:06:11 Test Item Value [...] CONCENTRATION Adequate (CELLAVISION)(BEAKER) (test code = 3438) Homeopathic Doctor ID - Emily Torres comments: Slide comments:CBC W/PLT COUNT & AUTO [id number] 07:06:05 Test Item Value Reference Range Interpretation [...] (BEAKER) (test code = 413) BASIC METABOLIC [id number] 06:51:21 Test Item Value Reference Range Interpretation [...] S NOT APPLICABLE FOR DIALYSIS PATIEN TS. Homeopathic Doctor ID - DEVIKA WBLOOD [id number] 06:01:11 Test Item Value Reference Range Interpretation Comments CULTURE (BEAKER) (test No growth in 5 days code = 1095) BLOOD [id number] 01:01:07 Test Item Value Reference Range Interpretation Comments CULTURE (BEAKER) (test No growth in 5 days code = 1095) POCT-GLUCOSE [id number] 21:28:29 Test Item Value Reference Range Interpretation Comments POC-GLUCOSE METER 187 mg/dL 70-110 H : TESTED A T [facility] 6720 (BEAKER) (test code = SHILPA URIAS [place], 1538) 78174: Homeopathic Doctor/Techni lucy ID = [id number] for Steph Kuamr BLOOD [id number] 20:00:49 Test Item Value Reference Range Interpretation Comments CULTURE (BEAKER) (test No growth in 5 days code = 1095) The specimen volume collected for this blood culture was below the optimum (10 mL per bottle or 20 mL total). Use of lower volumes may adversely affect recovery and/or detection times of some organisms.POCT-GLUCOSE [id number] 17:25:26 Test Item Value Reference Range Interpretation Comments POC-GLUCOSE METER 191 mg/dL 70-110 H : TESTED A T [facility] 6720 (BEAKER) (test code = SHILPA Dunn [place], 1538) 96996: Homeopathic Doctor/Techni lucy ID = [id number] for An Bina loja POCT-GLUCOSE [id number] 11:29:27 Test Item Value Reference Range Interpretation Comments POC-GLUCOSE METER 209 mg/dL 70-110 H : TESTED A T [facility] 6720 (BEAKER) (test code = SHILPA Dunn [place], 1538) 63121: Homeopathic Doctor/Techni lucy ID = [id number] for An Bina loja BASIC METABOLIC [id number] 06:30:06 Test Item Value Reference Range Interpretation [...] S NOT APPLICABLE FOR DIALYSIS PATIEN TS. Homeopathic Doctor ID - ESTRADA MCBC W/PLT COUNT & AUTO [id number] 05:32:16 Test Item Value Reference Range Interpretation [...] PERCENT (BEAKER) (test code = 2801) POCT-GLUCOSE [id number] 21:11:15 Test Item Value Reference Range Interpretation Comments POC-GLUCOSE METER 179 mg/dL 70-110 H : TESTED A T [facility] 6720 (BEAKER) (test code = SHILPA URIAS [place], 1538) 97405: Homeopathic Doctor/Techni lucy ID = [id number] for Josephine Roberto POCT-GLUCOSE [id number] 17:05:43 Test Item Value Reference Range Interpretation Comments POC-GLUCOSE METER 152 mg/dL 70-110 H : TESTED A T [facility] 6720 (BEAKER) (test code = [facility], 1538) 80265: Homeopathic Doctor/Techni lucy ID = [id number] for ALFREDA DELEON POCT-GLUCOSE [id number] 15:29:50 Test Item Value Reference Range Interpretation Comments POC-GLUCOSE METER 177 mg/dL 70-110 H : TESTED A T [facility] 6720 (BEAKER) (test code = [facility], 1538) 12422: Homeopathic Doctor/Techni lucy ID = [id number] for RO PAULINA MONROYECA POCT-GLUCOSE [id number] 08:25:18 Test Item Value Reference Range Interpretation Comments POC-GLUCOSE METER 174 mg/dL 70-110 H : TESTED A T [facility] 6720 (BEAKER) (test code = [facility], 1538) 75579: Homeopathic Doctor/Techni lucy ID = [id number] for RO DGPAULINA FONTANAECA (CELLAVISION MANUAL DIFF)2021-09-22 07:24:33 Test Item Value [...] CONCENTRATION Adequate (CELLAVISION)(BEAKER) (test code = 3438) Homeopathic Doctor ID - claudia Hoyt comments: Slide comments:CBC W/PLT COUNT & AUTO [id number] 07:24:32 Test Item Value Reference Range Interpretation [...] (BEAKER) (test code = 413) BASIC METABOLIC [id number] 05:28:03 Test Item Value Reference Range Interpretation [...] S NOT APPLICABLE FOR DIALYSIS PATIEN TS. Homeopathic Doctor ID - ESTRADA MPOCT-GLUCOSE [id number] 21:57:41 Test Item Value Reference Range Interpretation Comments POC-GLUCOSE METER 192 mg/dL 70-110 H : TESTED A T [facility] 6720 (BEAKER) (test code = [facility], 1538) 99065: Homeopathic Doctor/Techni lucy ID = [id number] for Danae Robertoarabella POCT-GLUCOSE [id number] 17:57:30 Test Item Value Reference Range Interpretation Comments POC-GLUCOSE METER 183 mg/dL 70-110 H : TESTED A T [facility] 6720 (BEAKER) (test code = [facility], 1538) 61939: Homeopathic Doctor/Techni lucy ID = [id number] for MOLLY JAVONJOSE FONTANA HEPATIC FUNCTION [id number] 16:01:45 Test Item Value Reference Range Interpretation [...] (test code = 11 U/L 6-55 347) Homeopathic Doctor ID - ESTRADA MOperator ID - ESTRADA [id number] 15:56:05 Test Item Value Reference Range Interpretation Comments PHOSPHORUS (BEAKER) (test code = 3.5 mg/dL 2.3-4.7 604) Homeopathic Doctor ID - ESTRADA MC-REACTIVE [id number] 15:56:05 Test Item Value Reference Range Interpretation Comments C-REACTIVE PROTEIN (BEAKER) (test 15.79 mg/dL 0.00-0.50 H code = 676) Homeopathic Doctor ID - ESTRADA MBASIC METABOLIC [id number] 15:56:04 Test Item Value Reference Range Interpretation [...] S NOT APPLICABLE FOR DIALYSIS PATIEN TS. Homeopathic Doctor ID - ESTRADA [id number] 15:56:04 Test Item Value Reference Range Interpretation Comments MAGNESIUM (BEAKER) (test code = 1.7 mg/dL 1.6-2.6 627) Homeopathic Doctor ID - ESTRADA MCBC W/PLT COUNT & AUTO [id number] 14:57:10 Test Item Value Reference Range Interpretation [...] (test code = 416) BASOPHILS ABSOLUTE COUNT (AKER) 0.02 K/ L 0.01-0.08 (test code = 417) IMMATURE GRANULOCYTES-RELATIVE 1 % 0-1 PERCENT (BEAKER) (test code = 2801) POCT-GLUCOSE [id number] 12:33:22 Test Item Value Reference Range Interpretation Comments POC-GLUCOSE METER 162 mg/dL 70-110 H : TESTED A T [facility] 6720 (BEAKER) (test code = [facility], [facility]) 98656: Homeopathic Doctor/Techni lucy ID = [id number] for RO DGERS, JAMECA POCT-GLUCOSE [id number] 08:13:06 Test Item Value Reference Range Interpretation Comments POC-GLUCOSE METER 180 mg/dL 70-110 H : [facility] T [facility] 6720 [facility] (test code = [facility], [facility]) 50837: Homeopathic Doctor/Techni lucy ID = [id number] for RO DGERS, JAMECA POCT-GLUCOSE [id number] 20:39:42 Test Item Value Reference Range Interpretation Comments POC-GLUCOSE METER 175 mg/dL 70-110 H : TESTED A T [facility] 6720 ([facility]) (test code = [facility], [facility]) 14717: Homeopathic Doctor/Techni lucy ID = [id number] for We aver, Steph POCT-GLUCOSE [id number] 17:10:08 Test Item Value Reference Range Interpretation Comments POC-GLUCOSE METER 188 mg/dL 70-110 H : TESTED A T [facility] 6720 ([facility] (test code = [facility], [facility]) 58813: Homeopathic Doctor/Techni lucy ID = [id number] for OJ LEONOR, ARIAN POCT-GLUCOSE [id number] 11:49:26 Test Item Value Reference Range Interpretation Comments POC-GLUCOSE METER 180 mg/dL 70-110 H : TESTED A T [facility] 6720 (BEAKER) (test code = [facility], [facility]) 53219: Homeopathic Doctor/Techni lucy ID = [id number] for OJ LEONOR, ARIAN POCT-GLUCOSE [id number] 17:09:11 Test Item Value Reference Range Interpretation Comments POC-GLUCOSE METER 174 mg/dL 70-110 H : TESTED A T [facility] 6720 (BESHASHI) (test code = SHILPA Dunn [facility], 1538) 05497: Homeopathic Doctor/Techni lucy ID = [id number] for An Bina loja POCT-GLUCOSE [id number] 11:42:24 Test Item Value Reference Range Interpretation Comments POC-GLUCOSE METER 175 mg/dL 70-110 H : TESTED A T [facility] 6720 (JESSICA) (test code = SHILPA Dunn [facility], 1538) 44199: Homeopathic Doctor/Techni lucy ID = [id number] for An Bina loja MR, SPINE, LUMBAR, [id number] 10:43:00Unlisted Reason for Exam - Click Yes and Enter Reason Below->No [facility] : 1970 Sex: MFINAL REPORT [...] canal narrowing. No neural foraminal narrowing. L4-L5: Symmetric disc bulge, facet arthropathy, and ligamentum flavum prominence contributes to mild spinal canal narrowing and mild bilateral neural foraminal narrowing.L5-S1: Epidural phlegmon, disc extrusion, contribute to severe spinal canal narrowing. Symmetric disc bulge and facet arthropathy contribute to moderate bilateral neural foraminal narrowing. 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 This phlegmon contributes to severe spinal canal narrowing at this level. Signed: Siddhartha Pineda MDReport Verified Date/Time: 09/19/2021 10:43:41 POCT-GLUCOSE [id number] 07:25:08 Test Item Value Reference Range Interpretation Comments POC-GLUCOSE METER 181 mg/dL 70-110 H : TESTED Kathie T [facility] 6720 (SUNNYQitio) (test code = SHILPA URIAS [place], 1538) 42423: Homeopathic Doctor/Techni lucy ID = [id number] for An Bina loja C-REACTIVE [id number] 05:36:13 Test Item Value Reference Range Interpretation Comments C-REACTIVE PROTEIN ([employer]ee[employer] TechnologiesSHASHI) (test 15.70 mg/dL 0.00-0.50 H code = 676) Homeopathic Doctor ID - ESTRADA MCOMPREHENSIVE METABOLIC [id number] 05:36:12 Test Item Value Reference Range Interpretation Comments TOTAL PROTEIN 6.2 gm/dL 6.0-8.3 ([employer] TechnologiesSHASHI) (test code = 770) ALBUMIN (BEAKER) 2.3 [...] S NOT APPLICABLE FOR DIALYSIS PATIEN TS. Homeopathic Doctor ID - ESTRADA MSARS-COV2/RT-PCR ([facility])2021-09-19 01:23:23 Test Item Value Reference Range Interpretation Comments SARS-COV2/RT-PCR Negative Negative The SARS-Co V-2 target (test code = nucleic acids a re not [id number]) detected in thi s specimen. Negative result [...] rapid, real-time RT-PC R test intended for e qualitative detection of nu cleic acid [...] revoked sooner. Fact Sheet for Healthcare Providers: https://www.Docitt m/Documents/Xpert%20Xpress%20SARS%20CoV-2/Fact%20Sheets/302-3802%04DKUM-SGC-7%20 HEALTHCARE%20PROVIDERS%20FACT%20SHEET.pdf Fact Sheet for Healthcare Patients: https://www.9+/Documents/Xpert%20Xp ress%20SARS%20CoV-2/Fact%20Sheets/302-3801%00YHBN-YZZ-4%20PATIENT%20FACT%20SHEET .pdfPOCT-GLUCOSE [id number] 22:10:31 Test Item Value Reference Range Interpretation Comments POC-GLUCOSE METER 176 mg/dL 70-110 H : TESTED A T [facility] 6720 (BEAKER) (test code = MARGARETTEJORGE Dunn [facility], 1538) 99354: Homeopathic Doctor/Techni lucy ID = [id number] for Steph Kumar [id number] 19:54:47 Test Item Value Reference Range Interpretation Comments PHOSPHORUS (BEAKER) (test code = 2.8 mg/dL 2.3-4.7 604) Homeopathic Doctor ID - DBBASIC METABOLIC [id number] 19:54:46 Test Item Value Reference Range Interpretation [...] S NOT APPLICABLE FOR DIALYSIS PATIEN TS. Homeopathic Doctor ID - [id number] 19:54:46 Test Item Value Reference Range Interpretation Comments MAGNESIUM (BEAKER) (test code = 1.7 mg/dL 1.6-2.6 627) Homeopathic Doctor ID - [id number] 19:51:43 Test Item Value Reference Range Interpretation Comments PARTIAL THROMBOPLASTIN TIME 38.0 seconds 22.5-36.0 H (BEAKER) (test code = 760) [id number] 19:51:43 Test Item Value Reference Range Interpretation [...] 2.5-3.5 for patients with mechanical heart valves.PROTHROMBIN TIME/[id number] 19:51:01 Test Item Value Reference Range Interpretation Comments PROTIME (BEAKER) 17.3 seconds 11.9-14.2 H (test code = 759) INR (BEAKER) (test 1.44 See_Comment [Automat ed message] code = 370) The system Overtone generated this result transmitted ref erence range: <=5.90. The reference range was not used to int erpret this result as normal/abnormal . RECOMMENDED COUMADIN/WARFARIN INR THERAPY RANGESSTANDARD DOSE: 2.0 - 3.0 Includes: PROPHYLAXIS for venous thrombosis, systemic embolization; TREATMENT for venous thrombosis and/or pulmonary embolus.HIGH RISK: Target INR is 2.5-3.5 for patients with mechanical heart valves.CBC W/PLT COUNT & AUTO [id number] 19:37:43 Test Item Value Reference Range Interpretation [...] PERCENT (BEAKER) (test code = 2801) POCT-GLUCOSE [id number] 17:15:12 Test Item Value Reference Range Interpretation Comments POC-GLUCOSE METER 147 mg/dL 70-110 H : TESTED A T [facility] 6720 ([facility]) (test code = SHILPA Dunn [facility], 1538) 14456: Homeopathic Doctor/Techni lucy ID = [id number] for An Bina loja XR FOOT 3+ VW [id number] 20:59:26 1. ?Neuropathic right mid foot. RL: [...] is a remote fracture proximal fifth phalanx. [facility], Radiant Results Inft User - 09/29/2020 3:00 [...] fifth phalanx.IMPRESSION1. Neuropathic right mid foot.RL: 1105 [facility]
[2023-04-07] MEDS ORDERED: FAMOTIDINE 20 MG/2 ML VIAL IV ONE (12:21)
[2023-04-07] MEDS ORDERED: DIPHENHYDRAMINE 50 MG/ML VIAL ONE (12:21)
[2023-04-07] MEDS ORDERED: NA CHLORIDE 0.9% 1,000 ML ONE (12:21)
[2023-04-07 12:31] LABS: Absolute Lymphocytes (CBC) 0.9 K/uL (0.7-4.9); Hematocrit 28.1 % (39.6-49.0); Lymphocytes % 6.2 % (15.3-44.8); MCV 86.4 fL (80-100); MPV 7.3 fL (7.6-11.3); RBC Red Blood Cell Count 3.25 M/uL (4.33-5.43)
[2023-04-07 12:40] LABS: Protime INR 1.75
[2023-04-07 12:56] LABS: ALT/SGPT < 10 U/L (16-61); AST/SGOT 15 U/L (15-37); Albumin 2.1 g/dL (3.4-5.0); Alkaline Phosphatase 127 U/L (45-117); BUN Blood Urea Nitrogen 22 mg/dL (7-18); Bicarbonate 24 mEq/L (21-32); Bilirubin Total 0.5 mg/dL (0.2-1.0); Glomerular Filtration Rate 72 ml/min (=/>90); Glucose Level 272 mg/dL (74-106); Protein, Total 8.2 g/dL (6.4-8.2); Sodium Level 120 mEq/L (136-145)
--- NOTE | 2023-04-07 13:18 | RAD REPORT ---
EXAM DESCRIPTION: RAD - Ankle Right 3 View - 04/07/2023 1:11 pm CLINICAL HISTORY: chronic wound COMPARISON: Ankle Right 3 View dated 03/16/2018 FINDINGS: There is significant destructive changes seen involving the ankle and foot. Very ostial th ickening is present. Moderate flatfoot deformity. Small calcaneal spurs. This is compatible with a Ch arcot joint.
--- NOTE | 2023-04-07 13:19 | RAD REPORT ---
EXAM DESCRIPTION: RAD - Chest Single View - 04/07/2023 1:11 pm CLINICAL HISTORY: sepsis Chest pain. COMPARISON: <Comparisons> FINDINGS: Portable technique limits examination quality. Mild interstitial pulmonary edema. The heart is moderately enlarged. No displaced fractures. IMPRESSION: Mild CHF.
[2023-04-07] MEDS ORDERED: PIPERACIL/TAZO 4.5 GM VIAL IV ONE (13:36)
[2023-04-07] MEDS ORDERED: NA CHLORIDE 0.9% 100 ML ONE (13:36)
[2023-04-07] MEDS ORDERED: VANCOMYCIN 2 GM in NA CHLORIDE 0.9% 500 ML IVPB ONE (13:45)
--- NOTE | 2023-04-07 13:46 | ER ---
Nurse's Notes [facility] Name: Roverto Figueroa Age: 52 yrs Sex: Male : 1970 Arrival Date: 04/07/2023 Time: 11:47 Bed 17 Private MD: Diagnosis: Sepsis, unspecified organism;Hypo-osmolality and hyponatremia;Chronic wound of right ankle Presentation: 04/07 11:54 Chief complaint: Patient states: Weakness started today. Wound vac R leg for 1 month. ll1 Started itching all over today, rash noted upon arrival to ED. EMS states: BS 475, DM, 18 L arm NS bolus started. 98 systolic and then 89 systolic. HR !37. Very thirsty. Coronavirus screen: Client denies travel out of the [place] in the last 14 days. At this time, the client does not indicate any symptoms associated with coronavirus-19. Ebola Screen: Patient denies travel to an Ebola-affected area in the 21 days before illness onset. Initial Sepsis Screen: Does the patient meet any 2 criteria? Altered Mental Status. HR > 90 bpm. No. Patient's initial sepsis screen is negative. Does the patient have a suspected source of infection? Yes: Skin breakdown/wound. Risk Assessment: Do you want to hurt yourself or someone else? Patient reports no desire to harm self or others. Onset of symptoms was March 08, 2023. 11:54 Method Of Arrival: EMS: [facility] ll1 11:54 Acuity: KAMRYN 2 ll1 Historical: - Allergies: 13:08 No Known Allergies; kc6 - PMHx: 13:08 Diabetes - NIDDM; Hypertension; kc6 - PSHx: 13:08 toe amputation; kc6 - Immunization history:: Adult Immunizations unknown. - Social history:: Smoking status: Patient denies any tobacco usage or history of. Screenin:45 [facility] ED Fall Risk Assessment (Adult) History of falling in the last 3 months, kc6 including since admission No falls in past 3 months (0 pts) Confusion or Disorientation Yes (5 pts) Intoxicated or Sedated No (0 pts) Impaired Gait Yes (1 pt) Mobility Assist Device Used Yes (1 pt) Altered Elimination No (0 pt) Score/Fall Risk Level 3 or more points = High Risk. Abuse screen: Denies threats or abuse. Denies injuries from another. Nutritional screening: No deficits noted. Tuberculosis screening: No symptoms or risk factors identified. Assessment: 12:45 General: Appears in no apparent distress. uncomfortable, ill, unkempt, Behavior is kc6 cooperative, restless. Pain: Complains of pain in right foot. Neuro: Level of Consciousness is awake, alert, obeys commands, Oriented to person, place, time, situation, Appropriate for age. Cardiovascular: Denies chest pain, Heart tones S1 S2 present Capillary refill < 3 seconds Rhythm is sinus tachycardia. Respiratory: Airway is patent Trachea midline Respiratory effort is even, unlabored, Respiratory pattern is regular, symmetrical. GI: Reports nausea, Patient currently denies diarrhea, vomiting. : No signs and/or symptoms were reported regarding the genitourinary system. EENT: No signs and/or symptoms were reported regarding the EENT system. Derm: Skin is pink, warm \T\ dry. Wound noted right foot Wound is covered with a wound vac, and wrapped in SHIN wrap. Musculoskeletal: No signs and/or symptoms reported regarding the musculoskeletal system. Circulation, motion, and sensation intact. Capillary refill < 3 seconds, Range of motion: intact in all extremities. 13:59 Reassessment: Patient appears in no apparent distress at this time. No changes from ll1 previously documented assessment. Patient and/or family updated on plan of care and expected duration. Pain level reassessed. 14:59 Reassessment: Patient appears in no apparent distress at this time. No changes from kc6 previously documented assessment. Patient and/or family updated on plan of care and expected duration. Pain level reassessed. 15:08 Reassessment: attempted to call report to 2nd floor. stated they are having a nurses kc6 meeting right now, on hold for 6min. 15:15 Reassessment: attempted to call report to second floor, still in a nurses meeting. kc6 16:07 Reassessment: attempted to call report to ICU. nurse Linda will call me back. kc6 Vital Signs: 11:54 BP 106 / 79; Pulse 144; Resp 20; Temp 98.6(O); Pulse Ox 99% on R/A; Pain 0/10; ll1 13:06 BP 122 / 70; Pulse 128; Resp 34 S; Pulse Ox 98% on R/A; kc6 13:41 Weight 122.47 kg (R); ll1 13:59 BP 124 / 97; Pulse 134; Resp 22 S; Temp 97.4(O); Pulse Ox 100% on R/A; ll1 15:02 BP 113 / 70; Pulse 129; Resp 34 S; Temp 98.8(O); Pulse Ox 100% on R/A; kc6 11:54 Pain Scale: Adult ll1 ED Course: 11:51 Patient arrived in ED. kc6 11:52 Samira Salazar RN is Primary Nurse. kc6 11:53 Arm band placed on Patient placed in an exam room, on a stretcher. ll1 11:55 Celine Thompson MD is Attending Physician. sd2 12:02 Triage completed. ll1 12:09 Maintain EMS IV. Dressing intact. Good blood return noted. Site clean \T\ dry. Gauge \T\ jenn 6 site: 18G L Wrist. 12:45 Patient has correct armband on for positive identification. Placed in gown. Bed in low kc6 position. Call light in reach. Side rails up X2. Adult w/ patient. 13:13 Chest Single View XRAY In Process Unspecified. EDMS 13:13 XRAY Ankle RIGHT 3 view In Process Unspecified. EDMS 13:17 Notified ED physician of a critical lab result(s). lactate 4.0. ll1 13:44 Jesús Scott MD is Hospitalizing Provider. sd2 16:56 No provider procedures requiring assistance completed. Patient admitted, IV remains in kc6 place. Administered Medications: 12:17 Drug: diphenhydrAMINE IVP 25 mg Route: IVP; Site: left wrist; kc6 15:03 Follow up: Response: No adverse reaction kc6 12:17 Drug: Famotidine IVP 20 mg Route: IVP; Site: left wrist; kc6 15:03 Follow up: Response: No adverse reaction kc6 12:39 Drug: NS 0.9% IV 1000 ml Route: IV; Rate: 1 bolus; Site: left wrist; kc6 13:27 Follow up: Response: No adverse reaction; IV Status: Completed infusion; IV Intake: cm10 900ml 13:41 Drug: Piperacillin-Tazobactam IVPB 4.5 grams Route: IVPB; Infused Over: 60 mins; Site: ll1 left wrist; 15:03 Follow up: Response: No adverse reaction; IV Status: Completed infusion; IV Intake: kc6 100ml 14:19 Drug: vancoMYCIN IVPB 15 mg/kg Route: IVPB; Site: left wrist; kc6 15:03 Follow up: Response: No adverse reaction; IV Status: Infusion continued upon admission; kc6 IV Intake: 250ml Medication: 16:56 VIS not applicable for this client. kc6 Intake: 13:27 IV: 900ml; Total: 900ml. cm10 15:03 IV: 100ml; Total: 1000ml. kc6 15:03 IV: 250ml; Total: 1250ml. kc6 Outcome: 13:45 Decision to Hospitalize by Provider. sd2 16:56 Admitted to ICU accompanied by nurse, via stretcher, room 4, with chart, Report called kc6 to JOEY Mckeon 16:56 Condition: stable 16:56 Instructed on the need for admit. 16:[address] [facility] Signatures: Dispatcher [employer] EDMS Kahlil Altamirano RN RN ll1 Celine Thompson MD MD sd2 Samira Salazar RN RN kc6 Carmelita Torres RN RN cm10 Corrections: (The following items were deleted from the chart) 14:07 13:59 BP 124 / 97; Pulse 134bpm; Resp 22bpm; Spontaneous; Pulse Ox 100% RA; ll1 ll1
--- NOTE | 2023-04-07 13:46 | EDPHYS ---
Physician Documentation [facility] Name: Roverto Figueroa Age: 52 yrs Sex: Male : 1970 Arrival Date: 04/07/2023 Time: 11:47 Bed 17 Private MD: ED Physician Celine Thompson HPI: 04/07 12:06 This 52 yrs old Male presents to ER via EMS with complaints of General Weakness, Rash. sd2 12:06 52-year-old male presents via EMS with chief complaint of generalized weakness. He has sd2 been dealing with a chronic wound to his right lower extremity which has a wound VAC in place for the past month. He has completed his Bactrim and has been compliant with current treatment regimen. He is followed by Dr. Hays for this. They deny any known fevers, diarrhea or urinary symptoms. The patient has had some episodes of vomiting as well as confusion and occasional visual hallucinations per his significant other at bedside.. Historical: - Allergies: 13:08 No Known Allergies; kc6 - PMHx: 13:08 Diabetes - NIDDM; Hypertension; kc6 - PSHx: 13:08 toe amputation; kc6 - Immunization history:: Adult Immunizations unknown. - Social history:: Smoking status: Patient denies any tobacco usage or history of. ROS: 12:06 Eyes: Negative for injury, pain, redness, and discharge. sd2 12:06 Cardiovascular: Negative for chest pain, palpitations, and edema, Respiratory: Negative for shortness of breath, cough, wheezing. Abdomen/GI: Negative for abdominal pain, diarrhea. Positive for nausea and vomiting. MS/Extremity: Negative for injury and deformity, Skin: Negative for injury, Positive for rash and wound. Psych: Negative for depression, anxiety, suicide ideation, homicidal ideation, and positive for hallucinations. 12:06 Constitutional: Positive for fatigue, malaise, Negative for chills, fever. 12:06 Cardiovascular: Positive for Exam: 12:06 Constitutional: This is a well developed, well nourished patient who is awake, alert, sd2 and in no acute distress. Head/Face: Normocephalic, atraumatic. Eyes: EOMI, normal conjunctiva bilaterally Chest/axilla: Normal chest wall appearance and motion. Nontender with no deformity. Cardiovascular: Tachycardic rate and regular rhythm with a normal S1 and S2. No gallops, murmurs, or rubs. 2+ distal pulses. Respiratory: Lungs have equal breath sounds bilaterally, clear to auscultation and percussion. No rales, rhonchi or wheezes noted. No increased work of breathing, no retractions or nasal flaring. Abdomen/GI: Soft, non-tender, with normal bowel sounds. No guarding or rebound. No evidence of tenderness throughout. Skin: Warm, dry with normal turgor. Erythematous macular rash noted to entire torso and extremities with associated pruritus. MS/ Extremity: Pulses equal, no cyanosis. Chronic wound noted to R lateral ankle with wound vac in place. Psych: Awake, alert, with orientation to person, place and time. Behavior, mood, and affect are within normal limits. 12:26 ECG was reviewed by the Attending Physician. Wide QRS tachycardia, rate 133, no STEMI sd2 criteria, baseline artifact present, ST depression in V6 possibly Vital Signs: 11:54 BP 106 / 79; Pulse 144; Resp 20; Temp 98.6(O); Pulse Ox 99% on R/A; Pain 0/10; ll1 13:06 BP 122 / 70; Pulse 128; Resp 34 S; Pulse Ox 98% on R/A; kc6 13:41 Weight 122.47 kg (R); ll1 13:59 BP 124 / 97; Pulse 134; Resp 22 S; Temp 97.4(O); Pulse Ox 100% on R/A; ll1 15:02 BP 113 / 70; Pulse 129; Resp 34 S; Temp 98.8(O); Pulse Ox 100% on R/A; kc6 11:54 Pain Scale: Adult ll1 MDM: 11:55 Patient medically screened. sd2 12:06 Differential diagnosis: Dehydration, electrolyte abnormality, UTI, PNA, anemia among sd2 others. Data reviewed: vital signs, nurses notes, EMS record, lab test result(s), EKG, radiologic studies. 13:43 ED course: Fluids stopped in sepsis protocol due to Na 120 and signs of fluid overload sd2 and possibly CHF on CXR. Will defer further management to hospitalist team. . 04/07 12:05 Order name: Blood Culture Adult (2) sd2 04/07 12:05 Order name: CBC with Diff; Complete Time: 13:04 sd04/07 12:05 Order name: CMP; Complete Time: 13:04 04/07 12:05 Order name: Lactate w/ 2H reflex if indic.; Complete Time: 13:21 04/07 12:05 Order name: Protime (+inr); Complete Time: 13:04 04/07 12:05 Order name: Ptt, Activated; Complete Time: 13:04 04/07 12:05 Order name: Urinalysis w/ reflexes 04/07 12:05 Order name: Procalcitonin; Complete Time: 13:33 sd04/07 12:05 Order name: AMMONIA; Complete Time: 13:12 04/07 13:33 Order name: BNP 04/07 12:05 Order name: Chest Single View XRAY; Complete Time: 13:21 04/07 12:20 Order name: XRAY Ankle RIGHT 3 view; Complete Time: 13:21 04/07 12:05 Order name: EKG; Complete Time: 12:06 04/07 15:14 Order name: Social Service Consult EDMS 04/07 12:05 Order name: Accucheck; Complete Time: 12:39 sd04/07 12:05 Order name: Cardiac monitoring; Complete Time: 12:39 04/07 12:05 Order name: EKG - Nurse/Tech; Complete Time: 12:09 04/07 12:05 Order name: IV Saline Lock - Large Bore; Complete Time: 12:09 04/07 12:05 Order name: Labs collected and sent; Complete Time: 12:39 04/07 12:05 Order name: O2 Per Protocol; Complete Time: 12:09 04/07 12:05 Order name: O2 Sat Monitoring; Complete Time: 12:09 04/07 12:05 Order name: Vital Signs; Complete Time: 12:09 sd2 Administered Medications: 12:17 Drug: diphenhydrAMINE IVP 25 mg Route: IVP; Site: left wrist; kc6 15:03 Follow up: Response: No adverse reaction kc6 12:17 Drug: Famotidine IVP 20 mg Route: IVP; Site: left wrist; kc6 15:03 Follow up: Response: No adverse reaction kc6 12:39 Drug: NS 0.9% IV 1000 ml Route: IV; Rate: 1 bolus; Site: left wrist; kc6 13:27 Follow up: Response: No adverse reaction; IV Status: Completed infusion; IV Intake: cm10 900ml 13:41 Drug: Piperacillin-Tazobactam IVPB 4.5 grams Route: IVPB; Infused Over: 60 mins; Site: ll1 left wrist; 15:03 Follow up: Response: No adverse reaction; IV Status: Completed infusion; IV Intake: kc6 100ml 14:19 Drug: vancoMYCIN IVPB 15 mg/kg Route: IVPB; Site: left wrist; kc6 15:03 Follow up: Response: No adverse reaction; IV Status: Infusion continued upon admission; kc6 IV Intake: 250ml Disposition Summary: 04/07/23 13:45 Hospitalization Ordered Hospitalization Status: Inpatient Admission sd2 Provider: Jesús Scott sd2 Condition: Stable sd2 Problem: new sd2 Symptoms: are unchanged sd2 Bed/Room [facility]: [facility] Location: Intensive Care Unit(04/07/23 15:51) kj1 Room Assignment: 4-(04/07/23 15:51) kj1 Diagnosis - Sepsis, unspecified organism sd2 - Hypo-osmolality and hyponatremia sd2 - Chronic wound of right ankle sd2 Forms: - Medication Reconciliation Form sd2 - SBAR form sd2 Signatures: Dispatcher [employer] Krista Trevino kj1 Kahlil Altamirano RN RN ll1 Celine Thompson MD MD sd2 Samira Salazar RN RN kc6 Carmelita Torres RN cm10 Corrections: (The following items were deleted from the chart) 14:51 13:45 Intensive Care Unit sd2 kj1 14:51 13:45 sd2 kj1 15:51 14:51 Telemetry/MedSurg (Inpatient) kj1 kj1 15:51 14:51 209 kj1 kj1
--- NOTE | 2023-04-07 15:03 | P.HP ---
Certification for Inpatient Patient admitted to: Inpatient With expected LOS: <2 Midnights Patient will require the following post-hospital care: Home Health Services Practitioner: I am a practitioner with admitting privileges, knowledge of patient current condition, hospital course, and medical plan of care. Services: Services provided to patient in accordance with Admission requirements found in Title 42 Section 412.3 of the Code of Federal Regulations Patient History Date of Service: 04/07/23 Reason for admission: Weakness History of Present Illness: 52-year-old male with a past medical history significant for DM2, hypertension, obesity, chronic pain syndrome, Charcot's foot, anemia, PVD chronic right lower foot wound with a Vac-Pac dressing presents to the emergency room with generalized weakness. He was recently seen and followed by Surg for Chronic RLE foot wound, that has wound vac intact followed by Dr. Hays. Reports RLE swelling that is chronic. He reports taking Bactrim for RLE wound. He denies fever, chills, NVD cough, chest pain, shortness of breath. He reports nonweightbearing, uses a electric wheelchair for transfers. He reports alcohol use 3-4 drinks per day, that includes rum and beer. He denies tobacco use. Nurse reports mild confusion and occasional visual hallucinations per his significant other.Patient being admitted for sepsis, unspecified organism, Hypo- osmolality and hyponatremia, Chronic wound of right ankle Lab evauation Procalcitonin elevated 1.61, albumin 2.1, lactic 4.0, blood glucose 272, estimated GFR 72 sodium 120 CBC WBC 14.80, hemoglobin 9.2, hematocrit 28.1, early left shift 80 patient recieved IV vancomycin, Zosyn, IVF in ED Ankle x-ray INDINGS: There is significant destructive changes seen involving the ankle and foot. Very ostial thickening is present. Moderate flatfoot deformity. Small calcaneal spurs. This is compatible with a Charcot joint. CXR Mild interstitial pulmonary edema. The heart is moderately enlarged. No displaced fractures. IMPRESSION: Mild CHF Allergies No Known Allergies Allergy (Verified 05/07/20 08:35) Home Medications: Apixaban [Eliquis] 5 mg PO BID #60 tablet 01/05/22 - Past Medical/Surgical History Diabetic: Yes -: Hypertension -: Diabetes -: chronic RLE foot wound -: Amputation of right toe 2017 -: Femoral Stent - Family History Father -: Cancer - Social History Alcohol use: Yes CD- Drugs: No Caffeine use: Yes Review of Systems 10-point ROS is otherwise unremarkable Physical Examination - Physical Exam General: Alert, In no apparent distress, Oriented x2, Disheveled HEENT: Atraumatic, Normocephalic, PERRLA Neck: Supple, 2+ carotid pulse no bruit, JVD not distended Respiratory: Diminished Cardiovascular: Regular rate/rhythm, Normal S1 S2 Capillary refill: <2 Seconds Gastrointestinal: Normal bowel sounds, Non-distended Musculoskeletal: No clubbing, No swelling Integumentary: Other (RLE edema, dry, vac pack in place wrapped lucian wrap NWB) Neurological: Other (Confused, AOX2) - Studies Laboratory Data (last 24 hrs) 04/07/23 12:15: PT 19.3 H, INR 1.75, APTT 32.8 04/07/23 12:15: Sodium 120 L, Potassium 4.0, BUN 22 H, Creatinine 1.21, Glucose 272 H, Total Bilirubin 0.5, AST 15, ALT < 10 L, Alkaline Phosphatase 127 H 04/07/23 12:15: WBC 14.80 H, Hgb 9.2 L, Hct 28.1 L, Plt Count 256 Assessment and Plan - Plan Assessment Plan sepsis, unspecified organism hyponatremia mild Pulmonary edema Chronic wound of right ankle Microcytic anemia DM2 with hyperglycemia Hypertension. Stable History of Charcot's foot with right foot wound History of PVD Nonweightbearing wheelchair dependent Right lower extremity pressure ulcer Obesity Alcohol use DVT prophylaxis Assessment plan Admit to ICU sepsis, unspecified organism Gentle IVF, IV Vanc/Zosyn ID consult trend lactic, wbc, cultures Procalcitonin elevated 1.61,actic 4.0, CBC WBC 14.80, early left shift 80 hyponatremia Neph consult Q4H BMP, mag gentle IV fluids, sodium 120 mild Pulmonary edema CXR Mild interstitial pulmonary edema. The heart is moderately enlarged. IMPRESSION: Mild CHF bid Lasix, daily wt, IO, daily bnp Chronic wound of right ankle History of Charcot's foot Dr Torres consulted, Wound care consult Ankle x-ray INDINGS: There is significant destructive changes seen involving the ankle and foot. Very ostial thickening is present. Moderate flatfoot deformity. Small calcaneal spurs. This is compatible with a Charcot joint. Microcytic anemia trend H&H, tranfuse HH <7 hemoglobin 9.2, hematocrit 28.1 Acute kidney injury unknown baseline- gentle IV fluids, nephrology consult trend kidney function BUN 22 CR 1.21estimated GFR 72 Dr Johnson consulted DM2 with hyperglycemia. BS monitoring with sliding scale insulin. blood glucose 272, Hypertension. Continue home medications and hydralazine as needed. History of PVD supportive care Right lower extremity pressure ulcer- wound care Nonweightbearing wheelchair dependent-PT consult fall precautions Alcohol use- CIWA precautions DVT prophylaxis Diet n.p.o. after midnight Full code Discharge Plan: Home - Advance Directives Does patient have a Living Will: No Does patient have a Durable POA for Healthcare: No - Code Status/Comfort Care Code Status: Full Code Physician Review: Patient Assessed, Agree with Above Assessment and Plan Critical Care: Yes Time Spent Managing Pts Care (In Minutes): 70
[2023-04-07] MEDS ORDERED: ACETAMINOPHEN 500 MG TAB PO PRN (15:35)
[2023-04-07] MEDS ORDERED: ONDANSETRON 4 MG/2 ML VIAL IV PRN (15:35)
[2023-04-07] MEDS ORDERED: FLUMAZENIL 0.1 MG/ML (5 mL VIAL) IV PRN ×2 (16:27→17:06)
[2023-04-07] MEDS: INSULIN -REGULAR HUMAN 50 UNIT/0.5 ML ML SQ SCH ×4 (16:30→21:16)
[2023-04-07] MEDS ORDERED: FUROSEMIDE 40 MG/4 ML VIAL IV SCH (17:00)
[2023-04-07] MEDS: NA CHLORIDE 0.9% 1,000 ML IV SCH (17:15)
[2023-04-07 17:36] LABS: Magnesium 1.8 mg/dL (1.6-2.4); Potassium 4.2 mEq/L (3.5-5.1)
[2023-04-07 17:45] LABS: Phosphorus 3.1 mg/dL (2.5-4.9)
[2023-04-07] MEDS: chlordiazePOXIDE HCl 25 MG CAP PO SCH (17:52)
[2023-04-07 19:29] LABS: Specific Gravity 1.026 (1.005-1.030); Urine Bacteria 20-50 /HPF (<20); Urine Bilirubin NEGATIVE (Negative); Urine Blood 3+ (OVER) (Negative); Urine Clarity Extremely Turbid (Clear); Urine Color Yellow (Yellow); Urine Crystals Unidentified Few /HPF (None Seen); Urine Glucose 3+ (Negative); Urine Mucus Slight /HPF (None Seen); Urine Protein 3+ (Negative); Urine RBC 21-50 /HPF (None Seen); Urine Urobilinogen 1+ (Normal); Urine WBC Clump Occasional /HPF (None Seen)
[2023-04-07 21:02] LABS: Potassium 3.8 mEq/L (3.5-5.1)
[2023-04-07] MEDS: LORazepam 2 MG/ML VIAL IV PRN (21:16)
[2023-04-07] MEDS ORDERED: PIPER TAZO 3.375 GM in NA CHLORIDE 0.9% 100 ML IV SCH (22:00)
[2023-04-07] MEDS: CEFEPIME 2 GM in NA CHLORIDE 0.9% 100 ML IV SCH (22:12)
[2023-04-08] MEDS: chlordiazePOXIDE HCl 25 MG CAP PO SCH ×5 (00:09→17:48)
[2023-04-08 01:20] LABS: Potassium 3.9 mEq/L (3.5-5.1)
[2023-04-08] MEDS: LORazepam 2 MG/ML VIAL IV PRN (01:23)
[2023-04-08] MEDS ORDERED: VANCOMYCIN 1 GM in NA CHLORIDE 0.9% 250 ML IVPB SCH (03:00)
[2023-04-08] MEDS ORDERED: MAGNESIUM SULFATE 1 gm IVPB 1 GM/100 ML BAG IV ONE (03:06)
[2023-04-08 05:17] LABS: Absolute Lymphocytes (CBC) 1.1 K/uL (0.7-4.9); Hematocrit 23.3 % (39.6-49.0); Lymphocytes % 12.8 % (15.3-44.8); MCV 86.5 fL (80-100); MPV 7.8 fL (7.6-11.3)
[2023-04-08 05:34] LABS: Magnesium 2.1 mg/dL (1.6-2.4); Potassium 3.9 mEq/L (3.5-5.1)
[2023-04-08] MEDS: NA CHLORIDE 0.9% 1,000 ML IV SCH ×2 (06:25→16:17)
[2023-04-08] MEDS: CEFEPIME 2 GM in NA CHLORIDE 0.9% 100 ML IV SCH ×3 (06:25→23:01)
[2023-04-08] MEDS ORDERED: NACHLORIDE 0.45% 1,000 ML IV SCH (06:40)
--- NOTE | 2023-04-08 07:17 | P.PN ---
Date of Service: 04/08/23 Subjective: doing okay today, more talkative no nausea/vomiting/abdominal pain denies withdrawal symptoms / denies prior withdrawal; does seem somewhat confused ROS: 10 point ROS as noted above, otherwise negative Physical Exam: GEN: Alert, Oriented x2, Disheveled, confused at times HEENT: Normal conjunctiva, sclera anicteric CV: Regular rate and rhythm, BLE edema; R>L Pulm: Nonlabored respirations on room air, diminished at bases b/l ABD: Soft, nontender, nondistended MSK: R charcot foot Integumentary: right lower leg/foot chronic wound with dressing c/d/i, wrapping in place Neuro: Normal speech, normal affect vitals reviewed Problem List: Severe Sepsis, unspecified organism, secondary to foot wound; bacteremia Hyponatremia Mild CHF Chronic wound of right ankle History of Charcot's foot with right foot wound Microcytic anemia NIDDM2 with hyperglycemia Hypertension History of PVD Right lower extremity pressure ulcer Alcohol use disorder Sepsis, unspecified organism Chronic wound of right ankle History of Charcot's foot Nonweightbearing wheelchair dependent Xray Ankle (04/07): There is significant destructive changes seen involving the ankle and foot. Very ostial thickening is present. Moderate flatfoot deformity. Small calcaneal spurs. This is compatible with a Charcot joint. Blood culture: GPC growing in 4/4 bottles Urine culture: pending ID consulted Continue cefepime and vanc (04/07-) afebrile without leukocytosis Dr Torres consulted - covering for Dr. Hays PRN pain medication PT consult fall precautions was going to be set up with wound vac reportedly SHERI Hyponatremia Nephrology consulted Monitor renal function cont IVF monitor for signs of over-volume Microcytic anemia Monitor H&H, tranfuse if hgb < 7 hgb 9.2 -> 7.7 Mild CHF CXR (04/07): Mild CHF bid Lasix, daily wt, IO, daily bnp NIDDM2 with hyperglycemia. BS monitoring with sliding scale insulin. blood glucose 272, Hypertension borderline, low-normal; monitor closely no signs of septic shock History of PVD supportive care Alcohol use Last time he had a drink was ~3 days ago and last time hes went an entire week without a sip of alcohol was ~2 weeks ago per patient Does states he used to drink heavily in the past CIWA precautions Code: Full Dispo: Home ~3 days Pending culture results and improvement
[2023-04-08] MEDS: INSULIN -REGULAR HUMAN 50 UNIT/0.5 ML ML SQ SCH ×5 (07:30→21:08)
[2023-04-08 07:51] LABS: Ferritin 3185.7 ng/mL (26-388)
[2023-04-08] MEDS ORDERED: KCL 20 MEQ/100 mL IVPB 20 MEQ/100 ML BAG IV SCH (08:00)
[2023-04-08] MEDS: FOLIC ACID 1 MG TABLET PO SCH (08:36)
[2023-04-08] MEDS: THIAMINE HCL 100 MG TABLET PO SCH (08:37)
--- NOTE | 2023-04-08 08:41 | P.CNS ---
Date of Consult: 04/08/23 Reason for Consult: wound infection, sespsis Chief Complaint: Weakness History of Present Illness: Patient is a 52-year-old male with a past medical history of DM2, hypertension, obesity, Charcot's foot, anemia, PVD with chronic right lower foot wound who presented to the ED with complaints of generalized weakness. Patient admitted for sepsis and ID was consulted. Allergies No Known Allergies Allergy (Verified 05/07/20 08:35) Home medications list reviewed: Yes Home Medications: Apixaban [Eliquis] 5 mg PO BID #60 tablet 01/05/22 Collagenase [Santyl Ointment*] 1 appl TOP DAILY 04/07/23 - Past Medical/Surgical History Diabetic: Yes -: Hypertension -: Diabetes -: chronic RLE foot wound -: Amputation of right toe 2017 -: Femoral Stent - Family History Father Medical History: Cancer - Social History Smoking Status: Unknown if ever smoked Alcohol use: Yes CD- Drugs: No Caffeine use: No Place of Residence: Home Review of Systems 10-point ROS is otherwise unremarkable Musculoskeletal: Foot Pain Integumentary: As per HPI Physical Examination Temp Pulse Resp BP Pulse Ox 97.6 F 92 H 33 H 85/61 L 95 04/08/23 08:00 04/08/23 08:00 04/08/23 08:00 04/08/23 08:00 04/08/23 08:00 General: Alert, In no apparent distress, Oriented x2 HEENT: Atraumatic, Normocephalic Neck: Supple, JVD not distended Respiratory: Normal air movement, Diminished, Other (breathing comfortably on room air) Cardiovascular: Regular rate/rhythm, Edema (RLE) Gastrointestinal: Normal bowel sounds, Soft and benign Integumentary: Other (right lower leg/foot chronic wound with dressing clean dry and intact) Neurological: Normal speech, Other (confused) Laboratory Data - Reviewed Microbiology Data - Reviewed Imagings Data: - XR Chest 04/07: "Mild interstitial pulmonary edema. The heart is moderately enlarged. No displaced fractures." - XR Right Ankle 04/07: "There is significant destructive changes seen involving the ankle and foot. Very ostial thickening is present. Moderate flatfoot deformity. Small calcaneal spurs. This is compatible with a Charcot joint" Medications List - Reviewed Conclusions/Impression: Problem List Diabetes Mellitus type II Hypertension Obesity Charcot's foot Anemia PVD Diabetic foot wound, chronic Sepsis Bacteremia Sepsis Bacteremia - Blood cultures 04/07: gram positive cocci in 4 of 4 bottles - Urine culture 04/07: Pending - Currently on Cefepime and Vancomycin (started 04/07) Afebrile Leukocytosis improved (WBC 8.2) Recommendations - Continue Cefepime and Vancomycin for now - Follow up with final blood culture results and will adjust antibiotics as appropriate - WBC and fever trends - Strict blood glucose control - Elevate affected leg Case discussed with Socorro Goodwin
[2023-04-08 09:23] LABS: Potassium 3.8 mEq/L (3.5-5.1)
[2023-04-08] MEDS: VANCOMYCIN 1.75 GM in NA CHLORIDE 0.9% 500 ML IVPB SCH (10:37)
[2023-04-08 13:42] LABS: Potassium 3.8 mEq/L (3.5-5.1)
--- NOTE | 2023-04-08 14:27 | P.CNS ---
Date of Consult: 04/08/23 Reason for Consult: joanna Requesting Physician: Jesús Scott Chief Complaint: Weakness History of Present Illness: 52M w/ PMHx of hypertension, DM type II complicated by R Charcot foot, chronic pain syndrome, PVD complicated by right foot wound, and anemia, who p/w generalized weakness, admitted for sepsis 2/2 R foot/ankle wound infection. he is referred to nephrology for JOANNA & hyponatremia. His serum creatinine is 1.2 on admission and increased to 1.5. Serum creatinine is 1.3 currently. His baseline serum creatinine 0.6-0.9 as of 01/18/2023. Serum sodium is 120 on admission, improved to 127 currently. He has hyperglycemia. He is receiving antibiotics. His BNP significantly elevated. Urine chemistry showed secondary hyperaldosteronism. Chest x-ray shows mild CHF. He reports drinking alcoholic beverage recently and is currently on CIWA protocol. Allergies No Known Allergies Allergy (Verified 05/07/20 08:35) Home Medications: Apixaban [Eliquis] 5 mg PO BID #60 tablet 01/05/22 Collagenase [Santyl Ointment*] 1 appl TOP DAILY 04/07/23 - Past Medical/Surgical History Diabetic: Yes -: Hypertension -: Diabetes -: chronic RLE foot wound -: Amputation of right toe 2016 -: Femoral Stent - Family History Father Medical History: Cancer - Social History Smoking Status: Unknown if ever smoked Alcohol use: Yes CD- Drugs: No Caffeine use: No Place of Residence: Home Review of Systems General: Weakness Eyes: Unremarkable ENT: Unremarkable Respiratory: Unremarkable Cardiovascular: Unremarkable Gastrointestinal: Unremarkable Genitourinary: Unremarkable Musculoskeletal: Other (bilateral lower extremity edema, right foot wound) Integumentary: Other (right foot wound) Neurological: Weakness Lymphatics: Unremarkable Physical Examination Temp Pulse Resp BP Pulse Ox 98.3 F 82 22 H 85/56 L 92 04/08/23 12:00 04/08/23 13:00 04/08/23 13:00 04/08/23 13:00 04/08/23 13:00 General: Other (chronically ill-appearing) HEENT: Atraumatic, Normocephalic Neck: Supple, JVD not distended Respiratory: Other (symmetric chest expansion) Cardiovascular: No rubs, No murmurs Gastrointestinal: Soft and benign Musculoskeletal: Other (has Charcot foot deformity on the right, has right foot wound dressing) Neurological: Normal speech, Normal tone Urinary: Other (no bladder distention) External genitalia: Deferred Rectal: Deferred Conclusions/Impression: # JOANNA 2/2 ATN/sepsis/hypotension SCr 1.2 on admission, increased to 1.5, at 1.3 currently Baseline serum creatinine 0.6-0.9 as of 01/18/2023 Urinalysis with proteinuria, hematuria, pyuria Urine chemistry showing secondary hyperaldosteronism Has mild paranoia 0.7 g on randomly PCR BNP significant elevated. Dc Na-containing IVF. Start midodrine. MAP goal > 70-80. Abx, wound, care, midodrine # ? UTI Empiric abx F/u UCx # Severe sepsis 2/2 R ankle wound infection Hx of DM2, PVD, R charcot foot w/ chronic wound, on wound vac at home On empiric abx, wound care, per other services # Hypotonic, hypervolemic, chronic, symptomatic, moderate-degree hyponatremia 2/2 high ADH state from pain/CHF/hypotension/etoh withdrawal + renal dysfxn + low solute intake Serum Na 120 on adm, at 126 currently BNP sig elevated. Urine chem showed secondary hyperaldo. Dc IVF. 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
[2023-04-08] MEDS: COLLAGENASE 30 GM OINTMENT TOP SCH (14:52)
[2023-04-08] MEDS ORDERED: COSYNTROPIN 0.25 MG VIAL IV ONE (15:30)
[2023-04-08] MEDS: MIDODRINE HCL 5 MG TABLET PO SCH ×2 (16:13→23:01)
[2023-04-08] MEDS: PANTOPRAZOLE 40MG TABLET PO SCH (16:13)
--- NOTE | 2023-04-08 16:15 | CON ---
Date of Consultation: 04/08/2023 Diagnosis: Charcot foot with chronic nonhealing wounds of the right foot and ankle. History Of Present Illness: This is the case of a 52-year-old patient admitted to the hospital with the infected foul-smelling right ankle region. Patient has some other comorbidities that include hyp ertension, diabetes. He comes here with the wound VAC that was removed in the ICU, found to be foul smell and infection, so surgical consult was obtained. Normally, he is seen by Dr. Hays, but he i s out of town at this moment, so they asked me to cover for him for this time. The patient cannot gi ve much information. He says he try a lot of things. He stated that this ankle bleeds a lot and naseem t it is always foul smelling and always discharge coming from that area. His joint appeared to be di sarticulated with no function of that ankle at this moment. Patient denies any shortness of breath, any chest pain. No fever. Allergies: NONE. Medications: Includes Eliquis, Santyl ointment. Past Medical History: Hypertension, diabetes, and Charcot foot. Past Surgical History: Includes amputation of the right toe and femoral stent. Family History: Noncontributory. Social History: He does not smoke. He drinks alcohol occasionally. He was advised and counseled ab out cessation. Review of Systems: No shortness of breath. No chest pain. See my history of present illness for details. Ten points, otherwise, unremarkable. Laboratory Data: Blood work shows WBC count of 14.8, hemoglobin of 9.2, and platelets of 256, potass ium 3.8, glucose 181. Ankle x-ray shows significant destructive changes involving the ankle and foot . Physical Examination: General: Patient is awake and alert. HEENT: Pupils are anicteric. Neck: Supple. Chest: Clear. Abdomen: Soft and depressible. Extremities: Good capillary refill. Integumentary: On the right foot and ankle region, patient has multiple ulcers deep. There is some foul smelling coming from it and some fibrin present that was removed today with a 4 x 4. That joint is disarticulated. There was some deformity associated with it with nonfunctional ankle. Mild cell ulitis present in that area. Dorsalis pedis pulses are diminished. Assessment: 52-year-old patient admitted to the hospital with a working diagnoses of sepsis, hyponat remia, mild pulmonary edema with infected diabetic ulcer and Charcot foot. They removed the wound [facility] C previously. I agree with them. We are going to do just wet-to-dry Santyl in the meantime. When Mitchell Hays comes, then he will take care of this patient. In the meantime, I have discussed with the patient multiple possibilities, also he cannot rule out an amputation at least below-knee since this area has minimal chance of healing properly or ambulating but with the prosthetic he might have more mobility. He is not ready for anything else at this moment. So we are going to try to clean this a yadi in the next few days with dressing changes and then proceed accordingly. That will require also Infectious Disease to be involved in the case to rule out the possibility of osteomyelitis. HM/MODL Voice ID: [id number] Report ID: [id number]
[2023-04-08 17:13] LABS: UR SODIUM < 5 mmol/L (27-287)
[2023-04-08 17:14] LABS: UR PROTEIN 125.4 mg/dL (<11.9); Urine Protein/Creatinine Ratio 0.66 ratio (<0.15)
[2023-04-08 17:44] LABS: Absolute Lymphocytes (CBC) 1.1 K/uL (0.7-4.9); Hematocrit 23.3 % (39.6-49.0); Lymphocytes % 17.5 % (15.3-44.8); MCV 87.1 fL (80-100); MPV 7.9 fL (7.6-11.3); RBC Red Blood Cell Count 2.67 M/uL (4.33-5.43)
[2023-04-08 18:28] LABS: Potassium 3.7 mEq/L (3.5-5.1)
[2023-04-08 21:00] LABS: Potassium 3.9 mEq/L (3.5-5.1)
[2023-04-09] MEDS: chlordiazePOXIDE HCl 25 MG CAP PO SCH ×4 (00:21→18:02)
[2023-04-09 01:34] LABS: Potassium 3.8 mEq/L (3.5-5.1)
[2023-04-09 04:06] LABS: Absolute Lymphocytes (CBC) 1.2 K/uL (0.7-4.9); Hematocrit 22.7 % (39.6-49.0); Lymphocytes % 19.1 % (15.3-44.8); MCV 87.8 fL (80-100); MPV 8.4 fL (7.6-11.3); RBC Red Blood Cell Count 2.58 M/uL (4.33-5.43)
[2023-04-09 04:10] LABS: Magnesium 2.3 mg/dL (1.6-2.4); Potassium 3.8 mEq/L (3.5-5.1)
[2023-04-09 04:13] LABS: Phosphorus 3.7 mg/dL (2.5-4.9)
[2023-04-09] MEDS: NA CHLORIDE 0.9% 1,000 ML IV SCH (04:41)
[2023-04-09] MEDS: VANCOMYCIN 1.75 GM in NA CHLORIDE 0.9% 500 ML IVPB SCH ×2 (04:41→22:16)
[2023-04-09] MEDS ORDERED: POTASSIUM 25 MEQ EFFERV TAB PO ONE (05:45)
[2023-04-09] MEDS: CEFEPIME 2 GM in NA CHLORIDE 0.9% 100 ML IV SCH ×3 (06:06→21:30)
--- NOTE | 2023-04-09 07:05 | P.PN ---
Date of Service: 04/09/23 Subjective: doing okay, denies withdrawal symptoms, no hallucinations mentation improved no new / worsening problems no nausea / vomiting / diarrhea afebrile ROS: 10 point ROS as noted above, otherwise negative Physical Exam: GEN: Alert, Oriented x3, NAD HEENT: Normal conjunctiva, sclera anicteric CV: Regular rate and rhythm, BLE edema; R>L Pulm: Nonlabored respirations on room air, diminished at bases b/l ABD: Soft, nontender, nondistended 1ntegumentary: right lower leg/foot chronic wound with dressing, foul smelling Neuro: Normal speech, normal affect vitals reviewed Problem List: Severe Sepsis, secondary to right charcot foot Staph Aureus bacteremia Hyponatremia Pulmonary edema History of Charcot's foot with right foot wound Microcytic anemia NIDDM2 with hyperglycemia Hypertension History of PVD Right lower extremity pressure ulcer Alcohol use disorder Nicotine Abuse Severe Sepsis, secondary to right charcot foot Staph Aureus bacteremia History of Charcot's foot Nonweightbearing wheelchair dependent Xray Ankle (04/07): significant destructive changes seen involving the ankle and foot. Very ostial thickening is present. Moderate flatfoot deformity. Small calcaneal spurs. This is compatible with a Charcot joint. Blood culture(04/07): Staph Aureus Urine culture: pending ID consulted Continue cefepime and vanc (04/07-) pending cultures afebrile without leukocytosis Dr Torres consulted - covering for Dr. Hays PRN pain medication PT consult fall precautions repeat blood cultures SHERI Hyponatremia Nephrology consulted Monitor renal function improving cont IVF monitor for signs of over-volume Microcytic anemia Monitor H&H, tranfuse if hgb < 7 hgb 7.6 -> 7.5 no bleed pulm edema CXR (04/07): Mild CHF pattern unclear if has history of chf NIDDM2 with hyperglycemia BS monitoring with SSI Hypertension borderline, low-normal; monitor closely no signs of septic shock History of PVD supportive care Alcohol use Last time he had a drink was ~3 days prior to admission and last time he went an entire week without a sip of alcohol was ~2 weeks ago per patient Does states he used to drink heavily in the past CIWA precautions Nicotine Abuse smoking cessation advised. Placed on nicoderm patch 04/09 Code: Full Dispo: Home ~2-3 days Pending further improvement
[2023-04-09] MEDS: NICOTINE 21 MG/PAT TD SCH (08:30)
[2023-04-09] MEDS: PANTOPRAZOLE 40MG TABLET PO SCH ×2 (08:32→16:07)
[2023-04-09] MEDS: THIAMINE HCL 100 MG TABLET PO SCH (08:32)
[2023-04-09] MEDS: MIDODRINE HCL 5 MG TABLET PO SCH ×3 (08:32→22:16)
[2023-04-09] MEDS: FOLIC ACID 1 MG TABLET PO SCH (08:32)
[2023-04-09] MEDS: INSULIN -REGULAR HUMAN 50 UNIT/0.5 ML ML SQ SCH ×4 (08:46→21:29)
[2023-04-09] MEDS ORDERED: FUROSEMIDE 40 MG/4 ML VIAL IV STA (09:15)
[2023-04-09 09:24] LABS: Potassium 3.9 mEq/L (3.5-5.1)
[2023-04-09] MEDS ORDERED: SPIRONOLACTONE 25 MG TABLET PO STA (09:30)
[2023-04-09] MEDS: LORazepam 2 MG/ML VIAL IV PRN ×4 (10:43→22:41)
[2023-04-09] MEDS ORDERED: TOLVAPTAN 15 MG TABLET PO ONE (12:00)
[2023-04-09] MEDS: FERROUS SULFATE 325 MG TAB PO SCH ×2 (12:30→21:30)
[2023-04-09 12:36] LABS: Hematocrit 22.8 % (39.6-49.0)
[2023-04-09 12:48] LABS: Potassium 3.8 mEq/L (3.5-5.1)
[2023-04-09] MEDS: COLLAGENASE 30 GM OINTMENT TOP SCH (15:00)
[2023-04-09 17:46] LABS: Potassium 3.6 mEq/L (3.5-5.1)
[2023-04-09 21:04] LABS: Potassium 3.4 mEq/L (3.5-5.1)
[2023-04-09] MEDS: INSULIN GLARGINE 100 UNIT/ML SQ SCH (21:29)
--- NOTE | 2023-04-10 00:38 | PN ---
Date of Progress Note: 04/09/2023 Chief Complaint: Generalized weakness, acute kidney injury, hyponatremia. History Of Present Illness: The patient is a 52-year-old man with past medical history significant f or diabetes mellitus complicated by right foot Charcot joint, chronic pain syndrome, PVD complicated by right foot wound, history of anemia with generalized weakness, fatigue. Previously, he was admitt ed for sepsis secondary to right foot and ankle wound infections. He has had a wound VAC. He is und ergoing wound care. He is referred to Nephrology for acute kidney injury and hyponatremia. Serum cr eatinine level on admission was 1.5. Baseline creatinine level back in January 2023 was ranging from 0.6 to 0.9. The patient was found to have hyponatremia. Sodium level was 120 on admission and improved gradually to 127 over the last 48 hours. The patient has also hyperglycemia. The patient is on antibiotics. Chest x-ray showed mild congestive heart failure. He reports drinkin g alcoholic beverages recently, and he is currently on protocol by primary team. Review of Systems: Denies chest pain, palpitation. Physical Examination: Lungs: Clear to auscultation bilaterally. Heart: S1, S2. Abdomen: Soft. Extremities: Dressing in place. Impression And Plan: 1.Acute kidney injury secondary to acute tubular necrosis, sepsis, hypotension. Serum creatinine le reshma increased to 1.5, is improving gradually. Urinalysis showed proteinuria, hematuria, and pyuria. The patient has mild proteinuria of 0.7 g, random urine specimen. The patient will continue midodri ne for blood pressure support and IV fluids were adjusted to control electrolyte abnormalities. 2.Urinary tract infection. Continue antibiotics. Follow up urine culture. 3.Severe septic secondary to right ankle wound infection. The patient has right Charcot foot and ch ronic wounds. Currently, he is undergoing wound care. 4.Hyponatremia, hypotonic, hypervolemic, chronic, asymptomatic. Moderate degree of hyponatremia sec ondary to high ADH state from congestive heart failure, hypotension, alcohol withdrawal, renal dysfun ction, low solute intake. Serum sodium was 120 on admission and is improving gradually. BNP is slig htly elevated. Plan is to discontinue IV fluids. The patient is to have if available. P rian is to continue midodrine for blood pressure support every 8 hours and avoid nonsteroidal anti-inf lammatory medication, though will be used for moderate pain control. 5.The patient will require diuretics and he will resume furosemide 40 mg twice a day. 6.Hypotension. Midodrine 5 mg every 8 hours. The patient had cosyntropin stimulation test, which d id not show primary adrenal insufficiency. 7.Diabetes mellitus per primary team management. 8.Alcohol abuse, protocol. 9.Anemia. Start p.o. iron and monitor iron labs. PURNIMA at this point will not be used, is not indica robert. DIXON/RUTH ANN Voice ID: [id number] Report ID: [id number]
[2023-04-10] MEDS: chlordiazePOXIDE HCl 25 MG CAP PO SCH ×5 (00:40→23:03)
[2023-04-10 05:32] LABS: Absolute Lymphocytes (CBC) 1.5 K/uL (0.7-4.9); Hematocrit 23.3 % (39.6-49.0); Lymphocytes % 23.5 % (15.3-44.8); MCV 88.1 fL (80-100); RBC Red Blood Cell Count 2.65 M/uL (4.33-5.43)
[2023-04-10 05:48] LABS: Albumin 1.8 g/dL (3.4-5.0); Bilirubin Total 0.3 mg/dL (0.2-1.0); Magnesium 2.1 mg/dL (1.6-2.4); Potassium 3.7 mEq/L (3.5-5.1); Protein, Total 7.1 g/dL (6.4-8.2)
[2023-04-10] MEDS: CEFEPIME 2 GM in NA CHLORIDE 0.9% 100 ML IV SCH ×3 (05:54→23:02)
[2023-04-10 06:30] VITALS: BMI 35.2
--- NOTE | 2023-04-10 06:49 | P.PN ---
Date of Service: 04/10/23 Subjective: feeling better today nursing report some frustration/agitation last night denies abdominal pain, no BM for ~2 days, +flatus afebrile ROS: 10 point ROS as noted above, otherwise negative Physical Exam: GEN: Alert, Oriented x3, NAD HEENT: Normal conjunctiva, sclera anicteric CV: Regular rate and rhythm, BLE edema; R>L Pulm: Nonlabored respirations on room air, diminished at bases b/l ABD: Soft, nontender, nondistended Integumentary: right lower leg/foot chronic wound with dressing, foul smelling Neuro: Normal speech, normal affect vitals reviewed Problem List: Severe Sepsis, secondary to right charcot foot Staph Aureus bacteremia Hyponatremia Pulmonary edema History of Charcot's foot with right foot wound Microcytic anemia NIDDM2 with hyperglycemia Hypertension History of PVD Right lower extremity pressure ulcer Alcohol use disorder Nicotine Abuse Severe Sepsis, secondary to right charcot foot Staph Aureus bacteremia History of Charcot's foot Xray Ankle (04/07): significant destructive changes seen involving the ankle and foot. Very ostial thickening is present. Moderate flatfoot deformity. Small calcaneal spurs. This is compatible with a Charcot joint. Blood culture(04/07): Staph Aureus Repeat Blood culture(04/09): Pending echo ordered Urine culture: Mixed Chela ID consulted Continue cefepime and vanc (04/07-) pending cultures afebrile without leukocytosis Dr Torres consulted - covering for Dr. Hays PRN pain medication PT consult fall precautions SHERI Hyponatremia Nephrology consulted Monitor renal function improving Microcytic anemia, severe iron deficiency Monitor H&H, tranfuse if hgb < 7 hgb 7.3 -> 7.6 no bleed avoiding iv iron in setting of bacteremia / severe sepsis pulm edema CXR (04/07): Mild CHF pattern unclear if has history of chf Echo ordered 04/10 NIDDM2 with hyperglycemia BS monitoring with SSI Hypertension borderline, low-normal; monitor closely History of PVD supportive care Alcohol use Last time he had a drink was ~3 days prior to admission and last time he went an entire week without a sip of alcohol was ~2 weeks ago per patient Does states he used to drink heavily in the past CIWA precautions Nicotine Abuse smoking cessation advised. Placed on nicoderm patch 04/09 Code: Full Dispo: ICU care, anticipate downgrade in next 24hrs, Home in ~2-3 days Pending repeat cultures without growth
[2023-04-10] MEDS ORDERED: POTASSIUM 25 MEQ EFFERV TAB PO ONE (07:00)
[2023-04-10] MEDS: INSULIN -REGULAR HUMAN 50 UNIT/0.5 ML ML SQ SCH ×4 (07:59→20:52)
[2023-04-10] MEDS: FOLIC ACID 1 MG TABLET PO SCH (08:00)
[2023-04-10] MEDS: THIAMINE HCL 100 MG TABLET PO SCH (08:00)
[2023-04-10] MEDS: FERROUS SULFATE 325 MG TAB PO SCH ×2 (08:00→20:52)
[2023-04-10] MEDS: PANTOPRAZOLE 40MG TABLET PO SCH ×2 (08:00→18:09)
[2023-04-10] MEDS: MIDODRINE HCL 5 MG TABLET PO SCH ×3 (08:00→23:03)
[2023-04-10] MEDS: NICOTINE 21 MG/PAT TD SCH (08:00)
[2023-04-10] MEDS: COLLAGENASE 30 GM OINTMENT TOP SCH (14:59)
[2023-04-10] MEDS: VANCOMYCIN 1.75 GM in NA CHLORIDE 0.9% 500 ML IVPB SCH (18:10)
[2023-04-10] MEDS: INSULIN GLARGINE 100 UNIT/ML SQ SCH (20:52)
--- NOTE | 2023-04-11 00:42 | PN ---
Date of Progress Note: 04/10/2023 Chief Complaint: Generalized weakness, acute kidney injury, hyponatremia. Subjective: The patient is a 52-year-old man with past medical history significant for diabetes jennifer itus, complicated by right foot Charcot joint, chronic pain syndrome, PVD, complicated by right foot wound, history of anemia, generalized weakness, and fatigue. Previously, he was admitted for sepsis secondary to right foot and ankle wound infection. He had wound VAC. He is undergoing wound care. He was found to have acute kidney injury and hyponatremia. Creatinine level on admission was 1.5. B aseline creatinine level in January 2023 was ranging from 0.6 to 0.9. The patient was found to have hypo natremia. Sodium level was 120 on admission and improved gradually to 127 and the patient had also h yperglycemia. The patient is on antibiotics. A chest x-ray show mild congestive heart failure. The patient reported drinking alcoholic beverages recently. Review of Systems: Denies chest pain or palpitation. Physical Examination: Lungs: Clear to auscultation bilaterally. Heart: S1, S2. Abdomen: Soft, benign. EXTREMITIES: Dressing in place. Impression And Plan: 1.Acute kidney injury secondary to acute tubular necrosis. The patient has sepsis and he developed hypotension. Currently, blood pressure is in good control. He is hemodynamically stable. Serum cre atinine level was found to be elevated up to 1.5, is improving. Urinalysis showed proteinuria, hemat uria, and pyuria. The patient is on antibiotics. The patient has mild proteinuria of 0.7 g per 24 h ours. The patient will continue midodrine for blood pressure support and IV fluids were adjusted to control electrolyte abnormalities. 2.Urinary tract infection. Continue antibiotics. Follow up urine culture. 3.Severe sepsis secondary to right foot wound infection. The patient had right Charcot foot and chr onic wounds. Continue wound care. 4.Hyponatremia, hypotonic, hypervolemic, chronic, and asymptomatic. Moderate degree hyponatremia se condary to high ADH state from congestive heart failure, hypotension, alcohol withdrawal, renal dysfu nction, low solute intake. Serum sodium was 120 on admission and is improving gradually. BNP slight ly elevated. Plan is to titrate down the IV fluids and monitor blood pressure. EB/MODL Voice ID: [id number] Report ID: [id number]
[2023-04-11 04:43] LABS: Hematocrit 22.8 % (39.6-49.0); MCV 88.3 fL (80-100); MPV 7.2 fL (7.6-11.3); RBC Red Blood Cell Count 2.59 M/uL (4.33-5.43)
[2023-04-11 05:02] LABS: ALT/SGPT < 10 U/L (16-61); AST/SGOT 14 U/L (15-37); Albumin 1.8 g/dL (3.4-5.0); Alkaline Phosphatase 114 U/L (45-117); BUN Blood Urea Nitrogen 22 mg/dL (7-18); Bicarbonate 25 mEq/L (21-32); Bilirubin Total 0.2 mg/dL (0.2-1.0); Glomerular Filtration Rate 69 ml/min (=/>90); Glucose Level 219 mg/dL (74-106); Potassium 3.6 mEq/L (3.5-5.1); Sodium Level 140 mEq/L (136-145)
[2023-04-11] MEDS: chlordiazePOXIDE HCl 25 MG CAP PO SCH ×3 (05:13→17:51)
[2023-04-11] MEDS: CEFEPIME 2 GM in NA CHLORIDE 0.9% 100 ML IV SCH (05:13)
--- NOTE | 2023-04-11 06:55 | P.PN ---
Date of Service: 04/11/23 Subjective: agitated/frustrated overnight, threatening nurses, pulling at wires, given librium patient was sleeping this morning afebrile ROS: unable to obtain as patient was sleeping Physical Exam: GEN: Alert, Oriented x3, NAD HEENT: Normal conjunctiva, sclera anicteric CV: Regular rate and rhythm, BLE edema; R>L Pulm: Nonlabored respirations on room air, diminished at bases b/l ABD: Soft, nontender, nondistended Integumentary: right lower leg/foot chronic wound with dressing Neuro: Normal speech, normal affect vitals reviewed Problem List: Severe Sepsis, secondary to ulcer of right charcot foot Staph Aureus bacteremia Hyponatremia Pulmonary edema History of Charcot's foot with right foot wound Microcytic anemia NIDDM2 with hyperglycemia Hypertension History of PVD Right lower extremity pressure ulcer Alcohol use disorder Nicotine Abuse Severe Sepsis, secondary to right charcot foot Staph Aureus bacteremia History of Charcot's foot Xray Ankle (04/07): significant destructive changes seen involving the ankle and foot. ostial thickening is present. Moderate flatfoot deformity. Small calcaneal spurs. This is compatible with a Charcot joint. Blood culture(04/07): Staph Aureus Repeat Blood culture(04/09): Pending echo ordered to r/o endocarditis Urine culture: Mixed Chela ID consulted transition to ancef 04/[address] Torres consulted - covering for Dr. Hays PRN pain medication PT consult fall precautions SHERI Hyponatremia Nephrology consulted Monitor renal function improving Microcytic anemia, severe iron deficiency Monitor H&H, tranfuse if hgb < 7 hgb 7.3 -> 7.6 no bleed avoiding iv iron in setting of early bacteremia / severe sepsis pulm edema CXR (04/07): Mild CHF pattern unclear if has history of chf Echo ordered 04/10 NIDDM2 with hyperglycemia BS monitoring with SSI Hypertension borderline, low-normal; monitor closely History of PVD supportive care Alcohol use Last time he had a drink was ~3 days prior to admission and last time he went an entire week without a sip of alcohol was ~2 weeks ago per patient Does states he used to drink heavily in the past CIWA precautions Nicotine Abuse smoking cessation advised. Placed on nicoderm patch 04/09 Code: Full Dispo: downgrade from icu
[2023-04-11 07:15] LABS: Phosphorus 3.2 mg/dL (2.5-4.9)
[2023-04-11] MEDS ORDERED: POTASSIUM CL SA 10 MEQ TAB PO ONE (09:00)
--- NOTE | 2023-04-11 09:18 | P.PN ---
Date of Service: 04/11/23 Chief Complaint: Weakness Subjective: Patient seen and examined at bedside. Denies any new or worsening complaints. Patient states he wants to go home and that he feels fine. No acute events reported overnight. Physical Examination Temp Pulse Resp BP Pulse Ox 97.2 F 87 22 H 127/96 H 95 04/11/23 08:00 04/11/23 10:00 04/11/23 10:00 04/11/23 09:00 04/11/23 06:00 General: Alert, In no apparent distress, Oriented x3 HEENT: Atraumatic, Normocephalic Neck: Supple, JVD not distended Respiratory: Normal air movement, Diminished, breathing comfortably on room air. Cardiovascular: Regular rate/rhythm, BLE R>L. Gastrointestinal: Normal bowel sounds, Soft and benign Integumentary: wound on right ankle lateral aspect stage 4. Charcot foot. Neurological: Normal speech. Laboratory Data - Reviewed Microbiology Data - Reviewed Imagings Data: - XR Chest 04/07: "Mild interstitial pulmonary edema. The heart is moderately enlarged. No displaced fractures." - XR Right Ankle 04/07: "There is significant destructive changes seen involving the ankle and foot. Very ostial thickening is present. Moderate flatfoot deformity. Small calcaneal spurs. This is compatible with a Charcot joint" Medications List - Reviewed Assessment and Plan Problem List Diabetes Mellitus type II Hypertension Obesity Anemia PVD Sepsis Bacteremia Charcot foot Charcot foot with chronic nonhealing wound RLE Bacteremia Sepsis, resolved - Blood cultures 04/07: Staphylococcus aureus - Urine culture 04/07: Mixed ck ; colony count <10,000 CFU/mL - Currently on Cefepime and Vancomycin (started 04/07) - Patient sees Dr. Hays for wound care as outpatient. He had a wound vac in place upon arrival. Medical management vs possible amputation. Pending general surgery input. Leukocytosis resolved (WBC 6.3) Afebrile Recommendations - MSSA Bacteremia: Started on Cefazolin IV (04/11) - Cefepime and Vancomycin discontinued - Follow up with repeat blood cultures - Follow up with general surgery for input regarding amputation or medical management as he has reportedly been seeing this patient at wound care clinic. Case discussed with Socorro Goodwin
[2023-04-11] MEDS: COLLAGENASE 30 GM OINTMENT TOP SCH (09:41)
[2023-04-11] MEDS: NICOTINE 21 MG/PAT TD SCH (09:41)
[2023-04-11] MEDS: INSULIN -REGULAR HUMAN 50 UNIT/0.5 ML ML SQ SCH ×4 (09:42→21:00)
[2023-04-11] MEDS: FERROUS SULFATE 325 MG TAB PO SCH ×2 (09:42→22:21)
[2023-04-11] MEDS: MIDODRINE HCL 5 MG TABLET PO SCH ×3 (09:42→22:21)
[2023-04-11] MEDS: FOLIC ACID 1 MG TABLET PO SCH (09:42)
[2023-04-11] MEDS: PANTOPRAZOLE 40MG TABLET PO SCH ×2 (09:42→17:49)
[2023-04-11] MEDS: THIAMINE HCL 100 MG TABLET PO SCH (09:42)
[2023-04-11] MEDS: VANCOMYCIN 1.75 GM in NA CHLORIDE 0.9% 500 ML IVPB SCH (10:00)
[2023-04-11] MEDS: CEFAZOLIN SODIUM 2 GM in NA CHLORIDE 0.9% 100 ML IVPB SCH ×2 (12:58→22:21)
[2023-04-11] MEDS: LORazepam 2 MG/ML VIAL IV PRN (12:59)
[2023-04-11] MEDS ORDERED: D5W 1,000 ML IV SCH (14:00)
[2023-04-11 20:55] LABS: Potassium 3.7 mEq/L (3.5-5.1)
[2023-04-11] MEDS: INSULIN GLARGINE 100 UNIT/ML SQ SCH (22:20)
[2023-04-12] MEDS: chlordiazePOXIDE HCl 25 MG CAP PO SCH ×5 (00:13→20:26)
--- NOTE | 2023-04-12 02:45 | PN ---
Date of Progress Note: 04/11/2023 Chief Complaint: Hyponatremia, acute kidney injury, generalized weakness. Subjective: Patient was admitted to ICU. He is a 52-year-old man with past medical history signific ant for diabetes mellitus, complicated by right foot Charcot joint, chronic pain syndrome, PVD, compl icated by right foot wound, sepsis, history of anemia, generalized weakness, fatigue. Previously, he was admitted for sepsis secondary to right foot and ankle infection. He had wound VAC. He is curre ntly being followed by Infectious Disease and he is undergoing wound care. Baseline creatinine level back in January 2023 is was ranging from 0.6-0.1. On admission, creatinine was elevated up to 1.5. Sod ium level was 120 on admission, gradually improved to 127 and patient at the same time had hyperglyce will. He was treated with insulin. He received IV fluids, normal saline for hyponatremia treatment. Patient is on antibiotics for sepsis and wound infection. Review of Systems: Denies chest pain, palpitation. Physical Examination: Lungs: Clear to auscultation bilaterally. Heart: S1, S2. Abdomen: Soft. Extremities: Dressing in place. Impression And Plan: 1.Acute kidney injury secondary to acute tubular necrosis. Patient has sepsis and he developed hypo tension. Currently, blood pressure is in good control. He requires although midodrine and IV fluids for blood pressure support. Serum creatinine level was found to be elevated up to 1.5. Urinalysis showed proteinuria, hematuria, and pyuria. Patient is on antibiotics for urinary tract infection. P atient has mild nonnephrotic range proteinuria of 0.7 g per 24 hours. The patient will continue mido drine for blood pressure support and IV fluids were adjusted to control electrolyte abnormalities. 2.Urinary tract infection. Continue antibiotics. 3.Severe sepsis secondary to right foot wound infection. Patient had right Charcot foot and chronic wounds. Continue wound care. 4.Hyponatremia, hypotonic, hypervolemic, chronic and asymptomatic. Moderate degree hyponatremia sec ondary to high ADH state from congestive heart failure, hypotension, alcohol withdrawal, low solute i ntake. Serum sodium was 120 on admission. Plan is to stop fluid restriction. Adjust IV fluids to m aintain adequate correction of hyponatremia. EB/MODL Voice ID: [id number] Report ID: [id number]
[2023-04-12] MEDS: CEFAZOLIN SODIUM 2 GM in NA CHLORIDE 0.9% 100 ML IVPB SCH ×3 (04:02→20:27)
[2023-04-12 04:54] LABS: Hematocrit 22.6 % (39.6-49.0); MPV 6.9 fL (7.6-11.3); RBC Red Blood Cell Count 2.57 M/uL (4.33-5.43)
[2023-04-12 05:05] LABS: AST/SGOT 13 U/L (15-37); Albumin 1.8 g/dL (3.4-5.0); Alkaline Phosphatase 108 U/L (45-117); BUN Blood Urea Nitrogen 17 mg/dL (7-18); Bicarbonate 25 mEq/L (21-32); Bilirubin Total 0.2 mg/dL (0.2-1.0); Glomerular Filtration Rate 72 ml/min (=/>90); Glucose Level 139 mg/dL (74-106); Phosphorus 3.4 mg/dL (2.5-4.9); Potassium 3.7 mEq/L (3.5-5.1); Protein, Total 6.7 g/dL (6.4-8.2); Sodium Level 141 mEq/L (136-145)
[2023-04-12 05:06] LABS: ALT/SGPT < 10 U/L (16-61); Magnesium 1.9 mg/dL (1.6-2.4)
[2023-04-12] MEDS: MIDODRINE HCL 5 MG TABLET PO SCH ×2 (07:10→15:10)
--- NOTE | 2023-04-12 07:16 | RAD REPORT ---
EXAM DESCRIPTION: US - Renal Ultrasound-Complete - 04/12/2023 12:17 am CLINICAL HISTORY: joanna, hematuria COMPARISON: [facility] Protocol dated 07/30/2021 FINDINGS: Both kidneys are normal in size, shape and echotexture. The right kidney measures 13.7 cm. No hydronephrosis, focal mass or perinephric fluid. The left kidney measures 13.9 cm. No hydronephrosis, focal mass or perinephric fluid. The bladder is decompressed via Ogden catheter. IMPRESSION: Unremarkable renal sonogram. No hydronephrosis.
[2023-04-12] MEDS: INSULIN -REGULAR HUMAN 50 UNIT/0.5 ML ML SQ SCH ×4 (07:30→20:28)
[2023-04-12] MEDS: PANTOPRAZOLE 40MG TABLET PO SCH ×2 (07:30→16:30)
[2023-04-12] MEDS: FERROUS SULFATE 325 MG TAB PO SCH ×2 (08:11→20:26)
[2023-04-12] MEDS: THIAMINE HCL 100 MG TABLET PO SCH (08:11)
[2023-04-12] MEDS: FOLIC ACID 1 MG TABLET PO SCH (08:11)
[2023-04-12] MEDS ORDERED: POTASSIUM CL SA 10 MEQ TAB PO ONE (09:00)
[2023-04-12] MEDS: COLLAGENASE 30 GM OINTMENT TOP SCH (09:00)
--- NOTE | 2023-04-12 09:07 | P.PN ---
Date of Service: 04/12/23 Chief Complaint: Weakness Subjective: No acute events reported overnight. No new complaints. Scheduled for right BKA today. Physical Examination Temp Pulse Resp BP Pulse Ox 98.0 F 79 21 H 124/80 95 04/12/23 04:00 04/12/23 06:00 04/12/23 06:00 04/12/23 06:00 04/11/23 06:00 General: Alert, In no apparent distress, Oriented x3 HEENT: Atraumatic, Normocephalic Neck: Supple, JVD not distended Respiratory: Normal air movement, Diminished, breathing comfortably on room air. Cardiovascular: Regular rate/rhythm, BLE R>L. Gastrointestinal: Normal bowel sounds, Soft and benign Integumentary/Msk: right lateral ankle wound stage 4. R Charcot foot. Neurological: Normal speech. Laboratory Data - Reviewed Microbiology Data - Reviewed Imagings Data: - XR Chest 04/07: "Mild interstitial pulmonary edema. The heart is moderately enlarged. No displaced fractures." - XR Right Ankle 04/07: "There is significant destructive changes seen involving the ankle and foot. Very ostial thickening is present. Moderate flatfoot deformity. Small calcaneal spurs. This is compatible with a Charcot joint" Medications List - Reviewed Assessment and Plan Problem List Diabetes Mellitus type II Hypertension Obesity Anemia PVD Sepsis, resolved Bacteremia Charcot foot Charcot foot with chronic nonhealing wound RLE MSSA Bacteremia - Blood cultures 04/07: Staphylococcus aureus - Urine culture 04/07: Mixed ck ; colony count <10,000 CFU/mL - Previously on Cefepime and Vancomycin (04/07-04/11). Switched to Cefazolin 04/11 - Patient sees Dr. Hays for wound care as outpatient. Medical management vs possible amputation; Pending general surgery input. Leukocytosis resolved Afebrile Recommendations - MSSA Bacteremia: On Cefazolin IV (04/11-). Continue antibiotic therapy x 2 weeks. - Osteomyelitis R foot: scheduled for BKA today Case discussed with Socorro Goodwin
[2023-04-12] MEDS: NICOTINE 21 MG/PAT TD SCH (09:10)
--- NOTE | 2023-04-12 10:09 | RAD REPORT ---
EXAM DESCRIPTION: [facility] Protocol - 04/12/2023 9:48 am CLINICAL HISTORY: hematuria, ojanna COMPARISON: [facility] Protocol dated 07/30/2021 TECHNIQUE: CT of the abdomen and pelvis was performed. All CT scans are performed using dose optimization technique as appropriate and may include automated exposure control or mA/KV adjustment according to patient size. FINDINGS: Lower chest: Interlobular septal thickening. Liver: No acute abnormality or suspicious lesions. Biliary: Cholelithiasis. Stomach: No significant focal abnormality. Duodenum: No significant focal abnormality. Pancreas: No significant abnormality. Spleen: Splenomegaly. Adrenal: No suspicious lesions. Kidney/ureter: No hydronephrosis. No renal calculi. Retroperitoneum: No retroperitoneal adenopathy. Vascular: No aneurysm. Right common iliac vein stent. Atherosclerosis. Bowel: No significant focal abnormality. Peritoneum: Large right inguinal lymph nodes such as one that measures 1.6 cm is unchanged. Bladder: Circumferential thickening of the bladder. Decompressed via Ogden catheter. Reproductive: No adnexal masses. Bones: Increasing destructive endplate changes at L5-S1. Remote left-sided rib fractures. Other: n/a IMPRESSION: 1. No renal or ureteral calculi. No hydronephrosis. Bladder wall thickening which is non specific. The bladder is decompressed via Ogden catheter. 2. Increased joint space narrowing and endplate irregularity at L5-S1 could reflect progressive degen erate disc disease. Discitis-osteomyelitis could appear similar.
[2023-04-12] MEDS ORDERED: NA CHLORIDE 0.9% 1,000 ML ONE ×3 (11:18→15:37)
[2023-04-12] MEDS ORDERED: CEFAZOLIN SODIUM 2 GM/VIAL ONE (11:18)
[2023-04-12] MEDS ORDERED: FENTANYL CITR 100 MCG/2 ML ONE ×3 (11:37→13:24)
[2023-04-12] MEDS ORDERED: MIDAZOLAM HCL 2 MG/2 ML INJ ONE ×2 (11:37→11:59)
[2023-04-12] MEDS ORDERED: LIDOCAINE 2% MPF 5 ML VIAL ONE ×3 (11:37→12:35)
[2023-04-12] MEDS ORDERED: dexAMETHasone 4 MG/ML VIAL ONE (11:38)
[2023-04-12] MEDS ORDERED: BUPIVACAINE 0.25% PF 30 ML VIAL ONE (11:42)
[2023-04-12] MEDS ORDERED: propofoL 200 MG/20 ML VIAL IV ONE (11:59)
[2023-04-12] MEDS ORDERED: ONDANSETRON 4 MG/2 ML VIAL ONE (12:00)
[2023-04-12] MEDS ORDERED: Phenylephrine HCl 10 MG/ML 1 ML VIAL ONE (13:12)
[2023-04-12] MEDS: BUPIVACAINE 0.25% PF 30 ML VIAL ONE ×2 (13:43→13:44)
--- NOTE | 2023-04-12 14:41 | P.PN ---
Subjective Date of Service: 04/12/23 Chief Complaint: Weakness Patient has no new complaint today. No issues overnight. Physical Examination - Vital Signs Temperature: 96.9 F Blood Pressure: 119/77 Pulse: 75 Respirations: 25 Pulse Ox (%): 95 Assessment And Plan - Plan Physical Exam: GEN: Alert, Oriented x3, NAD HEENT: Normal conjunctiva, sclera anicteric CV: Regular rate and rhythm, BLE edema; R>L Pulm: Clear to auscultation ABD: Soft, nontender, nondistended Integumentary: right lower leg/foot chronic wounds with dressing Neuro: Normal speech, normal affect vitals reviewed Problem List: Severe Sepsis, secondary to ulcer of right charcot foot Staph Aureus bacteremia Hyponatremia Pulmonary edema History of Charcot's foot with right foot wound Microcytic anemia NIDDM2 with hyperglycemia Hypertension History of PVD Right lower extremity pressure ulcer Alcohol use disorder Nicotine Abuse Severe Sepsis, secondary to right charcot foot Staph Aureus bacteremia History of Charcot's foot Xray Ankle (04/07): significant destructive changes seen involving the ankle and foot. ostial thickening is present. Moderate flatfoot deformity. Small calcaneal spurs. This is compatible with a Charcot joint. Blood culture(04/07): Staph Aureus Repeat Blood culture(04/09): Pending echo to r/o endocarditis is pending Urine culture: Mixed Chela ID is following. Antibiotics transitioned to ancef 04/11 afebrile without leukocytosis Patient agreed to below-knee amputation. He is scheduled for surgery today. PRN pain medication PT. SHERI Hyponatremia Nephrology consulted Renal function is improved Continue to monitor. Microcytic anemia, severe iron deficiency Monitor H&H, tranfuse if hgb < 7 hgb 7.3 -> 7.6 no bleed avoiding iv iron in setting of early bacteremia / severe sepsis. pulm edema CXR (04/07): Mild CHF pattern unclear if has history of chf Echo is pending. NIDDM2 with hyperglycemia BS monitoring with SSI Hypertension borderline low BP. monitor closely History of PVD supportive care Alcohol use CIWA precautions Nicotine Abuse smoking cessation advised. Placed on nicoderm patch 04/09 Code: Full DVT prophylaxis: Lovenox
--- NOTE | 2023-04-12 15:16 | P.OP ---
Preoperative diagnosis: RIGHT Lower Extremity Osteomyelitis / Infection Postoperative diagnosis: RIGHT Lower Extremity Osteomyelitis / Infection Primary procedure: RIGHT Below the Knee Amputation Anesthesia: GETA + Block Estimated blood loss: 100cc Specimen: RIGHT lower extremity and additional tissue Findings: Ischemic changes to RIGHT lower extremity, many collaterals Complications: None Drain(s): ISRAEL drain (10mm Flat ISRAEL) Transferred to: ICU Condition: Fair
[2023-04-12] MEDS: HYDROMORPHONE HCL 1 MG/ML INJ ONE ×2 (15:45→15:50)
--- NOTE | 2023-04-12 15:52 | P.PN ---
Subjective Date of Service: 04/12/23 Chief Complaint: Weakness Subjective: Other (He underwent R BKA today.) Physical Examination - Vital Signs Temperature: 96.9 F Blood Pressure: 119/77 Pulse: 75 Respirations: 25 Pulse Ox (%): 95 - Physical Exam General: Other (appears as his stated age) HEENT: Atraumatic, Normocephalic Neck: Supple, JVD not distended Respiratory: Other (symmetric chest expansion) Cardiovascular: No rubs, No murmurs Gastrointestinal: Soft and benign, No rebound Musculoskeletal: Other (+R BKA) Integumentary: No warmth Neurological: Normal tone Urinary: Other (no bladder distention) External genitalia: Deferred Rectal: Deferred Assessment And Plan - Plan # SHERI 2/2 ATN/sepsis/hypotension SCr 1.2 on admission, increased to 1.5, improved back to 1.2 currently Baseline serum creatinine 0.6-0.9 as of 01/18/2023 Urinalysis with proteinuria, hematuria, pyuria Urine chemistry showing secondary hyperaldosteronism Has mild paranoia 0.7 g on randomly PCR BNP significant elevated. Dc Na-containing IVF. Cont midodrine. MAP goal > 70-80. Abx, wound, care, midodrine # Hypotension Hx of Htn Cosyntropin stimulation test showed no evidence of primary adrenal insufficiency no indication for stress dose steroids Midodrine 5 mg po q8h # Severe sepsis 2/2 R ankle wound infection Hx of DM2, PVD, R charcot foot w/ chronic wound, on wound vac at home S/p R BKA on 04/12 Per other services # Hypotonic, hypervolemic, chronic, symptomatic, moderate-degree hyponatremia 2/2 high ADH state from pain/CHF/hypotension/etoh withdrawal + renal dysfxn + low solute intake Serum Na 120 on adm, now back to normal BNP sig elevated. Urine chem showed secondary hyperaldo. Monitor # DM2 Mngt per primary team # Anemia Iron panel showed iron deficiency but with hyperferritinemia Avoid IV iron Cont po iron bid PURNIMA not indicated Physician Review: Patient Assessed, Agree with Above Assessment and Plan
[2023-04-12 17:24] LABS: Absolute Lymphocytes (CBC) 0.6 K/uL (0.7-4.9); Hematocrit 23.6 % (39.6-49.0); Lymphocytes % 10.7 % (15.3-44.8); RBC Red Blood Cell Count 2.62 M/uL (4.33-5.43)
--- NOTE | 2023-04-12 17:56 | OP ---
Date of Procedure: 04/12/2023 Surgeon: Franklyn Hays MD, Brief History Of Present Illness: The patient is a 52-year-old male, known to me from clinic where I saw him for over 3 years with a chronic right lower extremity wound, which were successfully able to heal out using various techniques including wound VAC, Dakin solution, Vashe, Santyl, multiple debri dements, surgical intervention, and he had a Charcot foot from the time I met him and it continued to wax and wane. He would often go months to almost a year without having any issues related and then he would occasionally have multiple episodes within a year of recurrent wounds to his right foot and ankle area, sometimes involving the mid foot, the heel and various areas of the foot which required m ultiple debridements. He has multiple medical comorbidities as per his medical record. He ultimatel y had some issue after he fell at home and his found him, ultimately bring him to the hospital a fter he had altered mental status and he was found to have infection and signs of sepsis. Ultimately , the source of the sepsis was likely related to his foot as it appeared he had a compound fracture. When I saw him in the hospital in the ICU, his bone/fibula was exposed. He had disarticulation of t he foot from the bones of the right lower extremity completely and the area appeared to have discharg e consistent with an ongoing infection. As such, I discussed the possibility and recommendation of a [id number]-fnj-[id number] amputation of this area. We had discussed this on previous occasions and with his wi fe as well, who ultimately agreed. All parties agreed to proceed. I therefore explained the risks, benefits, and alternatives of right dfrkw-hwx-licm amputation including, but not limited to bleeding, infection, damage to surrounding tissues, phantom limb pain, nerve injury, blood clots, strokes, hea rt attacks, ongoing need for wound care, possible revisions of his stump, and possible need for [facility] surgical intervention. The patient and his agreed to proceed as indicated. Preoperative Diagnosis: Right lower extremity osteomyelitis/infection. Postoperative Diagnosis: Right lower extremity osteomyelitis/infection. Procedure Performed: Right [id number]-[id number]-[id number] amputation. Anesthesia: General endotracheal plus block. Estimated Blood Loss: 100 cc. Specimen: Right lower extremity and additional debridement tissue. Findings: 1.Ischemic changes to the right lower extremity. 2.Many vascular collaterals were noted. 3.Significant swelling to the lower extremity was chronic, but appeared to have an acute component a s well with edematous changes as I dissected through the tissues. Complications: None. Drains: Implant 10 mm flat ISRAEL drain. Disposition: The patient was transferred back to the ICU in fair condition. Procedure In Detail: After informed consent was obtained as described above, the patient was prepped and draped in the usual sterile fashion. The patient received a preoperative block with the Anesthe grace team here. I tested the block and found to be the skin level affected; however, upon cutting bryant n into the fascial planes, the patient appeared to have some movement and as such, the patient was gi khris general anesthesia at this point. I therefore exsanguinated the leg using an Esmarch at this poi nt and brought the tourniquet up, which was placed preoperatively to 300 mmHg. Entire tourniquet liza e was 62 minutes. The procedure was then continued as the tourniquet was placed. I dissected circum ferentially around after marking the leg preoperatively in a posterior gastrocnemius flap type orient ation. I cut down using a 10 blade down through the premarked on the anterior tibia proximally to 4 cm distal to the tibial plateau and extended it all along the lateral compartments bilaterally and do wn near the area of the Achilles tendon using a 15 blade. I then used electrocautery to dissect down through the anterior compartments to the tibialis anterior and the extensor compartment using electr ocautery. The muscles appeared to be slightly pale in this area possibly due to the Esmarch as well as chronic ongoing changes with the patient's known medical history of peripheral vascular disease. I continued to dissect circumferentially around down to the tibia and circumferentially around the ti esteban at this point. I used a periosteal elevator to push back the periosteum as proximally as to 3 cm beyond the presumed cut space and area of demarcation. I then dissected down to the fibula and appr oximately 1.5 to 2 cm above the planned tibial transection place, the tibia was cleansed and the kirit osteum was pushed back from the tibia in a similar fashion at this point. I then continued the disse ction beyond the interosseous membrane sparing blood vessels at this point. I continued to circumfer entially dissect down until I achieved the peroneal vessels and neurovascular bundle. I th e nerve at this point from the peroneal compartment and trimmed it after putting it on tension to all ow to retract back to the musculature. I injected with Marcaine 0.25% as well and suture tied at thi s point. It was allowed to retract extremity at this point. I stick tied the arterial vessel with 2 -0 stick ties and free ties reinforcing this of a 2-0 silk suture at this point. I then continued wi th the venous vessel and peroneal bundle and individually ligated this using the same said 2-0 silk s uture. Both the proximal and distal sides were ligated with good hemostasis. At this point, I disse cted around the anterior tibial compartment as well and individually ligated the artery vein and the artery was ligated using a 2-0 silk suture and the anterior tibial nerve was also individually ligate d after being placed on tension and was suture tied proximally and distally with a 2-0 nylon suture, placed on tension, injected with 0.25% Marcaine, and allowed to retract. The artery after being stic k tied was also individually free tied using a 2-0 silk suture and ligated at this point and the vein concomitantly was free tied and ligated at this point. I then dissected down into the posterior com partment and allowed a laparotomy pad to be placed behind the tibia. The periosteum was pushed back in the posterior aspect as well, both periosteal elevator as well as a laparotomy pad. I then used t he bone saw keeping it hydrated to cut and transect the tibia at this level. I then used the bone cu tter to transect the fibula after passing a laparotomy pad behind this in a similar fashion and perio steum being swept superior. The tibia was trimmed superior approximately 1.5 to 2 cm above the tibia at this point. I then proceeded to bevel the anterior aspect of the tibia using the bone saw and th is portion of bone was sent off. I then used a rasp to bevel all the edges of the tibia and fibula a t this point around the edges. At this point, I elevated the leg and used the Reuben knife to transe ct down the posterior aspect of the leg. The posterior tibial vessels were encountered at this point and they were after ligating the stump. The stump was passed off. The posterior vessels were then isolated, surrounded, and individually addressed. The artery was stick tied with a 2-0 silk suture o n the proximal side and the vein and distal aspect of the artery were free tied with a 2-0 silk sutur e and the posterior tibial nerve at this point was also individually tied, injected with 0.25% Marcai ne, and allowed to retract at this point. The remainder of the flap was inspected at this point. Th e soleus was individually dissected free as there was residual soleus muscle from the gastr ocnemius muscle and individually ligated using electrocautery and small tributary vessels were indivi dually suture ligated using a 3-0 silk suture. This was sent off as additional specimen. The patien t had significant swelling of the leg distally and as such I trimmed the flaps of the skin edges usin g electrocautery and trimmed additional muscular tissue as there was some swelling to the muscular pl anes at this point. I also had to trim the gastrocnemius muscle slightly back out sparing the calender wind up helper ior fascia/Achilles tissue. After this was completed, I took the tourniquet down. Total tourniquet time was 62 minutes at this point. Only small vessels were encountered at this point. Electrocauter y was used to achieve hemostasis for venous tributaries and the small arterial tributaries, which devi lloyd encounters were individual khrpqe-ad-vsqyi suture ligated using 3-0 silk sutures as they were en countered. There were multiple of these small tributaries encountered, which were individually sutur e ligated with good hemostasis. The flap was then irrigated copiously until completely dry and no ad ditional hemostatic maneuvers were required. At this point, I reapproximated the flap loosely to ens ure that good tension-free closure was achieved and this was apparent at this point. I then brought a 10 flat ISRAEL drain through the lateral aspect of the leg through a separate stab incision with a 15 b lade and secured it with a 3-0 nylon suture at this point at the skin level. I then placed it in an S type orientation in the deep plane passing and reapproximating the gastrocnemius muscle over the ti esteban and securing the fascial plane from the gastroc fascia to the anterior tibial fascia using 2-0 Vi cryl sutures in an interrupted fashion with good approximation of tissues. At this point, I brought the flap together, made some small additional trimmings of skin to allow for better flap closure, and I reapproximated the deep dermal plane using interrupted 3-0 Vicryl suture and closed the skin with a combination of interrupted ariana as well as interrupted 3-0 nylon sutures. Xeroform and sterile dressing were then applied, and the patient tolerated the procedure well without evidence of complica tion. All counts were correct at the end of the case. The patient tolerated the procedure well with out evidence of complication and transferred to PACU in good condition. All counts correct at the en d of the case. Sterile dressing was applied along with a knee immobilizer. The patient was in PACU in good condition. TK/MODL Voice ID: [id number] Report ID: [id number]
[2023-04-12] MEDS: INSULIN GLARGINE 100 UNIT/ML SQ SCH (20:27)
[2023-04-13] MEDS: HYDROCODONE/APAP 5/325 MG TAB PO PRN ×3 (00:05→20:51)
[2023-04-13] MEDS: MIDODRINE HCL 5 MG TABLET PO SCH ×4 (00:06→23:10)
[2023-04-13] MEDS: chlordiazePOXIDE HCl 25 MG CAP PO SCH ×4 (00:06→20:51)
[2023-04-13] MEDS: CEFAZOLIN SODIUM 2 GM in NA CHLORIDE 0.9% 100 ML IVPB SCH ×3 (03:55→20:52)
[2023-04-13 05:41] LABS: ALT/SGPT < 10 U/L (16-61); AST/SGOT 10 U/L (15-37); Albumin 1.9 g/dL (3.4-5.0); Alkaline Phosphatase 108 U/L (45-117); BUN Blood Urea Nitrogen 22 mg/dL (7-18); Bicarbonate 23 mEq/L (21-32); Bilirubin Total 0.2 mg/dL (0.2-1.0); Glomerular Filtration Rate 58 ml/min (=/>90); Glucose Level 277 mg/dL (74-106); Magnesium 2.1 mg/dL (1.6-2.4); Phosphorus 2.9 mg/dL (2.5-4.9); Potassium 4.6 mEq/L (3.5-5.1); Protein, Total 7.4 g/dL (6.4-8.2); Sodium Level 138 mEq/L (136-145)
[2023-04-13 05:50] LABS: Hematocrit 24.6 % (39.6-49.0); MCV 90.3 fL (80-100); RBC Red Blood Cell Count 2.72 M/uL (4.33-5.43)
[2023-04-13] MEDS: PANTOPRAZOLE 40MG TABLET PO SCH ×2 (08:18→16:51)
[2023-04-13] MEDS: THIAMINE HCL 100 MG TABLET PO SCH (08:18)
[2023-04-13] MEDS: FOLIC ACID 1 MG TABLET PO SCH (08:18)
[2023-04-13] MEDS: FERROUS SULFATE 325 MG TAB PO SCH ×2 (08:18→20:51)
[2023-04-13] MEDS: INSULIN -REGULAR HUMAN 50 UNIT/0.5 ML ML SQ SCH ×4 (08:19→21:06)
[2023-04-13] MEDS: ENOXAPARIN 40 MG/0.4 ML SQ SCH (08:19)
[2023-04-13] MEDS: NICOTINE 21 MG/PAT TD SCH (08:20)
[2023-04-13] MEDS: COLLAGENASE 30 GM OINTMENT TOP SCH (09:00)
--- NOTE | 2023-04-13 10:08 | P.PN ---
Date of Service: 04/13/23 Chief Complaint: Weakness Subjective: s/p right BKA yesterday, tolerated procedure well. Patient seen and examined at bedside. Denies nausea, vomiting or diarrhea. No chest pain, back pain or abdominal pain at this time. No shortness of breath or cough reported. Physical Examination Temp Pulse Resp BP Pulse Ox 96.9 F 75 25 H 119/77 95 04/13/23 07:51 04/13/23 07:51 04/13/23 07:51 04/13/23 07:51 04/13/23 07:51 General: Alert, In no apparent distress, Oriented x3 HEENT: Atraumatic, Normocephalic Neck: Supple, JVD not distended Respiratory: Normal air movement, Diminished, breathing comfortably on room air. Cardiovascular: Regular rate/rhythm, BLE R>L. Gastrointestinal: Normal bowel sounds, Soft and benign Integumentary/Msk: Right BKA, dressing clean dry and intact. Neurological: Normal speech. Laboratory Data - Reviewed Microbiology Data - Reviewed Imagings Data: - XR Chest 04/07: "Mild interstitial pulmonary edema. The heart is moderately enlarged. No displaced fractures." - XR Right Ankle 04/07: "There is significant destructive changes seen involving the ankle and foot. Very ostial thickening is present. Moderate flatfoot deformity. Small calcaneal spurs. This is compatible with a Charcot joint" Medications List - Reviewed Assessment and Plan Problem List Diabetes Mellitus type II Hypertension Obesity Anemia PVD Sepsis, resolved MSSA Bacteremia Charcot foot Osteomyelitis MSSA Bacteremia Charcot foot with chronic nonhealing wound RLE Osteomyelitis Right Foot - Blood cultures 04/07: Staphylococcus aureus - Urine culture 04/07: Mixed ck ; colony count <10,000 CFU/mL - Previously on Cefepime and Vancomycin (04/07-04/11). - Currently on Cefazolin 04/11 - Osteomyelitis: s/p right BKA 04/12. tolerated procedure well. Leukocytosis resolved Afebrile Recommendations - MSSA Bacteremia: Currently on Cefazolin IV. Continue antibiotic therapy for a total of 14 days. (Started on antibiotics 04/07). --> Consider switch to Cephalexin PO upon discharge to complete 14 days of antibiotics - Blood cultures negative since 04/09. Source control with right below-knee amputation by Dr. Kovacev. - Strict blood glucose control Case discussed with Socorro Goodwin
--- NOTE | 2023-04-13 13:24 | P.PN ---
Subjective Date of Service: 04/13/23 Chief Complaint: Weakness Patient has no new complaint today. No issues overnight. No fever. Status post right BKA yesterday. Physical Examination - Vital Signs Temperature: 96.9 F Blood Pressure: 106/72 Pulse: 82 Respirations: 20 Pulse Ox (%): 96 Assessment And Plan - Plan Physical Exam: GEN: Alert, Oriented x3, NAD HEENT: Normal conjunctiva, sclera anicteric CV: Regular rate and rhythm, BLE edema; R>L Pulm: Clear to auscultation ABD: Soft, nontender, nondistended Integumentary: right lower leg/foot chronic wounds with dressing Neuro: Normal speech, normal affect vitals reviewed Problem List: Severe Sepsis, secondary to ulcer of right charcot foot Staph Aureus bacteremia Hyponatremia Pulmonary edema History of Charcot's foot with right foot wound Microcytic anemia NIDDM2 with hyperglycemia Hypertension History of PVD Right lower extremity pressure ulcer Alcohol use disorder Nicotine Abuse Severe Sepsis, secondary to right charcot foot Staph Aureus bacteremia History of Charcot's foot Xray Ankle (04/07): significant destructive changes seen involving the ankle and foot. ostial thickening is present. Moderate flatfoot deformity. Small calcaneal spurs. This is compatible with a Charcot joint. Blood culture(04/07): Staph Aureus Repeat Blood culture(04/09): Pending echo to r/o endocarditis is pending Urine culture: Mixed Chela ID is following. Antibiotics transitioned to ancef 04/11 afebrile without leukocytosis Status post below-knee amputation. Wound care per surgery. PRN pain medication PT. Patient may be able to candidate for inpatient rehab. SHERI Hyponatremia Nephrology consulted Renal function is stable Continue to monitor. Microcytic anemia, severe iron deficiency Monitor H&H, tranfuse if hgb < 7 hgb 7.3 -> 7.6 no bleed avoiding iv iron in setting of early bacteremia / severe sepsis. pulm edema CXR (04/07): Mild CHF pattern Echo is pending. NIDDM2 with hyperglycemia BS monitoring with SSI Hypotension borderline low BP. monitor closely History of PVD supportive care Alcohol use CIWA precautions. Taper down Librium. Nicotine Abuse smoking cessation advised. Placed on nicoderm patch 04/09 Code: Full DVT prophylaxis: Lovenox
--- NOTE | 2023-04-13 15:46 | P.PN ---
Subjective Date of Service: 04/13/23 Chief Complaint: Weakness Subjective: No new changes Physical Examination - Vital Signs Temperature: 96.9 F Blood Pressure: 101/70 Pulse: 85 Respirations: 20 Pulse Ox (%): 96 - Physical Exam General: Other (appears as his stated age) HEENT: Atraumatic, Normocephalic Neck: Supple Respiratory: Other (symmetric chest expansion) Cardiovascular: No rubs, No murmurs Gastrointestinal: Soft and benign, No guarding Musculoskeletal: No clubbing, Other (+R BKA) Integumentary: No warmth Neurological: Normal speech, Normal tone Urinary: Other (no bladder distention) External genitalia: Deferred Rectal: Deferred Assessment And Plan - Plan # SHERI 2/2 ATN/sepsis/hypotension SCr 1.2 on admission, increased to 1.5, improved to 1.2, increased to 1.5 Baseline serum creatinine 0.6-0.9 as of 01/18/2023 Urinalysis with proteinuria, hematuria, pyuria Urine chemistry showing secondary hyperaldosteronism Has mild paranoia 0.7 g on randomly PCR BNP significant elevated. Dc Na-containing IVF. Cont midodrine. MAP goal > 70-80. liberal by mouth fluid intake Abx, wound, care # Hypotension Hx of Htn Cosyntropin stimulation test showed no evidence of primary adrenal insufficiency no indication for stress dose steroids Cont Midodrine 5 mg po q8h # Severe sepsis 2/2 R ankle wound infection Hx of DM2, PVD, R charcot foot w/ chronic wound, on wound vac at home S/p R BKA on 04/12 Per other services # Hypotonic, hypervolemic, chronic, symptomatic, moderate-degree hyponatremia 2/2 high ADH state from pain/CHF/hypotension/etoh withdrawal + renal dysfxn + low solute intake Resolved Serum Na 120 on adm, now back to normal BNP sig elevated. Urine chem showed secondary hyperaldo. Monitor # DM2 Mngt per primary team # Anemia Iron panel showed iron deficiency but with hyperferritinemia Avoid IV iron Cont po iron bid PURNIMA not indicated Physician Review: Patient Assessed, Agree with Above Assessment and Plan
[2023-04-13] MEDS: INSULIN GLARGINE 100 UNIT/ML SQ SCH (21:06)
[2023-04-14] MEDS: CEFAZOLIN SODIUM 2 GM in NA CHLORIDE 0.9% 100 ML IVPB SCH ×3 (05:02→20:06)
[2023-04-14] MEDS: HYDROCODONE/APAP 5/325 MG TAB PO PRN ×3 (05:11→20:59)
[2023-04-14 05:18] LABS: Absolute Lymphocytes (CBC) 2.2 K/uL (0.7-4.9); Hematocrit 23.1 % (39.6-49.0); Lymphocytes % 31.2 % (15.3-44.8); MPV 6.6 fL (7.6-11.3); RBC Red Blood Cell Count 2.57 M/uL (4.33-5.43)
[2023-04-14 05:29] LABS: Potassium 3.5 mEq/L (3.5-5.1)
[2023-04-14] MEDS: INSULIN -REGULAR HUMAN 50 UNIT/0.5 ML ML SQ SCH ×4 (07:30→20:07)
[2023-04-14] MEDS ORDERED: POTASSIUM 25 MEQ EFFERV TAB PO ONE (08:00)
[2023-04-14] MEDS: PANTOPRAZOLE 40MG TABLET PO SCH ×2 (08:38→16:15)
[2023-04-14] MEDS: NICOTINE 21 MG/PAT TD SCH (08:38)
[2023-04-14] MEDS: MIDODRINE HCL 5 MG TABLET PO SCH ×3 (08:39→23:10)
[2023-04-14] MEDS: FERROUS SULFATE 325 MG TAB PO SCH ×2 (08:39→20:05)
[2023-04-14] MEDS: chlordiazePOXIDE HCl 25 MG CAP PO SCH ×2 (08:39→20:05)
[2023-04-14] MEDS: THIAMINE HCL 100 MG TABLET PO SCH (08:39)
[2023-04-14] MEDS: FOLIC ACID 1 MG TABLET PO SCH (08:39)
[2023-04-14] MEDS: ENOXAPARIN 40 MG/0.4 ML SQ SCH (08:46)
[2023-04-14] MEDS: COLLAGENASE 30 GM OINTMENT TOP SCH (09:00)
--- NOTE | 2023-04-14 09:17 | P.PN ---
Date of Service: 04/14/23 Chief Complaint: Weakness Subjective: Patient in bed. A&Ox2. NAD. s/p right BKA 04/12. Patient denies any new or worsening complaints. No acute events reported overnight. Physical Examination Temp Pulse Resp BP Pulse Ox 96.9 F 85 20 101/70 96 04/14/23 07:42 04/14/23 07:42 04/14/23 07:42 04/14/23 07:42 04/14/23 07:42 General: Alert, In no apparent distress, Oriented x2. HEENT: Atraumatic, Normocephalic Neck: Supple, JVD not distended Respiratory: Normal air movement, nonlabored respirations on room air. Cardiovascular: Regular rate/rhythm. Gastrointestinal: Normal bowel sounds, Soft and benign Integumentary/Msk: s/p Right BKA, dressing clean dry and intact. Studies Laboratory Data - Reviewed Microbiology Data - Reviewed Imagings Data: - XR Chest 04/07: "Mild interstitial pulmonary edema. The heart is moderately enlarged. No displaced fractures." - XR Right Ankle 04/07: "There is significant destructive changes seen involving the ankle and foot. Very ostial thickening is present. Moderate flatfoot deformity. Small calcaneal spurs. This is compatible with a Charcot joint" Medications List - Reviewed Assessment and Plan Problem List Diabetes Mellitus type II Hypertension Obesity Anemia PVD Sepsis, resolved MSSA Bacteremia Charcot foot Osteomyelitis MSSA Bacteremia Charcot foot with chronic nonhealing wound RLE Osteomyelitis Right Foot - Blood cultures 04/07: Staphylococcus aureus - Urine culture 04/07: Mixed ck ; colony count <10,000 CFU/mL - Previously on Cefepime and Vancomycin (04/07-04/11). - Currently on Cefazolin 04/11 - Osteomyelitis: s/p right BKA 04/12. tolerated procedure well. Leukocytosis resolved Afebrile Recommendations - MSSA Bacteremia: Currently on Cefazolin IV. Continue antibiotic therapy for a total of 14 days. Negative blood culture obtained 04/09. - Continue Cefazolin IV while inpatient rehab - Blood cultures negative since 04/09. - Source control with right below-knee amputation by Dr. Hays. - Strict blood glucose control - s/p right BKA. Continue care per surgery team Case discussed with Socorro Goodwin
--- NOTE | 2023-04-14 13:06 | CON ---
Date of Consultation: 04/11/2023 Brief History Of Present Illness: The patient is a 52-year-old man with past medical history signifi cant for diabetes, hypertension, obesity, chronic pain, Charcot foot, anemia, peripheral vascular dis ease, chronic right lower extremity, lateral foot chronic wound/chronic osteomyelitis, known to me fr om previous surgical intervention. I have been taking care of his wounds for approximately 3 to 4 ye ars with good outcomes generally; however, I was recently out of town and he experienced a fall, at w hich point he puncture through his previous wound, which was healing and improving using standard wou nd care. He appeared to disarticulate his ankle at that point and he had worsening confusion, lethar gy and instability with frequent falls and as such, his brought him to the hospital via EMS with the above stated issues. He was treated and found to have evidence of possible sepsis, possibly and most likely related to his right lower extremity chronic wound, now with compound fracture and disar ticulation of the wound area. He had been treated with medical management, nonoperative management w ith some improvement, but continued to have evidence of ongoing acute on chronic infection on the rig ht foot. Past Medical History: Diabetes, hypertension, obesity, chronic pain, Charcot foot, anemia, periphera l vascular disease. Past Surgical History: Includes amputation of his right toe, multiple debridements of his right lowe r extremity, femoral stent placement. Allergies: NO KNOWN DRUG ALLERGIES. Home Medications: Included Eliquis. Social History: He does admit to alcohol use which is sometimes heavy times. Denies recreational dr ug use. Review of Systems: Ten-point review of systems other than HPI, the patient has low-grade confusion, but does answer my q uestions appropriately after a significant delay in time and requires frequent redirection. His was present during my examination. Physical Examination: Vital Signs: During the time of my examination were blood pressure 128/83, pulse 85, respiratory rat e 22, temperature 97.2, SpO2 95% on room air. General: At the time of my examination; he is awake and alert, but has some low-grade disorientation . He appears altered from my previous encounters with him and based on his baseline, this is an alte ration and decreased mental status compared to previous. HEENT: He is normocephalic. Sclerae anicteric. Mucous membranes moist. Oropharynx clear. Neck: Supple without JVD. Chest: Expansion and excursion. Cardiovascular: Regular rate and rhythm. Pulmonary: Clear to auscultation bilaterally. Abdomen: Soft. Extremities: Focused examination of the lower extremity; he has a worsening right lateral ankle woun d with exposed fibula with fracture. He has disarticulation of the foot with easy rotation beyond 18 0 degrees of the foot during attempted examination. When I palpated and probed the area, there was t racking and tunneling from where it appears the bone punctured the site. There was some granulation tissue in the area. There was ongoing drainage with some yellowish hue to it consistent with an ongo ing infection. He had the Charcot foot appearance, which is pretty consistent with his previous exam s. His left lower extremity did not have any significant ulcerations based on the baseline. Laboratory Data: He had a laboratory exam, which revealed a white blood cell count of 6.3, hemoglobi n 7.7, hematocrit 22.8, platelet count was 258. His sodium 140, potassium 3.6, chloride 111, carbon dioxide is 25, BUN 22, creatinine 1.5, glucose was 219, phosphorus 3.2, magnesium 2.0, AST 14, ALT wa s less than 10, alkaline phosphatase 114. He had been placed on antibiotics per the primary team wit h appropriate coverage. He had an x-ray of the foot on the right side, which showed significant dest ructive changes involving the ankle and foot. Very ostial thickening is present. Moderate flatfoot deformity, small calcaneal spurs compatible with Charcot joint. Assessment And Plan: This is a 52-year-old male, who has a significant infection, acute on chronic o steomyelitic changes with possible source of sepsis, and additionally he has a disarticulation of the foot and an obvious compound puncture through the skin with exposed bone at this point of the fibula . 1.Continue medical management. 2.IV fluid hydration. 3.Antibiotic coverage. 4.I have explained the risks, benefits, and alternatives of right [id number] amputation with the patient and his including, but not limited to bleeding, infection, damage to surrounding tissue s, need for further operation and procedures, blood clots, stroke, heart attacks, need for further op erations and possible revisions to the stump, phantom limb pain, nerve issues, chronic pain. The pat shun and his had all questions answered appropriately and agreed to proceed as indicated. JOE/RUTH ANN Voice ID: [id number] Report ID: [id number]
--- NOTE | 2023-04-14 13:24 | EKG ---
Test Date: 2023-04-07 Test Time: 12:00:17 Retail Sales Specialist: ANA MEASUREMENT RESULTS: Intervals: Rate: 133 [place]: QRSD: 120 QT: 326 QTc: 485 [place]: P: FL: QRS: -4 T: 32 INTERPRETIVE STATEMENTS: Sinus tachycardia Low voltage QRS Right bundle branch block Cannot rule out Anterior infarct, age undetermined T wave abnormality, consider lateral ischemia Abnormal ECG Compared to ECG 03/28/2023 19:22:36 Ventricular premature complex(es) now present Wide-QRS tachycardia now present Low QRS voltage now present Myocardial infarct finding now present T-wave abnormality now present Possible ischemia now present Electronically Signed On 04-14-23 13:20:50 CDT by Taras Jama
--- NOTE | 2023-04-14 15:20 | P.PN ---
Subjective Date of Service: 04/14/23 Chief Complaint: Weakness Patient has no new complaint today. No issues overnight. Physical Examination - Vital Signs Temperature: 97.5 F Blood Pressure: 122/91 Pulse: 82 Respirations: 18 Pulse Ox (%): 96 Assessment And Plan - Plan Physical Exam: GEN: Alert, Oriented x3, NAD HEENT: Normal conjunctiva, sclera anicteric CV: Regular rate and rhythm, BLE edema; R>L Pulm: Clear to auscultation ABD: Soft, nontender, nondistended Integumentary: right lower leg/foot chronic wounds with dressing Neuro: Normal speech, normal affect vitals reviewed Problem List: Severe Sepsis, secondary to ulcer of right charcot foot Staph Aureus bacteremia Hyponatremia Pulmonary edema History of Charcot's foot with right foot wound Microcytic anemia NIDDM2 with hyperglycemia Hypertension History of PVD Right lower extremity pressure ulcer Alcohol use disorder Nicotine Abuse Severe Sepsis, secondary to right charcot foot Staph Aureus bacteremia History of Charcot's foot Xray Ankle (04/07): significant destructive changes seen involving the ankle and foot. ostial thickening is present. Moderate flatfoot deformity. Small calcaneal spurs. This is compatible with a Charcot joint. Blood culture(04/07): Staph Aureus Repeat Blood culture(04/09): Pending echo to r/o endocarditis is pending Urine culture: Mixed Chela ID is following. Antibiotics transitioned to ancef 04/11 afebrile without leukocytosis Status post below-knee amputation. Wound care per surgery. PRN pain medication PT. Patient is being evaluated for inpatient rehab. SHERI Hyponatremia Nephrology consulted Renal function is stable Continue to monitor. Microcytic anemia, severe iron deficiency Monitor H&H, tranfuse if hgb < 7 hgb 7.3 -> 7.6 no bleed pulm edema CXR (04/07): Mild CHF pattern NIDDM2 with hyperglycemia BS monitoring with SSI Hypotension borderline low BP. monitor closely History of PVD supportive care Alcohol use CIWA precautions. Taper down Librium. Nicotine Abuse smoking cessation advised. Placed on nicoderm patch 04/09 Code: Full DVT prophylaxis: Lovenox
[2023-04-14] MEDS: AMINO ACIDS/PROTEIN HYDROLYS 30 ML LIQUID.PKT PO SCH (20:05)
[2023-04-14] MEDS: INSULIN GLARGINE 100 UNIT/ML SQ SCH (20:06)
--- NOTE | 2023-04-15 01:15 | PN ---
Date of Progress Note: 04/14/2023 Chief Complaint: Acute kidney injury. Renal function has improved over last several days. The marisa ent presented to the hospital because of generalized weakness. He was found to have hyponatremia, ac [place] kidney injury. Review of Systems: Denies chest pain, palpitation. Physical Examination: Lungs: Clear to auscultation bilaterally. Heart: S1, S2. Abdomen: Soft. Extremities: Right BKA, dressing in place. Impression And Plan: 1.Acute kidney injury secondary to acute tubular necrosis, sepsis, hypotension. Serum creatinine le reshma was 1.2 on admission, increased to 1.5, subsequently improved and again increased to 1.5. Baseli ne creatinine level 0.62 to 0.9 as of January 18, 2023. The patient has acute kidney injury. Renal funct ion is fluctuating and his urine chemistry showed changes significant for acute tubular necrosis. Th e patient has mild proteinuria, protein excretion 0.7 g for 24 hours. Continue midodrine for blood p ressure support, IV fluids as needed. The patient received IV fluids to control hyponatremia. Sodiu m level has improved gradually. Continue to advance nutrition and monitor phosphorus level, advance treatment for hypophosphatemia. 2.Hyponatremia, hypotonic hypervolemic, chronic and asymptomatic of moderate degree secondary to hig h ADH state from hypotension, alcohol withdrawal, renal dysfunction, low solute intake, as well as co ngestive heart failure. Serum sodium level was 120 on admission and currently is back in normal rang e. 3.Diabetes mellitus per primary team. Avoid metformin in patient who has congestive heart failure and acute kidney injury. 4.Anemia. Monitor hemoglobin level. DIXON/BRONSONL Voice ID: [id number] Report ID: [id number]
[2023-04-15] MEDS: CEFAZOLIN SODIUM 2 GM in NA CHLORIDE 0.9% 100 ML IVPB SCH ×3 (03:15→20:05)
[2023-04-15] MEDS ORDERED: CEFAZOLIN SODIUM 2 GM/VIAL ONE (03:20)
[2023-04-15] MEDS: INSULIN -REGULAR HUMAN 50 UNIT/0.5 ML ML SQ SCH ×4 (07:30→20:03)
[2023-04-15] MEDS: HYDROCODONE/APAP 5/325 MG TAB PO PRN (08:14)
[2023-04-15] MEDS: ENOXAPARIN 40 MG/0.4 ML SQ SCH (08:14)
[2023-04-15] MEDS: FOLIC ACID 1 MG TABLET PO SCH (08:14)
[2023-04-15] MEDS: MIDODRINE HCL 5 MG TABLET PO SCH ×3 (08:14→23:55)
[2023-04-15] MEDS: PANTOPRAZOLE 40MG TABLET PO SCH ×2 (08:15→16:19)
[2023-04-15] MEDS: NICOTINE 21 MG/PAT TD SCH (08:15)
[2023-04-15] MEDS: AMINO ACIDS/PROTEIN HYDROLYS 30 ML LIQUID.PKT PO SCH ×2 (08:15→20:06)
[2023-04-15] MEDS: FERROUS SULFATE 325 MG TAB PO SCH ×2 (08:15→20:05)
[2023-04-15] MEDS: chlordiazePOXIDE HCl 25 MG CAP PO SCH (08:15)
[2023-04-15] MEDS: THIAMINE HCL 100 MG TABLET PO SCH (08:15)
--- NOTE | 2023-04-15 08:55 | P.PN ---
Date of Service: 04/15/23 Chief Complaint: Weakness Subjective: Improving. No acute events reported overnight. + right leg pain controlled with PRN pain medication. Physical Examination Temp Pulse Resp BP Pulse Ox 97.6 F 83 18 119/67 90 L 04/15/23 08:00 04/15/23 08:00 04/15/23 08:14 04/15/23 08:00 04/15/23 08:14 General: Alert, In no apparent distress, Oriented x2. HEENT: Atraumatic, Normocephalic Neck: Supple, JVD not distended Respiratory: Normal air movement, nonlabored respirations on room air. Cardiovascular: Regular rate/rhythm. Gastrointestinal: Normal bowel sounds, Soft and benign Integumentary/Msk: s/p Right BKA, dressing clean dry and intact. Studies Laboratory Data - Reviewed Microbiology Data - Reviewed Imagings Data: - XR Chest 04/07: "Mild interstitial pulmonary edema. The heart is moderately enlarged. No displaced fractures." - XR Right Ankle 04/07: "There is significant destructive changes seen involving the ankle and foot. Very ostial thickening is present. Moderate flatfoot deformity. Small calcaneal spurs. This is compatible with a Charcot joint" Medications List - Reviewed Assessment and Plan Problem List Diabetes Mellitus type II Hypertension Obesity Anemia PVD Sepsis, resolved MSSA Bacteremia Charcot foot Osteomyelitis MSSA Bacteremia Charcot foot with chronic nonhealing wound RLE Osteomyelitis Right Foot - Blood cultures 04/07: Staphylococcus aureus - Repeat blood cultures 04/09: No growth to date - Urine culture 04/07: Mixed ck ; colony count <10,000 CFU/mL - Previously on Cefepime and Vancomycin (04/07-04/11). - Currently on Cefazolin 04/11 - s/p right BKA on 04/[address] Hays. Leukocytosis resolved Afebrile Recommendations - MSSA Bacteremia: Currently on Cefazolin IV. Continue antibiotic therapy for a total of 14 days from negative culture 04/09. Currently on day 7 of 14. - Continue Cefazolin IV while inpatient - Source control achieved with right below-knee amputation - Strict blood glucose control - s/p right BKA; continue care per surgery team Pending inpatient rehab approval Case discussed with Socorro Goodwin
[2023-04-15] MEDS ORDERED: POTASSIUM 25 MEQ EFFERV TAB PO ONE (11:44)
--- NOTE | 2023-04-15 15:06 | P.PN ---
Subjective Date of Service: 04/15/23 Chief Complaint: Weakness Subjective: No new changes Physical Examination - Vital Signs Temperature: 97.2 F Blood Pressure: 117/65 Pulse: 89 Respirations: 18 Pulse Ox (%): 100 - Physical Exam General: In no apparent distress HEENT: Atraumatic, Normocephalic Neck: Supple, JVD not distended Respiratory: Other (symmetric chest expansion) Cardiovascular: No rubs, No murmurs Gastrointestinal: Soft and benign, No masses Musculoskeletal: No clubbing Integumentary: No warmth Neurological: Normal speech, Normal tone Urinary: Other (no bladder distention) External genitalia: Deferred Rectal: Deferred Assessment And Plan - Plan # SHERI 2/2 ATN/sepsis/hypotension SCr 1.2 on admission, increased to 1.5, improved to 1.3 Baseline serum creatinine 0.6-0.9 as of 01/18/2023 Urinalysis with proteinuria, hematuria, pyuria Urine chemistry showing secondary hyperaldosteronism Has mild paranoia 0.7 g on randomly PCR BNP significant elevated. Dc Na-containing IVF. Cont midodrine. MAP goal > 70-80. [place] by mouth fluid intake > 2L/d Abx, wound, care # Hypotension Hx of Htn Cosyntropin stimulation test showed no evidence of primary adrenal insufficiency no indication for stress dose steroids Cont Midodrine 5 mg po q8h # Severe sepsis 2/2 R ankle wound infection Hx of DM2, PVD, R charcot foot w/ chronic wound, on wound vac at home S/p R BKA on 04/12 Per other services # Hypotonic, hypervolemic, chronic, symptomatic, moderate-degree hyponatremia 2/2 high ADH state from pain/CHF/hypotension/etoh withdrawal + renal dysfxn + low solute intake Resolved Serum Na 120 on adm, now back to normal BNP sig elevated. Urine chem showed secondary hyperaldo. [place] po fluid intake Monitor # DM2 Mngt per primary team # Anemia Iron panel showed iron deficiency but with hyperferritinemia Avoid IV iron Cont po iron bid PURNIMA not indicated Physician Review: Patient Assessed, Agree with Above Assessment and Plan
--- NOTE | 2023-04-15 16:32 | P.PN ---
Subjective Date of Service: 04/15/23 Chief Complaint: Weakness Patient has no new complaint. He is tolerating physical therapy. Physical Examination - Vital Signs Temperature: 97.2 F Blood Pressure: 117/65 Pulse: 89 Respirations: 18 Pulse Ox (%): 100 - Studies Laboratory Data (last 24 hrs) WBC 14.80 thou/uL (4.3-10.9) H 04/07/23 12:15 Hgb 9.2 g/dL (13.6-17.9) L 04/07/23 12:15 Hct 28.1 % (39.6-49.0) L 04/07/23 12:15 Plt Count 256 thou/uL (152-406) 04/07/23 12:15 PT 19.3 SECONDS (9.5-12.5) H 04/07/23 12:15 INR 1.75 04/07/23 12:15 APTT 32.8 SECONDS (24.3-36.9) 04/07/23 12:15 Sodium 120 mEq/L (136-145) L 04/07/23 12:15 Potassium 4.0 mEq/L (3.5-5.1) 04/07/23 12:15 BUN 22 mg/dL (7-18) H 04/07/23 12:15 Creatinine 1.21 mg/dL (0.70-1.30) 04/07/23 12:15 Glucose 272 mg/dL (74-106) H 04/07/23 12:15 Total Bilirubin 0.5 mg/dL (0.2-1.0) 04/07/23 12:15 AST 15 U/L (15-37) 04/07/23 12:15 ALT < 10 U/L (16-61) L 04/07/23 12:15 Alkaline Phosphatase 127 U/L (45-117) H 04/07/23 12:15 Assessment And Plan - Plan Physical Exam: GEN: Alert, Oriented x3, NAD HEENT: Normal conjunctiva, sclera anicteric CV: Regular rate and rhythm, BLE edema; R>L Pulm: Clear to auscultation ABD: Soft, nontender, nondistended Integumentary: right lower leg/foot chronic wounds with dressing Neuro: Normal speech, normal affect vitals reviewed Problem List: Severe Sepsis, secondary to ulcer of right charcot foot Staph Aureus bacteremia Hyponatremia Pulmonary edema History of Charcot's foot with right foot wound Microcytic anemia NIDDM2 with hyperglycemia Hypertension History of PVD Right lower extremity pressure ulcer Alcohol use disorder Nicotine Abuse Severe Sepsis, secondary to right charcot foot Staph Aureus bacteremia History of Charcot's foot Xray Ankle (04/07): significant destructive changes seen involving the ankle and foot. ostial thickening is present. Moderate flatfoot deformity. Small calcaneal spurs. This is compatible with a Charcot joint. Blood culture(04/07): Staph Aureus Repeat Blood culture(04/09): Pending echo to r/o endocarditis is pending Urine culture: Mixed Chela ID is following. Antibiotics transitioned to ancef 04/11 afebrile without leukocytosis Status post below-knee amputation. Wound care per surgery. PRN pain medication PT. Patient plan for inpatient rehab placement. SHERI Hyponatremia Nephrology consulted Renal function is stable Continue to monitor. Microcytic anemia, severe iron deficiency Monitor H&H, tranfuse if hgb < 7 hgb 7.3 -> 7.6 no bleed pulm edema CXR (04/07): Mild CHF pattern NIDDM2 with hyperglycemia BS monitoring with SSI Hypotension borderline low BP. monitor closely History of PVD supportive care Alcohol use CIWA precautions. Tapering down Librium. Nicotine Abuse smoking cessation advised. Placed on nicoderm patch 04/09 Code: Full DVT prophylaxis: Lovenox
[2023-04-15] MEDS: INSULIN GLARGINE 100 UNIT/ML SQ SCH (21:28)
[2023-04-16 03:06] VITALS: O2SAT 94
[2023-04-16] MEDS: CEFAZOLIN SODIUM 2 GM in NA CHLORIDE 0.9% 100 ML IVPB SCH (04:28)
[2023-04-16 06:18] LABS: Potassium 3.7 mEq/L (3.5-5.1)
[2023-04-16] MEDS: ENOXAPARIN 40 MG/0.4 ML SQ SCH (08:13)
[2023-04-16] MEDS: FERROUS SULFATE 325 MG TAB PO SCH (08:14)
[2023-04-16] MEDS: FOLIC ACID 1 MG TABLET PO SCH (08:14)
[2023-04-16] MEDS: THIAMINE HCL 100 MG TABLET PO SCH (08:14)
[2023-04-16] MEDS: PANTOPRAZOLE 40MG TABLET PO SCH (08:14)
[2023-04-16] MEDS: NICOTINE 21 MG/PAT TD SCH (08:14)
[2023-04-16] MEDS: MIDODRINE HCL 5 MG TABLET PO SCH (08:15)
[2023-04-16] MEDS: INSULIN -REGULAR HUMAN 50 UNIT/0.5 ML ML SQ SCH (08:15)
[2023-04-16] MEDS: AMINO ACIDS/PROTEIN HYDROLYS 30 ML LIQUID.PKT PO SCH (08:17)
[2023-04-16 08:21] VITALS: BP 117/65; TEMP 97.2
[2023-04-16] MEDS ORDERED: chlordiazePOXIDE HCl 25 MG CAP PO SCH (09:00)
[2023-04-16] MEDS ORDERED: POTASSIUM CL SA 10 MEQ TAB PO ONE (09:00)
--- NOTE | 2023-04-16 10:02 | P.DS ---
Admission Date: 04/07/23 Discharge Date: 04/16/23 Disposition: TRANSFER TO INPATIENT REHAB Discharge Condition: FAIR Reason for Admission: Weakness Brief History of Present Illness: 52-year-old male with a past medical history significant for DM2, hypertension, obesity, chronic pain syndrome, Charcot's foot, anemia, PVD chronic right lower foot wound with a Vac-Pac dressing presents to the emergency room with generalized weakness. He was recently seen and followed by Surg for Chronic RLE foot wound. He reported RLE swelling that is chronic. He reports taking Bactrim for RLE wound. He denied fever, chills, NVD cough, chest pain, shortness of breath. He reports nonweightbearing, uses a electric wheelchair for transfers. He reported alcohol use, 3-4 drinks per day, that includes rum and beer. Lab evauation Procalcitonin elevated 1.61, albumin 2.1, lactic 4.0, blood glucose 272, estimated GFR 72 sodium 120 CBC WBC 14.80, hemoglobin 9.2, hematocrit 28.1, early left shift 80 patient recieved IV vancomycin, Zosyn, IVF in ED Ankle x-ray INDINGS: There is significant destructive changes seen involving the ankle and foot. Very ostial thickening is present. Moderate flatfoot deformity. Small calcaneal spurs. This is compatible with a Charcot joint. CXR Mild interstitial pulmonary edema. The heart is moderately enlarged. No displaced fractures. IMPRESSION: Mild CHF. Patient was hospitalized for further management. Hospital Course: Diagnosis Severe Sepsis, secondary to ulcer of right charcot foot Staph Aureus bacteremia Hyponatremia Pulmonary edema History of Charcot's foot with right foot wound Microcytic anemia NIDDM2 with hyperglycemia Hypertension History of PVD Right lower extremity pressure ulcer Alcohol use disorder Nicotine Abuse Patient admitted to the medical floor and the following medical problems addressed: Severe Sepsis, secondary to right charcot foot Staph Aureus bacteremia History of Charcot's foot Xray Ankle (04/07): significant destructive changes seen involving the ankle and foot. ostial thickening is present. Moderate flatfoot deformity. Small calcaneal spurs. This is compatible with a Charcot joint. Blood culture(04/07): Staph Aureus Repeat Blood culture(04/09): Pending echo to r/o endocarditis is pending Urine culture: Mixed Chela ID saw and assisted with management. Patient was initially on broad-spectrum antibiotics and later transferred transitioned to [place] 04/11 He has been afebrile without leukocytosis Status post below-knee amputation. Surgery is following for wound care. PRN pain medication PT. Patient accepted for inpatient rehab placement. SHERI Hyponatremia Nephrology consulted Renal function has been stable. Continue to monitor. Microcytic anemia, severe iron deficiency no bleed NIDDM2 with hyperglycemia BS monitoring with SSI Hypotension borderline low BP. Patient placed on midodrine per nephrology History of PVD supportive care Alcohol use CIWA precautions. Patient placed on Librium for alcohol withdrawal prophylaxis. Librium was tapered off during the hospital stay. Nicotine Abuse smoking cessation advised. Placed on nicoderm patch 04/09 Vital Signs/Physical Exam: Temp Pulse Resp BP Pulse Ox 97.2 F 89 18 117/65 100 04/16/23 08:20 04/16/23 08:20 04/16/23 08:20 04/16/23 08:20 04/16/23 08:20 General: Alert, In no apparent distress HEENT: Mucous membr. moist/pink Neck: JVD not distended Respiratory: Clear to auscultation bilaterally, Normal air movement Cardiovascular: No edema, Regular rate/rhythm, Normal S1 S2 Gastrointestinal: Soft and benign, Non-distended, No tenderness Musculoskeletal: Other (Right BKA) Neurological: Other (No focal motor deficit) Laboratory Data at Discharge: WBC 7.00 thou/uL (4.3-10.9) 04/14/23 04:45 Hgb 7.4 g/dL (13.6-17.9) L 04/14/23 04:45 Hct 23.1 % (39.6-49.0) L 04/14/23 04:45 Plt Count 309 thou/uL (152-406) 04/14/23 04:45 PT 19.3 SECONDS (9.5-12.5) H 04/07/23 12:15 INR 1.75 04/07/23 12:15 APTT 32.8 SECONDS (24.3-36.9) 04/07/23 12:15 Sodium 139 mEq/L (136-145) 04/16/23 05:34 Potassium 3.7 mEq/L (3.5-5.1) 04/16/23 05:34 BUN 15 mg/dL (7-18) 04/16/23 05:34 Creatinine 1.12 mg/dL (0.70-1.30) 04/16/23 05:34 Glucose 187 mg/dL (74-106) H 04/16/23 05:34 Phosphorus 2.9 mg/dL (2.5-4.9) 04/13/23 04:33 Magnesium 2.1 mg/dL (1.6-2.4) 04/13/23 04:33 Total Bilirubin 0.2 mg/dL (0.2-1.0) 04/13/23 04:33 AST 10 U/L (15-37) L 04/13/23 04:33 ALT < 10 U/L (16-61) L 04/13/23 04:33 Alkaline Phosphatase 108 U/L (45-117) 04/13/23 04:33 Home Medications: Apixaban [Eliquis] 5 mg PO BID #60 tablet 01/05/22 Amino Acids/Protein Hydrolys [Prosource No Carb Liquid Pkt] 30 ml PO BID packet 04/16/23 Cefazolin Sodium in 0.9 % NaCl [Cefazolin 2 G/100 ml-0.9% NaCl] 2 gm IV Q8H 7 Days 04/16/23 Ferrous Sulfate [Ferrous Sulfate*] 325 mg PO BID tab 04/16/23 Insulin -Regular Human [Novolin -R*] See Protocol SQ ACHS ml 04/16/23 Insulin Glargine,Hum.rec.anlog [Semglee] 10 unit SQ BEDTIME ml 04/16/23 Midodrine HCl [Proamatine*] 5 mg PO Q8H tab 04/16/23 Nicotine [Nicoderm*] 21 mg TD DAILY 04/16/23 Pantoprazole [Protonix Tab*] 40 mg PO BIDAC tab 04/16/23 Thiamine HCl [Vitamin B-1*] 100 mg PO DAILY 04/16/23 New Medications: Cefazolin Sodium in 0.9 % NaCl [Cefazolin 2 G/100 ml-0.9% NaCl] 2 gm IV Q8H 7 Days Diet: ADA Activity: Fall precautions Followup: Franklyn Hays MD [ACTIVE - CAN ADMIT] - 1 Week Maren Almonte FNP [Primary Care Provider] - 1 Week Time spent managing pt's care (in minutes): 39
== END 2023-04-16 10:15 | DRG 853 ==
LOC: ER 11:47 → 2ND 14:09 → 3RD-ICU 15:58 → 2ND 04-14 13:48
PROVIDERS: ADMIT Hospitalist; ATTEND Internal Medicine
PROC: 0Y6H0Z1 Detachment at Right Lower Leg, High, Open Approach (ICD-10-PCS; principal; 2023-04-12 12:00)
DX: A41.01 Sepsis due to Methicillin susceptible Staphylococcus aureus (principal); G93.41 Metabolic encephalopathy; N17.0 Acute kidney failure with tubular necrosis; E87.1 Hypo-osmolality and hyponatremia; F10.139 Alcohol abuse with withdrawal, unspecified; N39.0 Urinary tract infection, site not specified; M86.8X8 Other osteomyelitis, other site; R65.20 Severe sepsis without septic shock; E11.69 Type 2 diabetes mellitus with other specified complication; E11.51 Type 2 diabetes mellitus with diabetic peripheral angiopathy without gangrene; E11.610 Type 2 diabetes mellitus with diabetic neuropathic arthropathy; E11.65 Type 2 diabetes mellitus with hyperglycemia; E11.621 Type 2 diabetes mellitus with foot ulcer; I50.9 Heart failure, unspecified; I11.0 Hypertensive heart disease with heart failure; G89.4 Chronic pain syndrome; D50.9 Iron deficiency anemia, unspecified; E66.9 Obesity, unspecified; E26.1 Secondary hyperaldosteronism; L97.509 Non-pressure chronic ulcer of other part of unspecified foot with unspecified severity; Z99.3 Dependence on wheelchair; Z79.01 Long term (current) use of anticoagulants; Z79.4 Long term (current) use of insulin; Z79.899 Other long term (current) drug therapy; Z89.421 Acquired absence of other right toe(s)
CPT/HCPCS: 36415; 71045; 74176; 76377; 76770; 80048; 80053; 80202; 81001; 82024; 82140; 82533; 82570; 82607; 82627; 82728; 82947; 83540; 83605; 83735; 83880; 83930; 83935; 84100; 84132; 84145; 84156; 84300; 84466; 85014; 85018; 85025; 85027; 85610; 85730; 86850; 86900; 86901; 87040; 87077; 87086; 87088; 87186; 87205; 88305; 88307; 88311; 93005; 96361; 96365; 96375; 97110; 97161; 97165; 97530; 97542; 99285; J0692; J0834; J1100; J1170; J1200; J1650; J1815; J1940; J2001; J2250; J2371; J2405; J2704; J3010; J3475; J3480; J3590; J7030; J7040; J8499

== ENCOUNTER 2023-04-16 02:45 | Inpatient (IN) | payer BC ==
--- OUTSIDE RECORDS SUMMARY | 2023-04-16 11:29 | XMS REPORT | Continuity of Care Document ---
:1970 Author Organization [facility] t Address [address] [place] [address] [address] [place] [address] Care Team Providers Name Role Phone Arnaud Mckeon MD Primary Care Physician GERARDO MCCALL Attending Clinician Unavailable MARY SWANN Attending Clinician Unavailable ABBEY LARA Attending Clinician Unavailable [facility] Attending Clinician Unavailable LAB90 Attending Clinician Unavailable SABRINA DOWNS Attending Clinician Unavailable PROVIDER, VIDEOVISITNOAlice Attending Clinician Unavailable Corrie Jones MD Attending Clinician [phone] CORRIE JONES Attending Clinician Unavailable MD LAMBERT Attending Clinician Unavailable MAGALIS ERNANDEZ Attending Clinician Unavailable TEETEE HUBBARD Attending Clinician Unavailable LAB39 Attending Clinician Unavailable [id number] Attending Clinician Unavailable Mary Mcdonough Attending Clinician DOLLY TIERNEY Attending Clinician Unavailable EMILY WHITEHEAD Attending Clinician Unavailable MARITZA LEWIS Attending Clinician Unavailable [id number] Attending Clinician Unavailable ROSALBA FERMIN Attending Clinician Unavailable Lars Saavedra DO Attending Clinician KAYE KELLER Attending Clinician Unavailable Armin Mchugh MD Attending Clinician ARMIN MCHUGH Attending Clinician Unavailable Ogunlana DPM, Kaye A Attending Clinician [phone] [facility] Attending Clinician Unavailable Grace December Attending Clinician Nabila Collins MD Attending Clinician Doctor Unassigned, [place] Attending Clinician Unavailable FELICIA MORENO Admitting Clinician Unavailable Payers Payer Name Policy Type Policy Number Effective Date Expiration Date S ource BCBS 2 [id number] 2020 00:00:00 BCBS PPO POS EPO [id number] 2017 00:00:00 CHOICE Problems Condition Condition Condition [...] to nce [facility] secondary 00:[facility]: [facility] nancy DM DM 00 Center Anemia Anemia Disease Active [facility] 00 [place] HTN HTN Disease Active [facility] (hypertens (hypertens 1- Bebe kes ion) ion) 00:00: Medical 00 [place] HLD HLD Disease Active [facility] (hyperlipi (hyperlipi 1- Bebe kes demia) demia) 00:00: Medical 00 [place] MSSA MSSA Disease Active [facility] bacteremia bacteremia 1- Bebe kes 00:00: Medical 00 [place] Diabetes Diabetes Disease Recurre 2020-[address] [facility] [address] nce [facility]- [facility] 00[facility] 00 Center Diabetic Diabetic Disease Recurre 2020-[address] Charcot Charcot nce 2- [facility] foot foot 00:00: Medical 00 [place] Spondylodi Spondylodi Disease Active 2020-[address] scitis scitis 2 [facility] Epidural Epidural Disease Active 2020-[facility] abscess abscess [facility] Center 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 5-27 Seyb old diabetes diabetes 00:00: - mellitus mellitus 00 [employer] a with with l hyperglyce hyperglyce will [...] foot foot 00:00: [place] deformity deformity 00 [facility] Diabetic Diabetic Disease Active Unive rs [...] foot, 3-06 ity of right right 00:00: [address] Essential Essential Disease Active 2014-09 Uni vers hypertensi hypertensi 0-06 it y of on on 00:00: [address] Erectile Erectile Disease Active 2014-09 Unive rs dysfunctio dysfunctio 0-06 it y of n, n, 00:00: [place] unspecifie unspecifie 00 Me dical d erectile d erectile Br anch dysfunctio dysfunctio n type n type Allergies, Adverse Reactions, Alerts Allergy Allergy Status Severity Reaction(s) Onset Inactive Treating Comm ents Source Name Type Date Date Clinician NO KNOWN Allergy Active [facility]ERGIE [facility] NO KNOWN Drug Active Univers ALLERGIE Class ity of [facility] Family History Family Member Diagnosis Comments Start Date Stop Date Source Natural brother [facility] Natural father Cancer [facility] Social History Social Habit Start Date Stop Date Quantity Comments Source History of tobacco Cigarette Smoker [facility] Exposure to Not sure University of SARS-CoV-2 (event) [facility] Tobacco use and 2021-11-03 2021-11-03 Smokeless Sandra Se leoneold - exposure 00:00:00 00:00:00 tobacco non-user External Cigarettes smoked 2021-09-18 2021-09-18 GEORGE Henderson current (pack per 00:00:00 00:00:00 [facility] day) - Reported Cigarette 2021-09-18 2021-09-18 GEORGE Henderson pack-years 00:00:00 00:00:00 [facility] Center Alcohol intake 2021-09-18 2021-09-18 Current drinker [facility]00 of [facility] [place] (finding) Alcohol Comment 2017-06-13 2017-06-13 4-6 beers a day Univ ersity of 00:00:00 00:00:00 [facility] Sex [birth year] At [birth year] GEORGE Clemente 00:00:00 00:00:00 [facility] Smoking Status Start Date Stop Date Source Ex-smoker 2021-11-03 00:00:00 2021-11-03 00:00:00 Sandra tony - External Medications Ordered Filled Start Stop Current Ordering Indication Dosage Frequency Signature Comments Components Source Medication Medication Date Date Medication? Clinician (SIG) Name Name Ondansetron Yes [id number] 8mg Q.[id number] Take 2 Sandra (ZOFRAN) 4 3-27 [id number] tablets (8 Seybold MG oral 00:00: 3D mg total) - TABLET 00 by mouth Externa DISPERSIBLE every 8 l hours as needed for nausea Pantoprazol 2022-0 Yes [id number] 40mg Take 1 Sandra e Sodium 40 3-27 tablet (40 Se ybold MG oral 00:00: mg total) - Tablet 00 by mouth Externa Delayed daily l Response Amoxicillin 0 Yes [id number] 1{tbl} Take 1 Sandra -Pot 3-21 tablet by Seybold Clavulanate 00:00: mouth 2 - 875-125 MG 00 times Externa oral Tablet daily l Amoxicillin 2022-0 2022- No [id number] 1{tbl} Take 1 Sandra -Pot 3-21 -27 tablet by Seybold Clavulanate 00:00: 00:00 mouth 2 - 875-125 MG 00 :00 times Externa oral Tablet daily l Omeprazole 2022-0 Yes [id number] 20mg Take 1 Sandra 20 MG oral 3-10 capsule Seybol d Delayed 00:00: (20 mg - Release 00 total) by Externa Capsule mouth l daily Ondansetron 2022-0 Yes [id number] 4mg Q.[id number] Take 1 Sandra (ZOFRAN) 4 3-10 [id number] tablet (4 Seybold MG oral 00:00: 3D mg total) - TABLET 00 by mouth Externa DISPERSIBLE every 8 l hours as needed for nausea Doxycycline 2022-0 Yes [id number] 100mg Take 1 Sandra Hyclate 100 3-10 tablet Seybol d MG oral 00:00: (100 mg - Tablet 00 total) by Externa mouth 2 l times daily Omeprazole 2022-0 2022- No [id number] 20mg Take 1 Sandra 20 MG oral 3-10 03-27 capsule Seybo ld Delayed 00:00: 00:00 (20 mg - Release 00 :00 total) by Externa Capsule mouth l daily Ondansetron 2022-0 2022- No [id number] 4mg Q.[id number] Take 1 Sandra (ZOFRAN) 4 11-26 [id number] tablet (4 Seybold MG oral 00:00: 00:00 3D mg total) - TABLET 00 :00 by mouth Externa DISPERSIBLE every 8 l hours as needed for nausea Doxycycline 2022- No [id number] 100mg Take 1 Sandra Hyclate 100 11-26 tablet Seybo ld MG oral 00:00: 00:00 (100 mg - Tablet 00 :00 total) by Externa mouth 2 l times daily TRIMETHOPRI 2022- No [id number] 1{tbl} Take 1 Sandra M-SULFAMETH 11-17 tablet by Se ybold OXAZOLE 00:00: 00:00 mouth 2 - (BACTRIM 00 :00 times Externa DS) 800-160 daily for l MG oral 7 days Tablet TRIMETHOPRI 2022- No [id number] 1{tbl} Take 1 Sandra M-SULFAMETH 11-17 tablet by Se ybold OXAZOLE 00:00: 05:59 mouth 2 - (BACTRIM 00 :00 times Externa DS) 800-160 daily for l MG oral 7 days Tablet [place]-3 Yes [id number] TAKE 2 Shaun sey Fatty Acids 2-21 CAPSULES Seyb old (GNP Fish 00:00: BY MOUTH - Oil) 1000 00 TWICE Externa MG oral DAILY l Capsule [place]-3 0 Yes [id number] TAKE 2 Shaun sey Fatty Acids 2-21 CAPSULES Seyb old (GNP Fish 00:00: BY MOUTH - Oil) 1000 00 TWICE Externa MG oral DAILY l Capsule [place]-3 0 Yes [id number] TAKE 2 Shaun sey Fatty Acids 2-21 CAPSULES Seyb old (GNP Fish 00:00: BY MOUTH - Oil) 1000 00 TWICE Externa MG oral DAILY l Capsule Tirzepatide Yes [id number] 5mg Inject 0.5 Sandra (Mounjaro) 2-20 mL (5 mg Seybo ld 5 MG/0.5ML 00:00: total) - subcutaneou 00 into the Exte rna s Solution skin once l Pen-injecto a week r Apixaban Yes [id number] 2.5mg Take 1 Ke lsey (Eliquis) 2-20 tablet Seybold 2.5 MG oral 00:00: (2.5 mg - Tablet 00 total) by Externa mouth 2 l times daily Lisinopril 2022-0 Yes [id number] 20mg Take 1 K elsey 20 MG oral 2-20 tablet (20 Sey bold Tablet 00:00: mg total) - 00 by mouth Externa daily l hydroCHLORO 2022-0 Yes [id number] 25mg Take 1 Sandra thiazide 25 2-20 tablet (25 Se ybold MG oral 00:00: mg total) - Tablet 00 by mouth Externa daily l [place]-3 2022-0 Yes [id number] 2000mg Take 2 K elsey Fatty Acids 2-20 capsules Seyb old 1000 MG 00:00: (2,000 mg - oral 00 total) by Externa Capsule mouth 2 l times daily Omeprazole 2022-0 Yes [id number] 20mg Take 1 Sandra 20 MG oral 2-20 capsule Seybol d Delayed 00:00: (20 mg - Release 00 total) by Externa Capsule mouth l daily Tirzepatide 2022-0 Yes [id number] 5mg Inject 0.5 Sandra (Mounjaro) 2-20 mL (5 mg Seybo ld 5 MG/0.5ML 00:00: total) - subcutaneou 00 into the Exte rna s Solution skin once l Pen-injecto a week r Apixaban 2022-0 Yes [id number] 2.5mg Take 1 Ke lsey (Eliquis) 2-20 tablet Seybold 2.5 MG oral 00:00: (2.5 mg - Tablet 00 total) by Externa mouth 2 l times daily Lisinopril 2022-0 Yes [id number] 20mg Take 1 K elsey 20 MG oral 2-20 tablet (20 Sey bold Tablet 00:00: mg total) - 00 by mouth Externa daily l hydroCHLORO 3-0 Yes [id number] 25mg Take 1 Sandra thiazide 25 2-20 tablet (25 Se ybold MG oral 00:00: mg total) - Tablet 00 by mouth Externa daily l Omeprazole 3-0 Yes [id number] 20mg Take 1 Sandra 20 MG oral 2-20 capsule Seybol d Delayed 00:00: (20 mg - Release 00 total) by Externa Capsule mouth l daily Tirzepatide 2022-0 Yes [id number] 5mg Inject 0.5 Sandra (Mounjaro) 2-20 mL (5 mg Seybo ld 5 MG/0.5ML 00:00: total) - subcutaneou 00 into the Exte rna s Solution skin once l Pen-injecto a week r Apixaban 2022-0 Yes [id number] 2.5mg Take 1 Ke lsey (Eliquis) 2-20 tablet Seybold 2.5 MG oral 00:00: (2.5 mg - Tablet 00 total) by Externa mouth 2 l times daily Lisinopril 2022-0 Yes [id number] 20mg Take 1 K elsey 20 MG oral 2-20 tablet (20 Sey bold Tablet 00:00: mg total) - 00 by mouth Externa daily l hydroCHLORO 2022-0 Yes [id number] 25mg Take 1 Sandra thiazide 25 2-20 tablet (25 Se ybold MG oral 00:00: mg total) - Tablet 00 by mouth Externa daily l Tirzepatide 2022-0 Yes [id number] 5mg Inject 0.5 Sandra (Mounjaro) 2-20 mL (5 mg Seybo ld 5 MG/0.5ML 00:00: total) - subcutaneou 00 into the Exte rna s Solution skin once l Pen-injecto a week r Apixaban 2022-0 Yes [id number] 2.5mg Take 1 Ke lsey (Eliquis) 2-20 tablet Seybold 2.5 MG oral 00:00: (2.5 mg - Tablet 00 total) by Externa mouth 2 l times daily Lisinopril 3-0 Yes [id number] 20mg Take 1 K elsey 20 MG oral 2-20 tablet (20 Sey bold Tablet 00:00: mg total) - 00 by mouth Externa daily l hydroCHLORO 3-0 Yes [id number] 25mg Take 1 Sandra thiazide 25 2-20 tablet (25 Se ybold MG oral 00:00: mg total) - Tablet 00 by mouth Externa daily l Metformin 2022-0 Yes [id number] TAKE 2 Ke lsey HCl 500 MG 2-03 TABLETS(10 Sey bold oral Tablet 00:00: 00 MG) BY - 00 MOUTH Externa TWICE l DAILY WITH MEALS Metformin 2022-0 Yes [id number] TAKE 2 Ke lsey HCl 500 MG 2-03 TABLETS(10 Sey bold oral Tablet 00:00: 00 MG) BY - 00 MOUTH Externa TWICE l DAILY WITH MEALS Metformin 2022-0 Yes [id number] TAKE 2 Ke lsey HCl 500 MG 2-03 TABLETS(10 Sey bold oral Tablet 00:00: 00 MG) BY - 00 MOUTH Externa TWICE l DAILY WITH MEALS Metformin 2022-0 Yes [id number] TAKE 2 Ke lsey HCl 500 MG 2-03 TABLETS(10 Sey bold oral Tablet 00:00: 00 MG) BY - 00 MOUTH Externa TWICE l DAILY WITH MEALS [place]-3 2022-0 2023- No [id number] 2000mg Take 2 Sandra Fatty Acids 1-29 02-20 capsules Sey bold 1000 MG 00:00: 00:00 (2,000 mg - oral 00 :00 total) by Externa Capsule mouth 2 l times daily Amlodipine 2022-0 2023- No Take by Shaun sey Besylate 10 -24 -24 mouth Seybol d MG oral 09:02: 00:00 every 24 - Tablet 12 :00 hours Externa l Fluconazole 2022-0 2023- No [id number] fluconazol Sandra 150 MG oral -24 -24 e 150 mg Sey bold Tablet 08:34: 00:00 tablet - 57 :00 Externa l Apixaban 2022-0 Yes [id number] 2.5mg Take 1 Ke lsey (Eliquis) -24 tablet Seybold 2.5 MG oral 00:00: (2.5 mg - Tablet 00 total) by Externa mouth 2 l times daily hydroCHLORO 2022-0 Yes [id number] 25mg Take 1 Sandra thiazide 25 1-24 tablet (25 Se ybold MG oral 00:00: mg total) - Tablet 00 by mouth Externa daily l Metformin 2022-0 Yes [id number] 1000mg Take 2 Sandra HCl 500 MG 1-24 tablets Seybol d oral Tablet 00:00: (1,000 mg - 00 total) by Externa mouth in l the morning and 2 tablets (1,000 mg total) in the evening. Take with meals. Lisinopril 2023-0 Yes [id number] 20mg Take 1 K elsey 20 MG oral 1-24 tablet (20 Sey bold Tablet 00:00: mg total) - 00 by mouth Externa daily l Tirzepatide Yes [id number] 2.5mg Inject 0.5 Sandra (Mounjaro) 1-24 mL (2.5 mg Sey bold 2.5 00:00: total) - MG/0.5ML 00 into the Externa subcutaneou skin once l s Solution a week Pen-injecto r Atorvastati Yes [id number] 40mg Take 1 Sandra n Calcium 1-24 tablet (40 Seyb old 40 MG oral 00:00: mg total) - Tablet 00 by mouth Externa daily l Atorvastati Yes [id number] 40mg Take 1 Sandra n Calcium 1-24 tablet (40 Seyb old 40 MG oral 00:00: mg total) - Tablet 00 by mouth Externa daily l Atorvastati 2022- No [id number] 40mg Take 1 Sandra n Calcium -24 03-01 tablet (40 Sey bold 40 MG oral 00:00: 00:00 mg total) - Tablet 00 :00 by mouth Externa daily l Apixaban 2022- No [id number] 2.5mg Take 1 K elsey (Eliquis) 10-12 02-20 tablet Seybold 2.5 MG oral 00:00: 00:00 (2.5 mg - Tablet 00 :00 total) by Externa mouth 2 l times daily hydroCHLORO 0 2022- No [id number] 25mg Take 1 Sandra thiazide 25 -24 02-20 tablet (25 S eybold MG oral 00:00: 00:00 mg total) - Tablet 00 :00 by mouth Externa daily l Lisinopril 0 2022- No [id number] 20mg Take 1 Sandra 20 MG oral -24 02-20 tablet (20 Se ybold Tablet 00:00: 00:00 mg total) - 00 :00 by mouth Externa daily l Tirzepatide 0 2022- No [id number] 2.5mg Inject 0.5 Sandra (Mounjaro) -24 02-20 mL (2.5 mg Se ybold 2.5 00:00: 00:00 total) - MG/0.5ML 00 :00 into the Externa subcutaneou skin once l s Solution a week Pen-injecto r Atorvastati 2022- No [id number] 40mg Take 1 Sandra n Calcium -24 24 tablet (40 Sey bold 40 MG oral 00:00: 00:00 mg total) - Tablet 00 :00 by mouth Externa daily l Fluconazole Yes [id number] fluconazol Sandra 150 MG oral 4-15 e 150 mg Seyb old Tablet 14:36: tablet 04 Sodium 2021- No [id number] Dakin's Ke lsey Hypochlorit 15 -15 Solution Sey bold e (Dakins, 14:35: 00:00 0.5 % full 44 :00 strength,) 0.5 % apply externally Solution Silver 2021- No [id number] SSD 1 % Ke lsey sulfADIAZIN 15 -15 topical Seyb old E (SSD) 1 % 14:35: 00:00 cream apply 32 :00 APPLY A externally 1/16 INCH Cream THICK LAYER TO ENTIRE BURN AREA TOPICALLY TWICE DAILY hydroCHLORO Yes [id number] TAKE 1 Sandra thiazide 25 4-08 TABLET(25 Sey bold MG oral 00:00: MG) BY Tablet 00 MOUTH DAILY hydroCHLORO 2022- No [id number] TAKE 1 Sandra thiazide 25 4-08 -24 TABLET(25 Se ybold MG oral 00:00: 00:00 MG) BY - Tablet 00 :00 MOUTH Externa DAILY l TRIMETHOPRI 2021- No 1{tbl} Take 1 K elsey M-SULFAMETH 4-05 -16 tablet by Se ybold OXAZOLE 00:00: 04:59 mouth 3 (Bactrim 00 :00 times DS) 800-160 daily for MG oral 10 days Tablet Ceftriaxone 2021- No [id number] 2g K elsey (ROCEPHIN) 2-15 -15 Seybold injection 20:30: 21:10 00 :00 Ceftriaxone 2021- No [id number] 2g 2 g, K elsey (ROCEPHIN) 11-03 intramuscu Se ybold injection 20:30: 21:10 lar, ONCE, 00 :00 1 dose, On Tue11/03/21 at 1430
Fo r IM preparatio n, each 1 gram vial diluted with 2.1 mL 1% lidocaine to make 350 mg/mL. Inject desired dose IM.
Levofloxaci 2021- No [id number] 100mL 100 mL Sandra n in 11-03 every 24 Seybold Dextrose 5 14:17: 00:00 hours % 20 :00 (LEVAQUIN) 500 MG/100ML intravenous Solution Amoxicillin 2021- No [id number] amoxicilli Sandra -Pot 11-03 n 875 Seybold Clavulanate 14:17: 00:00 mg-potassi 875-125 MG 20 :00 um oral Tablet clavulanat e 125 mg tablet TAKE 1 TABLET BY MOUTH EVERY 12 HOURS Sodium Yes [id number] Dakin's Shaun sey Hypochlorit 2-15 Solution Seyb old e (Dakins, 13:16: 0.5 % full 01 strength,) 0.5 % apply externally Solution Silver Yes [id number] SSD 1 % Shaun sey sulfADIAZIN 2-15 topical Seybo ld E (SSD) 1 % 13:16: cream apply 01 APPLY A externally 1/16 INCH Cream THICK LAYER TO ENTIRE BURN AREA TOPICALLY TWICE DAILY Fluconazole Yes [id number] fluconazol Sandra 150 MG oral 2-15 e 150 mg Seyb old Tablet 13:16: tablet 01 TRIMETHOPRI 2021- No [id number] 1{tbl} Take 1 Sandra M-SULFAMETH -07 11-06 tablet by Se ybold OXAZOLE 00:00: 05:59 mouth 2 800-160 MG 00 :00 times oral Tablet daily for 10 days TRIMETHOPRI Yes [id number] sulfametho Sandra M-SULFAMETH 2- xazole 800 Se ybold OXAZOLE 08:50: mg-trimeth 800-160 MG 14 oprim 160 oral Tablet mg tablet TAKE 1 TABLET BY MOUTH EVERY 12 HOURS FOR 5 DAYS Sodium Yes [id number] Dakin's Shaun sey Hypochlorit - Solution Seyb old e (Dakins, 08:50: 0.5 % full 14 strength,) 0.5 % apply externally Solution Silver Yes [id number] SSD 1 % Shaun sey sulfADIAZIN 10-20 topical Seybo ld E (SSD) 1 % 08:50: cream apply 14 APPLY A externally 1/16 INCH Cream THICK LAYER TO ENTIRE BURN AREA TOPICALLY TWICE DAILY Levofloxaci Yes [id number] 100mL 100 mL Sandra n in - every 24 Seybold Dextrose 5 08:50: hours % 14 (LEVAQUIN) 500 MG/100ML intravenous Solution Fluconazole Yes [id number] fluconazol Sandra 150 MG oral 10-20 e 150 mg Seyb old Tablet 08:50: tablet 14 Amoxicillin Yes [id number] amoxicilli Sandra -Pot 10-20 n 875 Seybold Clavulanate 08:50: mg-potassi 875-125 MG 14 um oral Tablet clavulanat e 125 mg tablet TAKE 1 TABLET BY MOUTH EVERY 12 HOURS Cyclobenzap Yes [id number] 10mg Q.[id number] Take 1 Sandra rine HCl 10 10-20 [id number] tablet (10 Seybold MG oral 00:00: 3D mg total) Tablet 00 by mouth 3 times daily as needed for muscle spasms Sennosides Yes [id number] 1{tbl} Take 1 Sandra (Senna) 8.6 10-20 9102 tablet by Sey bold MG oral 00:00: mouth 2 Tablet 00 times daily Metformin Yes [id number] 1000mg Take 2 Sandra HCl 500 MG 2- tablets Seybol d oral Tablet 00:00: (1,000 mg 00 total) by mouth 2 times daily (with meals) Dulaglutide Yes [id number] 1.5mg Inject 1.5 Sandra (Trulicity) 2-01 mg into Seybo ld 1.5 00:00: the skin MG/0.5ML 00 once a subcutaneou week s Solution Pen-injecto r Metformin Yes [id number] 1000mg Take 2 Sandra HCl 500 MG 2-01 tablets Seybol d oral Tablet 00:00: (1,000 mg 00 total) by mouth 2 times daily (with meals) Dulaglutide Yes [id number] 1.5mg Inject 1.5 Sandra (Trulicity) 2-01 mg into Seybo ld 1.5 00:00: the skin MG/0.5ML 00 once a subcutaneou week s Solution Pen-injecto r Cyclobenzap Yes [id number] 10mg Q.[id number] Take 1 Sandra rine HCl 10 10-20 [id number] tablet (10 Seybold MG oral 00:00: 3D mg total) Tablet 00 by mouth 3 times daily as needed for muscle spasms Sennosides Yes [id number] 1{tbl} Take 1 Sandra (Senna) 8.6 10-20 9102 tablet by Sey bold MG oral 00:00: mouth 2 Tablet 00 times daily Metformin Yes [id number] 1000mg Take 2 Sandra HCl 500 MG 2-01 tablets Seybol d oral Tablet 00:00: (1,000 mg 00 total) by mouth 2 times daily (with meals) Dulaglutide Yes [id number] 1.5mg Inject 1.5 Sandra (Trulicity) 2-01 mg into Seybo ld 1.5 00:00: the skin MG/0.5ML 00 once a subcutaneou week s Solution Pen-injecto r Metformin 2021-0 2022- No [id number] 1000mg Take 2 Sandra HCl 500 MG 2-01 01-24 tablets Seybo ld oral Tablet 00:00: 00:00 (1,000 mg - 00 :00 total) by Externa mouth 2 l times daily (with meals) Dulaglutide 2021-0 2022- No [id number] 1.5mg Inject 1.5 Sandra (Trulicity) 2-01 01-24 mg into Seyb old 1.5 00:00: 00:00 the skin - MG/0.5ML 00 :00 once a Externa subcutaneou week l s Solution Pen-injecto r Cyclobenzap 2021-0 2022- No [id number] 10mg Q.[id number] Take 1 Sandra rine HCl 10 2- 04-15 [id number] tablet (10 Seybold MG oral 00:00: 00:00 3D mg total) Tablet 00 :00 by mouth 3 times daily as needed for muscle spasms Sennosides 2021- No [id number] 1{tbl} Take 1 Sandra (Senna) 8.6 10-20 9102 tablet by Se ybold MG oral 00:00: 00:00 mouth 2 Tablet 00 :00 times daily SSD 1 % Yes [id number] APPLY A Ke lsey apply 10-07/16 INCH Seybold externally 00:00: THICK Cream 00 LAYER TO ENTIRE BURN AREA TOPICALLY TWICE DAILY SSD 1 % Yes [id number] APPLY A Ke lsey apply 10-07/16 INCH Seybold externally 00:00: THICK Cream 00 LAYER TO ENTIRE BURN AREA TOPICALLY TWICE DAILY SSD 1 % 2021- No [id number] APPLY A K elsey apply 10-07/16 INCH Seybold externally 00:00: 00:00 THICK Cream 00 :00 LAYER TO ENTIRE BURN AREA TOPICALLY TWICE DAILY dapaglifloz Yes 5mg Take [address] in -07 [facility] 18:24: Medica l mg tablet 37 [...] lisinopriL Yes lisinopril [facility] (PRINIVIL,Z 1-07 20 mg [facility] ESTRIL) 20 18:24: tablet Medic al MG tablet 37 [place] lisinopriL Yes lisinopril [facility] (PRINIVIL,Z -07 20 mg [facility] ESTRIL) 20 18:24: tablet Medic al MG tablet 37 [place] dapaglifloz Yes 5mg Take [address] in 09-25 by mouth. [facility] (Farxiga) 5 18:24: Medica l mg tablet 37 [place] collagenase Yes Santyl [address] [facility] (SantyL) 09-25 unit/gram [facility] 250 units/g 18:24: topical Med ical ointment 37 ointment Center Apply a nickel thick layer (2 mm) to wound daily as directed. Sodium 2021- No [id number] 10mL 10 mL as K elsey chloride 09-25 needed Seybold flush 0.9 % 00:00: 05:59 intravenous 00 :00 Solution Heparin 2021- No [id number] 300U 300 units Sandra Sodium Lock 09-25 as needed Se ybold Flush 100 00:00: 05:59 UNIT/ML 00 :00 intravenous Solution Morphine Yes [id number] morphine Sandra Sulfate ER -06 ER 15 mg Seybo ld 15 MG oral 00:00: tablet,ext Tab CR 00 ended release Morphine Yes [id number] morphine Sandra Sulfate ER -06 ER 15 mg Seybo ld 15 MG oral 00:00: tablet,ext Tab CR 00 ended release Morphine 2021- No [id number] morphine Sandra Sulfate ER 09-24 04-15 ER 15 mg Seyb old 15 MG oral 00:00: 00:00 tablet,ext Tab CR 00 :00 ended release ceFAZolin 2021- No [id number] 2g Inject 2 g Sandra Sodium-Dext 09-24 into the Sey bold stefania 2-4 00:00: 05:59 vein GM/100ML-% 00 :00 intravenous Solution levoFLOXaci 2020-09 Yes [id number] TAKE 1 Sandra n 750 MG 1-12 TABLET BY Seybol d oral Tablet 00:00: MOUTH 00 EVERY DAY UNTIL ALL TAKEN levoFLOXaci 2020-09- No [id number] TAKE 1 Sandra n 750 MG -12 02-15 TABLET BY Seybo ld oral Tablet 00:00: 00:00 MOUTH 00 :00 EVERY DAY UNTIL ALL TAKEN becaplermin Yes Apply [facility]Re[facility]ex[facility] 04-16 topically. Baron es 0.01 % gel 00:00: Medical 00 [place] becaplermin Yes Apply [facility] (Regranex) 04-16 topically. Baron es 0.01 % gel 00:00: Medical 00 [place] Becaplermin Yes [id number] Apply 1 Sandra (Regranex) 04-16 applicatio Sey bold 0.01 % 00:00: n apply 00 topically externally daily Gel Becaplermin Yes [id number] Apply 1 Sandra (Regranex) 04-16 applicatio Sey bold 0.01 % 00:00: n apply 00 topically externally daily Gel Doxycycline Yes [id number] 100mg Take 1 Sandra Hyclate 100 04-16 tablet Seybol d MG oral 00:00: (100 mg Tablet 00 total) by mouth 2 times daily Becaplermin Yes [id number] Apply 1 Sandra (Regranex) 04-16 applicatio Sey bold 0.01 % 00:00: n apply 00 topically externally daily Gel levoFLOXaci Yes [id number] 500mg Take 1 Sandra n 04-16 tablet Seybold (Levaquin) 00:00: (500 mg 500 MG oral 00 total) by Tablet mouth daily becaplermin Yes Apply [facility] (Regranex) 04-16 topically. Baron es 0.01 % gel 00:00: Medical 00 [place] Becaplermin 2022- No [id number] Apply 1 Sandra (Regranex) 04-16 applicatio Se ybold 0.01 % 00:00: 00:00 n - apply 00 :00 topically Externa externally daily l Gel Doxycycline 2021- No [id number] 100mg Take 1 Sandra Hyclate 100 04-16 tablet Seybo ld MG oral 00:00: 00:00 (100 mg Tablet 00 :00 total) by mouth 2 times daily levoFLOXaci 2021- No [id number] 500mg Take 1 Sandra n 04-16 tablet Seybold (Levaquin) 00:00: 00:00 (500 mg 500 MG oral 00 :00 total) by Tablet mouth daily insulin Yes Takes [facility] syringe-nee 5-27 insulin [facility] dle U-100 00:00: BID Medical 0.5 mL 30 00 Center gauge x 5/16" Syrg insulin Yes [address] [facility] [address] lispro 5-27 SQ before [facility] protamine-i 00:00: breakfast M edical nsulin 00 and 15 Center lispro units SQ (HumaLOG before Mix supper 75-25,U-100 meal ,Insuln) 100 unit/mL (75-25) Susp injection dulaglutide Yes 1.5mg Inject 1.[address] [facility] (Trulicity) 5-27 mg [facility] 1.5 mg/0.5 00:00: subcutaneo M edical mL PnIj 00 usly. Center insulin Yes Takes [facility] syringe-[facility] 5-27 [facility] U-100 00:00: BID Medical 0.5 mL 30 00 Center gauge x 5/16" Syrg insulin Yes [address] [facility] lispro 5-27 SQ before [facility] protamine-i 00:00: breakfast M edical nsulin 00 and 15 Center lispro units SQ (HumaLOG before Mix supper 75-25,U-100 meal ,Insuln) 100 unit/mL (75-25) Susp injection dulaglutide Yes 1.5mg Inject 1.[address] [facility] (Trulicity) 5-27 mg [facility] 1.5 mg/0.5 00:00: subcutaneo M edical mL PnIj 00 usly. Center Insulin Yes [id number] Takes [facility]ela ey Syringe-Nee 5-27 insulin Seybo ld dle U-100 00:00: BID 30G X 5/16" 00 0.5 ML does not apply Misc Insulin Yes [id number] Takes [facility] ey Syringe-Nee 5-27 insulin Seybo ld dle U-100 00:00: BID - 30G X 5/16" 00 Externa 0.5 ML does l not apply Misc Insulin 0 Yes [id number] Takes [facility] ey Syringe-Nee 5-27 insulin Seybo ld dle U-100 00:00: BID - 30G X 5/16" 00 Externa 0.5 ML does l not apply Misc Insulin 0 Yes [id number] Takes [facility] ey Syringe-Nee 5-27 insulin Seybo ld dle U-100 00:00: BID - 30G X 516" 00 Externa 0.5 ML does l not apply Misc Insulin 0 Yes [id number] Takes [facility] ey Syringe-Nee 5-27 insulin Seybo ld dle U-100 00:00: BID - 30G X 516" 00 Externa 0.5 ML does l not apply Misc Insulin 0 Yes [id number] Takes [facility] ey Syringe-Nee 5-27 insulin Seybo ld dle U-100 00:00: BID - 30G X 5/16" 00 Externa 0.5 ML does l not apply Misc HUMALOG MIX 0 Yes [id number] 20 units Sandra 75/25 5-27 SQ before Seybold (75-25) 100 00:00: breakfast UNIT/ML SC 00 and 15 SUSP units SQ before supper meal Insulin 0 Yes [id number] Takes [facility]ela ey Syringe-Nee 5-27 insulin Seybo ld dle U-100 00:00: BID 30G X 5/16" 00 0.5 ML does not apply Misc HUMALOG MIX 0 Yes [id number] 20 units Sandra 75/25 5-27 SQ before Seybold (75-25) 100 00:00: breakfast UNIT/ML SC 00 and 15 SUSP units SQ before supper meal Insulin 0 Yes [id number] Takes [facility]ela ey Syringe-Nee 5-27 insulin Seybo ld dle U-100 00:00: BID 30G X 5/16" 00 0.5 ML does not apply Misc insulin [address] [facility] syringe[facility]nee 5-27 insulin [facility] U-100 00:00: BID Medical 0.5 mL 30 00 Center gauge x 5/16" Syrg insulin Yes [address] [facility] lispro 5-27 SQ before [facility] protamine-i 00:00: breakfast M edical nsulin 00 and 15 Center lispro units SQ (HumaLOG before Mix supper 75-25,U-100 meal ,Insuln) 100 unit/mL (75-25) Susp injection dulaglutide Yes 1.5mg Inject 1.[address] [facility] (Trulicity) 5-27 mg [facility] 1.5 mg/0.5 00:00: subcutaneo M edical mL PnIj 00 usly. Center HUMALOG MIX 2021- No [id number] 20 units Sandra 75/25 5-27 04-15 SQ before Seybold (75-25) 100 00:00: 00:00 breakfast UNIT/ML SC 00 :00 and 15 SUSP units SQ before supper meal Dulaglutide 2021- No [id number] 1.5mg Inject 1.5 Sandra (Trulicity) 5-27 02-01 mg into Seyb old 1.5 00:00: 00:00 the skin MG/0.5ML 00 :00 once a subcutaneou week s Solution Pen-injecto r Lisinopril Yes [id number] 40mg Take 1 K elsey 40 MG oral 4-13 tablet (40 Sey bold Tablet 00:00: mg total) 00 by mouth daily Lisinopril Yes [id number] 40mg Take 1 K elsey 40 MG oral 4-13 tablet (40 Sey bold Tablet 00:00: mg total) 00 by mouth daily Lisinopril Yes [id number] 40mg Take 1 K elsey 40 MG oral 4-13 tablet (40 Sey bold Tablet 00:00: mg total) 00 by mouth daily Lisinopril 2022- No [id number] 40mg Take 1 Sandra 40 MG oral 4-13 01-24 tablet (40 Se ybold Tablet 00:00: 00:00 mg total) - 00 :00 by mouth Externa daily l Metformin 2021- No [id number] 1000mg Take 2 Sandra HCl 500 MG 4-13 02- tablets Seybo ld oral Tablet 00:00: 00:00 (1,000 mg 00 :00 total) by mouth 2 times daily (with meals) sildenafiL 2020- Yes 100mg Take [address] [facility] [address] [facility] (VIAGRA) 4-08 mg by [facility] 100 MG 00:00: mouth. Medical tablet 00 [place] atorvastati Yes atorvastat [facility] (LIPITOR) 4-08 in 40 mg Luke s 40 MG 00:00: tablet Medical tablet 00 [place] sildenafiL 2020- Yes 100mg Take [address] [facility] [address] (VIAGRA) 4-08 mg by [facility] 100 MG 00:00: mouth. Medical tablet 00 [place] atorvastati Yes atorvastat [facility] (LIPITOR) 4-08 in 40 mg Luke s 40 MG 00:00: tablet Medical tablet 00 [place] Apixaban 2020- Yes [id number] 2.5mg Take 1 [facility] (Eliquis) 4-08 tablet Seybold 2.5 MG oral 00:00: (2.5 mg Tablet 00 total) by mouth 2 times daily Sildenafil 2020- Yes [id number] 100mg Take 1 Sandra Citrate 100 4-08 tablet Seybol d MG oral 00:00: (100 mg Tablet 00 total) by mouth as needed for erectile dysfunctio n Atorvastati 2020- Yes [id number] 40mg Take 1 Sandra n Calcium 4-08 tablet (40 Seyb old 40 MG oral 00:00: mg total) Tablet 00 by mouth daily Sildenafil 2020-0 Yes [id number] 100mg Take 1 Sandra Citrate 100 4-08 tablet Seybol d MG oral 00:00: (100 mg - Tablet 00 total) by Externa mouth as l needed for erectile dysfunctio n Sildenafil 2020- Yes [id number] 100mg Take 1 [facility] Citrate 100 4-08 tablet Seybol d MG oral 00:00: (100 mg - Tablet 00 total) by Externa mouth as l needed for erectile dysfunctio n Sildenafil 2020-0 Yes [id number] 100mg Take 1 Sandra Citrate 100 4-08 tablet Seybol d MG oral 00:00: (100 mg - Tablet 00 total) by Externa mouth as l needed for erectile dysfunctio n Sildenafil Yes [id number] 100mg Take 1 Sandra Citrate 100 4-08 tablet Seybol d MG oral 00:00: (100 mg - Tablet 00 total) by Externa mouth as l needed for erectile dysfunctio n hydroCHLORO Yes [id number] 25mg Take 1 Sandra thiazide 25 4-08 tablet (25 Se ybold MG oral 00:00: mg total) Tablet 00 by mouth daily Sildenafil Yes [id number] 100mg Take 1 Sandra Citrate 100 4-08 tablet Seybol d MG oral 00:00: (100 mg - Tablet 00 total) by Externa mouth as l needed for erectile dysfunctio n Apixaban Yes [id number] 2.5mg Take 1 [place] [facility] (Eliquis) 4-08 tablet Seybold 2.5 MG oral 00:00: (2.5 mg Tablet 00 total) by mouth 2 times daily Sildenafil Yes [id number] 100mg Take 1 Sandra Citrate 100 4-08 tablet Seybol d MG oral 00:00: (100 mg Tablet 00 total) by mouth as needed for erectile dysfunctio n Atorvastati Yes [id number] 40mg Take 1 Sandra n Calcium 4-08 tablet (40 Seyb old 40 MG oral 00:00: mg total) Tablet 00 by mouth daily Collagenase Yes [id number] Apply 1 Sandra (Santyl) 4-08 applicatio Seybo ld 250 UNIT/GM 00:00: n apply 00 topically externally daily Ointment hydroCHLORO Yes [id number] 25mg Take 1 Sandra thiazide 25 4-08 tablet (25 Se ybold MG oral 00:00: mg total) Tablet 00 by mouth daily Apixaban Yes [id number] 2.5mg Take 1 [facility] (Eliquis) 4-08 tablet Seybold 2.5 MG oral 00:00: (2.5 mg Tablet 00 total) by mouth 2 times daily Sildenafil Yes [id number] 100mg Take 1 Sandra Citrate 100 4-08 tablet Seybol d MG oral 00:00: (100 mg Tablet 00 total) by mouth as needed for erectile dysfunctio n Atorvastati Yes [id number] 40mg Take 1 Sandra n Calcium 4-08 tablet (40 Seyb old 40 MG oral 00:00: mg total) Tablet 00 by mouth daily Collagenase Yes [id number] Apply 1 Sandra (Santyl) 4-08 applicatio Seybo ld 250 UNIT/GM 00:00: n apply 00 topically externally daily Ointment atorvastati Yes [facility]orvastat [facility] (LIPITOR) 4-08 in 40 mg Luke s 40 MG 00:00: tablet Medical tablet 00 [place] sildenafiL Yes 100mg Take [address] (VIAGRA) 4-08 mg by [facility] 100 MG 00:00: mouth. Medical tablet [address] [place] [address] Apixaban 2022- No [id number] 2.5mg Take 1 K elsey (Eliquis) 12-25-24 tablet Seybold 2.5 MG oral 00:00: 00:00 (2.5 mg - Tablet 00 :00 total) by Externa mouth 2 l times daily Atorvastati 2022- No [id number] 40mg Take 1 Sandra n Calcium -24 tablet (40 Sey bold 40 MG oral 00:00: 00:00 mg total) - Tablet 00 :00 by mouth Externa daily l Collagenase 2021- No [id number] Apply 1 Sandra (Santyl) 4-08 04-15 applicatio [...] Univers (NS) 0-18 ity of injection 17:12: [place] [address] [place] [address] NaCl 0.9% 2016-09 Yes 10mL Univers (NS) 0-18 ity of injection 17:12: [place] [address] [place] [address] NaCl 0.9% 2016-09 Yes 10mL Univers (NS) 0-18 ity of injection 17:12: [place] [address] [place] [address] NaCl 0.9% 2016-09 Yes 10mL Univers (NS) 0-18 ity of injection 17:12: [place] [address] [place] [address] NaCl 0.9% 2016-09 Yes 10mL Univers (NS) 0-18 ity of injection 17:12: [place] [address] [place] [address] NaCl 0.9% 2016-09 Yes 10mL Univers (NS) 0-18 ity of injection 17:12: [place] [address] [place] [address] NaCl 0.9% 2016-09 Yes 10mL Univers (NS) 0-18 ity of injection 17:12: [address] NaCl 0.9% 2016-09 Yes 10mL Univers (NS) 0-18 ity of injection 17:12: [place] [address] [place] [address] NaCl 0.9% 2016-09 Yes 10mL Univers (NS) 0-18 ity of injection 17:12: [address] amLODIPine 2016-09 Yes [id number] 10mg Take 1 U nivers 10 mg 0-16 tablet by ity of tablet 00:00: [facility] 00 daily. [facility] insulin 2016-09 Yes [id number] 40U inject 40 U nivers glargine 0-16 Units ity of 100 unit/mL 00:00: [place] injection 00 skin at Medical bedtime. [place] blood sugar 2016-09 Yes [id number] Use TID, Univers diagnostic 0-16 DX E11.9 ity o f strip 00:00: ([facility] 00 [facility] approval) lancets-blo 2016-09 Yes [id number] 1{each} 1 Each 2 Univers od glucose 0-16 (two) ity of strips 30 00:00: times [place] gauge Cmpk 00 daily. [facility] Blood-Gluco 2016-09 Yes [id number] Use TID, Univers se Meter 0-16 DX E11.9 ity of Kit 00:00: ([facility] 00 upon [facility] approval) sildenafil 2016-09 Yes [id number] Take 1 Tab Univers 25 mg 0-16 PO Daily 1 ity of tablet 00:00: hr (range: [place] 00 30 min - 4 Medical hrs) Branch before sexual activity as needed metFORMIN 2016-09 Yes [id number] 1000mg Take 2 [facility] 500 mg 0-16 tablets by ity of tablet 00:00: mouth 2 [place] 00 (two) Medical times Branch daily with meals. hydroCHLORO 2016-09 Yes [id number] 25mg Take 1 [facility] thiazide 25 0-16 tablet by ity of mg tablet 00:00: mouth [place] 00 daily. Medical Branch lisinopril 2016-09 Yes [id number] 5mg Take 1 U nivers 5 mg tablet 0-16 tablet by ity of 00:00: mouth [place] 00 daily. Medical Branch amLODIPine 2016-09 Yes [id number] 10mg Take 1 U nivers 10 mg 0-16 tablet by ity of tablet 00:00: mouth [place] 00 daily. Medical Branch insulin 2016-09 Yes [id number] 40U inject 40 U nivers glargine 0-16 Units ity of 100 unit/mL 00:00: [place] injection 00 skin at Medical bedtime. Branch blood sugar 2016-09 Yes [id number] Use TID, Univers diagnostic 0-16 DX E11.9 ity o f strip 00:00: ([place] [address] upon [facility] Branch approval) lancets-blo 2016-09 Yes [id number] 1{each} 1 Each 2 Univers od glucose 0-16 (two) ity of strips 30 00:00: times [place] gauge Cmpk 00 daily. Medical Branch Blood-Gluco 2016-09 Yes [id number] Use TID, Univers se Meter 0-16 DX E11.9 ity of Kit 00:00: ([place] [address] upon [facility] Branch approval) sildenafil 2016-09 Yes [id number] Take 1 Tab Univers 25 mg 0-16 PO Daily 1 ity of tablet 00:00: hr (range: [place] 00 30 min - 4 Medical hrs) Branch before sexual activity as needed metFORMIN 2016-09 Yes [id number] 1000mg Take 2 [facility] 500 mg 0-16 tablets by ity of tablet 00:00: mouth 2 [place] 00 (two) Medical times Branch daily with meals. hydroCHLORO 2016-09 Yes [id number] 25mg Take 1 [facility] thiazide 25 0-16 tablet by ity of mg tablet 00:00: mouth [place] 00 daily. Medical Branch lisinopril 2016-09 Yes [id number] 5mg Take 1 U nivers 5 mg tablet 0-16 tablet by ity of 00:00: mouth [place] 00 daily. Medical Branch amLODIPine 2016-09 Yes [id number] 10mg Take 1 U nivers 10 mg 0-16 tablet by ity of tablet 00:00: mouth [place] 00 daily. Medical Branch insulin 2016-09 Yes [id number] 40U inject 40 U nivers glargine 0-16 Units ity of 100 unit/mL 00:00: [place] injection 00 skin at Medical bedtime. Branch blood sugar 2016-09 Yes [id number] Use TID, Univers diagnostic 0-16 DX E11.9 ity o f strip 00:00: ([place] [address] upon [facility] approval) lancets-blo 2016-09 Yes [id number] 1{each} 1 Each 2 Univers od glucose 0-16 (two) ity of strips 30 00:00: times [place] gauge Cmpk 00 daily. Medical Branch Blood-Gluco 2016-09 Yes [id number] Use TID, Univers se Meter 0-16 DX E11.9 ity of Kit 00:00: ([place] [address] upon [facility] approval) sildenafil 2016-09 Yes [id number] Take 1 Tab Univers 25 mg 0-16 PO Daily 1 ity of tablet 00:00: hr (range: [place] 00 30 min - 4 Medical hrs) Branch before sexual activity as needed metFORMIN 2016-09 Yes [id number] 1000mg Take 2 [facility] 500 mg 0-16 tablets by ity of tablet 00:00: mouth 2 [place] 00 (two) Medical times Branch daily with meals. hydroCHLORO 2016-09 Yes [id number] 25mg Take 1 [facility] thiazide 25 0-16 tablet by ity of mg tablet 00:00: mouth [place] 00 daily. Medical Branch lisinopril 2016-09 Yes [id number] 5mg Take 1 U nivers 5 mg tablet 0-16 tablet by ity of 00:00: mouth [place] 00 daily. Medical Branch amLODIPine 2016-09 Yes [id number] 10mg Take 1 U nivers 10 mg 0-16 tablet by ity of tablet 00:00: mouth [place] 00 daily. Medical Branch insulin 2016-09 Yes [id number] 40U inject 40 U nivers glargine 0-16 Units ity of 100 unit/mL 00:00: [place] injection 00 skin at [facility] bedtime. Branch blood sugar 2016-09 Yes [id number] Use TID, Univers diagnostic 0-16 DX E11.9 ity o f strip 00:00: ([address] approval) lancets-blo 2016-09 Yes [id number] 1{each} 1 Each 2 Univers od glucose 0-16 (two) ity of strips 30 00:00: times [place] gauge Cmpk 00 daily. Medical Branch Blood-Gluco 2016-09 Yes [id number] Use TID, Univers se Meter 0-16 DX E11.9 ity of Kit 00:00: ([place] [address] upon [facility] approval) sildenafil 2016-09 Yes [id number] Take 1 Tab Univers 25 mg 0-16 PO Daily 1 ity of tablet 00:00: hr (range: [place] 00 30 min - 4 Medical hrs) Branch before sexual activity as needed metFORMIN 2016-09 Yes [id number] 1000mg Take 2 [facility] 500 mg 0-16 tablets by ity of tablet 00:00: mouth 2 [place] 00 (two) Medical times Branch daily with meals. hydroCHLORO 2016-09 Yes [id number] 25mg Take 1 Univers thiazide 25 0-16 tablet by ity of mg tablet 00:00: mouth [place] 00 daily. Medical Branch lisinopril 2016-09 Yes [id number] 5mg Take 1 U nivers 5 mg tablet 0-16 tablet by ity of 00:00: mouth [place] 00 daily. Medical Branch amLODIPine 2016-09 Yes [id number] 10mg Take 1 U nivers 10 mg 0-16 tablet by ity of tablet 00:00: mouth [place] 00 daily. Medical Branch insulin 2016- Yes [id number] 40U inject 40 U nivers glargine 0-16 Units ity of 100 unit/mL 00:00: [place] injection 00 skin at Medical bedtime. Branch blood sugar 2016-09 Yes [id number] Use TID, Univers diagnostic 0-16 DX E11.9 ity o f strip 00:00: ([address] approval) lancets-blo 2016-09 Yes [id number] 1{each} 1 Each 2 Univers od glucose 0-16 (two) ity of strips 30 00:00: times [place] gauge Cmpk 00 daily. Medical Branch sildenafil 2016-09 Yes [id number] Take 1 Tab Univers 25 mg 0-16 PO Daily 1 ity of tablet 00:00: hr (range: [place] 00 30 min - 4 Medical hrs) Branch before sexual activity as needed Blood-Gluco 2016-09 Yes [id number] Use TID, Univers se Meter 0-16 DX E11.9 ity of Kit 00:00: ([address] Branch approval) sildenafil 2016-09 Yes [id number] Take 1 Tab Univers 25 mg 0-16 PO Daily 1 ity of tablet 00:00: hr (range: [place] 00 30 min - 4 Medical hrs) Branch before sexual activity as needed metFORMIN 2016-09 Yes [id number] 1000mg Take 2 Univers 500 mg 0-16 tablets by ity of tablet 00:00: mouth 2 [place] 00 (two) Medical times Branch daily with meals. metFORMIN 2016-09 Yes [id number] 1000mg Take 2 Univers 500 mg 0-16 tablets by ity of tablet 00:00: mouth 2 [place] 00 (two) Medical times Branch daily with meals. hydroCHLORO 2016-09 Yes [id number] 25mg Take 1 Univers thiazide 25 0-16 tablet by ity of mg tablet 00:00: mouth [place] 00 daily. Medical Branch lisinopril 2016-09 Yes [id number] 5mg Take 1 U nivers 5 mg tablet 0-16 tablet by ity of 00:00: mouth [place] 00 daily. Medical Branch amLODIPine 2016-09 Yes [id number] 10mg Take 1 U nivers 10 mg 0-16 tablet by ity of tablet 00:00: mouth [place] 00 daily. Medical Branch insulin 2016-09 Yes [id number] 40U inject 40 U nivers glargine 0-16 Units ity of 100 unit/mL 00:00: under the [place] injection 00 skin at Medical bedtime. Branch blood sugar 2016-09 Yes [id number] Use TID, Univers diagnostic 0-16 DX E11.9 ity o f strip 00:00: ([address] Branch approval) lancets-blo 2016-09 Yes [id number] 1{each} 1 Each 2 Univers od glucose 0-16 (two) ity of strips 30 00:00: times [place] gauge Cmpk 00 daily. Medical Branch Blood-Gluco 2016-09 Yes [id number] Use TID, Univers se Meter 0-16 DX E11.9 ity of Kit 00:00: ([address] Branch approval) hydroCHLORO 2016-09 Yes [id number] 25mg Take 1 Univers thiazide 25 0-16 tablet by ity of mg tablet 00:00: mouth [place] 00 daily. Medical Branch sildenafil 2016-09 Yes [id number] Take 1 Tab Univers 25 mg 0-16 PO Daily 1 ity of tablet 00:00: hr (range: [place] 00 30 min - 4 Medical hrs) Branch before sexual activity as needed metFORMIN 2016-09 Yes [id number] 1000mg Take 2 [facility] 500 mg 0-16 tablets by ity of tablet 00:00: mouth 2 [place] 00 (two) Medical times Branch daily with meals. hydroCHLORO 2016-09 Yes [id number] 25mg Take 1 [facility] thiazide 25 0-16 tablet by ity of mg tablet 00:00: mouth [place] 00 daily. Medical Branch lisinopril 2016-09 Yes [id number] 5mg Take 1 U nivers 5 mg tablet 0-16 tablet by ity of 00:00: mouth [place] 00 daily. Medical Branch lisinopril 2016-09 Yes [id number] 5mg Take 1 U nivers 5 mg tablet 0-16 tablet by ity of 00:00: mouth [place] 00 daily. Medical Branch amLODIPine 2016-09 Yes [id number] 10mg Take 1 U nivers 10 mg 0-16 tablet by ity of tablet 00:00: mouth [place] 00 daily. Medical Branch insulin 2016-09 Yes [id number] 40U inject 40 U nivers glargine 0-16 Units ity of 100 unit/mL 00:00: under the [place] injection 00 skin at Medical bedtime. Branch blood sugar 2016-09 Yes [id number] Use TID, Univers diagnostic 0-16 DX E11.9 ity o f strip 00:00: ([address] Branch approval) lancets-blo 2016-09 Yes [id number] 1{each} 1 Each 2 Univers od glucose 0-16 (two) ity of strips 30 00:00: times [place] gauge Cmpk 00 daily. Medical Branch Blood-Gluco 2016-09 Yes [id number] Use TID, Univers se Meter 0-16 DX E11.9 ity of Kit 00:00: ([address] approval) amLODIPine 2016-09 Yes [id number] 10mg Take 1 U nivers 10 mg 0-16 tablet by ity of tablet 00:00: mouth [place] 00 daily. Medical Branch sildenafil 2016-09 Yes [id number] Take 1 Tab Univers 25 mg 0-16 PO Daily 1 ity of tablet 00:00: hr (range: [place] 00 30 min - 4 Medical hrs) Branch before sexual activity as needed metFORMIN 2016-09 Yes [id number] 1000mg Take 2 Univers 500 mg 0-16 tablets by ity of tablet 00:00: mouth 2 [place] 00 (two) Medical times Branch daily with meals. hydroCHLORO 2016-09 Yes [id number] 25mg Take 1 Univers thiazide 25 0-16 tablet by ity of mg tablet 00:00: mouth [place] 00 daily. Medical Branch lisinopril 2016-09 Yes [id number] 5mg Take 1 U nivers 5 mg tablet 0-16 tablet by ity of 00:00: mouth [place] 00 daily. Medical Branch amLODIPine 2016-09 Yes [id number] 10mg Take 1 U nivers 10 mg 0-16 tablet by ity of tablet 00:00: mouth [place] 00 daily. Medical Branch insulin 2016-09 Yes [id number] 40U inject 40 U nivers glargine 0-16 Units ity of 100 unit/mL 00:00: under the [place] injection 00 skin at Medical bedtime. Branch insulin 2016-09 Yes [id number] 40U inject 40 U nivers glargine 0-16 Units ity of 100 unit/mL 00:00: under the [place] injection 00 skin at Medical bedtime. Branch blood sugar 2016-09 Yes [id number] Use TID, Univers diagnostic 0-16 DX E11.9 ity o f strip 00:00: ([address] approval) lancets-blo 2016-09 Yes [id number] 1{each} 1 Each 2 Univers od glucose 0-16 (two) ity of strips 30 00:00: times [place] gauge Cmpk 00 daily. Medical Branch Blood-Gluco 2016-09 Yes [id number] Use TID, Univers se Meter 0-16 DX E11.9 ity of Kit 00:00: ([address] approval) blood sugar 2016-09 Yes [id number] Use TID, Univers diagnostic 0-16 DX E11.9 ity o f strip 00:00: ([address] approval) sildenafil 2016-09 Yes [id number] Take 1 Tab Univers 25 mg 0-16 PO Daily 1 ity of tablet 00:00: hr (range: [place] 00 30 min - 4 Medical hrs) Branch before sexual activity as needed metFORMIN 2016-09 Yes [id number] 1000mg Take 2 Univers 500 mg 0-16 tablets by ity of tablet 00:00: mouth 2 [place] 00 (two) Medical times Branch daily with meals. hydroCHLORO 2016-09 Yes [id number] 25mg Take 1 Univers thiazide 25 0-16 tablet by ity of mg tablet 00:00: mouth [place] 00 daily. Medical Branch lisinopril 2016-09 Yes [id number] 5mg Take 1 U nivers 5 mg tablet 0-16 tablet by ity of 00:00: mouth [place] 00 daily. Medical Branch amLODIPine 2016-09 Yes [id number] 10mg Take 1 U nivers 10 mg 0-16 tablet by ity of tablet 00:00: mouth [place] 00 daily. Medical Branch insulin 2016-09 Yes [id number] 40U inject 40 U nivers glargine 0-16 Units ity of 100 unit/mL 00:00: under the [place] injection 00 skin at Medical bedtime. Branch blood sugar 2016-09 Yes [id number] Use TID, Univers diagnostic 0-16 DX E11.9 ity o f strip 00:00: ([facility] upon [facility] approval) lancets-blo 2016-09 Yes [id number] 1{each} 1 Each 2 Univers od glucose 0-16 (two) ity of strips 30 00:00: times [place] gauge Cmpk 00 daily. Medical Branch Blood-Gluco 2016-09 Yes [id number] Use TID, Univers se Meter 0-16 DX E11.9 ity of Kit 00:00: ([facility] upon [facility] approval) lancets-blo 2016-09 Yes [id number] 1{each} 1 Each 2 Univers od glucose 0-16 (two) ity of strips 30 00:00: times [place] gauge Cmpk 00 daily. Medical Branch Blood-Gluco 2016-09 Yes [id number] Use TID, Univers se Meter 0-16 DX E11.9 ity of Kit 00:00: ([place] [address] upon [facility] approval) sildenafil 2016-09 Yes [id number] Take 1 Tab Univers 25 mg 0-16 PO Daily 1 ity of tablet 00:00: hr (range: [place] 00 30 min - 4 Medical hrs) Branch before sexual activity as needed metFORMIN 2016-09 Yes [id number] 1000mg Take 2 [facility] 500 mg 0-16 tablets by ity of tablet 00:00: mouth 2 [place] 00 (two) Medical times Branch daily with meals. hydroCHLORO 2016-09 Yes [id number] 25mg Take 1 Univers thiazide 25 0-16 tablet by ity of mg tablet 00:00: mouth [place] 00 daily. Medical Branch lisinopril 2016-09 Yes [id number] 5mg Take 1 U nivers 5 mg tablet 0-16 tablet by ity of 00:00: mouth [place] 00 daily. Medical Branch amLODIPine 2016-09 Yes [id number] 10mg Take 1 U nivers 10 mg 0-16 tablet by ity of tablet 00:00: mouth [place] 00 daily. Medical Branch insulin 2016-09 Yes [id number] 40U inject 40 U nivers glargine 0-16 Units ity of 100 unit/mL 00:00: under the [place] injection 00 skin at Medical bedtime. Branch blood sugar 2016-09 Yes [id number] Use TID, Univers diagnostic 0-16 DX E11.9 ity o f strip 00:00: ([place] [address] upon [facility] approval) lancets-blo 2016-09 Yes [id number] 1{each} 1 Each 2 Univers od glucose 0-16 (two) ity of strips 30 00:00: times [place] gauge Cmpk 00 daily. Medical Branch Blood-Gluco 2016-09 Yes [id number] Use TID, Univers se Meter 0-16 DX E11.9 ity of Kit 00:00: ([address] approval) sildenafil 2016-09 Yes [id number] Take 1 Tab [facility] 25 mg 0-16 PO Daily 1 ity of tablet 00:00: hr (range: [place] 00 30 min - 4 Medical hrs) Branch before sexual activity as needed metFORMIN 2016-09 Yes [id number] 1000mg Take 2 [facility] 500 mg 0-16 tablets by ity of tablet 00:00: mouth 2 [place] 00 (two) Medical times Branch daily with meals. hydroCHLORO 2016-09 Yes [id number] 25mg Take 1 [facility] thiazide 25 0-16 tablet by ity of mg tablet 00:00: mouth [place] 00 daily. Medical Branch lisinopril 2016-09 Yes [id number] 5mg Take 1 U nivers 5 mg tablet 0-16 tablet by ity of 00:00: mouth [place] 00 daily. Medical Branch amLODIPine 2016-09 Yes [id number] 10mg Take 1 U nivers 10 mg 0-16 tablet by ity of tablet 00:00: mouth [place] 00 daily. Medical Branch insulin 2016-09 Yes [id number] 40U inject 40 U nivers glargine 0-16 Units ity of 100 unit/mL 00:00: under the [place] injection 00 skin at Medical bedtime. Branch blood sugar 2016-09 Yes [id number] Use TID, Univers diagnostic 0-16 DX E11.9 ity o f strip 00:00: ([facility] upon [facility] insurance Branch approval) lancets-blo 2016-09 Yes [id number] 1{each} 1 Each 2 Univers od glucose 0-16 (two) ity of strips 30 00:00: times [place] gauge Cmpk 00 daily. Medical Branch Blood-Gluco 2016-09 Yes [id number] Use TID, Univers se Meter 0-16 DX E11.9 ity of Kit 00:00: ([facility] Branch approval) sildenafil 2016-09 Yes [id number] Take 1 Tab [facility] 25 mg 0-16 PO Daily 1 ity of tablet 00:00: hr (range: [place] 00 30 min - 4 Medical hrs) Branch before sexual activity as needed metFORMIN 2016-09 Yes [id number] 1000mg Take 2 Univers 500 mg 0-16 tablets by ity of tablet 00:00: mouth 2 [place] 00 (two) Medical times Branch daily with meals. hydroCHLORO 2016-09 Yes [id number] 25mg Take 1 Univers thiazide 25 0-16 tablet by ity of mg tablet 00:00: mouth [place] 00 daily. Medical Branch lisinopril 2016-09 Yes [id number] 5mg Take 1 U nivers 5 mg tablet 0-16 tablet by ity of 00:00: mouth [place] 00 daily. Medical Branch amLODIPine 2016-09 Yes [id number] 10mg Take 1 U nivers 10 mg 0-16 tablet by ity of tablet 00:00: mouth [place] 00 daily. Medical Branch insulin 2016-09 Yes [id number] 40U inject 40 U nivers glargine 0-16 Units ity of 100 unit/mL 00:00: [place] injection 00 skin at Medical bedtime. Branch blood sugar 2016-09 Yes [id number] Use TID, Univers diagnostic 0-16 DX E11.9 ity o f strip 00:00: ([place] [id number] upon [facility] insurance Branch approval) lancets-blo 2016-09 Yes [id number] 1{each} 1 Each 2 Univers od glucose 0-16 (two) ity of strips 30 00:00: times [place] gauge Cmpk 00 daily. [facility] Branch Blood-Gluco 2016-09 Yes [id number] Use TID, Univers se Meter 0-16 DX E11.9 ity of Kit 00:00: ([place] [address] upon [facility] Branch approval) sildenafil 2016-09 Yes [id number] Take 1 Tab [facility] 25 mg 0-16 PO Daily 1 ity of tablet 00:00: hr (range: [place] 00 30 min - 4 Medical hrs) Branch before sexual activity as needed metFORMIN 2016-09 Yes [id number] 1000mg Take 2 [facility] 500 mg 0-16 tablets by ity of tablet 00:00: mouth 2 [place] 00 (two) Medical times Branch daily with meals. hydroCHLORO 2016-09 Yes [id number] 25mg Take 1 Univers thiazide 25 0-16 tablet by ity of mg tablet 00:00: mouth [place] 00 daily. [facility] Branch lisinopril 2016-09 Yes [id number] 5mg Take 1 U nivers 5 mg tablet 0-16 tablet by ity of 00:00: mouth [place] 00 daily. [facility] Branch Immunizations Ordered Immunization Filled Immunization Date Status Commen ts Source Name Name Influenza, 2021-08-31 Completed Sandar Sesulemaold Injectable, Mdck, 00:00:00 Quadrivalent With Preservatie Influenza, 2021-08-31 Completed Sandra Lozanoold Injectable, Mdck, 00:00:00 Quadrivalent With Preservatie Influenza, [...] [place] [facility], Pf Covid-19 Vaccine 2020-12-03 Completed Sanrda tony - Moderna (Spikevax), 00:00:00 Exter nal Mrna-lnp, [place] [facility], Pf Covid-19 Vaccine 2020-12-03 Completed Sandra rodriguezld - Moderna (Spikevax), 00:00:00 Exter nal Mrna-lnp, [...] 100 Mcg/0.5ml,IM Covid-19 Vaccine 2020-12-03 Completed Sandra mojicabold (Moderna), Mrna-lnp, 00:00:00 [place] [facility], Pf, 100 Mcg/0.5ml,IM Influenza Virus 2020-06-11 Completed Universit y of Vaccine 00:00:00 [facility] Influenza Virus 2020-06-11 Completed Universit y of Vaccine 00:00:00 [facility] Influenza Virus 2020-06-11 Completed Universit y of Vaccine 00:00:00 [facility] Influenza Virus 2020-06-11 Completed Universit y of Vaccine 00:00:00 [facility] Influenza Virus 2020-06-11 Completed Universit y of Vaccine 00:00:00 [facility] Influenza Virus 2020-06-11 Completed Universit y of Vaccine 00:00:00 [facility] Influenza Virus 2020-06-11 Completed Universit y of Vaccine 00:00:00 [facility] Influenza Virus 2020-06-11 Completed Universit y of Vaccine 00:00:00 [facility] Influenza Virus 2020-06-11 Completed Universit y of Vaccine 00:00:00 [facility] Influenza Virus 2020-06-11 Completed Universit y of Vaccine 00:00:00 [facility] Influenza Virus 2020-06-11 Completed Universit y of Vaccine 00:00:00 [facility] Influenza Virus 2020-06-11 Completed Universit y of Vaccine 00:00:00 [facility] Influenza Virus 2020-06-11 Completed Sandra Se ybold [...] Preservative Free Pneumococcal Vaccine, 2019-08-25 Completed Shaun y Seybold - Polysaccharide 00:00:00 External Influenza, Seasonal, 2019-08-25 Completed Pamela ey Seybold Injectable, 00:00:00 Preservative Free Pneumococcal Vaccine, 2019-08-25 Completed Shaun sey Seybold Polysaccharide 00:00:00 Pneumococcal 2016-11-24 Completed University o f Polysaccharide, 00:00:00 [place] Med ical PPSV23 (PNEUMOVAX) Branch Influenza Virus 2016-11-24 Completed Universit y of Vaccine Quad IM 3+ 00:00:00 [facility] Pneumococcal 2016-11-24 Completed University o f Polysaccharide, 00:00:00 [place] Med ical PPSV23 (PNEUMOVAX) Branch Influenza Virus 2016-11-24 Completed Universit y of Vaccine Quad IM 3+ 00:00:00 [facility] Pneumococcal 2016-11-24 Completed University o f Polysaccharide, 00:00:00 [place] Med ical PPSV23 (PNEUMOVAX) Branch Influenza Virus 2016-11-24 Completed Universit y of Vaccine Quad IM 3+ 00:00:00 [facility] Pneumococcal 2016-11-24 Completed University o f Polysaccharide, 00:00:00 [place] Med ical PPSV23 (PNEUMOVAX) Branch Influenza Virus 2016-11-24 Completed Universit y of Vaccine Quad IM 3+ 00:00:00 [facility] Pneumococcal 2016-11-24 Completed University o f Polysaccharide, 00:00:00 [place] Med ical PPSV23 (PNEUMOVAX) Branch Influenza Virus 2016-11-24 Completed Universit y of Vaccine Quad IM 3+ 00:00:00 [facility] Pneumococcal 2016-11-24 Completed University o f Polysaccharide, 00:00:00 [place] Med ical PPSV23 (PNEUMOVAX) Branch Influenza Virus 2016-11-24 Completed Universit y of Vaccine Quad IM 3+ 00:00:00 [facility] Pneumococcal 2016-11-24 Completed University o f Polysaccharide, 00:00:00 [place] Med ical PPSV23 (PNEUMOVAX) [place] Influenza Virus 2016-11-24 Completed Universit y of Vaccine Quad IM 3+ 00:00:00 [facility] Pneumococcal 2016-11-24 Completed University o f Polysaccharide, 00:00:00 [place] Med ical PPSV23 (PNEUMOVAX) Branch Influenza Virus 2016-11-24 Completed Universit y of Vaccine Quad IM 3+ 00:00:00 [facility] Pneumococcal 2016-11-24 Completed University o f Polysaccharide, 00:00:00 [place] Med ical PPSV23 (PNEUMOVAX) Branch Influenza Virus 2016-11-24 Completed Universit y of Vaccine Quad IM 3+ 00:00:00 [facility] Pneumococcal 2016-11-24 Completed University o f Polysaccharide, 00:00:00 [place] Med ical PPSV23 (PNEUMOVAX) Branch Influenza Virus 2016-11-24 Completed Universit y of Vaccine Quad IM 3+ 00:00:00 [facility] Pneumococcal 2016-11-24 Completed University o f Polysaccharide, 00:00:00 [place] Med ical PPSV23 (PNEUMOVAX) Branch Influenza Virus 2016-11-24 Completed Universit y of Vaccine Quad IM 3+ 00:00:00 [facility] Pneumococcal 2016-11-24 Completed University o f Polysaccharide, 00:00:00 [place] Med ical PPSV23 (PNEUMOVAX) Branch Influenza Virus 2016-11-24 Completed Universit y of Vaccine Quad IM 3+ 00:00:00 [facility] Pneumococcal 2016-11-24 Completed University o f Polysaccharide, 00:00:00 [place] Med ical PPSV23 (PNEUMOVAX) Branch Influenza Virus 2016-11-24 Completed Universit y of Vaccine Quad IM 3+ 00:00:00 [facility] Influenza Virus 2016-11-24 Completed Sandra Se [...] 00:00:00 Td 2016-11-22 Completed University of 00:00:00 [facility] Td 2016-11-22 Completed University of 00:00:00 [facility] Td 2016-11-22 Completed University of 00:00:00 [facility] Td 2016-11-22 Completed University of 00:00:00 [facility] Td 2016-11-22 Completed University of 00:00:00 [facility] Td 2016-11-22 Completed University of 00:00:00 [facility] Td 2016-11-22 Completed University of 00:00:00 [facility] Td 2016-11-22 Completed University of 00:00:00 [facility] Td 2016-11-22 Completed University of 00:00:00 [facility] Td 2016-11-22 Completed University of 00:00:00 [facility] Td 2016-11-22 Completed University of 00:00:00 [facility] Td 2016-11-22 Completed University of 00:00:00 [facility] Td 2016-11-22 Completed University of 00:00:00 [facility] Td (adult) 2016-11-22 Completed Sandra Seybold 00:00:00 [...] 22:09:00 External BMI 2022-12-13 36.05 kg/m2 Sandra ybold - 22:09:00 External Systolic blood 2022-12-13 134 mm[Hg] Sandra Seybol d - pressure 21:39:00 External Diastolic blood 2022-12-13 76 mm[Hg] Sandra Seybo ld - pressure 21:39:00 External Heart rate 2022-12-13 67 /min Sandra ybold - 21:39:00 External Body temperature 2022-12-13 36.89 Makenzie Sandra Seyb old - 21:39:00 External Respiratory rate 2022-12-13 16 /min Sandra Seyb old - 21:39:00 External Body height 2022-12-13 182.9 cm Sandra Seybold - 21:39:00 External Body height 2022-11-17 [...] External Body temperature 2022-10-12 36.56 Makenzie Sandra Pinayb old - 14:28:00 External Respiratory rate 2022-10-12 16 /min Sandra Pinayb old - 14:28:00 External Body height 2022-10-12 182.9 cm Sandra Pinaybold - 14:28:00 External Body weight 2022-10-12 125.193 kg Sandra Pinaybold - 14:28:00 External BMI 2022-10-12 37.43 kg/m2 Sandra Pinaybold - 14:28:00 External Systolic blood 2022-01-01 153 mm[Hg] per pt Sandra Seybol d pressure 19:29:00 Diastolic blood 2022-01-01 93 mm[Hg] per pt Sandra Seybo ld pressure 19:29:00 Body temperature 2022-01-01 36.33 Makenzie Sandra Pinayb old 19:29:00 Body height 2022-01-01 182.9 cm per pt Sandra Seybold 19:29:00 Body weight 2022-01-01 117.935 kg per pt Sandra Seybold 19:29:00 BMI 2022-01-01 35.26 kg/m2 Sandra Seybold 19:29:00 Systolic blood 2021-11-03 158 mm[Hg] Sandra Seybol d pressure 19:16:00 Diastolic blood 2021-11-03 96 mm[Hg] Sandra Seybo ld pressure 19:16:00 Heart rate 2021-11-03 90 /min Sandra Seybold 19:16:00 Body temperature 2021-11-03 36.72 Makenzie Sandra Pinayb old 19:16:00 Respiratory rate 2021-11-03 14 /min Sandra Pinayb old 19:16:00 Body height 2021-11-03 182.9 cm Sandra Seybold 19:16:00 Body weight 2021-11-03 117.935 kg patient reports Sandra Seybo ld 19:16:00 BMI 2021-11-03 35.26 kg/m2 Sandra Seybold 19:16:00 Systolic blood 2021-10-20 136 mm[Hg] Sandra Seybol d pressure 14:49:00 Diastolic blood 2021-10-20 76 mm[Hg] Sandra Seybo ld pressure 14:49:00 Heart rate 2021-10-20 113 /min Sandra Argueta 14:49:00 Body temperature 2021-10-20 36.72 Makenzie Sandra Lozano old 14:49:00 Respiratory rate 2021-10-20 15 /min Sandra Lozano old 14:49:00 Body height 2021-10-20 182.9 cm Sandra Argueta 14:49:00 Body temperature 2020-10-20 36.67 Makenzie University [facility] 16:33:00 [facility] Body height 2020-10-20 180.3 cm University of 16:33:00 [facility] Body weight 2020-10-20 121.11 kg University of 16:33:00 [facility] BMI 2020-10-20 37.24 kg/m2 University of 16:33:00 [facility] Body temperature 2020-09-29 36.44 Makenzie University of 15:34:00 [facility] Body weight 2020-09-29 121.473 kg University of 15:34:00 [facility] BMI 2020-09-29 37.35 kg/m2 University of 15:34:00 [facility] Systolic blood 2020-08-11 177 mm[Hg] University of pressure 19:17:00 [facility] Diastolic blood 2020-08-11 101 mm[Hg] University o f pressure 19:17:00 [facility] Heart rate 2020-08-11 110 /min University of 19:17:00 [facility] Body temperature 2020-08-11 36.44 Makenzie University of 19:15:00 [facility] Respiratory rate 2020-08-11 16 /min University of 19:15:00 [facility] Body height 2020-08-11 180.3 cm University of 19:15:00 [facility] Body weight 2020-08-11 121.473 kg University of 19:15:00 [facility] BMI 2020-08-11 37.35 kg/m2 University of 19:15:00 [facility] Procedures Procedure Date / Time Performed Performing Clinician Luan gonzalez XR FOOT 3+ VW RIGHT 2020-09-29 16:15:00 Kaye Keller [facility] ASSIGNMENT OF BENEFITS 2020-08-11 19:07:32 Doctor Unassigned, No [facility] [place] Name Medical Branch Plan of Care Planned Activity Planned Date [facility] Screening [facility] (12+) [code = Tobacco Cessation Counseling and Screening (12+)] Future Scheduled 2021-09-[address] [facility] 00[facility]00 measurement (procedure) [facility] [code = 07591131] Future Scheduled 2021-09-[address] [facility] 00:00:00 measurement (procedure) [facility] [code = 46822836] Future Scheduled 2021-09-[address] [facility] 00:00:00 measurement (procedure) [facility] [code = 25510814] Future Scheduled 2021-01-28 COVID-19 VACCINE (2 - [...] [facility] 00[facility]00:00 [code = 80709445] Medical Ce nter Future Scheduled 2004 Lipid panel (procedure) [facility] 00:00:00 [code = 08638690] Medical Ce nter Future Scheduled 2004 Lipid panel (procedure) [facility] 00:00:00 [code = 91529247] Medical Ce nter Future Scheduled 1987 HEPATITIS [...] screening [facility]procedure[facility] [code = 460681828] Future Scheduled 1984 Human immunodeficiency [facility] 00:00:00 virus screening [facility] (procedure) [code = 243524690] Future Scheduled 1979 DIABETIC EYE EXAM [code = [facility] 00:00:00 DIABETIC EYE EXAM] Medical C enter Future Scheduled 1979 Diabetic foot examination [facility] 00:00:00 (regime/therapy) [code = [facility] 392656014] Future Scheduled 1979 Urine screening for [facility] 00:00:00 protein (procedure) [code [facility] = 726063264] Future Scheduled 1979 DIABETIC EYE EXAM [code = [facility] 00:00:00 DIABETIC EYE EXAM] Medical C enter Future Scheduled 1979 Diabetic foot examination [facility] 00:00:00 (regime/therapy) [code = [facility] 119449380] Future Scheduled 1979 Urine screening for [facility] 00:00:00 protein (procedure) [code [facility] = 395153193] Future Scheduled 1979 DIABETIC EYE EXAM [code = [facility] 00:00:00 DIABETIC EYE EXAM] Medical C enter Future Scheduled 1979 Diabetic foot examination [facility] 00:00:00 (regime/therapy) [code = [facility] 815453049] Future Scheduled 1979 Urine screening for [facility] 00:00:00 protein (procedure) [code [facility] = 565531102] Future Scheduled 1969 CT Colonography (combo) [facility] 00:00:00 [code = CT Colonography [facility] (combo)] Future Scheduled 1969 Screening for malignant [facility] 00:00:00 neoplasm of colon Medical Ce nter (procedure) [code = 708837199] Future Scheduled 1969 Screening for malignant [facility] 00:00:00 neoplasm of colon Medical Ce nter (procedure) [code = 389475682] Future Scheduled 1969 Screening for malignant [facility] 00:00:00 neoplasm of colon Medical Ce nter (procedure) [code = 699208633] Future Scheduled 1969 Screening for malignant [facility] 00:00:00 neoplasm of colon Medical Ce nter (procedure) [code = 282558797] Future Scheduled 1969 Sigmoidoscopy [code [facility]] Medical Cent[facility] r Future Scheduled 1969 CT Colonography (combo) [facility] 00:00:00 [code = CT Colonography [facility] (combo)] Future Scheduled 1969 Screening for malignant [facility] 00:00:00 neoplasm of colon Medical Ce nter (procedure) [code = 763806050] Future Scheduled 1969 Screening for malignant [facility] 00:00:00 neoplasm of colon Medical Ce nter (procedure) [code = 908692332] Future Scheduled 1969 Screening for malignant [facility] 00:00:00 neoplasm of colon Medical Ce nter (procedure) [code = 760935478] Future Scheduled 1969 Screening for malignant [facility] 00:00:00 neoplasm of colon Medical Ce nter (procedure) [code = 503248674] Future Scheduled 1969 Sigmoidoscopy [code [facility]oscopy] Medical Cente r Future Scheduled 1969 CT Colonography (combo) [facility] 00:00:00 [code = CT Colonography [facility] (combo)] Future Scheduled 1969 Screening for malignant [facility] 00:00:00 neoplasm of colon Medical Ce nter (procedure) [code = 475363391] Future Scheduled 1969 Screening for malignant [facility] 00:00:00 neoplasm of colon Medical Ce nter (procedure) [code = 535215866] Future Scheduled 1969 Screening for malignant [facility] 00:00:00 neoplasm of colon Medical Ce nter (procedure) [code = 410405188] Future Scheduled 1969 Screening for malignant [facility] 00:00:00 neoplasm of colon Medical Ce nter (procedure) [code = 426034939] Future Scheduled 1969 Sigmoidoscopy [code [facility]oscopy] Medical Cente r Encounters Start End Encounter Admission Attending Care Care Encounter Source Date/Time Date/Time Type Type Clinicians Facility Department ID 2023-04-18 2023-04-18 Outpatient SANDRA MCCALL [id number] Sandra 11:45:00 11:45:00 GERARDO Seybol d 2023-04-12 2023-04-12 Outpatient SANDRA MCCALL [id number] Sandra 00:00:00 00:00:00 GERARDO Seybol d 2023-04-08 2023-04-08 Outpatient SANDRA MCCALL [id number] Sandra 08:30:00 08:30:00 GERARDO Seybol d 2023-02-15 2023-02-15 Outpatient SANDRA SWANN [id number] Sandra 00:00:00 00:00:00 MARY Seybol d 2023-02-11 2023-02-11 Outpatient SANDRA SWANN [id number] Sandra 00:00:00 00:00:00 MARY Seybol d 2023-01-21 2023-01-21 Outpatient SANDRA SWANN [id number] Sandra 00:00:00 00:00:00 MARY Seybol d 2023-01-13 2023-01-13 Outpatient SANDRA SWANN [id number] Sandra 00:00:00 00:00:00 MARY Seybol d 2023-01-05 2023-01-05 Outpatient SANDRA SWANN [id number] Sandra 00:00:00 00:00:00 MARY Seybol d 2023-01-04 2023-01-04 Outpatient HUNDL, SANDRA MCDANIELS [id number] Sandra 00:00:00 00:00:00 MARY Seybol d 2022-12-27 2022-12-27 Outpatient HUNDL, SANDAR MCDANIELS [id number] Sandra 00:00:00 00:00:00 MARY Seybol d 2022-12-20 2022-12-20 Outpatient HUNDL, SANDRA MCDANIELS [id number] Sandra 00:00:00 00:00:00 MARY Seybol d 2022-12-13 2022-12-13 Outpatient HUNDL, SANDRA MCDANIELS [id number] Sandra 16:30:00 16:30:00 MARY Seybol d 2022-12-13 2022-12-13 Outpatient JANE, SANDRA MCDANIELS [id number] Sandra 08:40:00 08:40:00 ABBEY Seybol d 2022-12-13 2022-12-13 Outpatient SANDRA MCDANIELS [id number] Sandra 08:25:00 08:25:00 Seybol d 2022-12-13 2022-12-13 Outpatient SANDRA MCDANIELS [id number] Sandra 08:15:00 08:15:00 Seybol d 2022-12-13 2022-12-13 Outpatient JANE, SANDRA MCDANIELS [id number] Sandra 00:00:00 00:00:00 ABBEY Seybol d 2022-12-10 2022-12-10 Outpatient JANE, SANDRA MCDANIELS [id number] Sandra 00:00:00 00:00:00 ABBEY Seybol d 2022-12-07 2022-12-07 Outpatient HUNDL, SANDRA MCDANIELS [id number] Sandra 00:00:00 00:00:00 MARY Seybol d 2022-12-06 2022-12-06 Outpatient PREZAS, SANDRA MCDANIELS [id number] Sandra 00:00:00 00:00:00 GERARDO Seybol d 2022-11-26 2022-11-26 Outpatient RAMESH AYALA [id number] Sandra 13:30:00 13:30:00 Seybol d 2022-11-26 2022-11-26 Outpatient LAB90 SANDRA MCDANIELS [id number] Sandra 12:55:00 12:55:00 Seybol d 2022-11-25 2022-11-25 Outpatient HUNDL, SANDRA MCDANIELS [id number] Sandra 00:00:00 00:00:00 MARY Seybol d 2022-11-23 2022-11-23 Outpatient HUNDL, SANDRA MCDANIELS [id number] Sandra 13:30:00 13:30:00 MARY Seybol d 2022-11-23 2022-11-23 Outpatient HUNDL, SANDRA MCDANIELS [id number] Sandra 13:30:00 13:30:00 MARY Seybol d 2022-11-17 2022-11-17 Outpatient ONWUCHURUBA SANDRA MCDANIELS [id number] Sandra 10:30:00 10:30:00 , SABRINA Thompson bold 2022-11-14 2022-11-14 Outpatient HUNDL, SANDRA MCDANIELS [id number] Sandra 00:00:00 00:00:00 MARY Seybol d 2022-11-09 2022-11-09 Outpatient HUNDL, SANDRA MCDANIELS [id number] Sandra 00:00:00 00:00:00 MARY Seybol d 2022-11-08 2022-11-08 Outpatient HUNDL, SANDRA MCDANIELS [id number] Sandra 10:30:00 10:30:00 MARY Seybol d 2022-10-22 2022-10-22 Outpatient HUNDL, SANDRA MCDANIELS [id number] Sandra 00:00:00 00:00:00 MARY Seybol d 2022-10-21 2022-10-21 Outpatient PROVIDER, SANDRA MCDANIELS [id number] Sandra 20:00:00 20:00:00 VIDEOVISITN Se ybold OW 2022-10-17 2022-10-17 Outpatient HUNDL, SANDRA MCDANIELS [id number] Sandra 00:00:00 00:00:00 MARY Seybol d 2022-10-12 2022-10-12 Outpatient LAB90 SANDRA MCDANIELS [id number] Sandra 09:15:00 09:15:00 Seybol d 2022-10-12 2022-10-12 Outpatient SHREE SANDRA MCDANIELS [id number] Sandra 08:30:00 08:30:00 MARY Seybol d 2022-09-28 2022-09-28 Outpatient SANDRA SWANN [id number] Sandra 08:00:00 08:00:00 MARY Seybol d 2022-01-01 2022-01-01 [facility] [id number] Sandra 14:30:00 15:08:38 ne [place] marj [id number] Se evgeny [place] [id number] 2021-12-28 2021-12-28 Outpatient LAB90 SANDRA MCDANIELS [id number] Sandra 13:45:00 13:45:00 Seybol d 2021-12-22 2021-12-22 Outpatient HILDAOMKAR MCDANIELS [id number] Sandra 00:00:00 00:00:00 MARJ Seybol genevieve [place] 2021-12-21 2021-12-21 Outpatient SHELBI MCDANIELS [id number] Sandra 00:00:00 00:00:00 MD JOHANA Seybol genevieve 2021-11-25 2021-11-25 Outpatient HILDAOMKAR MCDANIELS [id number] Sandra 14:00:00 14:00:00 MARJ Seybol d CORRIE 2021-11-24 2021-11-24 Outpatient SANDRA ERNANDEZ [id number] Sandra 09:00:00 09:00:00 MAGALIS Seybol d 2021-11-19 2021-11-19 Outpatient SANDRA HUBBARD [id number] Sandra 00:00:00 00:00:00 TEETEE Seybol d 2021-11-17 2021-11-17 Outpatient SHELBI MCDANIELS [id number] Sandra 00:00:00 00:00:00 MD JOHANA Seybol genevieve 2021-11-16 2021-11-16 Outpatient SANDRA HUBBARD [id number] Sandra 00:00:00 00:00:00 TEETEE Seybol d 2021-11-11 2021-11-11 Outpatient SANDRA HUBBARD SANDRA [id number] Sandra 08:00:00 08:00:00 TEETEE Seybol d 2021-11-11 2021-11-11 Outpatient STEVIE SANDRA MCDANIELS [id number] Sandra 00:00:00 00:00:00 TEETEE Seybol d 2021-11-04 2021-11-04 Outpatient SANDRA HUBBARD SANDRA [id number] Sandra 00:00:00 00:00:00 TEETEE Seybol d 2021-11-03 2021-11-03 Outpatient LAB39 SANDRA MCDANIELS [id number] Sandra 15:15:00 15:15:00 Seybol d 2021-11-03 2021-11-03 Office Anabelle [facility] [id number] Sandra 13:30:00 14:30:00 [id number] Se ybjarod [place] [id number] 2021-10-28 2021-10-28 Outpatient RIVKARobles SANDRA MCDANIELS [id number] Sandra 00:00:00 00:00:00 MARY Seybol d 2021-10-26 2021-10-26 Outpatient RIVKARoblesSANDRA [id number] Sandra 00:00:00 00:00:00 MARY Seybol d 2021-10-26 2021-10-26 Outpatient HILDA-OMKAR MCDANIELS [id number] Sandra 00:00:00 00:00:00 MARJ, Seybol d CORRIE 2021-10-20 2021-10-20 Outpatient [id number] SANDRA MCDANIELS [id number] Sandra 10:15:00 10:15:00 Seybol d 2021-10-20 2021-10-20 Outpatient LAB90 SANDRA MCDANIELS [id number] Sandra 10:10:00 10:10:00 Seybol d 2021-10-20 2021-10-20 Office Ramesh Swann [id number] Sandra 09:00:00 09:30:00 Visit Mary Elias [id number] evgeny [id number] 2021-09-18 2021-09-25 Inpatient UR [facility] 20 [id number] [facility] 16:39:00 18:24:00 MRINALINI y 2021-05-18 2021-05-18 Outpatient AKINSANDRA FLOYD [id number] Sandra 10:15:00 10:15:00 MAGALIS Seybol d 2021-05-15 2021-05-15 Outpatient AKINSANDRA FLOYD [id number] Sandra 00:00:00 00:00:00 MAGALIS Seybol d 2021-04-28 2021-04-28 Outpatient AKINSANDRA FLOYD [id number] Sandra 00:00:00 00:00:00 MAGALIS Seybol d 2021-04-27 2021-04-27 Outpatient AKINSANDRA FLOYD [id number] Sandra 00:00:00 00:00:00 MAGALIS Seybol d 2021-04-22 2021-04-22 Outpatient AKINSANDRA FLOYD [id number] Sandra 00:00:00 00:00:00 MAGALIS Seybol d 2021-04-20 2021-04-20 Outpatient AKINSANDRA FLOYD [id number] Sandra 00:00:00 00:00:00 MAGALIS Seybol d 2021-04-17 2021-04-17 Outpatient AKINSANDRA FLOYD [id number] Sandra 00:00:00 00:00:00 MAGALIS Seybol d 2021-04-17 2021-04-17 Outpatient MARITZA LEWIS [id number] Sandra 00:00:00 00:00:00 Seybol d 2021-04-16 2021-04-16 Outpatient AKINSANDRA FLOYD [id number] Sandra 08:30:00 08:30:00 MAGALIS Seybol d 2021-04-16 2021-04-16 Outpatient [id number] SANDRA MCDANIELS [id number] Sandra 08:20:00 08:20:00 Seybol d 2021-04-06 2021-04-06 Outpatient SANDRA FERMIN [id number] Sandra 00:00:00 00:00:00 ROASLBA Seybol d 2021-04-04 2021-04-04 Outpatient SANDRA FERMIN [id number] Sandra 00:00:00 00:00:00 ROSALBA Seybol d 2020-12-02 2020[facility]12-02 [id number] [facility] 00:00:00 00:00:00 Outreach Lars PRIMARY 350.1.13.10 i [facility] [place].2.[place] [phone] Ne kylah [address] [place] [address] 2020-11-10 2020-11-10 [facility] [id number] Univers 09:45:00 09:45:00 [facility] 2020-10-31 2020-10-31 [facility] 1.2.840.114 [id number] Univers 00:00:00 00:00:00 Armin SPECIALTY 350.1.13.10 [place] [phone] Ne selinashanti DONOHUE [address] [place] [address] 2020-10-20 2020-10-20 Office [facility] 1.2.840.114 [id number] Univers 10:05:41 13:50:58 Visit Armin SPECIALTY 350.1.13.10 ity of CARE 4.2.7.2.686 [facility] [phone] Ne selinashanti DONOHUE [address] [place] [address] 2020-10-20 2020-10-20 Outpatient Shaun KELLER [facility] [id number] Univers 09:45:00 09:45:00 KAYE ity [facility] 2020-10-13 2020-10-13 Outpatient R JEISON [facility] [id number] Univers 10:30:00 10:30:00 ARMIN ity [facility] 2020-09-29 2020-09-29 Hospital [facility] 1.2.840.114 [id number] Univers 10:03:46 23:59:00 Encounter Kaye PRIMARY 350.1.13.10 [place] of [place] [phone] Ne dical [address] 2020-09-29 2020-09-29 [facility] 1.2.186.020 [id number] Univers 09:27:17 10:36:22 Visit Kaye PRIMARY 350.1.13.10 it[place] of [place] [id number] Ne dical [address] 2020-09-29 2020-09-29 [facility] [id number] Univers 09:15:00 09:15:00 KAYE ity of [facility] 2020-08-11 2020-08-[address] [facility] UNIVERSIT 1.2.840.114 [id number] Univers 14:45:44 15:00:44 Visit Grace Teresa HEALTH 350.1.13.10 it[place] of CL[place] [phone] [facility] [address] 2020-08-11 2020-08-11 Office Nabila Collins UNIVERSIT 1.2.840.114 [id number] Univers 13:08:19 14:38:25 Visit [facility] 350.1.13.10 ity of CLINICS [place] [phone] [facility] [address] 2020-08-11 2020-08-11 Outpatient R [facility] [id number] Univers 13:00:00 13:00:00 ity of [facility] 2020-08-11 2020-08-11 Orders Doctor LEONARDO 1.2.840.114 [id number] Univers 00:00:00 00:00:00 Only Unassigned, FARHAN 350.1.13.10 ity of [facility] 4.2.7.2.686 [place] as [phone] Medi nancy 009 Branch Results Test Description Test Time Test Comments Results Result Comments Source POCT-GLUCOSE METER 2021-09-25 11:26:37 Test Item Value Reference Range Interpretation Comme nts POC-GLUCOSE METER (BEAKER) 160 mg/dL 70-110 H : TESTED AT [facility] [address] ANJEL (test code = 1538) [place]ONAY [place]keon, [address]: Form Tamper Operator/Techni lucy ID = [id number] for Tian Fletcher (CELLAVISION MANUAL DIFF)2021-09-25 08:29:01 [...] 965) ARTIFACT (CELLAVISION)(BEAKER) Present (test code = 3862) PLATELET CONCENTRATION Adequate (CELLAVISION)(BEAKER) (test code = 3438) Form Tamper Operator ID - claudia hugginsMiguelshaun comments: Slide comments:CBC W/PLT COUNT & AUTO [id number] 08:29:00 Test Item Value Reference Range Interpretation [...] 0-0 (BEAKER) (test code = 413) POCT-GLUCOSE [id number] 08:03:44 Test Item Value Reference Range Interpretation Comments POC-GLUCOSE METER 155 mg/dL 70-110 H : TESTED A T [facility] 6720 (BEAKER) (test code = [place], 1538) 267[address]: Form Tamper Operator/Techni lucy ID = [id number] for Marcelino Cabrera BASIC METABOLIC [id number] 06:46:41 Test Item Value Reference Range Interpretation [...] S NOT APPLICABLE FOR DIALYSIS PATIEN TS. Form Tamper Operator ID - ESTRADA MPOCT-GLUCOSE [id number] 17:47:29 Test Item Value Reference Range Interpretation Comments POC-GLUCOSE METER 160 mg/dL 70-110 H : TESTED A T [facility] 6720 (BEAKER) (test code = [facility], 1538) 23482: Form Tamper Operator/Techni lucy ID = [id number] for Bl ackwell, Marcelino POCT-GLUCOSE [id number] 11:07:55 Test Item Value Reference Range Interpretation Comments POC-GLUCOSE METER 185 mg/dL 70-110 H : TESTED A T [facility] 6720 (BEAKER) (test code = [facility], 1538) 81911: Form Tamper Operator/Techni lucy ID = [id number] for Pe Alisa galan POCT-GLUCOSE [id number] 07:59:08 Test Item Value Reference Range Interpretation Comments POC-GLUCOSE METER 202 mg/dL 70-110 H : TESTED A T [facility] 67[address] (BEAKER) (test code = [facility], 1538) 37841: Form Tamper Operator/Techni lucy ID = [id number] for Bl ackwell, Marcelino (CELLAVISION MANUAL DIFF)2021-09-24 07:06:11 Test Item [...] CONCENTRATION Adequate (CELLAVISION)(BEAKER) (test code = 3438) Form Tamper Operator ID - Emily Torres comments: Slide comments:CBC W/PLT COUNT & AUTO [id number] 07:06:05 Test Item Value Reference Range Interpretation [...] (BEAKER) (test code = 413) BASIC METABOLIC [id number] 06:51:21 Test Item Value Reference Range Interpretation [...] S NOT APPLICABLE FOR DIALYSIS PATIEN TS. Form Tamper Operator ID - DEVIKA WBLOOD [id number] 06:01:11 Test Item Value Reference Range Interpretation Comments CULTURE (BEAKER) (test No growth in 5 days code = 1095) BLOOD [id number] 01:01:07 Test Item Value Reference Range Interpretation Comments CULTURE (BEAKER) (test No growth in 5 days code = 1095) POCT-GLUCOSE [id number] 21:28:29 Test Item Value Reference Range Interpretation Comments POC-GLUCOSE METER 187 mg/dL 70-110 H : TESTED A T [facility] 6720 (BEAKER) (test code = [facility], 1538) 91336: Form Tamper Operator/Techni lucy ID = [id number] for Steph Kumar BLOOD [id number] 20:00:49 Test Item Value Reference Range Interpretation Comments CULTURE (BEAKER) (test No growth in 5 days code = 1095) The specimen volume collected for this blood culture was below the optimum (10 mL per bottle or 20 mL total). Use of lower volumes may adversely affect recovery and/or detection times of some organisms.POCT-GLUCOSE [id number] 17:25:26 Test Item Value Reference Range Interpretation Comments POC-GLUCOSE METER 191 mg/dL 70-110 H : TESTED A T [facility] 6720 (BEAKER) (test code = [facility], 1538) 21022: Form Tamper Operator/Techni lucy ID = [id number] for An Bina loja POCT-GLUCOSE [id number] 11:29:27 Test Item Value Reference Range Interpretation Comments POC-GLUCOSE METER 209 mg/dL 70-110 H : TESTED A T [facility] 67[address] (BEAKER) (test code = [facility], 1538) 59244: Form Tamper Operator/Techni lucy ID = [id number] for An Bina loja BASIC METABOLIC [id number] 06:30:06 Test Item Value Reference Range Interpretation [...] S NOT APPLICABLE FOR DIALYSIS PATIEN TS. Form Tamper Operator ID - ESTRADA MCBC W/PLT COUNT & AUTO [id number] 05:32:16 Test Item Value Reference Range Interpretation [...] PERCENT (BEAKER) (test code = 2801) POCT-GLUCOSE [id number] 21:11:15 Test Item Value Reference Range Interpretation Comments POC-GLUCOSE METER 179 mg/dL 70-110 H : TESTED A T [facility] 6720 (BEAKER) (test code = [facility], 1538) 17232: Form Tamper Operator/Techni lucy ID = [id number] for Josephine Roberto POCT-GLUCOSE [id number] 17:05:43 Test Item Value Reference Range Interpretation Comments POC-GLUCOSE METER 152 mg/dL 70-110 H : TESTED A T [facility] 6720 (BEAKER) (test code = [facility], [facility]8) 37043: Form Tamper Operator/Techni lucy ID = [id number] for ALFREDA DELEON POCT-GLUCOSE [id number] 15:29:50 Test Item Value Reference Range Interpretation Comments POC-GLUCOSE METER 177 mg/dL 70-110 H : TESTED A T [facility] [address] (BEAKER) (test code = [facility], 1538) 48879: Form Tamper Operator/Techni lucy ID = [id number] for RO DGERS, JAMECA POCT-GLUCOSE [id number] 08:25:18 Test Item Value Reference Range Interpretation Comments POC-GLUCOSE METER 174 mg/dL 70-110 H : TESTED A T [facility] 67[address] (BEAKER) (test code = [facility], 1538) 38502: Form Tamper Operator/Techni lucy ID = [id number] for RO DGERS, JAMECA (CELLAVISION MANUAL DIFF)2021-09-22 [...] CONCENTRATION Adequate (CELLAVISION)(BEAKER) (test code = 3438) Form Tamper Operator ID - claudia Hoyt comments: Slide comments:CBC W/PLT COUNT & AUTO [id number] 07:24:32 Test Item Value Reference Range Interpretation [...] (BEAKER) (test code = 413) BASIC METABOLIC [id number] 05:28:03 Test Item Value Reference Range Interpretation [...] S NOT APPLICABLE FOR DIALYSIS PATIEN TS. Form Tamper Operator ID - ESTRADA MPOCT-GLUCOSE [id number] 21:57:41 Test Item Value Reference Range Interpretation Comments POC-GLUCOSE METER 192 mg/dL 70-110 H : TESTED Kathie Blanco [facility] 6720 (BEAKER) (test code = [address], 1538) 04251: Form Tamper Operator/Techni lucy ID = [id number] for Josephine Roberto POCT-GLUCOSE [id number] 17:57:30 Test Item Value Reference Range Interpretation Comments POC-GLUCOSE METER 183 mg/dL 70-110 H : TESTED A T [facility] 6720 (BEAKER) (test code = [address] [place], 1538) 94415: Form Tamper Operator/Techni lucy ID = [id number] for JOSE BASSETT HEPATIC FUNCTION [id number] 16:01:45 Test Item Value Reference Range Interpretation [...] (test code = 11 U/L 6-55 347) Form Tamper Operator ID - ESTRADA MOperator ID - ESTRADA [id number] 15:56:05 Test Item Value Reference Range Interpretation Comments PHOSPHORUS (BEAKER) (test code = 3.5 mg/dL 2.3-4.7 604) Form Tamper Operator ID - ESTRADA MC-REACTIVE [id number] 15:56:05 Test Item Value Reference Range Interpretation Comments C-REACTIVE PROTEIN (BEAKER) (test 15.79 mg/dL 0.00-0.50 H code = 676) Form Tamper Operator ID - ESTRADA MBASIC METABOLIC [id number] 15:56:04 Test Item Value Reference Range Interpretation [...] S NOT APPLICABLE FOR DIALYSIS PATIEN TS. Form Tamper Operator ID - ESTRADA [id number] 15:56:04 Test Item Value Reference Range Interpretation Comments MAGNESIUM (BEAKER) (test code = 1.7 mg/dL 1.6-2.6 627) Form Tamper Operator ID - ESTRADA MCBC W/PLT COUNT & AUTO [id number] 14:57:10 Test Item Value Reference Range Interpretation [...] PERCENT (BEAKER) (test code = 2801) POCT-GLUCOSE [id number] 12:33:22 Test Item Value Reference Range Interpretation Comments POC-GLUCOSE METER 162 mg/dL 70-110 H : TESTED A T [facility] 6720 (BEAKER) (test code = [facility], 1538) 63748: Form Tamper Operator/Techni lucy ID = [id number] for RO DGERS, JAMECA POCT-GLUCOSE [id number] 08:13:06 Test Item Value Reference Range Interpretation Comments POC-GLUCOSE METER 180 mg/dL 70-110 H : TESTED A T [facility] 6720 (BEAKER) (test code = [facility], 1538) 71129: Form Tamper Operator/Techni lucy ID = [id number] for RO DGERS, JAMECA POCT-GLUCOSE [id number] 20:39:42 Test Item Value Reference Range Interpretation Comments POC-GLUCOSE METER 175 mg/dL 70-110 H : TESTED A T [facility] 6720 (BEAKER) (test code = [facility], 1538) 02070: Form Tamper Operator/Techni lucy ID = [id number] for Steph Kumar POCT-GLUCOSE [id number] 17:10:08 Test Item Value Reference Range Interpretation Comments POC-GLUCOSE METER 188 mg/dL 70-110 H : TESTED A T [facility] 6720 (BEAKER) (test code = [facility], 1538) 79022: Form Tamper Operator/Techni lucy ID = [id number] for OJ LEONOR, ARIAN POCT-GLUCOSE [id number] 11:49:26 Test Item Value Reference Range Interpretation Comments POC-GLUCOSE METER 180 mg/dL 70-110 H : TESTED A T [facility] [address] (BEAKER) (test code = [facility], 1538) 80913: Form Tamper Operator/Techni lucy ID = [id number] for OJ LEONOR, ARIAN POCT-GLUCOSE [id number] 17:09:11 Test Item Value Reference Range Interpretation Comments POC-GLUCOSE METER 174 mg/dL 70-110 H : TESTED A T [facility] 6720 (BEAKER) (test code = [facility], 1538) 44996: Form Tamper Operator/Techni lucy ID = [id number] for An deramadeo, Bina POCT-GLUCOSE [id number] 11:42:24 Test Item Value Reference Range Interpretation Comments POC-GLUCOSE METER 175 mg/dL 70-110 H : TESTED A T [facility] 6720 (BEAKER) (test code = [facility], 1538) 19477: Form Tamper Operator/Techni lucy ID = [id number] for An derson, Bina MR, SPINE, LUMBAR, [id number] 10:43:00Unlisted Reason for Exam - Click Yes and Enter Reason Below->No [facility] : 1970 Sex: MFINAL REPORT [...] narrowing at this level. Signed: S[facility]hartha Pineda [facility] Verified Date/Time: 09/19/2021 10:43:41 POCT-GLUCOSE [id number] 07:25:08 Test Item Value Reference Range Interpretation Comments POC-GLUCOSE METER 181 mg/dL 70-110 H : [facility] (BE[facility]ER[facility] (test code = [place], 1538) 32683: Form Tamper Operator/Techni lucy ID = [id number] for Bina Figueroa C-REACTIVE [id number] 05:36:13 Test Item Value Reference Range Interpretation Comments C-REACTIVE PROTEIN (BEAKER) (test 15.70 mg/dL 0.00-0.50 H code = 676) Form Tamper Operator ID - ESTRADA MCOMPREHENSIVE METABOLIC [id number] 05:36:12 Test Item Value Reference Range Interpretation [...] S NOT APPLICABLE FOR DIALYSIS PATIEN TS. Form Tamper Operator ID - ESTRADA MSARS-COV2/RT-PCR ([facility])2021-09-19 01:23:23 Test Item Value Reference Range Interpretation Comments SARS-COV2/RT-PCR Negative Negative The SARS-Co V-2 target (test code = nucleic acids a re not [id number]) detected in thi s specimen. Negative result [...] revoked sooner. Fact Sheet for Healthcare Providers: https://www.[employer] m/Documents/Xpert%20Xpress%20SARS%20CoV-2/Fact%20Sheets/147-3802%72VLBZ-OXG-7%20 HEALTHCARE%20PROVIDERS%20FACT%20SHEET.pdf Fact Sheet for Healthcare Patients: https://www.[employer]/Documents/Xpert%20Xp ress%20SARS%20CoV-2/Fact%20Sheets/3023801%49UQOC-UGX-5%20PATIENT%20FACT%20SHEET .pdfPOCT-GLUCOSE [id number] 22:10:31 Test Item Value Reference Range Interpretation Comments POC-GLUCOSE METER 176 mg/dL 70-110 H : TESTED Kathie T [facility] 6720 (BEAKER) (test code = [place], 1538) 29585: Form Tamper Operator/Techni lucy ID = [id number] for Steph Kumar [id number] 19:54:47 Test Item Value Reference Range Interpretation Comments PHOSPHORUS (BEAKER) (test code = 2.8 mg/dL 2.3-4.7 604) Form Tamper Operator ID - DBBASIC METABOLIC [id number] 19:54:46 Test Item Value Reference Range Interpretation [...] S NOT APPLICABLE FOR DIALYSIS PATIEN TS. Form Tamper Operator ID - [id number] 19:54:46 Test Item Value Reference Range Interpretation Comments MAGNESIUM (BEAKER) (test code = 1.7 mg/dL 1.6-2.6 627) Form Tamper Operator ID - [id number] 19:51:43 Test Item Value Reference Range Interpretation Comments PARTIAL THROMBOPLASTIN TIME 38.0 seconds 22.5-36.0 H (BEAKER) (test code = 760) [id number] 19:51:43 Test Item Value Reference Range Interpretation [...] 2.5-3.5 for patients with mechanical heart valves.PROTHROMBIN TIME/[id number] 19:51:01 Test Item Value Reference Range Interpretation Comments PROTIME (BEAKER) 17.3 seconds 11.9-14.2 H (test code = 759) INR (BEAKER) (test 1.44 See_Comment [Automat ed message] code = 370) The system [employer] h generated this result transmitted ref erence range: <=5.90. The reference range was not used to int erpret this result as normal/abnormal . RECOMMENDED COUMADIN/WARFARIN INR THERAPY RANGESSTANDARD DOSE: 2.0 - 3.0 Includes: PROPHYLAXIS for venous thrombosis, systemic embolization; TREATMENT for venous thrombosis and/or pulmonary embolus.HIGH RISK: Target INR is 2.5-3.5 for patients with mechanical heart valves.CBC W/PLT COUNT & AUTO [id number] 19:37:43 Test Item Value Reference Range Interpretation [...] PERCENT (BEAKER) (test code = 2801) POCT-GLUCOSE [id number] 17:15:12 Test Item Value Reference Range Interpretation Comments POC-GLUCOSE METER 147 mg/dL 70-110 H : TESTED Kathie Blanco [facility] 6720 (BEAKER) (test code = [place], 1538) 91288: Form Tamper Operator/Techni lucy ID = [id number] for An Bina loja XR FOOT 3+ VW [id number] 20:59:26 1. ?Neuropathic right mid foot. RL: [...] fifth phalanx.IMPRESSION1. Neuropathic right mid foot.RL: [facility]
[2023-04-16 11:36] VITALS: BMI 31.6
[2023-04-16] MEDS ORDERED: GLUCAGON 1 MG/VIAL IM PRN (11:51)
[2023-04-16] MEDS ORDERED: D50W 25 GM/50 ML SYRINGE IV PRN (11:51)
[2023-04-16] MEDS ORDERED: D10W 125 ML IV PRN (11:54)
[2023-04-16] MEDS: MIDODRINE HCL 5 MG TABLET PO SCH ×2 (14:01→20:16)
[2023-04-16] MEDS ORDERED: ACETAMINOPHEN 500 MG TAB PO PRN (16:28)
[2023-04-16] MEDS: INSULIN -REGULAR HUMAN 50 UNIT/0.5 ML ML SQ SCH ×2 (16:30→20:16)
[2023-04-16] MEDS: CEFAZOLIN SODIUM 2 GM in NA CHLORIDE 0.9% 100 ML IVPB SCH (17:12)
[2023-04-16] MEDS: PANTOPRAZOLE 40MG TABLET PO SCH (17:13)
[2023-04-16] MEDS ORDERED: NA CHLORIDE 0.9% 250 ML ONE (17:18)
[2023-04-16] MEDS: FERROUS SULFATE 325 MG TAB PO SCH (20:16)
[2023-04-16] MEDS: APIXABAN 5 MG TABLET PO SCH (20:16)
[2023-04-16] MEDS: INSULIN GLARGINE 100 UNIT/ML SQ SCH (20:17)
[2023-04-16] MEDS: AMINO ACIDS/PROTEIN HYDROLYS 30 ML LIQUID.PKT PO SCH (20:18)
[2023-04-16] MEDS: TRAMADOL HCL 50 MG TAB PO PRN (20:44)
--- NOTE | 2023-04-16 23:18 | HP ---
Date of Admission: 04/16/2023 Time Of Service: 6 p.m. Chief Complaint: "My right leg is cut off and I can't walk." History Of Present Illness: Mr. Layne is a 52-year-old patient with multiple medical problems including chronic osteomyelitis of the right foot, which was treated conservatively by wound [facility] and the Wound Care Service, but he did not have successful treatment. On 04/07, he became confused, lethargic and was unstable, suffering a fall. He has a fibular puncture through the pre-existing right lateral ankle wound resulting in disarticulation of the foot noted by easy rotation beyond 180 degrees. There was tunneling and tracking from where the bone punctured the wound noted with ongoing yellowish drainage. The Renal Service, Infectious Disease Service and Surgery were consulted. They identified significant destructive changes in the ankle and foot, ostial thickening. There was moderate flatfoot deformity and small calcaneal spurs. Findings are consistent with Charcot joint. Further, there was evidence of sepsis as noted by procalcitonin elevated to 1.6, white blood cell count of 14.8, lactic acid elevated to 4. Blood cultures were positive for gram-positive cocci. Chest x- ray showed mild pulmonary edema. Blood work, hyponatremia with iron deficiency anemia. Also, acute renal insufficiency and hyperglycemia. Urinalysis showed hematuria, proteinuria, pyuria. Furthermore, urine chemistries were consistent with hyperaldosteronism. The patient received IV fluids, vancomycin, Zosyn, cefazolin from 04/07 to 04/11, which subsequently scheduled from 04/11 to 04/24. He did have low blood pressures and midodrine was given to help support, mean arterial pressure greater than 70 to up to 80. Magnesium levels were low and were monitored and replaced. Daily weights and I's and O's also monitored. His blood sugars and insulin sliding scale were followed. Patient also treated for alcohol withdrawal. Following surgery, right cirda-[id number]-[id number] amputation on 04/12, the patient was in fair condition and his general surgeon ordered physical therapy. He was evaluated and determined to have significant need for ability to transfer from bed to chair, to mobilize and to perform activities of daily living. Furthermore, his medical condition requiring addressing severe anemia, elevated blood sugars, low blood pressure, acute renal insufficiency and potential pneumonia along with managing the wound, determined that the patient required daily physician evaluation, detention and aggressive physical therapy. Therefore, he was determined to be an appropriate candidate for inpatient rehabilitation and physical therapy. If need be, ID service will be consulted, Renal Service, Pulmonary Service and hospitalist service. Past Medical History: Diabetes mellitus, hypertension, chronic right foot wound with amputation of the right toe in 2017, femoral stent, obesity, Charcot foot, peripheral vascular disease, alcohol use, anemia, hyponatremia. Allergies: NO KNOWN DRUG ALLERGIES. Imaging: As noted on 04/07, mid interstitial pulmonary edema. Heart is moderately enlarged. No displaced fractures. Right ankle x-ray on 04/07, significant destructive changes seen involving the ankle and foot, ostial thickening present, moderate flatfoot deformities, small calcaneal spur compatible with Charcot joint. Note, while hospitalized, patient was seen by Infectious Disease, Dr. Conrad, General Surgery, Dr. Hays and renal service, Dr. Laboy. Family History: Cancer in father. Social History: Regular alcohol and caffeinated beverage use. Denies tobacco use. Current Medications: Tylenol Extra Strength 500 mg every 6 hours, ProSource amino acid supplementation 30 mL twice a day, Eliquis 5 mg twice daily, Cefazolin 2 g every 8 hours to receive 21 bags started on 04/16, ferrous sulfate 325 mg twice daily, Semglee insulin 10 units at bedtime, midodrine 5 mg 3 times daily, nicotine patch 21 mg daily, Protonix 40 mg twice daily, thiamine 100 mg daily, tramadol 50 mg daily, Senokot-S 2 at night. Review of Systems: Mr. Figueroa is resting comfortably, he is in no acute distress. He reports no fevers, chills. No nausea, vomiting. No myalgias. He has mild phantom limb pain in the right lower extremity, but not disturbing. No rash. No active genitourinary issues or gastrointestinal issues other than mentioned. [place] bag will be removed in the morning. His pulmonary status is good air movement. Laboratory Studies: White blood cell count 7.0, hemoglobin 7.4, hematocrit 23.1. Note on 04/10, hemoglobin was 7.6, and then 7.4 on the , platelets 309. INR 1.75. Sodium 139, potassium 3.7, chloride 111, carbon dioxide 29, BUN 15, creatinine 1.12, glucose ranged from 136-176, calcium 8.0, albumin 1.9. COVID test on 03/28/2023 is negative. Physical Examination: Vital Signs: Blood pressure 153/83, pulse 77, respiratory rate 17, temperature 97.1, oxygen saturation 98%. General: Mr. Figueroa is resting comfortably. He is in no significant distress. HEENT: He is normocephalic, atraumatic. Sclerae anicteric. Oropharynx moist. Neck: Supple. Chest: Clear. Heart: Regular. Extremities: Left lower extremity, no significant edema, cyanosis, or clubbing. Right lower extremity is bandaged and with good hemostasis following right [id number] amputation. Current Functional Status: He is independent for eating, oral hygiene and toileting; standby assistance, showering, bathing; standby assistance, lower body dressing, standby assistance rolling left to right and right to left, contact guard assistance, sitting to bed, contact guard assistance, maximum assistance to go from bed to chair, to toilet to shower. Currently, not yet ambulating. He mobilized a wheelchair 110 feet with contact guard assistance. Rehabilitation And Medical Assessment And Plan: His rehabilitation impairment category is 10, amputation lower extremity. His impairment group code is 05.4, unilateral lower limb [id number] amputation. Etiologic Diagnosis: Right lower extremity osteomyelitis. Comorbids: Renal injury, anemia, diabetes mellitus, hypertension, dyslipidemia, hyponatremia, pulmonary edema, sepsis, congestive heart failure, Charcot foot, acute tubular necrosis, bacteremia. Plan: Mr. Figueroa will have 3 hours a day of physical and occupational therapy 5 of 7 days per week. For pain, he will have tramadol and Tylenol. For his malnutrition, amino acid, ProSource 30 mL twice daily. For stroke and DVT risk reduction, Eliquis 5 mg twice daily. We will continue cefazolin 2 g every 8 hours for 21 bags, ferrous sulfate for anemia 325 mg twice daily, Semglee insulin at bedtime for diabetes, nicotine patch 21 mg daily for tobacco dependency, thiamine 100 mg daily for alcohol dependency, Protonix 40 mg daily for GE reflux. Impact Of Comorbids: 1. Mr. Figueroa has significant comorbidities including ongoing sepsis for which he is receiving IV antibiotics, is scheduled to be worked around. He is a knee amputee and has a significant risk of falling, especially at night if he awakens and attempts to get to the bathroom, so bed rails to be up and he will be close to the nursing station. 2. He has multiple organ systems that require addressing regularly including the renal system, pulmonary system, cardiovascular system, and those are monitored carefully. Rehab Specific Plan: 1. Mr. Figueroa will have physical and occupational therapy for 3 hours daily for 5 of 7 days, will improve the ability to transfer from bed, to chair, to wheelchair, to toilet and to shower as well as performing showering and toileting. 2. He will ambulate with a rolling walker using his left leg and arms, a minimum of 500 feet. 3. He will negotiate steps at least 5 steps with his 1 leg and arms. 4. Mobilize a wheelchair 250 feet with modified independence. 5. He will have detention. 6. He will have physician evaluation ongoing to address all medical issues identified. Mr. Figueroa has a good understanding of the process of admission to the inpatient rehabilitation unit and he has a potential to make significant improvement as he receives physical and occupational therapy. Additionally, if need be, services from Wound Care, Renal Service, Cardiovascular Service, ID Service and the Hospitalist Service will be consulted. Given his complex medical condition and risk of further complications, rehabilitation cannot be safely or effectively performed at a lower level such as a detention facility. Barriers To Discharge: Currently, he is receiving antibiotics and we will have to continue after discharge, and will have to be arranged. Also, he will work with the prosthetic company to begin the process of the shrinkage that will occur subsequently fitting for a prosthesis. Length Of Stay: About 12 days. Disposition: Home. Prognosis: Good. Rehabilitation Goals: 1. Become independent with upper and lower body dressing and donning and doffing shoes on the left foot. 2. Independent with transfers from bed to toilet, to chair, to shower. 3. Independent with ambulating 250 feet with a rolling walker. 4. Independent with using a wheelchair to mobilize 500 feet. 5. Going up and down steps again with the left leg and his arms with modified independence, at least 5 steps. 6. The above goals were reviewed with Mr. Figueroa and he is in agreement. I acknowledge I personally performed a full physical examination of Mr. Figueroa no later than 24 hours after admission to the inpatient rehabilitation facility and determined he is able to tolerate the above course of treatment at an intensive level for a reasonable period of time. A detailed individualized plan of care for him will be completed by hospital day 4 based on the preadmission screen, history and physical, and therapy evaluations. ANH Voice ID: [id number] [email or web address]
[2023-04-17] MEDS: CEFAZOLIN SODIUM 2 GM in NA CHLORIDE 0.9% 100 ML IVPB SCH ×3 (00:07→16:27)
[2023-04-17] MEDS ORDERED: NA CHLORIDE 0.9% 250 ML ONE (04:11)
[2023-04-17 06:23] LABS: Absolute Lymphocytes (CBC) 1.7 K/uL (0.7-4.9); Hematocrit 25.2 % (39.6-49.0); Lymphocytes % 32.8 % (15.3-44.8); MCV 89.9 fL (80-100); Platelets 270 thou/uL (152-406)
[2023-04-17 06:41] LABS: Magnesium 2.1 mg/dL (1.6-2.4); Prealbumin 15.7 mg/dL (20-40)
[2023-04-17] MEDS: PANTOPRAZOLE 40MG TABLET PO SCH ×2 (07:29→16:27)
[2023-04-17] MEDS: INSULIN -REGULAR HUMAN 50 UNIT/0.5 ML ML SQ SCH ×4 (07:30→20:00)
[2023-04-17] MEDS: MIDODRINE HCL 5 MG TABLET PO SCH ×3 (07:32→20:00)
[2023-04-17] MEDS: THIAMINE HCL 100 MG TABLET PO SCH (07:32)
[2023-04-17] MEDS: APIXABAN 5 MG TABLET PO SCH ×2 (07:32→19:59)
[2023-04-17] MEDS: FERROUS SULFATE 325 MG TAB PO SCH ×2 (07:32→19:59)
[2023-04-17] MEDS: NICOTINE 21 MG/PAT TD SCH (07:33)
[2023-04-17] MEDS: AMINO ACIDS/PROTEIN HYDROLYS 30 ML LIQUID.PKT PO SCH ×3 (07:35→20:00)
[2023-04-17] MEDS: INSULIN GLARGINE 100 UNIT/ML SQ SCH (20:00)
[2023-04-17] MEDS: TRAMADOL HCL 50 MG TAB PO PRN (20:47)
[2023-04-18] MEDS: CEFAZOLIN SODIUM 2 GM in NA CHLORIDE 0.9% 100 ML IVPB SCH ×3 (01:07→17:00)
[2023-04-18] MEDS: INSULIN -REGULAR HUMAN 50 UNIT/0.5 ML ML SQ SCH ×4 (07:30→20:16)
[2023-04-18] MEDS: PANTOPRAZOLE 40MG TABLET PO SCH ×2 (07:47→17:00)
[2023-04-18] MEDS: AMINO ACIDS/PROTEIN HYDROLYS 30 ML LIQUID.PKT PO SCH ×2 (07:48→20:00)
[2023-04-18] MEDS: FERROUS SULFATE 325 MG TAB PO SCH ×2 (07:48→20:15)
[2023-04-18] MEDS: MIDODRINE HCL 5 MG TABLET PO SCH ×2 (07:48→20:15)
[2023-04-18] MEDS: NICOTINE 21 MG/PAT TD SCH (07:48)
[2023-04-18] MEDS: THIAMINE HCL 100 MG TABLET PO SCH (07:48)
[2023-04-18] MEDS: APIXABAN 5 MG TABLET PO SCH ×2 (07:48→20:16)
[2023-04-18] MEDS: TRAMADOL HCL 50 MG TAB PO PRN (08:24)
[2023-04-18] MEDS: GABAPENTIN 300 MG CAP PO SCH (20:15)
[2023-04-18] MEDS: INSULIN GLARGINE 100 UNIT/ML SQ SCH (20:16)
[2023-04-18] MEDS ORDERED: NA CHLORIDE 0.9% 250 ML ONE (23:30)
[2023-04-19] MEDS: CEFAZOLIN SODIUM 2 GM in NA CHLORIDE 0.9% 100 ML IVPB SCH ×3 (00:04→16:49)
--- NOTE | 2023-04-19 00:33 | PN ---
Date of Progress Note: 04/18/2023 Time Of Service: 1:00 p.m. Subjective: Mr. Figueroa reports doing well. He denies phantom limb pain in the right lower extremity amputation. Since there is some nerve pain, which he was previously taking gabapentin for his diabe tic neuropathy, but has been off that and so that may be restarted. Otherwise, he has good bowel mov ements. Sleeping okay. No new complaints. Review of Systems: No fevers and chills and mild phantom limb pain on the right. Mild myalgias as he is exercising. No rash. No pulmonary issues, cardiac issues, dermatological issues, or psychiatric issues. Physical Examination: Vital Signs: Blood pressure 145/71, pulse 85, respiratory rate 16, temperature 98.2, oxygen saturati on 92%. General: Mr. Figueroa is resting in bed in between therapy sessions. HEENT: He is normocephalic, atraumatic. Sclerae anicteric. Oropharynx moist. Neck: Supple. Chest: Clear. Extremities: Left lower extremity shows no edema or cyanosis. Right lower extremity has the postope rative bandage in place and with good hemostasis noted. Laboratory Studies: White blood cell count 5.4, hemoglobin 8.0, platelets 270. Chemistries: Blood sugars ranged from 121 to 186. X-ray/imaging: No new x-rays or imaging. Medications: Tylenol Extra Strength 500 mg every 6 hours, ProSource amino acids 30 mL twice daily, E liquis 5 mg twice daily, ferrous sulfate 325 mg twice daily, gabapentin 300 mg at bedtime. He is on cefazolin 2 g every 8 hours starting from 04/16 to complete 21 doses, Semglee insulin 10 units at bed time, midodrine 5 mg twice daily, nicotine patch 21 mg daily, Protonix 40 mg daily, thiamine 100 mg d aily, tramadol 50 mg every 4 hours as needed. Current Functional Status: Currently, Mr. Figueroa is able to perform repeated yof-rr-lgctd transfers with minimum to maximum assistance using a rolling walker. He performed stand and pivot transfers wi th maximum assistance using a rolling walker. Static balance activities performed with rolling walke r. Wheelchair propulsion, he completed 120 feet twice with stand by assistance at very slow propulsi on. With his occupational therapy, totally dependent on diaper in terms of toileting. Bathing moder ate assistance, required moderate assistance for sitting balance or care. Uppe r body dressing, supervision; lower body dressing, maximum assistance. Did report that he is tired o f sitting in electric scooter all day. He is ready to get into a shower when he was with the occupat ional therapist. He is beginning to work with Speech Therapy, who provided education for him and he spoke understanding and visualized indications that he understood. Progress Towards Rehabilitation Goals: Mr. Figueroa is beginning to make fair progress towards his goa ls of being able to transfer from his bed to a chair, to toilet, and to shower with supervision. Als o, to mobilize a wheelchair and ambulate with a walker and cover around household distances of 50 fee t and mobilized a wheelchair 250 feet with modified independence. He may attempt 5 steps and may req uire supervision or contact guard assistance. Assessment: Mr. 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 He has ongoing IV antibiotics every 8 hours to address the sepsi s associated with his gangrene. He has diabetes mellitus, chronic anemia from chronic renal insuffic iency and renal dysfunction, hypertension, dyslipidemia, hyponatremia, congestive heart failure, Debbie cot foot, status post amputation and he is on Eliquis 5 mg twice daily. Plan: 1.We will continue physical and occupational therapy along with speech therapy for 3-1/2 hours, 5 of 7 days. 2.He will continue to maintain blood pressure, midodrine, however, the dosage was decreased from 5 m g 3 times daily to 5 mg twice daily as his pressures have been now more elevated. The latest pressur e 145/71. 3.Continue Protonix for GE reflux. 4.Continue thiamine for alcohol withdrawal. 5.Continue nicotine patch for tobacco withdrawal. 6.Continue Semglee insulin 10 units at night for his diabetes mellitus. 7.Start gabapentin 300 mg at night for his right below-knee amputation, phantom limb pain. 8.Ferrous sulfate and amino acid supplementation for anemia and malnutrition. 9.Tylenol for pain along with tramadol as needed. Comorbids That Continue To Impact Rehabilitation Process: As noted, he has ongoing IV antibiotics se t by the ID service. Cefazolin 2 g every 8 hours, completing 21 bags and he has a significant anemia that is chronic due to renal insufficiency. May consider controlling the renal service as needed. He is also on Eliquis 5 mg twice daily. May decrease it to 2.5 mg twice daily. KELLY/RUTH ANN Voice ID: [id number] Report ID: [id number]
[2023-04-19] MEDS: TRAMADOL HCL 50 MG TAB PO PRN ×3 (01:00→13:02)
[2023-04-19] MEDS: PANTOPRAZOLE 40MG TABLET PO SCH ×2 (07:28→16:49)
[2023-04-19] MEDS: APIXABAN 5 MG TABLET PO SCH ×2 (07:29→19:07)
[2023-04-19] MEDS: THIAMINE HCL 100 MG TABLET PO SCH (07:29)
[2023-04-19] MEDS: FERROUS SULFATE 325 MG TAB PO SCH ×2 (07:29→19:07)
[2023-04-19] MEDS: MIDODRINE HCL 5 MG TABLET PO SCH ×2 (07:29→19:07)
[2023-04-19] MEDS: INSULIN -REGULAR HUMAN 50 UNIT/0.5 ML ML SQ SCH ×4 (07:30→19:43)
[2023-04-19] MEDS: AMINO ACIDS/PROTEIN HYDROLYS 30 ML LIQUID.PKT PO SCH ×2 (08:00→19:08)
[2023-04-19] MEDS: NICOTINE 21 MG/PAT TD SCH (08:00)
[2023-04-19] MEDS: GABAPENTIN 300 MG CAP PO SCH (19:08)
[2023-04-19] MEDS: INSULIN GLARGINE 100 UNIT/ML SQ SCH (19:43)
[2023-04-20] MEDS: CEFAZOLIN SODIUM 2 GM in NA CHLORIDE 0.9% 100 ML IVPB SCH ×3 (00:06→16:19)
[2023-04-20] MEDS: PANTOPRAZOLE 40MG TABLET PO SCH ×2 (07:07→16:19)
[2023-04-20] MEDS: MIDODRINE HCL 5 MG TABLET PO SCH ×2 (07:08→19:46)
[2023-04-20] MEDS: FERROUS SULFATE 325 MG TAB PO SCH ×2 (07:08→19:46)
[2023-04-20] MEDS: THIAMINE HCL 100 MG TABLET PO SCH (07:08)
[2023-04-20] MEDS: APIXABAN 5 MG TABLET PO SCH ×2 (07:09→19:46)
[2023-04-20] MEDS: INSULIN -REGULAR HUMAN 50 UNIT/0.5 ML ML SQ SCH ×4 (07:30→19:47)
[2023-04-20] MEDS: AMINO ACIDS/PROTEIN HYDROLYS 30 ML LIQUID.PKT PO SCH ×2 (08:00→19:46)
[2023-04-20] MEDS: NICOTINE 21 MG/PAT TD SCH (08:00)
[2023-04-20] MEDS: TRAMADOL HCL 50 MG TAB PO PRN ×2 (08:18→12:27)
[2023-04-20] MEDS: INSULIN GLARGINE 100 UNIT/ML SQ SCH (19:46)
[2023-04-20] MEDS: GABAPENTIN 300 MG CAP PO SCH (19:46)
[2023-04-21] MEDS: CEFAZOLIN SODIUM 2 GM in NA CHLORIDE 0.9% 100 ML IVPB SCH ×3 (00:33→17:04)
--- NOTE | 2023-04-21 04:54 | P.PN ---
Date of Service: 04/20/23 Subjective: Mr. Figueroa reports doing well. He denies phantom limb pain in the right lower extremity amputation. Since there is some nerve pain, which he was previously taking gabapentin for his diabetic neuropathy, but has been off that and so that may be restarted. Otherwise, he has good bowel movements. Sleeping okay. No new complaints. Review of Systems: No fevers and chills and mild phantom limb pain on the right. Mild myalgias as he is exercising. No rash. No pulmonary issues, cardiac issues, dermatological issues, or psychiatric issues. Physical Examination: Vital Signs: Blood pressure 145/71, pulse 85, respiratory rate 16, temperature 98.2, oxygen saturation 92%. General: Mr. Figueroa is resting in bed in between therapy sessions. HEENT: He is normocephalic, atraumatic. Sclerae anicteric. Oropharynx moist. Neck: Supple. Chest: Clear. Extremities: Left lower extremity shows no edema or cyanosis. Right lower extremity has the postoperative bandage in place and with good hemostasis noted. Laboratory Studies: White blood cell count 5.4, hemoglobin 8.0, platelets 270. Chemistries: Blood sugars ranged from 121 to 186. X-ray/imaging: No new x-rays or imaging. Medications: Tylenol Extra Strength 500 mg every 6 hours, ProSource amino acids 30 mL twice daily, Eliquis 5 mg twice daily, ferrous sulfate 325 mg twice daily, gabapentin 300 mg at bedtime. He is on cefazolin 2 g every 8 hours starting from 04/16 to complete 21 doses, Semglee insulin 10 units at bedtime, midodrine 5 mg twice daily, nicotine patch 21 mg daily, Protonix 40 mg daily, thiamine 100 mg daily, tramadol 50 mg every 4 hours as needed. Current Functional Status: Currently, Mr. Figueroa is able to perform repeated cqc-ej-nstlh transfers with minimum to maximum assistance using a rolling walker. He performed stand and pivot transfers with maximum assistance using a rolling walker. Static balance activities performed with rolling walker. Wheelchair propulsion, he completed 120 feet twice with stand by assistance at very slow propulsion. With his occupational therapy, totally dependent on diaper in terms of toileting. Bathing moderate assistance, required moderate assistance for sitting balance or care. Upper body dressing, supervision; lower body dressing, maximum assistance. Did report that he is tired of sitting in electric scooter all day. He is ready to get into a shower when he was with the occupational therapist. He is beginning to work with Speech Therapy, who provided education for him and he spoke understanding and visualized indications that he understood. Progress Towards Rehabilitation Goals: Mr. Figueroa is beginning to make fair progress towards his goals of being able to transfer from his bed to a chair, to toilet, and to shower with supervision. Also, to mobilize a wheelchair and ambulate with a walker and cover around household distances of 50 feet and mobilized a wheelchair 250 feet with modified independence. He may attempt 5 steps and may require supervision or contact guard assistance. Assessment: Mr. Figueroa is a 52-year-old patient in the rehabilitation unit status post right yikyy-zmf-hvdt amputation due to gangrene. He has ongoing IV antibiotics every 8 hours to address the sepsis associated with his gangrene. He has diabetes mellitus, chronic anemia from chronic renal insufficiency and renal dysfunction, hypertension, dyslipidemia, hyponatremia, congestive heart failure, Charcot foot, status post amputation and he is on Eliquis 5 mg twice daily. Plan: 1. We will continue physical and occupational therapy along with speech therapy for 3-1/2 hours, 5 of 7 days. 2. He will continue to maintain blood pressure, midodrine, however, the dosage was decreased from 5 mg 3 times daily to 5 mg twice daily as his pressures have been now more elevated. The latest pressure 145/71. 3. Continue Protonix for GE reflux. 4. Continue thiamine for alcohol withdrawal. 5. Continue nicotine patch for tobacco withdrawal. 6. Continue Semglee insulin 10 units at night for his diabetes mellitus. 7. Start gabapentin 300 mg at night for his right below-knee amputation, phantom limb pain. 8. Ferrous sulfate and amino acid supplementation for anemia and malnutrition. 9. Tylenol for pain along with tramadol as needed. Comorbids That Continue To Impact Rehabilitation Process: As noted, he has ongoing IV antibiotics set by the ID service. Cefazolin 2 g every 8 hours, completing 21 bags and he has a significant anemia that is chronic due to renal insufficiency. May consider controlling the renal service as needed. He is also on Eliquis 5 mg twice daily. May decrease it to 2.5 mg twice daily.
[2023-04-21 04:58] LABS: Absolute Lymphocytes (CBC) 2.1 K/uL (0.7-4.9); Hematocrit 26.6 % (39.6-49.0); Lymphocytes % 34.2 % (15.3-44.8); MCV 89.6 fL (80-100); MPV 6.5 fL (7.6-11.3); Platelets 165 thou/uL (152-406); RBC Red Blood Cell Count 2.97 M/uL (4.33-5.43)
[2023-04-21 05:12] LABS: Albumin 2.3 g/dL (3.4-5.0); Magnesium 1.8 mg/dL (1.6-2.4); Potassium 3.9 mEq/L (3.5-5.1); Prealbumin 19.5 mg/dL (20-40)
[2023-04-21] MEDS: INSULIN -REGULAR HUMAN 50 UNIT/0.5 ML ML SQ SCH ×4 (07:16→20:42)
[2023-04-21] MEDS: NICOTINE 21 MG/PAT TD SCH (08:00)
[2023-04-21] MEDS: AMINO ACIDS/PROTEIN HYDROLYS 30 ML LIQUID.PKT PO SCH ×2 (08:00→20:00)
[2023-04-21] MEDS: PANTOPRAZOLE 40MG TABLET PO SCH ×2 (08:46→17:03)
[2023-04-21] MEDS: FERROUS SULFATE 325 MG TAB PO SCH ×2 (08:48→20:41)
[2023-04-21] MEDS: THIAMINE HCL 100 MG TABLET PO SCH (08:48)
[2023-04-21] MEDS: MIDODRINE HCL 5 MG TABLET PO SCH ×2 (08:48→20:41)
[2023-04-21] MEDS: APIXABAN 5 MG TABLET PO SCH ×2 (08:48→20:41)
[2023-04-21] MEDS: TRAMADOL HCL 50 MG TAB PO PRN ×3 (08:49→22:00)
[2023-04-21] MEDS: GABAPENTIN 300 MG CAP PO SCH (20:41)
[2023-04-21] MEDS: INSULIN GLARGINE 100 UNIT/ML SQ SCH (20:41)
[2023-04-22] MEDS: CEFAZOLIN SODIUM 2 GM in NA CHLORIDE 0.9% 100 ML IVPB SCH ×3 (00:22→16:35)
[2023-04-22] MEDS: INSULIN -REGULAR HUMAN 50 UNIT/0.5 ML ML SQ SCH ×4 (07:17→20:09)
[2023-04-22] MEDS: PANTOPRAZOLE 40MG TABLET PO SCH ×2 (07:29→16:35)
[2023-04-22] MEDS: AMINO ACIDS/PROTEIN HYDROLYS 30 ML LIQUID.PKT PO SCH ×2 (08:00→19:28)
[2023-04-22] MEDS: NICOTINE 21 MG/PAT TD SCH (08:00)
[2023-04-22] MEDS: FERROUS SULFATE 325 MG TAB PO SCH ×2 (08:14→19:28)
[2023-04-22] MEDS: APIXABAN 5 MG TABLET PO SCH ×2 (08:15→19:28)
[2023-04-22] MEDS: THIAMINE HCL 100 MG TABLET PO SCH (08:15)
[2023-04-22] MEDS: MIDODRINE HCL 5 MG TABLET PO SCH ×2 (08:15→19:34)
--- NOTE | 2023-04-22 13:12 | P.RH.PN ---
Estimated Length of Stay: 16 Expected Discharge Date: 05/01/23 Discharge Disposition Plan: Home Family Support: No Production Quality Analyst Goal: Mobility Vital Signs: Last Vital Signs Temp 97.2 F 04/22/23 06:45 Pulse 87 04/22/23 06:45 Resp 19 04/22/23 06:45 BP 151/88 H 04/22/23 06:45 Pulse Ox 84 L 04/22/23 06:45 Laboratory: Laboratory Last Values WBC 6.00 thou/uL (4.3-10.9) 04/21/23 04:27 RBC 2.97 M/uL (4.33-5.43) L 04/21/23 04:27 Hgb 8.8 g/dL (13.6-17.9) L 04/21/23 04:27 Hct 26.6 % (39.6-49.0) L 04/21/23 04:27 MCV 89.6 fL (80-100) 04/21/23 04:27 MCH 29.6 pg (27.0-35.0) 04/21/23 04:27 MCHC 33.1 g/dL (32.0-36.0) 04/21/23 04:27 RDW 16.7 % (12.1-15.2) H 04/21/23 04:27 Plt Count 165 thou/uL (152-406) 04/21/23 04:27 MPV 6.5 fL (7.6-11.3) L 04/21/23 04:27 Neutrophils % 57.1 % (41.7-73.7) 04/21/23 04:27 Lymphocytes % 34.2 % (15.3-44.8) 04/21/23 04:27 Monocytes % 6.4 % (3.3-12.3) 04/21/23 04:27 Eosinophils % 1.2 % (0-4.4) 04/21/23 04:27 Basophils % 1.1 % (0-1.3) 04/21/23 04:27 Absolute Neutrophils 3.4 K/uL (1.8-8.0) 04/21/23 04:27 Absolute Lymphocytes 2.1 K/uL (0.7-4.9) 04/21/23 04:27 Absolute Monocytes 0.4 K/uL (0.1-1.3) 04/21/23 04:27 Absolute Eosinophils 0.1 K/uL (0-0.5) 04/21/23 04:27 Absolute Basophils 0.1 K/uL (0-0.5) 04/21/23 04:27 Sodium 139 mEq/L (136-145) 04/21/23 04:27 Potassium 3.9 mEq/L (3.5-5.1) 04/21/23 04:27 Chloride 107 mEq/L (98-107) 04/21/23 04:27 Carbon Dioxide 27 mEq/L (21-32) 04/21/23 04:27 Anion Gap 8.9 mEq/L (5.0-15.0) 04/21/23 04:27 BUN 12 mg/dL (7-18) 04/21/23 04:27 Creatinine 1.28 mg/dL (0.70-1.30) 04/21/23 04:27 Est GFR (CKD-EPI) 67 ml/min (=/>90) L 04/21/23 04:27 Glucose 147 mg/dL (74-106) H 04/21/23 04:27 POC Glucose 149 mg/dL (65-120) H 04/22/23 11:16 Calcium 8.7 mg/dL (8.5-10.1) 04/21/23 04:27 Magnesium 1.8 mg/dL (1.6-2.4) 04/21/23 04:27 Albumin 2.3 g/dL (3.4-5.0) L 04/21/23 04:27 Prealbumin 19.5 mg/dL (20-40) L 04/21/23 04:27 Weight: 233 lb 9.6 oz Wound Present: No Closed Surgical Incision Present: Yes Negative Pressure Wound Therapy Present: No Medication Issues: ANCEF Q8H-DC IN AM Psychosocial Needs: IMPULSIVITY Functional Improvement: MAX ASSIST X 2-->NOW MINIMAL ASSIST TO CONTACT GUARD; MEMORY DEFICITS Functional Improvement Occupational Therapy: PT WAS MAX X 2 AND NOW WITH CONTACT GUARD-->MOTOR QUE TO REMEBER WHAT HE IS DOING. HE IS MAKING PROGRESS. Speech Therapy Update: N/A-PT REFUSED Summary: Patient's care plan and usp goals have been reviewed and revised as necessary. Please see the Rehabilitation Signature page for all necessary signatures.
[2023-04-22] MEDS: ATORVASTATIN 40 MG TAB PO SCH (19:28)
[2023-04-22] MEDS: GABAPENTIN 300 MG CAP PO SCH (19:28)
[2023-04-22] MEDS: TRAMADOL HCL 50 MG TAB PO PRN (19:29)
[2023-04-22] MEDS: INSULIN GLARGINE 100 UNIT/ML SQ SCH (21:17)
[2023-04-23] MEDS: CEFAZOLIN SODIUM 2 GM in NA CHLORIDE 0.9% 100 ML IVPB SCH ×2 (00:38→08:48)
[2023-04-23] MEDS: TRAMADOL HCL 50 MG TAB PO PRN ×2 (03:38→21:25)
[2023-04-23] MEDS: INSULIN -REGULAR HUMAN 50 UNIT/0.5 ML ML SQ SCH ×4 (07:17→19:49)
[2023-04-23] MEDS: NICOTINE 21 MG/PAT TD SCH (08:00)
[2023-04-23] MEDS: AMINO ACIDS/PROTEIN HYDROLYS 30 ML LIQUID.PKT PO SCH ×2 (08:00→19:49)
[2023-04-23] MEDS: PANTOPRAZOLE 40MG TABLET PO SCH ×2 (08:03→17:03)
[2023-04-23] MEDS: APIXABAN 5 MG TABLET PO SCH ×2 (08:44→19:49)
[2023-04-23] MEDS: THIAMINE HCL 100 MG TABLET PO SCH (08:44)
[2023-04-23] MEDS: FERROUS SULFATE 325 MG TAB PO SCH ×2 (08:44→19:48)
[2023-04-23] MEDS: MIDODRINE HCL 5 MG TABLET PO SCH ×2 (08:44→19:48)
[2023-04-23] MEDS: GABAPENTIN 300 MG CAP PO SCH (19:48)
[2023-04-23] MEDS: ATORVASTATIN 40 MG TAB PO SCH (19:49)
[2023-04-23] MEDS: INSULIN GLARGINE 100 UNIT/ML SQ SCH (19:49)
[2023-04-23] MEDS ORDERED: DOCUSATE NA/SENNA CONC 1 TAB PO PRN (22:27)
[2023-04-24] MEDS: PANTOPRAZOLE 40MG TABLET PO SCH ×2 (07:22→16:18)
[2023-04-24] MEDS: NICOTINE 21 MG/PAT TD SCH (07:23)
[2023-04-24] MEDS: MIDODRINE HCL 5 MG TABLET PO SCH ×2 (07:23→19:56)
[2023-04-24] MEDS: FERROUS SULFATE 325 MG TAB PO SCH ×2 (07:23→19:56)
[2023-04-24] MEDS: APIXABAN 5 MG TABLET PO SCH ×2 (07:23→19:55)
[2023-04-24] MEDS: THIAMINE HCL 100 MG TABLET PO SCH (07:23)
[2023-04-24] MEDS: INSULIN -REGULAR HUMAN 50 UNIT/0.5 ML ML SQ SCH ×4 (07:30→19:57)
[2023-04-24] MEDS: AMINO ACIDS/PROTEIN HYDROLYS 30 ML LIQUID.PKT PO SCH ×3 (07:46→19:56)
[2023-04-24] MEDS: ATORVASTATIN 40 MG TAB PO SCH (19:55)
[2023-04-24] MEDS: GABAPENTIN 300 MG CAP PO SCH (19:56)
[2023-04-24] MEDS: INSULIN GLARGINE 100 UNIT/ML SQ SCH (19:56)
[2023-04-24] MEDS: TRAMADOL HCL 50 MG TAB PO PRN (20:01)
[2023-04-25] MEDS: TRAMADOL HCL 50 MG TAB PO PRN ×2 (03:18→21:35)
[2023-04-25] MEDS: PANTOPRAZOLE 40MG TABLET PO SCH ×2 (07:21→16:44)
[2023-04-25] MEDS: THIAMINE HCL 100 MG TABLET PO SCH (07:22)
[2023-04-25] MEDS: APIXABAN 5 MG TABLET PO SCH ×2 (07:23→21:01)
[2023-04-25] MEDS: FERROUS SULFATE 325 MG TAB PO SCH ×2 (07:24→21:01)
[2023-04-25] MEDS: INSULIN -REGULAR HUMAN 50 UNIT/0.5 ML ML SQ SCH ×4 (07:30→21:03)
[2023-04-25] MEDS: AMINO ACIDS/PROTEIN HYDROLYS 30 ML LIQUID.PKT PO SCH ×2 (07:46→19:57)
[2023-04-25] MEDS: NICOTINE 21 MG/PAT TD SCH (07:46)
[2023-04-25] MEDS: MIDODRINE HCL 5 MG TABLET PO SCH ×2 (08:00→21:00)
[2023-04-25] MEDS: ATORVASTATIN 40 MG TAB PO SCH (21:01)
[2023-04-25] MEDS: INSULIN GLARGINE 100 UNIT/ML SQ SCH (21:02)
[2023-04-25] MEDS: GABAPENTIN 300 MG CAP PO SCH (21:17)
--- NOTE | 2023-04-25 22:51 | PN ---
Date of Progress Note: 04/25/2023 Time Of Service: 1 p.m. Subjective: Mr. Figueroa reports doing well. His phantom limb pain is worse at nighttime, but is bett er managed during the day. Otherwise, he has no subjective complaints. Review of Systems: Denies any recent fevers or chills. Again, phantom limb pain on right lower extremity. No nausea or vomiting. Mild myalgias. No rash. No psychiatric issues. No evidence of depression. Physical Examination: Vital Signs: Blood pressure 158/88, pulse of 95, respiratory rate 17, temperature 97.5, oxygen satur ation 95% on room air. Pain level 0 to 1. General: Mr. Figueroa is resting comfortably in bed. His right lower extremity stump is bandaged well with good hemostasis. HEENT: Normocephalic, atraumatic. Sclerae anicteric. Oropharynx pink, moist. Chest: Clear. Extremities: Left lower extremity shows no cyanosis or edema. Laboratory Studies: On the , white blood cell count 6.0, hemoglobin 8.8, platelets 165. Chemistr ies; blood sugar ranged from 129 to 168. X-ray/imaging: No new x-rays or imaging. Medications: Eliquis 5 mg twice daily, ProSource amino acids 30 mL twice daily, Tylenol 500 mg every 6 hours as needed, Lipitor 40 mg at bedtime, ferrous sulfate 325 mg twice daily, gabapentin 300 mg a t bedtime, Semglee insulin 10 units at bedtime, midodrine 2.5 mg twice daily, nicotine patch 21 mg da scott, Protonix 40 mg twice daily, Senokot-S 2 at bedtime, thiamine 100 mg daily, Ultram 50 mg every 4 hours as needed. Current Functional Status: Today, Mr. Figueroa was able to perform gait training, completing 5 steps w ith a rolling walker, demonstrated improved body positioning, worked on wheelchair mobilization, karleye ring 250 feet. Still has trouble negotiating obstacles, bed to wheelchair transfers with squat and p ivot technique, was at minimum to contact guard assistance. In terms of his occupational therapy, mi nimal assistance required for supine to sit transfer. He transferred from edge of bed to wheelchair with supervision, self-propelled a wheelchair from the room to gym with independence. Did work on co re strengthening exercises. Did work with speech therapy with long-term goals of improving general c ognitive functioning, facilitate participation in ADLs, promote independence, and safety awareness wi th 80% accuracy and minimum assistance. Progress Towards Rehabilitation Goals: Mr. Figueroa is making great progress so far towards his goals of becoming independent with upper and lower body dressing, transferring, toileting, showering, and p erforming all activities of daily living. In addition, he is working on ambulating with a knee walke r, trying to become at least min assist there and with a wheelchair modified independence and not exp ected to be able to go up and down steps currently. Assessment: Mr. Figueroa is a 52-year-old patient in the rehabilitation unit, status post right below- knee amputation due to gangrene. He is on ongoing IV antibiotics every 8 hours due to sepsis and his gangrene. He has diabetes mellitus with fair blood sugar control. His renal insufficiency is moder ately controlled. Hypertension, he has dyslipidemia, hyponatremia, CHF, Charcot foot status post amp utation. He is on Eliquis for DVT risk reduction and stroke risk reduction. Plan: 1.We will continue physical, occupational, and speech therapy for 3.5 hours, 5 to 7 days. 2.Continue Protonix for GE reflux and continue thiamine for alcohol withdrawal. 3.Continue with midodrine at a lower level of 5 mg twice daily for blood pressure which is lower naseem n 120/80, we will discontinue if higher than that. Continue gabapentin 300 mg at night, may increase to 600 mg at night if need be. Continue ferrous sulfate and amino acid supplementation for anemia a nd malnutrition. Continue Semglee insulin 10 units at night for diabetes mellitus. Continue nicotin e patch for alcohol withdrawal. Continue Tylenol and tramadol as needed for pain. Comorbidities That Continue To Impact Rehabilitation Process: He is receiving IV antibiotics with ce fazolin 2 g every 8 hours, completed 21 bags and started on 04/18. Also, Eliquis is down to 2.5 mg t wice daily and midodrine is also decreased such that he is not overmedicated. LB/MODL Voice ID: [id number] Report ID: [id number]
[2023-04-26] MEDS: THIAMINE HCL 100 MG TABLET PO SCH (07:10)
[2023-04-26] MEDS: APIXABAN 5 MG TABLET PO SCH ×2 (07:10→20:25)
[2023-04-26] MEDS: FERROUS SULFATE 325 MG TAB PO SCH ×2 (07:10→20:25)
[2023-04-26] MEDS: NICOTINE 21 MG/PAT TD SCH (07:11)
[2023-04-26] MEDS: PANTOPRAZOLE 40MG TABLET PO SCH ×2 (07:11→17:08)
[2023-04-26] MEDS: INSULIN -REGULAR HUMAN 50 UNIT/0.5 ML ML SQ SCH ×4 (07:11→20:26)
[2023-04-26] MEDS: MIDODRINE HCL 5 MG TABLET PO SCH ×2 (07:12→20:00)
[2023-04-26] MEDS: AMINO ACIDS/PROTEIN HYDROLYS 30 ML LIQUID.PKT PO SCH ×2 (07:12→20:00)
[2023-04-26] MEDS: ATORVASTATIN 40 MG TAB PO SCH (20:25)
[2023-04-26] MEDS: INSULIN GLARGINE 100 UNIT/ML SQ SCH (20:26)
[2023-04-26] MEDS: GABAPENTIN 300 MG CAP PO SCH (21:28)
[2023-04-26] MEDS: TRAMADOL HCL 50 MG TAB PO PRN (21:28)
--- NOTE | 2023-04-26 21:52 | RAD REPORT ---
[facility]16 [facility] CLINICAL HISTORY: shortness of breath COMPARISON: Chest Single View dated 04/07/2023; Chest Single View dated 03/28/2023; Chest Single View dated 10/01/2021; Chest Single View dated 09/15/2021 TECHNIQUE: Portable AP view of the chest. FINDINGS: The lungs show no new focal consolidation. Central interstitial prominence is stable to pr ogressed since the prior exam. . No pneumothorax or effusion. The cardiomediastinal contours are unre markable. IMPRESSION: Stable or mildly progressive central interstitial prominence, concerning for CHF or pulm onary edema.
--- NOTE | 2023-04-27 04:54 | PN ---
Date of Progress Note: 04/26/2023 Time Of Service: 1:30 p.m. Subjective: Mr. Figueroa feels he is doing better, but still has mild to moderate right lower extremit y phantom limb pain at nighttime, worse than day. Review of Systems: No fevers or chills. No significant arthralgias. Some mild myalgias. No rash. No psychiatric issu es. No active gastrointestinal or genitourinary disturbing issues. Physical Examination: Vital Signs: Blood pressure 160/83, pulse 94, respiratory rate 16, temperature 97.6, oxygen saturati on 94%. General: Mr. Figueroa is lying in bed. He is doing therapy sessions. He is in no apparent distress. HEENT: He is normocephalic, atraumatic. Sclerae anicteric. Abdomen: Soft. Extremities: Right BKA with good hemostasis at the stump site and left is in good, ordinary function ing. No evidence of cyanosis or edema, that is the left lower extremity. Laboratory Studies: Blood sugars ranged from 146 to 196. X-ray Imaging: Chest x-ray done today shows stable, mildly progressive central interstitial prominen ce concerning for CHF or pulmonary edema. Medications: Tylenol 500 mg every 6 hours as needed, amino acid 30 mL twice daily, Eliquis 5 mg twic e daily, Lipitor 40 mg at bedtime, ferrous sulfate 325 mg twice daily, gabapentin 600 mg at bedtime, Semglee insulin 10 units at bedtime, regular insulin sliding scale moderate, midodrine 2.5 mg twice d aily, nicotine patch 21 mg applied topically daily, Protonix 40 mg twice daily, Senokot-S 2 at bedtim e, thiamine 100 mg daily, tramadol 50 mg every 4 hours as needed. Current Functional Status: Today, he ambulated 20 feet with 2 seated rest breaks with a rolling walk er with maximum assistance 200 feet with supervision. With occupational therapy, supervis ion for bathing, independent for upper body dressing, min assist for lower body dressing, independent with grooming, supervision for shower transfer. With his speech therapy, he is independent for task s associated with his sequencing and alternating attention, needed moderate to minimal assistance for working memory, minimum assistance for recalling 2 sets of 3 of 3 unrelated items after 3 minutes. Progress Towards Rehabilitation Goals: Mr. Figueroa is making good progress with goals of becoming ind ependent with his ability to transfer from bed to chair to toilet to mobilize with a wheelchair, corinne kassandra slow progress, ambulate with a rolling walker, and to work on his upper body strength and using th e left lower extremity. His cognitive functioning: He is making good progress towards independence with comprehension, expression, and ability to follow instructions and to have his safety awareness g iven his new right caffz-dkv-ifqn amputation. Assessment: 1.Mr. Figueroa is a 52-year-old patient in the rehabilitation unit with a right eqkxf-fnl-iuno amputat ion due to gangrene. He has IV antibiotics to cover his sepsis and gangrene. 2.He has comorbid diabetes mellitus with blood sugars showing good control. He has renal insufficie ncy, hypertension, dyslipidemia, hyponatremia, congestive heart failure. Sindyfelisha is on board for DVT and stroke risk reduction. Plan: 1.We will have physical, occupational, and speech therapy for 3.5 hours, 5 of 7 days. 2.Continue his comorbid medications including thiamine for alcohol withdrawal, Protonix for GE reflu x. 3.Midodrine has been decreased to 2.5 mg daily for blood pressure support. 4.Gabapentin will be increased to 600 mg at night for phantom limb pain. 5.Ferrous sulfate amino acid supplementation for his anemia and malnutrition. 6.Semglee insulin for diabetes mellitus. 7.Nicotine patch for tobacco withdrawal. 8.Tramadol and Tylenol as needed for pain. Comorbidities That Continue To Impact His Rehabilitation: Currently, he is still requiring IV antibi otics 2 g every 8 hours and the therapy is being worked around that and he does have the issue of blo od pressure support requirement and will continue midodrine. Thus, risk of worsening infe ction, continue antibiotics. LB/MODL Voice ID: [id number] Report ID: [id number]
[2023-04-27] MEDS: INSULIN -REGULAR HUMAN 50 UNIT/0.5 ML ML SQ SCH ×4 (07:30→20:14)
[2023-04-27] MEDS: PANTOPRAZOLE 40MG TABLET PO SCH ×2 (07:48→16:50)
[2023-04-27] MEDS: APIXABAN 5 MG TABLET PO SCH ×2 (07:49→20:14)
[2023-04-27] MEDS: FERROUS SULFATE 325 MG TAB PO SCH ×2 (07:49→20:14)
[2023-04-27] MEDS: THIAMINE HCL 100 MG TABLET PO SCH (07:49)
[2023-04-27] MEDS: NICOTINE 21 MG/PAT TD SCH (07:49)
[2023-04-27] MEDS: AMINO ACIDS/PROTEIN HYDROLYS 30 ML LIQUID.PKT PO SCH ×2 (07:50→20:00)
[2023-04-27] MEDS: MIDODRINE HCL 5 MG TABLET PO SCH ×2 (07:50→20:00)
[2023-04-27] MEDS: ATORVASTATIN 40 MG TAB PO SCH (20:14)
[2023-04-27] MEDS: INSULIN GLARGINE 100 UNIT/ML SQ SCH (20:15)
[2023-04-27] MEDS: TRAMADOL HCL 50 MG TAB PO PRN (21:28)
[2023-04-27] MEDS: GABAPENTIN 300 MG CAP PO SCH (21:28)
--- NOTE | 2023-04-28 03:23 | PN ---
Date of Progress Note: 04/27/2023 Time Of Service: 1:30 p.m. Subjective: Mr. Figueroa is resting comfortably. He says his phantom limb pain in the right lower ext remity has improved a lot since going up on gabapentin 600 at night. There are no other complaints. Review of Systems: No fevers or chills and no significant phantom limb pain. No significant myalgias or arthralgias. N o rash. No headache. No other complaints. Physical Examination: Vital Signs: Blood pressure 162/90, pulse 95, respiratory rate 16, temperature 97.4, oxygen saturati on 95%. General: Mr. Figueroa is resting in bed in between therapy sessions. HEENT: He is normocephalic, atraumatic. Sclerae anicteric. Oropharynx pink and moist. Neck: Supple. Extremities: His right kxler-lvs-tuvt amputation stump has good hemostasis. He is happy about commu nicating with a [employer] and Dr. Hays had seen him and is doing well. Laboratory Studies: Blood sugars ranged from 166 to 184. X-ray/imaging: No new x-rays or imaging. Medications: Medications have been reviewed and remained unchanged. Current Functional Status: Today, he ambulated 8 feet 6 times with minimum assistance in the paralle l bars. Mobilizing wheelchair 175 feet with standby assistance. Wqpwtp-ut-yto transfers done with s tandby assistance. Multiple ewi-wl-owbpw transfers done with minimum assistance. With his speech th erapy, he was independent for alternating attention tasks and sequencing tasks, required minimum assi stance for working memory and was independent to recall 2 sets of 3 items after 3 minutes. Progress Towards Rehabilitation Goals: Mr. Figueroa is making good progress towards his goals of becom ing independent with his transfers, his mobilization although somewhat slow to fair progress there. He is making much progress with wheelchair mobilization and he is actually having a wheelchair delive red at home. Assessment: Mr. Figueroa is a 52-year-old patient in the rehabilitation unit with a right zonpq-blu-ix ee amputation, who is making fair overall progress. He is on IV antibiotics for sepsis. He has diab etes, hypertension, dyslipidemia, hyponatremia, congestive heart failure, and renal insufficiency. Plan: 1.Continue with physical, occupational, and speech therapy for 3.5 hours, 5 of 7 days. 2.He has multiple comorbid conditions, which are listed above. We will continue midodrine to help s upport blood pressure. His blood pressure is dropping. Gabapentin for neuropathic pain. Ferrous fish lfate and amino acid for anemia and malnutrition. Continue Semglee insulin for diabetes. Continue n icotine patch with a plan to cut back to 14 mg daily and continue tramadol and Tylenol as needed. Comorbidities That Continue To Impact His Rehabilitation Process: He is receiving IV antibiotics, wh ich we will continue. His therapy schedule will be worked around that. He otherwise has a risk of a lcohol and tobacco withdrawal and those are covered by vitamins and nicotine patch. LB/BRONSONL Voice ID: [id number] Report ID: [id number]
[2023-04-28 04:44] LABS: Absolute Lymphocytes (CBC) 2.1 K/uL (0.7-4.9); Hematocrit 25.3 % (39.6-49.0); Lymphocytes % 40.6 % (15.3-44.8); MCV 88.7 fL (80-100); MPV 7.1 fL (7.6-11.3); Platelets 154 thou/uL (152-406); RBC Red Blood Cell Count 2.85 M/uL (4.33-5.43)
[2023-04-28 05:43] LABS: Albumin 2.5 g/dL (3.4-5.0); Magnesium 1.4 mg/dL (1.6-2.4); Potassium 3.8 mEq/L (3.5-5.1); Prealbumin 15.9 mg/dL (20-40)
[2023-04-28] MEDS: INSULIN -REGULAR HUMAN 50 UNIT/0.5 ML ML SQ SCH ×4 (07:05→19:57)
[2023-04-28] MEDS: PANTOPRAZOLE 40MG TABLET PO SCH ×2 (07:08→17:04)
[2023-04-28] MEDS: AMINO ACIDS/PROTEIN HYDROLYS 30 ML LIQUID.PKT PO SCH ×2 (07:53→19:57)
[2023-04-28] MEDS: NICOTINE 14 MG/PAT TD SCH (07:53)
[2023-04-28] MEDS: FERROUS SULFATE 325 MG TAB PO SCH ×2 (07:54→19:55)
[2023-04-28] MEDS: THIAMINE HCL 100 MG TABLET PO SCH (07:54)
[2023-04-28] MEDS: MIDODRINE HCL 5 MG TABLET PO SCH ×2 (07:54→19:57)
[2023-04-28] MEDS: APIXABAN 5 MG TABLET PO SCH ×2 (07:54→19:56)
[2023-04-28] MEDS ORDERED: MAGNESIUM SULFATE 1 gm IVPB 1 GM/100 ML BAG IV ONE (10:55)
[2023-04-28] MEDS: FE SULF/FA/VIT B COMP & C TAB PO SCH (17:04)
[2023-04-28] MEDS: ATORVASTATIN 40 MG TAB PO SCH (19:56)
[2023-04-28] MEDS: MAGNESIUM OXIDE 400 MG TAB PO SCH (19:57)
[2023-04-28] MEDS: INSULIN GLARGINE 100 UNIT/ML SQ SCH (19:58)
[2023-04-28] MEDS: GABAPENTIN 300 MG CAP PO SCH (20:33)
[2023-04-28] MEDS: TRAMADOL HCL 50 MG TAB PO PRN (20:33)
--- NOTE | 2023-04-28 22:45 | PN ---
Date of Progress Note: 04/28/2023 Time Of Service: 1:25 p.m. Subjective: Mr. Figueroa is resting comfortably. He reports phantom limb pain is well managed since g oing up on gabapentin 600 mg at night. He has no other subjective complaints. Review of Systems: Again, mild myalgias and arthralgias, but no rash, headache, weight change. No psychiatric complaint s. No other issues. Physical Examination: Vital Signs: Blood pressure 161/92, pulse of 98, respiratory rate 18, temperature 97.1, oxygen satur ation 91%. General: Mr. Figueroa is resting comfortably. Extremities: He has good hemostasis on the right below-knee amputation stump. Neurological: He does not have focal deficits, but has some difficulty with ability to maintain noemi nce coordination, given his new right zayvv-nqs-axza amputation. Laboratory Studies: White blood cell count 5.8, hemoglobin 8.4, that is today, 04/28. On 04/17, hemo globin is 8.0. Platelets 154, sodium 138, potassium 3.8, chloride 105, carbon dioxide 28, BUN 13, cr eatinine 1.1, glucose ranged from 154 to 194. Prealbumin 15.9, albumin 2.5. X-ray/imaging: No new x-rays or imaging. Medications: His medications have been reviewed and remained unchanged. Current Level Of Functioning: Today, he did supine to sit transfers with standby assistance. Sit-to -stand transfers with contact guard assistance. He needed moderate assist for all transfers except a minimum assist of a sliding board to the car, ambulated in the parallel bars 12 x 8 feet each with c ontact guard assistance and a rolling walker, he ambulated 5 feet twice with maximum assistance. Wit h occupational therapy, supine to sit transfers with verbal cues with supervision. He did fatigue af ter a shower, requiring assistance. He is unable to stand independently. Progress Towards Rehabilitation Goals: Mr. Figueroa is making fair progress overall towards his goals of becoming independent with upper and lower body dressing, transferring, showering, toileting, perfo rming activities of daily living and mobilizing a wheelchair 250 feet and ambulating about 50 feet wi th min assist or towards modified independence. Assessment And Plan: Mr. Figueroa is a 52-year-old patient in the rehabilitation unit with a right bel ow-the-knee amputation, who is making fair overall progress. He is still on IV antibiotics for sepsi s which actually led to the amputation. He has diabetes mellitus, hypertension, dyslipidemia, hypona tremia, congestive heart failure, and renal insufficiency. Plan: 1.Continue with physical, occupational therapy, and speech therapy 3.5 hours, 5 of 7 days. 2.Continue with all medications for comorbid conditions including gabapentin for his phantom limb ne uropathic pain, amino acid and ferrous sulfate for malnutrition and anemia. Continue Semglee insulin for diabetes mellitus, nicotine patch for tobacco withdrawal, tramadol and Tylenol as needed for jae n. Comorbidities That Continue To Impact Rehabilitation: He has IV antibiotics which are scheduled. He is working around that, having his physical therapy and is not negatively impacting his rehabilitati on. His other comorbids are well managed and do not negatively impact his rehabilitation. KELLY/RUTH ANN Voice ID: [id number] Report ID: [id number]
[2023-04-29] MEDS: INSULIN -REGULAR HUMAN 50 UNIT/0.5 ML ML SQ SCH ×4 (06:59→20:22)
[2023-04-29] MEDS: PANTOPRAZOLE 40MG TABLET PO SCH ×2 (06:59→17:00)
[2023-04-29] MEDS: MIDODRINE HCL 5 MG TABLET PO SCH ×2 (08:00→20:00)
[2023-04-29] MEDS: NICOTINE 14 MG/PAT TD SCH (08:00)
[2023-04-29] MEDS: AMINO ACIDS/PROTEIN HYDROLYS 30 ML LIQUID.PKT PO SCH ×2 (08:00→20:00)
[2023-04-29] MEDS: APIXABAN 5 MG TABLET PO SCH ×2 (08:20→20:21)
[2023-04-29] MEDS: THIAMINE HCL 100 MG TABLET PO SCH (08:20)
[2023-04-29] MEDS: FERROUS SULFATE 325 MG TAB PO SCH ×2 (08:20→20:21)
[2023-04-29] MEDS: FE SULF/FA/VIT B COMP & C TAB PO SCH (08:20)
[2023-04-29] MEDS: MAGNESIUM OXIDE 400 MG TAB PO SCH ×2 (08:20→20:21)
[2023-04-29] MEDS ORDERED: Magnesium Sulfate 2gm IVPB 2 G/50 ML BAG IV ONE (10:50)
--- NOTE | 2023-04-29 13:30 | P.RH.PN ---
Estimated Length of Stay: 16 Expected Discharge Date: 05/02/23 Discharge Disposition Plan: Home Family Support: Yes Mcfp Goal: Mobility, Transfers, Self Care Vital Signs: Last Vital Signs Temp 97 F 04/29/23 06:45 Pulse 99 H 04/29/23 06:45 Resp 19 04/29/23 06:45 BP 155/92 H 04/29/23 06:45 Pulse Ox 88 L 04/29/23 06:45 Laboratory: Laboratory Last Values WBC 5.30 thou/uL (4.3-10.9) 04/28/23 03:47 RBC 2.85 M/uL (4.33-5.43) L 04/28/23 03:47 Hgb 8.4 g/dL (13.6-17.9) L 04/28/23 03:47 Hct 25.3 % (39.6-49.0) L 04/28/23 03:47 MCV 88.7 fL (80-100) 04/28/23 03:47 MCH 29.3 pg (27.0-35.0) 04/28/23 03:47 MCHC 33.0 g/dL (32.0-36.0) 04/28/23 03:47 RDW 18.1 % (12.1-15.2) H 04/28/23 03:47 Plt Count 154 thou/uL (152-406) 04/28/23 03:47 MPV 7.1 fL (7.6-11.3) L 04/28/23 03:47 Neutrophils % 48.5 % (41.7-73.7) 04/28/23 03:47 Lymphocytes % 40.6 % (15.3-44.8) 04/28/23 03:47 Monocytes % 7.9 % (3.3-12.3) 04/28/23 03:47 Eosinophils % 1.5 % (0-4.4) 04/28/23 03:47 Basophils % 1.5 % (0-1.3) H 04/28/23 03:47 Absolute Neutrophils 2.6 K/uL (1.8-8.0) 04/28/23 03:47 Absolute Lymphocytes 2.1 K/uL (0.7-4.9) 04/28/23 03:47 Absolute Monocytes 0.4 K/uL (0.1-1.3) 04/28/23 03:47 Absolute Eosinophils 0.1 K/uL (0-0.5) 04/28/23 03:47 Absolute Basophils 0.1 K/uL (0-0.5) 04/28/23 03:47 Sodium 138 mEq/L (136-145) 04/28/23 03:47 Potassium 3.8 mEq/L (3.5-5.1) 04/28/23 03:47 Chloride 105 mEq/L (98-107) 04/28/23 03:47 Carbon Dioxide 28 mEq/L (21-32) 04/28/23 03:47 Anion Gap 8.8 mEq/L (5.0-15.0) 04/28/23 03:47 BUN 13 mg/dL (7-18) 04/28/23 03:47 Creatinine 1.11 mg/dL (0.70-1.30) 04/28/23 03:47 Est GFR (CKD-EPI) 79 ml/min (=/>90) L 04/28/23 03:47 Glucose 188 mg/dL (74-106) H 04/28/23 03:47 POC Glucose 217 mg/dL (65-120) H 04/29/23 11:09 Calcium 8.4 mg/dL (8.5-10.1) L 04/28/23 03:47 Magnesium 1.6 mg/dL (1.6-2.4) 04/29/23 03:37 Albumin 2.5 g/dL (3.4-5.0) L 04/28/23 03:47 Prealbumin 15.9 mg/dL (20-40) L 04/28/23 03:47 Weight: 230 lb Wound Present: No Closed Surgical Incision Present: Yes Negative Pressure Wound Therapy Present: No Physician Update: He is making good overall progress with therapy. His magnesium is very low today and will received 2 grams of magnesium. His Hgb is low at 8.4, treated with hemocyte plus and ferrous sulfate. His phantom limb pain is better with gabapentin 600 mg at night. He will be d/reno in the AM. Medication Issues: ANCEF Q8H-DC IN AM Psychosocial Needs: IMPULSIVITY Functional Improvement: MAX ASSIST X 2-->NOW MINIMAL ASSIST TO CONTACT GUARD; MEMORY DEFICITS Functional Improvement Occupational Therapy: PT WAS MAX X 2 AND NOW WITH CONTACT GUARD-->MOTOR QUE TO REMEBER WHAT HE IS DOING. HE IS MAKING PROGRESS. Speech Therapy Update: N/A-PT REFUSED Summary: Patient's care plan and oysterman goals have been reviewed and revised as necessary. Please see the Rehabilitation Signature page for all necessary signatures.
[2023-04-29] MEDS: ATORVASTATIN 40 MG TAB PO SCH (20:21)
[2023-04-29] MEDS: GABAPENTIN 300 MG CAP PO SCH (20:22)
[2023-04-29] MEDS: INSULIN GLARGINE 100 UNIT/ML SQ SCH (20:23)
[2023-04-29] MEDS: TRAMADOL HCL 50 MG TAB PO PRN (21:24)
[2023-04-30 04:11] LABS: Absolute Lymphocytes (CBC) 1.9 K/uL (0.7-4.9); Hematocrit 27.6 % (39.6-49.0); Lymphocytes % 31.4 % (15.3-44.8); MCV 89.6 fL (80-100); Platelets 184 thou/uL (152-406); RBC Red Blood Cell Count 3.08 M/uL (4.33-5.43)
[2023-04-30 04:28] LABS: Magnesium 1.7 mg/dL (1.6-2.4); Potassium 3.7 mEq/L (3.5-5.1)
[2023-04-30] MEDS: FERROUS SULFATE 325 MG TAB PO SCH (07:12)
[2023-04-30] MEDS: FE SULF/FA/VIT B COMP & C TAB PO SCH (07:12)
[2023-04-30] MEDS: THIAMINE HCL 100 MG TABLET PO SCH (07:12)
[2023-04-30] MEDS: APIXABAN 5 MG TABLET PO SCH (07:12)
[2023-04-30] MEDS: INSULIN -REGULAR HUMAN 50 UNIT/0.5 ML ML SQ SCH (07:13)
[2023-04-30] MEDS: MAGNESIUM OXIDE 400 MG TAB PO SCH (07:13)
[2023-04-30] MEDS: PANTOPRAZOLE 40MG TABLET PO SCH (07:13)
[2023-04-30] MEDS: NICOTINE 14 MG/PAT TD SCH (07:39)
[2023-04-30] MEDS: AMINO ACIDS/PROTEIN HYDROLYS 30 ML LIQUID.PKT PO SCH (07:40)
[2023-04-30] MEDS: MIDODRINE HCL 5 MG TABLET PO SCH (07:40)
[2023-04-30] MEDS ORDERED: ASCORBIC ACID 500 MG TABLET PO SCH (08:00)
[2023-04-30 09:20] VITALS: BP 153/96; TEMP 97.4
== END 2023-04-30 07:45 | disposition home health service (06) | DRG 560 ==
LOC: 5TH 10:35
PROVIDERS: ADMIT Psychiatry & Neurology Neurology with Special Qualifications in Child Neurology; ATTEND Psychiatry & Neurology Neurology with Special Qualifications in Child Neurology
PROC: 0T9B70Z Drainage of Bladder with Drainage Device, Via Natural or Artificial Opening (ICD-10-PCS; principal; 2023-04-17)
DX: Z47.81 Encounter for orthopedic aftercare following surgical amputation (principal); E87.1 Hypo-osmolality and hyponatremia; I13.0 Hypertensive heart and chronic kidney disease with heart failure and stage 1 through stage 4 chronic kidney disease, or unspecified chronic kidney disease; E11.9 Type 2 diabetes mellitus without complications; I10 Essential (primary) hypertension; I73.9 Peripheral vascular disease, unspecified; E66.9 Obesity, unspecified; G54.6 Phantom limb syndrome with pain; E78.5 Hyperlipidemia, unspecified; E11.22 Type 2 diabetes mellitus with diabetic chronic kidney disease; N18.9 Chronic kidney disease, unspecified; E11.40 Type 2 diabetes mellitus with diabetic neuropathy, unspecified; M79.10 Myalgia, unspecified site; Z89.511 Acquired absence of right leg below knee; Z68.31 Body mass index [BMI] 31.0-31.9, adult
CPT/HCPCS: 36415; 71045; 80048; 82040; 82947; 83735; 84134; 85025; 92523; 97110; 97112; 97116; 97129; 97163; 97165; 97530; 97542; J1815; J3475; J7050

== ENCOUNTER 2023-05-12 08:19 | Observation (INO) | payer BC ==
--- OUTSIDE RECORDS SUMMARY | 2023-05-12 08:27 | XMS REPORT | Continuity of Care Document ---
:1970 Author Organization [facility] t Address [address] [place] [address] [address] [place] [address] Care Team Providers Name Role Phone Arnaud Mckeon MD Primary Care Physician GERARDO MCCALL Attending Clinician Unavailable MARY SWANN Attending Clinician Unavailable ABBEY LARA Attending Clinician Unavailable [employer] [facility] Attending Clinician Unavailable [id number] Attending Clinician Unavailable SABRINA DOWNS Attending Clinician Unavailable PROVIDER, VIDEOVISITNOAlice Attending Clinician Unavailable Corrie Jones MD Attending Clinician [phone] CORRIE JONES Attending Clinician Unavailable MD LAMBERT Attending Clinician Unavailable MAGALIS ERNANDEZ Attending Clinician Unavailable TEETEE HUBBARD Attending Clinician Unavailable [facility]39 Attending Clinician Unavailable [id number] Attending Clinician Unavailable Mary Mcdonough Attending Clinician DOLLY TIERNEY Attending Clinician Unavailable EMILY WHITEHEAD Attending Clinician Unavailable MARITZA LEWIS Attending Clinician Unavailable [id number] Attending Clinician Unavailable ROSALBA FERMIN Attending Clinician Unavailable Lras Saavedra DO Attending Clinician KAYE KELLER Attending Clinician Unavailable Armin Mchugh MD Attending Clinician ARMIN MCHUGH Attending Clinician Unavailable Ogunlana DPM, Kaye A Attending Clinician [facility] Attending Clinician Unavailable Grace December Attending Clinician Nabila Collins MD Attending Clinician Doctor Unassigned, [place] Attending Clinician Unavailable FELICIA MORENO Admitting Clinician Unavailable Payers Payer Name Policy Type Policy Number Effective Date Expiration Date S ource BCBS 2 [id number] 2020 00:00:00 BCBS PPO POS EPO [id number] 2017 00:00:00 CHOICE Problems Condition Condition Condition Status Onset Resolution Last Treating Co mments Source Name Details Category Date Date Treatment Clinician Date Charcot's Charcot's Disease Active Louis sey arthropath arthropath 1-24 Se ybold y y 00:00: - associated associated 00 Ex terna with type with type l 2 diabetes 2 diabetes mellitus mellitus Chronic Chronic Disease Active Sandra infection infection 2- Seyb old 00:00: - 00 Externa l Foot ulcer Foot ulcer Disease Recurre [facility] secondary [facility]: [facility] nancy DM DM 00 Center Anemia Anemia Disease Active [facility] [place] HTN HTN Disease Active [facility] (hypertens (hypertens 1- Bebe kes ion) ion) 00:00: Medical 00 [place] HLD HLD Disease Active [facility] (hyperlipi (hyperlipi 1- Bebe kes demia) demia) 00:00: Medical 00 [place] MSSA MSSA Disease Active [facility] bacteremia bacteremia 1- Bebe kes 00:00: Medical 00 [place] Diabetes Diabetes Disease Recurre 2020-[address] [facility]ce [facility] Center Diabetic Diabetic Disease Recurre 2020-[address] [facility] [address] Charcot Charcot nce 2- [facility] foot foot 00:00: Medical 00 [place] Spondylodi Spondylodi Disease Active 2020-[address] scitis scitis 2 [facility] Epidural Epidural Disease Active 2020-[facility] abscess [facility] Center 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 5-27 Seyb old diabetes diabetes 00:00: - mellitus mellitus 00 [employer] a with with l hyperglyce hyperglyce will [...] foot foot 00:00: [place] deformity deformity 00 [facility] Diabetic Diabetic Disease Active Unive [...] foot, 3-06 ity of right right 00:00: [address] Essential Essential Disease Active 2014-09 Uni vers hypertensi hypertensi 0-06 it y of on on 00:00: [address] Erectile Erectile Disease Active 2014-09 Unive rs dysfunctio dysfunctio 0-06 it y of n, n, 00:00: [place] unspecifie unspecifie 00 Me dical d erectile d erectile Br anch dysfunctio dysfunctio n type n type Allergies, Adverse Reactions, Alerts Allergy Allergy Status Severity Reaction(s) Onset Inactive Treating Comm ents Source Name Type Date Date Clinician NO KNOWN Allergy Active [facility] ALLERGIE [facility] NO KNOWN Drug Active Univers ALLERGIE Class ity of S [facility] Family History Family Member Diagnosis Comments Start Date Stop Date Source Natural brother Alcohol abuse [facility] Natural father Cancer [facility] Social History Social Habit Start Date Stop Date Quantity Comments Source History of tobacco Cigarette Smoker [facility] Exposure to Not sure University of SARS-CoV-2 (event) [facility] Tobacco use and 2021-11-03 2021-11-03 Smokeless Sandra Se leoneold - exposure 00:00:00 00:00:00 tobacco non-user External Cigarettes smoked 2021-09-18 2021-09-18 GEORGE Henderson current (pack per 00:00:00 00:00:00 [facility] Center day) - Reported Cigarette 2021-09-18 2021-09-18 GEORGE Hnederson pack-years 00:00:00 00:00:00 [facility] Alcohol intake 2021-09-18 2021-09-18 Current drinker [facility]00 [facility] (finding) Alcohol Comment 2017-06-13 2017-06-13 4-6 beers a day Univ ersity of 00:00:00 00:00:00 [facility] Sex [birth year] At [birth year] GEORGE Clemente 00:00:00 00:00:00 Medical Center Smoking Status Start Date Stop Date Source Ex-smoker 2021-11-03 00:00:00 2021-11-03 00:00:00 Sandra tony - External Medications Ordered Filled Start Stop Current Ordering Indication Dosage Frequency Signature Comments Components Source Medication Medication Date Date Medication? Clinician (SIG) Name Name Ondansetron Yes [id number] 8mg Q.[id number] Take 2 Sandra (ZOFRAN) 4 3-27 [id number] tablets (8 Seybold MG oral 00:00: 3D mg total) - TABLET 00 by mouth Externa DISPERSIBLE every 8 l hours as needed for nausea Pantoprazol 2022-0 Yes [id number] 40mg Take 1 Sandra e Sodium 40 3-27 tablet (40 Se ybold MG oral 00:00: mg total) - Tablet 00 by mouth Externa Delayed daily l Response Amoxicillin 0 Yes [id number] 1{tbl} Take 1 Sandra -Pot 3-21 tablet by Seybold Clavulanate 00:00: mouth 2 - 875-125 MG 00 times Externa oral Tablet daily l Amoxicillin 2022-0 2022- No [id number] 1{tbl} Take 1 Sandra -Pot 3-21 -27 tablet by Seybold Clavulanate 00:00: 00:00 mouth 2 - 875-125 MG 00 :00 times Externa oral Tablet daily l Omeprazole 2022-0 Yes [id number] 20mg Take 1 Sandra 20 MG oral 3-10 capsule Seybol d Delayed 00:00: (20 mg - Release 00 total) by Externa Capsule mouth l daily Ondansetron 2022-0 Yes [id number] 4mg Q.[id number] Take 1 Sandra (ZOFRAN) 4 3-10 [id number] tablet (4 Seybold MG oral 00:00: 3D mg total) - TABLET 00 by mouth Externa DISPERSIBLE every 8 l hours as needed for nausea Doxycycline 2022-0 Yes [id number] 100mg Take 1 Sandra Hyclate 100 3-10 tablet Seybol d MG oral 00:00: (100 mg - Tablet 00 total) by Externa mouth 2 l times daily Omeprazole 2022-0 2022- No [id number] 20mg Take 1 Sandra 20 MG oral 3-10 03-27 capsule Seybo ld Delayed 00:00: 00:00 (20 mg - Release 00 :00 total) by Externa Capsule mouth l daily Ondansetron 2022-0 2022- No [id number] 4mg Q.[id number] Take 1 Sandra (ZOFRAN) 4 11-26 [id number] tablet (4 Seybold MG oral 00:00: 00:00 3D mg total) - TABLET 00 :00 by mouth Externa DISPERSIBLE every 8 l hours as needed for nausea Doxycycline 2022- No [id number] 100mg Take 1 Sandra Hyclate 100 11-26 tablet Seybo ld MG oral 00:00: 00:00 (100 mg - Tablet 00 :00 total) by Externa mouth 2 l times daily TRIMETHOPRI 2022- No [id number] 1{tbl} Take 1 Sandra M-SULFAMETH 11-17 tablet by Se ybold OXAZOLE 00:00: 00:00 mouth 2 - (BACTRIM 00 :00 times Externa DS) 800-160 daily for l MG oral 7 days Tablet TRIMETHOPRI 2022- No [id number] 1{tbl} Take 1 Sandra M-SULFAMETH 11-17 tablet by Se ybold OXAZOLE 00:00: 05:59 mouth 2 - (BACTRIM 00 :00 times Externa DS) 800-160 daily for l MG oral 7 days Tablet [place]-3 Yes [id number] TAKE 2 Louis sey Fatty Acids 2-21 CAPSULES Seyb old (GNP Fish 00:00: BY MOUTH - Oil) 1000 00 TWICE Externa MG oral DAILY l Capsule [place]-3 0 Yes [id number] TAKE 2 Lousi sey Fatty Acids 2-21 CAPSULES Seyb old (GNP Fish 00:00: BY MOUTH - Oil) 1000 00 TWICE Externa MG oral DAILY l Capsule [place]-3 0 Yes [id number] TAKE 2 Louis sey Fatty Acids 2-21 CAPSULES Seyb old (GNP Fish 00:00: BY MOUTH - Oil) 1000 00 TWICE Externa MG oral DAILY l Capsule Tirzepatide Yes [id number] 5mg Inject 0.5 Sandra (Mounjaro) 2-20 mL (5 mg Seybo ld 5 MG/0.5ML 00:00: total) - subcutaneou 00 into the Exte rna s Solution skin once l Pen-injecto a week r Apixaban Yes [id number] 2.5mg Take 1 Ke lsey (Eliquis) 2-20 tablet Seybold 2.5 MG oral 00:00: (2.5 mg - Tablet 00 total) by Externa mouth 2 l times daily Lisinopril 2022-0 Yes [id number] 20mg Take 1 K elsey 20 MG oral 2-20 tablet (20 Sey bold Tablet 00:00: mg total) - 00 by mouth Externa daily l hydroCHLORO 2022-0 Yes [id number] 25mg Take 1 Sandra thiazide 25 2-20 tablet (25 Se ybold MG oral 00:00: mg total) - Tablet 00 by mouth Externa daily l [place]-3 2022-0 Yes [id number] 2000mg Take 2 K elsey Fatty Acids 2-20 capsules Seyb old 1000 MG 00:00: (2,000 mg - oral 00 total) by Externa Capsule mouth 2 l times daily Omeprazole 2022-0 Yes [id number] 20mg Take 1 Sandra 20 MG oral 2-20 capsule Seybol d Delayed 00:00: (20 mg - Release 00 total) by Externa Capsule mouth l daily Tirzepatide 2022-0 Yes [id number] 5mg Inject 0.5 Sandra (Mounjaro) 2-20 mL (5 mg Seybo ld 5 MG/0.5ML 00:00: total) - subcutaneou 00 into the Exte rna s Solution skin once l Pen-injecto a week r Apixaban 2022-0 Yes [id number] 2.5mg Take 1 Ke lsey (Eliquis) 2-20 tablet Seybold 2.5 MG oral 00:00: (2.5 mg - Tablet 00 total) by Externa mouth 2 l times daily Lisinopril 2022-0 Yes [id number] 20mg Take 1 K elsey 20 MG oral 2-20 tablet (20 Sey bold Tablet 00:00: mg total) - 00 by mouth Externa daily l hydroCHLORO 3-0 Yes [id number] 25mg Take 1 Sandra thiazide 25 2-20 tablet (25 Se ybold MG oral 00:00: mg total) - Tablet 00 by mouth Externa daily l Omeprazole 3-0 Yes [id number] 20mg Take 1 Sandra 20 MG oral 2-20 capsule Seybol d Delayed 00:00: (20 mg - Release 00 total) by Externa Capsule mouth l daily Tirzepatide 2022-0 Yes [id number] 5mg Inject 0.5 Sandra (Mounjaro) 2-20 mL (5 mg Seybo ld 5 MG/0.5ML 00:00: total) - subcutaneou 00 into the Exte rna s Solution skin once l Pen-injecto a week r Apixaban 2022-0 Yes [id number] 2.5mg Take 1 Ke lsey (Eliquis) 2-20 tablet Seybold 2.5 MG oral 00:00: (2.5 mg - Tablet 00 total) by Externa mouth 2 l times daily Lisinopril 2022-0 Yes [id number] 20mg Take 1 K elsey 20 MG oral 2-20 tablet (20 Sey bold Tablet 00:00: mg total) - 00 by mouth Externa daily l hydroCHLORO 2022-0 Yes [id number] 25mg Take 1 Sandra thiazide 25 2-20 tablet (25 Se ybold MG oral 00:00: mg total) - Tablet 00 by mouth Externa daily l Tirzepatide 2022-0 Yes [id number] 5mg Inject 0.5 Sandra (Mounjaro) 2-20 mL (5 mg Seybo ld 5 MG/0.5ML 00:00: total) - subcutaneou 00 into the Exte rna s Solution skin once l Pen-injecto a week r Apixaban 2022-0 Yes [id number] 2.5mg Take 1 Ke lsey (Eliquis) 2-20 tablet Seybold 2.5 MG oral 00:00: (2.5 mg - Tablet 00 total) by Externa mouth 2 l times daily Lisinopril 3-0 Yes [id number] 20mg Take 1 K elsey 20 MG oral 2-20 tablet (20 Sey bold Tablet 00:00: mg total) - 00 by mouth Externa daily l hydroCHLORO 3-0 Yes [id number] 25mg Take 1 Sandra thiazide 25 2-20 tablet (25 Se ybold MG oral 00:00: mg total) - Tablet 00 by mouth Externa daily l Metformin 2022-0 Yes [id number] TAKE 2 Ke lsey HCl 500 MG 2-03 TABLETS(10 Sey bold oral Tablet 00:00: 00 MG) BY - 00 MOUTH Externa TWICE l DAILY WITH MEALS Metformin 2022-0 Yes [id number] TAKE 2 Ke lsey HCl 500 MG 2-03 TABLETS(10 Sey bold oral Tablet 00:00: 00 MG) BY - 00 MOUTH Externa TWICE l DAILY WITH MEALS Metformin 2022-0 Yes [id number] TAKE 2 Ke lsey HCl 500 MG 2-03 TABLETS(10 Sey bold oral Tablet 00:00: 00 MG) BY - 00 MOUTH Externa TWICE l DAILY WITH MEALS Metformin 2022-0 Yes [id number] TAKE 2 Ke lsey HCl 500 MG 2-03 TABLETS(10 Sey bold oral Tablet 00:00: 00 MG) BY - 00 MOUTH Externa TWICE l DAILY WITH MEALS [place]-3 2022-0 2023- No [id number] 2000mg Take 2 Sandra Fatty Acids 1-29 02-20 capsules Sey bold 1000 MG 00:00: 00:00 (2,000 mg - oral 00 :00 total) by Externa Capsule mouth 2 l times daily Amlodipine 2022-0 2023- No Take by Louis sey Besylate 10 -24 -24 mouth Seybol d MG oral 09:02: 00:00 every 24 - Tablet 12 :00 hours Externa l Fluconazole 2022-0 2023- No [id number] fluconazol Sandra 150 MG oral -24 -24 e 150 mg Sey bold Tablet 08:34: 00:00 tablet - 57 :00 Externa l Apixaban 2022-0 Yes [id number] 2.5mg Take 1 Ke lsey (Eliquis) -24 tablet Seybold 2.5 MG oral 00:00: (2.5 mg - Tablet 00 total) by Externa mouth 2 l times daily hydroCHLORO 2022-0 Yes [id number] 25mg Take 1 Sandra thiazide 25 1-24 tablet (25 Se ybold MG oral 00:00: mg total) - Tablet 00 by mouth Externa daily l Metformin 2022-0 Yes [id number] 1000mg Take 2 Sandra HCl 500 MG 1-24 tablets Seybol d oral Tablet 00:00: (1,000 mg - 00 total) by Externa mouth in l the morning and 2 tablets (1,000 mg total) in the evening. Take with meals. Lisinopril 2023-0 Yes [id number] 20mg Take 1 K elsey 20 MG oral 1-24 tablet (20 Sey bold Tablet 00:00: mg total) - 00 by mouth Externa daily l Tirzepatide Yes [id number] 2.5mg Inject 0.5 Sandra (Mounjaro) 1-24 mL (2.5 mg Sey bold 2.5 00:00: total) - MG/0.5ML 00 into the Externa subcutaneou skin once l s Solution a week Pen-injecto r Atorvastati Yes [id number] 40mg Take 1 Sandra n Calcium 1-24 tablet (40 Seyb old 40 MG oral 00:00: mg total) - Tablet 00 by mouth Externa daily l Atorvastati Yes [id number] 40mg Take 1 Sandra n Calcium 1-24 tablet (40 Seyb old 40 MG oral 00:00: mg total) - Tablet 00 by mouth Externa daily l Atorvastati 2022- No [id number] 40mg Take 1 Sandra n Calcium -24 03-01 tablet (40 Sey bold 40 MG oral 00:00: 00:00 mg total) - Tablet 00 :00 by mouth Externa daily l Apixaban 2022- No [id number] 2.5mg Take 1 K elsey (Eliquis) 10-12 02-20 tablet Seybold 2.5 MG oral 00:00: 00:00 (2.5 mg - Tablet 00 :00 total) by Externa mouth 2 l times daily hydroCHLORO 0 2022- No [id number] 25mg Take 1 Sandra thiazide 25 -24 02-20 tablet (25 S eybold MG oral 00:00: 00:00 mg total) - Tablet 00 :00 by mouth Externa daily l Lisinopril 0 2022- No [id number] 20mg Take 1 Sandra 20 MG oral -24 02-20 tablet (20 Se ybold Tablet 00:00: 00:00 mg total) - 00 :00 by mouth Externa daily l Tirzepatide 0 2022- No [id number] 2.5mg Inject 0.5 Sandra (Mounjaro) -24 02-20 mL (2.5 mg Se ybold 2.5 00:00: 00:00 total) - MG/0.5ML 00 :00 into the Externa subcutaneou skin once l s Solution a week Pen-injecto r Atorvastati 2022- No [id number] 40mg Take 1 Sandra n Calcium -24 24 tablet (40 Sey bold 40 MG oral 00:00: 00:00 mg total) - Tablet 00 :00 by mouth Externa daily l Fluconazole Yes [id number] fluconazol Sandra 150 MG oral 4-15 e 150 mg Seyb old Tablet 14:36: tablet 04 Sodium 2021- No [id number] Dakin's Ke lsey Hypochlorit 15 -15 Solution Sey bold e (Dakins, 14:35: 00:00 0.5 % full 44 :00 strength,) 0.5 % apply externally Solution Silver 2021- No [id number] SSD 1 % Ke lsey sulfADIAZIN 15 -15 topical Seyb old E (SSD) 1 % 14:35: 00:00 cream apply 32 :00 APPLY A externally 1/16 INCH Cream THICK LAYER TO ENTIRE BURN AREA TOPICALLY TWICE DAILY hydroCHLORO Yes [id number] TAKE 1 Sandra thiazide 25 4-08 TABLET(25 Sey bold MG oral 00:00: MG) BY Tablet 00 MOUTH DAILY hydroCHLORO 2022- No [id number] TAKE 1 Sandra thiazide 25 4-08 -24 TABLET(25 Se ybold MG oral 00:00: 00:00 MG) BY - Tablet 00 :00 MOUTH Externa DAILY l TRIMETHOPRI 2021- No 1{tbl} Take 1 K elsey M-SULFAMETH 4-05 -16 tablet by Se ybold OXAZOLE 00:00: 04:59 mouth 3 (Bactrim 00 :00 times DS) 800-160 daily for MG oral 10 days Tablet Ceftriaxone 2021- No [id number] 2g K elsey (ROCEPHIN) 2-15 -15 Seybold injection 20:30: 21:10 00 :00 Ceftriaxone 2021- No [id number] 2g 2 g, K elsey (ROCEPHIN) 11-03 intramuscu Se ybold injection 20:30: 21:10 lar, ONCE, 00 :00 1 dose, On Tue11/03/21 at 1430
Fo r IM preparatio n, each 1 gram vial diluted with 2.1 mL 1% lidocaine to make 350 mg/mL. Inject desired dose IM.
Levofloxaci 2021- No [id number] 100mL 100 mL Sandra n in 11-03 every 24 Seybold Dextrose 5 14:17: 00:00 hours % 20 :00 (LEVAQUIN) 500 MG/100ML intravenous Solution Amoxicillin 2021- No [id number] amoxicilli Sandra -Pot 11-03 n 875 Seybold Clavulanate 14:17: 00:00 mg-potassi 875-125 MG 20 :00 um oral Tablet clavulanat e 125 mg tablet TAKE 1 TABLET BY MOUTH EVERY 12 HOURS Sodium Yes [id number] Dakin's Louis sey Hypochlorit 2-15 Solution Seyb old e (Dakins, 13:16: 0.5 % full 01 strength,) 0.5 % apply externally Solution Silver Yes [id number] SSD 1 % Louis sey sulfADIAZIN 2-15 topical Seybo ld E (SSD) 1 % 13:16: cream apply 01 APPLY A externally 1/16 INCH Cream THICK LAYER TO ENTIRE BURN AREA TOPICALLY TWICE DAILY Fluconazole Yes [id number] fluconazol Sandra 150 MG oral 2-15 e 150 mg Seyb old Tablet 13:16: tablet 01 TRIMETHOPRI 2021- No [id number] 1{tbl} Take 1 Sandra M-SULFAMETH -07 11-06 tablet by Se ybold OXAZOLE 00:00: 05:59 mouth 2 800-160 MG 00 :00 times oral Tablet daily for 10 days TRIMETHOPRI Yes [id number] sulfametho Sandra M-SULFAMETH 2- xazole 800 Se ybold OXAZOLE 08:50: mg-trimeth 800-160 MG 14 oprim 160 oral Tablet mg tablet TAKE 1 TABLET BY MOUTH EVERY 12 HOURS FOR 5 DAYS Sodium Yes [id number] Dakin's Louis sey Hypochlorit - Solution Seyb old e (Dakins, 08:50: 0.5 % full 14 strength,) 0.5 % apply externally Solution Silver Yes [id number] SSD 1 % Louis sey sulfADIAZIN 10-20 topical Seybo ld E (SSD) 1 % 08:50: cream apply 14 APPLY A externally 1/16 INCH Cream THICK LAYER TO ENTIRE BURN AREA TOPICALLY TWICE DAILY Levofloxaci Yes [id number] 100mL 100 mL Sandra n in - every 24 Seybold Dextrose 5 08:50: hours % 14 (LEVAQUIN) 500 MG/100ML intravenous Solution Fluconazole Yes [id number] fluconazol Sandra 150 MG oral 10-20 e 150 mg Seyb old Tablet 08:50: tablet 14 Amoxicillin Yes [id number] amoxicilli Sandra -Pot 10-20 n 875 Seybold Clavulanate 08:50: mg-potassi 875-125 MG 14 um oral Tablet clavulanat e 125 mg tablet TAKE 1 TABLET BY MOUTH EVERY 12 HOURS Cyclobenzap Yes [id number] 10mg Q.[id number] Take 1 Sandra rine HCl 10 10-20 [id number] tablet (10 Seybold MG oral 00:00: 3D mg total) Tablet 00 by mouth 3 times daily as needed for muscle spasms Sennosides Yes [id number] 1{tbl} Take 1 Sandra (Senna) 8.6 10-20 9102 tablet by Sey bold MG oral 00:00: mouth 2 Tablet 00 times daily Metformin Yes [id number] 1000mg Take 2 Sandra HCl 500 MG 2- tablets Seybol d oral Tablet 00:00: (1,000 mg 00 total) by mouth 2 times daily (with meals) Dulaglutide Yes [id number] 1.5mg Inject 1.5 Sandra (Trulicity) 2-01 mg into Seybo ld 1.5 00:00: the skin MG/0.5ML 00 once a subcutaneou week s Solution Pen-injecto r Metformin Yes [id number] 1000mg Take 2 Sandra HCl 500 MG 2-01 tablets Seybol d oral Tablet 00:00: (1,000 mg 00 total) by mouth 2 times daily (with meals) Dulaglutide Yes [id number] 1.5mg Inject 1.5 Sandra (Trulicity) 2-01 mg into Seybo ld 1.5 00:00: the skin MG/0.5ML 00 once a subcutaneou week s Solution Pen-injecto r Cyclobenzap Yes [id number] 10mg Q.[id number] Take 1 Sandra rine HCl 10 10-20 [id number] tablet (10 Seybold MG oral 00:00: 3D mg total) Tablet 00 by mouth 3 times daily as needed for muscle spasms Sennosides Yes [id number] 1{tbl} Take 1 Sandra (Senna) 8.6 10-20 9102 tablet by Sey bold MG oral 00:00: mouth 2 Tablet 00 times daily Metformin Yes [id number] 1000mg Take 2 Sandra HCl 500 MG 2-01 tablets Seybol d oral Tablet 00:00: (1,000 mg 00 total) by mouth 2 times daily (with meals) Dulaglutide Yes [id number] 1.5mg Inject 1.5 Sandra (Trulicity) 2-01 mg into Seybo ld 1.5 00:00: the skin MG/0.5ML 00 once a subcutaneou week s Solution Pen-injecto r Metformin 2021-0 2022- No [id number] 1000mg Take 2 Sandra HCl 500 MG 2-01 01-24 tablets Seybo ld oral Tablet 00:00: 00:00 (1,000 mg - 00 :00 total) by Externa mouth 2 l times daily (with meals) Dulaglutide 2021-0 2022- No [id number] 1.5mg Inject 1.5 Sandra (Trulicity) 2-01 01-24 mg into Seyb old 1.5 00:00: 00:00 the skin - MG/0.5ML 00 :00 once a Externa subcutaneou week l s Solution Pen-injecto r Cyclobenzap 2021-0 2022- No [id number] 10mg Q.[id number] Take 1 Sandra rine HCl 10 2- 04-15 [id number] tablet (10 Seybold MG oral 00:00: 00:00 3D mg total) Tablet 00 :00 by mouth 3 times daily as needed for muscle spasms Sennosides 2021- No [id number] 1{tbl} Take 1 Sandra (Senna) 8.6 10-20 9102 tablet by Se ybold MG oral 00:00: 00:00 mouth 2 Tablet 00 :00 times daily SSD 1 % Yes [id number] APPLY A Ke lsey apply 10-07/16 INCH Seybold externally 00:00: THICK Cream 00 LAYER TO ENTIRE BURN AREA TOPICALLY TWICE DAILY SSD 1 % Yes [id number] APPLY A Ke lsey apply 10-07/16 INCH Seybold externally 00:00: THICK Cream 00 LAYER TO ENTIRE BURN AREA TOPICALLY TWICE DAILY SSD 1 % 2021- No [id number] APPLY A K elsey apply 10-07/16 INCH Seybold externally 00:00: 00:00 THICK Cream 00 :00 LAYER TO ENTIRE BURN AREA TOPICALLY TWICE DAILY dapaglifloz Yes 5mg Take [address] in -07 [facility] 5 18:24: Medica l mg tablet 37 [...] 18:24: tablet Medic al MG tablet 37 [place] dapaglifloz 0 Yes 5mg Take [address] in 1-07 by mouth. [facility] 5 18:24: Medica l mg tablet 37 [place] lisinopriL Yes lisinopril [facility] (PRINIVIL,Z 1-07 20 mg [facility] ESTRIL) 20 18:24: tablet Medic al MG tablet 37 [place] collagenase Yes Santyl [address] [facility] (SantyL) 1-07 unit/gram [facility] 250 units/g 18:24: topical Med ical ointment 37 ointment Center Apply a nickel thick layer (2 mm) to wound daily as directed. dapaglifloz Yes 5mg Take [address] in 07 by mouth. [facility] 5 18:24: Medica l mg tablet 37 [place] collagenase Yes Santyl [address] [facility] (SantyL) 1-07 unit/gram [facility] 250 units/g 18:24: topical Med ical ointment 37 ointment Center Apply a nickel thick layer (2 mm) to wound daily as directed. lisinopriL Yes lisinopril [facility] (PRINIVIL,Z 1-07 20 mg [facility] ESTRIL) 20 18:24: tablet Medic al MG tablet 37 [place] Sodium 2021-0 2021- No [id number] 10mL 10 mL as K elsey chloride 09-25 needed Seybold flush 0.9 % 00:00: 05:59 intravenous 00 :00 Solution Heparin 2021-0 2021- No [id number] 300U 300 units Sandra Sodium Lock 09-25 as needed Se ybold Flush 100 00:00: 05:59 UNIT/ML 00 :00 intravenous Solution Morphine Yes [id number] morphine Sandra Sulfate ER 1-06 ER 15 mg Seybo ld 15 MG oral 00:00: tablet,ext Tab CR 00 ended release Morphine Yes [id number] morphine Sandra Sulfate ER -06 ER 15 mg Seybo ld 15 MG oral 00:00: tablet,ext Tab CR 00 ended release Morphine 2021- No [id number] morphine Sandra Sulfate ER 09-24 04-15 ER 15 mg Seyb old 15 MG oral 00:00: 00:00 tablet,ext Tab CR 00 :00 ended release ceFAZolin 0 2021- No [id number] 2g Inject 2 g Sandra Sodium-Dext 09-24 into the Sey bold stefania 2-4 00:00: 05:59 vein GM/100ML-% 00 :00 intravenous Solution levoFLOXaci 2020-09 Yes [id number] TAKE 1 Sandra n 750 MG 12 TABLET BY Seybol d oral Tablet 00:00: MOUTH 00 EVERY DAY UNTIL ALL TAKEN levoFLOXaci 2020-09- No [id number] TAKE 1 Sandra n 750 MG 09-30 TABLET BY Seybo ld oral Tablet 00:00: 00:00 MOUTH 00 :00 EVERY DAY UNTIL ALL TAKEN Becaplermin Yes [id number] Apply 1 Sandra (Regranex) 04-16 applicatio Sey bold 0.01 % 00:00: n apply 00 topically externally daily Gel Becaplermin Yes [id number] Apply 1 Sandra (Regranex) 04-16 applicatio Sey bold 0.01 % 00:00: n apply 00 topically externally daily Gel Doxycycline Yes [id number] 100mg Take 1 Sandra Hyclate 100 04-16 tablet Seybol d MG oral 00:00: (100 mg Tablet 00 total) by mouth 2 times daily Becaplermin Yes [id number] Apply 1 Sandra (Regranex) 04-16 applicatio Sey bold 0.01 % 00:00: n apply 00 topically externally daily Gel levoFLOXaci Yes [id number] 500mg Take 1 Sandra n 04-16 tablet Seybold (Levaquin) 00:00: (500 mg 500 MG oral 00 total) by Tablet mouth daily becaplermin Yes [facility]. [facility] 0.01 % gel 00:00: Medical 00 Center becaplermin Yes [facility] (Regranex[facility] 04-16 topically. [facility] es 0.01 % gel 00:00: Medical 00 [place] becaplermin Yes Apply [facility] (Regranex[facility] 04-16 topically. [facility] es 0.01 % gel 00:00: Medical 00 [place] becaplermin Yes Apply [facility] (Regranex) 04-16 topically. Baron es 0.01 % gel 00:00: Medical 00 [place] Becaplermin 2022- No [id number] Apply 1 Sandra (Regranex) 04-16 applicatio Se ybold 0.01 % 00:00: 00:00 n - apply 00 :00 topically Externa externally daily l Gel Doxycycline 2021- No [id number] 100mg Take 1 Sandra Hyclate 100 04-16 02-15 tablet Seybo ld MG oral 00:00: 00:00 (100 mg Tablet 00 :00 total) by mouth 2 times daily levoFLOXaci 2021- No [id number] 500mg Take 1 Sandra n 04-16 02-15 tablet Seybold (Levaquin) 00:00: 00:00 (500 mg 500 MG oral 00 :00 total) by Tablet mouth daily insulin Yes [address] [facility] lispro 5-27 SQ before [facility] protamine-i 00:00: breakfast M edical nsulin 00 and 15 Center lispro units SQ (HumaLOG before Mix supper 75-25,U-100 meal ,Insuln) 100 unit/mL (75-25) Susp injection dulaglutide Yes 1.5mg Inject 1.[address] [facility] (Trulicity) 5-27 mg [facility] 1.5 mg/0.5 00:00: subcutaneo M edical mL PnIj 00 usly. [place] Insulin Yes [id number] Takes Pamela ey Syringe-Nee 5-27 insulin Seybo ld dle U-100 00:00: BID 30G X 16" 00 0.5 ML does not apply Misc Insulin Yes [id number] Takes Pamela ey Syringe-Nee 5-27 insulin Seybo ld dle U-100 00:00: BID - 30G X 516" 00 Externa 0.5 ML does l not apply Misc Insulin 0 Yes [id number] Takes Pamela ey Syringe-Nee 5-27 insulin Seybo ld dle U-100 00:00: BID - 30G X 02/01" 00 Externa 0.5 ML does l not apply Misc Insulin 0 Yes [id number] Takes Pamela ey Syringe-Nee 5-27 insulin Seybo ld dle U-100 00:00: BID - 30G X 02/01" 00 Externa 0.5 ML does l not apply Misc Insulin 0 Yes [id number] Takes Pamela ey Syringe-Nee 5-27 insulin Seybo ld dle U-100 00:00: BID - 30G X 02/01" 00 Externa 0.5 ML does l not apply Misc Insulin 0 Yes [id number] Takes Pamela ey Syringe-Nee 5-27 insulin Seybo ld dle U-100 00:00: BID - 30G X 02/01" 00 Externa 0.5 ML does l not apply Misc HUMALOG MIX 0 Yes [id number] 20 units Sandra 75/25 5-27 SQ before Seybold (75-25) 100 00:00: breakfast UNIT/ML SC 00 and 15 SUSP units SQ before supper meal Insulin 0 Yes [id number] Takes Pamela ey Syringe-Nee 5-27 insulin Seybo ld dle U-100 00:00: BID 30G X 02/01" 00 0.5 ML does not apply Misc HUMALOG MIX 0 Yes [id number] 20 units Sandra 75/25 5-27 SQ before Seybold (75-25) 100 00:00: breakfast UNIT/ML SC 00 and 15 SUSP units SQ before supper meal Insulin 0 Yes [id number] Takes Pamela ey Syringe-Nee 5-27 insulin Seybo [...] 30 00 Center gauge x 5/16" Syrg HUMALOG MIX 2021- No [id number] 20 units Sandra 75/25 5-27 04-15 SQ before Seybold (75-25) 100 00:00: 00:00 breakfast UNIT/ML SC 00 :00 and 15 SUSP units SQ before supper meal Dulaglutide 2021- No [id number] 1.5mg Inject 1.5 Sandra (Trulicity) 02-12 02-01 mg into Seyb old 1.5 00:00: 00:00 the skin MG/0.5ML 00 :00 once a subcutaneou week s Solution Pen-injecto r Lisinopril Yes [id number] 40mg Take 1 K elsey 40 MG oral 4-13 tablet (40 Sey bold Tablet 00:00: mg total) 00 by mouth daily Lisinopril Yes [id number] 40mg Take 1 K elsey 40 MG oral 4-13 tablet (40 Sey bold Tablet 00:00: mg total) 00 by mouth daily Lisinopril Yes [id number] 40mg Take 1 K elsey 40 MG oral 4-13 tablet (40 Sey bold Tablet 00:00: mg total) 00 by mouth daily Lisinopril 2022- No [id number] 40mg Take 1 Sandra 40 MG oral 4-13 01-24 tablet (40 Se ybold Tablet 00:00: 00:00 mg total) - 00 :00 by mouth Externa daily l Metformin 2021- No [id number] 1000mg Take 2 Sandra HCl 500 MG 4-13 02-01 tablets Seybo ld oral Tablet 00:00: 00:00 (1,000 mg 00 :00 total) by mouth 2 times daily (with meals) sildenafiL Yes 100mg Take [address] [facility] (VIAGRA) 4-08 mg by [facility] 100 MG 00:00: mouth. Medical tablet 00 [place] atorvastati Yes atorvastat [facility] (LIPITOR) 4-08 in 40 mg Luke s 40 MG 00:00: tablet Medical tablet 00 [place] sildenafiL Yes 100mg Take [address] [facility] [address] [facility] (VIAGRA) 4-08 mg by [facility] 100 MG 00:00: mouth. Medical tablet 00 [place] atorvastati Yes atorvastat [facility] (LIPITOR) 4-08 in 40 mg Luke s 40 MG 00:00: tablet Medical tablet 00 [place] sildenafiL Yes 100mg Take [address] [facility] [address] [facility] (VIAGRA) 4-08 mg by [facility] 100 MG 00:00: mouth. Medical tablet 00 [place] atorvastati Yes atorvastat [facility] (LIPITOR) 4-08 in 40 mg Luke s 40 MG 00:00: tablet Medical tablet 00 [place] Apixaban Yes [id number] 2.5mg Take 1 Ke [facility] (Eliquis) 4-08 tablet Seybold 2.5 MG oral 00:00: (2.5 mg Tablet 00 total) by mouth 2 times daily Sildenafil Yes [id number] 100mg Take 1 Sandra Citrate 100 4-08 tablet Seybol d MG oral 00:00: (100 mg Tablet 00 total) by mouth as needed for erectile dysfunctio n Atorvastati Yes [id number] 40mg Take 1 Sandra n Calcium 4-08 tablet (40 Seyb old 40 MG oral 00:00: mg total) Tablet 00 by mouth daily Sildenafil Yes [id number] 100mg Take 1 Sandra Citrate 100 4-08 tablet Seybol d MG oral 00:00: (100 mg - Tablet 00 total) by Externa mouth as l needed for erectile dysfunctio n Sildenafil Yes [id number] 100mg Take 1 Sandra Citrate 100 4-08 tablet Seybol d MG oral 00:00: (100 mg - Tablet 00 total) by Externa mouth as l needed for erectile dysfunctio n Sildenafil Yes [id number] 100mg Take 1 Sandra Citrate 100 4-08 tablet Seybol d MG oral 00:00: (100 mg - Tablet 00 total) by Externa mouth as l needed for erectile dysfunctio n Sildenafil Yes [id number] 100mg Take 1 Sandra Citrate 100 4-08 tablet Seybol d MG oral 00:00: (100 mg - Tablet 00 total) by Externa mouth as l needed for erectile dysfunctio n hydroCHLORO Yes [id number] 25mg Take 1 Sandra thiazide 25 4-08 tablet (25 Se ybold MG oral 00:00: mg total) Tablet 00 by mouth daily Sildenafil Yes [id number] 100mg Take 1 Sandra Citrate 100 4-08 tablet Seybol d MG oral 00:00: (100 mg - Tablet 00 total) by Externa mouth as l needed for erectile dysfunctio n Apixaban Yes [id number] 2.5mg Take 1 [place] [facility] (Eliquis) 4-08 tablet Seybold 2.5 MG oral 00:00: (2.5 mg Tablet 00 total) by mouth 2 times daily Sildenafil Yes [id number] 100mg Take 1 Sandra Citrate 100 4-08 tablet Seybol d MG oral 00:00: (100 mg Tablet 00 total) by mouth as needed for erectile dysfunctio n Atorvastati Yes [id number] 40mg Take 1 Sandra n Calcium 4-08 tablet (40 Seyb old 40 MG oral 00:00: mg total) Tablet 00 by mouth daily Collagenase Yes [id number] Apply 1 Sandra (Santyl) 4-08 applicatio Seybo ld 250 UNIT/GM 00:00: n apply 00 topically externally daily Ointment hydroCHLORO Yes [id number] 25mg Take 1 Sandra thiazide 25 4-08 tablet (25 Se ybold MG oral 00:00: mg total) Tablet 00 by mouth daily Apixaban Yes [id number] 2.5mg Take 1 Ke [facility] (Eliquis) 4-08 tablet Seybold 2.5 MG oral 00:00: (2.5 mg Tablet 00 total) by mouth 2 times daily Sildenafil Yes [id number] 100mg Take 1 Sandra Citrate 100 4-08 tablet Seybol d MG oral 00:00: (100 mg Tablet 00 total) by mouth as needed for erectile dysfunctio n Atorvastati Yes [id number] 40mg Take 1 Sandra n Calcium 4-08 tablet (40 Seyb old 40 MG oral 00:00: mg total) Tablet 00 by mouth daily Collagenase Yes [id number] Apply 1 Sandra (Santyl) 4-08 applicatio Seybo ld 250 UNIT/GM 00:00: n apply 00 topically externally daily Ointment atorvastati Yes [facility]orvastat [facility] (LIPITOR) 08 in 40 mg Luke s 40 MG 00:00: tablet Medical tablet [address] [place] [address] sildenafiL Yes 100mg Take [address] (VIAGRA) 4-08 mg by [facility] 100 MG 00:00: mouth. Medical tablet [address] [place] [address] Apixaban 2022- No [id number] 2.5mg Take 1 K elsey (Eliquis) 12-25 tablet Seybold 2.5 MG oral 00:00: 00:00 (2.5 mg - Tablet 00 :00 total) by Externa mouth 2 l times daily Atorvastati 2022- No [id number] 40mg Take 1 Sandra n Calcium 12-25 tablet (40 Sey bold 40 MG oral 00:00: 00:00 mg total) - Tablet 00 :00 by mouth Externa daily l Collagenase 2021- No [id number] Apply 1 Sandra (Santyl) 12-25 04-15 applicatio [...] nivers in 10-11 by mouth. ity of (XIGA) 5 19:20: [place] mg tablet 18 Medical Branch dapaglifloz 2019- Yes 5mg Take 5 mg U nivers in 10-11 by mouth. ity of (XIGA) 5 19:20: [place] mg tablet 18 Medical [...] Univers (NS) 0-18 ity of injection 17:12: [place] [address] [place] [address] NaCl 0.9% 2016-09 Yes 10mL Univers (NS) 0-18 ity of injection 17:12: [place] [address] [place] [address] NaCl 0.9% 2016-09 Yes 10mL Univers (NS) 0-18 ity of injection 17:12: [place] [address] [place] [address] NaCl 0.9% 2016-09 Yes 10mL Univers (NS) 0-18 ity of injection 17:12: [place] [address] [place] [address] NaCl 0.9% 2016-09 Yes 10mL Univers (NS) 0-18 ity of injection 17:12: [place] [address] [place] [address] NaCl 0.9% 2016-09 Yes 10mL Univers (NS) 0-18 ity of injection 17:12: [place] [address] [place] [address] NaCl 0.9% 2016-09 Yes 10mL Univers (NS) 0-18 ity of injection 17:12: [address] amLODIPine 2016-09 Yes [id number] 10mg Take 1 U nivers 10 mg 0-16 tablet by ity of tablet 00:00: mouth [place] 00 daily. Medical Branch insulin 2016-09 Yes [id number] 40U inject 40 U nivers glargine 0-16 Units ity of 100 unit/mL 00:00: [place] injection 00 skin at Medical bedtime. Branch blood sugar 2016-09 Yes [id number] Use TID, Univers diagnostic 0-16 DX E11.9 ity o f strip 00:00: ([facility] 00 upon [facility] approval) lancets-blo 2016-09 Yes [id number] 1{each} 1 Each 2 Univers od glucose 0-16 (two) ity of strips 30 00:00: times [place] gauge Cmpk 00 daily. Medical Branch Blood-Gluco 2016-09 Yes [id number] Use TID, Univers se Meter 0-16 DX E11.9 ity of Kit 00:00: ([facility] 00 upon [facility] approval) sildenafil 2016-09 Yes [id number] Take 1 Tab Univers 25 mg 0-16 PO Daily 1 ity of tablet 00:00: hr (range: [place] 00 30 min - 4 Medical hrs) Branch before sexual activity as needed metFORMIN 2016-09 Yes [id number] 1000mg Take 2 [facility] 500 mg 0-16 tablets by ity of tablet 00:00: mouth 2 [place] 00 (two) Medical times Branch daily with meals. hydroCHLORO 2016-09 Yes [id number] 25mg Take 1 [facility] thiazide 25 0-16 tablet by ity of mg tablet 00:00: mouth [place] 00 daily. Medical Branch lisinopril 2016-09 Yes [id number] 5mg Take 1 U nivers 5 mg tablet 0-16 tablet by ity of 00:00: mouth [place] 00 daily. Medical Branch amLODIPine 2016-09 Yes [id number] 10mg Take 1 U nivers 10 mg 0-16 tablet by ity of tablet 00:00: mouth [place] 00 daily. Medical Branch insulin 2016-09 Yes [id number] 40U inject 40 U nivers glargine 0-16 Units ity of 100 unit/mL 00:00: [place] injection 00 skin at Medical bedtime. Branch blood sugar 2016-09 Yes [id number] Use TID, Univers diagnostic 0-16 DX E11.9 ity o f strip 00:00: ([address] approval) lancets-blo 2016-09 Yes [id number] 1{each} 1 Each 2 Univers od glucose 0-16 (two) ity of strips 30 00:00: times [place] gauge Cmpk 00 daily. Medical Branch Blood-Gluco 2016-09 Yes [id number] Use TID, Univers se Meter 0-16 DX E11.9 ity of Kit 00:00: ([address] approval) sildenafil 2016-09 Yes [id number] Take 1 Tab [facility] 25 mg 0-16 PO Daily 1 ity of tablet 00:00: hr (range: [place] 00 30 min - 4 Medical hrs) Branch before sexual activity as needed metFORMIN 2016-09 Yes [id number] 1000mg Take 2 [facility] 500 mg 0-16 tablets by ity of tablet 00:00: mouth 2 [place] 00 (two) Medical times Branch daily with meals. hydroCHLORO 2016-09 Yes [id number] 25mg Take 1 [facility] thiazide 25 0-16 tablet by ity of mg tablet 00:00: mouth [place] 00 daily. Medical Branch lisinopril 2016-09 Yes [id number] 5mg Take 1 U nivers 5 mg tablet 0-16 tablet by ity of 00:00: mouth [place] 00 daily. Medical Branch amLODIPine 2016-09 Yes [id number] 10mg Take 1 U nivers 10 mg 0-16 tablet by ity of tablet 00:00: mouth [place] 00 daily. Medical Branch insulin 2016-09 Yes [id number] 40U inject 40 U nivers glargine 0-16 Units ity of 100 unit/mL 00:00: [place] injection 00 skin at Medical bedtime. Branch blood sugar 2016-09 Yes [id number] Use TID, [facility] diagnostic 0-16 DX E11.9 ity o f strip 00:00: ([facility] upon [facility] Branch approval) lancets-blo 2016-09 Yes [id number] 1{each} 1 Each 2 Univers od glucose 0-16 (two) ity of strips 30 00:00: times [place] gauge Cmpk 00 daily. Medical Branch Blood-Gluco 2016-09 Yes [id number] Use TID, Univers se Meter 0-16 DX E11.9 ity of Kit 00:00: ([facility] upon [facility] Branch approval) sildenafil 2016-09 Yes [id number] Take 1 Tab [facility] 25 mg 0-16 PO Daily 1 ity of tablet 00:00: hr (range: [place] 00 30 min - 4 Medical hrs) Branch before sexual activity as needed metFORMIN 2016-09 Yes [id number] 1000mg Take 2 [facility] 500 mg 0-16 tablets by ity of tablet 00:00: mouth 2 [place] 00 (two) Medical times Branch daily with meals. hydroCHLORO 2016-09 Yes [id number] 25mg Take 1 [facility] thiazide 25 0-16 tablet by ity of mg tablet 00:00: mouth [place] 00 daily. Medical Branch lisinopril 2016-09 Yes [id number] 5mg Take 1 U nivers 5 mg tablet 0-16 tablet by ity of 00:00: mouth [place] 00 daily. Medical Branch amLODIPine 2016-09 Yes [id number] 10mg Take 1 U nivers 10 mg 0-16 tablet by ity of tablet 00:00: mouth [place] 00 daily. Medical Branch insulin 2016-09 Yes [id number] 40U inject 40 U nivers glargine 0-16 Units ity of 100 unit/mL 00:00: [place] injection 00 skin at Medical bedtime. Branch blood sugar 2016-09 Yes [id number] Use TID, Univers diagnostic 0-16 DX E11.9 ity o f strip 00:00: ([facility] upon [facility] Branch approval) lancets-blo 2016-09 Yes [id number] 1{each} 1 Each 2 Univers od glucose 0-16 (two) ity of strips 30 00:00: times [place] gauge Cmpk 00 daily. Medical Branch Blood-Gluco 2016-09 Yes [id number] Use TID, Univers se Meter 0-16 DX E11.9 ity of Kit 00:00: ([address] approval) sildenafil 2016-09 Yes [id number] Take 1 Tab [facility] 25 mg 0-16 PO Daily 1 ity of tablet 00:00: hr (range: [place] 00 30 min - 4 Medical hrs) Branch before sexual activity as needed metFORMIN 2016-09 Yes [id number] 1000mg Take 2 [facility] 500 mg 0-16 tablets by ity of tablet 00:00: mouth 2 [place] 00 (two) Medical times Branch daily with meals. hydroCHLORO 2016-09 Yes [id number] 25mg Take 1 [facility] thiazide 25 0-16 tablet by ity of mg tablet 00:00: mouth [place] 00 daily. Medical Branch lisinopril 2016-09 Yes [id number] 5mg Take 1 U nivers 5 mg tablet 0-16 tablet by ity of 00:00: mouth [place] 00 daily. Medical Branch amLODIPine 2016-09 Yes [id number] 10mg Take 1 U nivers 10 mg 0-16 tablet by ity of tablet 00:00: mouth [place] 00 daily. Medical Branch insulin 2016-09 Yes [id number] 40U inject 40 U nivers glargine 0-16 Units ity of 100 unit/mL 00:00: [place] injection 00 skin at Medical bedtime. Branch blood sugar 2016-09 Yes [id number] Use TID, Univers diagnostic 0-16 DX E11.9 ity o f strip 00:00: ([address] approval) lancets-blo 2016-09 Yes [id number] 1{each} 1 Each 2 Univers od glucose 0-16 (two) ity of strips 30 00:00: times [place] gauge Cmpk 00 daily. Medical Branch sildenafil 2016-09 Yes [id number] Take 1 Tab [facility] 25 mg 0-16 PO Daily 1 ity of tablet 00:00: hr (range: [place] 00 30 min - 4 Medical hrs) Branch before sexual activity as needed Blood-Gluco 2016-09 Yes [id number] Use TID, Univers se Meter 0-16 DX E11.9 ity of Kit 00:00: ([address] Branch approval) sildenafil 2016-09 Yes [id number] Take 1 Tab [facility] 25 mg 0-16 PO Daily 1 ity of tablet 00:00: hr (range: [place] 00 30 min - 4 Medical hrs) Branch before sexual activity as needed metFORMIN 2016-09 Yes [id number] 1000mg Take 2 [facility] 500 mg 0-16 tablets by ity of tablet 00:00: mouth 2 [place] 00 (two) Medical times Branch daily with meals. metFORMIN 2016-09 Yes [id number] 1000mg Take 2 [facility] 500 mg 0-16 tablets by ity of tablet 00:00: mouth 2 [place] 00 (two) Medical times Branch daily with meals. hydroCHLORO 2016-09 Yes [id number] 25mg Take 1 [facility] thiazide 25 0-16 tablet by ity of mg tablet 00:00: mouth [place] 00 daily. Medical Branch lisinopril 2016-09 Yes [id number] 5mg Take 1 U nivers 5 mg tablet 0-16 tablet by ity of 00:00: mouth [place] 00 daily. Medical Branch amLODIPine 2016-09 Yes [id number] 10mg Take 1 U nivers 10 mg 0-16 tablet by ity of tablet 00:00: mouth [place] 00 daily. Medical Branch insulin 2016-09 Yes [id number] 40U inject 40 U nivers glargine 0-16 Units ity of 100 unit/mL 00:00: [place] the [place] injection 00 skin at Medical bedtime. Branch blood sugar 2016-09 Yes [id number] Use TID, Univers diagnostic 0-16 DX E11.9 ity o f strip 00:00: ([address] approval) lancets-blo 2016-09 Yes [id number] 1{each} 1 Each 2 Univers od glucose 0-16 (two) ity of strips 30 00:00: times [place] gauge Cmpk 00 daily. Medical Branch Blood-Gluco 2016-09 Yes [id number] Use TID, Univers se Meter 0-16 DX E11.9 ity of Kit 00:00: ([address] approval) hydroCHLORO 2016-09 Yes [id number] 25mg Take 1 [facility] thiazide 25 0-16 tablet by ity of mg tablet 00:00: mouth [place] 00 daily. Medical Branch sildenafil 2016-09 Yes [id number] Take 1 Tab [facility] 25 mg 0-16 PO Daily 1 ity of tablet 00:00: hr (range: [place] 00 30 min - 4 Medical hrs) Branch before sexual activity as needed metFORMIN 2016-09 Yes [id number] 1000mg Take 2 [facility] 500 mg 0-16 tablets by ity of tablet 00:00: mouth 2 [place] 00 (two) Medical times Branch daily with meals. hydroCHLORO 2016-09 Yes [id number] 25mg Take 1 Univers thiazide 25 0-16 tablet by ity of mg tablet 00:00: mouth [place] 00 daily. Medical Branch lisinopril 2016-09 Yes [id number] 5mg Take 1 U nivers 5 mg tablet 0-16 tablet by ity of 00:00: mouth [place] 00 daily. Medical Branch lisinopril 2016-09 Yes [id number] 5mg Take 1 U nivers 5 mg tablet 0-16 tablet by ity of 00:00: mouth [place] 00 daily. Medical Branch amLODIPine 2016-09 Yes [id number] 10mg Take 1 U nivers 10 mg 0-16 tablet by ity of tablet 00:00: mouth [place] 00 daily. Medical Branch insulin 2016-09 Yes [id number] 40U inject 40 U nivers glargine 0-16 Units ity of 100 unit/mL 00:00: [place] injection 00 skin at Medical bedtime. Branch blood sugar 2016-09 Yes [id number] Use TID, Univers diagnostic 0-16 DX E11.9 ity o f strip 00:00: ([address] Branch approval) lancets-blo 2016-09 Yes [id number] 1{each} 1 Each 2 Univers od glucose 0-16 (two) ity of strips 30 00:00: times [place] gauge Cmpk 00 daily. Medical Branch Blood-Gluco 2016-09 Yes [id number] Use TID, Univers se Meter 0-16 DX E11.9 ity of Kit 00:00: ([address] approval) amLODIPine 2016-09 Yes [id number] 10mg Take 1 U nivers 10 mg 0-16 tablet by ity of tablet 00:00: mouth [place] 00 daily. Medical Branch sildenafil 2016-09 Yes [id number] Take 1 Tab [facility] 25 mg 0-16 PO Daily 1 ity of tablet 00:00: hr (range: [place] 00 30 min - 4 Medical hrs) Branch before sexual activity as needed metFORMIN 2016-09 Yes [id number] 1000mg Take 2 [facility] 500 mg 0-16 tablets by ity of tablet 00:00: mouth 2 [place] 00 (two) Medical times Branch daily with meals. hydroCHLORO 2016-09 Yes [id number] 25mg Take 1 Univers thiazide 25 0-16 tablet by ity of mg tablet 00:00: mouth [place] 00 daily. [facility] Branch lisinopril 2016-09 Yes [id number] 5mg Take 1 U nivers 5 mg tablet 0-16 tablet by ity of 00:00: mouth [place] 00 daily. [facility] Branch amLODIPine 2016-09 Yes [id number] 10mg Take 1 U nivers 10 mg 0-16 tablet by ity of tablet 00:00: mouth [place] 00 daily. [facility] Branch insulin 2016-09 Yes [id number] 40U inject 40 U nivers glargine 0-16 Units ity of 100 unit/mL 00:00: [place] the [place] injection 00 skin at Medical bedtime. [place] insulin 2016-09 Yes [id number] 40U inject 40 U nivers glargine 0-16 Units ity of 100 unit/mL 00:00: under the [place] injection 00 skin at Medical bedtime. [place] blood sugar 2016-09 Yes [id number] Use TID, Univers diagnostic 0-16 DX E11.9 ity o f strip 00:00: ([place] [address] upon [facility] approval) lancets-blo 2016-09 Yes [id number] 1{each} 1 Each 2 Univers od glucose 0-16 (two) ity of strips 30 00:00: times [place] gauge Cmpk 00 daily. [facility] Blood-Gluco 2016-09 Yes [id number] Use TID, Univers se Meter 0-16 DX E11.9 ity of Kit 00:00: ([address] approval) blood sugar 2016-09 Yes [id number] Use TID, Univers diagnostic 0-16 DX E11.9 ity o f strip 00:00: ([address] approval) sildenafil 2016-09 Yes [id number] Take 1 Tab [facility] 25 mg 0-16 PO Daily 1 ity of tablet 00:00: hr (range: [place] 00 30 min - 4 Medical hrs) Branch before sexual activity as needed metFORMIN 2016-09 Yes [id number] 1000mg Take 2 [facility] 500 mg 0-16 tablets by ity of tablet 00:00: mouth 2 [place] 00 (two) Medical times Branch daily with meals. hydroCHLORO 2016-09 Yes [id number] 25mg Take 1 [facility] thiazide 25 0-16 tablet by ity of mg tablet 00:00: mouth [place] 00 daily. Medical Branch lisinopril 2016-09 Yes [id number] 5mg Take 1 U nivers 5 mg tablet 0-16 tablet by ity of 00:00: mouth [place] 00 daily. Medical Branch amLODIPine 2016-09 Yes [id number] 10mg Take 1 U nivers 10 mg 0-16 tablet by ity of tablet 00:00: mouth [place] 00 daily. Medical Branch insulin 2016-09 Yes [id number] 40U inject 40 U nivers glargine 0-16 Units ity of 100 unit/mL 00:00: under the [place] injection 00 skin at Medical bedtime. Branch blood sugar 2016-09 Yes [id number] Use TID, [facility] diagnostic 0-16 DX E11.9 ity o f strip 00:00: ([place] [address] upon [facility] approval) lancets-blo 2016-09 Yes [id number] 1{each} 1 Each 2 Univers od glucose 0-16 (two) ity of strips 30 00:00: times [place] gauge Cmpk 00 daily. [facility] Branch Blood-Gluco 2016-09 Yes [id number] Use TID, Univers se Meter 0-16 DX E11.9 ity of Kit 00:00: ([place] [address] upon [facility] approval) lancets-blo 2016-09 Yes [id number] 1{each} 1 Each 2 Univers od glucose 0-16 (two) ity of strips 30 00:00: times [place] gauge Cmpk 00 daily. [facility] Blood-Gluco 2016-09 Yes [id number] Use TID, Univers se Meter 0-16 DX E11.9 ity of Kit 00:00: ([address] approval) sildenafil 2016-09 Yes [id number] Take 1 Tab [facility] 25 mg 0-16 PO Daily 1 ity of tablet 00:00: hr (range: [place] 00 30 min - 4 Medical hrs) Branch before sexual activity as needed metFORMIN 2016-09 Yes [id number] 1000mg Take 2 [facility] 500 mg 0-16 tablets by ity of tablet 00:00: mouth 2 [place] 00 (two) Medical times Branch daily with meals. hydroCHLORO 2016-09 Yes [id number] 25mg Take 1 [facility] thiazide 25 0-16 tablet by ity of mg tablet 00:00: mouth [place] 00 daily. Medical Branch lisinopril 2016-09 Yes [id number] 5mg Take 1 U nivers 5 mg tablet 0-16 tablet by ity of 00:00: mouth [place] 00 daily. Medical Branch amLODIPine 2016-09 Yes [id number] 10mg Take 1 U nivers 10 mg 0-16 tablet by ity of tablet 00:00: mouth [place] 00 daily. Medical Branch insulin 2016-09 Yes [id number] 40U inject 40 U nivers glargine 0-16 Units ity of 100 unit/mL 00:00: under the [place] injection 00 skin at Medical bedtime. Branch blood sugar 2016-09 Yes [id number] Use TID, [facility] diagnostic 0-16 DX E11.9 ity o f strip 00:00: ([address] approval) lancets-blo 2016-09 Yes [id number] 1{each} 1 Each 2 [facility] od glucose 0-16 (two) ity of strips 30 00:00: times [place] gauge Cmpk 00 daily. Medical Branch Blood-Gluco 2016-09 Yes [id number] Use TID, Univers se Meter 0-16 DX E11.9 ity of Kit 00:00: ([address] approval) sildenafil 2016-09 Yes [id number] Take 1 Tab [facility] 25 mg 0-16 PO Daily 1 ity of tablet 00:00: hr (range: [place] 00 30 min - 4 Medical hrs) Branch before sexual activity as needed metFORMIN 2016-09 Yes [id number] 1000mg Take 2 [facility] 500 mg 0-16 tablets by ity of tablet 00:00: mouth 2 [place] 00 (two) Medical times Branch daily with meals. hydroCHLORO 2016-09 Yes [id number] 25mg Take 1 [facility] thiazide 25 0-16 tablet by ity of mg tablet 00:00: mouth [place] 00 daily. Medical Branch lisinopril 2016-09 Yes [id number] 5mg Take 1 U nivers 5 mg tablet 0-16 tablet by ity of 00:00: mouth [place] 00 daily. Medical Branch amLODIPine 2016-09 Yes [id number] 10mg Take 1 U nivers 10 mg 0-16 tablet by ity of tablet 00:00: mouth [place] 00 daily. Medical Branch insulin 2016-09 Yes [id number] 40U inject 40 U nivers glargine 0-16 Units ity of 100 unit/mL 00:00: under the [place] injection 00 skin at Medical bedtime. Branch blood sugar 2016-09 Yes [id number] Use TID, [facility] diagnostic 0-16 DX E11.9 ity o f strip 00:00: ([place] [address] upon [facility] approval) lancets-blo 2016-09 Yes [id number] 1{each} 1 Each 2 Univers od glucose 0-16 (two) ity of strips 30 00:00: times [place] gauge Cmpk 00 daily. Medical Branch Blood-Gluco 2016-09 Yes [id number] Use TID, Univers se Meter 0-16 DX E11.9 ity of Kit 00:00: ([place] [id number] upon [facility] approval) sildenafil 2016-09 Yes [id number] Take 1 Tab Univers 25 mg 0-16 PO Daily 1 ity of tablet 00:00: hr (range: [place] 00 30 min - 4 Medical hrs) Branch before sexual activity as needed metFORMIN 2016-09 Yes [id number] 1000mg Take 2 Univers 500 mg 0-16 tablets by ity of tablet 00:00: mouth 2 [place] 00 (two) Medical times Branch daily with meals. hydroCHLORO 2016-09 Yes [id number] 25mg Take 1 Univers thiazide 25 0-16 tablet by ity of mg tablet 00:00: mouth [place] 00 daily. Medical Branch lisinopril 2016-09 Yes [id number] 5mg Take 1 U nivers 5 mg tablet 0-16 tablet by ity of 00:00: mouth [place] 00 daily. Medical Branch amLODIPine 2016-09 Yes [id number] 10mg Take 1 U nivers 10 mg 0-16 tablet by ity of tablet 00:00: mouth [place] 00 daily. Medical Branch insulin 2016- Yes [id number] 40U inject 40 U nivers glargine 0-16 Units ity of 100 unit/mL 00:00: [place] injection 00 skin at Medical bedtime. Branch blood sugar 2016-09 Yes [id number] Use TID, Univers diagnostic 0-16 DX E11.9 ity o f strip 00:00: ([place] [address] upon [facility] approval) lancets-blo 2016-09 Yes [id number] 1{each} 1 Each 2 Univers od glucose 0-16 (two) ity of strips 30 00:00: times [place] gauge Cmpk 00 daily. Medical Branch Blood-Gluco 2016-09 Yes [id number] Use TID, Univers se Meter 0-16 DX E11.9 ity of Kit 00:00: (Brand [place] 00 upon Medical insurance Branch approval) sildenafil 2016-09 Yes [id number] Take 1 Tab Univers 25 mg 0-16 PO Daily 1 ity of tablet 00:00: hr (range: [place] 00 30 min - 4 Medical hrs) Branch before sexual activity as needed metFORMIN 2016-09 Yes [id number] 1000mg Take 2 Univers 500 mg 0-16 tablets by ity of tablet 00:00: mouth 2 [place] 00 (two) Medical times Branch daily with meals. hydroCHLORO 2016-09 Yes [id number] 25mg Take 1 Univers thiazide 25 0-16 tablet by ity of mg tablet 00:00: mouth [place] 00 daily. Medical Branch lisinopril 2016-09 Yes [id number] 5mg Take 1 U nivers 5 mg [...] Pf Covid-19 Vaccine 2020-12-03 Completed Sandra mojicabold (Moderna), Mrna-lnp, 00:00:00 [place] [facility], Pf, 100 Mcg/0.5ml,IM Covid-19 Vaccine 2020-12-03 Completed Sandra mojicabold (Moderna), Mrna-lnp, 00:00:00 [place] [facility], Pf, 100 Mcg/0.5ml,IM Influenza Virus 2020-06-11 Completed Universit y of Vaccine 00:00:00 [facility] Influenza Virus 2020-06-11 Completed Universit y of Vaccine 00:00:00 [facility] Influenza Virus 2020-06-11 Completed Universit y of Vaccine 00:00:00 [facility] Influenza Virus 2020-06-11 Completed Universit y of Vaccine 00:00:00 [facility] Influenza Virus 2020-06-11 Completed Universit y of Vaccine 00:00:00 [facility] Influenza Virus 2020-06-11 Completed Universit y of Vaccine 00:00:00 [facility] Influenza Virus 2020-06-11 Completed Universit y of Vaccine 00:00:00 [facility] Influenza Virus 2020-06-11 Completed Universit y of Vaccine 00:00:00 [facility] Influenza Virus 2020-06-11 Completed Universit y of Vaccine 00:00:00 [facility] Influenza Virus 2020-06-11 Completed Universit y of Vaccine 00:00:00 [facility] Influenza Virus 2020-06-11 Completed Universit y of Vaccine 00:00:00 [facility] Influenza Virus 2020-06-11 Completed Universit y of Vaccine 00:00:00 [facility] Influenza Virus 2020-06-11 Completed Sandra Pina ybold Vaccine, Unspecified 00:00:00 [facility] Influenza Virus 2020-06-11 Completed Sandra Se ybold Vaccine, Unspecified 00:00:00 Formulation Influenza Virus 2020-06-11 Completed Sanrda Pina ybold - Vaccine, Unspecified 00:00:00 Exte rnal [...] External Preservative Free Pneumococcal Vaccine, 2019-08-25 Completed Louis sey Seybold - Polysaccharide 00:00:00 External Influenza, Seasonal, 2019-08-25 Completed Pamela ey Seybold - Injectable, 00:00:00 External Preservative Free Pneumococcal Vaccine, 2019-08-25 Completed Louis sey Seybold - Polysaccharide 00:00:00 External Influenza, Seasonal, 2019-08-25 Completed Pamela ey Seybold - Injectable, 00:00:00 External Preservative Free Pneumococcal Vaccine, 2019-08-25 Completed Louis sey Seybold - Polysaccharide 00:00:00 External Influenza, Seasonal, 2019-08-25 Completed Pamela ey Seybold - Injectable, 00:00:00 External Preservative Free Pneumococcal Vaccine, 2019-08-25 Completed Louis sey Seybold - Polysaccharide 00:00:00 External Influenza, Seasonal, 2019-08-25 Completed Pamela ey Seybold - Injectable, 00:00:00 External Preservative Free Pneumococcal Vaccine, 2019-08-25 Completed Louis sey Seybold - Polysaccharide 00:00:00 External Influenza, Seasonal, 2019-08-25 Completed Pamela ey Seybold Injectable, 00:00:00 Preservative Free Pneumococcal Vaccine, 2019-08-25 Completed Louis Argueta Polysaccharide 00:00:00 Pneumococcal 2016-11-24 Completed University o f Polysaccharide, 00:00:00 [place] [facility] PPSV23 (PNEUMOVAX) [place] Influenza Virus 2016-11-24 Completed Universit y of Vaccine Quad IM 3+ 00:00:00 [facility] Pneumococcal 2016-11-24 Completed University o f Polysaccharide, 00:00:00 [place] [facility] PPSV23 (PNEUMOVAX) Branch Influenza Virus 2016-11-24 Completed Universit y of Vaccine Quad IM 3+ 00:00:00 [facility] Pneumococcal 2016-11-24 Completed University o f Polysaccharide, 00:00:00 [place] [facility] PPSV23 (PNEUMOVAX) Branch Influenza Virus 2016-11-24 Completed Universit y of Vaccine Quad IM 3+ 00:00:00 [facility] Pneumococcal 2016-11-24 Completed University o f Polysaccharide, 00:00:00 [place] [facility] PPSV23 (PNEUMOVAX) Branch Influenza Virus 2016-11-24 Completed Universit y of Vaccine Quad IM 3+ 00:00:00 [facility] Pneumococcal 2016-11-24 Completed University o f Polysaccharide, 00:00:00 [place] [facility] PPSV23 (PNEUMOVAX) Branch Influenza Virus 2016-11-24 Completed Universit y of Vaccine Quad IM 3+ 00:00:00 [facility] Pneumococcal 2016-11-24 Completed University o f Polysaccharide, 00:00:00 [place] [facility] PPSV23 (PNEUMOVAX) Branch Influenza Virus 2016-11-24 Completed Universit y of Vaccine Quad IM 3+ 00:00:00 [facility] Pneumococcal 2016-11-24 Completed University o f Polysaccharide, 00:00:00 [place] [facility] PPSV23 (PNEUMOVAX) Branch Influenza Virus 2016-11-24 Completed Universit y of Vaccine Quad IM 3+ 00:00:00 [facility] Pneumococcal 2016-11-24 Completed University o f Polysaccharide, 00:00:00 [place] [facility] PPSV23 (PNEUMOVAX) [place] Influenza Virus 2016-11-24 Completed Universit y of Vaccine Quad IM 3+ 00:00:00 [facility] Pneumococcal 2016-11-24 Completed University o f Polysaccharide, 00:00:00 [place] [facility] PPSV23 (PNEUMOVAX) Branch Influenza Virus 2016-11-24 Completed Universit y of Vaccine Quad IM 3+ 00:00:00 [facility] Pneumococcal 2016-11-24 Completed University o f Polysaccharide, 00:00:00 [place] [facility] PPSV23 (PNEUMOVAX) Branch Influenza Virus 2016-11-24 Completed Universit y of Vaccine Quad IM 3+ 00:00:00 [facility] Pneumococcal 2016-11-24 Completed University o f Polysaccharide, 00:00:00 [facility] ical PPSV23 (PNEUMOVAX) Branch Influenza Virus 2016-11-24 Completed Universit y of Vaccine Quad IM 3+ 00:00:00 [facility] Pneumococcal 2016-11-24 Completed University o f Polysaccharide, 00:00:00 [place] [facility] PPSV23 (PNEUMOVAX) Branch Influenza Virus 2016-11-24 Completed Universit y of Vaccine Quad IM 3+ 00:00:00 [facility] Pneumococcal 2016-11-24 Completed University o f Polysaccharide, 00:00:00 [place] [facility] PPSV23 (PNEUMOVAX) Branch Influenza Virus 2016-11-24 Completed Universit y of Vaccine Quad IM 3+ 00:00:00 [facility] Influenza Virus 2016-11-24 Completed Sandra Se [...] Pneumococcal Vaccine, 2016-11-24 Completed Louis sey Seybold - Polysaccharide 00:00:00 External Influenza Virus 2016-11-24 Completed Sandra Se ybold - Vaccine, No Preserv, 00:00:00 Exte rnal age 6 months and up Pneumococcal Vaccine, 2016-11-24 Completed Louis sey Seybold - Polysaccharide 00:00:00 External Influenza Virus 2016-11-24 Completed Sandra Se ybold - Vaccine, No Preserv, 00:00:00 Exte rnal age 6 months and up Pneumococcal Vaccine, 2016-11-24 Completed Louis sey Seybold - Polysaccharide 00:00:00 External Influenza Virus 2016-11-24 Completed Sandra Se ybold - Vaccine, No Preserv, 00:00:00 Exte rnal age 6 months and up Pneumococcal Vaccine, 2016-11-24 Completed Louis sey Seybold - Polysaccharide 00:00:00 External Influenza Virus 2016-11-24 Completed Sandra Se ybold - Vaccine, No Preserv, 00:00:00 Exte rnal age 6 months and up Pneumococcal Vaccine, 2016-11-24 Completed Louis sey Seybold - Polysaccharide 00:00:00 External Influenza Virus 2016-11-24 Completed Sandra Se ybold Vaccine, No Preserv, 00:00:00 age 6 months and up Pneumococcal Vaccine, 2016-11-24 Completed Louis sey Seybold Polysaccharide 00:00:00 Td 2016-11-22 Completed University of 00:00:00 [facility] Td 2016-11-22 Completed University of 00:00:00 [facility] Td 2016-11-22 Completed University of 00:00:00 [facility] Td 2016-11-22 Completed University of 00:00:00 [facility] Td 2016-11-22 Completed University of 00:00:00 [facility] Td 2016-11-22 Completed University of 00:00:00 [facility] Td 2016-11-22 Completed University of 00:00:00 [facility] Td 2016-11-22 Completed University of 00:00:00 [facility] Td 2016-11-22 Completed University of 00:00:00 [facility] Td 2016-11-22 Completed University of 00:00:00 [facility] Td 2016-11-22 Completed University of 00:00:00 [facility] Td 2016-11-22 Completed University of 00:00:00 [facility] Td 2016-11-22 Completed University of 00:00:00 [facility] Td (adult) 2016-11-22 Completed Sandra Seybold 00:00:00 Td (adult) 2016-11-22 Completed Sandra Seybold 00:00:00 Td (adult) 2016-11-22 Completed Sandra Seybold - 00:00:00 External Td (adult) 2016-11-22 Completed Sanrda Seybold - 00:00:00 External Td (adult) 2016-11-22 [...] 14:49:00 Heart rate 2021-10-20 113 /min Sandra Seybold 14:49:00 Body temperature 2021-10-20 36.72 Makenzie Sandra Pinayb old 14:49:00 Respiratory rate 2021-10-20 15 /min Sandra Seyb old 14:49:00 Body height 2021-10-20 182.9 cm Sandra Argueta 14:49:00 Body temperature 2020-10-20 36.67 Makenzie University 16:33:00 [facility] Body height 2020-10-20 180.3 cm University 16:33:00 [facility] Body weight 2020-10-20 121.11 kg University 16:33:00 [facility] BMI 2020-10-20 37.24 kg/m2 University of 16:33:00 [facility] Body temperature 2020-09-29 36.44 Makenzie University 15:34:00 [facility] Body weight 2020-09-29 121.473 kg [facility] 15:34:00 [facility] BMI 2020-09-29 37.35 kg/m2 [facility] 15:34:00 [facility] Systolic blood 2020-08-11 177 mm[Hg] University of pressure 19:17:00 [facility] Diastolic blood 2020-08-11 101 mm[Hg] [place] o f pressure 19:17:00 [facility] Heart rate 2020-08-11 110 /min University 19:17:00 [facility] Body temperature 2020-08-11 36.44 Makenzie University 19:15:00 [facility] Respiratory rate 2020-08-11 16 /min University 19:15:00 [facility] Body height 2020-08-11 180.3 cm University 19:15:00 [facility] Body weight 2020-08-11 121.473 kg University 19:15:00 [facility] BMI 2020-08-11 37.35 kg/m2 University 19:15:00 [facility] Procedures Procedure Date / Time Performed Performing Clinician Souryisel e XR FOOT 3+ VW RIGHT 2020-09-29 16:15:00 Kaye Keller [facility] ASSIGNMENT OF BENEFITS 2020-08-11 19:07:32 Doctor Unassigned, No [facility] Plan of Care Planned Activity Planned Date Details Comments Source Future Scheduled 2026-11-22 DTAP/TDAP/TD VACCINES ([address] [facility] 00:00:00 - Td or Tdap) [facility] DTAP/TDAP/TD VACCINES (2 - Td or Tdap)] [...] [facility] 00:[facility]00 measurement (procedure) [facility] [code = 74578501] Future Scheduled 2021-09-[address] [facility] 00:00:00 measurement (procedure) [facility] [code = 99734924] Future Scheduled 2021-09-[address] [facility] 00:00:00 measurement (procedure) [facility] [code = 79249401] Future Scheduled 2021-09-[address] [facility] 00:00:00 measurement (procedure) [facility] [code = 04777746] Future Scheduled 2021-01-28 COVID-19 VACCINE (2 - [...] [facility] 00:00:00 [code = 83513551] Medical Ce nter Future Scheduled 2004 Lipid panel (procedure) [facility] 00:00:00 [code = 38811614] Medical Ce nter Future Scheduled 2004 Lipid panel (procedure) [facility] 00:00:00 [code = 84238783] Medical Ce nter Future Scheduled 2004 Lipid panel (procedure) [facility] 00:00:00 [code = 08334166] Medical Ce nter Future Scheduled 1987 HEPATITIS [...] screening [facility] (procedure) [code = 497902778] Future Scheduled [address] [facility] 00:00:00 virus screening [facility] (procedure) [code = 219079417] Future Scheduled [address] Human immunodeficiency [facility] 00:00:00 virus screening [facility] Cent [facility] (procedure) [code = 089796715] Future Scheduled 1979 DIABETIC EYE EXAM [code = [facility] 00:00:00 DIABETIC EYE EXAM] Medical C enter Future Scheduled 1979 Diabetic foot examination [facility] 00:00:00 (regime/therapy) [code = [facility] 164805864] Future Scheduled 1979 Urine screening for [facility] 00:00:00 [facility] (procedure) [facility] Future Scheduled 1979 DIABETIC EYE EXAM [code = [facility] 00:00:00 DIABETIC EYE EXAM] Medical C enter Future Scheduled 1979 Diabetic foot examination [facility] 00:00:00 (regime/therapy) [code = [facility] 013618538] Future Scheduled 1979 Urine screening for [facility] 00:00:00 protein (procedure) [code [facility] = 753731524] Future Scheduled 1979 DIABETIC EYE EXAM [code = [facility] 00:00:00 DIABETIC EYE EXAM] Medical C enter Future Scheduled 1979 Diabetic foot examination [facility] 00:00:00 (regime/therapy) [code = [facility] 410877399] Future Scheduled 1979 Urine screening for [facility] 00:00:00 protein (procedure) [code [facility] = 920603040] Future Scheduled 1979 DIABETIC EYE EXAM [code = [facility] 00:00:00 DIABETIC EYE EXAM] Medical C enter Future Scheduled 1979 Diabetic foot examination [facility] 00:00:00 (regime/therapy) [code = [facility] 033699458] Future Scheduled 1979 Urine screening for [facility] 00:00:00 protein (procedure) [facility] 19[facility] Future Scheduled 1969 CT Colonography (combo) [facility] 00:00:00 [code = CT Colonography [facility] (combo)] Future Scheduled 1969 Screening for malignant [facility] 00:00:00 neoplasm of colon Medical Ce nter (procedure) [code = 346109254] Future Scheduled 1969 Screening for malignant [facility] 00:00:00 neoplasm of colon Medical Ce nter (procedure) [code = 049757030] Future Scheduled 1969 Screening for malignant [facility] 00:00:00 neoplasm of colon Medical Ce nter (procedure) [code = 247256485] Future Scheduled 1969 Screening for malignant [facility] 00:00:00 neoplasm of colon Medical Ce nter (procedure) [code = 504417074] Future Scheduled 1969 Sigmoidoscopy [code [facility] S[facility]oscopy] Medical Cente r Future Scheduled 1969 CT Colonography (combo) [facility] 00:00:00 [code = CT [facility]ography [facility] (combo)] Future Scheduled 1969 Screening for malignant [facility] 00:00:00 neoplasm of colon Medical Ce nter (procedure) [code = 690542250] Future Scheduled 1969 Screening for malignant [facility] 00:00:00 neoplasm of colon Medical Ce nter (procedure) [code = 270104362] Future Scheduled 1969 Screening for malignant [facility] 00:00:00 neoplasm of colon Medical Ce nter (procedure) [code = 521584845] Future Scheduled 1969 Screening for malignant [facility] 00:00:00 neoplasm of colon Medical Ce nter (procedure) [code = 347911556] Future Scheduled 1969 Sigmoidoscopy [code [facility] 00:[facility] S[facility]oidoscopy] Medical Cente r Future Scheduled 1969 CT Colonography (combo) [facility] 00:00:00 [code = CT Colonography [facility] (combo)] Future Scheduled 1969 Screening for malignant [facility] 00:00:00 neoplasm of colon Medical Ce nter (procedure) [code = 888080935] Future Scheduled 1969 Screening for malignant [facility] 00:00:00 neoplasm of colon Medical Ce nter (procedure) [code = 689728797] Future Scheduled 1969 Screening for malignant [facility] 00:00:00 neoplasm of colon Medical Ce nter (procedure) [code = 352176285] Future Scheduled 1969 Screening for malignant [facility] 00:00:00 neoplasm of colon Medical Ce nter (procedure) [code = 814778107] Future Scheduled 1969 Sigmoidoscopy [code [facility] 00:[facility] Sigmoidoscopy] Medical Cente r Future Scheduled 1969 CT Colonography (combo) [facility] 00:00:00 [code = CT Colonography [facility] (combo)] Future Scheduled 1969 Screening for malignant [facility] 00:00:00 neoplasm of colon Medical Ce nter (procedure) [code = 964148235] Future Scheduled 1969 Screening for malignant [facility] 00:00:00 neoplasm of colon Medical Ce nter (procedure) [code = 141697584] Future Scheduled 1969 Screening for malignant [facility] 00:00:00 neoplasm of colon Medical Ce nter (procedure) [code = 760265850] Future Scheduled 1969 Screening for malignant [facility] 00:00:00 neoplasm of colon Medical Ce nter (procedure) [code = 301783628] Future Scheduled 1969 Sigmoidoscopy [code [facility] 00:[facility] Sigmoidoscopy] Medical Cente r Encounters Start End Encounter Admission Attending Care Care Encounter Source Date/Time Date/Time Type Type Clinicians Facility Department ID 2023-04-18 2023-04-18 Outpatient SANDRA MCCALL [id number] Sandra 11:45:00 11:45:00 GERARDO Seybol d 2023-04-12 2023-04-12 Outpatient SANDRA MCCALL [id number] Sandra 00:00:00 00:00:00 GERARDO Seybol d 2023-04-08 2023-04-08 Outpatient SANDRA MCCALL [id number] Sandra 08:30:00 08:30:00 GERARDO Seybol d 2023-02-15 2023-02-15 Outpatient SANDRA SWANN [id number] Sandra 00:00:00 00:00:00 MARY Seybol d 2023-02-11 2023-02-11 Outpatient HUNDL, SANDRA MCDANIELS [id number] Sandra 00:00:00 00:00:00 MARY Seybol d 2023-01-21 2023-01-21 Outpatient HUNDL, SANDRA MCDANIELS [id number] Sandra 00:00:00 00:00:00 MARY Seybol d 2023-01-13 2023-01-13 Outpatient HUNDL, SANDRA MCDANIELS [id number] Sandra 00:00:00 00:00:00 MARY Seybol d 2023-01-05 2023-01-05 Outpatient HUNDL, SANDRA MCDANIELS [id number] Sandra 00:00:00 00:00:00 MARY Seybol d 2023-01-04 2023-01-04 Outpatient HUNDL, SANDRA MCDANIELS [id number] Sandra 00:00:00 00:00:00 MARY Seybol d 2022-12-27 2022-12-27 Outpatient HUNDL, SANDRA MCDANIELS [id number] Sandra 00:00:00 00:00:00 MARY Seybol d 2022-12-20 2022-12-20 Outpatient HUNDL, SANDRA MCDANIELS [id number] Sandra 00:00:00 00:00:00 MARY Seybol d 2022-12-13 2022-12-13 Outpatient HUNDL, SANDRA MCDANIELS [id number] Sandra 16:30:00 16:30:00 MARY Seybol d 2022-12-13 2022-12-13 Outpatient SANDRA LARA [id number] Sandra 08:40:00 08:40:00 ABBEY Seybol d 2022-12-13 2022-12-13 Outpatient SANDRA MCDANIELS [id number] Sandra 08:25:00 08:25:00 Seybol d 2022-12-13 2022-12-13 Outpatient SANDRA MCDANIELS [id number] Sandra 08:15:00 08:15:00 Seybol d 2022-12-13 2022-12-13 Outpatient SANDRA LARA [id number] Sandra 00:00:00 00:00:00 ABBEY Seybol d 2022-12-10 2022-12-10 Outpatient JANE, SANDRA MCDANIELS [id number] Sandra 00:00:00 00:00:00 ABBEY Seybol d 2022-12-07 2022-12-07 Outpatient HUNDL, SANDRA MCDANIELS [id number] Sandra 00:00:00 00:00:00 MARY Seybol d 2022-12-06 2022-12-06 Outpatient PREZAS, SANDRA MCDANIELS [id number] Sandra 00:00:00 00:00:00 GERARDO Seybol d 2022-11-26 2022-11-26 Outpatient JAMIE, BANKS SANDRA MCDANIELS [id number] Sandra 13:30:00 13:30:00 Seybol d 2022-11-26 2022-11-26 Outpatient LAB90 SANDRA MCDANIELS [id number] Sandra 12:55:00 12:55:00 Seybol d 2022-11-25 2022-11-25 Outpatient HUNDL, SANDRA MCDANIELS [id number] Sandra 00:00:00 00:00:00 MARY Seybol d 2022-11-23 2022-11-23 Outpatient HUNDL, SANDRA MCDANIELS [id number] Sandra 13:30:00 13:30:00 MARY Seybol d 2022-11-23 2022-11-23 Outpatient HUNDL, SANDRA MCDANIELS [id number] Sandra 13:30:00 13:30:00 MARY Seybol d 2022-11-17 2022-11-17 Outpatient ONWUCHURUBA SANDRA MCDANIELS [id number] Sandra 10:30:00 10:30:00 , SABRINA Sey bold 2022-11-14 2022-11-14 Outpatient HUNDL, SANDRA MCDANIELS [id number] Sandra 00:00:00 00:00:00 MARY Seybol d 2022-11-09 2022-11-09 Outpatient HUNDL, SANDRA MCDANIELS [id number] Sandra 00:00:00 00:00:00 MARY Seybol d 2022-11-08 2022-11-08 Outpatient HUNDL, SANDRA MCDANIELS [id number] Sandra 10:30:00 10:30:00 MARY Seybol d 2022-10-22 2022-10-22 Outpatient HUNDL, SANDRA MCDANIELS [id number] Sandra 00:00:00 00:00:00 MARY Seybol d 2022-10-21 2022-10-21 Outpatient PROVIDER, SANDRA MCDANIELS [id number] Sandra 20:00:00 20:00:00 VIDEOVISITN Se evgeny OW 2022-10-17 2022-10-17 Outpatient SHREE, SANDRA MCDANIELS [id number] Sandra 00:00:00 00:00:00 MARY Seybol d 2022-10-12 2022-10-12 Outpatient LAB90 SANDRA MCDANIELS [id number] Sandra 09:15:00 09:15:00 Seybol d 2022-10-12 2022-10-12 Outpatient SANDRA SWANN [id number] Sandra 08:30:00 08:30:00 MARY Seybol d 2022-09-28 2022-09-28 Outpatient SANDRA SWANN [id number] Sandra 08:00:00 08:00:00 MARY Seybol d 2022-01-01 2022-01-01 [facility] Lorena-L[place] [id number] Sandra 14:30:00 15:08:38 ne [place] [id number] Se evgeny [place] [id number] 2021-12-28 2021-12-28 Outpatient LAB90 SANDRA MCDANIELS [id number] Sandra 13:45:00 13:45:00 Seybol d 2021-12-22 2021-12-22 Outpatient LORENA-LATI SANDRA MCDANIELS [id number] Sandra 00:00:00 00:00:00 Minerva MCMAHAN 2021-12-21 2021-12-21 Outpatient SHELBI MCDANIELS [id number] Sandra 00:00:00 00:00:00 MD JOHANA Seybol d 2021-11-25 2021-11-25 Outpatient LORENA-LATI SANDRA MCDANIELS [id number] Sandra 14:00:00 14:00:00 MARJ Seybol genevieve [place] 2021-11-24 2021-11-24 Outpatient AKINSANDRA FLOYD [id number] Sandra 09:00:00 09:00:00 MAGALIS Seybol d 2021-11-19 2021-11-19 Outpatient STEVIE SANDRA MCDANIELS [id number] Sandra 00:00:00 00:00:00 TEETEE Seybol d 2021-11-17 2021-11-17 Outpatient MYLOUISSEYONL SANDRA MCDANIELS [id number] Sandra 00:00:00 00:00:00 MD JOHANA Seybol d 2021-11-16 2021-11-16 Outpatient STEVIE SANDRA MCDANIELS [id number] Sandra 00:00:00 00:00:00 TEETEE Seybol d 2021-11-11 2021-11-11 Outpatient STEVIE SANDRA MCDANIELS [id number] Sandra 08:00:00 08:00:00 TEETEE Seybol d 2021-11-11 2021-11-11 Outpatient STEVIE, SANDRA MCDANIELS [id number] Sandra 00:00:00 00:00:00 TEETEE Seybol d 2021-11-04 2021-11-04 Outpatient STEVIE SANDRA MCDANIELS [id number] Sandra 00:00:00 00:00:00 TEETEE Seybol d 2021-11-03 2021-11-03 Outpatient LAB39 SANDRA MCDANIELS [id number] Sandra 15:15:00 15:15:00 Seybol d 2021-11-03 2021-11-03 Office [facility] [id number] Sandra 13:30:00 14:30:00 Visit GABI mcmahan [id number] Se ybjarod [place] [id number] 2021-10-28 2021-10-28 Outpatient SANDRA SWANN [id number] Sandra 00:00:00 00:00:00 MARY Seybol d 2021-10-26 2021-10-26 Outpatient SANDRA SWANN [id number] Sandra 00:00:00 00:00:00 MARY Seybol d 2021-10-26 2021-10-26 Outpatient LORENA-LATI SANDRA MCDANIELS [id number] Sandra 00:00:00 00:00:00 MARJ, Seybol d CORRIE 2021-10-20 2021-10-20 Outpatient IFP63-CRU SANDRA MCDANIELS [id number] Sandra 10:15:00 10:15:00 Seybol d 2021-10-20 2021-10-20 Outpatient LAB90 SANDRA MCDANIELS [id number] Sandra 10:10:00 10:10:00 Seybol d 2021-10-20 2021-10-20 Office AdinaRamesh guevara 1.2.840.114 [id number] Sandra 09:00:00 09:30:00 Visit Mary Curt 350.1.13.13 Se evgeny 1.2.7.2.686 [id number] 2021-09-18 2021-09-25 Inpatient UR VINCENT TIERNEY Neurosurger 20 [id number] [facility] 16:39:00 18:24:00 MRINALINI y 2021-05-18 2021-05-18 Outpatient AKINEVERETT, SANDRA MCDANIELS [id number] Sandra 10:15:00 10:15:00 MAGALIS Seybol d 2021-05-15 2021-05-15 Outpatient AKINEVERETT, SANDRA MCDANIELS [id number] Sandra 00:00:00 00:00:00 MAGALIS Seybol d 2021-04-28 2021-04-28 Outpatient AKINEVERETT, SANDRA MCDANIELS [id number] Sandra 00:00:00 00:00:00 MAGALIS Seybol d 2021-04-27 2021-04-27 Outpatient AKINADE, SANDRA MCDANIELS [id number] Sandra 00:00:00 00:00:00 MAGALIS Seybol d 2021-04-22 2021-04-22 Outpatient AKINEVERETT, SANDRA MCDANIELS [id number] Sandra 00:00:00 00:00:00 MAGALIS Seybol d 2021-04-20 2021-04-20 Outpatient AKINEVERETT, SANDRA MCDANIELS [id number] Sandra 00:00:00 00:00:00 MAGALIS Seybol d 2021-04-17 2021-04-17 Outpatient AWAISSANDRA [id number] Sandra 00:00:00 00:00:00 MAGALIS Seybol d 2021-04-17 2021-04-17 Outpatient MARITZA LEWIS SANDRA MCDANIELS [id number] Sandra 00:00:00 00:00:00 Seybol d 2021-04-16 2021-04-16 Outpatient BENJAMINSANDRA FLOYD [id number] Sandra 08:30:00 08:30:00 MAGALIS Seybol d 2021-04-16 2021-04-16 Outpatient JOR31-ILH SANDRA MCDANIELS [id number] Sandra 08:20:00 08:20:00 Seybol d 2021-04-06 2021-04-06 Outpatient SANDRA FERMIN [id number] Sandra 00:00:00 00:00:00 ROSALBA Seybol d 2021-04-04 2021-04-04 Outpatient SANDRA FERMIN [id number] Sandra 00:00:00 00:00:00 ROSALBA Seybol d 2020-12-02 2020-12-02 Patient Quentin [facility] 1.2.840.114 [id number] Univers 00:00:00 00:00:00 Outreach Lars PRIMARY 350.1.13.10 i [facility] [place] [id number] Me dical [facility] 2020-11-10 2020-11-10 Outpatient R ARIANNA [facility] [id number] Univers 09:45:00 09:45:00 KAYE ity of [facility] 2020-10-31 2020-10-31 Telephone Michaelajacob [facility] [id number] Univers 00:00:00 00:00:00 Armin [facility] [place] [id number] Me dical VICTORY 198 [facility] 2020-10-20 2020-10-20 [facility] 1.2.840.114 [id number] Univers 10:05:41 13:50:58 Visit Armin SPECIALTY 350.1.13.10 [place] [id number] Ca dical VICTORY 198 [facility] 2020-10-20 2020-10-20 [facility] [id number] Univers 09:45:00 09:45:00 KAYE ity of [facility] 2020-10-13 2020-10-13 [facility] [id number] Univers 10:30:00 10:30:00 ARMIN ity of [facility] 2020-09-29 2020-09-29 [facility] 1.2.840.114 [id number] Univers 10:03:46 23:59:00 Encounter Kaye PRIMARY 350.1.13.10 ity of [place] [id number] Ca dical [address] [place] 2020-09-29 2020-09-29 [facility] [id number] Univers 09:27:17 10:36:22 Visit Kaye PRIMARY 350.1.13.10 ity [place] [id number] Ca dical [address] [place] 2020-09-29 2020-09-29 Outpatient [facility] [id number] Univers 09:15:00 09:15:00 KAYE ity of [facility] 2020-08-11 2020-08-11 [employer] [facility] 1.2.840.114 [id number] Univers 14:45:44 15:00:44 Visit Teresa Edwards [facility] 350.1.13.10 ity of CL[place]ICS [place] [id number] [facility] [address] [place] 2020-08-11 2020-08-11 Office Nabila Collins [facility] 1.2.840.114 [id number] Univers 13:08:19 14:38:25 Visit Grace Teresa Jazmine ALFONSO 350.1.13.10 ity of CLINICS 4.2.7.2.686 [place] [id number] [facility] 0[address] Branch 2020-08-11 2020-08-11 Outpatient R [facility] [id number] Univers 13:00:00 13:00:00 ity of [facility] 2020-08-11 2020-08-11 Orders Doctor MALISSA 1.2.840.114 [id number] Univers 00:00:00 00:00:00 Only Unassigned, FARHAN 350.1.13.10 ity of [facility] 4.2.7.2.686 [place] as [id number] [facility] 009 Branch Results Test Description Test Time Test Comments Results Result Comments Source POCT-GLUCOSE METER 2021-09-25 11:26:37 Test Item Value Reference Range Interpretation Comme nts POC-GLUCOSE METER (BEAKER) 160 mg/dL 70-110 H : TESTED AT [address] (test code = 1538) [place] Francis Mckeon, [address]: Organizational Effectiveness Director/Techni lucy ID = [id number] for Tian Fletcher (CELLAVISION MANUAL DIFF)2021-09-25 08:29:01 [...] CONCENTRATION Adequate (CELLAVISION)(BEAKER) (test code = 3438) Organizational Effectiveness Director ID - claudia Hoyt comments: Slide comments:CBC W/PLT COUNT & AUTO [id number] 08:29:00 Test Item Value Reference Range Interpretation [...] 0-0 (BEAKER) (test code = 413) POCT-GLUCOSE [id number] 08:03:44 Test Item Value Reference Range Interpretation Comments POC-GLUCOSE METER 155 mg/dL 70-110 H : TESTED A T [facility] 6720 (BEAKER) (test code = [facility], 1538) 47236: Organizational Effectiveness Director/Techni lucy ID = [id number] for Marcelino Cabrera BASIC METABOLIC [id number] 06:46:41 Test Item Value Reference Range Interpretation [...] S NOT APPLICABLE FOR DIALYSIS PATIEN TS. Organizational Effectiveness Director ID - ESTRADA MPOCT-GLUCOSE [id number] 17:47:29 Test Item Value Reference Range Interpretation Comments POC-GLUCOSE METER 160 mg/dL 70-110 H : TESTED A T [facility] 6720 (BEAKER) (test code = [facility], 1538) 33511: Organizational Effectiveness Director/Techni lucy ID = [id number] for Marcelino Cabrera POCT-GLUCOSE [id number] 11:07:55 Test Item Value Reference Range Interpretation Comments POC-GLUCOSE METER 185 mg/dL 70-110 H : TESTED A T [facility] 6720 (BEAKER) (test code = SHIL[place] Dunn [place], 1538) 39988: Organizational Effectiveness Director/Techni lucy ID = [id number] for Alisa Guadarrama POCT-GLUCOSE [id number] 07:59:08 Test Item Value Reference Range Interpretation Comments POC-GLUCOSE METER 202 mg/dL 70-110 H : TESTED A T [facility] 6720 (BEAKER) (test code = SHILPA Dunn [facility], 1538) 14437: Organizational Effectiveness Director/Techni lucy ID = [id number] for Bl Marcelino cevallos (CELLAVISION MANUAL DIFF)2021-09-24 07:06:11 Test Item Value [...] CONCENTRATION Adequate (CELLAVISION)(BEAKER) (test code = 3438) Organizational Effectiveness Director ID - Emily Torres comments: Slide comments:CBC W/PLT COUNT & AUTO [id number] 07:06:05 Test Item Value Reference Range Interpretation [...] (BEAKER) (test code = 413) BASIC METABOLIC [id number] 06:51:21 Test Item Value Reference Range Interpretation [...] S NOT APPLICABLE FOR DIALYSIS PATIEN TS. Organizational Effectiveness Director ID - DEVIKA WBLOOD [id number] 06:01:11 Test Item Value Reference Range Interpretation Comments CULTURE (BEAKER) (test No growth in 5 days code = 1095) BLOOD [id number] 01:01:07 Test Item Value Reference Range Interpretation Comments CULTURE (BEAKER) (test No growth in 5 days code = 1095) POCT-GLUCOSE [id number] 21:28:29 Test Item Value Reference Range Interpretation Comments POC-GLUCOSE METER 187 mg/dL 70-110 H : TESTED A T [facility] 6720 (BEAKER) (test code = [facility], 1538) 00678: Organizational Effectiveness Director/Techni lucy ID = [id number] for Steph Kumar BLOOD [id number] 20:00:49 Test Item Value Reference Range Interpretation Comments CULTURE (BEAKER) (test No growth in 5 days code = 1095) The specimen volume collected for this blood culture was below the optimum (10 mL per bottle or 20 mL total). Use of lower volumes may adversely affect recovery and/or detection times of some organisms.POCT-GLUCOSE [id number] 17:25:26 Test Item Value Reference Range Interpretation Comments POC-GLUCOSE METER 191 mg/dL 70-110 H : TESTED A T [facility] 6720 (BEAKER) (test code = [facility], 1538) 74108: Organizational Effectiveness Director/Techni lucy ID = [id number] for An derson, Bina POCT-GLUCOSE [id number] 11:29:27 Test Item Value Reference Range Interpretation Comments POC-GLUCOSE METER 209 mg/dL 70-110 H : TESTED A T [facility] 6720 (BEAKER) (test code = [facility], 1538) 50086: Organizational Effectiveness Director/Techni lucy ID = [id number] for An derson, Bina BASIC METABOLIC [id number] 06:30:06 Test Item Value Reference Range Interpretation [...] S NOT APPLICABLE FOR DIALYSIS PATIEN TS. Organizational Effectiveness Director ID - ESTRADA MCBC W/PLT COUNT & AUTO [id number] 05:32:16 Test Item Value Reference Range Interpretation [...] PERCENT (BEAKER) (test code = 2801) POCT-GLUCOSE [id number] 21:11:15 Test Item Value Reference Range Interpretation Comments POC-GLUCOSE METER 179 mg/dL 70-110 H : TESTED A T [facility] 6720 (BEAKER) (test code = [facility], 153) 21922: Organizational Effectiveness Director/Techni lucy ID = [id number] for Danae Robertoarabella POCT-GLUCOSE [id number] 17:05:43 Test Item Value Reference Range Interpretation Comments POC-GLUCOSE METER 152 mg/dL 70-110 H : TESTED A T [facility] 6720 (BEAKER) (test code = [facility], 1538) 45749: Organizational Effectiveness Director/Techni lucy ID = [id number] for ALFREDA DELEON POCT-GLUCOSE [id number] 15:29:50 Test Item Value Reference Range Interpretation Comments POC-GLUCOSE METER 177 mg/dL 70-110 H : TESTED A T [facility] 6720 (BEAKER) (test code = [facility], 153) 00994: Organizational Effectiveness Director/Techni lucy ID = [id number] for JOSE BASSETT POCT-GLUCOSE [id number] 08:25:18 Test Item Value Reference Range Interpretation Comments POC-GLUCOSE METER 174 mg/dL 70-110 H : TESTED Kathie Blanco [facility] 6720 (BEAKER) (test code = [place], 1538) 58187: Organizational Effectiveness Director/Techni lucy ID = [id number] for JOSE BASSETT (CELLAVISION MANUAL DIFF)2021-09-22 07:24:33 Test Item Value [...] 965) ARTIFACT (CELLAVISION)(BEAKER) Present (test code = 4362) PLATELET CONCENTRATION Adequate (CELLAVISION)(BEAKER) (test code = 1337) Organizational Effectiveness Director ID - claudia Hoyt comments: Slide comments:CBC W/PLT COUNT & AUTO [id number] 07:24:32 Test Item Value Reference Range Interpretation [...] (BEAKER) (test code = 413) BASIC METABOLIC [id number] 05:28:03 Test Item Value Reference Range Interpretation [...] S NOT APPLICABLE FOR DIALYSIS PATIEN TS. Organizational Effectiveness Director ID - ESTRADA MPOCT-GLUCOSE [id number] 21:57:41 Test Item Value Reference Range Interpretation Comments POC-GLUCOSE METER 192 mg/dL 70-110 H : TESTED A T [facility] 6720 (BEAKER) (test code = [facility], 1538) 25764: Organizational Effectiveness Director/Techni lucy ID = [id number] for Josephine Roberto POCT-GLUCOSE [id number] 17:57:30 Test Item Value Reference Range Interpretation Comments POC-GLUCOSE METER 183 mg/dL 70-110 H : TESTED A T [facility] 6720 (BEAKER) (test code = [facility], 1538) 05305: Organizational Effectiveness Director/Techni lucy ID = [id number] for JOSE BASSETT HEPATIC FUNCTION [id number] 16:01:45 Test Item Value Reference Range Interpretation [...] (test code = 11 U/L 6-55 347) Organizational Effectiveness Director ID - ESTRADA MOperator ID - ESTRADA [id number] 15:56:05 Test Item Value Reference Range Interpretation Comments PHOSPHORUS (BEAKER) (test code = 3.5 mg/dL 2.3-4.7 604) Organizational Effectiveness Director ID - ESTRADA MC-REACTIVE [id number] 15:56:05 Test Item Value Reference Range Interpretation Comments C-REACTIVE PROTEIN (BEAKER) (test 15.79 mg/dL 0.00-0.50 H code = 676) Organizational Effectiveness Director ID - ESTRADA MBASIC METABOLIC [id number] 15:56:04 Test Item Value Reference Range Interpretation [...] S NOT APPLICABLE FOR DIALYSIS PATIEN TS. Organizational Effectiveness Director ID - ESTRADA [id number] 15:56:04 Test Item Value Reference Range Interpretation Comments MAGNESIUM (BEAKER) (test code = 1.7 mg/dL 1.6-2.6 627) Organizational Effectiveness Director ID - ESTRADA MCBC W/PLT COUNT & AUTO [id number] 14:57:10 Test Item Value Reference Range Interpretation [...] PERCENT (BEAKER) (test code = 2801) POCT-GLUCOSE [id number] 12:33:22 Test Item Value Reference Range Interpretation Comments POC-GLUCOSE METER 162 mg/dL 70-110 H : TESTED A T [facility] 6720 (BEAKER) (test code = [place], 1538) 8[address]: Organizational Effectiveness Director/Techni lucy ID = [id number] for RO DGERS, PAULINAECA POCT-GLUCOSE [id number] 08:13:06 Test Item Value Reference Range Interpretation Comments POC-GLUCOSE METER 180 mg/dL 70-110 H : TESTED A T [facility] 6720 (BEAKER) (test code = [facility], 1538) 13271: Organizational Effectiveness Director/Techni lucy ID = [id number] for RO DGERS, JAMECA POCT-GLUCOSE [id number] 20:39:42 Test Item Value Reference Range Interpretation Comments POC-GLUCOSE METER 175 mg/dL 70-110 H : TESTED A T [facility] 6720 (BEAKER) (test code = [facility], 1538) 73835: Organizational Effectiveness Director/Techni lucy ID = [id number] for Jeremy tiwari Steph POCT-GLUCOSE [id number] 17:10:08 Test Item Value Reference Range Interpretation Comments POC-GLUCOSE METER 188 mg/dL 70-110 H : TESTED A T [facility] 6720 (BEAKER) (test code = [facility], 1538) 19384: Organizational Effectiveness Director/Techni lucy ID = [id number] for OJ LEONOR, ARIAN POCT-GLUCOSE [id number] 11:49:26 Test Item Value Reference Range Interpretation Comments POC-GLUCOSE METER 180 mg/dL 70-110 H : TESTED A T [facility] 6720 (BEAKER) (test code = [facility], 1538) 12624: Organizational Effectiveness Director/Techni lucy ID = [id number] for OJ LEONOR, ARIAN POCT-GLUCOSE [id number] 17:09:11 Test Item Value Reference Range Interpretation Comments POC-GLUCOSE METER 174 mg/dL 70-110 H : TESTED A T [facility] 6720 (BEAKER) (test code = [facility], 1538) 10807: Organizational Effectiveness Director/Techni lucy ID = [id number] for An derson, Bina POCT-GLUCOSE [id number] 11:42:24 Test Item Value Reference Range Interpretation Comments POC-GLUCOSE METER 175 mg/dL 70-110 H : TESTED A T [facility] 6720 (BEAKER) (test code = [facility], 1538) 39894: Organizational Effectiveness Director/Techni lucy ID = [id number] for An derson, Bina MR, SPINE, LUMBAR, [id number] 10:43:00Unlisted Reason for Exam - Click Yes and Enter Reason Below->No [facility] : 1970 Sex: [...] soft tissue without significant psoas enhancement. Left L5-S6gniqk effusion without adjacent enhancement or loss of [...] Pineda MDReport Verified Date/Time: 09/19/2021 10:43:41 POCT-GLUCOSE [id number] 07:25:08 Test Item Value Reference Range Interpretation Comments POC-GLUCOSE METER 181 mg/dL 70-110 H : TESTED Kathie Blanco [facility] 6720 (BEAKER) (test code = [place], 1538) 26612: Organizational Effectiveness Director/Techni lucy ID = [id number] for An Bina loja C-REACTIVE [id number] 05:36:13 Test Item Value Reference Range Interpretation Comments C-REACTIVE PROTEIN (BEAKER) (test 15.70 mg/dL 0.00-0.50 H code = 676) Organizational Effectiveness Director ID - ESTRADA MCOMPREHENSIVE METABOLIC [id number] 05:36:12 Test Item Value Reference Range Interpretation [...] S NOT APPLICABLE FOR DIALYSIS PATIEN TS. Organizational Effectiveness Director ID - ESTRADA MSARS-COV2/RT-PCR ([facility])2021-09-19 01:23:23 Test Item Value Reference Range Interpretation Comments SARS-COV2/RT-PCR Negative Negative The SARS-Co V-2 target (test code = nucleic acids a re not [id number]) detected in thi s specimen. Negative result [...] revoked sooner. Fact Sheet for Healthcare Providers: https://[employer] m/Documents/Xpert%20Xpress%20SARS%20CoV-2/Fact%20Sheets/302-3802%63XMSQ-UYD-6%20 HEALTHCARE%20PROVIDERS%20FACT%20SHEET.pdf Fact Sheet for Healthcare Patients: https://www.[employer]/Documents/Xpert%20Xp ress%20SARS%20CoV-2/Fact%20Sheets/302-3801%90VURD-SPL-7%20PATIENT%20FACT%20SHEET .pdfPOCT-GLUCOSE [id number] 22:10:31 Test Item Value Reference Range Interpretation Comments POC-GLUCOSE METER 176 mg/dL 70-110 H : [facility] ([facility]ER[facility] (test code = [place], 1538) 78830: Organizational Effectiveness Director/Techni lucy ID = [id number] for Steph Kumar [id number] 19:54:47 Test Item Value Reference Range Interpretation Comments PHOSPHORUS (BEAKER) (test code = 2.8 mg/dL 2.3-4.7 604) Organizational Effectiveness Director ID - DBBASIC METABOLIC [id number] 19:54:46 Test Item Value Reference Range Interpretation [...] S NOT APPLICABLE FOR DIALYSIS PATIEN TS. Organizational Effectiveness Director ID - [id number] 19:54:46 Test Item Value Reference Range Interpretation Comments MAGNESIUM (BEAKER) (test code = 1.7 mg/dL 1.6-2.6 627) Organizational Effectiveness Director ID - [id number] 19:51:43 Test Item Value Reference Range Interpretation Comments PARTIAL THROMBOPLASTIN TIME 38.0 seconds 22.5-36.0 H (BEAKER) (test code = 760) [id number] 19:51:43 Test Item Value Reference Range Interpretation [...] 2.5-3.5 for patients with mechanical heart valves.PROTHROMBIN TIME/[id number] 19:51:01 Test Item Value Reference Range Interpretation Comments PROTIME (BEAKER) 17.3 seconds 11.9-14.2 H (test code = 759) INR (BEAKER) (test 1.44 See_Comment [Automat ed message] code = 370) The system for; to (do) generated this result transmitted ref erence range: <=5.90. The reference range was not used to int erpret this result as normal/abnormal . RECOMMENDED COUMADIN/WARFARIN INR THERAPY RANGESSTANDARD DOSE: 2.0 - 3.0 Includes: PROPHYLAXIS for venous thrombosis, systemic embolization; TREATMENT for venous thrombosis and/or pulmonary embolus.HIGH RISK: Target INR is 2.5-3.5 for patients with mechanical heart valves.CBC W/PLT COUNT & AUTO [id number] 19:37:43 Test Item Value Reference Range Interpretation [...] PERCENT (BEAKER) (test code = 2801) POCT-GLUCOSE [id number] 17:15:12 Test Item Value Reference Range Interpretation Comments POC-GLUCOSE METER 147 mg/dL 70-110 H : TESTED A T [facility] 6720 (JESSICA) (test code = SH[place] Dunn [place], 1538) 17944: Organizational Effectiveness Director/Techni lucy ID = [id number] for An Bina loja XR FOOT 3+ VW [id number] 20:59:26 1. ?Neuropathic right mid foot. RL: [...] fifth phalanx.IMPRESSION1. Neuropathic right mid foot.RL: [facility]
[2023-05-12 09:08] LABS: Albumin 2.9 g/dL (3.4-5.0); Bilirubin Direct 0.2 mg/dL (0-0.2); Bilirubin Indirect, Calculated 0.4 mg/dL (0.2-0.8); Bilirubin Total 0.6 mg/dL (0.2-1.0); Magnesium 1.4 mg/dL (1.6-2.4); Potassium 3.4 mEq/L (3.5-5.1); Protein, Total 7.3 g/dL (6.4-8.2); Troponin High Sensitivity 34.5 pg/mL (<58.9)
[2023-05-12 09:09] LABS: Absolute Lymphocytes (CBC) 1.7 K/uL (0.7-4.9); Hematocrit 30.9 % (39.6-49.0); Lymphocytes % 26.1 % (15.3-44.8); MCV 88.8 fL (80-100); MPV 6.4 fL (7.6-11.3); Platelets 247 thou/uL (152-406); RBC Red Blood Cell Count 3.48 M/uL (4.33-5.43)
--- NOTE | 2023-05-12 09:59 | RAD REPORT ---
EXAM DESCRIPTION: RAD - Chest Single View - 05/12/2023 9:34 am CLINICAL HISTORY: DYSPNEA Chest pain. COMPARISON: Chest Single View dated 04/26/2023; Chest Single View dated 04/07/2023; Chest Single View d ated 03/28/2023; Chest Single View dated 10/01/2021 FINDINGS: Portable technique limits examination quality. Moderate bilateral pulmonary opacities are present likely representing pulmonary edema or pneumonia. The heart is mildly enlarged in size. No displaced fractures. IMPRESSION: Mild to moderate CHF is suspected.
--- NOTE | 2023-05-12 10:22 | EDPHYS ---
Physician Documentation [facility] Name: Roverto Figueroa Age: 52 yrs Sex: Male : 1970 Arrival Date: 05/12/2023 Time: 08:19 Bed 2 Private MD: ED Physician Ronal Houston HPI: 05/12 10:51 This 52 yrs old Male presents to ER via EMS with complaints of Shortness Of Breath. rt 10:51 Patient presents to the ED with dyspnea. This has been intermittent over the past rt several days. States that it gets worse overnight. Patient denies any history of CHF. Denies chest pain. Denies other acute complaints at this time, symptoms are moderate in severity, no other aggravating or alleviating factors.. Historical: - Allergies: : No Known Allergies; kc6 - PMHx: 08:24 Diabetes - NIDDM; Hypertension; kc6 - PSHx: 08:24 toe amputation; right BKA; kc6 - Immunization history:: Client reports receiving the 2nd dose of the Covid vaccine, Flu vaccine is up to date. - Social history:: Smoking status: Patient/guardian denies using tobacco. - Family history:: not pertinent. ROS: 10:51 Constitutional: Negative for fever, chills, and weight loss, Cardiovascular: Negative rt for chest pain, palpitations, and edema, Abdomen/GI: Negative for abdominal pain, nausea, vomiting, diarrhea, and constipation, MS/Extremity: Negative for injury and deformity, Skin: Negative for injury, rash, and discoloration, Neuro: Negative for headache, weakness, numbness, tingling, and seizure, Psych: Negative for depression, anxiety, suicide ideation, homicidal ideation, and hallucinations. 10:51 Respiratory: Positive for cough, shortness of breath. Exam: 10:51 Constitutional: This is a well developed, well nourished patient who is awake, alert, rt and in no acute distress. Chest/axilla: Normal chest wall appearance and motion. Nontender with no deformity. No lesions are appreciated. Cardiovascular: Regular rate and rhythm with a normal S1 and S2. No gallops, murmurs, or rubs. Normal PMI, no JVD. No pulse deficits. Skin: Warm, dry with normal turgor. Normal color with no rashes, no lesions, and no evidence of cellulitis. Neuro: Awake and alert, GCS 15, oriented to person, place, time, and situation. Cranial nerves II-XII grossly intact. Motor strength 5/5 in all extremities. Sensory grossly intact. Cerebellar exam normal. Normal gait. Psych: Awake, alert, with orientation to person, place and time. Behavior, mood, and affect are within normal limits. 10:51 ECG was reviewed by the Attending Physician. 10:51 Respiratory: Faint bibasilar crackles, no respiratory distress. 10:51 Musculoskeletal/extremity: Right leg below the knee amputation, trace pretibial edema on left leg. Vital Signs: 08:23 BP 190 / 109; Pulse 106; Resp 20; Temp 98.2(O); Pulse Ox 96% on R/A; Weight 108.86 kg kc6 (R); Height 6 ft. 0 in. (R); Pain 0/10; 09:02 BP 175 / 98; Pulse 105; Resp 20 S; Pulse Ox 91% on R/A; kc6 10:43 BP 170 / 97; Pulse 98; Resp 20 S; Pulse Ox 95% on R/A; kc6 11:29 BP 180 / 101; Pulse 101; Resp 20; Pulse Ox 99% on R/A; kc6 12:06 BP 167 / 102; Pulse 96; Resp 19; Pulse Ox 96% on R/A; mb9 13:57 BP 141 / 89; Pulse 92; Resp 20; Pulse Ox 95% on R/A; mb9 08:23 Body Mass Index 32.55 (108.86 kg, 182.88 cm) kc6 08:23 Pain Scale: Adult kc6 MDM: 08:26 Patient medically screened. rt 10:53 Differential diagnosis: CHF, pneumonia, pneumothorax. Data reviewed: vital signs, rt nurses notes, lab test result(s), EKG, radiologic studies. Consideration of Admission/Observation Patient was admitted/placed on observation. Management of patient was discussed with the following: Hospitalist: Agrees to admit. I considered the following discharge prescriptions or medication management in the emergency department Medications were administered in the Emergency Department. See MAR. Independent interpretation of the following test(s) in the Emergency Department X-Ray: My interpretation is Pulmonary edema seen on interpretation of the x-ray images. Test considered but Not performed: CT: Low suspicion for PE, CT angiogram not indicated. Counseling: I had a detailed discussion with the patient and/or guardian regarding the historical points, exam findings, and any diagnostic results supporting the discharge/admit diagnosis, lab results, radiology results, the need for further work-up and treatment in the hospital. 05/12 08:26 Order name: Basic Metabolic Panel; Complete Time: 09:17 rt 05/12 08:26 Order name: CBC with Diff; Complete Time: 09:17 rt 05/12 08:26 Order name: LFT's; Complete Time: 09:17 rt 05/12 08:26 Order name: Magnesium; Complete Time: 09:17 rt 05/12 08:26 Order name: NT PRO-BNP; Complete Time: 09:17 rt 05/12 08:26 Order name: Troponin HS; Complete Time: 09:17 rt 05/12 12:49 Order name: CBC with Automated Diff EDMS 05/12 12:49 Order name: CBC with Automated Diff EDMS 05/12 12:49 Order name: Comprehensive Metabolic Panel EDMS 05/12 12:49 Order name: Comprehensive Metabolic Panel EDMS 05/12 12:49 Order name: Lipid Profile EDMS 05/12 12:49 Order name: Lipid Profile EDMS 05/12 12:50 Order name: Magnesium EDMS 05/12 12:50 Order name: Magnesium EDMS 05/12 12:50 Order name: NT PRO-BNP EDMS 05/12 12:50 Order name: NT PRO-BNP EDMS 05/12 12:50 Order name: Phosphorus EDMS 05/12 12:50 Order name: Phosphorus EDMS 05/12 12:50 Order name: Troponin High Sensitivity EDMS 05/12 08:26 Order name: XRAY Chest (1 view); Complete Time: 10:00 rt 05/12 12:49 Order name: Echo with Doppler EDMS 05/12 12:49 Order name: Echo with Doppler EDMS 05/12 08:26 Order name: EKG; Complete Time: 08:27 rt 05/12 12:49 Order name: CONS Physician Consult EDMS 05/12 12:49 Order name: Low Sodium EDMS 05/12 08:26 Order name: Cardiac monitoring; Complete Time: 08:29 rt 05/12 08:26 Order name: EKG - Nurse/Tech; Complete Time: 08:42 rt 05/12 08:26 Order name: IV Saline Lock; Complete Time: 08:42 rt 05/12 08: Order name: Labs collected and sent; Complete Time: :42 rt 05/12 08: Order name: O2 Per Protocol; Complete Time: rt 05/12 08: Order name: O2 Sat Monitoring; Complete Time: 08:29 rt EC:51 Rate is 102 beats/min. Rhythm is regular, Sinus tachycardia with No ectopy. QRS [place] is rt Normal. [place] interval is normal. QRS interval is normal. QT interval is normal. No Q waves. T waves are Normal. No ST changes noted. Interpreted by me. Administered Medications: 10:41 Drug: Furosemide IVP 40 mg Route: IVP; Site: right antecubital; kc6 11:30 Follow up: Response: No adverse reaction kc6 10:41 Drug: Nitroglycerin Transdermal Ointment 2 % 1 inches Route: Transdermal; Site: kc6 anterior chest wall; 11:29 Follow up: Response: No adverse reaction kc6 Disposition Summary: 05/12/23 10:21 Hospitalization Ordered Hospitalization Status: Observation rt Provider: Mirian Jamison rt Location: Telemetry/MedSurg (observation) rt Condition: Stable rt Problem: new rt Symptoms: have improved rt Bed/Room Type: Standard rt Room Assignment: 209(05/12/23 14:02) bc6 Diagnosis - Pulmonary edema rt Forms: - Medication Reconciliation Form rt - SBAR form rt - Leadership Thank You Letter rt Signatures: Dispatcher [employer] Samira Gipson RN RN kc6 Ronal Houston MD MD rt Jacqui Betancur bc6 Corrections: (The following items were deleted from the chart) 14:02 10:21 rt bc6
--- NOTE | 2023-05-12 10:22 | ER ---
Nurse's Notes [facility] Name: Roverto Figueroa Age: 52 yrs Sex: Male : 1970 Arrival Date: 05/12/2023 Time: 08:19 Bed 2 Private MD: Diagnosis: Pulmonary edema Presentation: 05/12 08:23 Chief complaint: EMS states: shortness of breath for the past few days, worse this kc6 morning at 0430. Coronavirus screen: At this time, the client does not indicate any symptoms associated with coronavirus-19. Ebola Screen: No symptoms or risks identified at this time. Initial Sepsis Screen: Does the patient meet any 2 criteria? HR > 90 bpm. No. Patient's initial sepsis screen is negative. Does the patient have a suspected source of infection? No. Patient's initial sepsis screen is negative. Risk Assessment: Do you want to hurt yourself or someone else? Patient reports no desire to harm self or others. Onset of symptoms was May 12, 2023. 08:23 Method Of Arrival: EMS: [facility] 6 08:23 Acuity: KAMRYN 3 kc6 Triage Assessment: 08:24 General: Appears in no apparent distress. comfortable, Behavior is calm, cooperative, kc6 appropriate for age. Pain: Denies pain. EENT: No signs and/or symptoms were reported regarding the EENT system. Neuro: Level of Consciousness is awake, alert, obeys commands, Oriented to person, place, time, situation, Appropriate for age. Cardiovascular: Capillary refill < 3 seconds Rhythm is sinus tachycardia. Respiratory: Reports shortness of breath at rest on exertion Airway is patent Trachea midline Respiratory effort is even, unlabored, Respiratory pattern is regular, symmetrical, Onset: The symptoms/episode began/occurred this morning, the patient has mild shortness of breath. GI: Reports nausea, vomiting, Patient currently denies abdominal pain, diarrhea. : No signs and/or symptoms were reported regarding the genitourinary system. Derm: No signs and/or symptoms reported regarding the dermatologic system. Skin is intact, is healthy with good turgor, Skin is pink, warm \T\ dry. Musculoskeletal: No signs and/or symptoms reported regarding the musculoskeletal system. Circulation, motion, and sensation intact. Capillary refill < 3 seconds, Range of motion: intact in all extremities. Historical: - Allergies: 08:24 No Known Allergies; kc6 - PMHx: 08:24 Diabetes - NIDDM; Hypertension; kc6 - PSHx: 08:24 toe amputation; right BKA; kc6 - Immunization history:: Client reports receiving the 2nd dose of the Covid vaccine, Flu vaccine is up to date. - Social history:: Smoking status: Patient/guardian denies using tobacco. - Family history:: not pertinent. Screenin:[facility] ED Fall Risk Assessment (Adult) History of falling in the last 3 months, kc6 including since admission No falls in past 3 months (0 pts) Confusion or Disorientation No (0 pts) Intoxicated or Sedated No (0 pts) Impaired Gait Yes (1 pt) Mobility Assist Device Used No (0 pt) Altered Elimination No (0 pt) Score/Fall Risk Level 0 - 2 = Low Risk. Abuse screen: Denies threats or abuse. Denies injuries from another. Nutritional screening: No deficits noted. Tuberculosis screening: No symptoms or risk factors identified. Assessment: 08:23 Reassessment: please see triage assessment. kc6 09:23 Reassessment: Patient appears in no apparent distress at this time. No changes from kc6 previously documented assessment. Patient and/or family updated on plan of care and expected duration. Pain level reassessed. Patient is alert, oriented x 3, equal unlabored respirations, skin warm/dry/pink. 10:23 Reassessment: Patient appears in no apparent distress at this time. No changes from kc6 previously documented assessment. Patient and/or family updated on plan of care and expected duration. Pain level reassessed. Patient is alert, oriented x 3, equal unlabored respirations, skin warm/dry/pink. 11:23 Reassessment: Patient appears in no apparent distress at this time. No changes from kc6 previously documented assessment. Patient and/or family updated on plan of care and expected duration. Pain level reassessed. Patient is alert, oriented x 3, equal unlabored respirations, skin warm/dry/pink. 12:04 Reassessment: pt voided 1,925 mL of clear yellow urine. kc6 12:35 Reassessment: No changes from previously documented assessment. Patient and/or family mb9 updated on plan of care and expected duration. Pain level reassessed. Patient is alert, oriented x 3, equal unlabored respirations, skin warm/dry/pink. 13:57 Reassessment: No changes from previously documented assessment. Patient and/or family mb9 updated on plan of care and expected duration. Pain level reassessed. Patient is alert, oriented x 3, equal unlabored respirations, skin warm/dry/pink. Vital Signs: 08:23 BP 190 / 109; Pulse 106; Resp 20; Temp 98.2(O); Pulse Ox 96% on R/A; Weight 108.86 kg kc6 (R); Height 6 ft. 0 in. (R); Pain 0/10; 09:02 BP 175 / 98; Pulse 105; Resp 20 S; Pulse Ox 91% on R/A; kc6 10:43 BP 170 / 97; Pulse 98; Resp 20 S; Pulse Ox 95% on R/A; kc6 11:29 BP 180 / 101; Pulse 101; Resp 20; Pulse Ox 99% on R/A; kc6 12:06 BP 167 / 102; Pulse 96; Resp 19; Pulse Ox 96% on R/A; mb9 13:57 BP 141 / 89; Pulse 92; Resp 20; Pulse Ox 95% on R/A; mb9 08:23 Body Mass Index 32.55 (108.86 kg, 182.88 cm) kc6 08:23 Pain Scale: Adult kc6 ED Course: 08:23 Patient arrived in ED. kc6 08:24 Triage completed. kc6 08:24 Arm band placed on. kc6 08:26 Ronal Houston MD is Attending Physician. rt 08:26 Samira Salazar RN is Primary Nurse. kc6 08:26 Patient has correct armband on for positive identification. Placed in gown. Bed in low kc6 position. Call light in reach. Side rails up X2. Client placed on continuous cardiac and pulse oximetry monitoring. NIBP monitoring applied. air sampling and monitoring on. 08:42 Inserted saline lock: 22 gauge in right antecubital area, using aseptic technique. kc6 Blood collected. Patient maintains SpO2 saturation greater than 95% on room air. 09:36 XRAY Chest (1 view) In Process Unspecified. EDMS 10:21 Mirian Jamison MD is Hospitalizing Provider. rt 12:07 Report received from JOEY Hogan. mb9 14:10 No provider procedures requiring assistance completed. Patient admitted, IV remains in mb9 place. Administered Medications: 10:41 Drug: Furosemide IVP 40 mg Route: IVP; Site: right antecubital; kc6 11:30 Follow up: Response: No adverse reaction kc6 10:41 Drug: Nitroglycerin Transdermal Ointment 2 % 1 inches Route: Transdermal; Site: kc6 anterior chest wall; 11:29 Follow up: Response: No adverse reaction [facility] Medication: 14:11 VIS not applicable for this client. mb9 Outcome: 10:21 Decision to Hospitalize by Provider. rt 14:10 Admitted to Med/surg accompanied by tech, via stretcher, room 209, with chart, Report mb9 called to JOEY Valadez 14:10 Condition: stable 14:10 Instructed on the need for admit. 14:45 Patient left the ED. bp Signatures: Dispatcher [employer] EDMS Vance Ferraro RN RN Smaira Mello RN RN [email or web address] Marissa Wagner RN RN mb9 Ronal Houston MD MD rt
[2023-05-12] MEDS ORDERED: FUROSEMIDE 40 MG/4 ML VIAL ONE (10:43)
[2023-05-12] MEDS ORDERED: NITROGLYCERIN 1 GM PKT TD ONE (10:43)
[2023-05-12] MEDS ORDERED: ONDANSETRON 4 MG/2 ML VIAL IV PRN (12:44)
[2023-05-12] MEDS ORDERED: ACETAMINOPHEN 500 MG TAB PO PRN (12:44)
[2023-05-12 15:39] VITALS: BMI 31.8
[2023-05-12] MEDS: FUROSEMIDE 40 MG/4 ML VIAL IV SCH (16:34)
[2023-05-12] MEDS ORDERED: TEMAZEPAM 15 MG CAP PO PRN (17:32)
[2023-05-12] MEDS ORDERED: SMZ./TMP. 800/160 MG TABLET PO ONE (17:45)
--- NOTE | 2023-05-12 20:37 | CON ---
Date of Consultation: 05/12/2023 Reason For Consultation: Heart failure exacerbation. History Of Present Illness: A 52-year-old male with known history of congestive heart failure, and e jection fraction being normal on study that was done on March this year, likely with diastolic dysfunc tion, presented with significant shortness of breath, orthopnea, and lower extremity edema. He was g iven Lasix 1 dose and he has put out large amount of urine already and he is feeling much better. De nies having any chest pain. Past Medical History: Congestive heart failure, hypertension, diabetes. Medications: Refer reconciliation sheet for detailed list. Allergies: NO KNOWN DRUG ALLERGIES. Past Surgical History: [id number] amputation on the right. Family History: No premature coronary artery disease or cancer. Social History: Does not smoke or drink. Does not use any drugs. Review of Systems: All systems were reviewed. They were negative except as mentioned in HPI. Physical Examination: Vital Signs: Reviewed. Head and Neck: Pupils are equal and reactive to light. Intact eye movements. No JVD. No cervical lymphadenopathy. Neck is supple. Thyroid is not enlarged. Lungs: He has faint crackles on the bases. No accessory muscle use or muscle retraction. Heart: Regular rate and rhythm. No extra sounds. Abdomen: Soft, nontender. Bowel sounds positive. No organomegaly. No masses or hernia. No rigidi ty or rebound. Extremities: No clubbing or cyanosis. Positive edema. Neurologic: Alert, awake. No acute focal deficits appreciated. Investigations: BUN 5, creatinine 0.9, and NT-proBNP is 1687. Troponins x2 are negative. Hemoglobi n 10.6. Assessment And Plan: 1.Acute on chronic diastolic heart failure exacerbation. Significant improvement with Lasix, contin ue 40 mg IV q.12 hours. Monitor BUN, creatinine, electrolytes. 2.Hypertension. Blood pressure is elevated. Should improve with further diuresis and medications t o be adjusted once he is euvolemic. SR/MODL Voice ID: [id number] Report ID: [id number]
[2023-05-12] MEDS: POTASSIUM 25 MEQ EFFERV TAB PO SCH (21:03)
[2023-05-12] MEDS: METOPROLOL TAR 25 MG TAB PO SCH (21:03)
[2023-05-12] MEDS: APIXABAN 5 MG TABLET PO SCH (21:04)
[2023-05-12 22:13] VITALS: O2SAT 93
[2023-05-13] MEDS ORDERED: TRAMADOL HCL 50 MG TAB PO PRN (00:21)
[2023-05-13] MEDS ORDERED: MORPHINE 4 MG/ML SYR IV ONE (00:22)
[2023-05-13 06:58] LABS: Absolute Lymphocytes (CBC) 2.7 K/uL (0.7-4.9); Lymphocytes % 31.8 % (15.3-44.8); MCV 89.1 fL (80-100); MPV 6.4 fL (7.6-11.3); Platelets 229 thou/uL (152-406)
[2023-05-13 07:20] LABS: Albumin 2.8 g/dL (3.4-5.0); Magnesium 1.4 mg/dL (1.6-2.4); Phosphorus 3.8 mg/dL (2.5-4.9); Protein, Total 6.9 g/dL (6.4-8.2)
--- NOTE | 2023-05-13 07:37 | RAD REPORT ---
EXAM DESCRIPTION: RAD - Chest Single View - 05/13/2023 4:26 am CLINICAL HISTORY: pneumonia Chest pain. COMPARISON: Chest Single View dated 05/12/2023; Chest Single View dated 04/26/2023; Chest Single View d ated 04/07/2023; Chest Single View dated 03/28/2023 FINDINGS: Portable technique limits examination quality. Since prior study dated 05/12/2023, moderate airspace consolidation appears to be developing in the r ight lung base suggesting pneumonia. This appears superimposed on moderate bilateral interstitial shakeel g opacities. The heart is mildly enlarged. Small loose bodies are seen left shoulder joint. IMPRESSION: Airspace infiltrate pattern suspected right lung base superimposed on CHF findings. This would suggest moderate pneumonia developing.
[2023-05-13] MEDS ORDERED: SMZ./TMP. 800/160 MG TABLET PO SCH (08:00)
--- NOTE | 2023-05-13 08:15 | P.HP ---
Certification for Inpatient Patient admitted to: Observation With expected LOS: <2 Midnights Patient will require the following post-hospital care: None Practitioner: I am a practitioner with admitting privileges, knowledge of patient current condition, hospital course, and medical plan of care. Services: Services provided to patient in accordance with Admission requirements found in Title 42 Section 412.3 of the Code of Federal Regulations Patient History Date of Service: 05/13/23 Reason for admission: Pt with CHF, acute exacerbation History of Present Illness: Patient is a 52-year-old gentleman came to the hospital with shortness of breath. Patient has been doing well but he stated he woke up and could not catch his breath. He had dyspnea while laying down. He got out of bed and sat at the side of the bed and was really tachypneic. He decided to come into the emergency room for further evaluation. Patient had a echocardiogram done a c ouple of months ago with a normal ejection fraction but with diastolic dysfunction. Patient most likely with heart failure with preserved ejection fraction. Allergies No Known Allergies Allergy (Verified 04/16/23 13:28) Home Medications: Apixaban [Eliquis] 5 mg PO BID #60 tablet 01/05/22 Amino Acids/Protein Hydrolys [Prosource No Carb Liquid Pkt] 30 ml PO BID packet 04/16/23 Ferrous Sulfate [Ferrous Sulfate*] 325 mg PO BID tab 04/16/23 Pantoprazole [Protonix Tab*] 40 mg PO BIDAC tab 04/16/23 Thiamine HCl [Vitamin B-1*] 100 mg PO DAILY 04/16/23 Insulin Glargine,Hum.rec.anlog [Semglee] 10 units SQ BEDTIME 04/18/23 Protein Supplement [Prosource] 30 ml PO BID 04/18/23 Magnesium Oxide [Mag 0X*] 400 mg PO BID tab 04/29/23 Metformin HCl 250 mg PO BID #30 04/29/23 - Past Medical/Surgical History Has patient received pneumonia vaccine in the past: No Diabetic: Yes -: Hypertension -: Diabetes -: chronic RLE foot wound -: Right BKA -: Amputation of right toe 2016 -: Femoral Stent -: Right below the knee amputaion march 2023 - Family History Father Medical History: Cancer, Other (see notes) Notes: bladder cancer 2001 - Social History Smoking Status: Former smoker Alcohol use: No CD- Drugs: No Caffeine use: No Place of Residence: Home Review of Systems 10-point ROS is otherwise unremarkable Physical Examination - Vital Signs Temperature: 97.6 F Blood Pressure: 149/98 Pulse: 75 Respirations: 18 Pulse Ox (%): 94 - Physical Exam General: Alert, In no apparent distress, Oriented x3 HEENT: Atraumatic, PERRLA, Mucous membr. moist/pink, EOMI, Sclerae nonicteric Neck: Supple, 2+ carotid pulse no bruit, No LAD, Without JVD or thyroid abnormality Respiratory: Clear to auscultation bilaterally, Normal air movement Cardiovascular: Regular rate/rhythm, Normal S1 S2, No murmurs Gastrointestinal: Normal bowel sounds, Soft and benign, Non-distended, No tenderness, No rebound, No guarding Musculoskeletal: No clubbing, No swelling, No tenderness Integumentary: No rashes Neurological: Normal gait, Normal speech, Normal strength at 5/5 x4 extr, Normal tone, Normal affect Lymphatics: No axilla or inguinal lymphadenopathy - Studies Laboratory Data (last 24 hrs) 05/12/23 05/12/23 08:40 08:40 WBC 6.50 Hgb 10.6 L Hct 30.9 L Plt Count 247 Sodium 138 Potassium 3.4 L BUN 5 L Creatinine 0.91 Glucose 210 H Magnesium 1.4 L Total Bilirubin 0.6 AST 16 ALT 15 L Alkaline Phosphatase 125 H Assessment & Plan - Problems (Diagnosis) (1) (HFpEF) heart failure with preserved ejection fraction Current Visit: Yes Status: Acute (2) Diabetes Current Visit: No Status: Acute (3) HTN (hypertension) Current Visit: No Status: Acute - Plan PLAN: 1. Echocardiogram 2. Strict blood pressure control 3. Cardiology consultation 4. Aggressive diuresis 5. Strict I's and O's 6. Repeat CXR 7. Daily weights 8. Education regarding diet and treatment of congestive heart failure Discharge Plan: Home Plan to discharge in: 48 Hours - Advance Directives Does patient have a Living Will: No Does patient have a Durable POA for Healthcare: No - Code Status/Comfort Care Code Status Assessed: Yes Code Status: Full Code Critical Care: No Time Spent Managing PTS Care (In Minutes): 45
[2023-05-13] MEDS ORDERED: POTASSIUM CL SA 10 MEQ TAB PO ONE (08:59)
[2023-05-13] MEDS: POTASSIUM 25 MEQ EFFERV TAB PO SCH (08:59)
[2023-05-13] MEDS: APIXABAN 5 MG TABLET PO SCH (09:00)
[2023-05-13] MEDS: METOPROLOL TAR 25 MG TAB PO SCH (09:00)
[2023-05-13] MEDS ORDERED: ENOXAPARIN 40 MG/0.4 ML SQ SCH (09:00)
[2023-05-13] MEDS: FUROSEMIDE 40 MG/4 ML VIAL IV SCH (09:00)
[2023-05-13] MEDS ORDERED: MAGNESIUM CHLORIDE 64 MG TAB PO ONE (11:00)
[2023-05-13 14:06] VITALS: BP 141/90; TEMP 98.4
--- NOTE | 2023-05-13 15:25 | EKG ---
Test Date: 2023-05-12 Test Time: 08:33:02 Rigger Up: ANA MEASUREMENT RESULTS: Intervals: Rate: 102 RI: 178 QRSD: 104 QT: 376 QTc: 490 [place]: P: 51 RI: 178 QRS: 46 T: 50 INTERPRETIVE STATEMENTS: Sinus tachycardia Septal infarct, age undetermined Abnormal ECG Compared to ECG 04/07/2023 12:00:17 Right bundle-branch block no longer present T-wave abnormality no longer present Possible ischemia no longer present Myocardial infarct finding still present Electronically Signed On 05-13-23 15:21:50 CDT by Taras Jama
== END 2023-05-13 11:49 | disposition home or self-care (01) ==
LOC: ER 08:19 → INTOOBSV 12:44 → ERHOLD 12:44 → 2ND 14:16
PROVIDERS: ADMIT Hospitalist; ATTEND Hospitalist
DX: I50.33 Acute on chronic diastolic (congestive) heart failure (principal); I10 Essential (primary) hypertension; E11.9 Type 2 diabetes mellitus without complications
CPT/HCPCS: 93005; 85025 ×2; 80048; 36415; 83735 ×2; 84100; 80061; 82947 ×4; 80076; 84484 ×2; 80053; 83880 ×2; 71045 ×2; 96374; 99285; J1940 ×3; G0378

== ENCOUNTER 2025-05-06 20:02 | Emergency (ER) | payer BC ==
[2025-05-06] MEDS ORDERED: ACETAMINOPHEN 500 MG TAB ONE (20:23)
[2025-05-06] MEDS ORDERED: VANCOMYCIN 1 GM/VIAL ONE (20:23)
[2025-05-06] MEDS ORDERED: CEFEPIME 2 GM VIAL ONE (20:23)
[2025-05-06] MEDS ORDERED: ONDANSETRON 4 MG/2 ML VIAL ONE ×2 (20:23→23:11)
[2025-05-06] MEDS ORDERED: NA CHLORIDE 0.9% 100 ML ONE ×2 (20:24→23:57)
[2025-05-06] MEDS ORDERED: NA CHLORIDE 0.9% 1,000 ML ONE ×3 (20:24→22:26)
[2025-05-06 20:50] LABS: Absolute Lymphocytes (CBC) 0.1 K/uL (0.7-4.9); Hematocrit 43.3 % (39.6-49.0); Hemoglobin 15.2 g/dL (13.6-17.9); MCH 32.0 pg (27.0-35.0); MCHC 35.0 g/dL (32.0-36.0); MCV 91.4 fL (80-100); MPV 7.5 fL (7.6-11.3); Nucleated RBC Absolute Count 0.0 (0-0); Nucleated Red Blood Cells % 0.1 % (0-0); RBC Red Blood Cell Count 4.73 M/uL (4.33-5.43); White Blood Count 3.90 thou/uL (4.3-10.9)
[2025-05-06 20:59] LABS: PT Prothrombin Time 16.8 SECONDS (10-13.0); PTT, Activated Partial Thromb 31.0 SECONDS (27.2-37.4); Protime INR 1.5
[2025-05-06] MEDS ORDERED: MORPHINE 4 MG/ML SYR ONE ×2 (21:11→23:11)
[2025-05-06 21:16] LABS: Influenza A Ag Negative; Influenza B Ag Negative; SARS-CoV-2 Antigen Rapid Res Negative (Negative)
[2025-05-06 21:17] LABS: White Blood Cell Scan OK (OK)
[2025-05-06 21:18] LABS: ALT/SGPT 70.0 U/L (16-61); AST/SGOT 125.0 U/L (15-37); Albumin 2.8 g/dL (3.4-5.0); Albumin/Globulin Ratio 0.7 (1.1-1.8); Alkaline Phosphatase 251.0 U/L (45-117); Anion Gap 14.6 mEq/L (5.0-15.0); Anisocytosis SLIGHT; BUN Blood Urea Nitrogen 12.0 mg/dL (7-18); Blood Morphology Comment NOTED (NOT SEEN); Globulin 4.1 g/dL (2.3-3.5); Glucose Level 243.0 mg/dL (74-106); Macrocytosis SLIGHT; NT PRO-BNP 616.0 pg/mL (<125); Thyroid Stimulating Hormone 1.06 uIU/mL (0.358-3.740); Troponin High Sensitivity 18.7 pg/mL (<58.9)
[2025-05-06 21:23] LABS: Potassium 2.6 mEq/L (3.5-5.1)
[2025-05-06] MEDS ORDERED: NA CHLORIDE 0.9% 500 ML ONE ×2 (21:41→22:26)
--- NOTE | 2025-05-06 21:51 | RAD REPORT ---
EXAM:Extremity Venous Uni Ltd HISTORY: Left leg pain TECHNIQUE: Sonographic evaluation left lower extremity performed.Grayscale, color and spectral gerard sis performed on all vessels COMPARISON: 2023. FINDINGS: Left common femoral, superficial femoral, greater saphenous, popliteal and posterior tibial veins are compressible and demonstrate augmentation. Doppler demonstrates good flow. IMPRESSION: No evidence of deep venous thrombosis involving the left lower extremity.
[2025-05-06 21:55] LABS: Sqamous Epithelial <5 /HPF (None Seen); Urine Micro Reflex YN NO BILL MICROSCOPIC
[2025-05-06] MEDS ORDERED: DIPHENOX/ATROP SULF 1 TAB PO ONE (21:58)
[2025-05-06 22:02] LABS: METHAMPHETAM NEGATIVE (NEGATIVE); THC Cannibis NEGATIVE (NEGATIVE)
--- NOTE | 2025-05-06 22:05 | RAD REPORT ---
EXAM: CT CHEST, ABDOMEN AND PELVIS WITHOUT CONTRAST CLINICAL INDICATION: Chest and abdominal pain TECHNIQUE: CT chest, abdomen and pelvis was performed, without IV contrast, as per department protoco l. Axial, sagittal and coronal reconstructions were obtained. One or more of the following dose reduction techniques were used: Automated exposure control, adjustment of the mA and/or kV according to the patient size, and/or iterative reconstruction. Unless otherwise specified, incidental findings do not require dedicated imaging follow-up. The lack of IV and oral contrast limits evaluation of the mediastinum, sandra, vessels, organs and samuel l. COMPARISON: Interval 2024 CT abdomen FINDINGS: Lungs are clear. Small mediastinal and hilar lymph nodes likely reactive in nature. No pleural effusion. No pericardial effusion. Spleen 17 cm. 5 mm stone distal common bile duct. Common bile duct is dilated. Bile duct wall thickening is present . There is stranding adjacent to the common bile duct. Cholecystectomy. The pancreas, adrenals and kidneys otherwise grossly normal. Right common iliac venous stent in place. Small left inguinal hernia. Stranding adjacent to the second and third portions of the duodenum extending inferiorly. There is no evidence of diverticulitis. Stranding adjacent to the proximal transverse colon IMPRESSION: 5 mm stone distal common bile duct with dilatation of the extrahepatic biliary tree. Thickening of th e wall of the common bile duct with surrounding stranding may indicate cholangitis. Stranding adjacent to the second and third portions of the duodenum extending inferiorly may indicate duodenal inflammation. Stranding adjacent to the proximal transverse colon may indicate colonic information.
[2025-05-06] MEDS ORDERED: POTASSIUM 25 MEQ EFFERV TAB ONE (22:45)
[2025-05-06] MEDS ORDERED: NS KCL 20MEQ 1,000 ML IV ONE (22:51)
--- NOTE | 2025-05-06 23:09 | ER ---
Nurse's Notes [facility] Name: Roverto Figueroa Age: 54 yrs Sex: Male : 1970 Arrival Date: 05/06/2025 Time: 20:02 Bed 4 Private MD: Diagnosis: Cholangitis;Distal biliary duct stone, acute ascending cholangitis;Acute febrile illness, ;Severe sepsis without septic shock Presentation: 05/06 20:01 Chief complaint: EMS states: Patient c/o intermittent chest pain x4 days and tb4 generalized abdominal pain. Had an fall yesterday while sitting in his chair. Coronavirus screen: At this time, the client does not indicate any symptoms associated with coronavirus-19. Ebola Screen: No symptoms or risks identified at this time. Risk Assessment: Do you want to hurt yourself or someone else? Patient reports no desire to harm self or others. Onset of symptoms was May 04, 2025. Care prior to arrival: Oxygen 2 liters Medication(s) given: ASA, 81 mg, x 4. 20:01 Method Of Arrival: EMS: [facility] tb4 20:01 Acuity: KAMRYN 3 tb4 20:01 Care prior to arrival: Medication(s) given: zofran 4 mg. Care prior to arrival: IV tb4 initiated. 18 GA, in the left antecubital area. Activity prior to arrival: nausea. 21:23 Care prior to arrival: Medication(s) given: Glucose check: 221. tb4 Triage Assessment: 21:23 General: Appears distressed, uncomfortable, Behavior is cooperative, agitated, tb4 restless. Pain: Complains of pain in suprapubic area, right upper quadrant, left upper quadrant, right lower quadrant and left lower quadrant. Left arm and left rib pain Pain does not radiate. Pain currently is 8 out of 10 on a pain scale. Quality of pain is described as sharp, Pain began gradually, 2-3 days ago. Is intermittent, Alleviated by nothing. Aggravated by repositioning. EENT: No signs and/or symptoms were reported regarding the EENT system. Neuro: Level of Consciousness is awake, alert, obeys commands, Oriented to person, place, time, situation, Strategic Planning Manager are weak bilaterally Moves all extremities. Gait is unsteady, Speech is normal, Facial symmetry appears normal. Cardiovascular: Reports fatigue, nausea, since Left rib and left arm pain x4 days. Respiratory: Airway is patent Trachea midline Respiratory effort is even, unlabored, Patient on oxygen 2L with stats now 95% Respiratory pattern is regular, symmetrical. GI: Abdomen is round obese, Last BM was May 06, 2025. Bowel sounds present X 4 quads. Reports diarrhea, nausea. : No signs and/or symptoms were reported regarding the genitourinary system. Derm: Skin is intact, is healthy with good turgor, Skin is clammy, Skin is normal, Skin temperature is hot. Musculoskeletal: Amputation of medial aspect of right calf, right ankle and medial aspect of right foot. Circulation, motion, and sensation intact. Capillary refill < 3 seconds, is brisk, fingers. Range of motion: intact in all extremities. Historical: - Allergies: 20:52 No Known Allergies; tb4 - PMHx: 20:52 Diabetes - NIDDM; Hypertension; tb4 - PSHx: 20:52 RIGHT BKA; toe amputation; tb4 - Immunization history:: Adult Immunizations up to date, Pneumococcal vaccine is up to date, Flu vaccine is up to date. - Infectious Disease History:: Denies. - Family history:: not pertinent. Screenin:35 [facility] ED Fall Risk Assessment (Adult) History of falling in the last 3 months, tb4 including since admission Yes- single mechanical fall (1 pt) Confusion or Disorientation No (0 pts) Intoxicated or Sedated No (0 pts) Impaired Gait Yes (1 pt) Mobility Assist Device Used Yes (1 pt) Altered Elimination No (0 pt) Score/Fall Risk Level 3 or more points = High Risk Oriented to surroundings, Maintained a safe environment, Educated pt \T\ family on fall prevention, incl call for assistance when getting out of bed, Utilized family, sitter, or virtual casino cashier manager as indicated. Abuse screen: Denies threats or abuse. Denies injuries from another. Nutritional screening: No deficits noted. Tuberculosis screening: No symptoms or risk factors identified. Assessment: 21:35 General: Appears uncomfortable, ill, Behavior is cooperative. Pain: Complains of pain tb4 in Generalized pain Pain does not radiate. Pain currently is 8 out of 10 on a pain scale. Quality of pain is described as pressure, sharp, Pain began gradually, x4 days Is intermittent. Neuro: Level of Consciousness is awake, alert, obeys commands, Oriented to person, place, time, situation, Strategic Planning Manager are weak bilaterally Moves all extremities. Full function Weakness Gait is unsteady, Speech is normal, Facial symmetry appears normal. GI: Stools are reported to be diarrhea. : No deficits noted. No signs and/or symptoms were reported regarding the genitourinary system. EENT: No deficits noted. No signs and/or symptoms were reported regarding the EENT system. Vital Signs: 20:05 BP 168 / 77; Pulse 112; Resp 24; Temp 100.8(O); Pulse Ox 100% on 2 lpm NC; Weight tb4 122.47 kg; Height 6 ft. 0 in. ; Pain 8/10; 21:10 BP 144 / 93; Pulse 118; Resp 23; Pulse Ox 100% 2 lpm ; Pain 5/10; tb4 21:23 BP 164 / 81; Pulse 120; Temp 101.9; Pulse Ox 92% on R/A; tb4 22:12 BP 114 / 69; Pulse 103; Resp 21; Temp 99(O); Pulse Ox 97% on 2 lpm NC; Pain 4/10; tb4 22:57 BP 121 / 74; Pulse 98; Resp 20; Temp 98.4(O); Pulse Ox 98% on 3 lpm NC; Pain 5/10; tb4 23:39 BP 130 / 77; Pulse 84; Resp 20; Temp 98.4; Pulse Ox 99% on 2 lpm NC; Pain 4/10; tb4 05/07 01:00 BP 129 / 78; Pulse 76; Resp 19; Temp 98.1(O); Pulse Ox 2% on 2 lpm NC; Pain 5/10; tb4 05/06 20:05 Body Mass Index 36.62 (122.47 kg, 182.88 cm) tb4 05/06 20:05 Pain Scale: Adult tb4 21:10 Pain Scale: Adult tb4 22:12 Pain Scale: Adult tb4 22:57 Pain Scale: Adult tb4 23:39 Pain Scale: Adult tb4 05/07 01:00 Pain Scale: Adult tb4 [employer] Coma Score: 06:34 Eye Response: spontaneous(4). Motor Response: obeys commands(6). Verbal Response: sp4 oriented(5). Total: 15. ED Course: 05/06 20:10 Inserted saline lock: 20 gauge in right antecubital area, using aseptic technique. tb4 Blood collected. Flushed with 10 mL NS. 20:13 Patient arrived in ED. kmf 20:14 Baljinder Sprague MD is Attending Physician. sp4 21:14 Initial lab(s) drawn, by me, sent to lab. First set of blood cultures drawn by ED tb4 staff, Second set of blood cultures drawn by ED staff, EKG done, by ED staff, COVID swab sent to lab. ultrasound left lower leg. 21:22 Triage completed. tb4 21:23 Arm band placed on right wrist. EKG completed in triage. Results shown to MD. tb4 Antipyretics given from triage as ordered by an ER provider. Antipyretics given from triage as ordered by an ER provider. EKG done per protocol. Performed by ED Staff. Urine obtained. Labs ordered per protocol. Drawn by ED staff. X-ray ordered. 21:28 Extremity Venous Uni Ltd US In Process Unspecified. EDMS 21:35 Patient has correct armband on for positive identification. Placed in gown. Bed in low tb4 position. Call light in reach. Side rails up X 1. Side rails up X2. Adult w/ patient. Client placed on continuous cardiac and pulse oximetry monitoring. NIBP monitoring applied. school bus monitor on. Pulse ox on. Door closed. Warm blanket given. 21:51 CT Chest Abdomen Pelvis W/O Contrast In Process Unspecified. EDMS 23:06 initiated transfer with kenneth franco \T\[id number]. kmf 23:20 pt will be wait listed at [facility] \T\[id number]. [facility] 08 01:33 No provider procedures requiring assistance completed. tb4 Administered Medications: 05/06 21:44 Drug: Acetaminophen PO 1000 mg PO once Route: PO; tb4 22:10 Follow up: Response: No adverse reaction; Temperature is decreased tb4 21:44 Drug: NS 0.9% IV (30 ml/kg) 30 ml/kg IV at bolus once; Sepsis Protocol; to be given as tb4 a bolus over 90 minutes Route: IV; Rate: bolus; Site: left antecubital; 23:45 Follow up: Response: No adverse reaction; IV Status: Completed infusion tb4 21:44 Drug: Cefepime IVPB 2 grams IVPB at 200 ml/hr once over 30 mins; (mix in NS 100 mL) tb4 Route: IVPB; Rate: 200 ml/hr; Infused Over: 30 mins; Site: left antecubital; 22:10 Follow up: Response: No adverse reaction; IV Status: Completed infusion tb4 21:44 Drug: Ondansetron IVP 8 mg IVP once; over 2 minutes Route: IVP; Site: right antecubital;tb4 22:09 Follow up: Response: No adverse reaction; Nausea is decreased tb4 21:44 Drug: morphine IVP or IV 4 mg IVP once over 4 mins Route: IVP; Infused Over: 4 mins; tb4 Site: left antecubital; 22:09 Follow up: Response: No adverse reaction; Pain is decreased; RASS: Alert and Calm (0) tb4 21:58 Drug: Diphenoxylate-Atropine PO 2 tabs PO once Route: PO; tb4 22:37 Follow up: Response: No adverse reaction tb4 21:59 Drug: vancoMYCIN IVPB 2 grams IVPB at calculated rate once Route: IVPB; Rate: tb4 calculated rate; Site: right antecubital; 05/07 00:11 Follow up: Response: No adverse reaction; IV Status: Completed infusion tb4 05/06 22:50 Not Given (Physician Discretion): ns 0.45 % with kcl20 meq/l 1000 ml IV at 125 ml/hr br2 once 22:55 Drug: Potassium PO Effervescent Tablet 50 mEq PO once; dissolve in 4 ounces of water or tb4 juice Route: PO; 23:44 Follow up: Response: No adverse reaction tb4 22:55 Drug: NS 0.9% with KCl IV 20 mEq/L 1000 ml IV at 125 ml/hr continuous Route: IV; Rate: tb4 125 ml/hr; Site: left antecubital; 23:17 Drug: morphine IVP or IV 4 mg IVP once over 4 mins Route: IVP; Infused Over: 4 mins; tb4 Site: left antecubital; 23:44 Follow up: Response: No adverse reaction; Pain is decreased; RASS: Alert and Calm (0) tb4 23:17 Drug: Ondansetron IVP 4 mg IVP once; over 2 minutes Route: IVP; Site: left antecubital; tb4 23:44 Follow up: Response: No adverse reaction; Nausea is decreased tb4 05/07 00:11 Drug: Piperacillin-Tazobactam IVPB 3.375 grams IVPB once over 60 mins; (mix in NS 100 tb4 mL) Route: IVPB; Infused Over: 60 mins; Site: right antecubital; 01:32 Follow up: Response: No adverse reaction; IV Status: Completed infusion tb4 01:42 Drug: morphine IVP or IV 4 mg IVP once over 4 mins Route: IVP; Infused Over: 4 mins; tb4 Site: right antecubital; Medication: 05/06 21:35 VIS not applicable for this client. tb4 Outcome: 23:08 ER care complete, transfer ordered by . sp4 05/07 01:29 Transferred by ground EMS to [facility], Transfer form completed. tb4 X-rays sent w/ patient. Note: Report given to Charles COOK 01:43 Patient left the ED. tb4 Signatures: Dispatcher [employer] EDBaljinder Rodriguez MD MD sp4 Sandra Mckee Terri RN RN tb4 Crys oNlasco RN br2
--- NOTE | 2025-05-06 23:09 | EDPHYS ---
Physician Documentation [facility] Name: Roverto Figueroa Age: 54 yrs Sex: Male : 1970 Arrival Date: 05/06/2025 Time: 20:02 Bed 4 Private MD: ED Physician Baljinder Sprgaue HPI: 05/06 20:16 This 54 yrs old Male presents to ER via Unassigned with complaints of fever . sp4 05/07 06:34 Patient with history of diabetes hypertension alcohol abuse presents with acute onset sp4 of nausea vomiting diarrhea abdominal pain. Associated fever on arrival.. Historical: - Allergies: 05/06 20:52 No Known Allergies; tb4 - PMHx: 20:52 Diabetes - NIDDM; Hypertension; tb4 - PSHx: 20:52 RIGHT BKA; toe amputation; tb4 - Immunization history:: Adult Immunizations up to date, Pneumococcal vaccine is up to date, Flu vaccine is up to date. - Infectious Disease History:: Denies. - Family history:: not pertinent. ROS: 05/07 06:34 Constitutional: Positive fever, positive nausea, positive vomiting, positive diarrhea, sp4 positive upper abdominal pain. All other systems are negative, Exam: 06:34 Constitutional: Overweight male, signs for moderate physical deconditioning, right sp4 below-knee amputee, left lower extremity swelling with chronic venous stasis skin changes. Nonambulatory at this time Head/Face: Normocephalic, atraumatic. Eyes: Pupils equal round and reactive to light, extra-ocular motions intact. Lids and lashes normal. Conjunctiva and sclera are not injected. Cornea within normal limits. Periorbital areas with no swelling, redness, or edema. ENT: Nares patent. No nasal discharge, no septal abnormalities noted. Tympanic membranes are normal and external auditory canals are clear. Oropharynx with no redness, swelling, or masses, exudates, or evidence of obstruction, uvula midline. Mucous membranes moist. Neck: Trachea midline, no thyromegaly or masses palpated, and no cervical lymphadenopathy. Supple, full range of motion without nuchal rigidity, or vertebral point tenderness. Chest/axilla: Normal chest wall appearance and motion. Nontender with no deformity. No lesions are appreciated. Cardiovascular: Regular rate and rhythm with a normal S1 and S2. No gallops, murmurs, or rubs. No pulse deficits. Respiratory: Lungs have equal breath sounds bilaterally, clear to auscultation and percussion. No rales, rhonchi or wheezes noted. No increased work of breathing, no retractions or nasal flaring. Abdomen/GI: Soft, with normal bowel sounds. No distension or tympany. No guarding or rebound. No evidence of tenderness throughout. Back: No spinal tenderness. No costovertebral tenderness. Male : Normal genitalia with no discharge or lesions. Skin: Warm, dry with normal turgor. Normal color with no rashes, no lesions, and no evidence of cellulitis. MS/ Extremity: Pulses equal, no cyanosis. Right below-knee amputee, left lower extremity chronic appearing swelling redness and venous stasis skin changes. Neuro: Awake and alert, GCS 15, oriented to person, place, time, and situation. Cranial nerves II-XII grossly intact. Motor strength 5/5 in all extremities. Sensory grossly intact. Psych: Awake, alert, with orientation to person, place and time. Behavior, mood, and affect are within normal limits Vital Signs: 05/06 20:05 BP 168 / 77; Pulse 112; Resp 24; Temp 100.8(O); Pulse Ox 100% on 2 lpm NC; Weight tb4 122.47 kg; Height 6 ft. 0 in. ; Pain 8/10; 21:10 BP 144 / 93; Pulse 118; Resp 23; Pulse Ox 100% 2 lpm ; Pain 5/10; tb4 21:23 BP 164 / 81; Pulse 120; Temp 101.9; Pulse Ox 92% on R/A; tb4 22:12 BP 114 / 69; Pulse 103; Resp 21; Temp 99(O); Pulse Ox 97% on 2 lpm NC; Pain 4/10; tb4 22:57 BP 121 / 74; Pulse 98; Resp 20; Temp 98.4(O); Pulse Ox 98% on 3 lpm NC; Pain 5/10; tb4 23:39 BP 130 / 77; Pulse 84; Resp 20; Temp 98.4; Pulse Ox 99% on 2 lpm NC; Pain 4/10; tb4 05/07 01:00 BP 129 / 78; Pulse 76; Resp 19; Temp 98.1(O); Pulse Ox 2% on 2 lpm NC; Pain 5/10; tb4 05/06 20:05 Body Mass Index 36.62 (122.47 kg, 182.88 cm) tb4 05/06 20:05 Pain Scale: Adult tb4 21:10 Pain Scale: Adult tb4 22:12 Pain Scale: Adult tb4 22:57 Pain Scale: Adult tb4 23:39 Pain Scale: Adult tb4 05/07 01:00 Pain Scale: Adult tb4 [place] Coma Score: 06:34 Eye Response: spontaneous(4). Motor Response: obeys commands(6). Verbal Response: sp4 oriented(5). Total: 15. MDM: 05/06 20:19 Medical Screening Exam initiated sp4 22:59 ED course: COMPARISON: Interval 2024 CT abdomen FINDINGS: Lungs are clear. Small sp4 mediastinal and hilar lymph nodes likely reactive in nature. No pleural effusion. No pericardial effusion. Spleen 17 cm. 5 mm stone distal common bile duct. Common bile duct is dilated. Bile duct wall thickening is present. There is stranding adjacent to the common bile duct. Cholecystectomy. The pancreas, adrenals and kidneys otherwise grossly normal. Right common iliac venous stent in place. Small left inguinal hernia. Stranding adjacent to the second and third portions of the duodenum extending inferiorly. There is no evidence of diverticulitis. Stranding adjacent to the proximal transverse colon IMPRESSION: RADIOLOGY SERVICES REPORT 5 mm stone distal common bile duct with dilatation of the extrahepatic biliary tree. Thickening of the wall of the common bile duct with surrounding stranding may indicate cholangitis. Stranding adjacent to the second and third portions of the duodenum extending inferiorly may indicate duodenal inflammation. Stranding adjacent to the proximal transverse colon may indicate colonic information. . ED course: EXAM:Extremity Venous Uni Ltd HISTORY: Left leg pain TECHNIQUE: Sonographic evaluation left lower extremity performed.Grayscale, color and spectral analysis performed on all vessels COMPARISON: 2023. FINDINGS: Left common femoral, superficial femoral, greater saphenous, popliteal and posterior tibial veins are compressible and demonstrate augmentation. Doppler demonstrates good flow. IMPRESSION: No evidence of deep venous thrombosis involving the left lower extremity. . 23:53 Data reviewed: vital signs, nurses notes, lab test result(s), radiologic studies, CT sp4 scan. 05/07 06:34 Differential diagnosis: viral Infection, bacterial infection, URI, bronchitis, sp4 pneumonia UTI, gastroenteritis. Consideration of Admission/Observation Escalation of care including admission/observation considered. ED course: Standard workup was done. Patient stable for transfer to [facility] for signs of cholangitis based on CT findings.. ED course: Sepsis reevaluation was done. Patient was administered 30 mL/kg fluid bolus with IV antibiotics. Feeling improved at this time.. 05/06 20:14 Order name: BNP; Complete Time: 22:33 4 05/06 20:14 Order name: Blood Culture Adult (2) [facility] 05/06 20:14 Order name: CBC with Diff; Complete Time: 22:33 4 05/06 20:14 Order name: CMP; Complete Time: 22:33 [facility] 05/06 20:14 Order name: Lactate w/ 2H reflex if indic.; Complete Time: 22:33 [facility] 05/06 20:14 Order name: Protime (+inr); Complete Time: 21:11 sp4 05/06 20:14 Order name: Ptt, Activated; Complete Time: 21:11 4 05/06 20:14 Order name: Troponin HS; Complete Time: 22:33 4 05/06 20:15 Order name: COVID-19 Ag + Flu A+B Ag; Complete Time: 22:33 4 05/06 20:15 Order name: UA W/ Microscopic; Complete Time: 22:33 4 05/06 20:17 Order name: Alcohol Level; Complete Time: 22:33 sp4 05/06 20:18 Order name: UDS; Complete Time: 22:33 4 05/06 20:48 Order name: T4 Free; Complete Time: 22:33 EDMS 05/06 20:48 Order name: Thyroid Stimulating Hormone; Complete Time: 22:33 EDMS 05/06 20:54 Order name: CBC Smear Scan; Complete Time: 22:33 EDMS 05/06 20:16 Order name: Extremity Venous Uni Ltd US; Complete Time: 22:33 4 05/06 20:19 Order name: CT Chest Abdomen Pelvis W/O Contrast; Complete Time: 22:33 4 05/06 20:14 Order name: EKG; Complete Time: 20:15 sp4 05/06 20:14 Order name: Accucheck; Complete Time: 21:49 sp4 05/06 20:14 Order name: Cardiac monitoring; Complete Time: 20:18 sp4 05/06 20:14 Order name: Cath; Complete Time: 21:49 sp4 05/06 20:14 Order name: EKG - Nurse/Tech; Complete Time: 20:18 sp4 05/06 20:14 Order name: IV Saline Lock - Large Bore; Complete Time: 20:44 sp4 05/06 20:14 Order name: Labs collected and sent; Complete Time: 20:44 sp4 05/06 20:14 Order name: O2 Per Protocol; Complete Time: 20:18 sp4 05/06 20:14 Order name: O2 Sat Monitoring; Complete Time: 20:18 sp4 05/06 20:14 Order name: Vital Signs; Complete Time: 21:49 sp4 05/06 23:08 Order name: NPO; Complete Time: 23:44 sp4 Administered Medications: 05/06 21:44 Drug: Acetaminophen PO 1000 mg PO once Route: PO; tb4 22:10 Follow up: Response: No adverse reaction; Temperature is decreased tb4 21:44 Drug: NS 0.9% IV (30 ml/kg) 30 ml/kg IV at bolus once; Sepsis Protocol; to be given as tb4 a bolus over 90 minutes Route: IV; Rate: bolus; Site: left antecubital; 23:45 Follow up: Response: No adverse reaction; IV Status: Completed infusion tb4 21:44 Drug: Cefepime IVPB 2 grams IVPB at 200 ml/hr once over 30 mins; (mix in NS 100 mL) tb4 Route: IVPB; Rate: 200 ml/hr; Infused Over: 30 mins; Site: left antecubital; 22:10 Follow up: Response: No adverse reaction; IV Status: Completed infusion tb4 21:44 Drug: Ondansetron IVP 8 mg IVP once; over 2 minutes Route: IVP; Site: right antecubital;tb4 22:09 Follow up: Response: No adverse reaction; Nausea is decreased tb4 21:44 Drug: morphine IVP or IV 4 mg IVP once over 4 mins Route: IVP; Infused Over: 4 mins; tb4 Site: left antecubital; 22:09 Follow up: Response: No adverse reaction; Pain is decreased; RASS: Alert and Calm (0) tb4 21:58 Drug: Diphenoxylate-Atropine PO 2 tabs PO once Route: PO; tb4 22:37 Follow up: Response: No adverse reaction tb4 21:59 Drug: vancoMYCIN IVPB 2 grams IVPB at calculated rate once Route: IVPB; Rate: tb4 calculated rate; Site: right antecubital; 05/07 00:11 Follow up: Response: No adverse reaction; IV Status: Completed infusion tb4 05/06 22:50 Not Given (Physician Discretion): ns 0.45 % with kcl20 meq/l 1000 ml IV at 125 ml/hr br2 once 22:55 Drug: Potassium PO Effervescent Tablet 50 mEq PO once; dissolve in 4 ounces of water or tb4 juice Route: PO; 23:44 Follow up: Response: No adverse reaction tb4 22:55 Drug: NS 0.9% with KCl IV 20 mEq/L 1000 ml IV at 125 ml/hr continuous Route: IV; Rate: tb4 125 ml/hr; Site: left antecubital; 23:17 Drug: morphine IVP or IV 4 mg IVP once over 4 mins Route: IVP; Infused Over: 4 mins; tb4 Site: left antecubital; 23:44 Follow up: Response: No adverse reaction; Pain is decreased; RASS: Alert and Calm (0) tb4 23:17 Drug: Ondansetron IVP 4 mg IVP once; over 2 minutes Route: IVP; Site: left antecubital; tb4 23:44 Follow up: Response: No adverse reaction; Nausea is decreased tb4 05/07 00:11 Drug: Piperacillin-Tazobactam IVPB 3.375 grams IVPB once over 60 mins; (mix in NS 100 tb4 mL) Route: IVPB; Infused Over: 60 mins; Site: right antecubital; 01:32 Follow up: Response: No adverse reaction; IV Status: Completed infusion tb4 01:42 Drug: morphine IVP or IV 4 mg IVP once over 4 mins Route: IVP; Infused Over: 4 mins; tb4 Site: right antecubital; Disposition: 06:37 Chart complete. sp4 Disposition Summary: 05/06/25 23:08 Transfer Ordered Notes: Transfer Location: [facility] sp4 Reason: Higher level of care sp4 Condition: Stable sp4 Problem: new sp4 Symptoms: are unchanged sp4 Accepting Physician: [facility] attending physician(05/07/25 01:43) tb4 Diagnosis - Cholangitis sp4 - Distal biliary duct stone, acute ascending cholangitis sp4 - Acute febrile illness, sp4 - Severe sepsis without septic shock sp4 Forms: - Medication Reconciliation Form sp4 - SBAR form sp4 Signatures: Dispatcher [employer] EDMS Baljinder Sprague MD MD sp4 Crys Nolasco RN RN br2 Inessa Holden RN RN tb4 Corrections: (The following items were deleted from the chart) 05/06 20:47 20:19 THYROID STIMULAT HORMONE+C.LAB.BRZ ordered. EDMS EDMS 20:47 20:19 T4 FREE+C.LAB.BRZ ordered. EDME EDMS 05/07 01:43 05/06 23:08 [facility] tb4
[2025-05-06] MEDS ORDERED: PIPERACIL/TAZO 3.375 GM VIAL IV ONE (23:57)
[2025-05-07] MEDS ORDERED: NA CHLORIDE 0.9% 1,000 ML ONE (01:13)
[2025-05-07] MEDS ORDERED: MORPHINE 4 MG/ML SYR ONE ×2 (01:32→01:39)
[2025-05-07 10:18] VITALS: BP 129/78; TEMP 98.1; O2SAT 2
== END 2025-05-07 01:43 | disposition short-term general hospital (02) ==
LOC: ER 20:02
DX: K83.09 Other cholangitis (principal); R65.20 Severe sepsis without septic shock; K80.80 Other cholelithiasis without obstruction; Z11.52 Encounter for screening for COVID-19
CPT/HCPCS: 93005; 87040 ×2; 85025; 81001; 36415; 87205 ×4; 85610; 83605; 85730; 84443; 84484; 84439; 80053; 83880; 80307; 71250; 74176; 93971; 82077; 87428; J2543; J3370; J0692; J2405 ×2; J7040 ×2; J7030 ×3; J3480

== ENCOUNTER 2025-06-14 22:45 | Emergency (ER) | payer BC ==
[2025-06-14] MEDS ORDERED: LIDOCAINE 1% 20 ML MDV ONE (23:05)
[2025-06-14] MEDS ORDERED: TDAP (DIPHTH,PERTUSS(ACELL),TET VAC) 0.5 ML VIAL IMVAC ONE (23:05)
[2025-06-15] MEDS ORDERED: LORAZEPAM 1 MG TABLET ONE (00:08)
--- NOTE | 2025-06-15 03:54 | ER ---
Nurse's Notes [facility] Name: Roverto Figueroa Age: 55 yrs Sex: Male : 1970 Arrival Date: 06/14/2025 Time: 22:45 Bed 2 Private MD: Diagnosis: Laceration without foreign body, left ankle;Left medial ankle acute subcutaneous laceration, initial encounter Presentation: 06/14 22:50 Chief complaint: Patient states: LACERATION ON THE LEFT LEG , CONTINUE BLEEDING . ha1 TAKING ELIQUIS . LEFT LEG SWELLING. 22:50 Coronavirus screen: Client denies travel out of the [place] in the last 14 days. Ebola ha1 Screen: No symptoms or risks identified at this time. Initial Sepsis Screen: Does the patient meet any 2 criteria? No. Patient's initial sepsis screen is negative. Does the patient have a suspected source of infection? No. Patient's initial sepsis screen is negative. Risk Assessment: Do you want to hurt yourself or someone else? Patient reports no desire to harm self or others. Onset of symptoms was June 14, 2025. 22:50 Method Of Arrival: Wheelchair ha1 22:50 Acuity: KAMRYN 3 ha1 Triage Assessment: 23:00 General: Appears uncomfortable, Behavior is cooperative. Pain: Denies pain. Neuro: ha1 Level of Consciousness is awake, alert, obeys commands, Oriented to person, place, time, situation. Respiratory: Airway is patent Respiratory effort is even, unlabored, Respiratory pattern is regular, symmetrical. Musculoskeletal:. Injury Description: Laceration sustained to left Achilles. Historical: - Allergies: 23:00 No Known Allergies; ha1 - PMHx: 23:00 Diabetes - NIDDM; Hypertension; ha1 - PSHx: 23:00 RIGHT BKA; toe amputation; LEG STENT (Unknown); ha1 - Immunization history:: Adult Immunizations unknown. - Infectious Disease History:: Denies. - Social history:: Smoking status: unknown. - Family history:: not pertinent. Screenin/27 02:08 [facility] ED Fall Risk Assessment (Adult) History of falling in the last 3 months, kd3 including since admission No falls in past 3 months (0 pts) Confusion or Disorientation No (0 pts) Intoxicated or Sedated Yes (3 pts) Impaired Gait Yes (1 pt) Mobility Assist Device Used Yes (1 pt) Altered Elimination No (0 pt) Score/Fall Risk Level 3 or more points = High Risk Maintained a safe environment. Abuse screen: Denies threats or abuse. Denies injuries from another. Nutritional screening: No deficits noted. Tuberculosis screening: No symptoms or risk factors identified. Assessment: 02:07 General: Appears in no apparent distress. Behavior is calm, cooperative. Pain: kd3 Complains of pain in left leg. Neuro: Level of Consciousness is awake, alert, obeys commands, Oriented to person, place, time, situation. Cardiovascular: Capillary refill < 3 seconds Patient's skin is warm and dry. Respiratory: Airway is patent Trachea midline Respiratory effort is even, unlabored, Respiratory pattern is regular, symmetrical. Injury Description: Laceration sustained to left leg. 03:36 General: Pt resting in the stretcher, eyes closed, respirations are even and unlabored, kd3 skin is warm and dry, NAD. warm blankets provided. . 04:20 General: PT unable to be safely DC 'd at this time due to altered mentation post lg3 administration of Ativan. will continue to monitor and DC when full mentation returns. 05:00 General: Appears in no apparent distress. Behavior is calm, cooperative. Neuro: Level kd3 of Consciousness is awake, alert, obeys commands, Oriented to person, place, time, situation. Cardiovascular: Capillary refill < 3 seconds Patient's skin is warm and dry. 05:25 Reassessment: Patient appears in no apparent distress at this time. Patient and/or ss12 family updated on plan of care and expected duration. Pain level reassessed. Neuro: Level of Consciousness is awake, alert, obeys commands, Oriented to person, place, time, situation. Cardiovascular: Patient's skin is warm and dry. Respiratory: Airway is patent Respiratory effort is even, unlabored, Respiratory pattern is regular, symmetrical. 05:46 Reassessment: No changes from previously documented assessment. Patient and/or family kd3 updated on plan of care and expected duration. Pain level reassessed. Patient is alert, oriented x 3, equal unlabored respirations, skin warm/dry/pink. Vital Signs: 06/14 22:50 BP 134 / 76; Pulse 97; Resp 20 S; Temp 97; Pulse Ox 96% ; Weight 129.73 kg; ha1 06/15 00:13 BP 128 / 73; Pulse 81; Resp 17; Pulse Ox 98% on R/A; kd3 02:06 BP 99 / 60; Pulse 84; Resp 20; Pulse Ox 92% on 2 lpm NC; kd3 03:35 BP 106 / 51; Pulse 85; Resp 16; Pulse Ox 92% on 2 lpm NC; kd3 04:39 BP 111 / 62; Pulse 81; Resp 16 S; Pulse Ox 95% on 2 lpm NC; lg3 05:21 BP 92 / 54; Pulse 86; Resp 16; Pulse Ox 94% 2 lpm ; ss12 05:46 BP 108 / 64; Pulse 85; Resp 16; Pulse Ox 93% on 2 lpm NC; kd3 06:43 BP 107 / 77; Pulse 84; Resp 19; Pulse Ox 94% on R/A; kd3 Krista Coma Score: 03:50 Eye Response: spontaneous(4). Motor Response: obeys commands(6). Verbal Response: sp4 oriented(5). Total: 15. ED Course: 06/14 22:46 Patient arrived in ED. im 22:49 Jeevan Quintana PA-C is PHCP. cp 22:49 Baljinder Sprague MD is Attending Physician. cp 23:00 Triage completed. ha1 23:07 Akilah Goodman, RN is Primary Nurse. kd3 06/15 02:08 Patient has correct armband on for positive identification. Provided Education on: lac kd3 repair . Client placed on continuous cardiac and pulse oximetry monitoring. NIBP monitoring applied. 02:08 Arm band placed on right wrist. kd3 02:49 Assist provider with laceration repair on left leg. kd3 04:40 Patient did not have IV access during this emergency room visit. lg3 Administered Medications: 06/14 23:14 Drug: Boostrix Tdap IM 0.5 ml IM once; as a single dose Route: IM; Site: right deltoid; kd3 06/15 04:39 Follow up: Response: (VIS) Vaccine information sheet provided today. Questions and/or lg3 concerns addressed. VIS edition date: Apr 24, 2021.; No adverse reaction 00:12 Drug: LORazepam PO 2 mg PO once Route: PO; kd3 04:39 Follow up: Response: No adverse reaction; RASS: Light sedation (-2) lg3 00:21 Drug: Lidocaine Infiltration (1 %) 40 ml 20 ml Infiltration once; to bedside Volume: 20 lg3 ml; Route: Infiltration; 04:28 Drug: Trimethoprim-Sulfamethoxazole PO (160 mg-800 mg (DS) 1 tablet PO once Route: PO; lg3 04:39 Follow up: Response: No adverse reaction lg3 04:28 Drug: Cephalexin PO 500 mg PO once Route: PO; lg3 04:39 Follow up: Response: No adverse reaction lg3 Medication: 04:40 Vaccine Information Statement (VIS) provided today. Questions and/or concerns lg3 addressed. VIS edition date: April 24, 2021. Outcome: 03:53 Discharge ordered by . spDina 06:43 Discharged to home via wheelchair, kd3 06:43 Condition: stable 06:43 Discharge instructions given to patient, Instructed on discharge instructions, follow up and referral plans. medication usage, Demonstrated understanding of instructions, follow-up care, medications, Prescriptions given X 2, 06:43 Patient left the ED. kd3 Signatures: Jeevan Quintana, PATRIC PA-C Codie Gray, RN RN lg3 Akilah Goodman RN RN kd3 Claudia Fishman RN RN ha1 Baljinder Sprague MD MD sp4 Yovana Dockery Shamaila, RN RN ss12 Corrections: (The following items were deleted from the chart) 02:09 02:09 VIS not applicable for this client. kd3 kd3
--- NOTE | 2025-06-15 03:54 | EDPHYS ---
Physician Documentation [facility] Name: Roverto Figueroa Age: 55 yrs Sex: Male : 1970 Arrival Date: 06/14/2025 Time: 22:45 Bed 2 Private MD: ED Physician Baljinder Sprague HPI: 06/15 03:39 This 55 yrs old Male presents to ER via Wheelchair with complaints of Leg sp4 Injury. 03:39 This is 55 year old male who presents with acute Left ankle laceration. Patient takes sp4 Eliquis BID . He consumed alcohol , Patient has history of right below-knee amputation secondary to uncontrolled diabetes. Also persistent swelling and edema of the left lower extremity. Patient states he may have lacerated his left ankle on his motorized wheelchair. Patient presents with persistent bleeding. There is approximately 4 cm jagged laceration to the left inner ankle. . Historical: - Allergies: 06/14 23:00 No Known Allergies; ha1 - PMHx: 23:00 Diabetes - NIDDM; Hypertension; ha1 - PSHx: 23:00 RIGHT BKA; toe amputation; LEG STENT (Unknown); ha1 - Immunization history:: Adult Immunizations unknown. - Infectious Disease History:: Denies. - Social history:: Smoking status: unknown. - Family history:: not pertinent. ROS: 06/15 03:39 Constitutional: Negative for fever, chills, and weight loss, positive left middle sp4 ankle laceration pain and bleeding All other systems are negative, Exam: 03:39 Constitutional: This is a well developed, well nourished patient who is awake, alert, sp4 and in no acute distress. 03:50 Head/Face: Normocephalic, atraumatic. Eyes: Pupils equal round and reactive to light, sp4 extra-ocular motions intact. Lids and lashes normal. Conjunctiva and sclera are not injected. Cornea within normal limits. Periorbital areas with no swelling, redness, or edema. ENT: Nares patent. No nasal discharge, no septal abnormalities noted. Tympanic membranes are normal and external auditory canals are clear. Oropharynx with no redness, swelling, or masses, exudates, or evidence of obstruction, uvula midline. Mucous membranes moist. Neck: Trachea midline, no thyromegaly or masses palpated, and no cervical lymphadenopathy. Supple, full range of motion without nuchal rigidity, or vertebral point tenderness. Chest/axilla: Normal chest wall appearance and motion. Nontender with no deformity. No lesions are appreciated. Cardiovascular: Regular rate and rhythm with a normal S1 and S2. No gallops, murmurs, or rubs. No pulse deficits. Respiratory: Lungs have equal breath sounds bilaterally, clear to auscultation and percussion. No rales, rhonchi or wheezes noted. No increased work of breathing, no retractions or nasal flaring. Abdomen/GI: Soft, with normal bowel sounds. No distension or tympany. No guarding or rebound. No evidence of tenderness throughout. Back: No spinal tenderness. No costovertebral tenderness. Skin: Warm, dry with normal turgor. Normal color with no rashes, moderate left lower extremity venous stasis skin changes, persistent chronic edema, left inguinal laceration over the left ankle MS/ Extremity: Pulses equal, no cyanosis. Right below-knee amputee, left lower extremity chronic edema left lower extremity venous stasis, left inner ankle jagged laceration measuring 4 cm long with active bleeding. Bleeding controlled with pressure dressing Neuro: Awake and alert, GCS 15, oriented to person, place, time, and situation. Cranial nerves II-XII grossly intact. Motor strength 5/5 in all extremities. Sensory grossly intact. Psych: Awake, alert, with orientation to person, place and time. Behavior, mood, and affect are within normal limits Vital Signs: 06/14 22:50 BP 134 / 76; Pulse 97; Resp 20 S; Temp 97; Pulse Ox 96% ; Weight 129.73 kg; ha1 06/15 00:13 BP 128 / 73; Pulse 81; Resp 17; Pulse Ox 98% on R/A; kd3 02:06 BP 99 / 60; Pulse 84; Resp 20; Pulse Ox 92% on 2 lpm NC; kd3 03:35 BP 106 / 51; Pulse 85; Resp 16; Pulse Ox 92% on 2 lpm NC; kd3 04:39 BP 111 / 62; Pulse 81; Resp 16 S; Pulse Ox 95% on 2 lpm NC; lg3 05:21 BP 92 / 54; Pulse 86; Resp 16; Pulse Ox 94% 2 lpm ; ss12 05:46 BP 108 / 64; Pulse 85; Resp 16; Pulse Ox 93% on 2 lpm NC; kd3 06:43 BP 107 / 77; Pulse 84; Resp 19; Pulse Ox 94% on R/A; kd3 Krista Coma Score: 03:50 Eye Response: spontaneous(4). Motor Response: obeys commands(6). Verbal Response: sp4 oriented(5). Total: 15. Laceration: 03:50 Wound Repair of 4cm ( 1.6in ) subcutaneous laceration to left medial ankle. Irregularly sp4 shaped.. Minimal bleeding noted.. Moderate contamination.. Distal neuro/vascular/tendon intact. Anesthesia: Wound infiltrated with 30 mls of 1% lidocaine. Wound prep: Moderate cleansing, Copious irrigation. Skin closed with 8 3-0 Silk using vertical mattress sutures and sterile technique. Dressed with 4x4's, pressure dressing, non-adherent dressing. Patient tolerated well. MDM: 06/14 22:56 Medical Screening Exam initiated sp4 06/15 03:50 Differential diagnosis: open fracture, closed fracture, contusion, abrasion, sp4 tendonitis. Data reviewed: vital signs, nurses notes. Consideration of Admission/Observation Escalation of care including admission/observation considered. ED course: Laceration repaired. Patient was given 2 mg p.o. Ativan for agitation. At this time patient is resting. Visibly intoxicated. Patient was advised to discontinue alcohol abuse. He is stable for discharge home.. 06/14 22:56 Order name: Dressing - Wound; Complete Time: 00:21 sp4 06/14 22:56 Order name: Gloves, Sterile; Complete Time: 00:21 sp4 06/14 22:56 Order name: Setup Suture Tray; Complete Time: 00:21 sp4 Administered Medications: 06/14 23:14 Drug: Boostrix Tdap IM 0.5 ml IM once; as a single dose Route: IM; Site: right deltoid; kd3 06/15 04:39 Follow up: Response: (VIS) Vaccine information sheet provided today. Questions and/or lg3 concerns addressed. VIS edition date: Apr 24, 2021.; No adverse reaction 00:12 Drug: LORazepam PO 2 mg PO once Route: PO; kd3 04:39 Follow up: Response: No adverse reaction; RASS: Light sedation (-2) lg3 00:21 Drug: Lidocaine Infiltration (1 %) 40 ml 20 ml Infiltration once; to bedside Volume: 20 lg3 ml; Route: Infiltration; 04:28 Drug: Trimethoprim-Sulfamethoxazole PO (160 mg-800 mg (DS) 1 tablet PO once Route: PO; lg3 04:39 Follow up: Response: No adverse reaction lg3 04:28 Drug: Cephalexin PO 500 mg PO once Route: PO; lg3 04:39 Follow up: Response: No adverse reaction lg3 Disposition Summary: 06/15/25 03:53 Discharge Ordered Notes: Location: Home sp4 Problem: new sp4 Symptoms: have improved sp4 Condition: Stable sp4 Diagnosis - Laceration without foreign body, left ankle sp4 - Left medial ankle acute subcutaneous laceration, initial encounter sp4 Followup: sp4 - With: Private Physician - When: 10 - 14 days - Reason: Recheck today's complaints Discharge Instructions: - Discharge Summary Sheet sp4 - Laceration Care, Adult, [id number] sp4 Forms: - Patient Portal Instructions sp4 Prescriptions: - Cephalexin 500 mg Oral Capsule - take 1 capsule ORAL route every 12 hours for 10 days; 20 capsule; Refills: 0, sp4 Product Selection Permitted - Bactrim DS 800-160 mg Oral Tablet - take 1 tablet ORAL route every 12 hours for 10 days; 20 tablet; Refills: 0, sp4 Product Selection Permitted Signatures: Codie Brower, RN RN lg3 Akilah Goodman, RN RN kd3 Claudia Fishman, RN RN ha1 Baljinder Sprague MD MD sp4
[2025-06-15] MEDS ORDERED: CEPHALEXIN 250 MG CAP ONE (04:08)
[2025-06-15] MEDS ORDERED: SMZ./TMP. 800/160 MG TABLET ONE (04:09)
[2025-06-15 06:51] VITALS: TEMP 97
[2025-06-15 07:03] VITALS: BP 107/77; O2SAT 94
== END 2025-06-15 06:43 | disposition home or self-care (01) ==
LOC: ER 22:45
PROC: 0JQR3ZZ Repair Left Foot Subcutaneous Tissue and Fascia, Percutaneous Approach (ICD-10-PCS; principal; 2025-06-15)
DX: S91.012A Laceration without foreign body, left ankle, initial encounter (principal); E11.9 Type 2 diabetes mellitus without complications; I10 Essential (primary) hypertension; W26.8XXA Contact with other sharp object(s), not elsewhere classified, initial encounter; Y93.9 Activity, unspecified; Y92.019 Unspecified place in single-family (private) house as the place of occurrence of the external cause; Z89.511 Acquired absence of right leg below knee; Z23 Encounter for immunization
CPT/HCPCS: 90715; 96372; 99284; 12032; 12002; J2003